=== PATIENT | male | born 1955 | race Caucasian/White ===

== ENCOUNTER 2019-12-25 13:59 | Outpatient (REF) | payer OTHER, SELFPAY | END 2019-12-25 14:00 | disposition home or self-care (01) | LOC: HO.LAB 13:59 | PROVIDERS: Visit Provider Internal Medicine | DX: Z20.828 Contact with and (suspected) exposure to other viral communicable diseases (principal) | CPT/HCPCS: U0003 ==

== ENCOUNTER → 2020-02-01 08:14 | Outpatient (BNVA) | payer OTHER, SELFPAY | PROVIDERS: Visit Provider Nurse Practitioner Gerontology | DX: E11.65 Type 2 diabetes mellitus with hyperglycemia (principal); E11.22 Type 2 diabetes mellitus with diabetic chronic kidney disease; E11.319 Type 2 diabetes mellitus with unspecified diabetic retinopathy without macular edema; E78.5 Hyperlipidemia, unspecified; I12.9 Hypertensive chronic kidney disease with stage 1 through stage 4 chronic kidney disease, or unspecified chronic kidney disease; N18.9 Chronic kidney disease, unspecified; Z71.89 Other specified counseling; Z79.899 Other long term (current) drug therapy; Z79.4 Long term (current) use of insulin; Z79.82 Long term (current) use of aspirin | CPT/HCPCS: Q3014 ==

== ENCOUNTER → 2020-04-26 09:35 | Outpatient (BNVA) | payer OTHER, SELFPAY | PROVIDERS: PCP Nurse Practitioner Family; Visit Provider Internal Medicine | DX: E11.22 Type 2 diabetes mellitus with diabetic chronic kidney disease (principal); I12.9 Hypertensive chronic kidney disease with stage 1 through stage 4 chronic kidney disease, or unspecified chronic kidney disease; N18.31 Chronic kidney disease, stage 3a; Z79.4 Long term (current) use of insulin; E78.5 Hyperlipidemia, unspecified; G47.33 Obstructive sleep apnea (adult) (pediatric); E66.9 Obesity, unspecified | CPT/HCPCS: 93005; 99202 ==

== ENCOUNTER → 2020-05-09 07:50 | Outpatient (BNVA) | payer OTHER, SELFPAY | PROVIDERS: PCP Nurse Practitioner Family; Visit Provider Nurse Practitioner Gerontology | CPT/HCPCS: 99212 ==

== ENCOUNTER → 2020-05-16 08:23 | Outpatient (BNVA) | payer OTHER, SELFPAY | PROVIDERS: PCP General Practice; Visit Provider Nurse Practitioner Gerontology | DX: E11.65 Type 2 diabetes mellitus with hyperglycemia (principal); E11.22 Type 2 diabetes mellitus with diabetic chronic kidney disease; I12.9 Hypertensive chronic kidney disease with stage 1 through stage 4 chronic kidney disease, or unspecified chronic kidney disease; N18.9 Chronic kidney disease, unspecified; Z79.4 Long term (current) use of insulin; E78.5 Hyperlipidemia, unspecified; I10 Essential (primary) hypertension | CPT/HCPCS: 82947; 99212 ==

== ENCOUNTER → 2020-05-30 08:55 | Outpatient (BNVA) | payer OTHER, SELFPAY | PROVIDERS: PCP Nurse Practitioner Family; Visit Provider Nurse Practitioner Gerontology | DX: E11.65 Type 2 diabetes mellitus with hyperglycemia (principal); E11.22 Type 2 diabetes mellitus with diabetic chronic kidney disease; N18.9 Chronic kidney disease, unspecified; E78.5 Hyperlipidemia, unspecified; I10 Essential (primary) hypertension; Z79.4 Long term (current) use of insulin | CPT/HCPCS: 82947; 99212 ==

== ENCOUNTER → 2020-06-06 07:57 | Outpatient (REF) | payer OTHER, SELFPAY ==
--- NOTE | ~2020-06-06 | NM_ITS ---
Lexiscan Myocardial perfusion study Indication: Diabetes, hypertension, hyperlipidemia, chronic kidney disease, obesity, assess for coronary disease and ischemia Technique: The patient was brought in for a Lexiscan perfusion study on 06/06/2020 and was injected 0.4 mg of Lexiscan intravenously. Within a minute of this injection 30 mCi of sestamibi was given intravenously. Images were obtained using the SPECT gamma camera interlaced with the gating device. Images were obtained in supine position. Resting perfusion study was performed on 06/11/2020. Patient was administered 30 mCi of sestamibi intravenously at rest. Images were then obtained in supine position. Total DLP 79mGy-cm. Images were processed with the software and compared side to side in short axis, horizontal long axis and vertical long axis views. Findings: Raw acquisition was reviewed. The stress perfusion study showed mildly diminished tracer uptake in the mid anterior wall. With CT attenuation correction there is improvement suggesting soft tissue attenuation artifact. The gated study shows normal LV systolic function with calculated LVEF of 65%. LV cavity is normal in size. The gated study shows normal wall thickening and contraction of segments. Resting study shows diminished tracer uptake along the mid anterior wall that is seen in both uncorrected as well as attenuation corrected images. Gating at rest reveals normal wall motion with ejection fraction at 49%-visually appears higher. The findings are consistent with no definitive reversible defects. Fixed mid anterior defect likely from soft tissue attenuation. NM/NM cardiolite stress test Impression: 1. Myocardial perfusion imaging study shows no definitive evidence of any ischemia or infarction. Likely normal myocardial perfusion. 2. Gated LVEF is 65% during stress. 3. Transient ischemic dilatation not present. EKG component of the test reported separately.
--- NOTE | 2020-06-06 08:06 | CA_ITS ---
Transthoracic Echocardiogram Patient (Last, First, Middle): Levi Del Toro M Gender: Male Date of : 1955 Age: 65 Procedure Date: 06/06/2020 Procedure Type: Transthoracic Echocardiogram Location: OP Height: 172.72 cm Weight: 89.81 kg BSA: 2.04 m2 Heart Rate: bpm BP: 118 / 52 mmHg Donor Processor: CHARLES Referring MD: Demetrius Mcclure MD Symptoms: I25.10 - Atherosclerotic heart disease of [place] coronary artery without angina pectoris Study Quality: Fair ECG Rhythm: Sinus Conclusions: - The left ventricular systolic function is normal. The visually estimated ejection fraction is between 55-60%. - There is mild calcification of the aortic valve. - No obvious valvular pathology seen on this study. Findings Procedure Information Contrast agent, definity, is being given per protocol without apparent complications. Left Ventricle Normal left ventricular cavity size. There is normal left ventricular wall thickness. The left ventricular systolic function is normal. The visually estimated ejection fraction is between 55-60%. There is no evidence of regional wall motion abnormalities. Diastolic function is normal for age. Right Ventricle The right ventricle was not well visualized. There is normal right ventricular systolic function. Atria The left atrium is normal in size. The right atrium is normal in size. Aortic Valve There is a normal trileaflet aortic valve. There is mild calcification of the aortic valve. There is no aortic valve stenosis. There is no aortic valve regurgitation. Mitral Valve The mitral valve appears normal. There is no mitral valve regurgitation. There is no mitral valve stenosis. Pulmonic Valve The pulmonic valve was not well visualized. Tricuspid Valve Normal tricuspid valve structure. There is no tricuspid valve regurgitation. The pulmonary artery systolic pressure is normal. Great Vessels The aortic annulus, sinuses of valsalva, and asc aorta are normal in size. Venous The inferior vena cava was not well visualized. Pericardium/Pleural There is no evidence of pericardial effusion. Prior Study Comparison No prior study available for comparison. Recommendations, Care & Conclusions No obvious valvular pathology seen on this study. Measurements 2D Linear Measurements IVSd: 0.91 0.6-0.9/0.6-1.0 cm LVIDd: 4.21 3.9-5.3/4.2-5.9 cm LVIDd Index: 2.06 2.4-3.2/2.2-3.1 cm/m2 LVIDs: 2.98 2.0-3.6 cm LVPWd: 1.00 0.7-1.1 cm Ao Root: 2.90 2.1-3.5 cm LA Diam: 3.80 2.7-3.8/3.0-4.0 cm LAIDs Index: 1.86 1.5-2.3 cm/m2 LV Mass: 160.90 67-162/88-224 g LV Mass Index: 78.87 43-95/49-115 g/m2 LVOT Diam: 2.00 3.0+(-)1.3 cm 2D Systolic Function EF 4C: 63.40 >55% EF 2C: 47.30 >55% EF BiP: 56.80 >55% Mitral Valve MV Pk E: 0.95 MV PK A: 0.66 MV Decel Time: 151.00 E/A: 1.40 E'Lateral: 12.50 E'Medial: 6.74 E/E' Med: 14.10 E/E' Lat: 7.60 PHT: 44.00 MVA PHT: 5.00 Decel Jerauld: 6.27 Aortic Valve AoV Pk Jarret: 1.22 AoV Pk Grad: 6.00 LVOT LVOT Pk Jarret: 1.13 LVOT Mn Jarret: 0.70 LVOT VTI: 0.27 LVOT Pk Grad: 5.00 LVOT Mn Grad: 2.00 LVOT Diam: 2.00 LVOT Area: 3.14 Diastolic Function MV Pk E: 0.95 MV Pk A: 0.66 E/A: 1.40 E'Medial: 6.74 E/E' Med: 14.10 E' Laterial: 12.50 E/E' Lat: 7.60 Tricuspid Valve TR Pk Jarret: 2.26 TR Pk Grad: 20.00 Great Vessels Aorta Ao Root-2D: 2.90 2.0-3.7 cm Ao Asc: 3.00 2.1-3.4 cm Updated in Other Vendor System with Status of Final Demetrius Mcclure MD electronically signed on 06/06/2020 6:35:54 PM with status of Final
--- NOTE | 2020-06-06 08:07 | CA_ITS ---
Acquisition Time: 2020-06-06 09:41:05 Total Exercise Time: 00:03:14 Test Indications: HTN, DM Medications: SEE CHART Protocol: SEAN Max HR: 112 BPM 73% of Pred: 153 BPM Max BP: 126/052 mmHG Max Work Load: 4.8 METS Tried exercise however pt became very tired, c/o SOB, request to stop the treaadmill. Test changed to pharmacological. No anginal sx. EKG with no arrhythmia, non-diagnostic for ischemia. Nuclear images to follow. Normotensive response to test. Test reviewed with Dr. Mcclure. Referred By: Demetrius Mcclure Overread By: Francia Chin NP
== END ==
LOC: HO.CARD 07:57
PROVIDERS: Visit Provider Internal Medicine
DX: I25.10 Atherosclerotic heart disease of native coronary artery without angina pectoris (principal); I11.0 Hypertensive heart disease with heart failure; N18.30 Chronic kidney disease, stage 3 unspecified; E11.65 Type 2 diabetes mellitus with hyperglycemia; E78.5 Hyperlipidemia, unspecified; Z79.4 Long term (current) use of insulin
CPT/HCPCS: 78452; 93016; 93017; 93018; 93306; A9500; J0280; J2785; Q9957

== ENCOUNTER → 2020-06-20 09:56 | Outpatient (BNVA) | payer OTHER, SELFPAY | PROVIDERS: PCP General Practice; Visit Provider Nurse Practitioner Family | DX: E11.22 Type 2 diabetes mellitus with diabetic chronic kidney disease (principal); I12.9 Hypertensive chronic kidney disease with stage 1 through stage 4 chronic kidney disease, or unspecified chronic kidney disease; N18.31 Chronic kidney disease, stage 3a; E78.5 Hyperlipidemia, unspecified; E66.9 Obesity, unspecified | CPT/HCPCS: 99212 ==

== ENCOUNTER 2020-07-01 11:39 | Outpatient (REF) | payer OTHER, SELFPAY ==
[2020-07-01 11:48] VITALS: BMI 30.4
[2020-07-01 11:49] VITALS: BP 140/63; PULSE 75; RESP 16; TEMP 36.4; O2SAT 97
== END 2020-07-01 11:40 | disposition home or self-care (01) ==
LOC: HO.MS 11:39
PROVIDERS: PCP General Practice; Visit Provider Ophthalmology
PROC: (CPT 66821; principal; 2020-07-01 13:40)
DX: H26.492 Other secondary cataract, left eye (principal); Z96.1 Presence of intraocular lens; E11.3593 Type 2 diabetes mellitus with proliferative diabetic retinopathy without macular edema, bilateral; E11.22 Type 2 diabetes mellitus with diabetic chronic kidney disease; I12.9 Hypertensive chronic kidney disease with stage 1 through stage 4 chronic kidney disease, or unspecified chronic kidney disease; N18.30 Chronic kidney disease, stage 3 unspecified; Z79.4 Long term (current) use of insulin; Z79.899 Other long term (current) drug therapy
CPT/HCPCS: 66821

== ENCOUNTER → 2020-08-14 08:10 | Outpatient (BNVA) | payer OTHER, SELFPAY | PROVIDERS: PCP General Practice; Visit Provider Nurse Practitioner Gerontology | DX: E11.65 Type 2 diabetes mellitus with hyperglycemia (principal); E11.22 Type 2 diabetes mellitus with diabetic chronic kidney disease; I12.9 Hypertensive chronic kidney disease with stage 1 through stage 4 chronic kidney disease, or unspecified chronic kidney disease; N18.30 Chronic kidney disease, stage 3 unspecified; E78.5 Hyperlipidemia, unspecified; Z79.4 Long term (current) use of insulin | CPT/HCPCS: 82947; Q3014 ==

== ENCOUNTER 2020-11-04 10:44 | Outpatient (REF) | payer MEDICARE, SELFPAY ==
--- NOTE | ~2020-11-04 | US_ITS ---
EXAMINATION: US VENOUS ULTRASOUND WITH DOPPLER LOWER EXTREMITY, LEFT CLINICAL INFORMATION: Left lower extremity pain and swelling. Assess for occult DVT. COMPARISON: None TECHNIQUE: Ultrasound of the deep veins is performed from the hip to the calf with compression sonography and color and pulse Doppler assessment. Spectral analysis with color-flow imaging is performed. FINDINGS: There is normal venous compression and respiratory variation and augmented flow. The visualized common femoral vein, superficial femoral vein, profunda femoral vein, popliteal vein, and the trifurcation region shows no evidence of deep venous thrombosis. No popliteal fossa cyst. There is some mild subcutaneous edema in the region of the calf consistent with the clinical history. No focal loculated fluid collection. US/US venous duplex LE LT IMPRESSION: No DVT demonstrated in the left lower extremity.
== END 2020-11-04 10:45 | disposition home or self-care (01) ==
LOC: HO.US 10:44
PROVIDERS: PCP General Practice; Visit Provider Family Medicine
DX: M79.89 Other specified soft tissue disorders (principal)
CPT/HCPCS: 93971

== ENCOUNTER 2020-11-05 07:52 | Emergency (ER) | payer MEDICARE, SELFPAY ==
--- NOTE | ~2020-11-05 | XR_ITS ---
EXAMINATION: LEFT FOOT AND ANKLE X-RAY CLINICAL INFORMATION: Atraumatic left foot and ankle swelling COMPARISON: None TECHNIQUE: 3 views of the left foot and 3 views of the left ankle FINDINGS: Left foot: There are Lisfranc fracture dislocations of the second through fifth metatarsal tarsal joints. There is lateral and probably dorsal displacement of the metatarsal bones with respect to the tarsal bones. There is a small erosion of the proximal phalanx of the great toe at the IP joint. There is soft tissue swelling over the midfoot. There is soft tissue arterial calcification. Left ankle: Bone alignment is normal. No fracture or dislocation is seen. The ankle mortise is normal. Soft tissues are normal. XR/XR ankle LT min 3V IMPRESSION: Left foot: Lisfranc fracture dislocations of the second through fifth metatarsal tarsal joints. Left ankle: Unremarkable exam.
--- NOTE | ~2020-11-05 | XR_ITS ---
EXAMINATION: LEFT FOOT AND ANKLE X-RAY CLINICAL INFORMATION: Atraumatic left foot and ankle swelling COMPARISON: None TECHNIQUE: 3 views of the left foot and 3 views of the left ankle FINDINGS: Left foot: There are Lisfranc fracture dislocations of the second through fifth metatarsal tarsal joints. There is lateral and probably dorsal displacement of the metatarsal bones with respect to the tarsal bones. There is a small erosion of the proximal phalanx of the great toe at the IP joint. There is soft tissue swelling over the midfoot. There is soft tissue arterial calcification. Left ankle: Bone alignment is normal. No fracture or dislocation is seen. The ankle mortise is normal. Soft tissues are normal. XR/XR foot LT min 3V IMPRESSION: Left foot: Lisfranc fracture dislocations of the second through fifth metatarsal tarsal joints. Left ankle: Unremarkable exam.
[2020-11-05 09:08] VITALS: BP 142/57; PULSE 79; RESP 18; TEMP 36.3; O2SAT 97; BMI 30.4
--- NOTE | 2020-11-05 10:07 | ED_ITS ---
HPI - Extremity Problem General Chief complaint: Extremity Injury, Lower Stated complaint: lt leg swollen & red Time Seen by Provider: 11/05/20 09:19 Source: patient and family Mode of arrival: ambulatory Limitations: language barrier ([place]raltarian-speaking) History of Present Illness HPI Narrative: 65-year-old male with a past medical history of diabetes, CKD, hypertension, hyperlipidemia and obesity presenting to the ED with complaints of atraumatic left lower leg/ankle/foot pain/swelling with redness for the past few days worse today. At [facility] yesterday and had an ultrasound of his left lower extremity although he is presenting here for further evaluation treatment because he has not heard about any of the results and continues to have pain and is concerned for possible ?cellulitis?. He denies any fevers, chills, dizziness, headaches, chest pain, paresthesias, shortness of breath, dyspnea on exertion, orthopnea, cough, abdominal pain, back pain, nausea/vomiting/diarrhea, black or bloody stools, weakness, recent travel or sick contacts, recent insect bites or any other symptoms complaints or concerns at this time. I reviewed the patient's ultrasound that was done as an outpatient yesterday and was negative for any DVTs or any other acute processes. MD Complaint: extremity pain and extremity swelling Onset (ago): day(s) (For the past few days worse today) Pain Consistency: constant Location: left and lower extremity (Lower leg/ankle/foot joint) Quality: aching Radiation: none Relieving factors: nothing Exacerbating factors: weight bearing, walking and palpation Associated symptoms: denies other symptoms Related Data Home Medications Medication Instructions Recorded Confirmed amlodipine 5 mg tablet 5 mg PO DAILY 02/01/20 08/14/20 aspirin 81 mg tablet,delayed 81 mg PO BEDTIME 02/01/20 08/14/20 release atorvastatin 40 mg tablet 40 mg PO DAILY 02/01/20 08/14/20 blood sugar diagnostic #10 ea 02/01/20 08/14/20 furosemide 20 mg tablet 20 mg PO DAILY 02/01/20 08/14/20 hydrochlorothiazide 25 mg tablet 25 mg PO DAILY 02/01/20 08/14/20 lancets 33 gauge #100 ea 02/01/20 08/14/20 losartan 100 mg tablet 100 mg PO QAM 02/01/20 08/14/20 metoprolol succinate 200 mg 200 mg PO DAILY 02/01/20 08/14/20 tablet,extended release 24 hr omega-3 fatty acids-fish oil 340 0 cap PO 02/01/20 08/14/20 mg-1,000 mg capsule omeprazole 20 mg capsule,delayed 20 mg PO QAM 02/01/20 08/14/20 release spironolactone 25 mg tablet 25 mg PO DAILY 04/26/20 08/14/20 sildenafil 100 mg tablet 100 mg PO DAILY PRN 05/16/20 08/14/20 Previous Rx's Medication Instructions Recorded metformin 500 mg tablet,extended 1,000 mg PO BID #120 tab 01/30/20 release 24 hr pen needle, diabetic 32 gauge x 1 ea SUBCUT QID 30 Days #100 ea 03/07/20 (BD Ultra-Fine Kyra Pen Needle) insulin aspart U-100 100 unit/mL See Rx Instructions SUBCUT QID 30 05/30/20 (3 mL) subcutaneous pen (Novo Days #60 ml Flexpen U-100 Insulin aspart) insulin glargine U-300 conc 300 125 unit SUBCUT DAILY #18 ml 09/22/20 unit/mL (3 mL) subcutaneous pen (Toujeo Max U-300 SoloStar) acetaminophen 500 mg tablet 1,000 mg PO QID PRN #14 tab 11/05/20 (Tylenol Extra Strength) cephalexin 500 mg capsule 500 mg PO Q6H 10 Days #40 cap 11/05/20 doxycycline monohydrate 100 mg 100 mg PO BID 10 Days #20 cap 11/05/20 capsule tramadol 50 mg tablet 50 mg PO BID PRN #14 tab 11/05/20 Allergies Allergy/AdvReac Type Severity Reaction Status Date / Time FRESH FRUIT Allergy Unknown ITCHY EARS Uncoded 08/14/20 08:42 THROAT Sesonal allergies Allergy Unknown itchiness Uncoded 08/14/20 08:42 some fresh fruit Allergy Unknown itchiness Uncoded 08/14/20 08:42 Review of Systems Review of Systems: Constitutional : No Weight loss, No Fever, No Chills, No Night Sweats, No Fatigue, No Malaise ENT/Mouth : No Hearing loss, No Ear Pain, No Nasal Congestion, No Sinus Pain, No Hoarseness, No sore throat, No Rhinorrhea, No Swallowing Difficulty Eyes: No Eye Pain, No Swelling, No Redness, No Foreign Body, No Discharge, No Vision Changes Cardiovascular : No Chest Pain, No SOB, No Dyspnea on Exertion, No Orthopnea, No Edema, No Palpitations Respiratory : No Cough, No Sputum, No Wheezing, No Smoke Exposure, No Dyspnea Gastrointestinal : No Nausea, No Vomiting, No Diarrhea, No Constipation, No abdominal Pain, No Hematochezia, No Melena Genitourinary : no irregular bleeding, No Dysuria, No Urinary Frequency, No Hematuria, No Urinary Incontinence, No Urgency, No Flank Pain, No Urinary Flow Changes, No Hesitancy Musculoskeletal : Positive left leg pain/swelling/surrounding erythema, No Myalgias Skin : No Skin Lesions, No rash Neuro : No Weakness, No Numbness, No Paresthesias, No Loss of Consciousness, No Dizziness, No Headache Psych : No Anxiety/Panic, No Depression, No SI/HI/AH/VH, No Social Issues, Heme/Lymph: No Bruising, No Bleeding,No Lymphadenopathy Endocrine : No Polyuria, No Polydipsia, No Temperature Intolerance Yes all other systems are reviewed and are negative [facility] Past Medical History Attestation statement: The following information was validated with the patient. Medical History Allergic rhinitis CKD (chronic kidney disease) stage 3, GFR 30-59 ml/min Erectile dysfunction Essential hypertension Hyperlipidemia LDL goal <70 Obesity (BMI 30-39.9) Obstructive sleep apnea Other and unspecified hyperlipidemia Retinopathy Tubular adenoma Type 2 diabetes mellitus with chronic kidney disease Type 2 diabetes mellitus with hyperglycemia, with long-term current use of insulin Vitamin D deficiency Surgical History History of surgical procedure on eye proper using laser Hx of cataract surgery Hx of cholecystectomy Hx of colonoscopy with polypectomy Family History Family History Father Myocardial infarction CVD (cardiovascular disease) Mother Diabetes Social History Social History Household Members: Significant Other Patient Tobacco Use Status: Former Tobacco user Advance Directives: Yes Advance Directives Information Provided: Yes Advance Directives on File: No Physical Exam Vital Signs: Vital Signs: Last Vital Signs Temp 97.3 F 11/05/20 09:08 Pulse 79 11/05/20 09:08 Resp 18 11/05/20 09:08 BP 142/57 H 11/05/20 09:08 Pulse Ox 97 11/05/20 09:08 Body Mass Index 30.4 vital signs have been reviewed as normal and appeared to be correct. Blood pressure hypertensive 142/57. Heart rate normal. Respiration rate normal. Temperature normal. Oxygen saturation normal. Appearance: Alert. Oriented X3. No acute distress. Head: Normal external exam. Normocephalic. Atraumatic. Eyes: PERRLA. EOMI. Conjunctiva and sclera normal. Eyelids normal. ENT: Pharynx normal. Uvula midline. Moist mucous membranes. Neck: Normal inspection. Neck supple. FROM. No adenopathy. No meningeal signs. CVS: Normal heart rate and rhythm. Heart sound normal. Pulses normal throughout. No murmurs/rales/gallops. Respiratory: No respiratory distress. Painless inspiration. Breath sounds normal. No wheezes/rales/rhonchi noted. Chest nontender. No accessory muscle usage noted or decreased air movement noted. Abdomen: Soft and nontender. Bowel sounds normal in all 4 quadrants. No distention noted. No organomegaly noted. No visible injury noted. Back: Full range of motion noted. No rashes/lesion/induration/fluctuance or signs of infection noted. Skin: Skin warm and dry. Normal skin color. Normal skin turgor. No rashes/lesions/lacerations noted. Extremities: Patient noted to have +1 pitting edema to the left lower peterson/ankle/foot area. Although he is noted to have pulses. No edema to right l ower extremity. Patient has mild erythema to the left lateral foot/ankle/left lower extremity joints. No streaking/induration/foreign bodies. Patient has full range of motion of all toe/foot/ankle joint. No ligamentous laxity noted. Otherwise all other extremities exhibit normal range of motion and nontender. Neuro: Oriented X 3. No motor deficit. No sensory deficit. Reflexes normal. Normal steady gait. No focal neuro deficits noted. Vascular: + radial pulses/+ 2 distal pedal pulses/+2 dorsalis pedis b/l. Normal cap refill. No cyanosis noted to upper extremity nails and lower extremity toes nails. Course Course Course Narrative: 10:45 - 65-year-old male presenting to the ED with complaints of atraumatic left lower extremity pain/swelling/erythema for the past few days worse today. Had an outpatient ultrasound done yesterday which was negative for DVT. On exam patient is noted to have mild soft tissue swelling and erythema consistent with cellulitis. No streaking/induration/fluctuance. X-ray obtained and revealed Lisfranc fracture dislocations of the second through fifth metatarsal tarsal joints. Therefore consulted with Orthopedics and they recommended a short posterior splint and crutches. Will DC home with symptomatic treatment referral to follow up with Orthopedics along with antibiotics for cellulitis infection and to return if any new or worsening symptoms follow-up with primary care provider. Patient and at bedside understands agrees this plan. MDM - Extremity (Nontraumatic) Medical Records Attestation: I reviewed the patient's medical records. Imaging Data Venous duplex ultrasound of left lower extremity: Attestation: I personally reviewed and interpreted this imaging study as follows: Radiologist's impression: FINDINGS: There is normal venous compression and respiratory variation and augmented flow. The visualized common femoral vein, superficial femoral vein, profunda femoral vein, popliteal vein, and the trifurcation region shows no evidence of deep venous thrombosis. ? No popliteal fossa cyst. There is some mild subcutaneous edema in the region of the calf consistent with the clinical history. No focal loculated fluid collection. US/US venous duplex LE LT IMPRESSION: No DVT demonstrated in the left lower extremity. Left ankle/foot x-ray: Attestation: I personally reviewed and interpreted this imaging study as follows: Radiologist's impression: FINDINGS: Left foot: There are Lisfranc fracture dislocations of the second through fifth metatarsal tarsal joints. There is lateral and probably dorsal displacement of the metatarsal bones with respect to the tarsal bones. There is a small erosion of the proximal phalanx of the great toe at the IP joint. There is soft tissue swelling over the midfoot. There is soft tissue arterial calcification. Left ankle: Bone alignment is normal. No fracture or dislocation is seen. The ankle mortise is normal. Soft tissues are normal. XR/XR foot LT min 3V IMPRESSION: Left foot: Lisfranc fracture dislocations of the second through fifth metatarsal tarsal joints. ? Left ankle: Unremarkable exam. Procedures Orthopedic Splinting/Casting Injury #1: Side: left Lower Extremity Injury Location: ankle, foot and toe Lower Extremity Immobilizer: posterior splint Other Orthopedic Equipment: crutches Discharge Plan Discharge Clinical Impression: Cellulitis, Lisfranc fracture Patient Disposition: Home, Self-Care Instructions: Cellulitis (ED), Foot Fracture in Adults (ED) Prescriptions: New doxycycline monohydrate 100 mg capsule 100 mg PO BID 10 Days Qty: 20 RF: 0 cephalexin 500 mg capsule 500 mg PO Q6H 10 Days Qty: 40 RF: 0 tramadol 50 mg tablet 50 mg PO BID PRN (Reason: pain) Qty: 14 RF: 0 acetaminophen [Tylenol Extra Strength] 500 mg tablet 1,000 mg PO QID PRN (Reason: fever or pain) Qty: 14 RF: 0 No Action metformin 500 mg tablet extended release 24 hr 1,000 mg PO BID Qty: 120 RF: 2 pen needle, diabetic [BD Ultra-Fine Kyra Pen Needle] 32 gauge x 5/32 needle 1 ea subcut QID 30 Days Qty: 100 RF: 11 Toujeo Max U-300 SoloStar 300 unit/mL (3 mL) insulin pen 125 unit subcut DAILY Qty: 18 RF: 1 spironolactone 25 mg tablet 25 mg PO DAILY RF: 0 insulin aspart U-100 [Novolog Flexpen U-100 Insulin] 100 unit/mL (3 mL) ins ulin pen See Rx Instructions subcut QID 30 Days Qty: 60 RF: 3 (DME) lancets 33 gauge misc See Rx Instructions ea .ROUTE .MEDSUPPLY Qty: 100 RF: 0 (DME) FreeStyle Lite Strips Strip See Rx Instructions ea Not Applicable .MEDSUPPLY Qty: 10 RF: 0 aspirin 81 mg tablet,delayed release (DR/EC) 81 mg PO BEDTIME RF: 0 atorvastatin 40 mg tablet 40 mg PO DAILY RF: 0 hydrochlorothiazide 25 mg tablet 25 mg PO DAILY RF: 0 Fish Oil 340-1,000 mg capsule 0 cap PO RF: 0 losartan 100 mg tablet 100 mg PO QAM RF: 0 furosemide 20 mg tablet 20 mg PO DAILY RF: 0 omeprazole 20 mg capsule,delayed release(DR/EC) 20 mg PO QAM RF: 0 amlodipine 5 mg tablet 5 mg PO DAILY RF: 0 metoprolol succinate 200 mg tablet extended release 24 hr 200 mg PO DAILY RF: 0 sildenafil 100 mg tablet 100 mg PO DAILY PRNRF: 0 Referrals: Serena Montilla MD [Primary Care Provider] - 2 days Remington Lebron MD [Physician] - 2 days Print Language: Gibraltarian
== END 2020-11-05 12:19 | disposition home or self-care (01) ==
PROVIDERS: Emergency Provider Internal Medicine; PCP General Practice
DX: S82.892A Other fracture of left lower leg, initial encounter for closed fracture (principal); M25.572 Pain in left ankle and joints of left foot; L03.116 Cellulitis of left lower limb; X58.XXXA Exposure to other specified factors, initial encounter; Y93.9 Activity, unspecified; Y92.9 Unspecified place or not applicable; Y99.9 Unspecified external cause status; Z79.899 Other long term (current) drug therapy; Z87.891 Personal history of nicotine dependence
CPT/HCPCS: 29515; 73610; 73630; 99283; 99284

== ENCOUNTER → 2020-11-07 10:56 | Outpatient (BNVA) | payer MEDICARE, SELFPAY | PROVIDERS: Visit Provider Physician Assistant | DX: E11.610 Type 2 diabetes mellitus with diabetic neuropathic arthropathy (principal) | CPT/HCPCS: 99202 ==

== ENCOUNTER → 2020-11-18 14:26 | Outpatient (BNVA) | payer MEDICARE, SELFPAY | PROVIDERS: PCP General Practice; Visit Provider Physician Assistant | DX: E11.610 Type 2 diabetes mellitus with diabetic neuropathic arthropathy (principal) | CPT/HCPCS: 99212 ==

== ENCOUNTER 2021-01-23 09:28 | Outpatient (REF) | payer MEDICARE, SELFPAY ==
--- NOTE | ~2021-01-23 | MM_ITS ---
EXAMINATION: BONE DENSITOMETRY CLINICAL INDICATION: Dislocation of the tarsometatarsal joint of the left foot. COMPARISON: This is the patient's baseline examination. TECHNIQUE: Using a [employer] DXA System (software version: 13.1) manufactured by [employer], dual-energy x-ray absorptiometry was performed of the lumbar spine and left hip. The images are of good technical quality. Summary results are attached. FINDINGS: AP SPINE L1-L2 (excluding L3 and L4): The data of L1-L4 has been changed to exclude the L3 and L4 vertebral bodies, because degenerative changes at these levels may cause overestimation of lumbar spine density. BMD 1.331 g/cm2, Z-score 1.2, T-score 1.1, normal. LEFT FEMUR, NECK: BMD 0.999 g/cm2, Z-score 0.3, T-score -0.5, normal. LEFT FEMUR, TOTAL: BMD 1.086 g/cm2, Z-score 0.3, T-score -0.1, normal. IDENTIFIED RISK FACTORS: Hypogonadism, renal, secondary osteoporosis. HISTORY OF FRACTURE: None listed. MEDICATIONS: Calcium, vitamin D. MM/XR DEXA axial skeleton IMPRESSION: 1. DIAGNOSIS: Normal bone density based on the lowest T-score value of -0.5 in the femoral neck applying World Health Organization criteria. 2. 10-YEAR FRACTURE RISK PREDICTION, FRAX: Major osteoporotic fracture (clinical spine, forearm, hip or shoulder) 2.7%. Hip fracture 0.3%. 3. Treatment Recommendations: NOF guidelines recommend consideration for treatment in postmenopausal women and men age 50 and older presenting with the following: -A hip or vertebral (clinical or morphometric) fracture. -T-score less than or equal to -2.5 at the femoral neck or spine after appropriate evaluation to exclude secondary causes. -Low bone mass at the hip or spine and a 10-year fracture probability by FRAX of greater than or equal to 3% for hip fracture or greater than or equal to 20% for major osteoporotic fracture based on the [place] adapted WHO algorithm. 4. Other Recommendations: All treatment decisions require clinical judgment and consideration of individual patient factors, including patient preferences, comorbidities, previous drug use, risk factors not captured in the FRAX model (e.g. frailty, falls, vitamin D deficiency, increased bone turnover, interval significant decline in bone density) and possible under or overestimation of fracture risk by FRAX. FUTURE SCAN RECOMMENDATION: People with diagnosed cases of osteoporosis or at high risk for fracture should have regular bone mineral density tests. For patients eligible for Medicare, routine testing is allowed once every 2 years. The testing frequency can be increased to one year for patients who have rapidly progressing disease, those who are receiving or discontinuing medical therapy to restore bone mass, or have additional risk factors.
== END 2021-01-23 09:29 | disposition home or self-care (01) ==
LOC: HO.MAMMO 09:28
PROVIDERS: Visit Provider General Practice
DX: Z13.820 Encounter for screening for osteoporosis (principal); S93.325D Dislocation of tarsometatarsal joint of left foot, subsequent encounter; E29.1 Testicular hypofunction; Z79.899 Other long term (current) drug therapy
CPT/HCPCS: 77080

== ENCOUNTER → 2021-03-21 09:59 | Outpatient (BNVA) | payer MEDICARE, SELFPAY | PROVIDERS: PCP General Practice; Visit Provider Nurse Practitioner Gerontology | DX: E11.65 Type 2 diabetes mellitus with hyperglycemia (principal); I12.9 Hypertensive chronic kidney disease with stage 1 through stage 4 chronic kidney disease, or unspecified chronic kidney disease; E11.22 Type 2 diabetes mellitus with diabetic chronic kidney disease; N18.30 Chronic kidney disease, stage 3 unspecified; E78.5 Hyperlipidemia, unspecified; Z79.4 Long term (current) use of insulin | CPT/HCPCS: 82947; 83036; 99212 ==

== ENCOUNTER → 2021-06-03 10:35 | Outpatient (BNVA) | payer OTHER, SELFPAY | PROVIDERS: PCP General Practice; Referring Provider General Practice; Visit Provider Internal Medicine | DX: I12.9 Hypertensive chronic kidney disease with stage 1 through stage 4 chronic kidney disease, or unspecified chronic kidney disease (principal); E11.22 Type 2 diabetes mellitus with diabetic chronic kidney disease; N18.31 Chronic kidney disease, stage 3a; E11.65 Type 2 diabetes mellitus with hyperglycemia; E78.5 Hyperlipidemia, unspecified; G47.33 Obstructive sleep apnea (adult) (pediatric); E66.9 Obesity, unspecified; Z68.30 Body mass index [BMI] 30.0-30.9, adult; Z79.4 Long term (current) use of insulin | CPT/HCPCS: 93005; 99212 ==

== ENCOUNTER → 2021-06-20 08:47 | Outpatient (BNVA) | payer OTHER, SELFPAY | PROVIDERS: PCP General Practice; Visit Provider Nurse Practitioner Gerontology | DX: E11.65 Type 2 diabetes mellitus with hyperglycemia (principal); E11.22 Type 2 diabetes mellitus with diabetic chronic kidney disease; I12.9 Hypertensive chronic kidney disease with stage 1 through stage 4 chronic kidney disease, or unspecified chronic kidney disease; N18.30 Chronic kidney disease, stage 3 unspecified; Z79.4 Long term (current) use of insulin | CPT/HCPCS: 82947; 83036; 99212 ==

== ENCOUNTER 2021-08-09 03:14 | Inpatient (IN) | payer OTHER, SELFPAY ==
--- NOTE | ~2021-08-09 | CT_ITS ---
EXAMINATION: CT HEAD WITHOUT CONTRAST CT CERVICAL SPINE WITHOUT CONTRAST CLINICAL INFORMATION: Fall. On blood thinners. COMPARISON: None. TECHNIQUE: Multidetector CT imaging of the head and cervical spine was performed without the use of intravenous contrast. Multiplanar reformats are reviewed. This CT examination was performed using dose optimization techniques as appropriate, variously including the following: *Automated exposure control *Adjustment of mA and/or kV according to patient size (this includes techniques or standardized protocols for targeted exams where dose is matched to indication/reason for exam; i.e. extremities or head) *Use of iterative reconstruction technique DLP: 1442 mGy-cm. FINDINGS: There is no evidence of acute intracranial hemorrhage or territorial infarction. No abnormal mass effect or midline shift is seen. Sears to white matter differentiation is well preserved. No extra-axial fluid collections are identified. The ventricles are normal in size. There is no abnormal attenuation within the brain parenchyma. Cavernous carotid calcifications. The osseous structures and soft tissues are normal. The mastoid air cells and visualized portions of the paranasal sinuses are well-aerated. Atlantooccipital alignment is maintained. The vertebral bodies and posterior elements align normally. No acute fracture or subluxation. Vertebral body heights are maintained. Endplate osteophytes and loss of disc space height present from C4 through T1, with uncovertebral arthrosis. Venetie bilateral carotid bulb calcifications. The imaged lung apices are clear CT/CT cervical spine wo con IMPRESSION: No acute intracranial pathology. No cervical spine fracture or malalignment.
--- NOTE | ~2021-08-09 | XR_ITS ---
EXAMINATION: XR CHEST CLINICAL INFORMATION: Confirm endotracheal tube placement. COMPARISON: Chest radiograph 08/14/2021. TECHNIQUE: Frontal view of the chest was obtained. FINDINGS: An endotracheal tube terminates 1 cm superior to the prince. Enteric tube terminates in the region of the gastric antrum. Right upper quadrant surgical clips are noted. Multifocal airspace type opacities are present in the lung with findings most pronounced in the right upper lung zone. No effusions or pneumothoraces noted. Mild left base airspace opacity is noted with obscuration of the left hemidiaphragmatic margin. A left subclavian catheter terminates in projection with the right atrium. XR/XR chest 1V IMPRESSION: *Endotracheal tube terminating 1 cm superior to the prince. *Enteric tube terminating in the region of the gastric antrum. *Left subclavian catheter terminating projection with the right atrium. *Multifocal airspace disease with findings most pronounced the right upper lung zone slightly increased in prominence compared with 08/14/2021 findings may represent infection. *Newly identified left base airspace opacity compared with 08/14/2021 which may present atelectasis and/or consolidation. This critical result regarding endotracheal tube placement was discussed with NARA Jason by telephone at 08/14/2021 11:11 PM and it was ascertained that the content and urgency of the report was understood at the time of direct communication.
--- NOTE | ~2021-08-09 | XR_ITS ---
EXAMINATION: XR CHEST CLINICAL INFORMATION: OG tube placement COMPARISON: 08/18/2021 TECHNIQUE: Frontal view of the chest was obtained. FINDINGS: Endotracheal tube terminates 4.5 cm above the prince. Dobbhoff tube extends into the small bowel. There is no separate enteric tube identified. Left subclavian central venous catheter terminates over the right atrium. Cardiac leads overlie the chest. The lungs are well expanded. Diffuse patchy bilateral airspace opacities. This is similar to prior. No pneumothorax. No effusion. The cardiomediastinal silhouette is unchanged. XR/XR chest 1V IMPRESSION: Endotracheal tube terminates 4.5 cm above the prince. Dobbhoff tube terminates in the small bowel. Similar appearance of diffuse bilateral airspace opacities.
--- NOTE | ~2021-08-09 | CT_ITS ---
EXAMINATION: CT ABDOMEN AND PELVIS WITHOUT CONTRAST CLINICAL INFORMATION: Sepsis. Elevated liver function tests. COMPARISON: Previous abdominal ultrasound and CT from 2006 TECHNIQUE: Multidetector volumetric imaging was performed from the superior aspect of the liver through the pubic symphysis. Sagittal and coronal reformatted images were obtained on the technologist's workstation. This CT examination was performed using dose optimization techniques as appropriate, variously including the following: *Automated exposure control *Adjustment of mA and/or kV according to patient size (this includes techniques or standardized protocols for targeted exams where dose is matched to indication/reason for exam; i.e. extremities or head) *Use of iterative reconstruction technique DLP: 925 mGy-cm FINDINGS: Consolidation suggestive of pneumonia, right greater than left. There are tiny bilateral pleural effusions. LUNG BASES: There is bilateral lower lobe LIVER, GALLBLADDER, AND BILIARY TREE: The liver is cirrhotic. No focal liver lesion. No biliary duct dilatation. The gallbladder has been removed. PANCREAS: Unremarkable. SPLEEN: Unremarkable. ADRENAL GLANDS: Unremarkable. KIDNEYS AND URETERS: The kidneys are normal in size, shape, and attenuation. No hydronephrosis, hydroureter, or calculi seen. No perinephric stranding. BLADDER: Unremarkable. GASTROINTESTINAL TRACT: There is mild wall thickening of the colon questionable for colitis versus changes related to liver disease. There is a small duodenal diverticulum adjacent to the head of the pancreas. The small bowel is otherwise normal. The appendix is normal. The stomach is normal. There is a small amount of ascites. ABDOMINAL WALL: No significant hernia is appreciated. LYMPH NODES: Normal. VASCULAR: There are upper abdominal varices. PELVIC VISCERA: Prostate gland is slightly enlarged measuring 3 4 x 4.4 cm in AP and transverse dimension. OSSEOUS STRUCTURES: There are generative changes of the spine. CT/CT abdomen pelvis wo con IMPRESSION: Cirrhotic-appearing liver. Small amount of ascites. Wall thickening of the colon question representing colitis versus changes related to liver disease. Bilateral lower lobe infiltrates, right greater than left and tiny bilateral pleural effusions. Fleischner guidelines were followed.
--- NOTE | ~2021-08-09 | XR_ITS ---
EXAMINATION: XR CHEST CLINICAL INFORMATION: NG tube placement COMPARISON: CT scan performed at 8:09 AM, one hour ago TECHNIQUE: Frontal view of the chest was obtained. XR/XR chest 1V FINDINGS/IMPRESSION: Since the CT scan, a feeding tube has been removed which had its tip postpyloric in position. An NG tube is in place with the tip at the GE junction and the side port in the esophagus. This should be advanced. An esophageal temperature probe is present with its tip about 10 cm above the GE junction. An ET tube about 5 cm above the prince. Persistent airspace opacities.
--- NOTE | ~2021-08-09 | US_ITS ---
EXAMINATION: US VENOUS ULTRASOUND WITH DOPPLER LOWER EXTREMITY, BILATERAL CLINICAL INFORMATION: Edema and swelling. COMPARISON: None TECHNIQUE: Ultrasound of the deep veins is performed from the hip to the calf with compression sonography and color and pulse Doppler assessment. Spectral analysis with color-flow imaging is performed. FINDINGS: RIGHT: There is normal venous compression and respiratory variation and augmented flow. The visualized common femoral vein, superficial femoral vein, profunda femoral vein, popliteal vein, and the trifurcation region shows no evidence of deep venous thrombosis. There is no significant popliteal fossa cyst. LEFT: There is normal venous compression and respiratory variation and augmented flow. The visualized common femoral vein, superficial femoral vein, profunda femoral vein, popliteal vein, and the trifurcation region shows no evidence of deep venous thrombosis. There is no significant popliteal fossa cyst. There is a fluid collection along the medial lower extremity, which appears to extend through the subcutaneous fat. If the patient's symptoms persist, followup ultrasound in 5 days 7 days might be of value to exclude proximal propagation from a non-visualized calf vein. US/US venous duplex LE IMPRESSION: * No DVT demonstrated in the bilateral lower extremities. * There is a fluid collection along the medial LEFT lower extremity which is nonspecific. The collection appears to extend through the subcutaneous fat may represent a ruptured Slater's cyst.
--- NOTE | ~2021-08-09 | XR_ITS ---
EXAMINATION: XR CHEST CLINICAL INFORMATION: Nasogastric tube placement. COMPARISON: 08/14/2021 chest radiograph. TECHNIQUE: Frontal view of the chest was obtained. XR/XR chest 1V FINDINGS/IMPRESSION: Final images shows an enteric tube with tip terminating over the distal gastric lumen. Nonobstructive bowel gas pattern. Pulmonary findings without significant change.
--- NOTE | ~2021-08-09 | XR_ITS ---
EXAMINATION: XR CHEST CLINICAL INFORMATION: Hypoxia COMPARISON: 08/15/2021 TECHNIQUE: Frontal view of the chest was obtained. FINDINGS: Endotracheal tube remains in place with tip approximately 6 cm above the prince. Diffuse bilateral airspace opacities again are noted. These appear somewhat less confluent in the right upper lobe but appear worsened elsewhere. Previously seen left lower lobe consolidation has improved. No definite pleural effusion or pneumothorax. Cardiomediastinal silhouette unchanged. Enteric tube descends the esophagus into the stomach with the tip not seen off the inferior margin of the film. XR/XR chest 1V IMPRESSION: Persistent diffuse bilateral airspace opacities. Improved and less confluent in the right upper lobe but worsened elsewhere.
--- NOTE | ~2021-08-09 | CT_ITS ---
EXAMINATION: CT CHEST WITHOUT CONTRAST CLINICAL INFORMATION: Hypoxia. Question alveolar hemorrhage pneumonia. COMPARISON: Chest 08/14/2021. TECHNIQUE: Multidetector volumetric CT imaging of the chest was done. Axial MIP volume rendering provided. Sagittal and coronal reformatted images were obtained. This CT examination was performed using dose optimization techniques as appropriate, variously including the following: *Automated exposure control *Adjustment of mA and/or kV according to patient size (this includes techniques or standardized protocols for targeted exams where dose is matched to indication/reason for exam; i.e. extremities or head) *Use of iterative reconstruction technique DLP: 331 mGy-cm FINDINGS: Lungs and pleura *Marked right upper lobe multifocal airspace disease. *Mild scattered superior segment right upper pulmonary lobe airspace opacities. *Small dependent layering bilateral pleural effusions and moderate bibasilar compressive atelectasis of the lungs. *No pneumothoraces. *Mild left upper lobe airspace opacities. Mild right middle lobe airspace opacities. Mediastinum: Left subclavian catheter terminating in the region of the cavoatrial junction. Normal heart size. Diffuse coronary artery calcific atherosclerosis. No mediastinal lymphadenopathy. Endotracheal tube terminating 2.5 cm superior to the prince. CHEST WALL: No axillary lymphadenopathy. Internally visualized abdominal structures: Cholecystectomy clips noted. Enteric tube terminating in the region of the gastric antrum. The adrenal glands are not fully included in the image [id number]. Osseous structures: Multilevel endplate osteophytosis of the thoracic spine which is mild. CT/CT chest wo con IMPRESSION: *Dense multifocal right upper lobe consolidation and mild multifocal right middle and left upper lobe consolidation. Findings are suspicious for infection. *Small bilateral pleural effusions and bibasilar dependent compressive atelectasis of the lungs. *Endotracheal tube terminating 2.5 cm superior to the prince. *Left subclavian catheter terminating at the cavoatrial junction. *Enteric tube terminating with in the gastric antrum. This result including findings regarding endotracheal tube positioning was discussed with NARA Jason MD by telephone at 08/15/2021 2:16 AM and it was ascertained that the content and urgency of the report was understood at the time of direct communication.
--- NOTE | ~2021-08-09 | XR_ITS ---
EXAMINATION: XR CHEST CLINICAL INFORMATION: Line placement COMPARISON: Previous chest x-rays most recent from yesterday TECHNIQUE: Frontal view of the chest was obtained. FINDINGS: There is an endotracheal tube with tip 4 cm above the prince. There is a nasogastric tube with tip projecting over the distal stomach. There is a left subclavian line with tip projecting over the cavoatrial junction. There is a new right jugular line with tip projecting over the SVC. The cardiac and mediastinal contours are stable. There is bilateral multilobar airspace disease. This is not appear appreciably changed from yesterday's exam. There may be volume loss to the left hemithorax. There is no significant pleural effusion. There is no pneumothorax. Bony structures are unremarkable. XR/XR chest 1V IMPRESSION: Right jugular line projects over SVC. Satisfactory position of support line and tubes. I lateral multilobar airspace disease probably representing pneumonia not appreciably changed.
--- NOTE | ~2021-08-09 | CT_ITS ---
EXAMINATION: CT CHEST WITHOUT CONTRAST CLINICAL INFORMATION: ARDS. COMPARISON: Chest radiograph yesterday and CT chest 08/15/2021. TECHNIQUE: Multidetector volumetric CT imaging of the chest was done. Axial MIP volume rendering provided. Sagittal and coronal reformatted images were obtained. This CT examination was performed using dose optimization techniques as appropriate, variously including the following: *Automated exposure control *Adjustment of mA and/or kV according to patient size (this includes techniques or standardized protocols for targeted exams where dose is matched to indication/reason for exam; i.e. extremities or head) *Use of iterative reconstruction technique DLP: 346 mGy-cm FINDINGS: LUNGS AND PLEURA: Again seen are diffuse lung space opacities. There is some improvement in consolidation in the right upper lobe but persistent abnormality is present. There is an improvement in bilateral pleural effusions with only trace remaining. Bibasilar atelectasis remains. There is a mild increase in peripheral patchy densities seen in the left upper lobe (5:176). MEDIASTINUM: ET tube is about 4.5 cm above the prince. A left subclavian central line has its tip in the right atrium. A feeding tube is present with its tip postpyloric in position. There is mild cardiac enlargement. No pericardial effusion. AXILLA: No lymphadenopathy. UPPER ABDOMEN: Status post cholecystectomy. OSSEOUS STRUCTURES: Degenerative changes again noted in the spine. CT/CT chest wo con IMPRESSION: Considerable airspace opacity remains throughout the lungs. Some improvement in consolidation in the right upper lobe with some mild increase in opacities in the left upper lobe. Small pleural effusions have improved with trace fluid remaining. Fleischner guidelines were followed.
--- NOTE | ~2021-08-09 | XR_ITS ---
EXAMINATION: XR CHEST CLINICAL INFORMATION: Feeding tube check COMPARISON: Chest x-ray 08/14/2021 TECHNIQUE: Frontal view of the chest was obtained. FINDINGS: There is a feeding tube with tip projecting over the small bowel probably in the proximal jejunum. This has advanced into the small bowel compared to August 14 chest x-ray. There is a paucity of bowel gas seen in the abdomen and pelvis. No free air is seen. There is airspace disease at the lung bases. XR/XR chest 1V IMPRESSION: Feeding tube tip projects over the small bowel probably in the proximal jejunum.
--- NOTE | ~2021-08-09 | XR_ITS ---
EXAMINATION: XR CHEST CLINICAL INFORMATION: Wheezing. Concern for fluid. COMPARISON: Chest x-ray 08/11/2021 TECHNIQUE: Frontal portable view of the chest was obtained. 1711 hours FINDINGS: Low lung volume causing prominence of the pulmonary vasculature. No dense consolidation. No large pleural effusion or pneumothorax. Cardiac mediastinal contours are unchanged. Multilevel degenerative spondylosis spine. XR/XR chest 1V IMPRESSION: Low lung volume. No acute abnormality of chest.
--- NOTE | ~2021-08-09 | XR_ITS ---
EXAMINATION: XR CHEST CLINICAL INFORMATION: Evaluate for infection COMPARISON: 08.09.2021 TECHNIQUE: Frontal view of the chest was obtained. FINDINGS: No significant abnormality is noted involving the heart, lungs, mediastinum, bony thorax or soft tissues. XR/XR chest 1V IMPRESSION: Unremarkable examination.
--- NOTE | ~2021-08-09 | US_ITS ---
EXAMINATION: US VENOUS ULTRASOUND WITH DOPPLER LOWER EXTREMITY, LEFT CLINICAL INFORMATION: Left lower extremity swelling COMPARISON: Left lower extremity DVT study 11/04/2020 TECHNIQUE: Ultrasound of the deep veins is performed from the hip to the calf with compression sonography and color and pulse Doppler assessment. Spectral analysis with color-flow imaging is performed. FINDINGS: There is normal venous compression and respiratory variation and augmented flow. The visualized common femoral vein, superficial femoral vein, profunda femoral vein, popliteal vein, and the trifurcation region shows no evidence of deep venous thrombosis. There is no significant popliteal fossa cyst. If the patient's symptoms persist, followup ultrasound in 5 days 7 days might be of value to exclude proximal propagation from a non-visualized calf vein. US/US venous duplex LE IMPRESSION: No DVT demonstrated in the left lower extremity.
--- NOTE | ~2021-08-09 | MR_ITS ---
EXAMINATION: MR CERVICAL SPINE WITHOUT AND WITH CONTRAST CLINICAL INFORMATION: MSSA bacteremia. Neck pain. COMPARISON: Cervical spine CT 08/09/2021. TECHNIQUE: MRI of the cervical spine was performed with routine sequences without and with intravenous contrast. A total of 10 ml of Gadavist was intravenously administered. FINDINGS: The vertebral alignment appears normal There is disc height loss at C4-C5, C5-C6, C6-C7, and C7-T1. Mild endplate edema seen at C6-C7 and C7-T1. Chronic degenerative endplate changes are noted with subchondral cystic change and Schmorl's node, better defined on the recent cervical spine CT from 08/09/2021. There is no evidence of subchondral collapse. No cervical cord signal abnormality is seen. No abnormal enhancement is seen within the spinal canal. The imaged portions of the intracranial contents appear normal. There are small amount of retropharyngeal fluid. There is fluid within the pharynx. Ill-defined soft tissue edema is seen within the posterior paraspinal soft tissues from C5 to T2. No defined collection is seen within this region. SPINAL LEVELS: C2-C3: No posterior disc abnormality. No spinal canal or neural foraminal stenosis. C3-C4: Mild disc bulging. No spinal canal or neural foraminal stenosis. C4-C5: Disc osteophyte complex with left uncovertebral hypertrophy and ligamentum flavum infolding resulting in severe spinal canal stenosis. Severe left and moderate right neural foraminal stenosis. C5-C6: Disc osteophyte complex with uncovertebral hypertrophy resulting in moderate spinal canal stenosis and severe bilateral neural foraminal stenosis. C6-C7: Osteophyte complex with left more than right uncovertebral hypertrophy resulting in severe left and moderate right neural foraminal stenosis. C7-T1: Disc osteophyte complex with uncovertebral hypertrophy resulting in mild to moderate spinal canal stenosis with severe bilateral neural foraminal stenosis. MR/MR cervical spine wo/w con IMPRESSION: No definite destructive change identified. No definite discitis osteomyelitis is seen at this time. Nonspecific edema seen at the endplates of C6-C7 and C7-T1, presumably degenerative. If there is high concern for discitis osteomyelitis, consider repeat examination at a later date. At C4-C5 there is severe spinal canal stenosis with cord deformity and severe left and moderate right neural foraminal stenosis. Consider neurosurgical evaluation. Additional multilevel high-grade neural foraminal stenosis is demonstrated and detailed above. Small amount of retropharyngeal fluid.
--- NOTE | ~2021-08-09 | CT_ITS ---
EXAMINATION: CT foot RT wo con, CT foot LT wo con CLINICAL INFORMATION: Reason for Exam EDEMA COMPARISON: None. TECHNIQUE: Unenhanced CT of the left and right feet with multiple coronal and sagittal reformatted images. This CT examination was performed using dose optimization techniques as appropriate, variously including the following: *Automated exposure control *Adjustment of mA and/or kV according to patient size (this includes techniques or standardized protocols for targeted exams where dose is matched to indication/reason for exam; i.e. extremities or head) *Use of iterative reconstruction technique DLP: 283 mGy-cm FINDINGS: Left foot: Extensive mid foot erosions, osseous fragments and subluxations are present. No definitive acute appearing fractures visualized. Diffuse subcutaneous reticulation and soft tissue inflammatory changes are noted with findings most pronounced along the dorsum of the midfoot. No soft tissue emphysematous changes. Extensive vascular calcifications. No widening of the Lisfranc ligament space. Fragmentation is most pronounced in the lateral cuneiform and intermediate cuneiform. Right foot: Marked midfoot fragmentation and cortical irregularity is present. Extensive subcutaneous reticulation is noted. Subcutaneous reticulation and thickening is most prominent along the dorsum of the midfoot. No soft tissue emphysematous changes are identified. Diffuse vascular calcifications are present. No widening of the Lisfranc ligamentous space identified. Marked joint space narrowing and osteophytosis is present at the midfoot metatarsal articulations. No acute appearing fractures identified. CT/CT foot LT wo con IMPRESSION: Unenhanced CT of the left and right feet. *Diffuse extensive subcutaneous edema and possible inflammatory changes. Findings are most pronounced along the dorsum of the left and right midfoot regions. Findings may represent a combination of edema and/or cellulitis. No soft tissue emphysema. *Marked left mid foot chronic degenerative changes and multifocal midfoot osseous fragments. Findings may represent a combination of neuropathic arthropathy and advanced osteoarthritis (Charcot foot). *Marked right mid foot chronic degenerative changes. *Diffuse vascular calcifications.
--- NOTE | ~2021-08-09 | US_ITS ---
EXAMINATION: US VENOUS WITH DOPPLER UPPER EXTREMITY, BILATERAL CLINICAL INFORMATION: Edema and swelling COMPARISON: None TECHNIQUE: Ultrasound of the upper extremity is performed using compression sonography and color and pulse Doppler flow with assessment of augmentation of flow. There is also imaging and Doppler assessment of the jugular and subclavian veins. Spectral analysis with color-flow imaging is performed. FINDINGS: Respiratory variation, normal compression, and augmented flow are noted throughout the upper extremity including the axillary, brachial, cubital, and radial and ulnar veins. There is normal flow in the internal jugular and subclavian veins. There is no visible deep or superficial thrombophlebitis. If the patient's symptoms progress, a followup ultrasound in 5 -7 days might be of value to exclude proximal propagation from a nonvisualized distal arm vein. US/US venous duplex UE BI IMPRESSION: No DVT demonstrated in the bilateral upper extremities
--- NOTE | ~2021-08-09 | CT_ITS ---
EXAMINATION: CT LOWER EXTREMITY NON JOINT WITHOUT CONTRAST, LEFT CLINICAL INFORMATION: Possible fasciitis extending from foot COMPARISON: CT foot 08/15/2021 TECHNIQUE: A noncontrast CT of the left lower leg is performed with sagittal and coronal reformats. This CT examination was performed using dose optimization techniques as appropriate, variously including the following: *Automated exposure control *Adjustment of mA and/or kV according to patient size (this includes techniques or standardized protocols for targeted exams where dose is matched to indication/reason for exam; i.e. extremities or head) *Use of iterative reconstruction technique DLP: 376 FINDINGS: There is diffuse subcutaneous edema throughout the lower leg which is nonspecific. No subcutaneous emphysema. There is a longitudinal fluid collection extending proximally along the tibialis posterior muscle approximately 15-20 cm. There is no thickened peripheral rim or significant complexity to suggest that this collection is infected, as opposed to the subcutaneous collection of the plantar foot where there is an adjacent skin defect. However, as these fluid collections may be contiguous via the flexor tendon sheaths, the possibility of infection cannot be excluded. Redemonstration of the neuropathic fracture subluxations of the midfoot. CT/CT lower leg LT wo con IMPRESSION: Diffuse subcutaneous edema and elongated fluid collection extending along the tibialis posterior muscle which may be contiguous with the flexor tendon sheaths and a subcutaneous collection of the plantar foot. Therefore, the possibility of infection extending into the calf cannot be excluded. No soft tissue gas.
--- NOTE | ~2021-08-09 | US_ITS ---
EXAMINATION: US ABDOMEN COMPLETE CLINICAL INFORMATION: New onset cirrhosis. COMPARISON: Previous CT of the abdomen and pelvis 08/11/2021 and abdominal ultrasound October 2006 TECHNIQUE: Real-time imaging of the abdominal viscera. Exam is significantly limited due to bowel gas. FINDINGS: PANCREAS: Not visualized ABDOMINAL AORTA: Not visualized INFERIOR VENA CAVA: Not visualized LIVER: Liver echotexture is increased and heterogeneous suggestive of hepatocellular disease. The contour of the liver appears irregular suggestive of cirrhosis. No focal liver lesion is seen. GALLBLADDER: Surgically removed. COMMON BILE DUCT: Normal in caliber measuring 0.4 cm in diameter. RIGHT KIDNEY: Normal. No hydronephrosis. No renal calculi or focal parenchymal lesions. The kidney measures 10.2 cm in maximum dimension. LEFT KIDNEY: Normal. No hydronephrosis. No renal calculi or focal parenchymal lesions. The kidney measures 12.3 cm in maximum dimension. SPLEEN: Normal. The spleen measures 12.2 cm in maximum dimension. FREE FLUID: There is a small amount of ascites. US/US abdomen complete IMPRESSION: Very limited exam. Cirrhotic-appearing liver and small amount of ascites.
--- NOTE | ~2021-08-09 | US_ITS ---
EXAMINATION: US VENOUS WITH DOPPLER UPPER EXTREMITY, BILATERAL CLINICAL INFORMATION: Swelling. COMPARISON: None TECHNIQUE: Ultrasound of the upper extremity is performed using compression sonography and color and pulse Doppler flow with assessment of augmentation of flow. There is also imaging and Doppler assessment of the jugular and subclavian veins. Spectral analysis with color-flow imaging is performed. FINDINGS: Respiratory variation, normal compression, and augmented flow are noted throughout the upper extremity including the axillary, brachial, cubital, and radial and ulnar veins. There is normal flow in the internal jugular and subclavian veins. There is no visible deep or superficial thrombophlebitis. If the patient's symptoms progress, a followup ultrasound in 5 -7 days might be of value to exclude proximal propagation from a nonvisualized distal arm vein. US/US venous duplex UE BI IMPRESSION: No DVT demonstrated in the bilateral upper extremities
--- NOTE | ~2021-08-09 | XR_ITS ---
EXAMINATION: XR CHEST CLINICAL INFORMATION: Respiratory distress. COMPARISON: 08/12/2021 TECHNIQUE: Frontal view of the chest was obtained. FINDINGS: Support devices: Left central venous catheter with tip terminating at the cavoatrial junction. Increased opacification is seen in the right upper lobe laterally. There is mild elevation of the right hemidiaphragm. The left lung is clear. The heart and mediastinal structures are unremarkable. XR/XR chest 1V IMPRESSION: Right upper lobe infiltrate represents interval worsening from the previous study.
--- NOTE | ~2021-08-09 | CT_ITS ---
EXAMINATION: CT HEAD WITHOUT CONTRAST CT CERVICAL SPINE WITHOUT CONTRAST CLINICAL INFORMATION: Fall. On blood thinners. COMPARISON: None. TECHNIQUE: Multidetector CT imaging of the head and cervical spine was performed without the use of intravenous contrast. Multiplanar reformats are reviewed. This CT examination was performed using dose optimization techniques as appropriate, variously including the following: *Automated exposure control *Adjustment of mA and/or kV according to patient size (this includes techniques or standardized protocols for targeted exams where dose is matched to indication/reason for exam; i.e. extremities or head) *Use of iterative reconstruction technique DLP: 1442 mGy-cm. FINDINGS: There is no evidence of acute intracranial hemorrhage or territorial infarction. No abnormal mass effect or midline shift is seen. Sears to white matter differentiation is well preserved. No extra-axial fluid collections are identified. The ventricles are normal in size. There is no abnormal attenuation within the brain parenchyma. Cavernous carotid calcifications. The osseous structures and soft tissues are normal. The mastoid air cells and visualized portions of the paranasal sinuses are well-aerated. Atlantooccipital alignment is maintained. The vertebral bodies and posterior elements align normally. No acute fracture or subluxation. Vertebral body heights are maintained. Endplate osteophytes and loss of disc space height present from C4 through T1, with uncovertebral arthrosis. [place] bilateral carotid bulb calcifications. The imaged lung apices are clear CT/CT head/brain wo con IMPRESSION: No acute intracranial pathology. No cervical spine fracture or malalignment.
--- NOTE | ~2021-08-09 | XR_ITS ---
EXAMINATION: XR CHEST CLINICAL INFORMATION: Chest pain and shortness of breath COMPARISON: 02/04/2016 TECHNIQUE: Frontal view of the chest was obtained. FINDINGS: No significant abnormality is noted involving the heart, lungs, mediastinum, bony thorax or soft tissues. XR/XR chest 1V IMPRESSION: Unremarkable examination.
[2021-08-09 03:29] VITALS: BP 113/47; BP 136/70; PULSE 76; PULSE 78; RESP 31; TEMP 36.7; O2SAT 97; O2SAT 98; BMI 29.7
--- NOTE | 2021-08-09 04:34 | ECG_ITS ---
Test Reason : FALL Blood Pressure : / mmHG Vent. Rate : 142 BPM Atrial Rate : 000 BPM P-R Int : 000 ms QRS Dur : 064 ms QT Int : 248 ms P-R-T Axes : 000 004 097 degrees QTc Int : 381 ms Atrial fibrillation with rapid ventricular response with premature ventricular or aberrantly conducted complexes Abnormal QRS-T angle, consider primary T wave abnormality Abnormal ECG When compared with ECG of 29-JUL-2012 13:24, Atrial fibrillation has replaced Sinus rhythm Vent. rate has increased BY [address] no longer elevated in Lateral leads Referred By: Jim Blake Electronically Signed By:Solomon Ferrer
--- NOTE | 2021-08-09 04:34 | ED_ITS ---
HPI - Fall General Chief Complaint: Fall Stated Complaint: FALL Time Seen by Provider: 08/09/21 04:23 Source: patient Mode of arrival: EMS Limitations: no limitations History of Present Illness HPI Narrative: 66-year-old male who presents emergency department for evaluation of a fall with head injury. The patient states that over the past week he has been experiencing pain in his upper back and shoulders. States this pain came on gradually has gotten progressively worse. He describes as a constant, aching pa in which is moderate in intensity, the pain is worse with movement of his head, neck and arms. He did not take any medications for the pain. He states he does take 1 aspirin daily. The patient states that he got up this morning to go to the bathroom and he slipped and fell. He did hit his head but denied any loss of consciousness. He states that he has been having headache for the past week and he also had a fall 1 week prior but did not hit his head and did not pass out. He states that he has been experiencing chills over the past week. He has had an occasional sore throat and cough. He has had occasional shortness of breath and dyspnea on exertion. He denied abdominal pain, frequency, urgency, dysuria or changes bowel movements. MD complaint: fall Onset (ago): hour(s) (1) Fall from: standing Fall witnessed: no Place fall occurred: home Loss of consciousness: none Symptoms prior to fall: chest pain Context: tripped/slipped Location of injury: head Location of injury - extremities: right: shoulder Severity: mild Severity scale (1-10): 3 Quality: dull Associated symptoms (after fall): headache, neck pain, chest pain, shortness of breath and other (Upper back pain) Related Data Home Medications Medication Instructions Recorded Confirmed amlodipine 5 mg tablet 5 mg PO DAILY 02/01/20 06/20/21 aspirin 81 mg tablet,delayed 81 mg PO BEDTIME 02/01/20 06/20/21 release atorvastatin 40 mg tablet 40 mg PO DAILY 02/01/20 06/20/21 blood sugar diagnostic #10 ea 02/01/20 06/03/21 furosemide 20 mg tablet 20 mg PO DAILY 02/01/20 06/20/21 hydrochlorothiazide 25 mg tablet 25 mg PO DAILY 02/01/20 06/20/21 lancets 33 gauge #100 ea 02/01/20 06/20/21 losartan 100 mg tablet 100 mg PO QAM 02/01/20 06/20/21 metoprolol succinate 200 mg 200 mg PO DAILY 02/01/20 06/20/21 tablet,extended release 24 hr omeprazole 20 mg capsule,delayed 20 mg PO QAM 02/01/20 06/20/21 release spironolactone 25 mg tablet 25 mg PO DAILY 04/26/20 06/20/21 sildenafil 100 mg tablet 100 mg PO DAILY PRN 05/16/20 06/03/21 calcium carbonate 600 mg-vitamin 0 tab PO DAILY PRN 06/20/21 06/20/21 D3 10 mcg (400 unit) tablet Previous Rx's Medication Instructions Recorded metformin 500 mg tablet,extended 1,000 mg PO BID #120 tabs 01/30/20 release 24 hr pen needle, diabetic 32 gauge x 1 ea subcut QID 30 days #100 ea 03/05/21 (BD Ultra-Fine Kyra Pen Needle) dulaglutide 0.75 mg/0.5 mL 0.75 mg (0.5 mL) subcut QWEEK #6 mL 06/20/21 subcutaneous pen injector (Trulicity) glucagon 3 mg/actuation nasal 3 mg intranasal ONCE unresponsive 06/20/21 spray (Baqsimi) hypoglycemia 30 days #2 ea glucose 4 gram chewable tablet 12 g PO Q15M PRN hypoglycemia #60 06/20/21 (Dex4 Glucose) tabs insulin aspart U-100 100 unit/mL See Rx Instructions subcut QID 30 06/20/21 (3 mL) subcutaneous pen (Novolog days #60 mL Flexpen U-100 Insulin aspart) insulin glargine U-300 conc 300 90 unit (0.3 mL) subcut DAILY 30 06/20/21 unit/mL (3 mL) subcutaneous pen days #9 mL (Toujeo Max U-300 SoloStar) Allergies Allergy/AdvReac Type Severity Reaction Status Date / Time FRESH FRUIT Allergy Unknown ITCHY EARS Uncoded 06/03/21 10:48 THROAT Sesonal allergies Allergy Unknown itchiness Uncoded 06/03/21 10:48 some fresh fruit Allergy Unknown itchiness Uncoded 06/03/21 10:48 Review of Systems Review of Systems: Yes all other systems are reviewed and are negative [facility] Past Medical History PMFSH Narrative: Past medical history: Reviewed below, patient also states that he has a history of diabetes, hypertension hyperlipidemia. Chart also states that he has chronic kidney disease stage 3 with GFR between 30 and 59. Past surgical history: None. Social history: He denies tobacco, alcohol and drug use. 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 Head: Yes normal to inspection and Yes normocephalic Ears: external ears normal General nose exam: Normal external nose present Face and sinus: Yes normal facial exam Mouth: Normal oral and palatal mucosa present Throat: Yes posterior oropharynx normal Eyes: General: appearance normal, both eyes and all related structures Pupils: Equal, round and reactive pupils present Neck: Other: C-spine tenderness Neck: Yes normal visual inspection, Yes no lymphadenopathy, Yes trachea midline and Yes supple Chest: Chest palpation & inspection: normal inspection of the chest and normal palpation of entire chest wall Resp: Effort & Inspection: normal respiratory effort and able to speak in com plete sentences Auscultation: clear to auscultation bilaterally Cardio: Rate: tachycardic Rhythm: abnormal rhythm irregularly irregular Heart sounds: S1 normal heart sound present, S2 normal heart sound present and no murmurs GI: Inspection: Yes normal to inspection Palpation (GI): Soft to palpation, nontender and no guarding Auscultation: normal bowel sounds Back/Spine/Pelvis: Other: Patient has tenderness palpation his upper back and shoulders bilaterally Skin: General skin exam: no rashes or lesions noted Neuro: General: oriented to person and oriented to place Cranial nerves: Yes CN's II-XII intact bilaterally and Yes Equal, round and reactive pupils present Cognition (Neuro): normal cognition Motor exam (neuro): 5/5 motor strength present throughout Extrem: General: Yes normal to inspection Psych: Appearance: grossly normal Speech and movement: Normal speech and movement present Affect: normal affect Attitude: cooperative Thought process: Normal thought process present Thought content: Normal thought content present Course Course Course Narrative: 66-year-old man who presents emergency department for evaluation of 1 week bilateral shoulder and upper back pain with associated chills, sore throat, headaches, cough, shortness of breath dyspnea on exertion. Prior to coming to emergency department patient got up to go to the bathroom, tripped and fell and struck his head. He had no loss of consciousness. Patient presented to emerg ency department by ambulance. Vital signs revealed an elevated respiratory rate of 31 otherwise was unremarkable . Physical examination did reveal tenderness with palpation of his occiputal scalp with no hematoma. He also had C-spine tenderness and tenderness palpation of his upper back and shoulders bilaterally. His heart exam did reveal rapid irregular heart rate. I ordered a laboratory evaluation to include CBC, CMP, PT/INR, PTT, troponin, lipase, EKG, chest x-ray one view. 0430: Patient's EKG is consistent atrial fibrillation with rapid ventricular response. The patient states he sees a mobile designer but does not know if he has atrial fibrillation. Cardiology note from 06/03/2021 does not mention atrial fibrillation. The patient was given diltiazem 10 mg IV. 0650: Laboratory evaluation: WBC elevated 15,000. Anemia with an H&H of 17 and 37. Thrombocytopenia platelet count [id number]. Sodium low 127. Chloride and CO2 low 94 and 17. BUN and creatinine elevated 64 and 2.35. Glucose elevated 177. AST, ALT, bilirubin elevated 88, 55 and 2.0. High sensitivity troponin I detectable but not elevated at 18.1. Lipase elevated 169. COVID-19 negative. Radiology evaluation: Chest x-ray, CT scan of the head and cervical spine were all negative. Given his electrolyte abnormalities and his abnormal BUN and creatinine, I believe the patient will look need to be admitted for further evaluation. Patient also has new onset atrial fibrillation with rapid RVR which did respond to 1 dose of IV diltiazem. I will repeat his BMP and troponin. We will obtain a urinalysis, urine sodium, urine osmolality, serum osmolality. I will discuss admission with the covering hospitalist 0729: I did discuss the patient's presentation with the covering hospitalist Dr. Morgan and the patient will be admitted for further treatment. - Fall Lab Data Result diagrams: 08/09/21 04:31 08/09/21 05:02 Labs: Lab Results 08/09/21 08/09/21 08/09/21 Range/Units 04:31 04:31 04:31 WBC 15.0 H (4.8-10.8) X10*3/uL RBC 4.22 L (4.60-5.80) X10*6/uL Hgb 12.7 L (14.0-18.0) g/dl Hct 37.6 L (42.0-52.0) % MCV 89.1 (80.0-98.0) fL MCH 30.1 (27.0-33.0) pg MCHC 33.8 (31.0-36.0) g/dl RDW 13.4 (11.0-16.0) % Plt Count 63 L (160-400) X10*3/uL MPV 13.4 H (9.4-12.4) fL Immature Gran % (Auto) Cancelled Neut % (Auto) Cancelled Lymph % (Auto) Cancelled [place] % (Auto) Cancelled Eos % (Auto) Cancelled Baso % (Auto) Cancelled Lymph # (Auto) Cancelled [place] # (Auto) Cancelled Eos # (Auto) Cancelled Baso # (Auto) Cancelled Abs Immat Gran (auto) Cancelled Absolute Neuts (auto) Cancelled Absolute Nucleated RBC 0.000 (0.0-0.012) X10*3/uL Nucleated RBC % (auto) 0.0 (0.0-0.2) /100WBC Neutrophils % (Manual) 64 (45-73) % Band Neutrophils % 4 (3-5) % Lymphocytes % (Manual) 9 L (20-40) % Monocytes % (Manual) 23 H (2-11) % Abs Neuts (Manual) 10.2 H (2.0-8.3) X10*3/uL Lymphocytes # (Manual) 1.4 (1.2-4.9) X10*3/uL Monocytes # (Manual) 3.5 H (0.1-1.2) X10*3/uL [place] Cells PRESENT Toxic Vacuolation PRESENT Platelet Estimate DECREASED (NORMAL) Large Platelets PRESENT Plt Morphology Comment NORMAL RBC Morphology NOTED Polychromasia 1+ (0-2) /OIF Microcytosis 1+ (5-14) /OIF Macrocytosis 1+ (5-14) /OIF [place] Cells 1+ (0-2) /OIF PT 14.5 H (9.9-13.0) SEC INR 1.3 H (0.9-1.1) APTT 28.8 (24.1-38.0) SEC Sodium (135-145) mmol/L Potassium (3.3-5.1) mmol/L Chloride (96-108) mmol/L Carbon Dioxide (22-29) mmol/L Anion Gap (12-20) BUN (9-16) mg/dL Creatinine (0.5-1.4) mg/dL Estim Creat Clear Calc Estimated GFR Random Glucose (60-115) mg/dL Calcium (8.4-10.2) mg/dL Total Bilirubin (0.0-1.0) mg/dL AST (5-37) U/L ALT (0-40) U/L Alkaline Phosphatase (39-117) U/L Troponin I High Sens (<3.5-35.0) ng/L Total Protein (6.5-8.0) g/dL Albumin (3.5-5.0) g/dL Lipase (8-78) U/L Ethyl Alcohol mg/dL COVID-19 (LINDA) Negative (Negative) COVID-19 Clin Com See Note [id number] 08/09/21 Range/Units 04:31 04:37 05:02 WBC (4.8-10.8) X10*3/uL RBC (4.60-5.80) X10*6/uL Hgb (14.0-18.0) g/dl Hct (42.0-52.0) % MCV (80.0-98.0) fL MCH (27.0-33.0) pg MCHC (31.0-36.0) g/dl RDW (11.0-16.0) % Plt Count (160-400) X10*3/uL MPV (9.4-12.4) fL Immature Gran % (Auto) Neut % (Auto) Lymph % (Auto) [place] % (Auto) Eos % (Auto) Baso % (Auto) Lymph # (Auto) [place] # (Auto) Eos # (Auto) Baso # (Auto) Abs Immat Gran (auto) Absolute Neuts (auto) Absolute Nucleated RBC (0.0-0.012) X10*3/uL Nucleated RBC % (auto) (0.0-0.2) /100WBC Neutrophils % (Manual) (45-73) % Band Neutrophils % (3-5) % Lymphocytes % (Manual) (20-40) % Monocytes % (Manual) (2-11) % Abs Neuts (Manual) (2.0-8.3) X10*3/uL Lymphocytes # (Manual) (1.2-4.9) X10*3/uL Monocytes # (Manual) (0.1-1.2) X10*3/uL [place] Cells Toxic Vacuolation Platelet Estimate (NORMAL) Large Platelets Plt Morphology Comment RBC Morphology Polychromasia /OIF Microcytosis /OIF Macrocytosis /OIF [place] Cells /OIF PT (9.9-13.0) SEC INR (0.9-1.1) APTT (24.1-38.0) SEC Sodium 127 L (135-145) mmol/L Potassium 5.1 (3.3-5.1) mmol/L Chloride 94 L (96-108) mmol/L Carbon Dioxide 17 L (22-29) mmol/L Anion Gap 21 H (12-20) BUN 64 H (9-16) mg/dL Creatinine 2.35 H (0.5-1.4) mg/dL Estim Creat Clear Calc 32.5 Estimated GFR 28 Random Glucose 177 H (60-115) mg/dL Calcium 9.0 (8.4-10.2) mg/dL Total Bilirubin 2.0 H (0.0-1.0) mg/dL AST 88 H (5-37) U/L ALT 55 H (0-40) U/L Alkaline Phosphatase 46 (39-117) U/L Troponin I High Sens 18.1 (<3.5-35.0) ng/L Total Protein 7.2 (6.5-8.0) g/dL Albumin 3.0 L (3.5-5.0) g/dL Lipase 169 H (8-78) U/L Ethyl Alcohol < 10 mg/dL COVID-19 (LINDA) (Negative) COVID-19 Clin Com Discharge Plan Discharge Patient Disposition: Admitted As Inpatient Prescriptions: No Action metformin 500 mg tablet extended release 24 hr 1,000 mg PO BID Qty: 120 2RF pen needle, diabetic [BD Ultra-Fine Kyra Pen Needle] 32 gauge x 5/32 needle 1 ea subcut QID 30 Days Qty: 100 11RF spironolactone 25 mg tablet 25 mg PO DAILY (DME) lancets 33 gauge misc See Rx Instructions .ROUTE .MEDSUPPLY Qty: 100 Rx Instructions: As directed (DME) FreeStyle Lite Strips Strip See Rx Instructions Not Applicable .MEDSUPPLY Qty: 10 Rx Instructions: As directed aspirin 81 mg tablet,delayed release (DR/EC) 81 mg PO BEDTIME atorvastatin 40 mg tablet 40 mg PO DAILY hydrochlorothiazide 25 mg tablet 25 mg PO DAILY losartan 100 mg tablet 100 mg PO QAM furosemide 20 mg tablet 20 mg PO DAILY omeprazole 20 mg capsule,delayed release(DR/EC) 20 mg PO QAM amlodipine 5 mg tablet 5 mg PO DAILY metoprolol succinate 200 mg tablet extended release 24 hr 200 mg PO DAILY sildenafil 100 mg tablet 100 mg PO DAILY PRN calcium carbonate-vitamin D3 600 mg-10 mcg (400 unit) tablet 0 tab PO DAILY PRN Baqsimi 3 mg/actuation spray,non-aerosol 3 mg intranasal ONCE 30 Days Qty: 2 6RF Rx Instructions: [place] once for severe hypoglycemia when patient cannot self-treat with glucose. Afterwards turn on side. May repeat after 15 minutes if patient does not respond. glucose [Dex4 Glucose] 4 gram tablet,chewable 12 g PO Q15M PRN (Reason: hypoglycemia) Qty: 60 2RF Rx Instructions: until symptoms of low blood sugar are controlled insulin aspart U-100 [Novolog Flexpen U-100 Insulin] 100 unit/mL (3 mL) insulin pen See Rx Instructions subcut QID 30 Days Qty: 60 3RF Rx Instructions: 20 u small meal, 25 u large meal 5 u snack, + 2 units for bg >200 subcut 4 times a day; Toujeo Max U-300 SoloStar 300 unit/mL (3 mL) insulin pen 90 unit subcut DAILY 30 Days Qty: 9 6RF Trulicity 0.75 mg/0.5 mL pen injector 0.75 mg subcut QWEEK Qty: 6 1RF
[2021-08-09 04:49] LABS: Hematocrit 37.6 % (42.0-52.0); Hemoglobin 12.7 g/dl (14.0-18.0); Mean Corpuscular HGB Conc 33.8 g/dl (31.0-36.0); Mean Corpuscular Hemoglobin 30.1 pg (27.0-33.0); Mean Corpuscular Volume 89.1 fL (80.0-98.0); Mean Platelet Volume 13.4 fL (9.4-12.4); PLT CLUMP 1; Red Blood Count 4.22 X10*6/uL (4.60-5.80); Red Cell Distribution Width 13.4 % (11.0-16.0)
[2021-08-09 04:51] LABS: INTERNATIONAL NORM RATIO 1.3 (0.9-1.1); Prothrombin Time 14.5 SEC (9.9-13.0)
[2021-08-09 04:54] LABS: Partial Thromboplastin Time 28.8 SEC (24.1-38.0)
[2021-08-09 04:59] LABS: COVID-19 Test Negative (Negative)
[2021-08-09] MEDS: dilTIAZem HCL 50 MG/10 ML VIAL 10 MG IVPUSH (05:01)
[2021-08-09] MEDS: 0.9 % Sodium Chloride 1,000 ML 999 ML IV (05:03)
[2021-08-09 05:04] LABS: Troponin-I High Sensitivity 18.1 ng/L (<3.5-35.0)
[2021-08-09 05:09] LABS: Band Neutrophils Percent 4 % (3-5); Burr Cells 1+ (0-2) /OIF; Large Platelet PRESENT; Lymphocytes Percent Manual 9 % (20-40); Macrocytosis 1+ (5-14) /OIF; Microcytosis 1+ (5-14) /OIF; Monocytes Percent Manual 23 % (2-11); Neutrophils Percent Manual 64 % (45-73); Platelet Estimate DECREASED (NORMAL); Platelet Morphology Comment NORMAL; Polychromasia 1+ (0-2) /OIF; RBC Morphology NOTED; Smudge Cells PRESENT; Toxic Vacuolation PRESENT
[2021-08-09 05:10] LABS: Lymphocytes Absolute Manual 1.4 X10*3/uL (1.2-4.9); Monocytes Absolute Manual 3.5 X10*3/uL (0.1-1.2); Neutrophils Absolute Manual 10.2 X10*3/uL (2.0-8.3); Platelet Count 63 X10*3/uL (160-400)
[2021-08-09 05:16] LABS: Ethanol < 10 mg/dL
[2021-08-09 05:25] LABS: Alanine Aminotransferase 55 U/L (0-40); Alkaline Phosphatase 46 U/L (39-117); Anion Gap 21 (12-20); Aspartate Amino Transferase 88 U/L (5-37); Blood Urea Nitrogen 64 mg/dL (9-16); Carbon Dioxide 17 mmol/L (22-29); Chloride 94 mmol/L (96-108); Creatinine Clr Calc Pharmacy 32.5; Estimated Glomerular Filt Rate 28; Glucose Random 177 mg/dL (60-115); Lipase 169 U/L (8-78); Potassium 5.1 mmol/L (3.3-5.1); Sodium 127 mmol/L (135-145); Total Protein 7.2 g/dL (6.5-8.0)
[2021-08-09 05:28] VITALS: BP 105/47; PULSE 80; RESP 28; O2SAT 94
[2021-08-09 05:56] VITALS: BP 105/47; PULSE 81; RESP 26; O2SAT 94
[2021-08-09 08:30] LABS: Appearance Urine CLEAR; Color Urine YELLOW; Glucose Urine UA NEG (NEG); Leukocyte Esterase Urine NEG (NEG); Nitrite Urine NEG (NEG); PH 5.5 (5.0-8.0); Specific Gravity - Urine 1.025 (1.005-1.025); Urine Blood NEG (NEG); Urine Ketones NEG (NEG); Urine Protein TRACE MG/DL (NEG-TRACE)
[2021-08-09 08:34] LABS: Osmolality Urine 422 mosm/kg (373-1093); Sodium Urine Random < 20.0 mmol/L
--- NOTE | 2021-08-09 08:44 | PHA.MEDREC ---
Pharmacy Consult ? Medication Reconciliation Pharmacy has completed the medication reconciliation. Pt states that toujeo increased to 135 units, and novolog is 35 units tidwm
--- NOTE | 2021-08-09 09:59 | PC.NURSE ---
Pt incontinent of stool. incontinence care performed with ax2.
--- NOTE | 2021-08-09 10:20 | PM.IMHP ---
History of Present Illness Date of Service: 08/09/21 Attending physician on admission: Ambrocio Morgan Chief Complaint: upper back and shoulder pain 66-year-old gentleman with past medical history of diabetes mellitus on insulin, hypertension, hyperlipidemia, chronic kidney disease stage 3, echocardiogram June 12 showed EF 55-60% no valvular pathology and normal diastolic dysfunction, patient refuse to repeat history since he feels he provided all information to the ER physician, as per Dr. Crabtree from ER patient came to emergency room due to upper back and shoulder pain of 1 week duration as per patient he fell down 1 week ago with no head injury or loss of consciousness and since then he has been having constant achy pain worse with movement of his head neck in arms he did not take any analgesics SF took 1 aspirin, this morning patient was going to the bathroom and he slipped and fell down hit his head but denied loss of consciousness he also complains of headache of 1 week duration, he denies any chest pain, no palpitation he has occasional shortness of breath on exertion he also complains of on and off shakiness he denies abdominal pain no nausea no vomiting no urinary frequency urgency or dysuria, in the emergency room patient noted to be in atrial fibrillation with rapid ventricular response patient treated with 1 dose of diltiazem 10 mg IV ventricular rate improved, chest x-ray CT head and cervical spine showed no acute abnormality troponin is mildly elevated at 18.1, BUN 64 creatinine 2.35 ,with no recent renal function, blood sugars 177,AST, ALT, bilirubin elevated 88, 55 and 2.0., COVID-19 [place], [place] [id number] that is chronic, low sodium of 127, patient is being admitted to hospital with a diagnosis of new onset atrial fibrillation with RVR acute on chronic kidney disease, mild hyponatremia. Review of Systems Review of Systems: General no fever ,+ chills. CVS no chest pain, no palpitation. Respiratory no cough, shortness of breath with exertion Gastrointestinal no nausea no vomiting, no abdominal pain skin no rash no urgency, no frequency Yes all other systems are reviewed and are negative [facility] Medical History Allergic rhinitis Erectile dysfunction Obstructive sleep apnea Retinopathy Tubular adenoma Vitamin D deficiency Family History Father Myocardial infarction CVD (cardiovascular disease) Mother Diabetes Surgical History History of surgical procedure on eye proper using laser Hx of cataract surgery Hx of cholecystectomy Hx of colonoscopy with polypectomy Social History Household Members: Significant Other Patient Tobacco Use Status: Never used Tobacco Advance Directives: No service: No Current occupational status: retired and disabled 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 Meds Allergies Allergy/AdvReac Type Severity Reaction Status Date / Time FRESH FRUIT Allergy Unknown ITCHY EARS Uncoded 06/03/21 10:48 THROAT Sesonal allergies Allergy Unknown itchiness Uncoded 06/03/21 10:48 some fresh fruit Allergy Unknown itchiness Uncoded 06/03/21 10:48 Active Medications: Current Medications Acetaminophen (Acetaminophen 325 Mg Tablet) 650 mg PO Q6H PRN PRN Reason: Pain, Mild (Pain Scale 1-3) Ondansetron HCl (Ondansetron Hcl 4 Mg/2 Ml Vial) 4 mg IVPUSH Q8H PRN PRN Reason: Nausea and Vomiting Sodium Chloride (0.9 % Sodium Chloride Flush 3 Ml Syringe) 3 ml IVFLUSH [facility] Home Medications Medication Instructions Recorded Confirmed Last Taken Type amlodipine 5 mg tablet 5 mg PO DAILY 02/01/20 08/09/21 08/08/21 History aspirin 81 mg tablet,delayed 81 mg PO BEDTIME 02/01/20 08/09/21 08/08/21 History release atorvastatin 40 mg tablet 40 mg PO DAILY 02/01/20 08/09/21 08/08/21 History blood sugar diagnostic #10 ea 02/01/20 06/03/21 Unknown History furosemide 20 mg tablet 20 mg PO DAILY 02/01/20 08/09/21 08/08/21 History hydrochlorothiazide 25 mg tablet 25 mg PO DAILY 02/01/20 08/09/21 08/08/21 History lancets 33 gauge #100 ea 02/01/20 06/20/21 Unknown History losartan 100 mg tablet 100 mg PO QAM 02/01/20 08/09/21 08/08/21 History metoprolol succinate 200 mg 200 mg PO BEDTIME 02/01/20 08/09/21 08/08/21 History tablet,extended release 24 hr omeprazole 20 mg capsule,delayed 20 mg PO QAM 02/01/20 08/09/21 Unknown History release spironolactone 25 mg tablet 25 mg PO DAILY 04/26/20 08/09/21 08/08/21 History sildenafil 100 mg tablet 100 mg PO DAILY PRN Sexual Activity 05/16/20 08/09/21 Unknown History calcium carbonate 600 mg-vitamin 1 tab PO DAILY 06/20/21 08/09/21 08/08/21 History D3 10 mcg (400 unit) tablet atorvastatin 40 mg tablet 1 tab PO BEDTIME 08/09/21 08/09/21 08/08/21 History dulaglutide 0.75 mg/0.5 mL 0.75 mg subcut WE 08/09/21 08/09/21 08/06/21 History subcutaneous pen injector (Trulicity) insulin aspart U-100 100 unit/mL 35 unit subcut TIDAC 08/09/21 08/09/21 08/08/21 History (3 mL) subcutaneous pen (Novolog Flexpen U-100 Insulin aspart) insulin glargine U-300 conc 300 135 unit subcut DAILY 08/09/21 08/09/21 08/08/21 History unit/mL (3 mL) subcutaneous pen (Toujeo Max U-300 SoloStar) Physical Exam Vital Signs and Narrative: Vital Signs: Last Vital Signs Temp 98.0 F 08/09/21 03:29 Pulse 81 08/09/21 05:56 Resp 26 H 08/09/21 05:56 BP 105/47 L 08/09/21 05:56 Pulse Ox 94 08/09/21 05:56 O2 Del Method 08/09/21 05:56 BMI result Body Mass Index 29.7 Const: Other: General awake alert x3, no acute distress. HEENT PERRLA , anicteric sclera Neck supple no JVD. CVS irregular rate rhythm, Respiratory lungs clear to auscultation, no respiratory distress, no wheeze, no rhonchi. Gastrointestinal abdomen soft, nontender, bowel sounds audible,. Extremities no edema. Neuro nonfocal , no tremor Skin no rash psych appropriate affect Results Labs CBC and Chem 7: 08/09/21 04:31 08/09/21 10:52 Labs: Laboratory Results - last 24 hr 08/09/21 08/09/2122 04:31 04:31 04:31 MCV 89.1 MCH 30.1 MCHC 33.8 RDW 13.4 Plt Count 63 L MPV 13.4 H Immature Gran % (Auto) Cancelled Neut % (Auto) Cancelled Lymph % (Auto) Cancelled Cedar % (Auto) Cancelled Eos % (Auto) Cancelled Baso % (Auto) Cancelled Lymph # (Auto) Cancelled Cedar # (Auto) Cancelled Eos # (Auto) Cancelled Baso # (Auto) Cancelled Abs Immat Gran (auto) Cancelled Absolute Neuts (auto) Cancelled Absolute Nucleated RBC 0.000 Nucleated RBC % (auto) 0.0 Neutrophils % (Manual) 64 Band Neutrophils % 4 Lymphocytes % (Manual) 9 L Monocytes % (Manual) 23 H Abs Neuts (Manual) 10.2 H Lymphocytes # (Manual) 1.4 Monocytes # (Manual) 3.5 H Smudge Cells PRESENT Toxic Vacuolation PRESENT Platelet Estimate DECREASED Large Platelets PRESENT Plt Morphology Comment NORMAL RBC Morphology NOTED Polychromasia 1+ (0-2) Microcytosis 1+ (5-14) Macrocytosis 1+ (5-14) Kylee Cells 1+ (0-2) PT 14.5 H INR 1.3 H APTT 28.8 Anion Gap Estim Creat Clear Calc Estimated GFR Random Glucose Calcium Total Bilirubin AST ALT Alkaline Phosphatase Troponin I High Sens Total Protein Albumin Lipase Urine Color Urine Appearance Urine pH Ur Specific [place] Urine Protein Urine Glucose (UA) Urine Ketones Urine Blood Urine Nitrite Ur Leukocyte Esterase Urine Osmolality Ur Random Sodium Ethyl Alcohol COVID-19 (LINDA) Negative COVID-19 Clin Com See Note 08/09/21 08/09/21 08/09/21 04:31 04:37 05:02 MCV MCH MCHC RDW Plt Count MPV Immature Gran % (Auto) Neut % (Auto) Lymph % (Auto) Cedar % (Auto) Eos % (Auto) Baso % (Auto) Lymph # (Auto) Cedar # (Auto) Eos # (Auto) Baso # (Auto) Abs Immat Gran (auto) Absolute Neuts (auto) Absolute Nucleated RBC Nucleated RBC % (auto) Neutrophils % (Manual) Band Neutrophils % Lymphocytes % (Manual) Monocytes % (Manual) Abs Neuts (Manual) Lymphocytes # (Manual) Monocytes # (Manual) Smudge Cells Toxic Vacuolation Platelet Estimate Large Platelets Plt Morphology Comment RBC Morphology Polychromasia Microcytosis Macrocytosis Kylee Cells PT INR APTT Anion Gap 21 H Estim Creat Clear Calc 32.5 Estimated GFR 28 Random Glucose 177 H Calcium 9.0 Total Bilirubin 2.0 H AST 88 H ALT 55 H Alkaline Phosphatase 46 Troponin I High Sens 18.1 Total Protein 7.2 Albumin 3.0 L Lipase 169 H Urine Color Urine Appearance Urine pH Ur Specific [place] Urine Protein Urine Glucose (UA) Urine Ketones Urine Blood Urine Nitrite Ur Leukocyte Esterase Urine Osmolality Ur Random Sodium Ethyl Alcohol < 10 COVID-19 (LINDA) COVID-19 Jumptap 08/09/21 08/09/21 08/09/21 08:22 08:22 08:22 MCV MCH MCHC RDW Plt Count MPV Immature Gran % (Auto) Neut % (Auto) Lymph % (Auto) Cedar % (Auto) Eos % (Auto) Baso % (Auto) Lymph # (Auto) Cedar # (Auto) Eos # (Auto) Baso # (Auto) Abs Immat Gran (auto) Absolute Neuts (auto) Absolute Nucleated RBC Nucleated RBC % (auto) Neutrophils % (Manual) Band Neutrophils % Lymphocytes % (Manual) Monocytes % (Manual) Abs Neuts (Manual) Lymphocytes # (Manual) Monocytes # (Manual) Smudge Cells Toxic Vacuolation Platelet Estimate Large Platelets Plt Morphology Comment RBC Morphology Polychromasia Microcytosis Macrocytosis Kylee Cells PT INR APTT Anion Gap Estim Creat Clear Calc Estimated GFR Random Glucose Calcium Total Bilirubin AST ALT Alkaline Phosphatase Troponin I High Sens Total Protein Albumin Lipase Urine Color YELLOW Urine Appearance CLEAR Urine pH 5.5 Ur Specific [place] 1.025 Urine Protein TRACE Urine Glucose (UA) NEG Urine Ketones NEG Urine Blood NEG Urine Nitrite NEG Ur Leukocyte Esterase NEG Urine Osmolality 422 Ur Random Sodium < 20.0 Ethyl Alcohol COVID-19 (LINDA) COVID-19 [facility] Com Imaging Radiologist's Impressions: Impressions Cervical Spine CT 08/09/21 04:36 IMPRESSION: No acute intracranial pathology. No cervical spine fracture or malalignment. Head CT 08/09/21 04:36 IMPRESSION: No acute intracranial pathology. No cervical spine fracture or malalignment. Chest X-Ray 08/09/21 04:48 IMPRESSION: Unremarkable examination. Assessment and Plan (1) Acute hyponatremia: Status: Acute (2) Acute kidney injury: Status: Acute (3) Chronic kidney disease: Qualifiers: Chronic kidney disease stage: stage 3 (moderate) Status: Acute (4) Atrial fibrillation, new onset: Status: Acute (5) Essential hypertension: Status: Acute Plan 66-year-old gentleman with past medical history of diabetes mellitus on insulin, hypertension, dyslipidemia, obstructive sleep apnea not on CPAP, with no prior history of coronary artery disease or arrhythmia presented to [facility] due to bilateral shoulder and upper back pain of 1 week duration, patient had a fall 1 week ago and again this morning he has slipped and fell down without loss of consciousness, in the ER patient noted to be in atrial fibrillation with RVR are, laboratory data showed hyponatremia acute on chronic kidney disease and mildly elevated troponin levels. New onset atrial fibrillation patient had a recent visit to cardiology is on May 2021 when noted to be in normal sinus rhythm, had prior stress testing which was unremarkable, echo from June 12 showed normal EF and no wall motion abnormality patient treated with 1 dose of IV Cardizem 10 mg ventricular rate improved, patient remains in AFib with heart rate in 80s question related to alcohol abuse, TSH 0.62 chads vasc score 3 , hold anticoagulation due to recurrent fall obtain PT eval cardiology consult acute on chronic kidney disease stage 3 with history of significant proteinurea creatinine 2.35, last creatinine from July 2018 was 1.27 likely pre renal on 3 anti diuretics including Lasix, Aldactone and hydrochlorothiazide will hold all diuretics , hold losartan IV fluids follow renal function, avoid nephrotoxins and obtain nephro consultation metabolic acidosis with anion gap likely due to renal disease treat with IV fluids/ add soda bicarb/ hold diuretics/ follow labs hyponatremia likely hypovolemic hyponatremia will give sodium chloride and repeat labs, check serum osmolality hypertension soft blood pressure on multiple antihypertensive including Lasix Aldactone hydrochlorothiazide losartan and metoprolol 200mg at bedtime will hold all antihypertensive resume metoprolol low dose recurrent fall likely due to unsteady gait, drinks 8 beer over the weekend obtain PT eval diabetes mellitus hold metformin resume insulin takes Toujeo 135 units daily, place on diabetic diet and insulin sliding scale elevated LFTs / lipase likely due to alcohol use patient currently has no abdominal pain, no nausea, vomiting, strongly recommend to abstain from alcohol, repeat labs, care team eval chronic thrombocytopenia likely due to alcohol use follow cbc DVT prophylaxis compression boots due to low platelet and anemia follow CBC if platelet remains stable will consider anticoagulation code status full code patient needs 2 night inpatient stay due to new onset atrial fibrillation with RVR acute on chronic kidney disease with metabolic acidosis will require further cardiac and renal intervention and treatment. Quality Stroke Does the patient have a stroke diagnosis?: No VTE Prior VTE?: No VTE Risk Level:: Medical - moderate - high VTE Device Contraindication: Treatment Not Indicated VTE Drug Contraindication: N/A - Med Ordered
[2021-08-09] MEDS: 0.9 % Sodium Chloride 1,000 ML 100 ML IVCONT ×2 (11:09→18:09)
--- NOTE | 2021-08-09 11:24 | MHC.CM.PN ---
Met with pt to discuss d/c planning needs: Pt resides with significant other and is independent with care needs. He does not have services or use equipment and states he has transportation and no barriers to care. His PCP is Dr. Caballero (?) from [facility]. He has been COVID vaxed x 2 - unknown brand: HCP offered but declined. IMM in chart. Pt has working cell at bedside and states he will call family for transportation home. CM to follow for changes in D/C plan.
[2021-08-09 11:27] LABS: Troponin-I High Sensitivity 17.9 ng/L (<3.5-35.0)
[2021-08-09 11:31] LABS: Anion Gap 21 (12-20); Blood Urea Nitrogen 72 mg/dL (9-16); Calcium 8.6 mg/dL (8.4-10.2); Carbon Dioxide 18 mmol/L (22-29); Chloride 95 mmol/L (96-108); Creatinine Clr Calc Pharmacy 30.6; Estimated Glomerular Filt Rate 26; Glucose Random 149 mg/dL (60-115); Potassium 4.9 mmol/L (3.3-5.1); Sodium 129 mmol/L (135-145)
[2021-08-09 11:33] LABS: Osmolality, Serum 303 mosm/kg (281-305)
[2021-08-09 11:49] LABS: TSH reflex Free T4 0.62 uIU/mL (0.32-4.0)
[2021-08-09 14:06] VITALS: BP 104/55; PULSE 75; RESP 20; TEMP 36.8; O2SAT 91
[2021-08-09 14:13] LABS: Glucose, Whole Blood 141 mg/dL (60-115)
--- NOTE | 2021-08-09 15:16 | CONS_ITS ---
DATE OF SERVICE: REASON FOR CONSULTATION: I was called to see this patient to assist in management of acute kidney injury and electrolyte imbalance. HISTORY OF PRESENT ILLNESS: To summarize, Levi is a 66-year-old man with history of diabetes mellitus, hypertension, hyperlipidemia, chronic kidney disease stage 3. Baseline creatinine is around less than 2 mg/dL. He comes in because of upper back pain, shoulder pain, and on admission was found to have hyponatremia with mild hyperkalemia along with acute kidney injury, creatinine of 2.3 and hence this consultation. At the time of admission, he was being treated with multiple medications including hydrochlorothiazide, losartan, furosemide, spironolactone amongst other things. At the time of admission, he was hypotensive. This medication has been placed on hold. ONGOING MEDICAL PROBLEMS: Include history of stage 3 chronic kidney disease, obesity, obstructive sleep apnea, tubular adenoma, vitamin D deficiency, atrial dysfunction, history of diabetes mellitus, hypertension, hyperlipidemia. PAST SURGICAL HISTORY: Include cataract surgery, cholecystectomy, history of colonoscopy with polypectomy. FAMILY HISTORY: Noncontributory to this admission. SOCIAL HISTORY: Lives with significant other. No history of smoking or alcohol abuse. ALLERGIES: HE IS ALLERGIC TO SOME FOODS, BUT NO DRUG ALLERGIES NOTED. MEDICATIONS: All the home medications were reviewed. REVIEW OF SYSTEMS: Positive for back pain and generalized body pain. No fever. No shortness of breath. No abdominal pain, diarrhea, constipation. No polyuria, polydipsia. No fever. No weight loss. PHYSICAL EXAMINATION: GENERAL: Levi is a middle-aged man, obese, comfortable, lying flat in bed, not in distress. NECK: Supple. No JVD. Mucosa is dry. LUNGS: Air entry equal. No rales. HEART: S1, S2 heard. No gallop. No rub. ABDOMEN: Obese, soft, nontender. EXTREMITIES: No edema. No rash. No clubbing. VITAL SIGNS: Blood pressure 105/57, pulse 81, temperature was normal. LABORATORY DATA: Sodium 129, CO2 of 18, BUN 17, creatinine 2.5. AST, ALT marginally elevated. Urine sodium less than 20. Urine osmolality 422. Hemoglobin 12.7, platelets 63,000. PROBLEMS: 1. Acute kidney injury superimposed on chronic kidney disease. 2. Hyponatremia. 3. Hyperkalemia. 4. Mild anemia with thrombocytopenia. 5. Low total CO2. Metabolic acidosis versus respiratory alkalosis. Elevated LFTs. 6. Hyponatremia is most likely due to hypovolemia and continued use of hydrochlorothiazide which can decrease free water clearance. He does have hyperkalemia, which could be due to the combination of acute kidney injury and the continued use of spironolactone. The acute kidney injury is mostly due to hypoperfusion; however, with thrombocytopenia, he needs further workup. RECOMMENDATION: Obtain a spot urine for protein creatinine ratio. Hold spironolactone, Lasix, and hydrochlorothiazide. IV hydration with normal saline at 75 cc/hour, Lokelma 10 g p.o. x1 dose. Hold antihypertensive medications. Avoid hypotension. Continue to avoid nephrotoxic agents. Watch intake and output. Further workup will be based on the outcome of the baseline investigations. We will follow him along with the team. Augustus Medina MD BPA/MODL / [id number]
[2021-08-09 16:00] VITALS: BP 82/55; PULSE 69; RESP 19; TEMP 37.1; O2SAT 98
[2021-08-09 16:05] LABS: Glucose, Whole Blood 145 mg/dL (60-115)
[2021-08-09] MEDS: Acetaminophen 325 MG TABLET 650 MG PO (16:26)
[2021-08-09] MEDS: 0.9 % Sodium Chloride Flush 3 ML SYRINGE IVFLUSH ×2 (16:34→20:55)
--- NOTE | 2021-08-09 17:59 | PC.NURSE ---
Transferred from ED to C. Patient resting in room. Family and patient oriented to room and surrounding. Bed in low position, call mtz within reach.
[2021-08-09 20:50] LABS: Glucose, Whole Blood 179 mg/dL (60-115)
[2021-08-09] MEDS: Aspirin Enteric Coated 81 MG TABLET.DR PO (20:54)
[2021-08-09] MEDS: Insulin Lispro 100 UNIT/ML 3 ML VIAL SUBCUT (20:54)
[2021-08-09] MEDS: Atorvastatin Calcium 40 MG TABLET PO (20:54)
[2021-08-09] MEDS: diphenhydrAMINE HCL 50 MG/ML VIAL 25 MG IVPUSH (23:35)
[2021-08-10] VITALS (9 sets, daily range): BP systolic 70–135; BP diastolic 40–62; PULSE 57–140; RESP 16–22; TEMP 36.6–37.2; O2SAT 89–95
[2021-08-10] MEDS: Omeprazole 20 MG CAPSULE.DR PO (05:41)
[2021-08-10] MEDS: 0.9 % Sodium Chloride 1,000 ML 100 ML IVCONT ×2 (05:43→14:12)
[2021-08-10 07:02] LABS: Glucose, Whole Blood 173 mg/dL (60-115)
[2021-08-10 07:31] LABS: Alanine Aminotransferase 60 U/L (0-40); Albumin Level 2.7 g/dL (3.5-5.0); Alkaline Phosphatase 62 U/L (39-117); Anion Gap 19 (12-20); Aspartate Amino Transferase 107 U/L (5-37); Bilirubin Direct 1.2 mg/dL (0.0-0.5); Bilirubin Total 1.9 mg/dL (0.0-1.0); Blood Urea Nitrogen 86 mg/dL (9-16); Calcium 8.3 mg/dL (8.4-10.2); Carbon Dioxide 19 mmol/L (22-29); Chloride 96 mmol/L (96-108); Creatinine Clr Calc Pharmacy 37.9; Estimated Glomerular Filt Rate 33; Glucose Random 168 mg/dL (60-115); Lipase 79 U/L (8-78); Potassium 4.3 mmol/L (3.3-5.1); Sodium 130 mmol/L (135-145); Total Protein 6.6 g/dL (6.5-8.0)
[2021-08-10] MEDS: Insulin Glargine,Hum.rec.anlog 100 UNIT/ML 10 ML VIAL 108 UNIT SUBCUT (08:24)
[2021-08-10] MEDS: Acetaminophen 325 MG TABLET 650 MG PO ×2 (08:25→19:46)
[2021-08-10] MEDS: Metoprolol Succinate ER 100 MG TAB.ER.24H PO (08:26)
[2021-08-10] MEDS: 0.9 % Sodium Chloride Flush 3 ML SYRINGE IVFLUSH ×3 (08:30→19:48)
[2021-08-10 08:48] LABS: Magnesium 1.8 mg/dL (1.6-2.6)
[2021-08-10] MEDS: Loperamide HCl 2 MG CAPSULE PO ×2 (11:14→19:47)
[2021-08-10 11:24] LABS: Glucose, Whole Blood 189 mg/dL (60-115)
[2021-08-10] MEDS: Insulin Lispro 100 UNIT/ML 3 ML VIAL SUBCUT ×2 (11:26→21:23)
--- NOTE | 2021-08-10 11:36 | P.PNIM_ITS ---
Subjective Subjective Date of Service: 08/10/21 Interval History: watery brown stool, no recent AB X denies palpitations or chest pain drinks up to 5 beers/d but only on weekends, denies daily use still in AF 80s->130s lost IV access Physical Exam Vital Signs: Vital Signs: Last Vital Signs Temp 98.1 F 08/10/21 08:00 Pulse 140 H 08/10/21 08:00 Resp 22 H 08/10/21 08:00 BP 135/59 L 08/10/21 08:00 Pulse Ox 95 08/10/21 08:00 O2 Del Method 08/10/21 08:00 BMI result Body Mass Index 29.7 Gen: in no acute distress HEENT: sclera anicteric, moist mucus membranes Neck: supple Lungs: clear to auscultation bilaterally Heart: rapid, irregularly irregular,, no murmurs Abd: soft, non-tender, non-distended Ext: no edema Skin: warm/well-perfused Neuro: alert and oriented x3, no focal findings Psych: appropriate affect Objective Data Active Medications Acetaminophen (Acetaminophen 325 Mg Tablet) 650 mg PO Q6H PRN PRN Reason: Pain, Mild (Pain Scale 1-3) Last Admin: 08/10/21 08:25 Dose: 650 mg Documented By: BILLIE Aspirin (Aspirin Enteric Coated 81 Mg Tablet.) 81 mg PO BEDTIME [facility] Last Admin: 08/09/21 20:54 Dose: 81 mg Documented By: MARLENE Atorvastatin Calcium (Atorvastatin Calcium 40 Mg Tablet) 40 mg PO BEDTIME [facility] Last Admin: 08/09/21 20:54 Dose: 40 mg Documented By: MARLENE Dextrose (Dextrose 50 % 25 Gm/50 Ml Syringe) 25 gm IVPUSH Q15M PRN; Protocol PRN Reason: per Hypoglycemia Standing Ord. Glucose (Glucose Gel 15 Gm Gel..Gram.) 15 gm PO Q15M PRN; Protocol PRN Reason: per Hypoglycemia Standing Ord. Sodium Chloride (Ns) 1,000 mls @ 75 mls/hr IVCONT .[id number] [facility] Last Admin: 08/10/21 05:43 Dose: 100 mls/hr Documented By: MARLENE Insulin Glargine (Insulin Glargine,Hum.Rec.Anlog 100 Unit/Ml 10 Ml Vial) 108 unit SUBCUT DAILY [facility] Last Admin: 08/10/21 08:24 Dose: 108 unit Documented By: BILLIE Comments: left upper arm Insulin Human Lispro (Insulin Lispro 100 Unit/Ml 3 Ml Vial) 0 unit SUBCUT QIDAC HS [facility]; Protocol Last Admin: 08/10/21 11:26 Dose: 2 unit Documented By: BILLIE Loperamide HCl (Loperamide Hcl 2 Mg Capsule) 2 mg PO Q4H PRN PRN Reason: Diarrhea Last Admin: 08/10/21 11:14 Dose: 2 mg Documented By: BILLIE Metoprolol Succinate (Metoprolol Succinate Er 100 Mg Tab.Er.24h) 100 mg PO DAILY [facility]; Protocol Last Admin: 08/10/21 08:26 Dose: 100 mg Documented By: BILLIE Metoprolol Succinate (Metoprolol Succinate Er 50 Mg Tab.Er.24h) 50 mg PO DAILY [facility]; Protocol Omeprazole (Omeprazole 20 Mg Capsule.Dr) 20 mg PO DAILY@0630 [facility] Last Admin: 08/10/21 05:41 Dose: 20 mg Documented By: MARLENE Ondansetron HCl (Ondansetron Hcl 4 Mg/2 Ml Vial) 4 mg IVPUSH Q8H PRN PRN Reason: Nausea and Vomiting Sodium Chloride (0.9 % Sodium Chloride Flush 3 Ml Syringe) 3 ml IVFLUSH QSHIFT [facility] Last Admin: 08/10/21 08:30 Dose: 3 ml Documented By: BILLIE Labs CBC & Chem 7: 08/09/21 04:31 08/10/21 05:48 Labs: Laboratory Results - last 24 hr 08/09/21 08/09/21 08/09/21 10:52 14:09 16:00 Anion Gap Estim Creat Clear Calc Estimated GFR POC Glucose 141 H 145 H Random Glucose Calcium Magnesium Total Bilirubin Direct Bilirubin AST ALT Alkaline Phosphatase Total Protein Albumin Lipase TSH 0.62 08/09/21 08/10/21 08/10/21 20:47 05:48 06:51 Anion Gap 19 Estim Creat Clear Calc 37.9 Estimated GFR 33 POC Glucose 179 H 173 H Random Glucose 168 H Calcium 8.3 L Magnesium 1.8 Total Bilirubin 1.9 H Direct Bilirubin 1.2 H AST 107 H ALT 60 H Alkaline Phosphatase 62 D Total Protein 6.6 Albumin 2.7 L Lipase 79 H TSH 08/10/21 11:04 Anion Gap Estim Creat Clear Calc Estimated GFR POC Glucose 189 H Random Glucose Calcium Magnesium Total Bilirubin Direct Bilirubin AST ALT Alkaline Phosphatase Total Protein Albumin Lipase TSH Assessment and Plan (1) Atrial fibrillation, new onset: Status: Acute Plan hospital d#2 66yo M with insulin-dep DM2, HTN, HLD, ASHLY not on CPAP presented to ED with back pain after falling 1 wk ago without LOC admitted for new-onset AF/RVR, hypoNa, EMIGDIO/CKD3 # new-onset AF/RVR - treated with 1 dose of diltiazem IV- start gtt once has IV - [id number] 3, needs AC but poor candidate given recurrent falls; PT eval pending - Cardiology consult pending - update TTE, last in May 2020 showed normal LVEF # EMIGDIO/CKD3 with hx of proteinuria - SCr improving. continue to hold furosemide, spironolactone + HCTZ. continue to hold losartan. continue IV fluids. Nephrology following # anion gap metabolic acidosis - due to renal insufficiency; improving with renal function # hypoNa - Na improving with IV fluids # EtOH hepatitis - mild, no steroids/pentoxyfilline indicated; monitor LFTs # thrombocytopenia - likely due to EtOH; monitor CBC # diarrhea - check Cdiff PCR; if negative, give loperamide # HLD - statin # HTN - hold all antihypertensives except for metoprolol succinate # DM2 - hold MTF, give basal/bolus insulin [on Toujeo 135 units daily at home] # excess EtOH intake - CARE Team + Addiction Med consults, monitor for withdrawal # recurrent falls/unsteady gait - PT consult # VTE ppx: SCDs, no heparin due to thrombocytopenia In my clinical judgment, the patient requires continued hospitalization for the following reasons: IV rate control, IV fluids Quality Stroke Does the patient have a stroke diagnosis?: No VTE Prior VTE?: No VTE Risk Level:: Medical - moderate - high VTE Device Contraindication: Treatment Not Indicated VTE Drug Contraindication: N/A - Med Ordered
--- NOTE | 2021-08-10 11:50 | P.CONCA_ITS ---
History of Present Illness History of Present Illness Date of Service: 08/10/21 Requesting physician: Lon Watkins Chief complaint: new onset atrial fibrillation moni Narrative: 66-year-old gentleman with background history of diabetes, chronic kidney disease and hypertension was presenting for acute kidney injury and new onset atrial fibrillation. He was seen in the ER for upper back and shoulder pain. He also slipped and fell and hit his head without any significant injury. He came to the emergency department and was noted to have acute renal failure and hyponatremia. He has seen Nephrology and has been started on IV hydration. He was also noted to have AFib. He denies any palpitations. He is denying any chest discomfort shortness of breath. He drinks 6 beers on weekend but is not a daily drinker. He is on metoprolol 100 mg and 50 mg. He also is on Cardizem drip currently. He is lying flat in bed and is denying any symptoms currently. Is not getting IV fluids because of no IV access. [facility] Past Medical History Medical History Allergic rhinitis Erectile dysfunction Obstructive sleep apnea Retinopathy Tubular adenoma Vitamin D deficiency Family History Family History Father Myocardial infarction CVD (cardiovascular disease) Mother Diabetes Surgical History Surgical History History of surgical procedure on eye proper using laser Hx of cataract surgery Hx of cholecystectomy Hx of colonoscopy with polypectomy Social History Social History Household Members: Children Housing: Apartment Patient Tobacco Use Status: Never used Tobacco Use of substances other than those prescribed or required for medical reasons: No Currently Displaying Signs/Symptoms of Drug Intoxication Withdrawal: No Have you been hit, kicked, punched, or otherwise hurt by someone within the past year? 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 Meds Allergies Allergy/AdvReac Type Severity Reaction Status Date / Time FRESH FRUIT Allergy Unknown ITCHY EARS Uncoded 06/03/21 10:48 THROAT Sesonal allergies Allergy Unknown itchiness Uncoded 06/03/21 10:48 some fresh fruit Allergy Unknown itchiness Uncoded 06/03/21 10:48 Active Medications: Current Medications Acetaminophen (Acetaminophen 325 Mg Tablet) 650 mg PO Q6H PRN PRN Reason: Pain, Mild (Pain Scale 1-3) Last Admin: 08/10/21 08:25 Dose: 650 mg Aspirin (Aspirin Enteric Coated 81 Mg Tablet.Dr) 81 mg PO BEDTIME [facility] Last Admin: 08/09/21 20:54 Dose: 81 mg Atorvastatin Calcium (Atorvastatin Calcium 40 Mg Tablet) 40 mg PO BEDTIME [facility] Last Admin: 08/09/21 20:54 Dose: 40 mg Dextrose (Dextrose 50 % 25 Gm/50 Ml Syringe) 25 gm IVPUSH Q15M PRN; Protocol PRN Reason: per Hypoglycemia Standing Ord. Glucose (Glucose Gel 15 Gm Gel..Gram.) 15 gm PO Q15M PRN; Protocol PRN Reason: per Hypoglycemia Standing Ord. Sodium Chloride (Ns) 1,000 mls @ 75 mls/hr IVCONT .[id number] [facility] Last Admin: 08/10/21 05:43 Dose: 100 mls/hr Diltiazem HCl 125 mg/ Sodium (Chloride) 125 mls @ 0 mls/hr IVCONT .Q0M [facility]; Protocol Insulin Glargine (Insulin Glargine,Hum.Rec.Anlog 100 Unit/Ml 10 Ml Vial) 108 unit SUBCUT DAILY [facility] Last Admin: 08/10/21 08:24 Dose: 108 unit Insulin Human Lispro (Insulin Lispro 100 Unit/Ml 3 Ml Vial) 0 unit SUBCUT QIDACHS [facility]; Protocol Last Admin: 08/10/21 11:26 Dose: 2 unit Lidocaine (Lidocaine 4 % Patch Adh..Patch) 1 patch TRANSDERMA DAILY [facility]; Protocol Loperamide HCl (Loperamide Hcl 2 Mg Capsule) 2 mg PO Q4H PRN PRN Reason: Diarrhea Last Admin: 08/10/21 11:14 Dose: 2 mg Metoprolol Succinate (Metoprolol Succinate Er 100 Mg Tab.Er.24h) 100 mg PO DAILY [facility]; Protocol Last Admin: 08/10/21 08:26 Dose: 100 mg Metoprolol Succinate (Metoprolol Succinate Er 50 Mg Tab.Er.24h) 50 mg PO DAILY [facility]; Protocol Omeprazole (Omeprazole 20 Mg Capsule.Dr) 20 mg PO DAILY@0630 [facility] Last Admin: 08/10/21 05:41 Dose: 20 mg Ondansetron HCl (Ondansetron Hcl 4 Mg/2 Ml Vial) 4 mg IVPUSH Q8H PRN PRN Reason: Nausea and Vomiting Sodium Chloride (0.9 % Sodium Chloride Flush 3 Ml Syringe) 3 ml IVFLUSH QSHIFT [facility] Last Admin: 08/10/21 08:30 Dose: 3 ml Home Medications Medication Instructions Recorded Confirmed Last Taken Type amlodipine 5 mg tablet 5 mg PO DAILY 02/01/20 08/09/21 08/08/21 History aspirin 81 mg tablet,delayed 81 mg PO BEDTIME 02/01/20 08/09/21 08/08/21 History release atorvastatin 40 mg tablet 40 mg PO DAILY 02/01/20 08/09/21 08/08/21 History blood sugar diagnostic #10 ea 02/01/20 06/03/21 Unknown History furosemide 20 mg tablet 20 mg PO DAILY 02/01/20 08/09/21 08/08/21 History hydrochlorothiazide 25 mg tablet 25 mg PO DAILY 02/01/20 08/09/21 08/08/21 His tory lancets 33 gauge #100 ea 02/01/20 06/20/21 Unknown History losartan 100 mg tablet 100 mg PO QAM 02/01/20 08/09/21 08/08/21 History metoprolol succinate 200 mg 200 mg PO BEDTIME 02/01/20 08/09/21 08/08/21 History tablet,extended release 24 hr omeprazole 20 mg capsule,delayed 20 mg PO QAM 02/01/20 08/09/21 Unknown History release spironolactone 25 mg tablet 25 mg PO DAILY 04/26/20 08/09/21 08/08/21 History sildenafil 100 mg tablet 100 mg PO DAILY PRN Sexual Activity 05/16/20 08/09/21 Unknown History calcium carbonate 600 mg-vitamin 1 tab PO DAILY 06/20/21 08/09/21 08/08/21 History D3 10 mcg (400 unit) tablet atorvastatin 40 mg tablet 1 tab PO BEDTIME 08/09/21 08/09/21 08/08/21 History dulaglutide 0.75 mg/0.5 mL 0.75 mg subcut WE 08/09/21 08/09/21 08/06/21 History subcutaneous pen injector (Trulicity) insulin aspart U-100 100 unit/mL 35 unit subcut TIDAC 08/09/21 08/09/21 08/08/21 History (3 mL) subcutaneous pen (Novolog Flexpen U-100 Insulin aspart) insulin glargine U-300 conc 300 135 unit subcut DAILY 08/09/21 08/09/21 08/08/21 History unit/mL (3 mL) subcutaneous pen (Toujeo Max U-300 SoloStar) Physical Exam Vital Signs: Vital Signs: Last Vital Signs Temp 98.1 F 08/10/21 08:00 Pulse 140 H 08/10/21 08:00 Resp 22 H 08/10/21 08:00 BP 135/59 L 08/10/21 08:00 Pulse Ox 95 08/10/21 08:00 O2 Del Method 08/10/21 08:00 BMI result Body Mass Index 29.7 GENERAL APPEARANCE: in no acute distress, pleasant. NECK: no carotid bruit, no jugular venous distention. SKIN: no suspicious lesions, warm and dry. HEART: no murmurs, irregularly irregular rhythm. Tachycardic. LUNGS: clear to auscultation bilaterally. ABDOMEN: soft, nontender. EXTREMITIES: no edema. PERIPHERAL PULSES: equal. NEUROLOGIC: No gross deficits, AAO X 3 Objective Labs and Meds Result diagrams: 08/09/21 04:31 08/10/21 05:48 Lab results: Laboratory Results - last 24 hr 08/09/21 08/09/21 08/09/21 14:09 16:00 20:47 Sodium Potassium Chloride Carbon Dioxide Anion Gap BUN Creatinine Estim Creat Clear Calc Estimated GFR POC Glucose 141 H 145 H 179 H Random Glucose Calcium Magnesium Total Bilirubin Direct Bilirubin AST ALT Alkaline Phosphatase Total Protein Albumin Lipase 08/10/21 08/10/21 08/10/21 05:48 06:51 11:04 Sodium 130 L Potassium 4.3 Chloride 96 Carbon Dioxide 19 L Anion Gap 19 BUN 86 H Creatinine 2.02 H Estim Creat Clear Calc 37.9 Estimated GFR 33 POC Glucose 173 H 189 H Random Glucose 168 H Calcium 8.3 L Magnesium 1.8 Total Bilirubin 1.9 H Direct Bilirubin 1.2 H AST 107 H ALT 60 H Alkaline Phosphatase 62 D Total Protein 6.6 Albumin 2.7 L Lipase 79 H Assessment and Plan (1) Acute hyponatremia: Status: Acute (2) Acute kidney injury: Status: Acute (3) Atrial fibrillation, new onset: Status: Acute Plan 66-year-old gentleman with CKD, hypertension, diabetes and hypertension was presenting for kidney injury and new onset atrial fibrillation. Hypernatremia and acute kidney injury are due to medications. He will be getting IV fluids to improve that. From AFib point of view he is difficult to control currently. There is sub question about alcohol use and how much he drinks. In any case he is on beta rayna and Cardizem currently. If diltiazem is maxed out then I would add digoxin 250 mcg IV x1 to see if that helps his rate control. I think he needs fluids to help control his heart rate also in addition to improve his kidney function. Agree with checking echocardiogram tomorrow. He has high risk for stroke given multiple risk factors. I think he should be a nticoagulated. For now he can stay on Lovenox but as his creatinine improves or plateaus then we can start him on Eliquis or Xarelto. Thank you for allowing me to participate in the care of your patient. Please feel free to contact me if you have any questions. Procedures Date of Service Date of Service: 08/10/21
--- NOTE | 2021-08-10 12:22 | P.PNNP_ITS ---
Subjective Subjective Date of Service: 08/10/21 Interval history: Events noted Physical Exam Vital Signs: Vital Signs: Last Vital Signs Temp 98.1 F 08/10/21 08:00 Pulse 140 H 08/10/21 08:00 Resp 22 H 08/10/21 08:00 BP 135/59 L 08/10/21 08:00 Pulse Ox 95 08/10/21 08:00 O2 Del Method 08/10/21 08:00 BMI result Body Mass Index 29.7 Const: General: cooperative Neck: Neck: Yes supple Resp: Effort & Inspection: normal respiratory effort Auscultation: clear to auscultation bilaterally Cardio: Rate: regular rate and tachycardic Heart sounds: no murmurs GI: Palpation (GI): Soft to palpation and nontender Skin: General skin exam: no rashes or lesions noted Neuro: Cognition (Neuro): normal cognition Motor exam (neuro): 5/[address] rength present throughout Objective Data Labs CBC & Chem 7: 08/09/21 04:31 08/10/21 05:48 Labs: Laboratory Results - last 24 hr 08/09/21 08/09/21 08/09/21 14:09 16:00 20:47 Sodium Potassium Chloride Carbon Dioxide Anion Gap BUN Creatinine Estim Creat Clear Calc Estimated GFR POC Glucose 141 H 145 H 179 H Random Glucose Calcium Magnesium Total Bilirubin Direct Bilirubin AST ALT Alkaline Phosphatase Total Protein Albumin Lipase 08/10/21 08/10/21 08/10/21 05:48 06:51 11:04 Sodium 130 L Potassium 4.3 Chloride 96 Carbon Dioxide 19 L Anion Gap 19 BUN 86 H Creatinine 2.02 H Estim Creat Clear Calc 37.9 Estimated GFR 33 POC Glucose 173 H 189 H Random Glucose 168 H Calcium 8.3 L Magnesium 1.8 Total Bilirubin 1.9 H Direct Bilirubin 1.2 H AST 107 H ALT 60 H Alkaline Phosphatase 62 D Total Protein 6.6 Albumin 2.7 L Lipase 79 H Procedures Date of Service Date of Service: 08/10/21 Assessment & Plan Assessment and plan (1) Acute hyponatremia: Status: Acute (2) Acute kidney injury: Status: Acute Plan 1. Acute kidney injury superimposed on chronic kidney disease. 2. Hyponatremia. 3. Hyperkalemia. 4. Mild anemia with thrombocytopenia. 5. Low total CO2.? Metabolic acidosis versus respiratory alkalosis.? Elevated LFTs. 6. Hyponatremia is most likely due to hypovolemia and continued use of hydrochlorothiazide which can decrease free water clearance.? He does have hyperkalemia, which could be due to the combination of acute kidney injury and the continued use of spironolactone.? The acute kidney injury is mostly due to hypoperfusion; Low urine sodium supports this. thrombocytopenia, - No evidence of GN ? ? Hold spironolactone, Lasix, and hydrochlorothiazide.? IV hydration with normal saline at 75 cc/hour, Hold antihypertensive medications.? Avoid hypotension.? Continue to avoid nephrotoxic agents.? Watch intake and output. Restrict PO water intake and watch Na Time Spent With Patient Time: Total time spent is greater than 50% in coordination of care (as documented) at patient's floor/unit and/or counseling patient: Progress Note: Quality Stroke Does the patient have a stroke diagnosis?: No
--- NOTE | 2021-08-10 13:43 | MHC.RECOVSUP ---
Recovery Support note: Patient is a 66 year old Indonesian speaking male who presented to [facility] [place] ED due to a fall at home and chronic pain. Patient reported drinking up to 5 beers a day to hospitalist. This automatic typewriter inspector met with patient to discuss his alcohol use and recovery supports. Patient reports he is a social drinker and state he only drinks on weekends with friends. Discussed with patient that the negative impact alcohol has on health can worsen as someone ages and that his alcohol use may be contributing to his medical problems. Patient acknowledged. Patient reports he is not addicted and that he will stop drinking. Patient does not anticipate any issues with maintaining sobriety. Discussed recovery supports including meetings, therapy and medications and patient declines resources, stating he can manage on his own. Discussed relapse prevention and being around others while they are drinking. Patient continues to report he will not have any issues abstaining from alcohol. Discussed recovery coaching with patient. Patient is agreeable to meeting with a organ recovery coordinator while in the hospital to discuss recovery resources further. This automatic typewriter inspector will facilitate referral to organ recovery coordinator. Discussed case with Heather Bess NP.
[2021-08-10] MEDS: dilTIAZem HCL 125 MG in 0.9 % Sodium Chloride 100 ML 10 MG IVCONT (14:18)
[2021-08-10] MEDS: Lidocaine 4 % Patch ADH..PATCH 1 PATCH TRANSDERMA (14:33)
[2021-08-10] MEDS: Metoprolol Succinate ER 50 MG TAB.ER.24H PO (14:36)
[2021-08-10 15:50] LABS: Glucose, Whole Blood 172 mg/dL (60-115)
[2021-08-10 16:47] LABS: CDiff Gene PCR NEGATIVE (Negative)
[2021-08-10] MEDS: Atorvastatin Calcium 40 MG TABLET PO (19:47)
[2021-08-10] MEDS: Aspirin Enteric Coated 81 MG TABLET.DR PO (19:53)
[2021-08-10] MEDS: Apixaban 5 MG TABLET PO (19:53)
[2021-08-10 20:27] LABS: Glucose, Whole Blood 167 mg/dL (60-115)
[2021-08-10] MEDS: 0.9 % Sodium Chloride 1,000 ML 999 ML IV (23:33)
[2021-08-10] MEDS: 0.9 % Sodium Chloride 1,000 ML 75 ML IVCONT (23:37)
[2021-08-11] VITALS (8 sets, daily range): BP systolic 94–146; BP diastolic 50–67; PULSE 68–83; RESP 18–23; TEMP 36.3–37; O2SAT 90–92
--- NOTE | 2021-08-11 | ECG_ITS ---
Test Reason : cp Blood Pressure : / mmHG Vent. Rate : 069 BPM Atrial Rate : 000 BPM P-R Int : 000 ms QRS Dur : 084 ms QT Int : 410 ms P-R-T Axes : 000 041 058 degrees QTc Int : 439 ms Atrial fibrillation Abnormal ECG No previous ECGs available Referred By: Lon Watkins Electronically Signed By:MALCOM ESQUIVEL MD
--- NOTE | 2021-08-11 00:01 | PM.EVENT ---
Event Note Date of Service: 08/11/21 Event Note: pt noted by nurse at bedside , to have difficulty swallowing and possibly choking on drinking. will consult speech
[2021-08-11] MEDS: Loperamide HCl 2 MG CAPSULE PO ×2 (00:03→09:21)
[2021-08-11 00:12] LABS: Hematocrit 35.4 % (42.0-52.0); Hemoglobin 12.1 g/dl (14.0-18.0); Mean Corpuscular HGB Conc 34.2 g/dl (31.0-36.0); Mean Corpuscular Volume 87.6 fL (80.0-98.0); Mean Platelet Volume 13.2 fL (9.4-12.4); NRBC Pct Auto 0.6 /100WBC (0.0-0.2); Red Blood Count 4.04 X10*6/uL (4.60-5.80); Red Cell Distribution Width 13.6 % (11.0-16.0)
[2021-08-11 00:20] LABS: PLT ABN DIST 1; Platelet Count 82 X10*3/uL (160-400); WBC ABN SCTR FOR CBC 1
[2021-08-11 00:21] LABS: White Blood Count 19.3 X10*3/uL (4.8-10.8)
[2021-08-11 00:36] LABS: Band Neutrophils Percent 9 % (3-5); Lymphocytes Absolute Manual 1.7 X10*3/uL (1.2-4.9); Lymphocytes Percent Manual 9 % (20-40); Monocytes Absolute Manual 2.3 X10*3/uL (0.1-1.2); Monocytes Percent Manual 12 % (2-11); Neutrophils Absolute Manual 15.2 X10*3/uL (2.0-8.3); Neutrophils Percent Manual 70 % (45-73); RBC Morphology NOTED
[2021-08-11 00:37] LABS: Toxic Granulation PRESENT; Toxic Vacuolation PRESENT
[2021-08-11 00:38] LABS: Burr Cells 1+ (0-2) /OIF; Polychromasia 1+ (0-2) /OIF
[2021-08-11 00:39] LABS: Macrocytosis 1+ (5-14) /OIF
[2021-08-11 00:40] LABS: Large Platelet PRESENT; Platelet Estimate DECREASED (NORMAL); Platelet Morphology Comment NOTED
[2021-08-11 01:12] LABS: Lactic Acid 5.4 mmol/L (0.5-2.0)
--- NOTE | 2021-08-11 01:19 | PM.EVENT ---
Event Note Date of Service: 08/11/21 Event Note: pt noted to be hypotensive, He is afebrile, no tachycardia or tachypnia. Labs obtained showed Lactic acid of 5.4 as well as an elevated WBC. Given hypotension and leukocytosis will treat for sepsis although source unknown. will obtain CXR, UA, blood cultures. will give sepsis fluid
[2021-08-11] MEDS: Morphine Sulfate 2 MG/ML CARTRIDGE IVPUSH (01:44)
[2021-08-11] MEDS: vancomycin HCL 1,250 MG in 0.9 % Sodium Chloride 250 ML 166.67 MG IV (02:14)
[2021-08-11 02:39] LABS: Troponin-I High Sensitivity 60.5 ng/L (<3.5-35.0)
[2021-08-11 03:02] LABS: Reflex Lactate? Lactic Acid Added
[2021-08-11] MEDS: cefEPime HCl 2 GM in 0.9 % Sodium Chloride 50 ML IV (03:43)
[2021-08-11 04:35] LABS: NRBC Pct Auto 0.5 /100WBC (0.0-0.2)
[2021-08-11 04:37] LABS: Hematocrit 32.8 % (42.0-52.0); Mean Corpuscular HGB Conc 33.5 g/dl (31.0-36.0); Mean Corpuscular Hemoglobin 29.8 pg (27.0-33.0); Mean Corpuscular Volume 88.9 fL (80.0-98.0); Mean Platelet Volume 13.5 fL (9.4-12.4); Red Blood Count 3.69 X10*6/uL (4.60-5.80); Red Cell Distribution Width 13.9 % (11.0-16.0); White Blood Count 16.8 X10*3/uL (4.8-10.8)
[2021-08-11 04:38] LABS: PLT ABN DIST 1; Platelet Count 82 X10*3/uL (160-400)
[2021-08-11 04:50] LABS: Lactic Acid 2.9 mmol/L (0.5-2.0)
[2021-08-11 05:04] LABS: Alanine Aminotransferase 59 U/L (0-40); Albumin Level 2.3 g/dL (3.5-5.0); Alkaline Phosphatase 77 U/L (39-117); Anion Gap 16 (12-20); Aspartate Amino Transferase 134 U/L (5-37); Bilirubin Direct 1.2 mg/dL (0.0-0.5); Bilirubin Total 1.9 mg/dL (0.0-1.0); Blood Urea Nitrogen 98 mg/dL (9-16); Calcium 7.5 mg/dL (8.4-10.2); Carbon Dioxide 16 mmol/L (22-29); Chloride 103 mmol/L (96-108); Estimated Glomerular Filt Rate 27; Glucose Random 102 mg/dL (60-115); Magnesium 1.8 mg/dL (1.6-2.6); Potassium 3.9 mmol/L (3.3-5.1); Sodium 131 mmol/L (135-145)
[2021-08-11 06:33] LABS: Reflex Lactate? Lactic Acid Added
--- NOTE | 2021-08-11 07:00 | CA_ITS ---
Transthoracic Echocardiogram Patient (Last, First, Middle): Levi Del Toro M Gender: Male Date of : 1955 Age: 66 Procedure Date: 08/11/2021 Procedure Type: Transthoracic Echocardiogram Location: [facility] [place] Height: 172.72 cm Weight: 88.45 kg BSA: 2.02 m2 Heart Rate: 95 bpm BP: 100 / 54 mmHg Supervisor Electric: SB Referring MD: Lon Watkins MD Principal Secretary: Mikey Aquino MD Symptoms: AF Study Quality: Fair Apical window/contrast ECG Rhythm: Atrial Fibrillation Conclusions: - 1. Normal LV systolic function 2. Mildly dilated left atrium 3. Normal cardiac valvular Dopplers 4. Trivial pericardial effusion more prominent near the left ventricle Findings Procedure Information Contrast agent, definity, is being given per protocol without apparent complications. Left Ventricle Normal left ventricular size, thickness, and systolic function. The visually estimated ejection fraction is between 55-60%. Diastolic function is indeterminate on the basis of available data. Right Ventricle Normal right ventricular cavity size and systolic function. Atria The left atrium is mildly dilated. Interatrial shunt cannot be excluded. The right atrium is normal in size. Aortic Valve There is mild thickening of the aortic valve. There is no aortic valve stenosis. There is no aortic valve regurgitation. Mitral Valve There is mild anterior and posterior mitral leaflet thickening. There is trace mitral valve regurgitation. There is no mitral valve stenosis. Pulmonic Valve The pulmonic valve was not well visualized. Tricuspid Valve The tricuspid valve was not well visualized. Tricuspid regurgitation envelope is inadequate for calculation of right ventricular systolic pressure. Great Vessels All visible segments of the aorta are normal in size. The pulmonary artery was not well visualized. Venous The inferior vena cava is normal in size and collapses greater than 50% with inspiration. Pericardium/Pleural There is a trivial loculated pericardial effusion overlying the left ventricle. Measurements 2D Linear Measurements IVSd: 1.00 0.6-0.9/0.6-1.0 cm LVIDd: 4.51 3.9-5.3/4.2-5.9 cm LVIDd Index: 2.23 2.4-3.2/2.2-3.1 cm/m2 LVIDs: 3.33 2.0-3.6 cm LVPWd: 0.98 0.7-1.1 cm Ao Root: 3.00 2.1-3.5 cm LA Diam: 4.00 2.7-3.8/3.0-4.0 cm LAIDs Index: 1.98 1.5-2.3 cm/m2 LV Mass: 189.02 67-162/88-224 g LV Mass Index: 93.58 43-95/49-115 g/m2 LVOT Diam: 2.00 3.0+(-)1.3 cm 2D Systolic Function EF 4C: 55.80 >55% EF 2C: 49.70 >55% Mitral Valve MV Pk E: 1.10 E'Lateral: 8.73 E'Medial: 7.02 E/E' Med: 15.70 E/E' Lat: 12.60 Aortic Valve AoV Pk Jarret: 1.02 AoV Mn Jarret: 0.76 AoV VTI: 0.20 AoV Pk Grad: 4.00 Aov Mn Grad: 2.00 HILARY Cont.VTI: 2.83 LVOT LVOT Pk Jarret: 0.82 LVOT Mn Jarret: 0.67 LVOT VTI: 0.18 LVOT Pk Grad: 3.00 LVOT Mn Grad: 2.00 LVOT Diam: 2.00 LVOT Area: 3.14 Diastolic Function MV Pk E: 1.10 E'Medial: 7.02 E/E' Med: 15.70 E' Laterial: 8.73 E/E' Lat: 12.60 Right Ventricle TAPSE (mm): 12.40 TVS' Jarret: 9.80 Tricuspid Valve RA Press: 3.00 Great Vessels Aorta Ao Root-2D: 3.00 2.0-3.7 cm Sinus of Valsalva: 3.00 2.0-3.5 cm Ao Asc: 2.60 2.1-3.4 cm Ao Arch: 2.20 Ao Desc: 1.60 Pulmonary Valve PV Pk Jarret: 0.85 Peak PV Grad: 3.00 Updated in Other Vendor System with Status of Final Mikey Aquino MD electronically signed on 08/11/2021 11:11:10 AM with status of Final
[2021-08-11 07:47] LABS: Appearance Urine CLEAR; Color Urine YELLOW; Glucose Urine UA NEG (NEG); Leukocyte Esterase Urine NEG (NEG); Nitrite Urine NEG (NEG); Specific Gravity - Urine >= 1.030 (1.005-1.025); Urine Blood NEG (NEG); Urine Ketones NEG (NEG); Urine Protein TRACE MG/DL (NEG-TRACE)
[2021-08-11 07:54] LABS: Glucose, Whole Blood 93 mg/dL (60-115)
[2021-08-11 08:15] LABS: ~Lactic Acid-LAB USE ONLY 2.7 mmol/L (0.5-2.0)
[2021-08-11 08:22] LABS: Troponin-I High Sensitivity 52.7 ng/L (<3.5-35.0)
--- NOTE | 2021-08-11 08:42 | PHA.PROG ---
Admission Date/Time: August 09, 2021 10:13 Indication: SEPSIS Weight in k.859 kg Adjusted body weight in K.6 [place] body weight in Kg: Obesity Dosing Indication % IBW: Serum Creatinine - Last 168 Hours 08/09/21 08/09/21 08/10/21 05:02 10:52 05:48 Creatinine 2.35 H 2.50 H 2.02 H 08/11/21 04:25 Creatinine 2.39 H Estimated CrCl and GFR - Last 168 Hours 08/09/21 08/09/21 08/10/21 05:02 10:52 05:48 Estim Creat Clear Calc 32.5 30.6 37.9 Estimated GFR 28 26 33 08/11/21 04:25 Estim Creat Clear Calc 32.0 Estimated GFR 27 Vancomycin Loading Dose: 1250MG+500 MG Current Vancomycin Dosing Regimen: 750 MG Q24 Vancomycin Monitoring using AUC goal of 400 - 600 range with trough as surrogate marker:~440 Date and Time for next Vancomycin Level to be drawn:08/12 @0600 Pharmacist Comments on Vancomycin Plan: Added 500 mg to initial 1250 mg load, cautious dosing since patient has EMIGDIO on CKD (due to hypoperfusion). Next level is 08/12 0600 Vancomycin dosing will take advantage of [employer] as a clinical decision support tool that uses Bayesian modeling to calculate individual patient's pharmacokinetic parameters and forecast the patient's drug concentration time course with the target goal AUC 24 range of 400 - 600 mg/L/hr.
[2021-08-11 08:57] LABS: Procalcitonin 7.68 ng/mL
[2021-08-11 09:01] LABS: C Reactive Protein 32.45 mg/dL (< or = 0.50)
[2021-08-11] MEDS: Apixaban 5 MG TABLET PO ×2 (09:21→20:18)
[2021-08-11] MEDS: Metoprolol Succinate ER 50 MG TAB.ER.24H PO (09:22)
[2021-08-11] MEDS: Metoprolol Succinate ER 100 MG TAB.ER.24H PO (09:22)
[2021-08-11] MEDS: Lidocaine 4 % Patch ADH..PATCH 1 PATCH TRANSDERMA (09:26)
--- NOTE | 2021-08-11 09:46 | PM.PNNEP ---
Subjective Subjective Date of Service: 08/11/21 Interval history: Events noted Had diarrhea and hypotension Cr bumped up Physical Exam Vital Signs: Vital Signs: Last Vital Signs Temp 97.4 F 08/11/21 08:00 Pulse 83 08/11/21 08:00 Resp 20 08/11/21 08:00 BP 105/58 L 08/11/21 08:00 Pulse Ox 90 L 08/11/21 08:00 O2 Del Method 08/11/21 08:00 O2 Flow Rate 3 08/11/21 08:00 BMI result Body Mass Index 29.7 Const: General: cooperative Neck: Neck: Yes supple Resp: Effort & Inspection: normal respiratory effort Auscultation: clear to auscultation bilaterally Cardio: Rate: regular rate and tachycardic Heart sounds: no murmurs GI: Palpation (GI): Soft to palpation and nontender Skin: General skin exam: no rashes or lesions noted Neuro: Cognition (Neuro): normal cognition Motor exam (neuro): 5/5 motor strength present throughout Objective Data Labs CBC & Chem 7: 08/11/21 04:25 08/11/21 04:25 Labs: Laboratory Results - last 24 hr 08/10/21 08/10/21 08/10/21 11:04 15:00 15:43 WBC RBC Hgb Hct MCV MCH MCHC RDW Plt Count MPV Immature Gran % (Auto) Neut % (Auto) Lymph % (Auto) [place] % (Auto) Eos % (Auto) Baso % (Auto) Lymph # (Auto) [place] # (Auto) Eos # (Auto) Baso # (Auto) Abs Immat Gran (auto) Absolute Neuts (auto) Absolute Nucleated RBC Nucleated RBC % (auto) Neutrophils % (Manual) Band Neutrophils % Lymphocytes % (Manual) Monocytes % (Manual) Abs Neuts (Manual) Lymphocytes # (Manual) Monocytes # (Manual) Toxic Granulation Toxic Vacuolation Platelet Estimate Large Platelets Plt Morphology Comment RBC Morphology Polychromasia Macrocytosis [place] Cells Sodium Potassium Chloride Carbon Dioxide Anion Gap BUN Creatinine Estim Creat Clear Calc Estimated GFR POC Glucose 189 H 172 H Random Glucose Lactic Acid Lactic Acid F/U @ 2Hr Calcium Magnesium Total Bilirubin Direct Bilirubin AST ALT Alkaline Phosphatase Troponin I High Sens C-Reactive Protein Total Protein Albumin Procalcitonin Urine Color Urine Appearance Urine pH Ur Specific [place] Urine Protein Urine Glucose (UA) Urine Ketones Urine Blood Urine Nitrite Ur Leukocyte Esterase C. difficile Tox B Gene NEGATIVE 08/10/21 08/11/21 08/11/21 20:22 00:00 00:00 WBC 19.3 H RBC 4.04 L Hgb 12.1 L Hct 35.4 L MCV 87.6 MCH 30.0 MCHC 34.2 RDW 13.6 Plt Count 82 L D MPV 13.2 H Immature Gran % (Auto) Cancelled Neut % (Auto) Cancelled Lymph % (Auto) Cancelled [place] % (Auto) Cancelled Eos % (Auto) Cancelled Baso % (Auto) Cancelled Lymph # (Auto) Cancelled [place] # (Auto) Cancelled Eos # (Auto) Cancelled Baso # (Auto) Cancelled Abs Immat Gran (auto) Cancelled Absolute Neuts (auto) Cancelled Absolute Nucleated RBC 0.120 H Nucleated RBC % (auto) 0.6 H Neutrophils % (Manual) 70 Band Neutrophils % 9 H Lymphocytes % (Manual) 9 L Monocytes % (Manual) 12 H Abs Neuts (Manual) 15.2 H Lymphocytes # (Manual) 1.7 Monocytes # (Manual) 2.3 H Toxic Granulation PRESENT Toxic Vacuolation PRESENT Platelet Estimate DECREASED Large Platelets PRESENT Plt Morphology Comment NOTED RBC Morphology NOTED Polychromasia 1+ (0-2) Macrocytosis 1+ (5-14) [place] Cells 1+ (0-2) Sodium Potassium Chloride Carbon Dioxide Anion Gap BUN Creatinine Estim Creat Clear Calc Estimated GFR POC Glucose 167 H Random Glucose Lactic Acid 5.4 H* Lactic Acid F/U @ 2Hr Calcium Magnesium Total Bilirubin Direct Bilirubin AST ALT Alkaline Phosphatase Troponin I High Sens C-Reactive Protein Total Protein Albumin Procalcitonin Urine Color Urine Appearance Urine pH Ur Specific [place] Urine Protein Urine Glucose (UA) Urine Ketones Urine Blood Urine Nitrite Ur Leukocyte Esterase C. difficile Tox B Gene 08/11/21 08/11/21 08/11/21 01:50 03:36 04:25 WBC RBC Hgb Hct MCV MCH MCHC RDW Plt Count MPV Immature Gran % (Auto) Neut % (Auto) Lymph % (Auto) [place] % (Auto) Eos % (Auto) Baso % (Auto) Lymph # (Auto) [place] # (Auto) Eos # (Auto) Baso # (Auto) Abs Immat Gran (auto) Absolute Neuts (auto) Absolute Nucleated RBC Nucleated RBC % (auto) Neutrophils % (Manual) Band Neutrophils % Lymphocytes % (Manual) Monocytes % (Manual) Abs Neuts (Manual) Lymphocytes # (Manual) Monocytes # (Manual) Toxic Granulation Toxic Vacuolation Platelet Estimate Large Platelets Plt Morphology Comment RBC Morphology Polychromasia Macrocytosis [place] Cells Sodium 131 L Potassium 3.9 Chloride 103 Carbon Dioxide 16 L Anion Gap 16 BUN 98 H Creatinine 2.39 H Estim Creat Clear Calc 32.0 Estimated GFR 27 POC Glucose Random Glucose 102 D Lactic Acid Lactic Acid F/U @ 2Hr TNP Calcium 7.5 L D Magnesium 1.8 Total Bilirubin 1.9 H Direct Bilirubin 1.2 H AST 134 H ALT 59 H Alkaline Phosphatase 77 D Troponin I High Sens 60.5 H D C-Reactive Protein 32.45 H Total Protein 6.0 L Albumin 2.3 L Procalcitonin Urine Color Urine Appearance Urine pH Ur Specific [place] Urine Protein Urine Glucose (UA) Urine Ketones Urine Blood Urine Nitrite Ur Leukocyte Esterase C. difficile Tox B Gene 08/11/21 08/11/21 08/11/21 04:25 04:25 04:25 WBC 16.8 H RBC 3.69 L Hgb 11.0 L Hct 32.8 L MCV 88.9 MCH 29.8 MCHC 33.5 RDW 13.9 Plt Count 82 L MPV 13.5 H Immature Gran % (Auto) Neut % (Auto) Lymph % (Auto) [place] % (Auto) Eos % (Auto) Baso % (Auto) Lymph # (Auto) [place] # (Auto) Eos # (Auto) Baso # (Auto) Abs Immat Gran (auto) Absolute Neuts (auto) Absolute Nucleated RBC 0.080 H Nucleated RBC % (auto) 0.5 H Neutrophils % (Manual) Band Neutrophils % Lymphocytes % (Manual) Monocytes % (Manual) Abs Neuts (Manual) Lymphocytes # (Manual) Monocytes # (Manual) Toxic Granulation Toxic Vacuolation Platelet Estimate Large Platelets Plt Morphology Comment RBC Morphology Polychromasia Macrocytosis [place] Cells Sodium Potassium Chloride Carbon Dioxide Anion Gap BUN Creatinine Estim Creat Clear Calc Estimated GFR POC Glucose Random Glucose Lactic Acid 2.9 H* Lactic Acid F/U @ 2Hr Calcium Magnesium Total Bilirubin Direct Bilirubin AST ALT Alkaline Phosphatase Troponin I High Sens C-Reactive Protein Total Protein Albumin Procalcitonin 7.68 Urine Color Urine Appearance Urine pH Ur Specific [place] Urine Protein Urine Glucose (UA) Urine Ketones Urine Blood Urine Nitrite Ur Leukocyte Esterase C. difficile Tox B Gene 08/11/21 08/11/21 08/11/21 06:32 07:30 07:30 WBC RBC Hgb Hct MCV MCH MCHC RDW Plt Count MPV Immature Gran % (Auto) Neut % (Auto) Lymph % (Auto) [place] % (Auto) Eos % (Auto) Baso % (Auto) Lymph # (Auto) [place] # (Auto) Eos # (Auto) Baso # (Auto) Abs Immat Gran (auto) Absolute Neuts (auto) Absolute Nucleated RBC Nucleated RBC % (auto) Neutrophils % (Manual) Band Neutrophils % Lymphocytes % (Manual) Monocytes % (Manual) Abs Neuts (Manual) Lymphocytes # (Manual) Monocytes # (Manual) Toxic Granulation Toxic Vacuolation Platelet Estimate Large Platelets Plt Morphology Comment RBC Morphology Polychromasia Macrocytosis [place] Cells Sodium Potassium Chloride Carbon Dioxide Anion Gap BUN Creatinine Estim Creat Clear Calc Estimated GFR POC Glucose Random Glucose Lactic Acid Lactic Acid F/U @ 2Hr 2.7 H* Calcium Magnesium Total Bilirubin Direct Bilirubin AST ALT Alkaline Phosphatase Troponin I High Sens 52.7 H C-Reactive Protein Total Protein Albumin Procalcitonin Urine Color YELLOW Urine Appearance CLEAR Urine pH 5.0 Ur Specific [place] >= 1.030 H Urine Protein TRACE Urine Glucose (UA) NEG Urine Ketones NEG Urine Blood NEG Urine Nitrite NEG Ur Leukocyte Esterase NEG C. difficile Tox B Gene 08/11/21 07:51 WBC RBC Hgb Hct MCV MCH MCHC RDW Plt Count MPV Immature Gran % (Auto) Neut % (Auto) Lymph % (Auto) [place] % (Auto) Eos % (Auto) Baso % (Auto) Lymph # (Auto) [place] # (Auto) Eos # (Auto) Baso # (Auto) Abs Immat Gran (auto) Absolute Neuts (auto) Absolute Nucleated RBC Nucleated RBC % (auto) Neutrophils % (Manual) Band Neutrophils % Lymphocytes % (Manual) Monocytes % (Manual) Abs Neuts (Manual) Lymphocytes # (Manual) Monocytes # (Manual) Toxic Granulation Toxic Vacuolation Platelet Estimate Large Platelets Plt Morphology Comment RBC Morphology Polychromasia Macrocytosis [place] Cells Sodium Potassium Chloride Carbon Dioxide Anion Gap BUN Creatinine Estim Creat Clear Calc Estimated GFR POC Glucose 93 Random Glucose Lactic Acid Lactic Acid F/U @ 2Hr Calcium Magnesium Total Bilirubin Direct Bilirubin AST ALT Alkaline Phosphatase Troponin I High Sens C-Reactive Protein Total Protein Albumin Procalcitonin Urine Color Urine Appearance Urine pH Ur Specific [place] Urine Protein Urine Glucose (UA) Urine Ketones Urine Blood Urine Nitrite Ur Leukocyte Esterase C. difficile Tox B Gene Procedures Date of Service Date of Service: 08/11/21 Assessment & Plan Assessment and plan (1) Acute hyponatremia: Status: Acute (2) Acute kidney injury: Status: Acute Plan 1. Acute kidney injury superimposed on chronic kidney disease. 2. Hyponatremia. 3. Hyperkalemia. 4. Mild anemia with thrombocytopenia. 5. Low total CO2.? Metabolic acidosis versus respiratory alkalosis.? Elevated LFTs. 6. Hyponatremia is most likely due to hypovolemia and continued use of hydrochlorothiazide which can decrease free water clearance.? He does have hyperkalemia, which could be due to the combination of acute kidney injury and the continued use of spironolactone.? The acute kidney injury is mostly due to hypoperfusion; Low urine sodium supports this. thrombocytopenia, - No evidence of GN ? ? Hold spironolactone, Lasix, and hydrochlorothiazide.? IV hydration - CHANGE to LR at 100 cc/hr Hold antihypertensive medications.? Avoid hypotension.? IftCO2 drops below 16, ADD NaHCO3 Continue to avoid nephrotoxic agents.? Watch intake and output. Restrict PO water intake and watch Na Time Spent With Patient Time: Total time spent is greater than 50% in coordination of care (as documented) at patient's floor/unit and/or counseling patient: Progress Note: Quality Stroke Does the patient have a stroke diagnosis?: No
[2021-08-11 09:54] LABS: Reflex Lactate? 2 Y
[2021-08-11 10:37] LABS: ~Lactic Acid-LAB USE ONLY 2.5 mmol/L (0.5-2.0)
[2021-08-11] MEDS: vancomycin HCL 500 MG in 0.9 % Sodium Chloride 100 ML 110 MG IV (10:41)
[2021-08-11] MEDS: Acetaminophen 325 MG TABLET 650 MG PO (10:48)
[2021-08-11 10:59] LABS: Glucose, Whole Blood 86 mg/dL (60-115)
[2021-08-11] MEDS: Thiamine HCL 500 MG in 0.9 % Sodium Chloride 100 ML 210 MG IV ×3 (11:22→20:22)
--- NOTE | 2021-08-11 11:23 | P.PNCA_ITS ---
Subjective Subjective Date of Service: 08/11/21 Principal diagnosis: AF Interval history: Patient with atrial fibrillation rate control. However overall does not look well. Complains of significant back pain. Appears toxic. Sepsis protocol has been initiated because of low blood pressure, high WBC count as well as elevated lactic acid. Review of Systems Constitutional: Reports body ache(s) and Reports malaise Cardiovascular: Reports no additional cardiovascular complaints Respiratory: Reports no additional respiratory complaints Musculoskeletal: Reports back pain Reports system reviewed and no additional complaints, except as documented Endocrine: Reports no additional endocrine complaints Physical Exam Vital Signs: Last Vital Signs Temp 97.4 F 08/11/21 08:00 Pulse 83 08/11/21 10:40 Resp 20 08/11/21 08:00 BP 105/58 L 08/11/21 10:40 Pulse Ox 90 L 08/11/21 10:40 O2 Del Method 08/11/21 08:00 O2 Flow Rate 3 08/11/21 08:00 BMI result Body Mass Index 29.7 Const General: cooperative and ill appearing Nutritional Appearance: overweight Orientation/consciousness: patient oriented x3 Neck Neck: Yes trachea midline, Yes supple and Yes no JVD Resp Effort & Inspection: decreased respiratory effort Auscultation: clear to auscultation bilaterally Cardio Jugular venous distension: no JVD Rate: regular rate Rhythm: abnormal rhythm irregularly irregular Heart sounds: S1 normal heart sound present and S2 normal heart sound present GI Palpation (GI): Soft to palpation Auscultation: normal bowel sounds Skin General skin exam: no rashes or lesions noted Neuro General: patient oriented x3 and no focal motor deficits Extrem General: Yes no clubbing, cyanosis or edema Objective Labs and Meds Result diagrams: 08/11/21 04:25 08/11/21 04:25 Lab results: Laboratory Results - last 24 hr 08/10/21 08/10/21 08/10/21 11:04 15:00 15:43 WBC RBC Hgb Hct MCV MCH MCHC RDW Plt Count MPV Immature Gran % (Auto) Neut % (Auto) Lymph % (Auto) [place] % (Auto) Eos % (Auto) Baso % (Auto) Lymph # (Auto) [place] # (Auto) Eos # (Auto) Baso # (Auto) Abs Immat Gran (auto) Absolute Neuts (auto) Absolute Nucleated RBC Nucleated RBC % (auto) Neutrophils % (Manual) Band Neutrophils % Lymphocytes % (Manual) Monocytes % (Manual) Abs Neuts (Manual) Lymphocytes # (Manual) Monocytes # (Manual) Toxic Granulation Toxic Vacuolation Platelet Estimate Large Platelets Plt Morphology Comment RBC Morphology Polychromasia Macrocytosis [place] Cells Sodium Potassium Chloride Carbon Dioxide Anion Gap BUN Creatinine Estim Creat Clear Calc Estimated GFR POC Glucose 189 H 172 H Random Glucose Lactic Acid Lactic Acid F/U @ 2Hr Lactic Acid F/U @ 4Hr Calcium Magnesium Total Bilirubin Direct Bilirubin AST ALT Alkaline Phosphatase Troponin I High Sens C-Reactive Protein Total Protein Albumin Procalcitonin Urine Color Urine Appearance Urine pH Ur Specific [place] Urine Protein Urine Glucose (UA) Urine Ketones Urine Blood Urine Nitrite Ur Leukocyte Esterase C. difficile Tox B Gene NEGATIVE 08/10/21 08/11/21 08/11/21: 00:00 00:00 WBC 19.3 H RBC 4.04 L Hgb 12.1 L Hct 35.4 L MCV 87.6 MCH 30.0 MCHC 34.2 RDW 13.6 Plt Count 82 L D MPV 13.2 H Immature Gran % (Auto) Cancelled Neut % (Auto) Cancelled Lymph % (Auto) Cancelled [place] % (Auto) Cancelled Eos % (Auto) Cancelled Baso % (Auto) Cancelled Lymph # (Auto) Cancelled [place] # (Auto) Cancelled Eos # (Auto) Cancelled Baso # (Auto) Cancelled Abs Immat Gran (auto) Cancelled Absolute Neuts (auto) Cancelled Absolute Nucleated RBC 0.120 H Nucleated RBC % (auto) 0.6 H Neutrophils % (Manual) 70 Band Neutrophils % 9 H Lymphocytes % (Manual) 9 L Monocytes % (Manual) 12 H Abs Neuts (Manual) 15.2 H Lymphocytes # (Manual) 1.7 Monocytes # (Manual) 2.3 H Toxic Granulation PRESENT Toxic Vacuolation PRESENT Platelet Estimate DECREASED Large Platelets PRESENT Plt Morphology Comment NOTED RBC Morphology NOTED Polychromasia 1+ (0-2) Macrocytosis 1+ (5-14) [place] Cells 1+ (0-2) Sodium Potassium Chloride Carbon Dioxide Anion Gap BUN Creatinine Estim Creat Clear Calc Estimated GFR POC Glucose 167 H Random Glucose Lactic Acid 5.4 H* Lactic Acid F/U @ 2Hr Lactic Acid F/U @ 4Hr Calcium Magnesium Total Bilirubin Direct Bilirubin AST ALT Alkaline Phosphatase Troponin I High Sens C-Reactive Protein Total Protein Albumin Procalcitonin Urine Color Urine Appearance Urine pH Ur Specific [place] Urine Protein Urine Glucose (UA) Urine Ketones Urine Blood Urine Nitrite Ur Leukocyte Esterase C. difficile Tox B Gene 08/11/21 08/11/21 08/11/21 01:50 03:36 04:25 WBC RBC Hgb Hct MCV MCH MCHC RDW Plt Count MPV Immature Gran % (Auto) Neut % (Auto) Lymph % (Auto) [place] % (Auto) Eos % (Auto) Baso % (Auto) Lymph # (Auto) [place] # (Auto) Eos # (Auto) Baso # (Auto) Abs Immat Gran (auto) Absolute Neuts (auto) Absolute Nucleated RBC Nucleated RBC % (auto) Neutrophils % (Manual) Band Neutrophils % Lymphocytes % (Manual) Monocytes % (Manual) Abs Neuts (Manual) Lymphocytes # (Manual) Monocytes # (Manual) Toxic Granulation Toxic Vacuolation Platelet Estimate Large Platelets Plt Morphology Comment RBC Morphology Polychromasia Macrocytosis [place] Cells Sodium 131 L Potassium 3.9 Chloride 103 Carbon Dioxide 16 L Anion Gap 16 BUN 98 H Creatinine 2.39 H Estim Creat Clear Calc 32.0 Estimated GFR 27 POC Glucose Random Glucose 102 D Lactic Acid Lactic Acid F/U @ 2Hr TNP Lactic Acid F/U @ 4Hr Calcium 7.5 L D Magnesium 1.8 Total Bilirubin 1.9 H Direct Bilirubin 1.2 H AST 134 H ALT 59 H Alkaline Phosphatase 77 D Troponin I High Sens 60.5 H D C-Reactive Protein 32.45 H Total Protein 6.0 L Albumin 2.3 L Procalcitonin Urine Color Urine Appearance Urine pH Ur Specific [place] Urine Protein Urine Glucose (UA) Urine Ketones Urine Blood Urine Nitrite Ur Leukocyte Esterase C. difficile Tox B Gene 08/11/21 08/11/21 08/11/21 04:25 04:25 04:25 WBC 16.8 H RBC 3.69 L Hgb 11.0 L Hct 32.8 L MCV 88.9 MCH 29.8 MCHC 33.5 RDW 13.9 Plt Count 82 L MPV 13.5 H Immature Gran % (Auto) Neut % (Auto) Lymph % (Auto) [place] % (Auto) Eos % (Auto) Baso % (Auto) Lymph # (Auto) [place] # (Auto) Eos # (Auto) Baso # (Auto) Abs Immat Gran (auto) Absolute Neuts (auto) Absolute Nucleated RBC 0.080 H Nucleated RBC % (auto) 0.5 H Neutrophils % (Manual) Band Neutrophils % Lymphocytes % (Manual) Monocytes % (Manual) Abs Neuts (Manual) Lymphocytes # (Manual) Monocytes # (Manual) Toxic Granulation Toxic Vacuolation Platelet Estimate Large Platelets Plt Morphology Comment RBC Morphology Polychromasia Macrocytosis [place] Cells Sodium Potassium Chloride Carbon Dioxide Anion Gap BUN Creatinine Estim Creat Clear Calc Estimated GFR POC Glucose Random Glucose Lactic Acid 2.9 H* Lactic Acid F/U @ 2Hr Lactic Acid F/U @ 4Hr Calcium Magnesium Total Bilirubin Direct Bilirubin AST ALT Alkaline Phosphatase Troponin I High Sens C-Reactive Protein Total Protein Albumin Procalcitonin 7.68 Urine Color Urine Appearance Urine pH Ur Specific [place] Urine Protein Urine Glucose (UA) Urine Ketones Urine Blood Urine Nitrite Ur Leukocyte Esterase C. difficile Tox B Gene 08/11/21 08/11/21 08/11/21 06:32 07:30 07:30 WBC RBC Hgb Hct MCV MCH MCHC RDW Plt Count MPV Immature Gran % (Auto) Neut % (Auto) Lymph % (Auto) [place] % (Auto) Eos % (Auto) Baso % (Auto) Lymph # (Auto) [place] # (Auto) Eos # (Auto) Baso # (Auto) Abs Immat Gran (auto) Absolute Neuts (auto) Absolute Nucleated RBC Nucleated RBC % (auto) Neutrophils % (Manual) Band Neutrophils % Lymphocytes % (Manual) Monocytes % (Manual) Abs Neuts (Manual) Lymphocytes # (Manual) Monocytes # (Manual) Toxic Granulation Toxic Vacuolation Platelet Estimate Large Platelets Plt Morphology Comment RBC Morphology Polychromasia Macrocytosis [place] Cells Sodium Potassium Chloride Carbon Dioxide Anion Gap BUN Creatinine Estim Creat Clear Calc Estimated GFR POC Glucose Random Glucose Lactic Acid Lactic Acid F/U @ 2Hr 2.7 H* Lactic Acid F/U @ 4Hr Calcium Magnesium Total Bilirubin Direct Bilirubin AST ALT Alkaline Phosphatase Troponin I High Sens 52.7 H C-Reactive Protein Total Protein Albumin Procalcitonin Urine Color YELLOW Urine Appearance CLEAR Urine pH 5.0 Ur Specific [place] >= 1.030 H Urine Protein TRACE Urine Glucose (UA) NEG Urine Ketones NEG Urine Blood NEG Urine Nitrite NEG Ur Leukocyte Esterase NEG C. difficile Tox B Gene 08/11/21 08/11/21 08/11/21 07:51 09:59 10:55 WBC RBC Hgb Hct MCV MCH MCHC RDW Plt Count MPV Immature Gran % (Auto) Neut % (Auto) Lymph % (Auto) [place] % (Auto) Eos % (Auto) Baso % (Auto) Lymph # (Auto) [place] # (Auto) Eos # (Auto) Baso # (Auto) Abs Immat Gran (auto) Absolute Neuts (auto) Absolute Nucleated RBC Nucleated RBC % (auto) Neutrophils % (Manual) Band Neutrophils % Lymphocytes % (Manual) Monocytes % (Manual) Abs Neuts (Manual) Lymphocytes # (Manual) Monocytes # (Manual) Toxic Granulation Toxic Vacuolation Platelet Estimate Large Platelets Plt Morphology Comment RBC Morphology Polychromasia Macrocytosis [place] Cells Sodium Potassium Chloride Carbon Dioxide Anion Gap BUN Creatinine Estim Creat Clear Calc Estimated GFR POC Glucose 93 86 Random Glucose Lactic Acid Lactic Acid F/U @ 2Hr Lactic Acid F/U @ 4Hr 2.5 H* Calcium Magnesium Total Bilirubin Direct Bilirubin AST ALT Alkaline Phosphatase Troponin I High Sens C-Reactive Protein Total Protein Albumin Procalcitonin Urine Color Urine Appearance Urine pH Ur Specific [place] Urine Protein Urine Glucose (UA) Urine Ketones Urine Blood Urine Nitrite Ur Leukocyte Esterase C. difficile Tox B Gene Imaging Radiologist's impression: Impressions Chest X-Ray 08/11/21 01:30 IMPRESSION: Unremarkable examination. Progress Note: A&P Assessment and plan (1) Atrial fibrillation, new onset: Status: Acute Assessment and Plan: New onset atrial fibrillation with controlled ventricular rate with no overt signs of congestive heart failure at this point time. Echocardiogram shows normal LV systolic function with mild left atrial enlargement. Rate is adequately controlled. Continue rate control approach. His creatinine remains elevated and needs to be followed. At this point time given his age and body weight, adequate dose of Eliquis. However if his renal function worsens may need to reconsider oral anticoagulant therapy. There is no need for additional aspirin therapy at this point time to reduce bleeding risk. Overall patient however medically appears to be not doing well. Being followed closely by hospitalist team. There were no significant cardiac issues at this point time. Will sign of the case. Thank you for allowing me to partake in his care Time Spent With Patient Time: Total time spent is greater than 50% in coordination of care (as documented) at patient's floor/unit and/or counseling patient: Progress Note: Quality Stroke Does the patient have a stroke diagnosis?: No Procedures Date of Service Date of Service: 08/11/21
--- NOTE | 2021-08-11 11:56 | MHC.SL.SWA ---
Speech Pathologist Impression: Oropharyngeal dysphagia, pharyngoesophageal dysphagia Dysphasia Diet Status: Upgrade Liquid Consistency and Strategies for Safe Swallow: Liquid Intake Recommendation: Thin Liquid Intake Strategies: Small Sips No Straws Solid Food Consistency: Dietary Recommendations: Regular Additional Modifications to Solid Foods: Patient seen for bedside dysphagia evaluation this morning. [facility]. Mildly prolonged oral preparatory phase, but with complete oral clearance. Noted incomplete laryngeal elevation, mildly delayed swallow. Noted burping when drinking thin liquid and nectar thick liquid. ? if burping indicates possible G.I. concern. No coughing. Voice was clear after PO trials. Educated patient and patient's partner on s/s of aspiration, recommended aspiration precautions. Recommend upgrade patient from NPO to REGULAR solids with THIN liquids (NO STRAWS), pills WHOLE in PUREE w/ supervision and aspiration precautions. Recommend patient to be seated upright 90 degree position during PO intake and for at least 30 minutes afterwards. Updated MD, RN, RD of recommendation via [place] Message. DEHYDROGENATION CONVERTER HELPER will continue to follow. Oral Medication Intake: Whole with Puree Please contact the pharmacy regarding appropriate crushable or liquid drug formulations that are available whenever modified delivery is recommended. Compensatory Strategies and Precautions to be Taken for Safe Swallow: Sitting Upright (90 deg) No Straw Small Bites and Sips Alternate Liquids/Solids Rate of Ingestion Change Avoid Specific Foods Supervision While Eating and Drinking for Safe Swallow: Total Supervision (1:1) Foods to Avoid: Tough, difficult to chew solids Swallowing Recommended Treatments: Compens. Strategy Educat. Recommendation for Speech: Inpatient Speech Therapy Comment: DEHYDROGENATION CONVERTER HELPER to f/u Frequency/Duration: Date Range for Service Req: Timeline to reassess: Automation Controls Specialist Clinican/Clinical Fellow: No Supervisory Statement: I have reviewed and agree with the student/clinical fellow's documentation: N/A Speech Language Pathologist: Rochelle Davis M.A., CCC-DEHYDROGENATION CONVERTER HELPER
--- NOTE | 2021-08-11 12:00 | MHC.CM.PN ---
PER MD ROUNDS, PT NOT YET MEDICALLY CLEARED FOR DISCHARGE DC PLAN REMAINS HOME WITH NO SERVICES VIA SELF-ARRANGED TRANSPORT
--- NOTE | 2021-08-11 13:44 | P.PNIM_ITS ---
Subjective Subjective Date of Service: 08/11/21 Interval History: Overnight became hypotensive. Noted to have leukocytosis + lactic acidosis Given 30 cc/kg IV fluid bolus and BP improved. Started vanco + cefepime [I changed to ceftriaxone] empirically for sepsis, unclear source. UA without evidence of infection, CXR clear. Pt had some chest pressure that has resolved Not tremulous. Still having diarrhea + vague abd discomfort. BCx x2 just turned positive for GPCs in clusters. Review of Systems Review of Systems: Yes all other systems are reviewed and are negative Physical Exam Vital Signs: Vital Signs: Last Vital Signs Temp 97.4 F 08/11/21 11:30 Pulse 70 08/11/21 11:30 Resp 23 H 08/11/21 11:30 BP 103/56 L 08/11/21 11:30 Pulse Ox 90 L 08/11/21 11:30 O2 Del Method 08/11/21 11:30 O2 Flow Rate 3 08/11/21 11:30 BMI result Body Mass Index 29.7 Gen: ill appearing HEENT: sclera anicteric, moist mucus membranes Neck: supple Lungs: clear to auscultation bilaterally Heart: irregularly irregular,, no murmurs Abd: soft, non-tender, non-distended Ext: no edema Skin: warm/well-perfused Neuro: alert and oriented x3, no focal findings Psych: appropriate affect Objective Data Active Medications Acetaminophen (Acetaminophen 325 Mg Tablet) 650 mg PO Q6H PRN PRN Reason: Pain, Mild (Pain Scale 1-3) Last Admin: 08/11/21 10:48 Dose: 650 mg Documented By: VALENCIA Apixaban (Apixaban 5 Mg Tablet) 5 mg PO BID [facility] Last Admin: 08/11/21 09:21 Dose: 5 mg Documented By: VALENCIA Aspirin (Aspirin Enteric Coated 81 Mg Tablet.) 81 mg PO BEDTIME [facility] Last Admin: 08/10/21 19:53 Dose: 81 mg Documented By: RAMON Atorvastatin Calcium (Atorvastatin Calcium 40 Mg Tablet) 40 mg PO BEDTIME [facility] Last Admin: 08/10/21 19:47 Dose: 40 mg Documented By: RAMON Dextrose (Dextrose 50 % 25 Gm/50 Ml Syringe) 25 gm IVPUSH Q15M PRN; Protocol PRN Reason: per Hypoglycemia Standing Ord. Glucose (Glucose Gel 15 Gm Gel..Gram.) 15 gm PO Q15M PRN; Protocol PRN Reason: per Hypoglycemia Standing Ord. Sodium Chloride (Ns) 1,000 mls @ 75 mls/hr IVCONT .[id number] [facility] Last Infusion: 08/11/21 02:31 Dose: 0 mls/hr Documented By: RAMON Diltiazem HCl 125 mg/ Sodium (Chloride) 125 mls @ 0 mls/hr IVCONT .Q0M [facility]; Protocol Last Titration: 08/10/21 20:18 Dose: 0 mg/hr, 0 mls/hr Documented By: RAMON Ceftriaxone Sodium 1 gm/ (Sodium Chloride) 50 mls @ 100 mls/hr IV Q24H MENG Vancomycin HCl 750 mg/ Sodium (Chloride) 265 mls @ 265 mls/hr IV Q24H MENG Thiamine HCl 500 mg/ Sodium (Chloride) 105 mls @ 210 mls/hr IV TID [facility] Stop: 08/12/21 21:29 Last Infusion: 08/11/21 12:17 Dose: 210 mls/hr Documented By: VALENCIA Thiamine HCl 100 mg/ Sodium (Chloride) 101 mls @ 202 mls/hr IV DAILY [facility] Insulin Human Lispro (Insulin Lispro 100 Unit/Ml 3 Ml Vial) 0 unit SUBCUT QIDACHS [facility]; Protocol Last Admin: 08/11/21 11:28 Dose: Not Given Documented By: VALENCIA Non-Admin Reason: No Insulin Coverage Lidocaine (Lidocaine 4 % Patch Adh..Patch) 1 patch TRANSDERMA DAILY [facility]; Protocol Last Admin: 08/11/21 09:26 Dose: 1 patch Documented By: VALENCIA Loperamide HCl (Loperamide Hcl 2 Mg Capsule) 2 mg PO Q4H PRN PRN Reason: Diarrhea Last Admin: 08/11/21 09:21 Dose: 2 mg Documented By: VALENCIA Metoprolol Succinate (Metoprolol Succinate Er 100 Mg Tab.Er.24h) 100 mg PO DAILY [facility]; Protocol Last Admin: 08/11/21 09:22 Dose: 100 mg Documented By: VALENCIA Metoprolol Succinate (Metoprolol Succinate Er 50 Mg Tab.Er.24h) 50 mg PO DAILY [facility]; Protocol Last Admin: 08/11/21 09:22 Dose: 50 mg Documented By: VALENCIA Omeprazole (Omeprazole 20 Mg Capsule.Dr) 20 mg PO DAILY@0630 [facility] Last Admin: 08/11/21 06:35 Dose: Not Given Documented By: RAMON Non-Admin Reason: needs swallow eval Ondansetron HCl (Ondansetron Hcl 4 Mg/2 Ml Vial) 4 mg IVPUSH Q8H PRN PRN Reason: Nausea and Vomiting Pharmacy Consult (Consult Rx Vancomycin Dosing) 1 each MISCELLANE DAILY PRN PRN Reason: Consult order Pharmacy Consult (Consult Rx Vancomycin Dosing) 1 each MISCELLANE DAILY MNEG Sodium Chloride (0.9 % Sodium Chloride Flush 3 Ml Syringe) 3 ml IVFLUSH QSHIFT [facility] Last Admin: 08/11/21 09:22 Dose: Not Given Documented By: VALENCIA Non-Admin Reason: IV Running Labs CBC & Chem 7: 08/11/21 04:25 08/11/21 04:25 Labs: Laboratory Results - last 24 hr 08/10/21 08/10/21 08/10/21 15:00 15:43 20:22 MCV MCH MCHC RDW Plt Count MPV Immature Gran % (Auto) Neut % (Auto) Lymph % (Auto) [place] % (Auto) Eos % (Auto) Baso % (Auto) Lymph # (Auto) [place] # (Auto) Eos # (Auto) Baso # (Auto) Abs Immat Gran (auto) Absolute Neuts (auto) Absolute Nucleated RBC Nucleated RBC % (auto) Neutrophils % (Manual) Band Neutrophils % Lymphocytes % (Manual) Monocytes % (Manual) Abs Neuts (Manual) Lymphocytes # (Manual) Monocytes # (Manual) Toxic Granulation Toxic Vacuolation Platelet Estimate Large Platelets Plt Morphology Comment RBC Morphology Polychromasia Macrocytosis [place] Cells Anion Gap Estim Creat Clear Calc Estimated GFR POC Glucose 172 H 167 H Random Glucose Lactic Acid Lactic Acid F/U @ 2Hr Lactic Acid F/U @ 4Hr Calcium Magnesium Total Bilirubin Direct Bilirubin AST ALT Alkaline Phosphatase Troponin I High Sens C-Reactive Protein Total Protein Albumin Procalcitonin Urine Color Urine Appearance Urine pH Ur Specific [place] Urine Protein Urine Glucose (UA) Urine Ketones Urine Blood Urine Nitrite Ur Leukocyte Esterase C. difficile Tox B Gene NEGATIVE 08/11/21 08/11/21 08/11/21 00:00 00:00 01:50 MCV 87.6 MCH 30.0 MCHC 34.2 RDW 13.6 Plt Count 82 L D MPV 13.2 H Immature Gran % (Auto) Cancelled Neut % (Auto) Cancelled Lymph % (Auto) Cancelled [place] % (Auto) Cancelled Eos % (Auto) Cancelled Baso % (Auto) Cancelled Lymph # (Auto) Cancelled [place] # (Auto) Cancelled Eos # (Auto) Cancelled Baso # (Auto) Cancelled Abs Immat Gran (auto) Cancelled Absolute Neuts (auto) Cancelled Absolute Nucleated RBC 0.120 H Nucleated RBC % (auto) 0.6 H Neutrophils % (Manual) 70 Band Neutrophils % 9 H Lymphocytes % (Manual) 9 L Monocytes % (Manual) 12 H Abs Neuts (Manual) 15.2 H Lymphocytes # (Manual) 1.7 Monocytes # (Manual) 2.3 H Toxic Granulation PRESENT Toxic Vacuolation PRESENT Platelet Estimate DECREASED Large Platelets PRESENT Plt Morphology Comment NOTED RBC Morphology NOTED Polychromasia 1+ (0-2) Macrocytosis 1+ (5-14) [place] Cells 1+ (0-2) Anion Gap Estim Creat Clear Calc Estimated GFR POC Glucose Random Glucose Lactic Acid 5.4 H* Lactic Acid F/U @ 2Hr Lactic Acid F/U @ 4Hr Calcium Magnesium Total Bilirubin Direct Bilirubin AST ALT Alkaline Phosphatase Troponin I High Sens 60.5 H D C-Reactive Protein Total Protein Albumin Procalcitonin Urine Color Urine Appearance Urine pH Ur Specific [place] Urine Protein Urine Glucose (UA) Urine Ketones Urine Blood Urine Nitrite Ur Leukocyte Esterase C. difficile Tox B Gene 08/11/21 08/11/21 08/11/21 03:36 04:25 04:25 MCV 88.9 MCH 29.8 MCHC 33.5 RDW 13.9 Plt Count 82 L MPV 13.5 H Immature Gran % (Auto) Neut % (Auto) Lymph % (Auto) [place] % (Auto) Eos % (Auto) Baso % (Auto) Lymph # (Auto) [place] # (Auto) Eos # (Auto) Baso # (Auto) Abs Immat Gran (auto) Absolute Neuts (auto) Absolute Nucleated RBC 0.080 H Nucleated RBC % (auto) 0.5 H Neutrophils % (Manual) Band Neutrophils % Lymphocytes % (Manual) Monocytes % (Manual) Abs Neuts (Manual) Lymphocytes # (Manual) Monocytes # (Manual) Toxic Granulation Toxic Vacuolation Platelet Estimate Large Platelets Plt Morphology Comment RBC Morphology Polychromasia Macrocytosis [place] Cells Anion Gap 16 Estim Creat Clear Calc 32.0 Estimated GFR 27 POC Glucose Random Glucose 102 D Lactic Acid Lactic Acid F/U @ 2Hr TNP Lactic Acid F/U @ 4Hr Calcium 7.5 L D Magnesium 1.8 Total Bilirubin 1.9 H Direct Bilirubin 1.2 H AST 134 H ALT 59 H Alkaline Phosphatase 77 D Troponin I High Sens C-Reactive Protein 32.45 H Total Protein 6.0 L Albumin 2.3 L Procalcitonin Urine Color Urine Appearance Urine pH Ur Specific [place] Urine Protein Urine Glucose (UA) Urine Ketones Urine Blood Urine Nitrite Ur Leukocyte Esterase C. difficile Tox B Gene 08/11/21 08/11/21 08/11/21 04:25 04:25 06:32 MCV MCH MCHC RDW Plt Count MPV Immature Gran % (Auto) Neut % (Auto) Lymph % (Auto) [place] % (Auto) Eos % (Auto) Baso % (Auto) Lymph # (Auto) [place] # (Auto) Eos # (Auto) Baso # (Auto) Abs Immat Gran (auto) Absolute Neuts (auto) Absolute Nucleated RBC Nucleated RBC % (auto) Neutrophils % (Manual) Band Neutrophils % Lymphocytes % (Manual) Monocytes % (Manual) Abs Neuts (Manual) Lymphocytes # (Manual) Monocytes # (Manual) Toxic Granulation Toxic Vacuolation Platelet Estimate Large Platelets Plt Morphology Comment RBC Morphology Polychromasia Macrocytosis [place] Cells Anion Gap Estim Creat Clear Calc Estimated GFR POC Glucose Random Glucose Lactic Acid 2.9 H* Lactic Acid F/U @ 2Hr Lactic Acid F/U @ 4Hr Calcium Magnesium Total Bilirubin Direct Bilirubin AST ALT Alkaline Phosphatase Troponin I High Sens C-Reactive Protein Total Protein Albumin Procalcitonin 7.68 Urine Color YELLOW Urine Appearance CLEAR Urine pH 5.0 Ur Specific [place] >= 1.030 H Urine Protein TRACE Urine Glucose (UA) NEG Urine Ketones NEG Urine Blood NEG Urine Nitrite NEG Ur Leukocyte Esterase NEG C. difficile Tox B Gene 08/11/21 08/11/21 08/11/21 07:30 07:30 07:51 MCV MCH MCHC RDW Plt Count MPV Immature Gran % (Auto) Neut % (Auto) Lymph % (Auto) [place] % (Auto) Eos % (Auto) Baso % (Auto) Lymph # (Auto) [place] # (Auto) Eos # (Auto) Baso # (Auto) Abs Immat Gran (auto) Absolute Neuts (auto) Absolute Nucleated RBC Nucleated RBC % (auto) Neutrophils % (Manual) Band Neutrophils % Lymphocytes % (Manual) Monocytes % (Manual) Abs Neuts (Manual) Lymphocytes # (Manual) Monocytes # (Manual) Toxic Granulation Toxic Vacuolation Platelet Estimate Large Platelets Plt Morphology Comment RBC Morphology Polychromasia Macrocytosis [place] Cells Anion Gap Estim Creat Clear Calc Estimated GFR POC Glucose 93 Random Glucose Lactic Acid Lactic Acid F/U @ 2Hr 2.7 H* Lactic Acid F/U @ 4Hr Calcium Magnesium Total Bilirubin Direct Bilirubin AST ALT Alkaline Phosphatase Troponin I High Sens 52.7 H C-Reactive Protein Total Protein Albumin Procalcitonin Urine Color Urine Appearance Urine pH Ur Specific [place] Urine Protein Urine Glucose (UA) Urine Ketones Urine Blood Urine Nitrite Ur Leukocyte Esterase C. difficile Tox B Gene 08/11/21 08/11/21 09:59 10:55 MCV MCH MCHC RDW Plt Count MPV Immature Gran % (Auto) Neut % (Auto) Lymph % (Auto) [place] % (Auto) Eos % (Auto) Baso % (Auto) Lymph # (Auto) [place] # (Auto) Eos # (Auto) Baso # (Auto) Abs Immat Gran (auto) Absolute Neuts (auto) Absolute Nucleated RBC Nucleated RBC % (auto) Neutrophils % (Manual) Band Neutrophils % Lymphocytes % (Manual) Monocytes % (Manual) Abs Neuts (Manual) Lymphocytes # (Manual) Monocytes # (Manual) Toxic Granulation Toxic Vacuolation Platelet Estimate Large Platelets Plt Morphology Comment RBC Morphology Polychromasia Macrocytosis [place] Cells Anion Gap Estim Creat Clear Calc Estimated GFR POC Glucose 86 Random Glucose Lactic Acid Lactic Acid F/U @ 2Hr Lactic Acid F/U @ 4Hr 2.5 H* Calcium Magnesium Total Bilirubin Direct Bilirubin AST ALT Alkaline Phosphatase Troponin I High Sens C-Reactive Protein Total Protein Albumin Procalcitonin Urine Color Urine Appearance Urine pH Ur Specific [place] Urine Protein Urine Glucose (UA) Urine Ketones Urine Blood Urine Nitrite Ur Leukocyte Esterase C. difficile Tox B Gene TTE (08/11/21) 1. Normal LV systolic function ? 2. Mildly dilated left atrium? 3. Normal cardiac valvular Dopplers? 4. Trivial pericardial effusion more prominent near the left ? ? ventricle? Microbiology Microbiology Results: Microbiology 08/11/21 01:50 Blood Culture - Preliminary Blood - Venous Prelim: GPC Gram Stain only 08/11/21 01:50 Blood Culture - Preliminary Blood - Venous Prelim: GPC Gram Stain only Assessment and Plan (1) Atrial fibrillation, new onset: Status: Acute Plan hospital d#3 66yo M with insulin-dep DM2, HTN, HLD, ASHLY not on CPAP presented to ED with back pain after falling 1 wk ago without LOC admitted for new-onset AF/RVR, hypoNa, EMIGDIO/CKD3 developed severe sepsis # severe sepsis # GPC bacteremia - d#1 vanco + ceftriaxone, follow speciation/susceptibilities, ID consult, surveillance BCx 08/13, CT A/P to eval for abd source # new-onset AF/RVR - off diltiazem drip and HR now 70s-80s; monitor for now - [id number] 3, started on apixaban - TTE with normal LVEF # EMIGDIO/CKD3 with hx of proteinuria - SCr stable. continue to hold furosemide, spironolactone + HCTZ. continue to hold losartan. continue IV fluids. Nephrology following # hypoNa - Na improving with IV fluids # troponin elevation - indeterminate/flat, likely due to sepsis # transaminasemia - alcoholic vs. septic hepatitis; monitor LFTs # thrombocytopenia - likely due to EtOH; monitor CBC # diarrhea - check Cdiff PCR; if negative, give loperamide # HLD - statin # HTN - hypotensive overnight due to sepsis. hold all antihypertensives (furosemide, spironolactone, HCTZ, losartan, metoprolol) # DM2 - hold MTF + basal insulin, give correction-dose lispro # excess EtOH intake - CARE Team + Addiction Med consults, monitor for withdrawal - will give IV thiamine and check B1 levels # recurrent falls/unsteady gait - PT consult # VTE ppx: apixaban In my clinical judgment, the patient requires continued hospitalization for the following reasons: IV ABX for bacteremia Quality Stroke Does the patient have a stroke diagnosis?: No VTE Prior VTE?: No VTE Risk Level:: Medical - moderate - high VTE Device Contraindication: Treatment Not Indicated VTE Drug Contraindication: N/A - Med Ordered
--- NOTE | 2021-08-11 15:37 | PC.NURSE ---
ALL LABS HAVE BEEN REPORT TO DR LOCK. L ACID 2.7 AND 2.5 ALSO +blood cultures. o2 sat has been 90% 3l. swallow eval done. bed mobility very poor. max assist of 2 oob to commode with difficultly required use of boaz steady. at 1545 bp of 94/53 reported to md. per family pt reported seeing things upside down
[2021-08-11 16:22] LABS: Glucose, Whole Blood 144 mg/dL (60-115)
[2021-08-11 16:23] LABS: Venous Blood Gas Refer to POC result
[2021-08-11 16:24] LABS: VBG Base Excess -8.9 mmol/L; VBG HCO3 15 mmol/L (22-26); VBG pCO2 29 mmHg; VBG pH 7.33 (7.32-7.43); VBG pO2 51 mmHg
[2021-08-11 16:27] LABS: Hemoglobin 11.4 g/dl (14.0-18.0); NRBC Pct Auto 0.8 /100WBC (0.0-0.2)
[2021-08-11 16:28] LABS: Ammonia 52 umol/L (13-55)
[2021-08-11 16:29] LABS: Hematocrit 33.4 % (42.0-52.0); Mean Corpuscular HGB Conc 34.1 g/dl (31.0-36.0); Mean Corpuscular Hemoglobin 29.9 pg (27.0-33.0); Mean Corpuscular Volume 87.7 fL (80.0-98.0); Mean Platelet Volume 14.2 fL (9.4-12.4); PLT CLUMP 1; Red Blood Count 3.81 X10*6/uL (4.60-5.80); Red Cell Distribution Width 14.2 % (11.0-16.0)
[2021-08-11] MEDS: cefTRIAXone sodium 1 GM in 0.9 % Sodium Chloride 50 ML IV (16:31)
[2021-08-11 16:32] LABS: PLT ABN DIST 1; Platelet Count 77 X10*3/uL (160-400)
[2021-08-11] MEDS: 0.9 % Sodium Chloride Flush 3 ML SYRINGE IVFLUSH (16:32)
[2021-08-11] MEDS: 0.9 % Sodium Chloride 1,000 ML 75 ML IVCONT (16:34)
[2021-08-11 16:53] LABS: Anion Gap 14 (12-20); Blood Urea Nitrogen 74 mg/dL (9-16); Calcium 7.6 mg/dL (8.4-10.2); Carbon Dioxide 16 mmol/L (22-29); Chloride 104 mmol/L (96-108); Creatinine Clr Calc Pharmacy 34.4; Estimated Glomerular Filt Rate 30; Glucose Random 139 mg/dL (60-115); Potassium 3.9 mmol/L (3.3-5.1); Sodium 130 mmol/L (135-145)
[2021-08-11 19:50] LABS: Glucose, Whole Blood 140 mg/dL (60-115)
[2021-08-11] MEDS: Atorvastatin Calcium 40 MG TABLET PO (20:18)
[2021-08-11] MEDS: Aspirin Enteric Coated 81 MG TABLET.DR PO (20:18)
[2021-08-12] VITALS (7 sets, daily range): BP systolic 100–143; BP diastolic 50–64; PULSE 62–79; RESP 19–30; TEMP 34.6–37.2; O2SAT 91–97
[2021-08-12] MEDS: 0.9 % Sodium Chloride Flush 3 ML SYRINGE IVFLUSH ×4 (01:35→23:41)
--- NOTE | 2021-08-12 03:18 | PC.NURSE ---
Pt very confused and disoriented. Pt asked for a shower, this RN explained that we are in the hospital and he is too weak to stand grinder the shower at this time. Pt responded with can I kill you? This RN responded with why would you say this or feel this way? and he said cause I want to. Dr. Woodward notified.
--- NOTE | 2021-08-12 03:38 | PM.EVENT ---
Event Note Date of Service: 08/12/21 Event Note: Homisidal ideation: Patient expressed homicidal ideation to the RN He mentioned to RN: said ?can I kill you? I said what did you say? He said ?kill you? I said why would you say that? And he goes ?cause I want to? Psych consult
[2021-08-12] MEDS: 0.9 % Sodium Chloride 1,000 ML 75 ML IVCONT (04:25)
[2021-08-12] MEDS: Acetaminophen 325 MG TABLET 650 MG PO (05:00)
[2021-08-12] MEDS: Omeprazole 20 MG CAPSULE.DR PO (05:10)
[2021-08-12 06:49] LABS: Hematocrit 34.1 % (42.0-52.0); Hemoglobin 11.6 g/dl (14.0-18.0); Mean Corpuscular Hemoglobin 29.9 pg (27.0-33.0); Mean Corpuscular Volume 87.9 fL (80.0-98.0); NRBC Pct Auto 1.1 /100WBC (0.0-0.2); Platelet Count 87 X10*3/uL (160-400); Red Blood Count 3.88 X10*6/uL (4.60-5.80); Red Cell Distribution Width 14.4 % (11.0-16.0); White Blood Count 18.5 X10*3/uL (4.8-10.8)
[2021-08-12 06:55] LABS: INTERNATIONAL NORM RATIO 2.4 (0.9-1.1); Prothrombin Time 27.7 SEC (9.9-13.0)
[2021-08-12 07:16] LABS: Vancomycin Random 14.3 mcg/mL (15-20)
[2021-08-12 07:23] LABS: Alanine Aminotransferase 66 U/L (0-40); Albumin Level 2.3 g/dL (3.5-5.0); Alkaline Phosphatase 123 U/L (39-117); Anion Gap 17 (12-20); Aspartate Amino Transferase 150 U/L (5-37); Blood Urea Nitrogen 113 mg/dL (9-16); Calcium 7.1 mg/dL (8.4-10.2); Carbon Dioxide 16 mmol/L (22-29); Chloride 102 mmol/L (96-108); Creatinine Clr Calc Pharmacy 33.5; Estimated Glomerular Filt Rate 29; Glucose Random 104 mg/dL (60-115); Potassium 3.9 mmol/L (3.3-5.1); Sodium 131 mmol/L (135-145); Total Protein 6.3 g/dL (6.5-8.0)
[2021-08-12 07:23] LABS: Glucose, Whole Blood 102 mg/dL (60-115)
[2021-08-12 07:28] LABS: HBS Num1 160.28 mIU/mL (0-7.99); HBc Num1 0.28 S/CO (0.00-0.79); HBsAGNum1 0.28 S/CO (0.00-0.99); HIV AB/AG Nonreactive (Nonreactive); Hepatitis B Core Antibody Nonreactive (Nonreactive); Hepatitis B Surface Antigen Negative (Negative); ~HepC Num1 0.16 S/CO (0.00-0.79); ~Hepatitis B Surface Antibody REACTIVE (Nonreactive); ~Hepatitis C Antibody Nonreactive (Nonreactive)
--- NOTE | 2021-08-12 07:38 | HE.PHANOTE ---
Patients level came back at 14.3, level was ~ 19.5 hrs post second part of loading dose. Adjusted time for vanco to be given to 1000, keeping 750 mg q24 h, predicted auc is 450, trough 14.6. next level is 08/13 @0800.
[2021-08-12] MEDS: Metoprolol Succinate ER 100 MG TAB.ER.24H PO (08:36)
[2021-08-12] MEDS: Thiamine HCL 500 MG in 0.9 % Sodium Chloride 100 ML 210 MG IV ×3 (08:36→21:17)
[2021-08-12] MEDS: Metoprolol Succinate ER 50 MG TAB.ER.24H PO (08:36)
[2021-08-12] MEDS: Apixaban 5 MG TABLET PO (08:36)
[2021-08-12] MEDS: Lidocaine 4 % Patch ADH..PATCH 1 PATCH TRANSDERMA (08:37)
--- NOTE | 2021-08-12 09:39 | PM.PNNEP ---
Subjective Subjective Date of Service: 08/12/21 Principal diagnosis: AF Interval history: Events noted Ill appearing Physical Exam Vital Signs: Vital Signs: Last Vital Signs Temp 98.2 F 08/12/21 04:00 Pulse 79 08/12/21 08:00 Resp 21 H 08/12/21 08:00 BP 100/50 L 08/12/21 08:00 Pulse Ox 93 08/12/21 08:00 O2 Del Method 08/12/21 08:00 O2 Flow Rate 5 08/12/21 08:00 BMI result Body Mass Index 29.7 Const: General: cooperative Neck: Neck: Yes supple Resp: Effort & Inspection: normal respiratory effort Auscultation: clear to auscultation bilaterally Cardio: Rate: regular rate and tachycardic Heart sounds: no murmurs GI: Palpation (GI): Soft to palpation and nontender Skin: General skin exam: no rashes or lesions noted Neuro: Cognition (Neuro): normal cognition Motor exam (neuro): 5/5 motor strength present throughout Objective Data Labs CBC & Chem 7: 08/12/21 06:07 08/12/21 06:07 Labs: Laboratory Results - last 24 hr 08/11/21 08/11/21 08/11/21 09:59 10:55 16:13 WBC 17.0 H RBC 3.81 L Hgb 11.4 L Hct 33.4 L MCV 87.7 MCH 29.9 MCHC 34.1 RDW 14.2 Plt Count 77 L MPV 14.2 H Absolute Nucleated RBC 0.130 H Nucleated RBC % (auto) 0.8 H PT INR VBG pH VBG pCO2 VBG pO2 VBG HCO3 VBG O2 Saturation VBG Base Excess Sodium Potassium Chloride Carbon Dioxide Anion Gap BUN Creatinine Estim Creat Clear Calc Estimated GFR POC Glucose 86 Random Glucose Lactic Acid F/U @ 4Hr 2.5 H* Calcium Total Bilirubin AST ALT Alkaline Phosphatase Ammonia Total Protein Albumin Random Vancomycin Hep Bs Antigen Hep Bs Antibody Hep B Core Total Ab Hepatitis C Ab (EIA) HIV 1&2 Ab/P24 Ag 4thGn 08/11/21 08/11/21 08/11/21 16:13 16:13 16:16 WBC RBC Hgb Hct MCV MCH MCHC RDW Plt Count MPV Absolute Nucleated RBC Nucleated RBC % (auto) PT INR VBG pH VBG pCO2 VBG pO2 VBG HCO3 VBG O2 Saturation VBG Base Excess Sodium 130 L Potassium 3.9 Chloride 104 Carbon Dioxide 16 L Anion Gap 14 BUN 74 H Creatinine 2.22 H Estim Creat Clear Calc 34.4 Estimated GFR 30 POC Glucose 144 H Random Glucose 139 H D Lactic Acid F/U @ 4Hr Calcium 7.6 L Total Bilirubin AST ALT Alkaline Phosphatase Ammonia 52 Total Protein Albumin Random Vancomycin Hep Bs Antigen Hep Bs Antibody Hep B Core Total Ab Hepatitis C Ab (EIA) HIV 1&2 Ab/P24 Ag 4thGn 08/11/21 08/11/21 08/12/21 16:19 19:47 06:07 WBC RBC Hgb Hct MCV MCH MCHC RDW Plt Count MPV Absolute Nucleated RBC Nucleated RBC % (auto) PT INR VBG pH 7.33 VBG pCO2 29 VBG pO2 51 VBG HCO3 15 L VBG O2 Saturation 73.0 VBG Base Excess -8.9 Sodium Potassium Chloride Carbon Dioxide Anion Gap BUN Creatinine Estim Creat Clear Calc Estimated GFR POC Glucose 140 H Random Glucose Lactic Acid F/U @ 4Hr Calcium Total Bilirubin AST ALT Alkaline Phosphatase Ammonia Total Protein Albumin Random Vancomycin 14.3 L Hep Bs Antigen Hep Bs Antibody Hep B Core Total Ab Hepatitis C Ab (EIA) HIV 1&2 Ab/P24 Ag 4thGn 08/12/21 08/12/21 08/12/21 06:07 06:07 06:07 WBC 18.5 H RBC 3.88 L Hgb 11.6 L Hct 34.1 L MCV 87.9 MCH 29.9 MCHC 34.0 RDW 14.4 Plt Count 87 L MPV Not Reportable Absolute Nucleated RBC 0.200 H Nucleated RBC % (auto) 1.1 H PT INR VBG pH VBG pCO2 VBG pO2 VBG HCO3 VBG O2 Saturation VBG Base Excess Sodium 131 L Potassium 3.9 Chloride 102 Carbon Dioxide 16 L Anion Gap 17 BUN 113 H D Creatinine 2.28 H Estim Creat Clear Calc 33.5 Estimated GFR 29 POC Glucose Random Glucose 104 Lactic Acid F/U @ 4Hr Calcium 7.1 L D Total Bilirubin 2.0 H AST 150 H ALT 66 H Alkaline Phosphatase 123 H D Ammonia Total Protein 6.3 L Albumin 2.3 L Random Vancomycin Hep Bs Antigen Negative Hep Bs Antibody REACTIVE Hep B Core Total Ab Nonreactive Hepatitis C Ab (EIA) Nonreactive HIV 1&2 Ab/P24 Ag 4thGn Nonreactive 08/12/21 08/12/21 06:07 07:08 WBC RBC Hgb Hct MCV MCH MCHC RDW Plt Count MPV Absolute Nucleated RBC Nucleated RBC % (auto) PT 27.7 H INR 2.4 H VBG pH VBG pCO2 VBG pO2 VBG HCO3 VBG O2 Saturation VBG Base Excess Sodium Potassium Chloride Carbon Dioxide Anion Gap BUN Creatinine Estim Creat Clear Calc Estimated GFR POC Glucose 102 Random Glucose Lactic Acid F/U @ 4Hr Calcium Total Bilirubin AST ALT Alkaline Phosphatase Ammonia Total Protein Albumin Random Vancomycin Hep Bs Antigen Hep Bs Antibody Hep B Core Total Ab Hepatitis C Ab (EIA) HIV 1&2 Ab/P24 Ag 4thGn Microbiology Microbiology Results: Microbiology 08/11/21 01:50 Blood - Venous Blood Culture - Preliminary Prelim: GPC Gram Stain only 08/11/21 01:50 Blood - Venous Blood Culture - Preliminary Prelim: GPC Gram Stain only Procedures Date of Service Date of Service: 08/12/21 Assessment & Plan Assessment and plan (1) Acute hyponatremia: Status: Acute (2) Acute kidney injury: Status: Acute Plan 1. Acute kidney injury superimposed on chronic kidney disease. 2. Hyponatremia. 3. Hyperkalemia. 4. Mild anemia with thrombocytopenia. 5. Low total CO2.? Metabolic acidosis versus respiratory alkalosis.? Elevated LFTs. 6. Hyponatremia is most likely due to hypovolemia and continued use of hydrochlorothiazide which can decrease free water clearance.? He does have hyperkalemia, which could be due to the combination of acute kidney injury and the continued use of spironolactone.? The acute kidney injury is mostly due to hypoperfusion; Low urine sodium supports this. thrombocytopenia, - No evidence of GN Probably progressed to Ischemic ATN from low BP ? ? Hold spironolactone, Lasix, and hydrochlorothiazide.? IV hydration - CHANGE to LR at 100 cc/hr due to acidosis Hold antihypertensive medications.? Avoid hypotension.? IftCO2 drops below 16, ADD NaHCO3 Continue to avoid nephrotoxic agents.? Watch Vanco levels Watch intake and output. Restrict PO water intake and watch Na Time Spent With Patient Time: Total time spent is greater than 50% in coordination of care (as documented) at patient's floor/unit and/or counseling patient: Progress Note: Quality Stroke Does the patient have a stroke diagnosis?: No
[2021-08-12] MEDS: vancomycin HCL 750 MG in 0.9 % Sodium Chloride 250 ML 265 MG IV (09:57)
[2021-08-12 10:21] LABS: OBS Int Ctl Valid YES; OBS1 POSITIVE (NEGATIVE)
[2021-08-12 11:09] LABS: Glucose, Whole Blood 87 mg/dL (60-115)
--- NOTE | 2021-08-12 11:49 | P.PNIM_ITS ---
Subjective Subjective Date of Service: 08/12/21 Interval History: confused at times, last night seemed to use homicidal language though currently denies no fever BCx growing Staph aureus BP + HR improved ongoing diarrhea Review of Systems Review of Systems: Yes all other systems are reviewed and are negative Physical Exam Vital Signs: Vital Signs: Last Vital Signs Temp 98.2 F 08/12/21 04:00 Pulse 79 08/12/21 08:00 Resp 21 H 08/12/21 08:00 BP 100/50 L 08/12/21 08:00 Pulse Ox 93 08/12/21 08:00 O2 Del Method 08/12/21 08:00 O2 Flow Rate 5 08/12/21 08:00 BMI result Body Mass Index 29.7 Gen: ill appearing HEENT: sclera anicteric, moist mucus membranes Neck: supple Lungs: clear to auscultation bilaterally Heart: irregularly irregular,, no murmurs Abd: soft, non-tender, non-distended Ext: no edema Skin: warm/well-perfused Neuro: alert and oriented x3, no focal findings, no asterixis Psych: appropriate affect Objective Data Active Medications Acetaminophen (Acetaminophen 325 Mg Tablet) 650 mg PO Q6H PRN PRN Reason: Pain, Mild (Pain Scale 1-3) Last Admin: 08/12/21 05:00 Dose: 650 mg Documented By: RAMON Aspirin (Aspirin Enteric Coated 81 Mg Tablet.Dr) 81 mg PO BEDTIME [facility] Last Admin: 08/11/21 20:18 Dose: 81 mg Documented By: MARIA ESTHER Atorvastatin Calcium (Atorvastatin Calcium 40 Mg Tablet) 40 mg PO BEDTIME [facility] Last Admin: 08/11/21 20:18 Dose: 40 mg Documented By: MARIA ESTHER Dextrose (Dextrose 50 % 25 Gm/50 Ml Syringe) 25 gm IVPUSH Q15M PRN; Protocol PRN Reason: per Hypoglycemia Standing Ord. Glucose (Glucose Gel 15 Gm Gel..Gram.) 15 gm PO Q15M PRN; Protocol PRN Reason: per Hypoglycemia Standing Ord. Sodium Chloride (Ns) 1,000 mls @ 100 mls/hr IVCONT .Q10H [facility] Last Admin: 08/12/21 04:25 Dose: 75 mls/hr Documented By: RAMON Diltiazem HCl 125 mg/ Sodium (Chloride) 125 mls @ 0 mls/hr IVCONT .Q0M [facility]; Protocol Last Titration: 08/10/21 20:18 Dose: 0 mg/hr, 0 mls/hr Documented By: RAMON Ceftriaxone Sodium 1 gm/ (Sodium Chloride) 50 mls @ 100 mls/hr IV Q24H [facility] Last Infusion: 08/11/21 17:24 Dose: 0 mls/hr Documented By: MARIA ESTHER Thiamine HCl 500 mg/ Sodium (Chloride) 105 mls @ 210 mls/hr IV TID [facility] Stop: 08/12/21 21:29 Last Infusion: 08/12/21 10:34 Dose: 0 mls/hr Documented By: ADY Thiamine HCl 100 mg/ Sodium (Chloride) 101 mls @ 202 mls/hr IV DAILY [facility] Vancomycin HCl 750 mg/ Sodium (Chloride) 265 mls @ 265 mls/hr IV Q24H [facility] Last Infusion: 08/12/21 11:33 Dose: 265 mls/hr Documented By: ADY Insulin Human Lispro (Insulin Lispro 100 Unit/Ml 3 Ml Vial) 0 unit SUBCUT QIDACHS [facility]; Protocol Last Admin: 08/12/21 11:32 Dose: Not Given Documented By: ADY Non-Admin Reason: No Insulin Coverage Lidocaine (Lidocaine 4 % Patch Adh..Patch) 1 patch TRANSDERMA DAILY [facility]; Protocol Last Admin: 08/12/21 08:37 Dose: 1 patch Documented By: ADY Loperamide HCl (Loperamide Hcl 2 Mg Capsule) 2 mg PO Q4H PRN PRN Reason: Diarrhea Last Admin: 08/11/21 09:21 Dose: 2 mg Documented By: VALENCIA Metoprolol Succinate (Metoprolol Succinate Er 100 Mg Tab.Er.24h) 100 mg PO DAILY [facility]; Protocol Last Admin: 08/12/21 08:36 Dose: 100 mg Documented By: ADY Metoprolol Succinate (Metoprolol Succinate Er 50 Mg Tab.Er.24h) 50 mg PO DAILY [facility]; Protocol Last Admin: 08/12/21 08:36 Dose: 50 mg Documented By: ADY Omeprazole (Omeprazole 20 Mg Capsule.Dr) 20 mg PO DAILY@0630 [facility] Last Admin: 08/12/21 05:10 Dose: 20 mg Documented By: RAMON Ondansetron HCl (Ondansetron Hcl 4 Mg/2 Ml Vial) 4 mg IVPUSH Q8H PRN PRN Reason: Nausea and Vomiting Pharmacy Consult (Consult Rx Vancomycin Dosing) 1 each MISCELLANE DAILY PRN PRN Reason: Consult order Pharmacy Consult (Consult Rx Vancomycin Dosing) 1 each MISCELLANE DAILY [facility] Sodium Chloride (0.9 % Sodium Chloride Flush 3 Ml Syringe) 3 ml IVFLUSH QSHIFT [facility] Last Admin: 08/12/21 08:37 Dose: 3 ml Documented By: ADY Labs CBC & Chem 7: 08/12/21 06:07 08/12/21 06:07 Labs: Laboratory Results - last 24 hr 08/11/21 08/11/21 08/11/21 16:13 16:13 16:13 MCV 87.7 MCH 29.9 MCHC 34.1 RDW 14.2 Plt Count 77 L MPV 14.2 H Absolute Nucleated RBC 0.130 H Nucleated RBC % (auto) 0.8 H PT INR VBG pH VBG pCO2 VBG pO2 VBG HCO3 VBG O2 Saturation VBG Base Excess Anion Gap 14 Estim Creat Clear Calc 34.4 Estimated GFR 30 POC Glucose Random Glucose 139 H D Calcium 7.6 L Total Bilirubin AST ALT Alkaline Phosphatase Ammonia 52 Total Protein Albumin Stool Occult Blood Random Vancomycin Hep Bs Antigen Hep Bs Antibody Hep B Core Total Ab Hepatitis C Ab (EIA) HIV 1&2 Ab/P24 Ag 4thGn 08/11/21 08/11/21 08/11/21 16:16 16:19 19:47 MCV MCH MCHC RDW Plt Count MPV Absolute Nucleated RBC Nucleated RBC % (auto) PT INR VBG pH 7.33 VBG pCO2 29 VBG pO2 51 VBG HCO3 15 L VBG O2 Saturation 73.0 VBG Base Excess -8.9 Anion Gap Estim Creat Clear Calc Estimated GFR POC Glucose 144 H 140 H Random Glucose Calcium Total Bilirubin AST ALT Alkaline Phosphatase Ammonia Total Protein Albumin Stool Occult Blood Random Vancomycin Hep Bs Antigen Hep Bs Antibody Hep B Core Total Ab Hepatitis C Ab (EIA) HIV 1&2 Ab/P24 Ag 4thGn 08/12/21 08/12/21 08/12/21 06:07 06:07 06:07 MCV 87.9 MCH 29.9 MCHC 34.0 RDW 14.4 Plt Count 87 L MPV Not Reportable Absolute Nucleated RBC 0.200 H Nucleated RBC % (auto) 1.1 H PT INR VBG pH VBG pCO2 VBG pO2 VBG HCO3 VBG O2 Saturation VBG Base Excess Anion Gap Estim Creat Clear Calc Estimated GFR POC Glucose Random Glucose Calcium Total Bilirubin AST ALT Alkaline Phosphatase Ammonia Total Protein Albumin Stool Occult Blood Random Vancomycin 14.3 L Hep Bs Antigen Negative Hep Bs Antibody REACTIVE Hep B Core Total Ab Nonreactive Hepatitis C Ab (EIA) Nonreactive HIV 1&2 Ab/P24 Ag 4thGn Nonreactive 08/12/21 08/12/21 08/12/21 06:07 06:07 07:08 MCV MCH MCHC RDW Plt Count MPV Absolute Nucleated RBC Nucleated RBC % (auto) PT 27.7 H INR 2.4 H VBG pH VBG pCO2 VBG pO2 VBG HCO3 VBG O2 Saturation VBG Base Excess Anion Gap 17 Estim Creat Clear Calc 33.5 Estimated GFR 29 POC Glucose 102 Random Glucose 104 Calcium 7.1 L D Total Bilirubin 2.0 H AST 150 H ALT 66 H Alkaline Phosphatase 123 H D Ammonia Total Protein 6.3 L Albumin 2.3 L Stool Occult Blood Random Vancomycin Hep Bs Antigen Hep Bs Antibody Hep B Core Total Ab Hepatitis C Ab (EIA) HIV 1&2 Ab/P24 Ag 4thGn 08/12/21 08/12/21 10:00 11:06 MCV MCH MCHC RDW Plt Count MPV Absolute Nucleated RBC Nucleated RBC % (auto) PT INR VBG pH VBG pCO2 VBG pO2 VBG HCO3 VBG O2 Saturation VBG Base Excess Anion Gap Estim Creat Clear Calc Estimated GFR POC Glucose 87 Random Glucose Calcium Total Bilirubin AST ALT Alkaline Phosphatase Ammonia Total Protein Albumin Stool Occult Blood POSITIVE Random Vancomycin Hep Bs Antigen Hep Bs Antibody Hep B Core Total Ab Hepatitis C Ab (EIA) HIV 1&2 Ab/P24 Ag 4thGn Impressions Abdomen/Pelvis CT 08/11/21 10:41 IMPRESSION: Cirrhotic-appearing liver. Small amount of ascites. Wall thickening of the colon question representing colitis versus changes related to liver disease. Bilateral lower lobe infiltrates, right greater than left and tiny bilateral pleural effusions. Fleischner guidelines were followed. Microbiology Microbiology Results: Microbiology 08/11/21 01:50 Blood Culture - Preliminary Blood - Venous Staphylococcus aureus 08/11/21 01:50 Blood Culture - Preliminary Blood - Venous Staphylococcus aureus Assessment and Plan (1) Atrial fibrillation, new onset: Status: Acute Plan hospital d#4 66yo M with insulin-dep DM2, HTN, HLD, ASHLY not on CPAP presented to ED with back pain after falling 1 wk ago without LOC admitted for new-onset AF/RVR, hypoNa, EMIGDIO/CKD3 developed severe sepsis found to have Staph aureus bacteremia new dx cirrhosis # severe sepsis # Staph aureus bacteremia - d#2 vanco + ceftriaxone, follow speciation/susceptibilities, ID consult pending, surveillance BCx tomorrow - no vegetation on TTE but consider GIL if BCx fails to clear # new-onset AF/RVR - off diltiazem drip and HR now 70s-80s on metoprolol succinate - [id number] 3, hold apixaban for now given concern for GIB - TTE with normal LVEF # septic encephalopathy - treat infection as above # EMIGDIO/CKD3 with hx of proteinuria - SCr stable. continue to hold furosemide, spironolactone + HCTZ. continue to hold losartan. continue IV fluids- changed to LR given acidosis. Nephrology following. add NaHCO3 if HCO3 drops below 16 # hypoNa - hypovolemic; improving # troponin elevation - indeterminate/flat, likely due to sepsis # new dx cirrhosis - likely EtOH. HBV immune, HCV negative. consult GI nadja with FOBT+ though HB stable # transaminasemia - alcoholic vs. septic hepatitis; monitor LFTs # thrombocytopenia - likely due to EtOH + cirrhosis; monitor CBC # diarrhea - prn loperamide # HLD - statin # HTN - hypotensive 2 nights ago due to sepsis. hold all antihypertensives (furosemide, spironolactone, HCTZ, losartan) except metoprolol for rate control # DM2 - hold MTF + basal insulin, give correction-dose lispro # excess EtOH intake - CARE Team + Addiction Med consults, monitor for withdrawal - will give IV thiamine and check B1 levels # recurrent falls/unsteady gait - PT consult: will need STR # VTE ppx: apixaban In my clinical judgment, the patient requires continued hospitalization for the following reasons: IV ABX for bacteremia Quality Stroke Does the patient have a stroke diagnosis?: No VTE Prior VTE?: No VTE Risk Level:: Medical - moderate - high VTE Device Contraindication: Treatment Not Indicated VTE Drug Contraindication: N/A - Med Ordered
[2021-08-12] MEDS: Lactated Ringers 1,000 ML 100 ML IVCONT (12:18)
--- NOTE | 2021-08-12 12:31 | MHC.SLORD ---
Speech Language Pathology Order Status: Attempted to see Pt over lunch, brought food tray in for Patient and sent it up. Patient presented as markedly confused and mildly agitated: believed his mother was in hospital and he needed to leave to see her, thought he was at an appointment, presented as annoyed he couldn't leave. Pt offered lunch, with tray set up for him, but he refused, appeared to fall asleep. Will continue to follow for toleration of diet.
--- NOTE | 2021-08-12 15:33 | PM.EVENT ---
Event Note Date of Service: 08/12/21 Event Note: GI Consult dictated elevated lfts with ct findings of cirrhosis. h/o alcohol use in past, lft elevation pattern is c/w this also. ultrasound and further metabolic/autoimmune markers ordered.
[2021-08-12 15:54] LABS: Glucose, Whole Blood 84 mg/dL (60-115)
--- NOTE | 2021-08-12 16:34 | P.CNPS_ITS ---
History of Present Illness Date of Service: 08/11/21 Chief Complaint: new onset atrial fibrillation moni Reason for Consult: HI statements Requesting physician: Venita Giang Sources of Information: patient interviewed, chart reviewed and crisis/core team assessment reviewed HPI Narrative: Levi is a 66 y.o. Male who has a past medical history of insulin dependent diabetes, hypertension, hyperlipidemia, chronic kidney disease stage 3, echocardiogram June 12 showed EF 55-60%. He came to ER on 08/09/2021 due to upper back and shoulder pain x1 week, has had multiple falls without head in jury, complaining of constant pain and headache. In the ED, pt found to have atrial fibrillation with rapid ventricular response, given IV diltiazem. Pt was admitted to [facility] for further workup of atrial fibrillation with RVR acute on chronic kidney disease, mild hyponatremia. Pr has been a chronic alcohol abuser, he drank 8 beers over the weekend. Over the course of hospitalization, pt was found to have elevated LFTs / lipase and CT showed findings of cirrhosis. Psych consult requested by overnight hospitalist, as pt reportedly made homicidal statements to his RN. Per note, pt said ?can I kill you? and when asked what he said, he repeated ?kill you? and when asked what prompted him to say this, pt replied ?cause I want to.? I evaluated the pt today, however pt is not oriented, he appears delirious, confused. The patient's family was in the room and they denied patient ever expressing homicidal statements before. They deny patient has a past like yatrik history. no history of assaultive behaviors. the family have no imminent safety concerns. Her patients RN he was pretty Lucid when she came on shift this morning however now he appears delirious. per patient family has never been in the hospital before and his agitation may be due to the constraints of being a patient in the hospital.? Past Psychiatric History: Denies Medical Evaluation Reviewed: Yes [facility] Medical History Allergic rhinitis Erectile dysfunction Obstructive sleep apnea Retinopathy Tubular adenoma Vitamin D deficiency Surgical History History of surgical procedure on eye proper using laser Hx of cataract surgery Hx of cholecystectomy Hx of colonoscopy with polypectomy Diagnostics Vital Signs (24Hr): Vital Signs - 24 hr 08/11/21 19:12 08/11/21 23:20 08/12/21 04:00 Temperature 98.6 F 98.2 F Pulse Rate 76 83 69 Respiratory Rate 18 20 20 Blood Pressure 119/56 L 146/67 H 113/64 Pulse Oximetry 91 L 92 93 Oxygen Delivery Method Nasal Cannula Nasal Cannula Nasal Cannula Oxygen Flow Rate 5 5 5 08/12/21 08:00 08/12/21 12:00 08/12/21 15:43 Temperature 94.3 F L 98.9 F Pulse Rate 79 62 67 Respiratory Rate 21 H 30 H 19 Blood Pressure 100/50 L 125/59 L 143/62 H Pulse Oximetry 93 91 L 97 Oxygen Delivery Method Nasal Cannula Nasal Cannula Nasal Cannula Oxygen Flow Rate 5 5 5 BMI result Body Mass Index 29.7 Labs Results: 08/13/21 08:09 08/13/21 08:09 Labs: Laboratory Results - last 48 hr 08/10/21 08/10/21 08/11/21 15:00 20:22 00:00 WBC 19.3 H RBC 4.04 L Hgb 12.1 L Hct 35.4 L MCV 87.6 MCH 30.0 MCHC 34.2 RDW 13.6 Plt Count 82 L D MPV 13.2 H Immature Gran % (Auto) Cancelled Neut % (Auto) Cancelled Lymph % (Auto) Cancelled [place] % (Auto) Cancelled Eos % (Auto) Cancelled Baso % (Auto) Cancelled Lymph # (Auto) Cancelled [place] # (Auto) Cancelled Eos # (Auto) Cancelled Baso # (Auto) Cancelled Abs Immat Gran (auto) Cancelled Absolute Neuts (auto) Cancelled Absolute Nucleated RBC 0.120 H Nucleated RBC % (auto) 0.6 H Neutrophils % (Manual) 70 Band Neutrophils % 9 H Lymphocytes % (Manual) 9 L Monocytes % (Manual) 12 H Abs Neuts (Manual) 15.2 H Lymphocytes # (Manual) 1.7 Monocytes # (Manual) 2.3 H Toxic Granulation PRESENT Toxic Vacuolation PRESENT Platelet Estimate DECREASED Large Platelets PRESENT Plt Morphology Comment NOTED RBC Morphology NOTED Polychromasia 1+ (0-2) Macrocytosis 1+ (5-14) [place] Cells 1+ (0-2) PT INR VBG pH VBG pCO2 VBG pO2 VBG HCO3 VBG O2 Saturation VBG Base Excess Sodium Potassium Chloride Carbon Dioxide Anion Gap BUN Creatinine Estim Creat Clear Calc Estimated GFR POC Glucose 167 H Random Glucose Lactic Acid Lactic Acid F/U @ 2Hr Lactic Acid F/U @ 4Hr Calcium Magnesium Total Bilirubin Direct Bilirubin AST ALT Alkaline Phosphatase Ammonia Troponin I High Sens C-Reactive Protein Total Protein Albumin Procalcitonin Urine Color Urine Appearance Urine pH Ur Specific [place] Urine Protein Urine Glucose (UA) Urine Ketones Urine Blood Urine Nitrite Ur Leukocyte Esterase Stool Occult Blood Random Vancomycin C. difficile Tox B Gene NEGATIVE Hep Bs Antigen Hep Bs Antibody Hep B Core Total Ab Hepatitis C Ab (EIA) HIV 1&2 Ab/P24 Ag 4thGn 08/11/21 08/11/21 08/11/21 00:00 01:50 03:36 WBC RBC Hgb Hct MCV MCH MCHC RDW Plt Count MPV Immature Gran % (Auto) Neut % (Auto) Lymph % (Auto) [place] % (Auto) Eos % (Auto) Baso % (Auto) Lymph # (Auto) [place] # (Auto) Eos # (Auto) Baso # (Auto) Abs Immat Gran (auto) Absolute Neuts (auto) Absolute Nucleated RBC Nucleated RBC % (auto) Neutrophils % (Manual) Band Neutrophils % Lymphocytes % (Manual) Monocytes % (Manual) Abs Neuts (Manual) Lymphocytes # (Manual) Monocytes # (Manual) Toxic Granulation Toxic Vacuolation Platelet Estimate Large Platelets Plt Morphology Comment RBC Morphology Polychromasia Macrocytosis [place] Cells PT INR VBG pH VBG pCO2 VBG pO2 VBG HCO3 VBG O2 Saturation VBG Base Excess Sodium Potassium Chloride Carbon Dioxide Anion Gap BUN Creatinine Estim Creat Clear Calc Estimated GFR POC Glucose Random Glucose Lactic Acid 5.4 H* Lactic Acid F/U @ 2Hr TNP Lactic Acid F/U @ 4Hr Calcium Magnesium Total Bilirubin Direct Bilirubin AST ALT Alkaline Phosphatase Ammonia Troponin I High Sens 60.5 H D C-Reactive Protein Total Protein Albumin Procalcitonin Urine Color Urine Appearance Urine pH Ur Specific [place] Urine Protein Urine Glucose (UA) Urine Ketones Urine Blood Urine Nitrite Ur Leukocyte Esterase Stool Occult Blood Random Vancomycin C. difficile Tox B Gene Hep Bs Antigen Hep Bs Antibody Hep B Core Total Ab Hepatitis C Ab (EIA) HIV 1&2 Ab/P24 Ag 4thGn 08/11/21 08/11/21 08/11/21 04:25 04:25 04:25 WBC 16.8 H RBC 3.69 L Hgb 11.0 L Hct 32.8 L MCV 88.9 MCH 29.8 MCHC 33.5 RDW 13.9 Plt Count 82 L MPV 13.5 H Immature Gran % (Auto) Neut % (Auto) Lymph % (Auto) [place] % (Auto) Eos % (Auto) Baso % (Auto) Lymph # (Auto) [place] # (Auto) Eos # (Auto) Baso # (Auto) Abs Immat Gran (auto) Absolute Neuts (auto) Absolute Nucleated RBC 0.080 H Nucleated RBC % (auto) 0.5 H Neutrophils % (Manual) Band Neutrophils % Lymphocytes % (Manual) Monocytes % (Manual) Abs Neuts (Manual) Lymphocytes # (Manual) Monocytes # (Manual) Toxic Granulation Toxic Vacuolation Platelet Estimate Large Platelets Plt Morphology Comment RBC Morphology Polychromasia Macrocytosis [place] Cells PT INR VBG pH VBG pCO2 VBG pO2 VBG HCO3 VBG O2 Saturation VBG Base Excess Sodium 131 L Potassium 3.9 Chloride 103 Carbon Dioxide 16 L Anion Gap 16 BUN 98 H Creatinine 2.39 H Estim Creat Clear Calc 32.0 Estimated GFR 27 POC Glucose Random Glucose 102 D Lactic Acid 2.9 H* Lactic Acid F/U @ 2Hr Lactic Acid F/U @ 4Hr Calcium 7.5 L D Magnesium 1.8 Total Bilirubin 1.9 H Direct Bilirubin 1.2 H AST 134 H ALT 59 H Alkaline Phosphatase 77 D Ammonia Troponin I High Sens C-Reactive Protein 32.45 H Total Protein 6.0 L Albumin 2.3 L Procalcitonin Urine Color Urine Appearance Urine pH Ur Specific [place] Urine Protein Urine Glucose (UA) Urine Ketones Urine Blood Urine Nitrite Ur Leukocyte Esterase Stool Occult Blood Random Vancomycin C. difficile Tox B Gene Hep Bs Antigen Hep Bs Antibody Hep B Core Total Ab Hepatitis C Ab (EIA) HIV 1&2 Ab/P24 Ag 4thGn 08/11/21 08/11/21 08/11/21 04:25 06:32 07:30 WBC RBC Hgb Hct MCV MCH MCHC RDW Plt Count MPV Immature Gran % (Auto) Neut % (Auto) Lymph % (Auto) [place] % (Auto) Eos % (Auto) Baso % (Auto) Lymph # (Auto) [place] # (Auto) Eos # (Auto) Baso # (Auto) Abs Immat Gran (auto) Absolute Neuts (auto) Absolute Nucleated RBC Nucleated RBC % (auto) Neutrophils % (Manual) Band Neutrophils % Lymphocytes % (Manual) Monocytes % (Manual) Abs Neuts (Manual) Lymphocytes # (Manual) Monocytes # (Manual) Toxic Granulation Toxic Vacuolation Platelet Estimate Large Platelets Plt Morphology Comment RBC Morphology Polychromasia Macrocytosis [place] Cells PT INR VBG pH VBG pCO2 VBG pO2 VBG HCO3 VBG O2 Saturation VBG Base Excess Sodium Potassium Chloride Carbon Dioxide Anion Gap BUN Creatinine Estim Creat Clear Calc Estimated GFR POC Glucose Random Glucose Lactic Acid Lactic Acid F/U @ 2Hr Lactic Acid F/U @ 4Hr Calcium Magnesium Total Bilirubin Direct Bilirubin AST ALT Alkaline Phosphatase Ammonia Troponin I High Sens 52.7 H C-Reactive Protein Total Protein Albumin Procalcitonin 7.68 Urine Color YELLOW Urine Appearance CLEAR Urine pH 5.0 Ur Specific [place] >= 1.030 H Urine Protein TRACE Urine Glucose (UA) NEG Urine Ketones NEG Urine Blood NEG Urine Nitrite NEG Ur Leukocyte Esterase NEG Stool Occult Blood Random Vancomycin C. difficile Tox B Gene Hep Bs Antigen Hep Bs Antibody Hep B Core Total Ab Hepatitis C Ab (EIA) HIV 1&2 Ab/P24 Ag 4thGn 08/11/21 08/11/21 08/11/21 07:30 07:51 09:59 WBC RBC Hgb Hct MCV MCH MCHC RDW Plt Count MPV Immature Gran % (Auto) Neut % (Auto) Lymph % (Auto) [place] % (Auto) Eos % (Auto) Baso % (Auto) Lymph # (Auto) [place] # (Auto) Eos # (Auto) Baso # (Auto) Abs Immat Gran (auto) Absolute Neuts (auto) Absolute Nucleated RBC Nucleated RBC % (auto) Neutrophils % (Manual) Band Neutrophils % Lymphocytes % (Manual) Monocytes % (Manual) Abs Neuts (Manual) Lymphocytes # (Manual) Monocytes # (Manual) Toxic Granulation Toxic Vacuolation Platelet Estimate Large Platelets Plt Morphology Comment RBC Morphology Polychromasia Macrocytosis [place] Cells PT INR VBG pH VBG pCO2 VBG pO2 VBG HCO3 VBG O2 Saturation VBG Base Excess Sodium Potassium Chloride Carbon Dioxide Anion Gap BUN Creatinine Estim Creat Clear Calc Estimated GFR POC Glucose 93 Random Glucose Lactic Acid Lactic Acid F/U @ 2Hr 2.7 H* Lactic Acid F/U @ 4Hr 2.5 H* Calcium Magnesium Total Bilirubin Direct Bilirubin AST ALT Alkaline Phosphatase Ammonia Troponin I High Sens C-Reactive Protein Total Protein Albumin Procalcitonin Urine Color Urine Appearance Urine pH Ur Specific [place] Urine Protein Urine Glucose (UA) Urine Ketones Urine Blood Urine Nitrite Ur Leukocyte Esterase Stool Occult Blood Random Vancomycin C. difficile Tox B Gene Hep Bs Antigen Hep Bs Antibody Hep B Core Total Ab Hepatitis C Ab (EIA) HIV 1&2 Ab/P24 Ag 4thGn 08/11/21 08/11/21 08/11/21 10:55 16:13 16:13 WBC 17.0 H RBC 3.81 L Hgb 11.4 L Hct 33.4 L MCV 87.7 MCH 29.9 MCHC 34.1 RDW 14.2 Plt Count 77 L MPV 14.2 H Immature Gran % (Auto) Neut % (Auto) Lymph % (Auto) [place] % (Auto) Eos % (Auto) Baso % (Auto) Lymph # (Auto) [place] # (Auto) Eos # (Auto) Baso # (Auto) Abs Immat Gran (auto) Absolute Neuts (auto) Absolute Nucleated RBC 0.130 H Nucleated RBC % (auto) 0.8 H Neutrophils % (Manual) Band Neutrophils % Lymphocytes % (Manual) Monocytes % (Manual) Abs Neuts (Manual) Lymphocytes # (Manual) Monocytes # (Manual) Toxic Granulation Toxic Vacuolation Platelet Estimate Large Platelets Plt Morphology Comment RBC Morphology Polychromasia Macrocytosis [place] Cells PT INR VBG pH VBG pCO2 VBG pO2 VBG HCO3 VBG O2 Saturation VBG Base Excess Sodium Potassium Chloride Carbon Dioxide Anion Gap BUN Creatinine Estim Creat Clear Calc Estimated GFR POC Glucose 86 Random Glucose Lactic Acid Lactic Acid F/U @ 2Hr Lactic Acid F/U @ 4Hr Calcium Magnesium Total Bilirubin Direct Bilirubin AST ALT Alkaline Phosphatase Ammonia 52 Troponin I High Sens C-Reactive Protein Total Protein Albumin Procalcitonin Urine Color Urine Appearance Urine pH Ur Specific [place] Urine Protein Urine Glucose (UA) Urine Ketones Urine Blood Urine Nitrite Ur Leukocyte Esterase Stool Occult Blood Random Vancomycin C. difficile Tox B Gene Hep Bs Antigen Hep Bs Antibody Hep B Core Total Ab Hepatitis C Ab (EIA) HIV 1&2 Ab/P24 Ag 4thGn 08/11/21 08/11/21 08/11/21 16:13 16:16 16:19 WBC RBC Hgb Hct MCV MCH MCHC RDW Plt Count MPV Immature Gran % (Auto) Neut % (Auto) Lymph % (Auto) [place] % (Auto) Eos % (Auto) Baso % (Auto) Lymph # (Auto) [place] # (Auto) Eos # (Auto) Baso # (Auto) Abs Immat Gran (auto) Absolute Neuts (auto) Absolute Nucleated RBC Nucleated RBC % (auto) Neutrophils % (Manual) Band Neutrophils % Lymphocytes % (Manual) Monocytes % (Manual) Abs Neuts (Manual) Lymphocytes # (Manual) Monocytes # (Manual) Toxic Granulation Toxic Vacuolation Platelet Estimate Large Platelets Plt Morphology Comment RBC Morphology Polychromasia Macrocytosis [place] Cells PT INR VBG pH 7.33 VBG pCO2 29 VBG pO2 51 VBG HCO3 15 L VBG O2 Saturation 73.0 VBG Base Excess -8.9 Sodium 130 L Potassium 3.9 Chloride 104 Carbon Dioxide 16 L Anion Gap 14 BUN 74 H Creatinine 2.22 H Estim Creat Clear Calc 34.4 Estimated GFR 30 POC Glucose 144 H Random Glucose 139 H D Lactic Acid Lactic Acid F/U @ 2Hr Lactic Acid F/U @ 4Hr Calcium 7.6 L Magnesium Total Bilirubin Direct Bilirubin AST ALT Alkaline Phosphatase Ammonia Troponin I High Sens C-Reactive Protein Total Protein Albumin Procalcitonin Urine Color Urine Appearance Urine pH Ur Specific [place] Urine Protein Urine Glucose (UA) Urine Ketones Urine Blood Urine Nitrite Ur Leukocyte Esterase Stool Occult Blood Random Vancomycin C. difficile Tox B Gene Hep Bs Antigen Hep Bs Antibody Hep B Core Total Ab Hepatitis C Ab (EIA) HIV 1&2 Ab/P24 Ag 4thGn 08/11/21 08/12/21 08/12/21 19:47 06:07 06:07 WBC RBC Hgb Hct MCV MCH MCHC RDW Plt Count MPV Immature Gran % (Auto) Neut % (Auto) Lymph % (Auto) [place] % (Auto) Eos % (Auto) Baso % (Auto) Lymph # (Auto) [place] # (Auto) Eos # (Auto) Baso # (Auto) Abs Immat Gran (auto) Absolute Neuts (auto) Absolute Nucleated RBC Nucleated RBC % (auto) Neutrophils % (Manual) Band Neutrophils % Lymphocytes % (Manual) Monocytes % (Manual) Abs Neuts (Manual) Lymphocytes # (Manual) Monocytes # (Manual) Toxic Granulation Toxic Vacuolation Platelet Estimate Large Platelets Plt Morphology Comment RBC Morphology Polychromasia Macrocytosis [place] Cells PT INR VBG pH VBG pCO2 VBG pO2 VBG HCO3 VBG O2 Saturation VBG Base Excess Sodium Potassium Chloride Carbon Dioxide Anion Gap BUN Creatinine Estim Creat Clear Calc Estimated GFR POC Glucose 140 H Random Glucose Lactic Acid Lactic Acid F/U @ 2Hr Lactic Acid F/U @ 4Hr Calcium Magnesium Total Bilirubin Direct Bilirubin AST ALT Alkaline Phosphatase Ammonia Troponin I High Sens C-Reactive Protein Total Protein Albumin Procalcitonin Urine Color Urine Appearance Urine pH Ur Specific [place] Urine Protein Urine Glucose (UA) Urine Ketones Urine Blood Urine Nitrite Ur Leukocyte Esterase Stool Occult Blood Random Vancomycin 14.3 L C. difficile Tox B Gene Hep Bs Antigen Negative Hep Bs Antibody REACTIVE Hep B Core Total Ab Nonreactive Hepatitis C Ab (EIA) Nonreactive HIV 1&2 Ab/P24 Ag 4thGn Nonreactive 08/12/21 08/12/21 08/12/21 06:07 06:07 06:07 WBC 18.5 H RBC 3.88 L Hgb 11.6 L Hct 34.1 L MCV 87.9 MCH 29.9 MCHC 34.0 RDW 14.4 Plt Count 87 L MPV Not Reportable Immature Gran % (Auto) Neut % (Auto) Lymph % (Auto) [place] % (Auto) Eos % (Auto) Baso % (Auto) Lymph # (Auto) [place] # (Auto) Eos # (Auto) Baso # (Auto) Abs Immat Gran (auto) Absolute Neuts (auto) Absolute Nucleated RBC 0.200 H Nucleated RBC % (auto) 1.1 H Neutrophils % (Manual) Band Neutrophils % Lymphocytes % (Manual) Monocytes % (Manual) Abs Neuts (Manual) Lymphocytes # (Manual) Monocytes # (Manual) Toxic Granulation Toxic Vacuolation Platelet Estimate Large Platelets Plt Morphology Comment RBC Morphology Polychromasia Macrocytosis [place] Cells PT 27.7 H INR 2.4 H VBG pH VBG pCO2 VBG pO2 VBG HCO3 VBG O2 Saturation VBG Base Excess Sodium 131 L Potassium 3.9 Chloride 102 Carbon Dioxide 16 L Anion Gap 17 BUN 113 H D Creatinine 2.28 H Estim Creat Clear Calc 33.5 Estimated GFR 29 POC Glucose Random Glucose 104 Lactic Acid Lactic Acid F/U @ 2Hr Lactic Acid F/U @ 4Hr Calcium 7.1 L D Magnesium Total Bilirubin 2.0 H Direct Bilirubin AST 150 H ALT 66 H Alkaline Phosphatase 123 H D Ammonia Troponin I High Sens C-Reactive Protein Total Protein 6.3 L Albumin 2.3 L Procalcitonin Urine Color Urine Appearance Urine pH Ur Specific [place] Urine Protein Urine Glucose (UA) Urine Ketones Urine Blood Urine Nitrite Ur Leukocyte Esterase Stool Occult Blood Random Vancomycin C. difficile Tox B Gene Hep Bs Antigen Hep Bs Antibody Hep B Core Total Ab Hepatitis C Ab (EIA) HIV 1&2 Ab/P24 Ag 4thGn 08/12/21 08/12/21 08/12/21 07:08 10:00 11:06 WBC RBC Hgb Hct MCV MCH MCHC RDW Plt Count MPV Immature Gran % (Auto) Neut % (Auto) Lymph % (Auto) [place] % (Auto) Eos % (Auto) Baso % (Auto) Lymph # (Auto) [place] # (Auto) Eos # (Auto) Baso # (Auto) Abs Immat Gran (auto) Absolute Neuts (auto) Absolute Nucleated RBC Nucleated RBC % (auto) Neutrophils % (Manual) Band Neutrophils % Lymphocytes % (Manual) Monocytes % (Manual) Abs Neuts (Manual) Lymphocytes # (Manual) Monocytes # (Manual) Toxic Granulation Toxic Vacuolation Platelet Estimate Large Platelets Plt Morphology Comment RBC Morphology Polychromasia Macrocytosis [place] Cells PT INR VBG pH VBG pCO2 VBG pO2 VBG HCO3 VBG O2 Saturation VBG Base Excess Sodium Potassium Chloride Carbon Dioxide Anion Gap BUN Creatinine Estim Creat Clear Calc Estimated GFR POC Glucose 102 87 Random Glucose Lactic Acid Lactic Acid F/U @ 2Hr Lactic Acid F/U @ 4Hr Calcium Magnesium Total Bilirubin Direct Bilirubin AST ALT Alkaline Phosphatase Ammonia Troponin I High Sens C-Reactive Protein Total Protein Albumin Procalcitonin Urine Color Urine Appearance Urine pH Ur Specific [place] Urine Protein Urine Glucose (UA) Urine Ketones Urine Blood Urine Nitrite Ur Leukocyte Esterase Stool Occult Blood POSITIVE Random Vancomycin C. difficile Tox B Gene Hep Bs Antigen Hep Bs Antibody Hep B Core Total Ab Hepatitis C Ab (EIA) HIV 1&2 Ab/P24 Ag 4thGn 08/12/21 15:37 WBC RBC Hgb Hct MCV MCH MCHC RDW Plt Count MPV Immature Gran % (Auto) Neut % (Auto) Lymph % (Auto) [place] % (Auto) Eos % (Auto) Baso % (Auto) Lymph # (Auto) [place] # (Auto) Eos # (Auto) Baso # (Auto) Abs Immat Gran (auto) Absolute Neuts (auto) Absolute Nucleated RBC Nucleated RBC % (auto) Neutrophils % (Manual) Band Neutrophils % Lymphocytes % (Manual) Monocytes % (Manual) Abs Neuts (Manual) Lymphocytes # (Manual) Monocytes # (Manual) Toxic Granulation Toxic Vacuolation Platelet Estimate Large Platelets Plt Morphology Comment RBC Morphology Polychromasia Macrocytosis [place] Cells PT INR VBG pH VBG pCO2 VBG pO2 VBG HCO3 VBG O2 Saturation VBG Base Excess Sodium Potassium Chloride Carbon Dioxide Anion Gap BUN Creatinine Estim Creat Clear Calc Estimated GFR POC Glucose 84 Random Glucose Lactic Acid Lactic Acid F/U @ 2Hr Lactic Acid F/U @ 4Hr Calcium Magnesium Total Bilirubin Direct Bilirubin AST ALT Alkaline Phosphatase Ammonia Troponin I High Sens C-Reactive Protein Total Protein Albumin Procalcitonin Urine Color Urine Appearance Urine pH Ur Specific [place] Urine Protein Urine Glucose (UA) Urine Ketones Urine Blood Urine Nitrite Ur Leukocyte Esterase Stool Occult Blood Random Vancomycin C. difficile Tox B Gene Hep Bs Antigen Hep Bs Antibody Hep B Core Total Ab Hepatitis C Ab (EIA) HIV 1&2 Ab/P24 Ag 4thGn Imaging Radiology Impressions: ITS Impressions Cervical Spine CT 08/09/21 04:36 IMPRESSION: No acute intracranial pathology. No cervical spine fracture or malalignment. Head CT 08/09/21 04:36 IMPRESSION: No acute intracranial pathology. No cervical spine fracture or malalignment. Chest X-Ray 08/09/21 04:48 IMPRESSION: Unremarkable examination. Chest X-Ray 08/11/21 01:30 IMPRESSION: Unremarkable examination. Abdomen/Pelvis CT 08/11/21 10:41 IMPRESSION: Cirrhotic-appearing liver. Small amount of ascites. Wall thickening of the colon question representing colitis versus changes related to liver disease. Bilateral lower lobe infiltrates, right greater than left and tiny bilateral pleural effusions. Fleischner guidelines were followed. Mental Status Exam Mental Status Exam Narrative: A but not oriented x 3. He is in hospital attire, okay grooming. Poor eye contact, inattentive. Difficult to engage but calm. Denies SI/SIB/HI upon inquiry. Denies A/VH or delusional thought content. Insight/ Judgment is poor. Medications Medications Current Medications Acetaminophen (Acetaminophen 325 Mg Tablet) 650 mg PO Q6H PRN PRN Reason: Pain, Mild (Pain Scale 1-3) Last Admin: 08/12/21 05:00 Dose: 650 mg Aspirin (Aspirin Enteric Coated 81 Mg Tablet.) 81 mg PO BEDTIME [facility] Last Admin: 08/11/21 20:18 Dose: 81 mg Atorvastatin Calcium (Atorvastatin Calcium 40 Mg Tablet) 40 mg PO BEDTIME [facility] Last Admin: 08/11/21 20:18 Dose: 40 mg Dextrose (Dextrose 50 % 25 Gm/50 Ml Syringe) 25 gm IVPUSH Q15M PRN; Protocol PRN Reason: per Hypoglycemia Standing Ord. Glucose (Glucose Gel 15 Gm Gel..Gram.) 15 gm PO Q15M PRN; Protocol PRN Reason: per Hypoglycemia Standing Ord. Diltiazem HCl 125 mg/ Sodium (Chloride) 125 mls @ 0 mls/hr IVCONT .Q0M [facility]ENG; Protocol Last Titration: 08/10/21 20:18 Dose: 0 mg/hr, 0 mls/hr Ceftriaxone Sodium 1 gm/ (Sodium Chloride) 50 mls @ 100 mls/hr IV Q24H [facility]ENG Last Infusion: 08/11/21 17:24 Dose: Infused Thiamine HCl 500 mg/ Sodium (Chloride) 105 mls @ 210 mls/hr IV TID MENG Stop: 08/12/21 21:29 Last Admin: 08/12/21 14:32 Dose: 210 mls/hr Thiamine HCl 100 mg/ Sodium (Chloride) 101 mls @ 202 mls/hr IV DAILY [facility]ENG Vancomycin HCl 750 mg/ Sodium (Chloride) 265 mls @ 265 mls/hr IV Q24H [facility] Last Infusion: 08/12/21 11:33 Dose: Infused Lactated Ringer's (Lr) 1,000 mls @ 100 mls/hr IVCONT .Q10H [facility] Last Admin: 08/12/21 12:18 Dose: 100 mls/hr Insulin Human Lispro (Insulin Lispro 100 Unit/Ml 3 Ml Vial) 0 unit SUBCUT QIDACHS [facility]; Protocol Last Admin: 08/12/21 11:32 Dose: Not Given Lidocaine (Lidocaine 4 % Patch Adh..Patch) 1 patch TRANSDERMA DAILY [facility]; Protocol Last Admin: 08/12/21 08:37 Dose: 1 patch Loperamide HCl (Loperamide Hcl 2 Mg Capsule) 2 mg PO Q4H PRN PRN Reason: Diarrhea Last Admin: 08/11/21 09:21 Dose: 2 mg Metoprolol Succinate (Metoprolol Succinate Er 100 Mg Tab.Er.24h) 100 mg PO DAILY [facility]; Protocol Last Admin: 08/12/21 08:36 Dose: 100 mg Metoprolol Succinate (Metoprolol Succinate Er 50 Mg Tab.Er.24h) 50 mg PO DAILY [facility]; Protocol Last Admin: 08/12/21 08:36 Dose: 50 mg Omeprazole (Omeprazole 20 Mg Capsule.Dr) 20 mg PO DAILY@0630 [facility] Last Admin: 08/12/21 05:10 Dose: 20 mg Ondansetron HCl (Ondansetron Hcl 4 Mg/2 Ml Vial) 4 mg IVPUSH Q8H PRN PRN Reason: Nausea and Vomiting Pharmacy Consult (Consult Rx Vancomycin Dosing) 1 each MISCELLANE DAILY PRN PRN Reason: Consult order Pharmacy Consult (Consult Rx Vancomycin Dosing) 1 each MISCELLANE DAILY [facility] Sodium Chloride (0.9 % Sodium Chloride Flush 3 Ml Syringe) 3 ml IVFLUSH QSHIFT [facility] Last Admin: 08/12/21 08:37 Dose: 3 ml Allergies Allergies Allergy/AdvReac Type Severity Reaction Status Date / Time FRESH FRUIT Allergy Unknown ITCHY EARS Uncoded 06/03/21 10:48 THROAT Sesonal allergies Allergy Unknown itchiness Uncoded 06/03/21 10:48 some fresh fruit Allergy Unknown itchiness Uncoded 06/03/21 10:48 Assessment & Plan Assessment & Plan (1) Acute kidney injury: Status: Acute Code(s): N17.9 - Acute kidney failure, unspecified (2) Atrial fibrillation, new onset: Status: Acute Code(s): I48.91 - Unspecified atrial fibrillation (3) CKD (chronic kidney disease) stage 3, GFR 30-59 ml/min: Qualifiers: Chronic kidney disease stage 3 subtype: stage 3a (GFR 45-59) Qualified Code(s): N18.31 - Chronic kidney disease, stage 3a Status: Acute Code(s): N18.30 - Chronic kidney disease, stage 3 unspecified (4) Type 2 diabetes mellitus with hyperglycemia, with long-term current use of insulin: Status: Acute Code(s): E11.65 - Type 2 diabetes mellitus with hyperglycemia; 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 Male who has a past medical history of insulin dependent diabetes, hypertension, hyperlipidemia, chronic kidney disease stage 3, echocardiogram June 12 showed EF 55-60%. He came to ER on 08/09/2021 due to upper back and shoulder pain x1 week, has had multiple falls without head in jury, complaining of constant pain and headache. In the ED, pt found to have atrial fibrillation with rapid ventricular response, given IV diltiazem. Pt was admitted to [facility] for further workup of atrial fibrillation with RVR acute on chronic kidney disease, mild hyponatremia. Pr has been a chronic alcohol abuser, he drank 8 beers over the weekend. Over the course of hospitalization, pt was found to have elevated LFTs / lipase and CT showed findings of cirrhosis. Plan: Patient is no longer making homicidal statements and denies homicidal ideation he is not presenting? with any safety concerns. patient does not have a psychiatric history. per our end there are no? mood or behavioral concerns. at this time no psychiatric interventions are indicated. However, if this changes please consult with Psychiatry again.? I spent minutes with the patient and/or on the patient floor today, greater than?50% of which was spent counseling/coordinating care. Patient educated on: other
[2021-08-12] MEDS: Albuterol/Iprat 2.5/0.5MG 3 ML AMPUL.NEB INHALE (16:52)
[2021-08-12] MEDS: cefTRIAXone sodium 1 GM in 0.9 % Sodium Chloride 50 ML IV (17:44)
--- NOTE | 2021-08-12 18:46 | PM.EVENT ---
Event Note Date of Service: 08/12/21 Event Note: The patient was noted to be hypoxic with possible aspiration. CXR did not show any acute findings at the bone but his oxygen requirement increased and he was noticed to have mild respiratory distress. On exam he has very mild basal crackles and lower extremities edema. These findings could be from CHF or aspiration pneumonitis Start IV Lasix 1 dose for now Discontinue IV fluid to give steroids for possible pneumonitis He was also noted to have a bloody bowel motion which could be secondary to hemorrhoid bleed given his elevated INR. He is supposed to receive vitamin K supplement. Hold aspirin GI to evaluate the patient in the morning Start PPI IV To be discussed with the night physician to follow-up on CBC.
[2021-08-12] MEDS: Phytonadione (Vit K1) 10 MG in 0.9 % Sodium Chloride 50 ML 51 MG IV (18:52)
[2021-08-12 19:10] LABS: Hematocrit 33.6 % (42.0-52.0); Hemoglobin 11.3 g/dl (14.0-18.0); Mean Corpuscular HGB Conc 33.6 g/dl (31.0-36.0)
[2021-08-12 19:12] LABS: Mean Corpuscular Hemoglobin 29.5 pg (27.0-33.0); Mean Corpuscular Volume 87.7 fL (80.0-98.0); Red Blood Count 3.83 X10*6/uL (4.60-5.80); Red Cell Distribution Width 14.3 % (11.0-16.0); White Blood Count 25.1 X10*3/uL (4.8-10.8)
[2021-08-12 19:17] LABS: NRBC Pct Auto 1.4 /100WBC (0.0-0.2); PLT ABN DIST 1; Platelet Count 73 X10*3/uL (160-400)
[2021-08-12] MEDS: Furosemide 40 MG/4 ML VIAL IVPUSH (19:31)
[2021-08-12] MEDS: Pantoprazole Sodium 40 MG/10 ML VIAL IVPUSH (19:32)
[2021-08-12] MEDS: methylPREDNISolone Sod Succ 40 MG/ML VIAL IVPUSH (19:32)
[2021-08-12 21:37] LABS: Glucose, Whole Blood 99 mg/dL (60-115)
[2021-08-13] VITALS (7 sets, daily range): BP systolic 102–149; BP diastolic 51–83; PULSE 77–102; RESP 18–24; TEMP 36.4–37.2; O2SAT 94–97; BMI 31.2
--- NOTE | 2021-08-13 00:30 | MHC.PIE ---
P.3.4 SECOND PAUSE I.PT HAD 3.4 SECOND PAUSE ON TELE.REMAINS AFIB,HR 80-90,BP 116/61.PT ASLEEP.AWAKENED.DENIES SYMPTOMS.REPORTED TO . STATES FOLLOW UP WITH CARDIO IN AM. E.CONT TO MONITOR
--- NOTE | 2021-08-13 01:49 | PM.EVENT ---
Event Note Date of Service: 08/13/21 Event Note: Sinus Pause: noted 3.4 sec pause; pt asymptomatic; pt was sleeping; Cardiology follow up in AM.
[2021-08-13 02:28] LABS: Glucose, Whole Blood 102 mg/dL (60-115)
--- NOTE | 2021-08-13 02:32 | CONS_ITS ---
DATE OF SERVICE: 08/12/2021 REFERRING PHYSICIAN: Lon Watkins MD REASON FOR CONSULTATION: Cirrhosis. HISTORY OF PRESENT ILLNESS: The patient is a 66-year-old man who was admitted to the hospital on August 09 with pain in the shoulders, back and a fall at home. He also was noted to have atrial fibrillation with rapid ventricular response, hyponatremia, acute kidney injury and sepsis with Staph aureus bacteremia. As part of his evaluation, he underwent CT scanning on August 11, which is a limited study and was done without oral or IV contrast. He was not reported to have a cirrhotic appearing liver with a small amount of ascites. Currently, the patient is confused and denies alcohol use, but has reportedly told others that he drinks upwards of 5 drinks on weekend days. He underwent evaluation with laboratory studies, which also showed elevation of his liver function tests and a pattern consistent with alcohol. Hepatitis testing has been negative. PAST MEDICAL HISTORY: 1. Diabetes. 2. Hypertension. 3. Hyperlipidemia. 4. Chronic kidney disease. 5. Recent fall. 6. Atrial fibrillation as above. 7. Colon polyps. 8. Sleep apnea. 9. Allergic rhinitis. 10. Vitamin D deficiency. CURRENT MEDICATIONS: Current medication list is reviewed in the chart. ALLERGIES: THERE ARE NO REPORTED DRUG ALLERGIES. FAMILY HISTORY: This is reviewed in the electronic medical record. SOCIAL HISTORY: There is no current substance abuse reported. REVIEW OF SYSTEMS: This is not obtainable due to the patient's confusion. PHYSICAL EXAMINATION: GENERAL: A male who is sitting comfortably in bed. VITAL SIGNS: Reviewed in electronic medical record and are stable. SKIN: Anicteric. HEENT: No scleral icterus. NECK: Without lymphadenopathy or thyromegaly. LUNGS: Clear. HEART: Regular rate and rhythm. S1, S2. No murmur. ABDOMEN: Soft without focal masses. Bowel sounds are present. There is no tenderness, guarding, or rebound. EXTREMITIES: Edema. LABORATORY DATA: Including liver function tests are reviewed as is his CT scan. IMPRESSION: Liver cirrhosis. The pattern of his liver function test elevations consistent with alcohol and he may have underlying alcoholic liver disease that has progressed to cirrhosis. Previous imaging studies have not documented liver abnormalities including ultrasound in the past. I would recommend obtaining ultrasound as a CT with somewhat of a limited study due to a lack of contrast in the patient's arm position. Further evaluation with autoimmune metabolic markers is ordered. Thanks for asking me to see him. I will follow him in the hospital with you. MD RADHA Pak/SAEED / [id number]
[2021-08-13] MEDS: Pantoprazole Sodium 40 MG/10 ML VIAL IVPUSH ×2 (06:37→16:53)
[2021-08-13 07:50] LABS: Glucose, Whole Blood 112 mg/dL (60-115)
[2021-08-13 08:42] LABS: Hematocrit 33.4 % (42.0-52.0); Hemoglobin 11.4 g/dl (14.0-18.0); Mean Corpuscular HGB Conc 34.1 g/dl (31.0-36.0); Mean Corpuscular Hemoglobin 29.7 pg (27.0-33.0); Mean Platelet Volume 13.8 fL (9.4-12.4); NRBC Pct Auto 0.8 /100WBC (0.0-0.2); Red Blood Count 3.84 X10*6/uL (4.60-5.80); Red Cell Distribution Width 14.4 % (11.0-16.0); White Blood Count 25.9 X10*3/uL (4.8-10.8)
[2021-08-13 08:43] LABS: Platelet Count 72 X10*3/uL (160-400)
[2021-08-13 09:06] LABS: Anion Gap 17 (12-20); Calcium 7.1 mg/dL (8.4-10.2); Carbon Dioxide 13 mmol/L (22-29); Chloride 107 mmol/L (96-108); Creatinine Clr Calc Pharmacy 32.3; Estimated Glomerular Filt Rate 27; Glucose Random 104 mg/dL (60-115); Potassium 4.3 mmol/L (3.3-5.1); Sodium 133 mmol/L (135-145)
[2021-08-13 09:07] LABS: Vancomycin Trough 17.3 mcg/mL (10.0-20.0)
[2021-08-13 09:11] LABS: Alanine Aminotransferase 64 U/L (0-40); Albumin Level 2.2 g/dL (3.5-5.0); Anion Gap 18 (12-20); Aspartate Amino Transferase 139 U/L (5-37); Bilirubin Total 1.9 mg/dL (0.0-1.0); Calcium 7.1 mg/dL (8.4-10.2); Carbon Dioxide 13 mmol/L (22-29); Chloride 106 mmol/L (96-108); Creatinine Clr Calc Pharmacy 31.3; Estimated Glomerular Filt Rate 26; Glucose Random 105 mg/dL (60-115); Iron 61 mcg/dL (45-160); Percent Iron Saturation 37 % (15-50); Potassium 4.3 mmol/L (3.3-5.1); Sodium 133 mmol/L (135-145); Total Iron Binding Capacity 163 mcg/dL (228-428); Total Protein 6.5 g/dL (6.5-8.0); Unsaturated Iron Binding 102 ug/dL
--- NOTE | 2021-08-13 09:18 | HE.PHANOTE ---
RE Sami, Trough was 17.3 today. Decreased dose to 500mg q24h in setting of increased scr. Random for tomorrow 08/13 @0800
[2021-08-13 09:26] LABS: Ferritin 1412 ng/mL (20-250)
[2021-08-13 09:27] LABS: Procalcitonin 5.67 ng/mL
[2021-08-13 09:28] LABS: Blood Urea Nitrogen 121 mg/dL (9-16)
[2021-08-13 09:39] LABS: INTERNATIONAL NORM RATIO 2.2 (0.9-1.1); Prothrombin Time 25.4 SEC (9.9-13.0)
[2021-08-13] MEDS: Lidocaine 4 % Patch ADH..PATCH 1 PATCH TRANSDERMA (09:42)
[2021-08-13] MEDS: Metoprolol Succinate ER 100 MG TAB.ER.24H PO (09:42)
[2021-08-13] MEDS: Thiamine HCL 100 MG in 0.9 % Sodium Chloride 100 ML 202 MG IV (09:42)
[2021-08-13] MEDS: Metoprolol Succinate ER 50 MG TAB.ER.24H PO (09:42)
[2021-08-13] MEDS: 0.9 % Sodium Chloride Flush 3 ML SYRINGE IVFLUSH ×3 (09:42→22:24)
[2021-08-13] MEDS: vancomycin HCL 500 MG in 0.9 % Sodium Chloride 100 ML 110 MG IV (09:43)
--- NOTE | 2021-08-13 10:03 | HO.PM.IMPN ---
Subjective Subjective Date of Service: 08/13/21 Interval History: hypoxic, possible aspiration overnight given 1 dose furosemide also had 1 bloody BM dyspnea improved, still coughing no fever Review of Systems Review of Systems: Yes all other systems are reviewed and are negative Physical Exam Vital Signs: Vital Signs: Last Vital Signs Temp 97.5 F 08/13/21 08:00 Pulse 98 08/13/21 08:00 Resp 20 08/13/21 08:00 BP 102/58 L 08/13/21 08:00 Pulse Ox 95 08/13/21 08:00 O2 Del Method 08/13/21 08:00 O2 Flow Rate 5 08/13/21 08:00 BMI result Body Mass Index 31.2 Gen: ill appearing HEENT: sclera anicteric, moist mucus membranes Neck: supple Lungs: clear to auscultation bilaterally Heart: irregularly irregular,, no murmurs Abd: soft, non-tender, non-distended Ext: no edema Skin: warm/well-perfused Neuro: alert and oriented x3, no focal findings, no asterixis Psych: appropriate affect Objective Data Active Medications Acetaminophen (Acetaminophen 325 Mg Tablet) 650 mg PO Q6H PRN PRN Reason: Pain, Mild (Pain Scale 1-3) Last Admin: 08/12/21 05:00 Dose: 650 mg Documented By: RAMON Albuterol/Ipratropium (Albuterol/Iprat 2.5/0.5mg 3 Ml Ampul.Neb) 3 ml INHALE RQ4H PRN PRN Reason: wheezing/shortness of breath Last Admin: 08/12/21 16:52 Dose: 3 ml Documented By: REBECA Aspirin (Aspirin Enteric Coated 81 Mg Tablet.) 81 mg PO BEDTIME [facility] Last Admin: 08/11/21 20:18 Dose: 81 mg Documented By: MARIA ESTHER Atorvastatin Calcium (Atorvastatin Calcium 40 Mg Tablet) 40 mg PO BEDTIME [facility] Last Admin: 08/12/21 21:19 Dose: Not Given Documented By: MARIA ESTHER Non-Admin Reason: Patient Refused Dextrose (Dextrose 50 % 25 Gm/50 Ml Syringe) 25 gm IVPUSH Q15M PRN; Protocol PRN Reason: per Hypoglycemia Standing Ord. Glucose (Glucose Gel 15 Gm Gel..Gram.) 15 gm PO Q15M PRN; Protocol PRN Reason: per Hypoglycemia Standing Ord. Diltiazem HCl 125 mg/ Sodium (Chloride) 125 mls @ 0 mls/hr IVCONT .Q0M [facility]; Protocol Last Titration: 08/10/21 20:18 Dose: 0 mg/hr, 0 mls/hr Documented By: RAMON Ceftriaxone Sodium 1 gm/ (Sodium Chloride) 50 mls @ 100 mls/hr IV Q24H [facility] Last Infusion: 08/12/21 18:45 Dose: 0 mls/hr Documented By: MARIA ESTHER Thiamine HCl 100 mg/ Sodium (Chloride) 101 mls @ 202 mls/hr IV DAILY [facility] Last Admin: 08/13/21 09:42 Dose: 202 mls/hr Documented By: LC Vancomycin HCl 500 mg/ Sodium (Chloride) 110 mls @ 110 mls/hr IV Q24H [facility] Last Admin: 08/13/21 09:43 Dose: 110 mls/hr Documented By: LC Insulin Human Lispro (Insulin Lispro 100 Unit/Ml 3 Ml Vial) 0 unit SUBCUT QIDACHS [facility]; Protocol Last Admin: 08/13/21 07:52 Dose: Not Given Documented By: LC Non-Admin Reason: No Insulin Coverage Lidocaine (Lidocaine 4 % Patch Adh..Patch) 1 patch TRANSDERMA DAILY [facility]; Protocol Last Admin: 08/13/21 09:42 Dose: 1 patch Documented By: LC Loperamide HCl (Loperamide Hcl 2 Mg Capsule) 2 mg PO Q4H PRN PRN Reason: Diarrhea Last Admin: 08/11/21 09:21 Dose: 2 mg Documented By: VALENCIA Metoprolol Succinate (Metoprolol Succinate Er 100 Mg Tab.Er.24h) 100 mg PO DAILY [facility]; Protocol Last Admin: 08/13/21 09:42 Dose: 100 mg Documented By: LC Metoprolol Succinate (Metoprolol Succinate Er 50 Mg Tab.Er.24h) 50 mg PO DAILY [facility]; Protocol Last Admin: 08/13/21 09:42 Dose: 50 mg Documented By: LC Ondansetron HCl (Ondansetron Hcl 4 Mg/2 Ml Vial) 4 mg IVPUSH Q8H PRN PRN Reason: Nausea and Vomiting Pantoprazole Sodium (Pantoprazole Sodium 40 Mg/10 Ml Vial) 40 mg IVPUSH BID@0630,8700 [facility] Last Admin: 08/13/21 06:37 Dose: 40 mg Documented By: ARNOL Pharmacy Consult (Consult Rx Vancomycin Dosing) 1 each MISCELLANE DAILY PRN PRN Reason: Consult order Pharmacy Consult (Consult Rx Vancomycin Dosing) 1 each MISCELLANE DAILY [facility] Sodium Chloride (0.9 % Sodium Chloride Flush 3 Ml Syringe) 3 ml IVFLUSH QSHIFT [facility] Last Admin: 08/13/21 09:42 Dose: 3 ml Documented By: LC Labs CBC & Chem 7: 08/13/21 08:09 08/13/21 08:09 Labs: Laboratory Results - last 24 hr 08/12/21 08/12/21 08/12/21 10:00 11:06 15:37 MCV MCH MCHC RDW Plt Count MPV Absolute Nucleated RBC Nucleated RBC % (auto) PT INR Anion Gap Estim Creat Clear Calc Estimated GFR POC Glucose 87 84 Random Glucose Calcium Iron TIBC % Saturation Unsat Iron Binding Ferritin Total Bilirubin AST ALT Total Protein Albumin Procalcitonin Stool Occult Blood POSITIVE Vancomycin Trough 08/12/21 08/12/21 08/13/21 18:59 21:34 02:24 MCV 87.7 MCH 29.5 MCHC 33.6 RDW 14.3 Plt Count 73 L MPV Not Reportable Absolute Nucleated RBC 0.350 H Nucleated RBC % (auto) 1.4 H PT INR Anion Gap Estim Creat Clear Calc Estimated GFR POC Glucose 99 102 Random Glucose Calcium Iron TIBC % Saturation Unsat Iron Binding Ferritin Total Bilirubin AST ALT Total Protein Albumin Procalcitonin Stool Occult Blood Vancomycin Trough 08/13/21 08/13/21 08/13/21 07:10 08:09 08:09 MCV MCH MCHC RDW Plt Count MPV Absolute Nucleated RBC Nucleated RBC % (auto) PT INR Anion Gap 18 Estim Creat Clear Calc 31.3 Estimated GFR 26 POC Glucose 112 Random Glucose 105 Calcium 7.1 L Iron 61 TIBC 163 L % Saturation 37 Unsat Iron Binding 102 Ferritin 1412 H Total Bilirubin 1.9 H AST 139 H ALT 64 H Total Protein 6.5 Albumin 2.2 L Procalcitonin Stool Occult Blood Vancomycin Trough 17.3 08/13/21 08/13/21 08/13/21 08:09 08:09 08:09 MCV 87.0 MCH 29.7 MCHC 34.1 RDW 14.4 Plt Count 72 L MPV 13.8 H Absolute Nucleated RBC 0.220 H Nucleated RBC % (auto) 0.8 H PT 25.4 H INR 2.2 H Anion Gap 17 Estim Creat Clear Calc 32.3 Estimated GFR 27 POC Glucose Random Glucose 104 Calcium 7.1 L Iron TIBC % Saturation Unsat Iron Binding Ferritin Total Bilirubin AST ALT Total Protein Albumin Procalcitonin Stool Occult Blood Vancomycin Trough 08/13/21 08:09 MCV MCH MCHC RDW Plt Count MPV Absolute Nucleated RBC Nucleated RBC % (auto) PT INR Anion Gap Estim Creat Clear Calc Estimated GFR POC Glucose Random Glucose Calcium Iron TIBC % Saturation Unsat Iron Binding Ferritin Total Bilirubin AST ALT Total Protein Albumin Procalcitonin 5.67 Stool Occult Blood Vancomycin Trough Microbiology Microbiology Results: Microbiology 08/11/21 01:50 Blood Culture - Final Blood - Venous Staphylococcus aureus 08/11/21 01:50 Blood Culture - Final Blood - Venous Staphylococcus aureus Assessment and Plan (1) Atrial fibrillation, new onset: Status: [facility] hospital d#5 66yo M with insulin-dep DM2, HTN, HLD, ASHLY not on CPAP presented to ED with back pain after falling 1 wk ago without LOC admitted for new-onset AF/RVR, hypoNa, EMIGDIO/CKD3 developed severe sepsis found to have Staph aureus bacteremia new dx cirrhosis # severe sepsis # MSSA bacteremia/pneumonia - change vanco + ceftriaxone to cefazolin. ID consult pending, surveillance BCx drawn today - no vegetation on TTE but consider GIL if BCx fails to clear - trend PCT # acute hypoxic resp failure - wean O2 as tolerated # new-onset AF/RVR - off diltiazem drip and HR now 70s-80s on metoprolol succinate - [id number] 3, hold apixaban for now given GIB - TTE with normal LVEF # GI bleed - PPI, hold apixaban + ASA; Hb stable; given vitamin K for cirrhosis-related coagulopathy # septic encephalopathy - treat infection as above # EMIGDIO/CKD3 with hx of proteinuria - SCr stable. continue to hold furosemide, spironolactone + HCTZ. continue to hold losartan. start oral bicarbonate supplementation. Nephrology following. if needs further volume consider albumin # hypoNa - hypovolemic; improving # troponin elevation - indeterminate/flat, likely due to sepsis # new dx cirrhosis - likely EtOH. HBV immune, HCV negative. GI consulted, abd US and serologic workup pending # transaminasemia - alcoholic vs. septic hepatitis; monitor LFTs which have peaked # thrombocytopenia - likely due to EtOH + cirrhosis; monitor CBC # diarrhea - prn loperamide # HLD - statin # HTN - hypotensive 2 nights ago due to sepsis. hold all antihypertensives (furosemide, spironolactone, HCTZ, losartan) except metoprolol for rate control # DM2 - hold MTF + basal insulin, give correction-dose lispro # excess EtOH intake - CARE Team + Addiction Med consults, monitor for withdrawal - giving IV thiamine and checking B1 levels # recurrent falls/unsteady gait - PT consult: will need STR # VTE ppx: SCDs In my clinical judgment, the patient requires continued hospitalization for the following reasons: IV ABX for bacteremia Quality Stroke Does the patient have a stroke diagnosis?: No VTE Prior VTE?: No VTE Risk Level:: Medical - moderate - high VTE Device Contraindication: Treatment Not Indicated VTE Drug Contraindication: N/A - Med Ordered
--- NOTE | 2021-08-13 10:41 | MHC.CDI.CONC ---
CDI Concurrent Query Documentation Clarification: PHYSICIAN'S DOCUMENTATION REQUEST Date of Query: 08/13/21 1041 Patient Name: Levi Del Toro Admit Date: 08/09/21 Dear Doctor, A review of the medical record indicates additional documentation may be needed. Please review below and update the documentation accordingly. Clinical Indicators: Is there a diagnosis that correlates with these lab findings: Risk Factors/Clinical Indicators/Treatments Lab findings: Albumin 2.3 L ETOH abuse monitor for withdrawal Based on the above, could you clarify in the Progress Notes the appropriate diagnosis, if significant, that supports the above abnormalities and additional evaluation, monitoring, and/or treatment rendered: Hypoalbuminemia or other etiology of lab findings Labs indicate a diagnosis of (please specify) Other (please specify) Unable to determine Use of terms such as suspected, likely, concern for, or probable (associated with a specific diagnosis that is being evaluated, monitored, or treated as if it exists) are acceptable and can be coded in the inpatient setting, when documented at the time of discharge. Thank you, Sparkle Lockwood [facility], CDIS Extension: [phone] Please use your independent medical judgment in providing your response. THIS QUERY IS PART OF THE PERMANENT MEDICAL RECORD Provider Response: Other Other Diagnosis: due to cirhosis
[2021-08-13 10:59] LABS: Alkaline Phosphatase 179 U/L (39-117)
--- NOTE | 2021-08-13 11:33 | PM.PNNEP ---
Subjective Subjective Date of Service: 08/14/21 Principal diagnosis: AF Interval history: possible aspiration overnight Had 1 dose furosemide/ Off IVF also had 1 bloody BM dyspnea improved, still coughing no fever Physical Exam Vital Signs: Vital Signs: Last Vital Signs Temp 97.9 F 08/13/21 11:14 Pulse 83 08/13/21 11:14 Resp 18 08/13/21 11:14 BP 109/59 L 08/13/21 11:14 Pulse Ox 95 08/13/21 11:14 O2 Del Method 08/13/21 11:14 O2 Flow Rate 5 08/13/21 11:14 BMI result Body Mass Index 31.2 Const: General: cooperative Neck: Neck: Yes supple Resp: Effort & Inspection: normal respiratory effort Auscultation: clear to auscultation bilaterally Cardio: Rate: regular rate and tachycardic Heart sounds: no murmurs GI: Palpation (GI): Soft to palpation and nontender Skin: General skin exam: no rashes or lesions noted Neuro: Cognition (Neuro): normal cognition Motor exam (neuro): 5/5 motor strength present throughout Objective Data Labs CBC & Chem 7: 08/14/21 07:16 08/14/21 07:16 Labs: Laboratory Results - last 24 hr 08/12/21 08/12/21 08/12/21 15:37 18:59 21:34 WBC 25.1 H RBC 3.83 L Hgb 11.3 L Hct 33.6 L MCV 87.7 MCH 29.5 MCHC 33.6 RDW 14.3 Plt Count 73 L MPV Not Reportable Absolute Nucleated RBC 0.350 H Nucleated RBC % (auto) 1.4 H PT INR Sodium Potassium Chloride Carbon Dioxide Anion Gap BUN Creatinine Estim Creat Clear Calc Estimated GFR POC Glucose 84 99 Random Glucose Calcium Iron TIBC % Saturation Unsat Iron Binding Ferritin Total Bilirubin AST ALT Alkaline Phosphatase Total Protein Albumin Procalcitonin Vancomycin Trough 08/13/21 08/13/21 08/13/21 02:24 07:10 08:09 WBC RBC Hgb Hct MCV MCH MCHC RDW Plt Count MPV Absolute Nucleated RBC Nucleated RBC % (auto) PT INR Sodium Potassium Chloride Carbon Dioxide Anion Gap BUN Creatinine Estim Creat Clear Calc Estimated GFR POC Glucose 102 112 Random Glucose Calcium Iron TIBC % Saturation Unsat Iron Binding Ferritin Total Bilirubin AST ALT Alkaline Phosphatase Total Protein Albumin Procalcitonin Vancomycin Trough 17.3 08/13/21 08/13/21 08/13/21 08:09 08:09 08:09 WBC 25.9 H RBC 3.84 L Hgb 11.4 L Hct 33.4 L MCV 87.0 MCH 29.7 MCHC 34.1 RDW 14.4 Plt Count 72 L MPV 13.8 H Absolute Nucleated RBC 0.220 H Nucleated RBC % (auto) 0.8 H PT 25.4 H INR 2.2 H Sodium 133 L Potassium 4.3 Chloride 106 Carbon Dioxide 13 L Anion Gap 18 BUN Creatinine 2.50 H Estim Creat Clear Calc 31.3 Estimated GFR 26 POC Glucose Random Glucose 105 Calcium 7.1 L Iron 61 TIBC 163 L % Saturation 37 Unsat Iron Binding 102 Ferritin 1412 H Total Bilirubin 1.9 H AST 139 H ALT 64 H Alkaline Phosphatase 179 H D Total Protein 6.5 Albumin 2.2 L Procalcitonin Vancomycin Trough 08/13/21 08/13/21 08:09 08:09 WBC RBC Hgb Hct MCV MCH MCHC RDW Plt Count MPV Absolute Nucleated RBC Nucleated RBC % (auto) PT INR Sodium 133 L Potassium 4.3 Chloride 107 Carbon Dioxide 13 L Anion Gap 17 BUN 121 H Creatinine 2.42 H Estim Creat Clear Calc 32.3 Estimated GFR 27 POC Glucose Random Glucose 104 Calcium 7.1 L Iron TIBC % Saturation Unsat Iron Binding Ferritin Total Bilirubin AST ALT Alkaline Phosphatase Total Protein Albumin Procalcitonin 5.67 Vancomycin Trough Microbiology Microbiology Results: Microbiology 08/11/21 01:50 Blood - Venous Blood Culture - Final Staphylococcus aureus 08/11/21 01:50 Blood - Venous Blood Culture - Final Staphylococcus aureus Procedures Date of Service Date of Service: 08/14/21 Assessment & Plan Assessment and plan (1) Acute hyponatremia: Status: Acute (2) Acute kidney injury: Status: Acute Plan 1. Acute kidney injury superimposed on chronic kidney disease. 2. Hyponatremia. 3. Hyperkalemia. 4. Mild anemia with thrombocytopenia. 5. Low total CO2.? Metabolic acidosis versus respiratory alkalosis.? Elevated LFTs. Hyponatremia is most likely due to hypovolemia and continued use of hydrochlorothiazide which can decrease free water clearance.? He does have hyperkalemia, which could be due to the combination of acute kidney injury and the continued use of spironolactone.? The acute kidney injury is mostly due to hypoperfusion; Low urine sodium supports this. thrombocytopenia, - No evidence of GN Probably progressed to Ischemic ATN from low BP/ Hypoalbiminemia ? ?Continue to hold spironolactone/ Lasix, Avoid hydrochlorothiazide.? No Need for IVF PO Sodium bicarb Avoid hypotension.? Continue to avoid nephrotoxic agents.? Watch Vanco levels Watch intake and output. Restrict PO water intake and watch Na IV Albumin x 3 doses Time Spent With Patient Time: Total time spent is greater than 50% in coordination of care (as documented) at patient's floor/unit and/or counseling patient: Progress Note: Quality Stroke Does the patient have a stroke diagnosis?: No
[2021-08-13 11:37] LABS: Blood Urea Nitrogen 121 mg/dL (9-16)
--- NOTE | 2021-08-13 11:42 | MHC.SL.SWA ---
Speech Pathologist Impression: Risk of Aspiration Due to: Dysphasia Diet Status: Recommend DOWNGRADE to Chopped/Advanced (NDD3), continue with THIN liquids, Pills in PUREE. Liquid Consistency and Strategies for Safe Swallow: Liquid Intake Recommendation: Thin Liquid Intake Strategies: Small Sips Solid Food Consistency: Dietary Recommendations: Chopped/Advanced (NDD3) Additional Modifications to Solid Foods: Additional Sauces/Gravies. Pt needs supervision at all meals, assistance orienting to tray, utensils, initial preparation of food so that it is in bite sized pieces and Pt can access with cutlery. Aspiration precautions, with monitoring that patient does not overstuff mouth, or take liquid while masticating a solid texture (liquid sip AFTER solid is cleared). Oral Medication Intake: Whole with Puree Please contact the pharmacy regarding appropriate crushable or liquid drug formulations that are available whenever modified delivery is recommended. Compensatory Strategies and Precautions to be Taken for Safe Swallow: Sitting Upright (90 deg) Liquids from Cup Small Bites and Sips Alternate Liquids/Solids Rate of Ingestion Change Oral Check Avoid Specific Foods Supervision While Eating and Drinking for Safe Swallow: Total Supervision (1:1) Foods to Avoid: Tough, difficult to chew solids Swallowing Recommended Treatments: Compens. Strategy Educat. Recommendation for Speech: Inpatient Speech Therapy Comment: Pt seen this a.m. for follow up/assessment of toleration of diet. Chart indicates possible aspiration event last night. Pt is currently on regular diet with thin liquids, previous evaluation indicated oral motor WFL, mild delay when masticating solids, mild delay initiating swallow, but no clinical signs of aspiration on foods, liquids presented on assessment. Pt presented today as mildly agitated and confused. Pt had breakfast tray in front of him, said that he had been eating, but plate appeared full and mostly untouched. Pt asked me to leave, said he didn't want to be observed, at one point asked if I was the police. Pt had coffee with straw, observed patient taking sips of coffee with straw, noted that he had some difficulty navigating straw to mouth, but then took several sips, contained bolus before swallow, evidenced swallow trigger, no clinical s/s aspiration. Could not palpate swallow as patient very anxious and agitated. Pt continued to ask me to leave, offered to leave if I could observe Pt taking a bite of solid food. Pt then took large bite from piece of toast on tray, began to chew, with prolonged period of mastication. Pt removed a portion of the toast from mouth, continued to chew, then took sip of coffee with food bolus still in mouth. Pt then coughed repeatedly w/ change of face color, still with bolus of food in mouth. Pt then continued to masticate, appeared to swallow a portion of the bolus, took another sip of liquid with food bolus still present, and again coughed on the liquid. Pt continue to masticate initial food bolus, eventually swallowing the remainder of the bolus. Pt then asked me to get rid of the tray of food and leave only the water. Checked O2 sats which were in 95% range (Pt has nasal cannula). Pt presents with aspiration risk due to difficulty managing food textures at current level of diet, presented with maladaptive behaviors that increased risk of aspiration (e.g. drinking liquid with large amount of food in mouth). Pt also markedly confused/agitated, taking limited po. Recommend DOWNGRADE diet to Chopped/Advanced consistency to improve ease of mastication. Pt needs supervision during all meals, encouragement and occasional assistance with food items/utensils due to level of confusion/agitation. Diet change recommendation communicated to MD via secure text, FINANCIAL REPORTING SPECIALIST made change in diet orders. Frequency/Duration: Date Range for Service Req: Timeline to reassess: Pastrycook'S Assistant Clinican/Clinical Fellow: No Supervisory Statement: I have reviewed and agree with the student/clinical fellow's documentation: N/A Speech Language Pathologist: Divina Moore M.A., [facility]-FINANCIAL REPORTING SPECIALIST
[2021-08-13 11:57] LABS: Glucose, Whole Blood 115 mg/dL (60-115)
[2021-08-13] MEDS: Sodium Bicarbonate 650 MG TABLET PO ×2 (12:52→22:22)
[2021-08-13] MEDS: ceFAZolin Sodium/Dextrose,Iso 2 GM/50 ML PIGGYBACK IV ×2 (12:52→22:22)
--- NOTE | 2021-08-13 15:12 | MHC.CM.PN ---
Male 66 DX New onset AFIB EMIGDIO Per MD rounds the patient will need a PICC line inserted. Per PT Patient qualifies for STR. [facility] contracted facilities have been sent referrals. Patient will transport via BLS.
[2021-08-13 15:54] LABS: Glucose, Whole Blood 149 mg/dL (60-115)
[2021-08-13] MEDS: Albumin Human 25 % 100 ML IV ×2 (16:54→22:22)
[2021-08-13 20:03] LABS: Glucose, Whole Blood 214 mg/dL (60-115)
[2021-08-13 21:18] LABS: OBS Int Ctl Valid YES; OBS1 POSITIVE (NEGATIVE)
[2021-08-13] MEDS: Atorvastatin Calcium 40 MG TABLET PO (22:22)
[2021-08-13] MEDS: Insulin Lispro 100 UNIT/ML 3 ML VIAL SUBCUT (22:24)
[2021-08-14] VITALS (27 sets, daily range): BP systolic 74–138; BP diastolic 41–71; PULSE 57–129; RESP 12–38; TEMP 34.5–37; O2SAT 84–111; BMI 31.4
[2021-08-14] MEDS: Pantoprazole Sodium 40 MG/10 ML VIAL IVPUSH ×2 (06:28→15:24)
[2021-08-14 07:43] LABS: Hematocrit 30.3 % (42.0-52.0); Hemoglobin 10.3 g/dl (14.0-18.0); Mean Corpuscular Hemoglobin 29.3 pg (27.0-33.0); Mean Corpuscular Volume 86.3 fL (80.0-98.0); Mean Platelet Volume 13.7 fL (9.4-12.4); NRBC Pct Auto 0.4 /100WBC (0.0-0.2); Platelet Count 53 X10*3/uL (160-400); Red Blood Count 3.51 X10*6/uL (4.60-5.80); Red Cell Distribution Width 14.1 % (11.0-16.0); White Blood Count 27.4 X10*3/uL (4.8-10.8)
[2021-08-14 07:59] LABS: Glucose, Whole Blood 293 mg/dL (60-115)
[2021-08-14 08:00] LABS: Alanine Aminotransferase 49 U/L (0-40); Albumin Level 2.8 g/dL (3.5-5.0); Alkaline Phosphatase 165 U/L (39-117); Anion Gap 18 (12-20); Aspartate Amino Transferase 91 U/L (5-37); Bilirubin Total 2.1 mg/dL (0.0-1.0); Calcium 7.3 mg/dL (8.4-10.2); Carbon Dioxide 14 mmol/L (22-29); Chloride 106 mmol/L (96-108); Creatinine Clr Calc Pharmacy 32.1; Estimated Glomerular Filt Rate 27; Glucose Random 303 mg/dL (60-115); Potassium 4.1 mmol/L (3.3-5.1); Sodium 134 mmol/L (135-145); Total Protein 7.1 g/dL (6.5-8.0)
[2021-08-14 08:02] LABS: INTERNATIONAL NORM RATIO 2.2 (0.9-1.1); Prothrombin Time 25.8 SEC (9.9-13.0)
[2021-08-14 08:15] LABS: Blood Urea Nitrogen 131 mg/dL (9-16)
[2021-08-14] MEDS: Insulin Lispro 100 UNIT/ML 3 ML VIAL SUBCUT (08:39)
[2021-08-14] MEDS: Metoprolol Succinate ER 100 MG TAB.ER.24H PO (08:39)
[2021-08-14] MEDS: Metoprolol Succinate ER 50 MG TAB.ER.24H PO (08:40)
[2021-08-14] MEDS: Lidocaine 4 % Patch ADH..PATCH 1 PATCH TRANSDERMA (08:40)
[2021-08-14] MEDS: Sodium Bicarbonate 650 MG TABLET PO (08:40)
[2021-08-14] MEDS: Thiamine HCL 100 MG in 0.9 % Sodium Chloride 100 ML 202 MG IV (08:40)
[2021-08-14] MEDS: 0.9 % Sodium Chloride Flush 3 ML SYRINGE IVFLUSH ×2 (08:41→14:56)
[2021-08-14] MEDS: Nafcillin Sodium 2 GM in 0.9 % Sodium Chloride 100 ML IV ×4 (10:13→22:56)
--- NOTE | 2021-08-14 11:01 | PM.PNCARD ---
Subjective Subjective Date of Service: 08/14/21 Principal diagnosis: AF Interval history: We were asked to see Levi again for consideration for GIL. He has been having persistent bacteremia with MSSA. S question for endocarditis. He continues to have spine symptoms but he says his pain is a lot better. However he appears clinically very short of breath. Unclear reason. He was diuresed. Also there is question of bilateral pneumonia/atelectasis. He is not complaining of shortness of breath. He is noted to be tachycardic. Review of Systems Constitutional: Reports weakness Eyes: Reports no additional eye complaints Cardiovascular: Denies chest pain, Denies rapid heart rate, Denies leg edema, Denies lightheadedness, Denies Loss of Consciousness and Reports dyspnea Respiratory: Denies cough, Reports dyspnea and Denies wheezing Gastrointestinal: Reports no additional gastrointestinal complaints Musculoskeletal: Reports back pain Skin/Breast: Reports system reviewed and no additional complaints, except as docu Reports system reviewed and no additional complaints, except as documented and Reports weakness Allergic/Immunologic: Denies wheezing Physical Exam Vital Signs: Last Vital Signs Temp 97.1 F 08/14/21 07:47 Pulse 129 H 08/14/21 07:47 Resp 18 08/14/21 07:47 BP 134/69 08/14/21 07:47 Pulse Ox 97 08/14/21 07:47 O2 Del Method 08/14/21 07:47 O2 Flow Rate 4 08/14/21 07:47 BMI result Body Mass Index 31.4 Const General: cooperative and in distress moderate and respiratory Nutritional Appearance: overweight Orientation/consciousness: patient oriented x3 Neck Neck: Yes trachea midline, Yes supple and Yes no JVD Cardio Rate: tachycardic Rhythm: abnormal rhythm irregularly irregular Heart sounds: S1 normal heart sound present and S2 normal heart sound present GI Inspection: Yes distended Auscultation: normal bowel sounds Skin General skin exam: ecchymosis Neuro General: patient oriented x3 and no focal motor deficits Extrem General: No clubbing, No cyanosis and Yes edema Objective Labs and Meds Result diagrams: 08/14/21 07:16 08/14/21 07:16 Lab results: Laboratory Results - last 24 hr 08/12/21 08/13/21 08/13/21 06:07 08:09 08:09 WBC RBC Hgb Hct MCV MCH MCHC RDW Plt Count MPV Absolute Nucleated RBC Nucleated RBC % (auto) Smear Path Review SEE NOTE PT INR Sodium Potassium Chloride Carbon Dioxide Anion Gap BUN 121 H 121 H Creatinine Estim Creat Clear Calc Estimated GFR POC Glucose Random Glucose Calcium Total Bilirubin AST ALT Alkaline Phosphatase Total Protein Albumin Stool Occult Blood 08/13/21 08/13/21 08/13/21 11:13 15:25 19:33 WBC RBC Hgb Hct MCV MCH MCHC RDW Plt Count MPV Absolute Nucleated RBC Nucleated RBC % (auto) Smear Path Review PT INR Sodium Potassium Chloride Carbon Dioxide Anion Gap BUN Creatinine Estim Creat Clear Calc Estimated GFR POC Glucose 115 149 H 214 H Random Glucose Calcium Total Bilirubin AST ALT Alkaline Phosphatase Total Protein Albumin Stool Occult Blood 08/13/21 08/14/21 08/14/21 21:06 07:16 07:16 WBC 27.4 H RBC 3.51 L Hgb 10.3 L Hct 30.3 L MCV 86.3 MCH 29.3 MCHC 34.0 RDW 14.1 Plt Count 53 L D MPV 13.7 H Absolute Nucleated RBC 0.110 H Nucleated RBC % (auto) 0.4 H Smear Path Review PT INR Sodium 134 L Potassium 4.1 Chloride 106 Carbon Dioxide 14 L Anion Gap 18 BUN 131 H Creatinine 2.44 H Estim Creat Clear Calc 32.1 Estimated GFR 27 POC Glucose Random Glucose 303 H D Calcium 7.3 L Total Bilirubin 2.1 H AST 91 H ALT 49 H Alkaline Phosphatase 165 H Total Protein 7.1 Albumin 2.8 L D Stool Occult Blood POSITIVE 08/14/21 08/14/21 07:16 07:46 WBC RBC Hgb Hct MCV MCH MCHC RDW Plt Count MPV Absolute Nucleated RBC Nucleated RBC % (auto) Smear Path Review PT 25.8 H INR 2.2 H Sodium Potassium Chloride Carbon Dioxide Anion Gap BUN Creatinine Estim Creat Clear Calc Estimated GFR POC Glucose 293 H Random Glucose Calcium Total Bilirubin AST ALT Alkaline Phosphatase Total Protein Albumin Stool Occult Blood Imaging Radiologist's impression: Impressions Abdomen Ultrasound 08/13/21 15:30 IMPRESSION: Very limited exam. Cirrhotic-appearing liver and small amount of ascites. Progress Note: A&P Assessment and plan (1) MSSA bacteremia: Status: Acute Assessment and Plan: Recurrent MSSA bacteremia of unclear source. He presented with back pain and question there is diskitis/epidural abscess. Usually also related to him at to [place] breath. However being considered for MRI. If no other source is identified I think GIL is appropriate to evaluate for endocarditis. However currently respiratory status is tenuous and this needs to be worked up and treated. (2) Atrial fibrillation, new onset: Status: Acute Assessment and Plan: Atrial fibrillation with slightly rapid ventricular response. This appears to be secondary to his current respiratory distress. Treat his underlying respiratory distress. Treat his underlying infection. Continue metoprolol therapy and can maximize to 100 mg b.i.d.. If rate remains difficult to control can add digoxin if need be. Currently not on any anticoagulation. (3) SOB (shortness of breath): Status: Acute Assessment and Plan: Shortness of breath of unclear etiology and could be multifactorial. Could be related to fluid overload and heart failure. Also could be related to atelectasis due to poor respiratory effort and being bed bound. Workup for the same. Also possibility of PE should be considered. Workup from this perspective prior to performing any procedures requiring anesthesia. Being worked up by hospitalist team. Continue supportive care oxygen supplementation. Overall prognosis is guarded. Will sign of the case and if patient persistent remains bacteremic and/or develops any other cardiac issues feel free to contact us. Time Spent With Patient Time: Total time spent is greater than 50% in coordination of care (as documented) at patient's floor/unit and/or counseling patient: Progress Note: Quality Stroke Does the patient have a stroke diagnosis?: No Procedures Date of Service Date of Service: 08/14/21
--- NOTE | 2021-08-14 11:22 | PM.PNNEP ---
Subjective Subjective Date of Service: 08/14/21 Principal diagnosis: AF Interval history: Pt with a [place] cath - Passing good amount of urine dyspnea + Physical Exam Vital Signs: Vital Signs: Last Vital Signs Temp 97.1 F 08/14/21 07:47 Pulse 129 H 08/14/21 07:47 Resp 18 08/14/21 07:47 BP 134/69 08/14/21 07:47 Pulse Ox 97 08/14/21 07:47 O2 Del Method 08/14/21 07:47 O2 Flow Rate 4 08/14/21 07:47 BMI result Body Mass Index 31.4 Const: General: cooperative and in distress moderate and respiratory Nutritional Appearance: overweight Orientation/consciousness: patient oriented x3 Neck: Neck: Yes trachea midline, Yes supple and Yes no JVD Cardio: Rate: tachycardic Rhythm: abnormal rhythm irregularly irregular Heart sounds: S1 normal heart sound present and S2 normal heart sound present GI: Inspection: Yes distended Auscultation: normal bowel sounds Skin: General skin exam: ecchymosis Neuro: General: patient oriented x3 and no focal motor deficits Extrem: General: No clubbing, No cyanosis and Yes edema Objective Data Labs CBC & Chem 7: 08/14/21 07:16 08/14/21 07:16 Labs: Laboratory Results - last 24 hr 08/12/21 08/13/21 08/13/21 06:07 08:09 08:09 WBC RBC Hgb Hct MCV MCH MCHC RDW Plt Count MPV Absolute Nucleated RBC Nucleated RBC % (auto) Smear Path Review SEE NOTE PT INR Sodium Potassium Chloride Carbon Dioxide Anion Gap BUN 121 H 121 H Creatinine Estim Creat Clear Calc Estimated GFR POC Glucose Random Glucose Calcium Total Bilirubin AST ALT Alkaline Phosphatase Total Protein Albumin Stool Occult Blood 08/13/21 08/13/21 08/13/21 11:13 15:25 19:33 WBC RBC Hgb Hct MCV MCH MCHC RDW Plt Count MPV Absolute Nucleated RBC Nucleated RBC % (auto) Smear Path Review PT INR Sodium Potassium Chloride Carbon Dioxide Anion Gap BUN Creatinine Estim Creat Clear Calc Estimated GFR POC Glucose 115 149 H 214 H Random Glucose Calcium Total Bilirubin AST ALT Alkaline Phosphatase Total Protein Albumin Stool Occult Blood 08/13/21 08/14/21 08/14/21 21:06 07:16 07:16 WBC 27.4 H RBC 3.51 L Hgb 10.3 L Hct 30.3 L MCV 86.3 MCH 29.3 MCHC 34.0 RDW 14.1 Plt Count 53 L D MPV 13.7 H Absolute Nucleated RBC 0.110 H Nucleated RBC % (auto) 0.4 H Smear Path Review PT INR Sodium 134 L Potassium 4.1 Chloride 106 Carbon Dioxide 14 L Anion Gap 18 BUN 131 H Creatinine 2.44 H Estim Creat Clear Calc 32.1 Estimated GFR 27 POC Glucose Random Glucose 303 H D Calcium 7.3 L Total Bilirubin 2.1 H AST 91 H ALT 49 H Alkaline Phosphatase 165 H Total Protein 7.1 Albumin 2.8 L D Stool Occult Blood POSITIVE 08/14/21 08/14/21 07:16 07:46 WBC RBC Hgb Hct MCV MCH MCHC RDW Plt Count MPV Absolute Nucleated RBC Nucleated RBC % (auto) Smear Path Review PT 25.8 H INR 2.2 H Sodium Potassium Chloride Carbon Dioxide Anion Gap BUN Creatinine Estim Creat Clear Calc Estimated GFR POC Glucose 293 H Random Glucose Calcium Total Bilirubin AST ALT Alkaline Phosphatase Total Protein Albumin Stool Occult Blood Microbiology Microbiology Results: Microbiology 08/13/21 08:09 Blood - Venous Blood Culture - Preliminary Prelim: GPC Gram Stain only 08/13/21 08:09 Blood - Venous Blood Culture - Preliminary Prelim: GPC Gram Stain only 08/11/21 01:50 Blood - Venous Blood Culture - Final Staphylococcus aureus 08/11/21 01:50 Blood - Venous Blood Culture - Final Staphylococcus aureus Procedures Date of Service Date of Service: 08/14/21 Assessment & Plan Assessment and plan (1) Acute hyponatremia: Status: Acute (2) Acute kidney injury: Status: Acute Plan 1. Acute kidney injury superimposed on chronic kidney disease. Cr is stable 2. Hyponatremia.Resolved 3. Hyperkalemia. Resolved 4. Mild anemia with thrombocytopenia. 5. Metabolic acidosis Hyponatremia is most likely due to hypovolemia and continued use of hydrochlorothiazide The acute kidney injury is mostly due to hypoperfusion; Low urine sodium supports this. thrombocytopenia, - No evidence of GN Probably progressed to Ischemic ATN from low BP/ Hypoalbiminemia Increase BUN>>> Cr - ? GI loss of blood. ? Continue to hold spironolactone/ Lasix, Avoid hydrochlorothiazide.? No Need for IVF PO Sodium bicarb - Increased to TID -SOB can be a compensatory response Avoid hypotension.? Continue to avoid nephrotoxic agents.? Off Vancop on Nafcillin Watch intake and output. Thx Dr East Time Spent With Patient Time: Total time spent is greater than 50% in coordination of care (as documented) at patient's floor/unit and/or counseling patient: Progress Note: Quality Stroke Does the patient have a stroke diagnosis?: No
[2021-08-14 11:40] LABS: Glucose, Whole Blood 247 mg/dL (60-115)
[2021-08-14] MEDS: Furosemide 40 MG/4 ML VIAL IVPUSH (12:28)
--- NOTE | 2021-08-14 12:42 | W.PM.CCCN ---
History of Present Illness Data of Consult Service Date: 08/14/21 Requesting physician: Lon Watkins Primary Care Provider: Ada Urias NP HPI Reason for consult: Respiratory distress and severe delirium Mr. Del Toro was transferred to the ICU this afternoon bec of respiratory distress and severe acute delirium. The patient is a 66 yo male with PMHx of obesity, DM on insulin, HTN, HLD, CKD 3, ASHLY.? The patient lives with a personnel consultant of 17 years (not ; the patient?s sister is his HCP).? The patient does drink alcohol, 8 beers/weekend. Echocardiogram June 12 showed EF 55-60%; RV poorly visualized, normal fxn; normal atria; no valvular pathology; normal diastolic dysfunction; IVC not visualized; normal RVSP. The patient was BIBA on August 09 for evaluation of a fall with head injury.? The patient stated that over the prior week he had been experiencing progressively worse pain in his upper back and shoulders.? The morning of admission, he got up to go to the bathroom and he slipped and fell.? He hit his head but denied LOC.? He has also fallen one week prior but did not hit his head, no LOC.? Also had been having chills. In the ED, the patient was noted to be in atrial fibrillation with RVR; had been SR this past May during a cardiology outpatient visit (to address cardiovascular risk factors).? He was treated with 10 mg IV diltiazem with improvement.? BP was soft 105/47, BUN/creatinine 64-2.3 (was 1.2 in July,), bicarb 17, potassium 5.1.? Sodium was 127. ?Bilirubin 2.0.? Platelet count 34863 (chronic).? Chest x-ray and head and cervical spine CT were unrevealing. The patient was admitted to the hospital with primary dx of new onset atrial fibrillation with RVR, and mild hyponatremia.? Was started on aspirin and Eliquis. The morning of August 11, the patient was noted to be hypotensive and afebrile, but had an elevated WBC, and lactic acid of 5.4.? Cultures were drawn and the patient was given a fluid bolus and put on vanco and ceftriaxone for empiric sepsis.? An ECHOCARDIOGRAM done later that morning for evaluation of the new atrial fibrillation showed normal LV systolic function, normal RV, left atrium mildly dilated, valvular Dopplers unremarkable, IVC normal in size with greater than 50% inspiratory collapse, there was a trivial loculated pericardial effusion overlying left ventricle.? No vegetation was seen. CT abdomen on 08/11 notable for cirrhotic-appearing liver. Small amount of ascites. Wall thickening of the colon question representing colitis versus changes related to liver disease. Bilateral lower lobe infiltrates, right greater than left and tiny bilateral pleural effusions. BCs came back positive for GPC.? The patient?s HR came down on metoprolol, and diltiazem was d/c?d.? Stool was positive for occult blood; Eliquis and ASA were d/c?d on 08/12 bec of concern for poss GI bleed, altho Hb was stable.? On 08/12, he became hypoxemic with increased oxygen requirement.? Thought possible aspiration.? Also had a bloody bowel movement, thought possibly secondary to hemorrhoidal bleed, given his elevated INR.? He was given vitamin K for cirrhosis-related coagulopathy. ?The blood cultures came back as MSSA and he was changed to nafcillin.? Altered mental status and homicidal threats were thought secondary to septic encephalopathy.? Seen by psychiatry and they agreed. On 08/13, f/u blood cultures were done, which came back both sets still positive.? Throughout the hospitalization, the patient's creatinine has been fairly steady in the range of about 2.2-2.5, but his BUN has been rising steadily up to 131.? Renal has been following.? In their opinion, the patient this has been secondary to hypoperfusion, and has now possibly progressed to ischemic ATN. This morning the patient became extremely agitated and delirious with much worsening oxygen requirement.? A non-rebreather face mask was placed.? He seemed to be complaining of new onset chest pain and worsening upper back pain.? I saw the patient up on [facility] with Dr. Watkins.? The patient was struggling to breathe on the NRBFM, and was severely delirious.? We immediately arranged for transfer to the ICU. On arrival to the ICU the patient was immed started on Precedex, which calmed him down markedly.? With the addition of low dose propfol, we were able to place a central line (separate procedure).? Estimated CVP from the CVL placement was 13cm water (10 mm Hg).? On NRBFM 15L the Sat was 95%, with RR mid 20s, with much improved resp pattern.? HR 80?s Afib, BP 127/66.? Last temp 96.9.? There was no JVD.? Chest probably clear on inspiration (underneath his upper airway rhonchi), but rhochorous on exhalation.? Normal exp phase.? Soft heart tones.? Murmur or gallop appreciated.? His abdomen is very rotund and firm.? On inspiration, I think I was able to feel a 3 FB liver.? Abdomen other wound otherwise benign.? No peripheral edema, but he has a swollen left foot. LABORATORY DATA after arrival to the ICU:? Lactic acid was 1.9.? Ammonia level was 109.? Central venous blood gas showed 7.23/37/-10. CXR showed low lung volumes with possible mild interstitial edema.? No significant change from the previous film of August 12. My bedside ECHOCARDIOGRAM for hemod monitoring:? Normal LV size and wall thickness.? Normal contractility, EF approximately 60%.? RV size difficult to estimate, looks top-normal to me.? Normal valvular dopplers.? No significant TR or tricuspid CW Doppler envelope. IVC 1.4 cm with minimal insp collapse. IMPRESSION: 66yo M with obesity, insulin-dep DM2, HTN, HLD, ASHLY, ETOH use. Presented to ED with back pain after falling 1 wk ago without any LOC Admitted for new-onset AF/RVR, hypoNa, EMIGIDO/CKD3 Developed severe sepsis and found to have MSSA bacteremia and cirrhosis [likely EtOH] Now with hypoxic respiratory failure and acute encephalopathy 1. Acute hypoxic respiratory failure.? Suspect mainly fluid overload, complicated by severe encephalopathy.? Breathing is much better on Precedex.? Doubt he has pneumonia.? Rx HFNC, fentanyl & Precedex for WOB, diuresis.? D/w Dr. East at length. 2. Metabolic encephalopathy.? 2? sepsis, uremia, hepatic enceph.? I put a Kaofeed tube down, started lactulose.? If BUN is worse tomorrow, will prob need dialysis. 3. Severe sepsis w MSSA bacteremia.? Now on nafcillin 2g q4h.? BCx still positive, altho PCT is down.? Unclear source.? DDx includes endocarditis, C-spine, right foot.? We?ll try to get him to CT of foot tonight. ?? MRI of C-spine tomorrow.? Not a candidate for GIL yet.? Trend PCT (unclear how helpful, given ARF). 4. New-onset AF/RVR.? Off diltiazem drip, HR controlled on po metoprolol.? Hold Eliquis for now given ? GIB. 5. GIB.? On PPI. ?Got 10mg Vit K, with no effect on PT/INR.? Hb stable. ?Holding Eliquis + ASA.? Will give another 40mg vitamin K for cirrhosis-related coagulopathy. 6. EMIGDIO/CKD3.? SCr stable, but BUN rising dramatically to the point that uremia may be the impetus for dialysis.? Given his resp status, we?re forced to try to diuresis.? Started on high dose Lasix drip, plus bicarb drip. Reeval in AM.? Nephrology following. 7. HypoNa.? Improving.? We?ll see what happens with vigorous diuresis. 8. New dx cirrhosis.? Likely EtOH.? GI consulted, serologic workup pending. 9. Transaminitis.? Alcoholic vs. septic hepatitis.? Follow. 10. Thrombocytopenia.? Likely 2? alcoholic cirrhosis. 11. Hypotensive today.? Clearly 2? Precedex.? Commonly lasts for hours after Precedex is turned off, and requires tx w Levophed.? Holding metoprolol.? Certainly not grossly septic. 12. DM2.? He?s critically ill, not clear where he?s going.? Started him on an insulin drip for optimal control. 13. VTE prophylaxis:? SCDs Critical care time (including full chart rev and hospital course summary; excluding procedures):? 2+ hrs PMFSH Past Medical History Medical History Allergic rhinitis Erectile dysfunction Obstructive sleep apnea Retinopathy Tubular adenoma Vitamin D deficiency Family History Family History Father Myocardial infarction CVD (cardiovascular disease) Mother Diabetes Surgical History Surgical History History of surgical procedure on eye proper using laser Hx of cataract surgery Hx of cholecystectomy Hx of colonoscopy with polypectomy Social History Social History Household Members: Children Housing: Apartment Patient Tobacco Use Status: Never used Tobacco service: No Current occupational status: retired and disabled 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 Meds Allergies Allergy/AdvReac Type Severity Reaction Status Date / Time FRESH FRUIT Allergy Unknown ITCHY EARS Uncoded 06/03/21 10:48 THROAT Sesonal allergies Allergy Unknown itchiness Uncoded 06/03/21 10:48 some fresh fruit Allergy Unknown itchiness Uncoded 06/03/21 10:48 Active Medications: Current Medications Acetaminophen (Acetaminophen 325 Mg Tablet) 650 mg PO Q6H PRN PRN Reason: Pain, Mild (Pain Scale 1-3) Last Admin: 08/12/21 05:00 Dose: 650 mg Albuterol/Ipratropium (Albuterol/Iprat 2.5/0.5mg 3 Ml Ampul.Neb) 3 ml INHALE RQ4H PRN PRN Reason: wheezing/shortness of breath Last Admin: 08/12/21 16:52 Dose: 3 ml Aspirin (Aspirin Enteric Coated 81 Mg Tablet.Dr) 81 mg PO BEDTIME MENG Last Admin: 08/11/21 20:18 Dose: 81 mg Atorvastatin Calcium (Atorvastatin Calcium 40 Mg Tablet) 40 mg PO BEDTIME MENG Last Admin: 08/13/21 22:22 Dose: 40 mg Dextrose (Dextrose 50 % 25 Gm/50 Ml Syringe) 25 gm IVPUSH Q15M PRN; Protocol PRN Reason: per Hypoglycemia Standing Ord. Glucose (Glucose Gel 15 Gm Gel..Gram.) 15 gm PO Q15M PRN; Protocol PRN Reason: per Hypoglycemia Standing Ord. Diltiazem HCl 125 mg/ Sodium (Chloride) 125 mls @ 0 mls/hr IVCONT .Q0M MENG; Protocol Last Titration: 08/10/21 20:18 Dose: 0 mg/hr, 0 mls/hr Thiamine HCl 100 mg/ Sodium (Chloride) 101 mls @ 202 mls/hr IV DAILY [facility] Last Infusion: 08/14/21 10:22 Dose: Infused Nafcillin Sodium 2 gm/ Sodium (Chloride) 100 mls @ 200 mls/hr IV Q4H MENG Last Infusion: 08/14/21 12:29 Dose: Infused Insulin Human Lispro (Insulin Lispro 100 Unit/Ml 3 Ml Vial) 0 unit SUBCUT QIDACHS [facility]; Protocol Last Admin: 08/14/21 08:39 Dose: 6 unit Lidocaine (Lidocaine 4 % Patch Adh..Patch) 1 patch TRANSDERMA DAILY [facility]; Protocol Last Admin: 08/14/21 08:40 Dose: 1 patch Loperamide HCl (Loperamide Hcl 2 Mg Capsule) 2 mg PO Q4H PRN PRN Reason: Diarrhea Last Admin: 08/11/21 09:21 Dose: 2 mg Metoprolol Succinate (Metoprolol Succinate Er 100 Mg Tab.Er.24h) 100 mg PO DAILY [facility]; Protocol Last Admin: 08/14/21 08:39 Dose: 100 mg Metoprolol Succinate (Metoprolol Succinate Er 50 Mg Tab.Er.24h) 50 mg PO DAILY [facility]; Protocol Last Admin: 08/14/21 08:40 Dose: 50 mg Ondansetron HCl (Ondansetron Hcl 4 Mg/2 Ml Vial) 4 mg IVPUSH Q8H PRN PRN Reason: Nausea and Vomiting Pantoprazole Sodium (Pantoprazole Sodium 40 Mg/10 Ml Vial) 40 mg IVPUSH BID@0630,1630 [facility] Last Admin: 08/14/21 06:28 Dose: 40 mg Pharmacy Consult (Consult Rx Vancomycin Dosing) 1 each MISCELLANE DAILY PRN PRN Reason: Consult order Pharmacy Consult (Consult Rx Vancomycin Dosing) 1 each MISCELLANE DAILY [facility] Sodium Bicarbonate (Sodium Bicarbonate 650 Mg Tablet) 650 mg PO BID [facility] Last Admin: 08/14/21 08:40 Dose: 650 mg Sodium Chloride (0.9 % Sodium Chloride Flush 3 Ml Syringe) 3 ml IVFLUSH QSHIFT [facility] Last Admin: 08/14/21 08:41 Dose: 3 ml Thiamine HCl (Thiamine Hcl 100 Mg Tablet) 100 mg PO DAILY [facility] Home Medications Medication Instructions Recorded Confirmed Last Taken Type amlodipine 5 mg tablet 5 mg PO DAILY 02/01/20 08/09/21 08/08/21 History aspirin 81 mg tablet,delayed 81 mg PO BEDTIME 02/01/20 08/09/21 08/08/21 History release atorvastatin 40 mg tablet 40 mg PO DAILY 02/01/20 08/09/21 08/08/21 History blood sugar diagnostic #10 ea 02/01/20 06/03/21 Unknown History furosemide 20 mg tablet 20 mg PO DAILY 02/01/20 08/09/21 08/08/21 History hydrochlorothiazide 25 mg tablet 25 mg PO DAILY 02/01/20 08/09/21 08/08/21 History lancets 33 gauge #100 ea 02/01/20 06/20/21 Unknown History losartan 100 mg tablet 100 mg PO QAM 02/01/20 08/09/21 08/08/21 History metoprolol succinate 200 mg 200 mg PO BEDTIME 02/01/20 08/09/21 08/08/21 History tablet,extended release 24 hr omeprazole 20 mg capsule,delayed 20 mg PO QAM 02/01/20 08/09/21 Unknown History release spironolactone 25 mg tablet 25 mg PO DAILY 04/26/20 08/09/21 08/08/21 History sildenafil 100 mg tablet 100 mg PO DAILY PRN Sexual Activity 05/16/20 08/09/21 Unknown History calcium carbonate 600 mg-vitamin 1 tab PO DAILY 06/20/21 08/09/21 08/08/21 History D3 10 mcg (400 unit) tablet atorvastatin 40 mg tablet 1 tab PO BEDTIME 08/09/21 08/09/21 08/08/21 History dulaglutide 0.75 mg/0.5 mL 0.75 mg subcut WE 08/09/21 08/09/21 08/06/21 History subcutaneous pen injector (Trulicity) insulin aspart U-100 100 unit/mL 35 unit subcut TIDAC 08/09/21 08/09/21 08/08/21 History (3 mL) subcutaneous pen (Novolog Flexpen U-100 Insulin aspart) insulin glargine U-300 conc 300 135 unit subcut DAILY 08/09/21 08/09/21 08/08/21 History unit/mL (3 mL) subcutaneous pen (Toujeo Max U-300 SoloStar) Physical Exam Vital Signs: Vital Signs: Last Vital Signs Temp 96.9 F 08/14/21 11:21 Pulse 87 08/14/21 11:21 Resp 16 08/14/21 11:21 BP 126/61 08/14/21 11:21 Pulse Ox 92 08/14/21 11:21 O2 Del Method 08/14/21 11:21 O2 Flow Rate 4 08/14/21 11:21 BMI result Body Mass Index 31.4 Results Labs CBC & Chem 7: 08/14/21 07:16 08/14/21 07:16 Labs: Short CBC 08/14/21 Range/Units 07:16 WBC 27.4 H (4.8-10.8) X10*3/uL Hgb 10.3 L (14.0-18.0) g/dl Hct 30.3 L (42.0-52.0) % Plt Count 53 L D (160-400) X10*3/uL BMP 08/14/21 07:16 Sodium 134 L Potassium 4.1 Chloride 106 Carbon Dioxide 14 L BUN 131 H Creatinine 2.44 H Calcium 7.3 L Liver Function 08/14/21 Range/Units 07:16 Total Bilirubin 2.1 H (0.0-1.0) mg/dL AST 91 H (5-37) U/L ALT 49 H (0-40) U/L Alkaline Phosphatase 165 H (39-117) U/L Albumin 2.8 L D (3.5-5.0) g/dL Microbiology Microbiology Results: Microbiology 08/13/21 08:09 Blood - Venous Blood Culture - Preliminary Prelim: GPC Gram Stain only 08/13/21 08:09 Blood - Venous Blood Culture - Preliminary Prelim: GPC Gram Stain only 08/11/21 01:50 Blood - Venous Blood Culture - Final Staphylococcus aureus 08/11/21 01:50 Blood - Venous Blood Culture - Final Staphylococcus aureus Critical Care Time Critical Care Time (minutes): 120
[2021-08-14] MEDS: dexmedeTOMIDidine HCL/NS 400 MCG/100 ML INFUS..BTL 9.37 MCG IVCONT (12:47)
--- NOTE | 2021-08-14 12:54 | MHC.SL.SWA ---
Speech Pathologist Impression: Risk of Aspiration Due to: Dysphasia Diet Status: Recommend DOWNGRADE to NECTAR THICK liquids, continue Chopped/Advanced (NDD3), recommend pills CRUSHED IN PUREE Liquid Consistency and Strategies for Safe Swallow: Liquid Intake Recommendation: [place] Thick Liquid Intake Strategies: Small Sips No Straws Solid Food Consistency: Dietary Recommendations: Chopped/Advanced (NDD3) Additional Modifications to Solid Foods: Additional Sauces/Gravies. Pt needs supervision at all meals, assistance orienting to tray, utensils, initial preparation of food so that it is in bite sized pieces and Pt can access with cutlery. Aspiration precautions, with monitoring that patient does not overstuff mouth, or take liquid while masticating a solid texture (liquid sip AFTER solid is cleared). Oral Medication Intake: Whole with Puree Please contact the pharmacy regarding appropriate crushable or liquid drug formulations that are available whenever modified delivery is recommended. Compensatory Strategies and Precautions to be Taken for Safe Swallow: Sitting Upright (90 deg) Liquids from Cup Small Bites and Sips Alternate Liquids/Solids Rate of Ingestion Change Oral Check Avoid Specific Foods Supervision While Eating and Drinking for Safe Swallow: Total Supervision (1:1) Foods to Avoid: Tough, difficult to chew solids Swallowing Recommended Treatments: Compens. Strategy Educat. Recommendation for Speech: Inpatient Speech Therapy Comment: Pt seen this a.m. for follow up/assessment of toleration of diet. Nursing reported that Pt had aspiration event last night when taking pills, coughing repeatedly on thin liquids. Nurse had thickened liquids, administered pills crushed in puree, which Patient tolerated well. Pt was seated in bed this morning, frequently coughing, had water jug tipped to attempt to drink from it when I entered, appeared to have spilled water on Bernard, and was asking for a cup. Presented Patient with nectar thick apple juice, Pt took sips from cup, although at times held cup to mouth and slowly accumulated liquid in mouth. Pt tolerated palpation of swallow today, swallow was timely w/laryngeal elevation mildly decreased. Pt noted to frequently burp after drinking, and continued to periodically cough although it did not appear to be related to swallow. Pt had breakfast tray present, but said he wasn't hungry when offered food. Pt then said he wanted to sleep and asked for a sleeping pill. Nursing advised. Recommend DOWNGRADE diet to NECTAR THICK LIQUIDS, continue with CHOPPED ADVANCED (NDD3) solids, PILLS CRUSHED in PUREE. Discussed change with nursing in person, , Outpatient Physical Therapist Assistant advised via secure text, DOORSHAKER changed liquid consistency in diet orders. Frequency/Duration: Date Range for Service Req: Timeline to reassess: [place] Expert Clinican/Clinical Fellow: No Supervisory Statement: I have reviewed and agree with the student/clinical fellow's documentation: N/A Speech Language Pathologist: Divina Moore M.A., CCC-DOORSHAKER
[2021-08-14] MEDS: HYDROmorphone HCl 0.5 MG/0.5 ML SYRINGE IVPUSH ×2 (13:03→13:30)
--- NOTE | 2021-08-14 13:03 | P.PNIM_ITS ---
Subjective Subjective Date of Service: 08/14/21 Interval History: Persistent MSSA bacteremia Extremely agitated with worsening oxygen requirement, 89% on 8L, currently 98% on NRB 15L C/o new onset chest pain and worsening upper back pain; EKG atrial fibrillation without ischemic changes Stated he was going to strangle himself with oxygen tubing and refused CXR I consulted candle pourer Dr Lopez and pt will be transfererd to ICU Review of Systems Review of Systems: Yes all other systems are reviewed and are negative Physical Exam Vital Signs: Vital Signs: Last Vital Signs Temp 96.9 F 08/14/21 11:21 Pulse 87 08/14/21 11:21 Resp 16 08/14/21 11:21 BP 126/61 08/14/21 11:21 Pulse Ox 92 08/14/21 11:21 O2 Del Method 08/14/21 11:21 O2 Flow Rate 4 08/14/21 11:21 BMI result Body Mass Index 31.4 Gen: severe respiratory distress, agitated HEENT: sclera anicteric, moist mucus membranes Neck: supple Lungs: coarse wet inspiratory crackles throughout Heart: irregular, no murmurs Abd: soft, non-tender, somewhat distended Ext: diffuse anasarca Skin: warm/well-perfused Neuro: alert, delirious Psych: agitated Objective Data Active Medications Acetaminophen (Acetaminophen 325 Mg Tablet) 650 mg PO Q6H PRN PRN Reason: Pain, Mild (Pain Scale 1-3) Last Admin: 08/12/21 05:00 Dose: 650 mg Documented By: RAMON Albuterol/Ipratropium (Albuterol/Iprat 2.5/0.5mg 3 Ml Ampul.Neb) 3 ml INHALE RQ4H PRN PRN Reason: wheezing/shortness of breath Last Admin: 08/12/21 16:52 Dose: 3 ml Documented By: REBECA Atorvastatin Calcium (Atorvastatin Calcium 40 Mg Tablet) 40 mg PO BEDTIME MENG Last Admin: 08/13/21 22:22 Dose: 40 mg Documented By: KING Dextrose (Dextrose 50 % 25 Gm/50 Ml Syringe) 25 gm IVPUSH Q15M PRN; Protocol PRN Reason: per Hypoglycemia Standing Ord. Glucose (Glucose Gel 15 Gm Gel..Gram.) 15 gm PO Q15M PRN; Protocol PRN Reason: per Hypoglycemia Standing Ord. Diltiazem HCl 125 mg/ Sodium (Chloride) 125 mls @ 0 mls/hr IVCONT .Q0M [facility]; Protocol Last Titration: 08/10/21 20:18 Dose: 0 mg/hr, 0 mls/hr Documented By: RAMON Thiamine HCl 100 mg/ Sodium (Chloride) 101 mls @ 202 mls/hr IV DAILY [facility] Last Infusion: 08/14/21 10:22 Dose: 0 mls/hr Documented By: JEEVAN Nafcillin Sodium 2 gm/ Sodium (Chloride) 100 mls @ 200 mls/hr IV Q4H [facility] Last Infusion: 08/14/21 12:29 Dose: 0 mls/hr Documented By: DEYSI Insulin Human Lispro (Insulin Lispro 100 Unit/Ml 3 Ml Vial) 0 unit SUBCUT QIDACHS [facility]; Protocol Last Admin: 08/14/21 08:39 Dose: 6 unit Documented By: DEYSI Lidocaine (Lidocaine 4 % Patch Adh..Patch) 1 patch TRANSDERMA DAILY [facility]; Protocol Last Admin: 08/14/21 08:40 Dose: 1 patch Documented By: DEYSI Loperamide HCl (Loperamide Hcl 2 Mg Capsule) 2 mg PO Q4H PRN PRN Reason: Diarrhea Last Admin: 08/11/21 09:21 Dose: 2 mg Documented By: VALENCIA Metoprolol Succinate (Metoprolol Succinate Er 100 Mg Tab.Er.24h) 100 mg PO DAILY [facility]; Protocol Last Admin: 08/14/21 08:39 Dose: 100 mg Documented By: DEYSI Metoprolol Succinate (Metoprolol Succinate Er 50 Mg Tab.Er.24h) 50 mg PO DAILY [facility]; Protocol Last Admin: 08/14/21 08:40 Dose: 50 mg Documented By: DEYSI Ondansetron HCl (Ondansetron Hcl 4 Mg/2 Ml Vial) 4 mg IVPUSH Q8H PRN PRN Reason: Nausea and Vomiting Pantoprazole Sodium (Pantoprazole Sodium 40 Mg/10 Ml Vial) 40 mg IVPUSH BID@0630,1630 [facility] Last Admin: 08/14/21 06:28 Dose: 40 mg Documented By: KING Pharmacy Consult (Consult Rx Vancomycin Dosing) 1 each MISCELLANE DAILY PRN PRN Reason: Consult order Pharmacy Consult (Consult Rx Vancomycin Dosing) 1 each MISCELLANE DAILY [facility] Sodium Bicarbonate (Sodium Bicarbonate 650 Mg Tablet) 650 mg PO BID [facility] Last Admin: 08/14/21 08:40 Dose: 650 mg Documented By: DEYSI Sodium Chloride (0.9 % Sodium Chloride Flush 3 Ml Syringe) 3 ml IVFLUSH QSHIFT [facility] Last Admin: 08/14/21 08:41 Dose: 3 ml Documented By: DEYSI Thiamine HCl (Thiamine Hcl 100 Mg Tablet) 100 mg PO DAILY [facility] Labs CBC & Chem 7: 08/14/21 07:16 08/14/21 07:16 Labs: Laboratory Results - last 24 hr 08/12/21 08/13/21 08/13/21 06:07 15:25 19:33 MCV MCH MCHC RDW Plt Count MPV Absolute Nucleated RBC Nucleated RBC % (auto) Smear Path Review SEE NOTE PT INR Anion Gap Estim Creat Clear Calc Estimated GFR POC Glucose 149 H 214 H Random Glucose Calcium Total Bilirubin AST ALT Alkaline Phosphatase Total Protein Albumin Stool Occult Blood 08/13/21 08/14/21 08/14/21 21:06 07:16 07:16 MCV 86.3 MCH 29.3 MCHC 34.0 RDW 14.1 Plt Count 53 L D MPV 13.7 H Absolute Nucleated RBC 0.110 H Nucleated RBC % (auto) 0.4 H Smear Path Review PT INR Anion Gap 18 Estim Creat Clear Calc 32.1 Estimated GFR 27 POC Glucose Random Glucose 303 H D Calcium 7.3 L Total Bilirubin 2.1 H AST 91 H ALT 49 H Alkaline Phosphatase 165 H Total Protein 7.1 Albumin 2.8 L D Stool Occult Blood POSITIVE 08/14/21 08/14/21 08/14/21 07:16 07:46 11:23 MCV MCH MCHC RDW Plt Count MPV Absolute Nucleated RBC Nucleated RBC % (auto) Smear Path Review PT 25.8 H INR 2.2 H Anion Gap Estim Creat Clear Calc Estimated GFR POC Glucose 293 H 247 H Random Glucose Calcium Total Bilirubin AST ALT Alkaline Phosphatase Total Protein Albumin Stool Occult Blood Microbiology Microbiology Results: Microbiology 08/13/21 08:09 Blood Culture - Preliminary Blood - Venous Prelim: GPC Gram Stain only 08/13/21 08:09 Blood Culture - Preliminary Blood - Venous Prelim: GPC Gram Stain only Assessment and Plan (1) Atrial fibrillation, new onset: Status: Acute Plan hospital d#6 66yo M with insulin-dep DM2, HTN, HLD, ASHLY not on CPAP presented to ED with back pain after falling 1 wk ago without any LOC admitted for new-onset AF/RVR, hypoNa, EMIGDIO/CKD3 developed severe sepsis and found to have Staph aureus bacteremia and cirrhosis [likely EtOH] now with hypoxic respiratory failure and acute encephalopathy # acute hypoxic respiratory failure - multifactorial: pneumonia, fluid overload - will diurese with IV furosemide. O2 via NRB, wean as tolerated # acute encephalopathy - also multifactorial: sepsis, hypoxia, uremia. on thiamine for prevention of Wernicke's. # severe sepsis # MSSA bacteremia/pneumonia - per ID change to nafcillin 2g IV q4h. BCx still positive; awaiting BCx clearance before PICC line is placed. unclear source, will need MRI C-spine to r/o SEA but will need sedation given agitation. also will need GIL but not until respiratory status improves. trend PCT # new-onset AF/RVR - off diltiazem drip and HR controlled on PO metoprolol succinate - [id number] 3, but hold apixaban for now given GIB - TTE with normal LVEF # FOBT positive - PPI, hold apixaban + ASA; Hb stable; given vitamin K for cirrhosis-related coagulopathy # EMIGDIO/CKD3 with hx of proteinuria - SCr stable. continue to hold furosemide, spironolactone + HCTZ. continue to hold losartan. continue bicarbonate supplementation. Nephrology following. if needs further volume consider albumin # hypoNa - hypovolemic; improving # troponin elevation - indeterminate/flat, likely due to sepsis # new dx cirrhosis - likely EtOH. HBV immune, HCV negative. GI consulted, serologic workup pending # transaminasemia - alcoholic vs. septic hepatitis; monitor LFTs which have peaked and are improving # thrombocytopenia - likely due to EtOH + cirrhosis; monitor CBC # diarrhea - C diff negative; prn loperamide # HLD - statin # HTN - hypotensive 2 nights ago due to sepsis. hold all antihypertensives (furosemide, spironolactone, HCTZ, losartan) except metoprolol for rate control; BP now normal # DM2 - hold MTF + basal insulin, give correction-dose lispro # excess EtOH intake - CARE Team + Addiction Med consults, monitor for withdrawal - giving IV thiamine and checking B1 levels # recurrent falls/unsteady gait - PT consult: will need STR when acute medical issues have resolved # VTE ppx: SCDs In my clinical judgment, the patient requires continued hospitalization for the following reasons: ICU level of care for encephalopathy/hypoxia, IV ABX for bacteremia I updated the pt's [place] by telephone of the impending ICU transfer Quality Stroke Does the patient have a stroke diagnosis?: No VTE Prior VTE?: No VTE Risk Level:: Medical - moderate - high VTE Device Contraindication: Treatment Not Indicated VTE Drug Contraindication: N/A - Med Ordered
[2021-08-14 13:16] LABS: Glucose, Whole Blood 262 mg/dL (60-115)
--- NOTE | 2021-08-14 13:22 | PC.NURSE ---
Pt alert and oriented to person, place and time this morning. Patient cooperative. On 5L NC. Lungs sounds dim with expiratory wheezing. Pt had +2 pitting edema bilat LE. At 1140 pt removed oxygen and stated he was going to strangle himself with it and he no longer wanted to live like this . Pt also began desating to 84. Pt lung sounds also sounded increasingly wet. Attempted to replace NC however pt was not cooperative. Dr Watkins made aware. Bedside sitter in place. Stat CXR ordered however pt refused at the time. Pt also increasingly combative with staff and screaming obscenities at staff and sitter. Pt oxygen up to 86 on 8L via [place]. Per Dr. Watkins telephone order, NRB placed on patient. Dr. Watkins at bedside to evaluate patient. Stat Lasix ordered. Pt then began complaining of severe chest pain. No radiation to left shoulder/jaw. Dr. Watkins and Dr. Lopez at bedside. 12 lead EKG performed. IVP Lasix 40mg given at 1228. Pt transferred to ICU with respiratory, nursing supervisor research shop, this RN and RN orientee. Bedside report given to Shruthi, [employer] MAINTENANCE SUPERVISOR.
[2021-08-14] MEDS: propofoL 200 MG/20 ML VIAL 50 MG IVPUSH (13:50)
[2021-08-14] MEDS: Furosemide 500 MG in Container,Empty 0 ML IVCONT (14:46)
[2021-08-14 15:03] LABS: VBG Base Excess -10.8 mmol/L; VBG HCO3 15 mmol/L (22-26); VBG pCO2 37 mmHg; VBG pH 7.23 (7.32-7.43); VBG pO2 50 mmHg
[2021-08-14 15:11] LABS: Ammonia 109 umol/L (13-55)
[2021-08-14 15:15] LABS: Lactic Acid 1.9 mmol/L (0.5-2.0)
[2021-08-14] MEDS: Sodium Bicarbonate 8.4% 50 MEQ/50 ML SYRINGE IVPUSH (15:26)
[2021-08-14] MEDS: Bumetanide 1 MG/4 ML VIAL 2 MG IVPUSH (15:27)
[2021-08-14] MEDS: Insulin Regular/NS 100 UNIT/100 ML PLAST..BAG IVCONT (15:49)
[2021-08-14 15:51] LABS: Glucose, Whole Blood 193 mg/dL (60-115)
[2021-08-14 16:06] LABS: Venous Blood Gas Refer to POC result
[2021-08-14 17:08] LABS: Glucose, Whole Blood 161 mg/dL (60-115)
[2021-08-14] MEDS: Lactulose 20 GM/30 ML SOLUTION 40 GM G-TUBE ×2 (17:32→22:55)
--- NOTE | 2021-08-14 18:01 | P.CNPS_ITS ---
History of Present Illness Date of Service: 08/14/2021 Chief Complaint: new onset atrial fibrillation moni HPI Narrative: Levi is a 66 y.o. Male who has a past medical history of insulin dependent diabetes, hypertension, hyperlipidemia, chronic kidney disease stage 3, echocardiogram June 12 showed EF 55-60%. He came to ER on 08/09/2021 due to upper back and shoulder pain x1 week, has had multiple falls without head injury, complaining of constant pain and headache. In the ED, pt found to have atrial fibrillation with rapid ventricular response, given IV diltiazem. Pt was admitted to [facility] for further workup of atrial fibrillation with RVR acute on chronic kidney disease, mild hyponatremia. Pr has been a chronic alcohol abuser, he drank 8 beers over the weekend. Over the course of hospitalization, pt was found to have elevated LFTs / lipase and CT showed findings of cirrhosis. Pb negrete this afternoon pt was transferred to ICU due to respiratory distress, severe acute delirium, acute encephalopathy.? Psych consult requested by hospitalist, as pt was extremely agitated, stated he was going to strangle himself with oxygen tubing and refused CXR. Pt?s family denies that he has a past psychiatric hx.? Past Psychiatric History: Denies [facility] Medical History Allergic rhinitis Erectile dysfunction Obstructive sleep apnea Retinopathy Tubular adenoma Vitamin D deficiency Surgical History History of surgical procedure on eye proper using laser Hx of cataract surgery Hx of cholecystectomy Hx of colonoscopy with polypectomy Diagnostics Vital Signs (24Hr): Vital Signs - 24 hr 08/13/21 19:36 08/13/21 23:41 08/14/21 03:34 Temperature 98.9 F 98.6 F 98.6 F Pulse Rate 101 H 102 H 68 Respiratory Rate 19 20 20 Blood Pressure 112/62 149/83 H 121/56 L Pulse Oximetry 96 96 93 Oxygen Delivery Method Nasal Cannula Nasal Cannula Nasal Cannula Oxygen Flow Rate 4 5 2 Fraction of Inspired Oxygen 08/14/21 07:47 08/14/21 11:21 08/14/21 11:40 Temperature 97.1 F 96.9 F Pulse Rate 129 H 87 Respiratory Rate 18 16 Blood Pressure 134/69 126/61 Pulse Oximetry 97 92 84 L Oxygen Delivery Method Nasal Cannula Nasal Cannula Room Air Oxygen Flow Rate 4 4 Fraction of Inspired Oxygen 08/14/21 11:50 08/14/21 11:55 08/14/21 12:30 Temperature Pulse Rate 90 Respiratory Rate 26 H Blood Pressure 138/71 Pulse Oximetry 86 L 97 100 Oxygen Delivery Method Nasal Cannula Non-Rebreather Mask Non-Rebreather Mask Oxygen Flow Rate 8 15 15 Fraction of Inspired Oxygen 08/14/21 15:06 08/14/21 16:00 08/14/21 15:00 Temperature 96.2 F L Pulse Rate 64 66 Respiratory Rate 14 13 12 Blood Pressure 74/42 L 92/47 L Pulse Oximetry 91 L 88 L Oxygen Delivery Method High Flow Nasal Cannula High Flow Nasal Cannula Oxygen Flow Rate 55 55 Fraction of Inspired Oxygen 80 80 08/14/21 14:11 08/14/21 16:29 08/14/21 12:51 Temperature Pulse Rate 63 76 85 Respiratory Rate 12 38 H Blood Pressure 90/42 L 96/58 L 127/66 Pulse Oximetry 86 L 96 Oxygen Delivery Method High Flow Nasal Cannula Oxygen Flow Rate Fraction of Inspired Oxygen BMI result Body Mass Index 31.4 Labs Results: 08/14/21 07:16 08/14/21 07:16 Labs: Laboratory Results - last 48 hr 08/12/21 08/12/21 08/12/21 06:07 18:59 21:34 WBC 25.1 H RBC 3.83 L Hgb 11.3 L Hct 33.6 L MCV 87.7 MCH 29.5 MCHC 33.6 RDW 14.3 Plt Count 73 L MPV Not Reportable Absolute Nucleated RBC 0.350 H Nucleated RBC % (auto) 1.4 H Smear Path Review SEE NOTE PT INR VBG pH VBG pCO2 VBG pO2 VBG HCO3 VBG O2 Saturation VBG Base Excess Sodium Potassium Chloride Carbon Dioxide Anion Gap BUN Creatinine Estim Creat Clear Calc Estimated GFR POC Glucose 99 Random Glucose Lactic Acid Calcium Iron TIBC % Saturation Unsat Iron Binding Ferritin Total Bilirubin AST ALT Alkaline Phosphatase Ammonia Total Protein Albumin Procalcitonin Stool Occult Blood Vancomycin Trough 08/13/21 08/13/21 08/13/21 02:24 07:10 08:09 WBC RBC Hgb Hct MCV MCH MCHC RDW Plt Count MPV Absolute Nucleated RBC Nucleated RBC % (auto) Smear Path Review PT INR VBG pH VBG pCO2 VBG pO2 VBG HCO3 VBG O2 Saturation VBG Base Excess Sodium Potassium Chloride Carbon Dioxide Anion Gap BUN Creatinine Estim Creat Clear Calc Estimated GFR POC Glucose 102 112 Random Glucose Lactic Acid Calcium Iron TIBC % Saturation Unsat Iron Binding Ferritin Total Bilirubin AST ALT Alkaline Phosphatase Ammonia Total Protein Albumin Procalcitonin Stool Occult Blood Vancomycin Trough 17.3 08/13/21 08/13/21 08/13/21 08:09 08:09 08:09 WBC 25.9 H RBC 3.84 L Hgb 11.4 L Hct 33.4 L MCV 87.0 MCH 29.7 MCHC 34.1 RDW 14.4 Plt Count 72 L MPV 13.8 H Absolute Nucleated RBC 0.220 H Nucleated RBC % (auto) 0.8 H Smear Path Review PT 25.4 H INR 2.2 H VBG pH VBG pCO2 VBG pO2 VBG HCO3 VBG O2 Saturation VBG Base Excess Sodium 133 L Potassium 4.3 Chloride 106 Carbon Dioxide 13 L Anion Gap 18 BUN 121 H Creatinine 2.50 H Estim Creat Clear Calc 31.3 Estimated GFR 26 POC Glucose Random Glucose 105 Lactic Acid Calcium 7.1 L Iron 61 TIBC 163 L % Saturation 37 Unsat Iron Binding 102 Ferritin 1412 H Total Bilirubin 1.9 H AST 139 H ALT 64 H Alkaline Phosphatase 179 H D Ammonia Total Protein 6.5 Albumin 2.2 L Procalcitonin Stool Occult Blood Vancomycin Trough 08/13/21 08/13/21 08/13/21 08:09 08:09 11:13 WBC RBC Hgb Hct MCV MCH MCHC RDW Plt Count MPV Absolute Nucleated RBC Nucleated RBC % (auto) Smear Path Review PT INR VBG pH VBG pCO2 VBG pO2 VBG HCO3 VBG O2 Saturation VBG Base Excess Sodium 133 L Potassium 4.3 Chloride 107 Carbon Dioxide 13 L Anion Gap 17 BUN 121 H Creatinine 2.42 H Estim Creat Clear Calc 32.3 Estimated GFR 27 POC Glucose 115 Random Glucose 104 Lactic Acid Calcium 7.1 L Iron TIBC % Saturation Unsat Iron Binding Ferritin Total Bilirubin AST ALT Alkaline Phosphatase Ammonia Total Protein Albumin Procalcitonin 5.67 Stool Occult Blood Vancomycin Trough 08/13/21 08/13/21 08/13/21 15:25 19:33 21:06 WBC RBC Hgb Hct MCV MCH MCHC RDW Plt Count MPV Absolute Nucleated RBC Nucleated RBC % (auto) Smear Path Review PT INR VBG pH VBG pCO2 VBG pO2 VBG HCO3 VBG O2 Saturation VBG Base Excess Sodium Potassium Chloride Carbon Dioxide Anion Gap BUN Creatinine Estim Creat Clear Calc Estimated GFR POC Glucose 149 H 214 H Random Glucose Lactic Acid Calcium Iron TIBC % Saturation Unsat Iron Binding Ferritin Total Bilirubin AST ALT Alkaline Phosphatase Ammonia Total Protein Albumin Procalcitonin Stool Occult Blood POSITIVE Vancomycin Trough 08/14/21 08/14/21 08/14/21 07:16 07:16 07:16 WBC 27.4 H RBC 3.51 L Hgb 10.3 L Hct 30.3 L MCV 86.3 MCH 29.3 MCHC 34.0 RDW 14.1 Plt Count 53 L D MPV 13.7 H Absolute Nucleated RBC 0.110 H Nucleated RBC % (auto) 0.4 H Smear Path Review PT 25.8 H INR 2.2 H VBG pH VBG pCO2 VBG pO2 VBG HCO3 VBG O2 Saturation VBG Base Excess Sodium 134 L Potassium 4.1 Chloride 106 Carbon Dioxide 14 L Anion Gap 18 BUN 131 H Creatinine 2.44 H Estim Creat Clear Calc 32.1 Estimated GFR 27 POC Glucose Random Glucose 303 H D Lactic Acid Calcium 7.3 L Iron TIBC % Saturation Unsat Iron Binding Ferritin Total Bilirubin 2.1 H AST 91 H ALT 49 H Alkaline Phosphatase 165 H Ammonia Total Protein 7.1 Albumin 2.8 L D Procalcitonin Stool Occult Blood Vancomycin Trough 08/14/21 08/14/21 08/14/21 07:46 11:23 13:10 WBC RBC Hgb Hct MCV MCH MCHC RDW Plt Count MPV Absolute Nucleated RBC Nucleated RBC % (auto) Smear Path Review PT INR VBG pH VBG pCO2 VBG pO2 VBG HCO3 VBG O2 Saturation VBG Base Excess Sodium Potassium Chloride Carbon Dioxide Anion Gap BUN Creatinine Estim Creat Clear Calc Estimated GFR POC Glucose 293 H 247 H 262 H Random Glucose Lactic Acid Calcium Iron TIBC % Saturation Unsat Iron Binding Ferritin Total Bilirubin AST ALT Alkaline Phosphatase Ammonia Total Protein Albumin Procalcitonin Stool Occult Blood Vancomycin Trough 08/14/21 08/14/21 08/14/21 14:52 14:53 14:59 WBC RBC Hgb Hct MCV MCH MCHC RDW Plt Count MPV Absolute Nucleated RBC Nucleated RBC % (auto) Smear Path Review PT INR VBG pH 7.23 L VBG pCO2 37 VBG pO2 50 VBG HCO3 15 L VBG O2 Saturation 63.0 VBG Base Excess -10.8 Sodium Potassium Chloride Carbon Dioxide Anion Gap BUN Creatinine Estim Creat Clear Calc Estimated GFR POC Glucose Random Glucose Lactic Acid 1.9 Calcium Iron TIBC % Saturation Unsat Iron Binding Ferritin Total Bilirubin AST ALT Alkaline Phosphatase Ammonia 109 H Total Protein Albumin Procalcitonin Stool Occult Blood Vancomycin Trough 08/14/21 08/14/21 15:46 17:04 WBC RBC Hgb Hct MCV MCH MCHC RDW Plt Count MPV Absolute Nucleated RBC Nucleated RBC % (auto) Smear Path Review PT INR VBG pH VBG pCO2 VBG pO2 VBG HCO3 VBG O2 Saturation VBG Base Excess Sodium Potassium Chloride Carbon Dioxide Anion Gap BUN Creatinine Estim Creat Clear Calc Estimated GFR POC Glucose 193 H 161 H Random Glucose Lactic Acid Calcium Iron TIBC % Saturation Unsat Iron Binding Ferritin Total Bilirubin AST ALT Alkaline Phosphatase Ammonia Total Protein Albumin Procalcitonin Stool Occult Blood Vancomycin Trough Imaging Radiology Impressions: ITS Impressions Cervical Spine CT 08/09/21 04:36 IMPRESSION: No acute intracranial pathology. No cervical spine fracture or malalignment. Head CT 08/09/21 04:36 IMPRESSION: No acute intracranial pathology. No cervical spine fracture or malalignment. Chest X-Ray 08/09/21 04:48 IMPRESSION: Unremarkable examination. Chest X-Ray 08/11/21 01:30 IMPRESSION: Unremarkable examination. Abdomen/Pelvis CT 08/11/21 10:41 IMPRESSION: Cirrhotic-appearing liver. Small amount of ascites. Wall thickening of the colon question representing colitis versus changes related to liver disease. Bilateral lower lobe infiltrates, right greater than left and tiny bilateral pleural effusions. Fleischner guidelines were followed. Chest X-Ray 08/12/21 17:11 IMPRESSION: Low lung volume. No acute abnormality of chest. Venous Duplex 08/12/21 17:28 IMPRESSION: No DVT demonstrated in the left lower extremity. Abdomen Ultrasound 08/13/21 15:30 IMPRESSION: Very limited exam. Cirrhotic-appearing liver and small amount of ascites. Chest X-Ray 08/14/21 14:26 IMPRESSION: Right upper lobe infiltrate represents interval worsening from the previous study. Venous Duplex 08/14/21 15:26 IMPRESSION: No DVT demonstrated in the bilateral upper extremities Chest X-Ray 08/14/21 16:55 FINDINGS/IMPRESSION: Final images shows an enteric tube with tip terminating over the distal gastric lumen. Nonobstructive bowel gas pattern. Pulmonary findings without significant change. Mental Status Exam Mental Status Exam Narrative: Alert but not oriented x 3. He is in hospital attire, okay grooming. Poor eye contact, inattentive. Difficult to engage but calm. Denies SI/SIB/HI upon inquiry. Denies A/VH or delusional thought content. Insight/ Judgment is poor. Medications Medications Current Medications Acetaminophen (Acetaminophen 325 Mg Tablet) 650 mg PO Q6H PRN PRN Reason: Pain, Mild (Pain Scale 1-3) Last Admin: 08/12/21 05:00 Dose: 650 mg Albuterol/Ipratropium (Albuterol/Iprat 2.5/0.5mg 3 Ml Ampul.Neb) 3 ml INHALE RQ4H PRN PRN Reason: wheezing/shortness of breath Last Admin: 08/12/21 16:52 Dose: 3 ml Atorvastatin Calcium (Atorvastatin Calcium 40 Mg Tablet) 40 mg PO BEDTIME MENG Last Admin: 08/13/21 22:22 Dose: 40 mg Dextrose (Dextrose 50 % 25 Gm/50 Ml Syringe) 25 gm IVPUSH Q15M PRN; Protocol PRN Reason: per Hypoglycemia Standing Ord. Glucose (Glucose Gel 15 Gm Gel..Gram.) 15 gm PO Q15M PRN; Protocol PRN Reason: per Hypoglycemia Standing Ord. Diltiazem HCl 125 mg/ Sodium (Chloride) 125 mls @ 0 mls/hr IVCONT .Q0M MENG; Protocol Last Titration: 08/10/21 20:18 Dose: 0 mg/hr, 0 mls/hr Thiamine HCl 100 mg/ Sodium (Chloride) 101 mls @ 202 mls/hr IV DAILY [facility] Last Infusion: 08/14/21 10:22 Dose: Infused Nafcillin Sodium 2 gm/ Sodium (Chloride) 100 mls @ 200 mls/hr IV Q4H MENG Last Admin: 08/14/21 17:33 Dose: 200 mls/hr Sodium Bicarbonate 150 meq/ (Sterile Water) 1,000 mls @ 60 mls/hr IV .[id number] [facility] Last Admin: 08/14/21 14:49 Dose: 60 mls/hr Insulin Human Regular (Myxredlin) 100 unit in 100 mls @ 2 mls/hr IVCONT .Q24H [facility] Last Admin: 08/14/21 15:49 Dose: 2 mls/hr Furosemide 500 mg/ IV (Miscellaneous Supplies) 50 mls @ 1 mls/hr IVCONT .Q24H MENG Last Admin: 08/14/21 14:46 Dose: 10 mg/hr, 1 mls/hr Dexmedetomidine HCl (Precedex) 400 mcg in 100 mls @ 0 mls/hr IVCONT .Q0M MENG; Protocol Last Titration: 08/14/21 14:26 Dose: 0.2 mcg/kg/hr, 4.69 mls/hr Norepinephrine Bitartrate (Levophed) 8 mg in 250 mls @ 0 mls/hr IVCONT .Q0M MENG; Protocol Last Admin: 08/14/21 16:29 Dose: 0.05 mcg/kg/min, 8.78 mls/hr Insulin Human Lispro (Insulin Lispro 100 Unit/Ml 3 Ml Vial) 0 unit SUBCUT QIDACHS MENG; Protocol Last Admin: 08/14/21 17:26 Dose: Not Given Lactulose (Lactulose 20 Gm/30 Ml Solution) 40 gm G-TUBE Q6H MENG Last Admin: 08/14/21 17:32 Dose: 40 gm Lidocaine (Lidocaine 4 % Patch Adh..Patch) 1 patch TRANSDERMA DAILY [facility]; Protocol Last Admin: 08/14/21 08:40 Dose: 1 patch Loperamide HCl (Loperamide Hcl 2 Mg Capsule) 2 mg PO Q4H PRN PRN Reason: Diarrhea Last Admin: 08/11/21 09:21 Dose: 2 mg Metoprolol Succinate (Metoprolol Succinate Er 100 Mg Tab.Er.24h) 100 mg PO DAILY [facility]; Protocol Last Admin: 08/14/21 08:39 Dose: 100 mg Metoprolol Succinate (Metoprolol Succinate Er 50 Mg Tab.Er.24h) 50 mg PO DAILY [facility]; Protocol Last Admin: 08/14/21 08:40 Dose: 50 mg Ondansetron HCl (Ondansetron Hcl 4 Mg/2 Ml Vial) 4 mg IVPUSH Q8H PRN PRN Reason: Nausea and Vomiting Pantoprazole Sodium (Pantoprazole Sodium 40 Mg/10 Ml Vial) 40 mg IVPUSH BID@0630,1630 [facility] Last Admin: 08/14/21 15:24 Dose: 40 mg Pharmacy Consult (Consult Rx Vancomycin Dosing) 1 each MISCELLANE DAILY PRN PRN Reason: Consult order Pharmacy Consult (Consult Rx Vancomycin Dosing) 1 each MISCELLANE DAILY [facility] Sodium Bicarbonate (Sodium Bicarbonate 650 Mg Tablet) 650 mg PO BID [facility]ENG Last Admin: 08/14/21 08:40 Dose: 650 mg Sodium Chloride (0.9 % Sodium Chloride Flush 3 Ml Syringe) 3 ml IVFLUSH QSHIFT MENG Last Admin: 08/14/21 14:56 Dose: 3 ml Thiamine HCl (Thiamine Hcl 100 Mg Tablet) 100 mg PO DAILY [facility] Allergies Allergies Allergy/AdvReac Type Severity Reaction Status Date / Time FRESH FRUIT Allergy Unknown ITCHY EARS Uncoded 06/03/21 10:48 THROAT Sesonal allergies Allergy Unknown itchiness Uncoded 06/03/21 10:48 some fresh fruit Allergy Unknown itchiness Uncoded 06/03/21 10:48 Assessment & Plan Assessment & Plan (1) Acute kidney injury: Status: Acute Code(s): N17.9 - Acute kidney failure, unspecified (2) Atrial fibrillation, new onset: Status: Acute Code(s): I48.91 - Unspecified atrial fibrillation (3) CKD (chronic kidney disease) stage 3, GFR 30-59 ml/min: Qualifiers: Chronic kidney disease stage 3 subtype: stage 3a (GFR 45-59) Qualified Code(s): N18.31 - Chronic kidney disease, stage 3a Status: Acute Code(s): N18.30 - Chronic kidney disease, stage 3 unspecified (4) Type 2 diabetes mellitus with hyperglycemia, with long-term current use of insulin: Status: Acute Code(s): E11.65 - Type 2 diabetes mellitus with hyperglycemia; Z79.4 - shelter (current) use of insulin (5) Type 2 diabetes mellitus with chronic kidney disease: Qualifiers: Diabetes mellitus usp insulin use: with 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 Male who has a past medical history of insulin dependent diabetes, hypertension, hyperlipidemia, chronic kidney disease stage 3, echocardiogram June 12 showed EF 55-60%. He came to ER on 08/09/2021 due to upper back and shoulder pain x1 week, has had multiple falls without head injury, complaining of constant pain and headache. In the ED, pt found to have atrial fibrillation with rapid ventricular response, given IV diltiazem. Pt was admitted to [facility] for further workup of atrial fibrillation with RVR acute on chronic kidney disease, mild hyponatremia. Pr has been a chronic alcohol abuser, he drank 8 beers over the weekend. Over the course of hospitalization, pt was found to have elevated LFTs / lipase and CT showed findings of cirrhosis. Pt is now in ICU for respiratory distress, delirium. Plan: -Consult with CARE Team and recovery team prior to discharge for OP alcohol abuse services -Pt does not require a 1:1 safety check, as he is sleeping soundly, SI statements made in context of acute delirium and pt is not oriented or a reliable historian. No imminent safety concerns.? -Patient is not presenting?with any safety concerns. Patient does not have a psychiatric history. There are no mood or behavioral concerns. At this time no psychiatric interventions are indicated. However, if this changes please consult with Psychiatry again.? I spent minutes with the patient and/or on the patient floor today, greater than?50% of which was spent counseling/coordinating care. Patient educated on: other
--- NOTE | 2021-08-14 19:31 | P.PCNCC_ITS ---
Procedures Date of Service Date of Service: 08/14/21 Central Line Placement Left SC: Central Line Comments: PROCEDURE:? Insertion left subclavian central venous line. INDICATION:? Acute respiratory failure, acute renal failure, metabolic encephalopathy.? For IV access; blood draws, respiratory monitoring. ANESTHESIA:? Local plus Precedex and propofol infusions. PROCEDURE:? Vascular ultrasound was used to examine the left side.? A medium sized compressible infraclavic SCL vein was identified and confirmed by color johana Doppler. The supraclavic SCL vein was less well seen. The left subclavian areas was widely prepped and draped in full sterile fashion.? Local anesthesia was applied to the subclavian area.? Cannulation of the subclavian vein laterally under US guidance was attempted but failed (I think bec of resp variation). The SCL vein was therefore approached medially without US guidance and was cannulated on the 1st pass of the 18 gauge thin wall.? The wire was threaded without incident.? A 7 Mongolian by 20 cm triple-lumen catheter was advanced into the vein up to the hub via the Seldinger technique without incident.? There was good blood return x3.? The catheter was sutured x3 and a Biopatch and dry sterile dressing were applied. Postop chest x-ray showed the line in good position with no pneumothorax.? The patient tolerated the procedure well w no complications. Consent for Procedure: Emergent-no informed consent obtained
[2021-08-14 20:06] LABS: Glucose, Whole Blood 118 mg/dL (60-115)
[2021-08-14] MEDS: Albuterol/Iprat 2.5/0.5MG 3 ML AMPUL.NEB INHALE (22:00)
[2021-08-14 22:27] LABS: Hematocrit 30.9 % (42.0-52.0); Hemoglobin 10.6 g/dl (14.0-18.0); Mean Corpuscular HGB Conc 34.3 g/dl (31.0-36.0); Mean Corpuscular Volume 87.5 fL (80.0-98.0); Mean Platelet Volume 12.5 fL (9.4-12.4); NRBC Pct Auto 0.8 /100WBC (0.0-0.2); Red Blood Count 3.53 X10*6/uL (4.60-5.80); Red Cell Distribution Width 14.7 % (11.0-16.0)
[2021-08-14 22:28] LABS: Venous Blood Gas Refer to POC result
[2021-08-14 22:29] LABS: VBG Base Excess -8.1 mmol/L; VBG HCO3 18 mmol/L (22-26); VBG pCO2 39 mmHg; VBG pH 7.26 (7.32-7.43); VBG pO2 63 mmHg
[2021-08-14 22:34] LABS: Platelet Count 45 X10*3/uL (160-400)
--- NOTE | 2021-08-14 22:40 | W.PM.CCHP ---
Procedures Date of Service Date of Service: 08/14/21 Intubation Consent for Procedure: Emergent-no informed consent obtained Time out performed: Yes Sedative: etomidate Mg given: 30 Paralytic: rocuronium Mg given: 50 Laryngoscope: fiber optic video scope ET tube size: 7.5 ET tube uncuffed: Yes Tube secured depth (cm): 25 Tube secured location: lips Tube placement confirmation: visualized tube passing through cords, equal breath sounds bilaterally, no breath sounds over epigastrium and confirmation by capnometry Patient tolerated procedure: well Intubation complications: none and other (On CXR the end of the ET tube seems very close to the prince will pull the tube and settle it at 23 at the lip )
[2021-08-14 22:47] LABS: Alanine Aminotransferase 37 U/L (0-40); Albumin Level 2.7 g/dL (3.5-5.0); Alkaline Phosphatase 169 U/L (39-117); Anion Gap 15 (12-20); Aspartate Amino Transferase 84 U/L (5-37); B Type Natriuretic Peptide 809 pg/mL (<100); Bilirubin Total 2.9 mg/dL (0.0-1.0); Calcium 7.2 mg/dL (8.4-10.2); Carbon Dioxide 19 mmol/L (22-29); Chloride 107 mmol/L (96-108); Creatinine Clr Calc Pharmacy 30.3; Estimated Glomerular Filt Rate 25; Glucose Random 98 mg/dL (60-115); Potassium 4.3 mmol/L (3.3-5.1); Sodium 137 mmol/L (135-145); Total Protein 7.3 g/dL (6.5-8.0)
[2021-08-14 22:54] LABS: Band Neutrophils Percent 3 % (3-5); Lymphocytes Absolute Manual 0.3 X10*3/uL (1.2-4.9); Lymphocytes Percent Manual 1 % (20-40); Monocytes Absolute Manual 1.1 X10*3/uL (0.1-1.2); Monocytes Percent Manual 4 % (2-11); Neutrophils Absolute Manual 26.3 X10*3/uL (2.0-8.3); Neutrophils Percent Manual 91 % (45-73); Promyelocytes Absolute 0.3 X10*3/uL; Promyelocytes Percent 1 %
[2021-08-14 22:55] LABS: Acanthocytes 1+ (0-2) /OIF; Burr Cells 2+ (3-5) /OIF; Giant Platelet PRESENT; Large Platelet PRESENT; Microcytosis 1+ (5-14) /OIF; Platelet Estimate DECREASED (NORMAL); Platelet Morphology Comment AGRANULAR; RBC Morphology NOTED
[2021-08-14 22:56] LABS: Dohle Bodies PRESENT; Polychromasia 1+ (0-2) /OIF; Toxic Granulation PRESENT; Toxic Vacuolation PRESENT
[2021-08-14 22:57] LABS: Blood Urea Nitrogen 142 mg/dL (9-16)
[2021-08-14] MEDS: Atorvastatin Calcium 40 MG TABLET PO (22:57)
[2021-08-14] MEDS: Sodium Bicarbonate 650 MG TABLET G-TUBE (22:57)
--- NOTE | 2021-08-14 23:00 | P.EN_ITS ---
Documented by User: NARA Jason 08/15/21 19:25 Event Note Date of Service: 08/15/21 Event Note: Approximately 22:15pm, while I was walking by the room; I noticed the patient had respiratory distress despite of being on high-flow O2, patient was breathing heavily and rapidly, the patient has had some bleeding in his mouth but there is also the concern that these was coming from the lungs as the patient coughs an bloody sputum is being suction by the respiratory therapist, the patient is clearly using accessory muscles, he had audible wheezing and right upper lung more than left crackling and rhonchi, respiratory rate is 32 and his O2 sat is 88%; on 60 L with 100% FiO2.? A breathing treatment was given but it did not make any difference. Full set of laboratories were ordered.? CBC, Chem 7, BNP and a venous blood gas. At this point, I was concerned that the patient was going to become a crash airway therefore the decision to intubate was made before the patient fully fatigues and develops respiratory arrest.? This clearly represented a life- threatening situation and the patient has to be done emergently. The above was discussed in detail with Dr. Lopez who agrees. Assessment: Worsened hypoxic respiratory failure r/o Pulm Edema, PNA, ARDS Oral and suspected alveolar hemorrhage Worsening thrombocytopenia Coagulopathy due to liver disease Metabolic acidosis Ongoing bacteremia Plan As above mentioned, rapid sequence intubation was quickly planned, after taking a time-out and preparing medications, patient was preoxygenated, etomidate and rocuronium were given and the patient was successfully intubated.? Please see separate note for details. Current vent settings AC 14, VT 400, FiO2 90%; peep 8 Post intubation chest x-ray IMPRESSION: *Endotracheal tube terminating 1 cm superior to the prince. *Enteric tube terminating in the region of the gastric antrum. *Left subclavian catheter terminating projection with the right atrium. *Multifocal airspace disease with findings most pronounced the right upper lung zone slightly increased in prominence compared with 08/14/2021 findings may represent infection. *Newly identified left base airspace opacity compared with 08/14/2021 which may present atelectasis and/or consolidation. Bloody sputum contents were obtained and sent for culture Gram stain. A CT of the chest will be done to further define the suspicion for pneumonia, this was discussed in detail with Dr. Gutierres who had reviewed previous x-rays and thus far does not believe that there is infiltrates however it is possible the patient might have aspirated as the last couple hours. Given the ongoing decrease of his platelet count and new bleed I will transfuse him 1 pack of platelets. Laboratories were obtained and reviewed, there is a ongoing leukocytosis with left shift and toxic granulocytes present.? His renal function is slightly worsened, however he will likely need further diuresis. I did speak to the patient is Teto Carrizales (they live together x 17 years) who is aware of all the above and agrees to palettes transfusion, consent signed, pt's RN Phyllis aware and spoke to her as well. CHEST CT NO CONTRASTIMPRESSION: *Dense multifocal right upper lobe consolidation and mild multifocal right middle and left upper lobe consolidation. Findings are suspicious for infection. *Small bilateral pleural effusions and bibasilar dependent compressive atelectasis of the lungs. *Endotracheal tube terminating 2.5 cm superior to the prince. *Left subclavian catheter terminating at the cavoatrial junction. *Enteric tube terminating with in the gastric antrum. FEET CT IMPRESSION Unenhanced CT of the left and right feet. *Diffuse extensive subcutaneous edema and possible inflammatory changes. Findings are most pronounced along the dorsum of the left and right midfoot regions. Findings may represent a combination of edema and/or cellulitis. No soft tissue emphysema. *Marked left mid foot chronic degenerative changes and multifocal midfoot osseous fragments. Findings may represent a combination of neuropathic arthropathy and advanced osteoarthritis (Charcot foot). *Marked right mid foot chronic degenerative changes. *Diffuse vascular calcifications. Vancomycin and Zosyn x 1 dose each given although the pt already on Nafcillin, but to cover MRSA and G(-) organisms ; will disccuss with Dr Lopez in am so ABX can be adjusted to renal function by pharmacy. Total critical time spent with this patient due to the above-mentioned life- threatening situation was 90 minutes separate from any procedures listed. ? Documented by User: Diego Lopez MD 09/22/21 14:20 Event Note Date of Service: 09/22/21
[2021-08-14 23:02] LABS: Procalcitonin 2.72 ng/mL
[2021-08-14] MEDS: Phytonadione (Vit K1) 10 MG in 0.9 % Sodium Chloride 50 ML 51 MG IV (23:09)
[2021-08-14 23:17] LABS: Glucose, Whole Blood 99 mg/dL (60-115)
[2021-08-15] VITALS (45 sets, daily range): BP systolic 91–150; BP diastolic 39–64; PULSE 65–152; RESP 11–25; TEMP 34.6–36.4; O2SAT 92–100; BMI 31.4
[2021-08-15 00:19] LABS: Glucose, Whole Blood 112 mg/dL (60-115)
[2021-08-15] MEDS: 0.9 % Sodium Chloride Flush 3 ML SYRINGE IVFLUSH ×4 (02:31→23:55)
[2021-08-15] MEDS: vancomycin HCL 500 MG in 0.9 % Sodium Chloride 100 ML 110 MG IV (02:51)
[2021-08-15] MEDS: propofoL 1,000 MG/100 ML VIAL 11.24 MG IVCONT (03:02)
[2021-08-15] MEDS: Piperacillin Sodium/Tazobactam 3.375 GM in 0.9 % Sodium Chloride 50 ML IV ×4 (03:55→23:49)
[2021-08-15 05:33] LABS: VBG Base Excess -6.5 mmol/L; VBG HCO3 18 mmol/L (22-26); VBG pCO2 35 mmHg; VBG pH 7.32 (7.32-7.43); VBG pO2 53 mmHg
[2021-08-15 05:56] LABS: Ammonia 123 umol/L (13-55)
[2021-08-15 05:57] LABS: OBS Int Ctl Valid YES; OBS1 POSITIVE (NEGATIVE)
[2021-08-15 06:00] LABS: Hematocrit 27.8 % (42.0-52.0); Hemoglobin 9.4 g/dl (14.0-18.0); Lactic Acid 1.5 mmol/L (0.5-2.0); Mean Corpuscular HGB Conc 33.8 g/dl (31.0-36.0); Mean Corpuscular Hemoglobin 29.7 pg (27.0-33.0); Mean Corpuscular Volume 87.7 fL (80.0-98.0); Mean Platelet Volume 11.8 fL (9.4-12.4); NRBC Pct Auto 0.8 /100WBC (0.0-0.2); Red Blood Count 3.17 X10*6/uL (4.60-5.80); Red Cell Distribution Width 14.6 % (11.0-16.0); White Blood Count 24.3 X10*3/uL (4.8-10.8)
[2021-08-15 06:01] LABS: Platelet Count 74 X10*3/uL (160-400)
[2021-08-15 06:03] LABS: INTERNATIONAL NORM RATIO 1.9 (0.9-1.1); Prothrombin Time 21.4 SEC (9.9-13.0)
[2021-08-15 06:12] LABS: Alanine Aminotransferase 30 U/L (0-40); Albumin Level 2.3 g/dL (3.5-5.0); Alkaline Phosphatase 148 U/L (39-117); Anion Gap 17 (12-20); Aspartate Amino Transferase 73 U/L (5-37); Bilirubin Total 3.4 mg/dL (0.0-1.0); Calcium 7.1 mg/dL (8.4-10.2); Carbon Dioxide 20 mmol/L (22-29); Chloride 106 mmol/L (96-108); Creatinine Clr Calc Pharmacy 29.9; Estimated Glomerular Filt Rate 24; Glucose Random 162 mg/dL (60-115); Magnesium 2.8 mg/dL (1.6-2.6); Potassium 4.3 mmol/L (3.3-5.1); Sodium 139 mmol/L (135-145); Total Protein 6.5 g/dL (6.5-8.0)
[2021-08-15] MEDS: Pantoprazole Sodium 40 MG/10 ML VIAL IVPUSH ×2 (06:15→15:41)
[2021-08-15] MEDS: Sodium Bicarbonate 650 MG TABLET G-TUBE ×4 (06:15→20:34)
[2021-08-15 06:16] LABS: B Type Natriuretic Peptide 675 pg/mL (<100)
[2021-08-15] MEDS: Phytonadione (Vit K1) 10 MG in 0.9 % Sodium Chloride 50 ML 51 MG IV ×4 (06:16→20:25)
[2021-08-15 06:17] LABS: Glucose, Whole Blood 144 mg/dL (60-115)
[2021-08-15] MEDS: Lactulose 20 GM/30 ML SOLUTION 40 GM G-TUBE ×4 (06:18→23:49)
[2021-08-15 06:23] LABS: Blood Urea Nitrogen 143 mg/dL (9-16)
[2021-08-15 06:30] LABS: Procalcitonin 2.96 ng/mL
[2021-08-15 06:47] LABS: Venous Blood Gas Refer to POC result
[2021-08-15] MEDS: Nafcillin Sodium 2 GM in 0.9 % Sodium Chloride 100 ML IV (08:06)
[2021-08-15] MEDS: Lidocaine 4 % Patch ADH..PATCH 1 PATCH TRANSDERMA (08:25)
--- NOTE | 2021-08-15 08:35 | PC.NURSE ---
Patient noted to have increase work of breathing. PA and respiratory in patients room with this RN . LS coarse/ rhonchorous, sounding wet with bloody secretions being suctioned from airway. . Decision was made to intubate patient . Intubation occurred at approx. 2230. Patient tolerated well. VSS, Propofol started for sedation. Will continue to monitor and report any changes in condition.
--- NOTE | 2021-08-15 08:57 | P.PNCC_ITS ---
Subjective Subjective Date of Service: 08/15/21 Interval History: Mr. Del Toro was transferred to the ICU yesterday afternoon bec of respiratory distress and severe acute delirium. The patient is a 66 yo male with PMHx of obesity, DM on insulin, HTN, HLD, CKD 3, ASHLY.? The patient lives with a brand director of 17 years (not ; the patient?s sister is his HCP).? The patient does drink alcohol, 8 beers/weekend. Echocardiogram June 12 showed EF 55-60%; RV poorly visualized, normal fxn; normal atria; no valvular pathology; normal diastolic dysfunction; IVC not visualized; normal RVSP. The patient was BIBA on August 09 for evaluation of a fall with head injury.? The patient stated that over the prior week he had been experiencing progressively worse pain in his upper back and shoulders.? The morning of admission, he got up to go to the bathroom and he slipped and fell.? He hit his head but denied LOC.? He had also fallen one week prior but did not hit his head, no LOC.? Also had been having chills. In the ED, the patient was noted to be in atrial fibrillation with RVR; had been SR this past May during a cardiology outpatient visit (to address cardiovascular risk factors).? In the ED, he was treated with IV diltiazem with improvement.? BP was soft 105/47, BUN/creatinine 64/2.3 (creat was 1.2 in July,), bicarb 17, potassium 5.1.? Sodium was 127.? Bilirubin 2.0.? Platelet count 77840 (chronic).? Chest x-ray and head and cervical spine CT were unrevealing. The patient was admitted to the hospital with primary dx of new onset atrial fibrillation with RVR, and mild hyponatremia.? Was started on aspirin and Eliquis. The morning of August 11, the patient was noted to be hypotensive.? He was afebrile, but had an elevated WBC, and lactic acid of 5.4.? Cultures were drawn and the patient was given a fluid bolus and put on vanco and ceftriaxone for empiric sepsis.? An ECHOCARDIOGRAM done later that morning for evaluation of the new atrial fibrillation showed normal LV systolic function, normal RV, left at rium mildly dilated, valvular Dopplers unremarkable, IVC normal in size with greater than 50% inspiratory collapse, there was a trivial loculated pericardial effusion overlying left ventricle.? No vegetation was seen. CT abdomen later that day was notable for cirrhotic-appearing liver. Small amount of ascites. Wall thickening of the colon question representing colitis versus changes related to liver disease. Bilateral lower lobe infiltrates, right greater than left and tiny bilateral pleural effusions. BCs came back positive for GPC.? The patient?s HR came down on metoprolol, and diltiazem was d/c?d.? Stool was positive for occult blood, so Eliquis and ASA were d/c?d on 08/12 bec of concern for poss GI bleed, altho Hb was stable.? On 08/12, he became hypoxemic with increased oxygen requirement.? Thought possible aspiration.? Also had a bloody bowel movement, thought possibly secondary to hemorrhoidal bleed, given his elevated INR.? He was given vitamin K for cirrhosis-related coagulopathy.? The blood cultures came back as MSSA and he was changed to nafcillin.? Altered mental status and homicidal threats were thought secondary to septic encephalopathy.? Seen by psychiatry and they agreed. On 08/13, f/u blood cultures were done, which came back both sets still positive.? Throughout the hospitalization, the patient's BUN has been rising steadily, up to 131 today, altho creatinine has been fairly steady in the range of about 2.2-2.5.? Renal has been following.? In their opinion, that has been secondary to hypoperfusion, and has now possibly progressed to ischemic ATN. Yesterday morning the patient became extremely agitated and delirious with much worsening oxygen requirement.? A non-rebreather face mask was placed.? He seemed to be complaining of new onset chest pain and worsening upper back pain.? The patient was struggling to breathe on the NRBFM, and was severely delirious.? He was transferred to the ICU. On arrival to the ICU the patient was started on Precedex, which calmed him down markedly.? A CVL was placed.? CVP was about 10 mm.? On NRBFM 15L the Sat was 95%, with RR mid 20s, with much improved resp pattern.? HR 80?s Afib, BP 127/66.? Both feet were swollen, left >> right. Lactic acid was 1.9.? Ammonia level was 109.? Central venous blood gas showed 7.23/37/-10.? CXR showed low lung volumes with possible mild interstitial edema.? My bedside ECHOCARDIOGRAM for hemod monitoring:? Normal LV size and wall thickness.? Normal contractility, EF approximately 60%.? RV size probably top- normal.? Normal valvular dopplers.? No significant TR. IVC 1.4 cm with minimal insp collapse. We started him on a Lasix drip.? We put a Kaofeed tube down to give him lactulose.? He was having a lot of bleeding from his mouth, possibly bit his tongue.? Ultimately, his respiratory status and his oxygenation deteriorated and he had to be intubated.? Following that, he went for a CT of his chest and both feet.? Chest CT showed multifocal pneumonia in both lungs.? CT of both feet was consistent with Charcot foot. ?Zosyn was added to his nafcillin.? He required 12 cm of PEEP to significantly improve his oxygenation.? His platelet count had dropped to 45,000, he was bleeding from the mouth, and his INR was still elevated. ?He was therefore transfused 1 unit of platelets. This morning, he?s sedated on propofol 25ug.? Also on Levophed 0.15ug and bicarb drips.? HR 90-140, Afib.? BP 127/55.? On AC 12/400/40%/+12, RR is 20, Ve 8.2L, PIP 23, ETCO2 30, Sat 98%.? CVBG this morning shows 7.32/35/-6. ?He remains afebrile.? No jugular venous distention with the head of the bed at 30 degrees.? Chest is clear to auscultation bilaterally, with normal expiratory phase heart rate and rhythm are irregular with normal-sounding S1 and S2, with no murmur or gallops.? Abdomen is rotund and firm, but otherwise benign.? Has 1+ central edema.? Bilat Charcot foot, left worse than right. When I showed his feet to his , she told me that he had problems with his feet for a year.? Initialy had Xrays which were normal, but eventually this past October, xrays showed that all the bones in his left foot were broken -- sounds like a textbook case of Charcot foot. LABORATORY DATA:? As below.? Notably,? WBC this morning down to 24.? Platelet count is up to 74,000. INR after another 20 mg of vitamin K (30 mg total) is down to 1.9.? BUN/creatinine up to 143/2.6, bicarb up to 20 on the bicarbonate drip, potassium 4.3, phosphorus 8.0.? NH3 up to 123 this morning.? Tbili up to 3.4.? Lactic acid 1.5.? POC 140-170. TRANSESOPHAGEAL ECHOCARDIOGRAM done by Dr. Aquino.? I watched the entire procedure.? The echo was essentially normal, both right and left sides.? Trace MR, no TR.? No vegetations. IMPRESSION: 66yo M with obesity, insulin-dep DM2, HTN, HLD, ASHLY, ETOH use.? Presented to ED with neck and back pain after falling 1 wk prior, without any LOC. Admitted for new-onset AF/RVR, hypoNa, EMIGDIO/CKD3. In hospital developed severe sepsis and found to have MSSA bacteremia and cirrhosis [likely EtOH].? Now with hypoxemic respiratory failure and acute encephalopathy 1. Acute hypoxemic respiratory failure.? Suspect mainly fluid overload, complicated by severe encephalopathy.? And CT show multifocal pneumonia, almost certainly 2? aspiration. ?All this was complicated by rotund, large firm abdomen that compromised his resp excursion.? Ultimately required intubation and high PEEP to imrove his oxygenation. 2. ID: Severe sepsis w MSSA bacteremia, and multifocal pneumonia.? ?Sputum GS is not that impressive, but shows GNRs.? Treating his pneumonia with Zosyn, which will also treat his MSSA bacteremia.? No source yet found for the latter.? GIL was negative.? Going for MRI of his spine later today.? Repeat BCs drawn this morning. 3. Metabolic encephalopathy.? 2? sepsis, uremia, hepatic encephalopathy.? On lactulose.? Likely we?ll dialyze him Wed or Wednesday. 4. New-onset AF/RVR.? Started him on esmolol.? HR now down below 90.? Hold Eliquis for now given bleeding. 5. GIB.? On PPI and Vit K.? Hb down 1 gram over last 24 hrs.? Holding Eliquis + ASA. 6. Coagulopathy and thrombocytopenia.? Giving more vitamin K for cirrhosis- related coagulopathy.? He?ll have a total 50 mg. 7. EMIGDIO/CKD3.? Making about 2L urine per day on the Lasix drip.? Still has 1+ edema.? D/W Dr. Juarez.? Will likely dialyze him tomorrow or Wednesday. 8. HypoNa.? Resolved. 9. New dx cirrhosis.? Likely EtOH.? GI consulted, immunologic workup pending. 10. Transaminitis.? Alcoholic vs. septic hepatitis.? Improving. 11. Thrombocytopenia.? Likely 2? alcoholic cirrhosis. 12. Hypotensive.? Yesterday clearly 2? Precedex.? Today likely 2? sedation.? Lactic acid normal.? Certainly not grossly septic. 13. DM2.? Changed from insulin drip to SSI.? POCs in a good range. 14. Charcot foot.? Bilateral. 15. VTE prophylaxis:? SCDs Spoke again with family in conference.? Discussed his condition and tx plan.? Got his HCP straightened out. Critical care time:? 100+ min Critical Care Time (minutes): 100 Physical Exam Vital Signs: Vital Signs: Last Vital Signs Temp 96.6 F L 08/15/21 08:00 Pulse 86 08/15/21 08:25 Resp 14 08/15/21 08:00 BP 92/47 L 08/15/21 08:25 Pulse Ox 99 08/15/21 08:00 O2 Del Method 08/15/21 08:00 O2 Flow Rate 55 08/14/21 22:00 FiO2 70 08/15/21 08:00 BMI result Body Mass Index 31.4 Objective Data Labs CBC & Chem 7: 08/15/21 05:25 08/15/21 05:25 Labs: Laboratory Results - last 24 hr 08/14/21 08/14/21 08/14/21 11:23 13:10 14:52 WBC RBC Hgb Hct MCV MCH MCHC RDW Plt Count MPV Immature Gran % (Auto) Neut % (Auto) Lymph % (Auto) [place] % (Auto) Eos % (Auto) Baso % (Auto) Lymph # (Auto) [place] # (Auto) Eos # (Auto) Baso # (Auto) Abs Immat Gran (auto) Absolute Neuts (auto) Absolute Nucleated RBC Nucleated RBC % (auto) Neutrophils % (Manual) Band Neutrophils % Lymphocytes % (Manual) Monocytes % (Manual) Promyelocytes % Abs Neuts (Manual) Lymphocytes # (Manual) Monocytes # (Manual) Promyelocytes # Toxic Granulation Toxic Vacuolation Dohle Bodies Platelet Estimate Large Platelets Giant Platelets Plt Morphology Comment RBC Morphology Polychromasia Microcytosis [place] Cells Acanthocytes (Spur) PT INR VBG pH VBG pCO2 VBG pO2 VBG HCO3 VBG O2 Saturation VBG Base Excess Sodium Potassium Chloride Carbon Dioxide Anion Gap BUN Creatinine Estim Creat Clear Calc Estimated GFR POC Glucose 247 H 262 H Random Glucose Lactic Acid Calcium Phosphorus Magnesium Total Bilirubin AST ALT Alkaline Phosphatase Ammonia 109 H B-Natriuretic Peptide Total Protein Albumin Procalcitonin Stool Occult Blood Blood Type Antibody Screen 08/14/21 08/14/21 08/14/21 14:53 14:59 15:46 WBC RBC Hgb Hct MCV MCH MCHC RDW Plt Count MPV Immature Gran % (Auto) Neut % (Auto) Lymph % (Auto) [place] % (Auto) Eos % (Auto) Baso % (Auto) Lymph # (Auto) [place] # (Auto) Eos # (Auto) Baso # (Auto) Abs Immat Gran (auto) Absolute Neuts (auto) Absolute Nucleated RBC Nucleated RBC % (auto) Neutrophils % (Manual) Band Neutrophils % Lymphocytes % (Manual) Monocytes % (Manual) Promyelocytes % Abs Neuts (Manual) Lymphocytes # (Manual) Monocytes # (Manual) Promyelocytes # Toxic Granulation Toxic Vacuolation Dohle Bodies Platelet Estimate Large Platelets Giant Platelets Plt Morphology Comment RBC Morphology Polychromasia Microcytosis [place] Cells Acanthocytes (Spur) PT INR VBG pH 7.23 L VBG pCO2 37 VBG pO2 50 VBG HCO3 15 L VBG O2 Saturation 63.0 VBG Base Excess -10.8 Sodium Potassium Chloride Carbon Dioxide Anion Gap BUN Creatinine Estim Creat Clear Calc Estimated GFR POC Glucose 193 H Random Glucose Lactic Acid 1.9 Calcium Phosphorus Magnesium Total Bilirubin AST ALT Alkaline Phosphatase Ammonia B-Natriuretic Peptide Total Protein Albumin Procalcitonin Stool Occult Blood Blood Type Antibody Screen 08/14/21 08/14/21 08/14/21 17:04 20:02 22:16 WBC 28.0 H RBC 3.53 L Hgb 10.6 L Hct 30.9 L MCV 87.5 MCH 30.0 MCHC 34.3 RDW 14.7 Plt Count 45 L MPV 12.5 H Immature Gran % (Auto) Cancelled Neut % (Auto) Cancelled Lymph % (Auto) Cancelled [place] % (Auto) Cancelled Eos % (Auto) Cancelled Baso % (Auto) Cancelled Lymph # (Auto) Cancelled [place] # (Auto) Cancelled Eos # (Auto) Cancelled Baso # (Auto) Cancelled Abs Immat Gran (auto) Cancelled Absolute Neuts (auto) Cancelled Absolute Nucleated RBC 0.220 H Nucleated RBC % (auto) 0.8 H Neutrophils % (Manual) 91 H Band Neutrophils % 3 Lymphocytes % (Manual) 1 L Monocytes % (Manual) 4 Promyelocytes % 1 Abs Neuts (Manual) 26.3 H Lymphocytes # (Manual) 0.3 L Monocytes # (Manual) 1.1 Promyelocytes # 0.3 Toxic Granulation PRESENT Toxic Vacuolation PRESENT Dohle Bodies PRESENT Platelet Estimate DECREASED Large Platelets PRESENT Giant Platelets PRESENT Plt Morphology Comment AGRANULAR RBC Morphology NOTED Polychromasia 1+ (0-2) Microcytosis 1+ (5-14) [place] Cells 2+ (3-5) Acanthocytes (Spur) 1+ (0-2) PT INR VBG pH VBG pCO2 VBG pO2 VBG HCO3 VBG O2 Saturation VBG Base Excess Sodium Potassium Chloride Carbon Dioxide Anion Gap BUN Creatinine Estim Creat Clear Calc Estimated GFR POC Glucose 161 H 118 H Random Glucose Lactic Acid Calcium Phosphorus Magnesium Total Bilirubin AST ALT Alkaline Phosphatase Ammonia B-Natriuretic Peptide Total Protein Albumin Procalcitonin Stool Occult Blood Blood Type Antibody Screen 08/14/21 08/14/21 08/14/21 22:16 22:16 22:16 WBC RBC Hgb Hct MCV MCH MCHC RDW Plt Count MPV Immature Gran % (Auto) Neut % (Auto) Lymph % (Auto) [place] % (Auto) Eos % (Auto) Baso % (Auto) Lymph # (Auto) [place] # (Auto) Eos # (Auto) Baso # (Auto) Abs Immat Gran (auto) Absolute Neuts (auto) Absolute Nucleated RBC Nucleated RBC % (auto) Neutrophils % (Manual) Band Neutrophils % Lymphocytes % (Manual) Monocytes % (Manual) Promyelocytes % Abs Neuts (Manual) Lymphocytes # (Manual) Monocytes # (Manual) Promyelocytes # Toxic Granulation Toxic Vacuolation Dohle Bodies Platelet Estimate Large Platelets Giant Platelets Plt Morphology Comment RBC Morphology Polychromasia Microcytosis [place] Cells Acanthocytes (Spur) PT INR VBG pH VBG pCO2 VBG pO2 VBG HCO3 VBG O2 Saturation VBG Base Excess Sodium 137 Potassium 4.3 Chloride 107 Carbon Dioxide 19 L Anion Gap 15 BUN 142 H Creatinine 2.59 H Estim Creat Clear Calc 30.3 Estimated GFR 25 POC Glucose Random Glucose 98 D Lactic Acid Calcium 7.2 L Phosphorus Magnesium Total Bilirubin 2.9 H AST 84 H ALT 37 Alkaline Phosphatase 169 H Ammonia B-Natriuretic Peptide 809 H Total Protein 7.3 Albumin 2.7 L Procalcitonin 2.72 Stool Occult Blood Blood Type Antibody Screen 08/14/21 08/14/21 08/14/21 22:24 23:12 23:33 WBC RBC Hgb Hct MCV MCH MCHC RDW Plt Count MPV Immature Gran % (Auto) Neut % (Auto) Lymph % (Auto) [place] % (Auto) Eos % (Auto) Baso % (Auto) Lymph # (Auto) [place] # (Auto) Eos # (Auto) Baso # (Auto) Abs Immat Gran (auto) Absolute Neuts (auto) Absolute Nucleated RBC Nucleated RBC % (auto) Neutrophils % (Manual) Band Neutrophils % Lymphocytes % (Manual) Monocytes % (Manual) Promyelocytes % Abs Neuts (Manual) Lymphocytes # (Manual) Monocytes # (Manual) Promyelocytes # Toxic Granulation Toxic Vacuolation Dohle Bodies Platelet Estimate Large Platelets Giant Platelets Plt Morphology Comment RBC Morphology Polychromasia Microcytosis [place] Cells Acanthocytes (Spur) PT INR VBG pH 7.26 L VBG pCO2 39 VBG pO2 63 VBG HCO3 18 L VBG O2 Saturation 82.0 VBG Base Excess -8.1 Sodium Potassium Chloride Carbon Dioxide Anion Gap BUN Creatinine Estim Creat Clear Calc Estimated GFR POC Glucose 99 Random Glucose Lactic Acid Calcium Phosphorus Magnesium Total Bilirubin AST ALT Alkaline Phosphatase Ammonia B-Natriuretic Peptide Total Protein Albumin Procalcitonin Stool Occult Blood Blood Type A Positive Antibody Screen NEGATIVE 08/15/21 08/15/21 08/15/21 00:14 05:25 05:25 WBC 24.3 H RBC 3.17 L Hgb 9.4 L Hct 27.8 L MCV 87.7 MCH 29.7 MCHC 33.8 RDW 14.6 Plt Count 74 L D MPV 11.8 Immature Gran % (Auto) Neut % (Auto) Lymph % (Auto) [place] % (Auto) Eos % (Auto) Baso % (Auto) Lymph # (Auto) [place] # (Auto) Eos # (Auto) Baso # (Auto) Abs Immat Gran (auto) Absolute Neuts (auto) Absolute Nucleated RBC 0.190 H Nucleated RBC % (auto) 0.8 H Neutrophils % (Manual) Band Neutrophils % Lymphocytes % (Manual) Monocytes % (Manual) Promyelocytes % Abs Neuts (Manual) Lymphocytes # (Manual) Monocytes # (Manual) Promyelocytes # Toxic Granulation Toxic Vacuolation Dohle Bodies Platelet Estimate Large Platelets Giant Platelets Plt Morphology Comment RBC Morphology Polychromasia Microcytosis [place] Cells Acanthocytes (Spur) PT INR VBG pH VBG pCO2 VBG pO2 VBG HCO3 VBG O2 Saturation VBG Base Excess Sodium 139 Potassium 4.3 Chloride 106 Carbon Dioxide 20 L Anion Gap 17 BUN 143 H Creatinine 2.62 H Estim Creat Clear Calc 29.9 Estimated GFR 24 POC Glucose 112 Random Glucose 162 H D Lactic Acid Calcium 7.1 L Phosphorus 8.0 H Magnesium 2.8 H Total Bilirubin 3.4 H AST 73 H ALT 30 Alkaline Phosphatase 148 H Ammonia B-Natriuretic Peptide Total Protein 6.5 Albumin 2.3 L Procalcitonin Stool Occult Blood Blood Type Antibody Screen 08/15/21 08/15/21 08/15/21 05:25 05:25 05:25 WBC RBC Hgb Hct MCV MCH MCHC RDW Plt Count MPV Immature Gran % (Auto) Neut % (Auto) Lymph % (Auto) [place] % (Auto) Eos % (Auto) Baso % (Auto) Lymph # (Auto) [place] # (Auto) Eos # (Auto) Baso # (Auto) Abs Immat Gran (auto) Absolute Neuts (auto) Absolute Nucleated RBC Nucleated RBC % (auto) Neutrophils % (Manual) Band Neutrophils % Lymphocytes % (Manual) Monocytes % (Manual) Promyelocytes % Abs Neuts (Manual) Lymphocytes # (Manual) Monocytes # (Manual) Promyelocytes # Toxic Granulation Toxic Vacuolation Dohle Bodies Platelet Estimate Large Platelets Giant Platelets Plt Morphology Comment RBC Morphology Polychromasia Microcytosis [place] Cells Acanthocytes (Spur) PT INR VBG pH VBG pCO2 VBG pO2 VBG HCO3 VBG O2 Saturation VBG Base Excess Sodium Potassium Chloride Carbon Dioxide Anion Gap BUN Creatinine Estim Creat Clear Calc Estimated GFR POC Glucose Random Glucose Lactic Acid 1.5 Calcium Phosphorus Magnesium Total Bilirubin AST ALT Alkaline Phosphatase Ammonia 123 H B-Natriuretic Peptide 675 H Total Protein Albumin Procalcitonin Stool Occult Blood Blood Type Antibody Screen 08/15/21 08/15/21 08/15/21 05:25 05:25 05:28 WBC RBC Hgb Hct MCV MCH MCHC RDW Plt Count MPV Immature Gran % (Auto) Neut % (Auto) Lymph % (Auto) [place] % (Auto) Eos % (Auto) Baso % (Auto) Lymph # (Auto) [place] # (Auto) Eos # (Auto) Baso # (Auto) Abs Immat Gran (auto) Absolute Neuts (auto) Absolute Nucleated RBC Nucleated RBC % (auto) Neutrophils % (Manual) Band Neutrophils % Lymphocytes % (Manual) Monocytes % (Manual) Promyelocytes % Abs Neuts (Manual) Lymphocytes # (Manual) Monocytes # (Manual) Promyelocytes # Toxic Granulation Toxic Vacuolation Dohle Bodies Platelet Estimate Large Platelets Giant Platelets Plt Morphology Comment RBC Morphology Polychromasia Microcytosis [place] Cells Acanthocytes (Spur) PT 21.4 H INR 1.9 H VBG pH 7.32 VBG pCO2 35 VBG pO2 53 VBG HCO3 18 L VBG O2 Saturation 76.0 VBG Base Excess -6.5 Sodium Potassium Chloride Carbon Dioxide Anion Gap BUN Creatinine Estim Creat Clear Calc Estimated GFR POC Glucose Random Glucose Lactic Acid Calcium Phosphorus Magnesium Total Bilirubin AST ALT Alkaline Phosphatase Ammonia B-Natriuretic Peptide Total Protein Albumin Procalcitonin 2.96 Stool Occult Blood Blood Type Antibody Screen 08/15/21 08/15/21 05:40 06:14 WBC RBC Hgb Hct MCV MCH MCHC RDW Plt Count MPV Immature Gran % (Auto) Neut % (Auto) Lymph % (Auto) [place] % (Auto) Eos % (Auto) Baso % (Auto) Lymph # (Auto) [place] # (Auto) Eos # (Auto) Baso # (Auto) Abs Immat Gran (auto) Absolute Neuts (auto) Absolute Nucleated RBC Nucleated RBC % (auto) Neutrophils % (Manual) Band Neutrophils % Lymphocytes % (Manual) Monocytes % (Manual) Promyelocytes % Abs Neuts (Manual) Lymphocytes # (Manual) Monocytes # (Manual) Promyelocytes # Toxic Granulation Toxic Vacuolation Dohle Bodies Platelet Estimate Large Platelets Giant Platelets Plt Morphology Comment RBC Morphology Polychromasia Microcytosis [place] Cells Acanthocytes (Spur) PT INR VBG pH VBG pCO2 VBG pO2 VBG HCO3 VBG O2 Saturation VBG Base Excess Sodium Potassium Chloride Carbon Dioxide Anion Gap BUN Creatinine Estim Creat Clear Calc Estimated GFR POC Glucose 144 H Random Glucose Lactic Acid Calcium Phosphorus Magnesium Total Bilirubin AST ALT Alkaline Phosphatase Ammonia B-Natriuretic Peptide Total Protein Albumin Procalcitonin Stool Occult Blood POSITIVE Blood Type Antibody Screen Microbiology Microbiology Results: Microbiology 08/13/21 08:09 Blood - Venous Blood Culture - Final Staphylococcus aureus 08/13/21 08:09 Blood - Venous Blood Culture - Final Staphylococcus aureus 08/11/21 01:50 Blood - Venous Blood Culture - Final Staphylococcus aureus 08/11/21 01:50 Blood - Venous Blood Culture - Final Staphylococcus aureus Quality Stroke Does the patient have a stroke diagnosis?: No VTE Prior VTE?: No VTE Risk Level:: Medical - moderate - high VTE Device Contraindication: Treatment Not Indicated VTE Drug Contraindication: N/A - Med Ordered Critical Care Time Critical Care Time (minutes): 90
--- NOTE | 2021-08-15 11:03 | MHC.CLN ---
PT IS INTUBATED AND SEDATED RECOMMEND JEVITY 1.0 AT MAX GOAL RATE 60ML/HR WITH 240ML FREE WATER FLUSHES Q 8 HRS TO PROVIDE 1526KCALS (1897KCALS WITH SEDATION; 24KCALS/KG), 63.7G PROTEIN (.8G/KG), 1922ML TOTAL WATER FROM FORMULA AND FLUSHES (24ML/KG) MONITOR TOLERANCE, RESIDUALS AND LYTES SEE ALSO FULL CLINICLA NUTRITION ASSESSMENT
[2021-08-15] MEDS: propofoL 1,000 MG/100 ML VIAL 14.06 MG IVCONT ×3 (11:27→21:45)
[2021-08-15] MEDS: Thiamine HCL 100 MG TABLET PO (12:09)
[2021-08-15] MEDS: Furosemide 500 MG in Container,Empty 0 ML IVCONT (12:17)
[2021-08-15 12:45] LABS: Glucose, Whole Blood 171 mg/dL (60-115)
[2021-08-15 13:06] LABS: Vitamin B1 <6 nmol/L (8-30)
[2021-08-15] MEDS: Insulin Lispro 100 UNIT/ML 3 ML VIAL SUBCUT (13:29)
--- NOTE | 2021-08-15 13:37 | MHC.SLORD ---
Speech Language Pathology Order Status: Patient currently intubated. Not appropriate for PO trials at this time.
[2021-08-15 13:47] LABS: Anti Nuclear Antibody Screen NEGATIVE (NEGATIVE)
--- NOTE | 2021-08-15 13:48 | PM.PNNEP ---
Subjective Subjective Date of Service: 08/15/21 Principal diagnosis: AF Interval history: Events noted. All recent data reviewed. D/W Dr Lopez Physical Exam Vital Signs: Vital Signs: Last Vital Signs Temp 96.6 F L 08/15/21 12:00 Pulse 93 08/15/21 13:00 Resp 12 08/15/21 13:00 BP 128/49 L 08/15/21 13:00 Pulse Ox 99 08/15/21 13:00 O2 Del Method 08/15/21 13:00 O2 Flow Rate 55 08/14/21 22:00 FiO2 40 08/15/21 13:00 BMI result Body Mass Index 31.4 Const: General: no acute distress Neck: Neck: Yes supple Resp: Auscultation: diminished lung sounds Cardio: Rate: regular rate GI: Palpation (GI): Soft to palpation Skin: General skin exam: no rashes or lesions noted Objective Data Labs CBC & Chem 7: 08/15/21 05:25 08/15/21 05:25 Labs: Laboratory Results - last 24 hr 08/11/21 08/13/21 08/14/21 09:59 08:09 14:52 WBC RBC Hgb Hct MCV MCH MCHC RDW Plt Count MPV Immature Gran % (Auto) Neut % (Auto) Lymph % (Auto) [place] % (Auto) Eos % (Auto) Baso % (Auto) Lymph # (Auto) [place] # (Auto) Eos # (Auto) Baso # (Auto) Abs Immat Gran (auto) Absolute Neuts (auto) Absolute Nucleated RBC Nucleated RBC % (auto) Neutrophils % (Manual) Band Neutrophils % Lymphocytes % (Manual) Monocytes % (Manual) Promyelocytes % Abs Neuts (Manual) Lymphocytes # (Manual) Monocytes # (Manual) Promyelocytes # Toxic Granulation Toxic Vacuolation Dohle Bodies Platelet Estimate Large Platelets Giant Platelets Plt Morphology Comment RBC Morphology Polychromasia Microcytosis [place] Cells Acanthocytes (Spur) PT INR VBG pH VBG pCO2 VBG pO2 VBG HCO3 VBG O2 Saturation VBG Base Excess Sodium Potassium Chloride Carbon Dioxide Anion Gap BUN Creatinine Estim Creat Clear Calc Estimated GFR POC Glucose Random Glucose Lactic Acid Calcium Phosphorus Magnesium Total Bilirubin AST ALT Alkaline Phosphatase Ammonia 109 H B-Natriuretic Peptide Total Protein Albumin Vitamin B1 <6 L Procalcitonin Stool Occult Blood ZAYDA Screen NEGATIVE Blood Type Antibody Screen 06/08/14/21 08/14/21 14:53 14:59 15:46 WBC RBC Hgb Hct MCV MCH MCHC RDW Plt Count MPV Immature Gran % (Auto) Neut % (Auto) Lymph % (Auto) [place] % (Auto) Eos % (Auto) Baso % (Auto) Lymph # (Auto) [place] # (Auto) Eos # (Auto) Baso # (Auto) Abs Immat Gran (auto) Absolute Neuts (auto) Absolute Nucleated RBC Nucleated RBC % (auto) Neutrophils % (Manual) Band Neutrophils % Lymphocytes % (Manual) Monocytes % (Manual) Promyelocytes % Abs Neuts (Manual) Lymphocytes # (Manual) Monocytes # (Manual) Promyelocytes # Toxic Granulation Toxic Vacuolation Dohle Bodies Platelet Estimate Large Platelets Giant Platelets Plt Morphology Comment RBC Morphology Polychromasia Microcytosis [place] Cells Acanthocytes (Spur) PT INR VBG pH 7.23 L VBG pCO2 37 VBG pO2 50 VBG HCO3 15 L VBG O2 Saturation 63.0 VBG Base Excess -10.8 Sodium Potassium Chloride Carbon Dioxide Anion Gap BUN Creatinine Estim Creat Clear Calc Estimated GFR POC Glucose 193 H Random Glucose Lactic Acid 1.9 Calcium Phosphorus Magnesium Total Bilirubin AST ALT Alkaline Phosphatase Ammonia B-Natriuretic Peptide Total Protein Albumin Vitamin B1 Procalcitonin Stool Occult Blood ZAYDA Screen Blood Type Antibody Screen 08/14/21 08/14/21 08/14/21 17:04 20:02 22:16 WBC 28.0 H RBC 3.53 L Hgb 10.6 L Hct 30.9 L MCV 87.5 MCH 30.0 MCHC 34.3 RDW 14.7 Plt Count 45 L MPV 12.5 H Immature Gran % (Auto) Cancelled Neut % (Auto) Cancelled Lymph % (Auto) Cancelled [place] % (Auto) Cancelled Eos % (Auto) Cancelled Baso % (Auto) Cancelled Lymph # (Auto) Cancelled [place] # (Auto) Cancelled Eos # (Auto) Cancelled Baso # (Auto) Cancelled Abs Immat Gran (auto) Cancelled Absolute Neuts (auto) Cancelled Absolute Nucleated RBC 0.220 H Nucleated RBC % (auto) 0.8 H Neutrophils % (Manual) 91 H Band Neutrophils % 3 Lymphocytes % (Manual) 1 L Monocytes % (Manual) 4 Promyelocytes % 1 Abs Neuts (Manual) 26.3 H Lymphocytes # (Manual) 0.3 L Monocytes # (Manual) 1.1 Promyelocytes # 0.3 Toxic Granulation PRESENT Toxic Vacuolation PRESENT Dohle Bodies PRESENT Platelet Estimate DECREASED Large Platelets PRESENT Giant Platelets PRESENT Plt Morphology Comment AGRANULAR RBC Morphology NOTED Polychromasia 1+ (0-2) Microcytosis 1+ (5-14) [place] Cells 2+ (3-5) Acanthocytes (Spur) 1+ (0-2) PT INR VBG pH VBG pCO2 VBG pO2 VBG HCO3 VBG O2 Saturation VBG Base Excess Sodium Potassium Chloride Carbon Dioxide Anion Gap BUN Creatinine Estim Creat Clear Calc Estimated GFR POC Glucose 161 H 118 H Random Glucose Lactic Acid Calcium Phosphorus Magnesium Total Bilirubin AST ALT Alkaline Phosphatase Ammonia B-Natriuretic Peptide Total Protein Albumin Vitamin B1 Procalcitonin Stool Occult Blood ZAYDA Screen Blood Type Antibody Screen 08/14/21 08/14/21 08/14/21 22:16 22:16 22:16 WBC RBC Hgb Hct MCV MCH MCHC RDW Plt Count MPV Immature Gran % (Auto) Neut % (Auto) Lymph % (Auto) [place] % (Auto) Eos % (Auto) Baso % (Auto) Lymph # (Auto) [place] # (Auto) Eos # (Auto) Baso # (Auto) Abs Immat Gran (auto) Absolute Neuts (auto) Absolute Nucleated RBC Nucleated RBC % (auto) Neutrophils % (Manual) Band Neutrophils % Lymphocytes % (Manual) Monocytes % (Manual) Promyelocytes % Abs Neuts (Manual) Lymphocytes # (Manual) Monocytes # (Manual) Promyelocytes # Toxic Granulation Toxic Vacuolation Dohle Bodies Platelet Estimate Large Platelets Giant Platelets Plt Morphology Comment RBC Morphology Polychromasia Microcytosis [place] Cells Acanthocytes (Spur) PT INR VBG pH VBG pCO2 VBG pO2 VBG HCO3 VBG O2 Saturation VBG Base Excess Sodium 137 Potassium 4.3 Chloride 107 Carbon Dioxide 19 L Anion Gap 15 BUN 142 H Creatinine 2.59 H Estim Creat Clear Calc 30.3 Estimated GFR 25 POC Glucose Random Glucose 98 D Lactic Acid Calcium 7.2 L Phosphorus Magnesium Total Bilirubin 2.9 H AST 84 H ALT 37 Alkaline Phosphatase 169 H Ammonia B-Natriuretic Peptide 809 H Total Protein 7.3 Albumin 2.7 L Vitamin B1 Procalcitonin 2.72 Stool Occult Blood ZAYDA Screen Blood Type Antibody Screen 08/14/21 08/14/21 08/14/21 22:24 23:12 23:33 WBC RBC Hgb Hct MCV MCH MCHC RDW Plt Count MPV Immature Gran % (Auto) Neut % (Auto) Lymph % (Auto) [place] % (Auto) Eos % (Auto) Baso % (Auto) Lymph # (Auto) [place] # (Auto) Eos # (Auto) Baso # (Auto) Abs Immat Gran (auto) Absolute Neuts (auto) Absolute Nucleated RBC Nucleated RBC % (auto) Neutrophils % (Manual) Band Neutrophils % Lymphocytes % (Manual) Monocytes % (Manual) Promyelocytes % Abs Neuts (Manual) Lymphocytes # (Manual) Monocytes # (Manual) Promyelocytes # Toxic Granulation Toxic Vacuolation Dohle Bodies Platelet Estimate Large Platelets Giant Platelets Plt Morphology Comment RBC Morphology Polychromasia Microcytosis [place] Cells Acanthocytes (Spur) PT INR VBG pH 7.26 L VBG pCO2 39 VBG pO2 63 VBG HCO3 18 L VBG O2 Saturation 82.0 VBG Base Excess -8.1 Sodium Potassium Chloride Carbon Dioxide Anion Gap BUN Creatinine Estim Creat Clear Calc Estimated GFR POC Glucose 99 Random Glucose Lactic Acid Calcium Phosphorus Magnesium Total Bilirubin AST ALT Alkaline Phosphatase Ammonia B-Natriuretic Peptide Total Protein Albumin Vitamin B1 Procalcitonin Stool Occult Blood ZAYDA Screen Blood Type A Positive Antibody Screen NEGATIVE 08/15/21 08/15/21 08/15/21 00:14 05:25 05:25 WBC 24.3 H RBC 3.17 L Hgb 9.4 L Hct 27.8 L MCV 87.7 MCH 29.7 MCHC 33.8 RDW 14.6 Plt Count 74 L D MPV 11.8 Immature Gran % (Auto) Neut % (Auto) Lymph % (Auto) [place] % (Auto) Eos % (Auto) Baso % (Auto) Lymph # (Auto) [place] # (Auto) Eos # (Auto) Baso # (Auto) Abs Immat Gran (auto) Absolute Neuts (auto) Absolute Nucleated RBC 0.190 H Nucleated RBC % (auto) 0.8 H Neutrophils % (Manual) Band Neutrophils % Lymphocytes % (Manual) Monocytes % (Manual) Promyelocytes % Abs Neuts (Manual) Lymphocytes # (Manual) Monocytes # (Manual) Promyelocytes # Toxic Granulation Toxic Vacuolation Dohle Bodies Platelet Estimate Large Platelets Giant Platelets Plt Morphology Comment RBC Morphology Polychromasia Microcytosis [place] Cells Acanthocytes (Spur) PT INR VBG pH VBG pCO2 VBG pO2 VBG HCO3 VBG O2 Saturation VBG Base Excess Sodium 139 Potassium 4.3 Chloride 106 Carbon Dioxide 20 L Anion Gap 17 BUN 143 H Creatinine 2.62 H Estim Creat Clear Calc 29.9 Estimated GFR 24 POC Glucose 112 Random Glucose 162 H D Lactic Acid Calcium 7.1 L Phosphorus 8.0 H Magnesium 2.8 H Total Bilirubin 3.4 H AST 73 H ALT 30 Alkaline Phosphatase 148 H Ammonia B-Natriuretic Peptide Total Protein 6.5 Albumin 2.3 L Vitamin B1 Procalcitonin Stool Occult Blood ZAYDA Screen Blood Type Antibody Screen 08/15/21 08/15/21 08/15/21 05:25 05:25 05:25 WBC RBC Hgb Hct MCV MCH MCHC RDW Plt Count MPV Immature Gran % (Auto) Neut % (Auto) Lymph % (Auto) [place] % (Auto) Eos % (Auto) Baso % (Auto) Lymph # (Auto) [place] # (Auto) Eos # (Auto) Baso # (Auto) Abs Immat Gran (auto) Absolute Neuts (auto) Absolute Nucleated RBC Nucleated RBC % (auto) Neutrophils % (Manual) Band Neutrophils % Lymphocytes % (Manual) Monocytes % (Manual) Promyelocytes % Abs Neuts (Manual) Lymphocytes # (Manual) Monocytes # (Manual) Promyelocytes # Toxic Granulation Toxic Vacuolation Dohle Bodies Platelet Estimate Large Platelets Giant Platelets Plt Morphology Comment RBC Morphology Polychromasia Microcytosis [place] Cells Acanthocytes (Spur) PT INR VBG pH VBG pCO2 VBG pO2 VBG HCO3 VBG O2 Saturation VBG Base Excess Sodium Potassium Chloride Carbon Dioxide Anion Gap BUN Creatinine Estim Creat Clear Calc Estimated GFR POC Glucose Random Glucose Lactic Acid 1.5 Calcium Phosphorus Magnesium Total Bilirubin AST ALT Alkaline Phosphatase Ammonia 123 H B-Natriuretic Peptide 675 H Total Protein Albumin Vitamin B1 Procalcitonin Stool Occult Blood ZAYDA Screen Blood Type Antibody Screen 08/15/21 08/15/21 08/15/21 05:25 05:25 05:28 WBC RBC Hgb Hct MCV MCH MCHC RDW Plt Count MPV Immature Gran % (Auto) Neut % (Auto) Lymph % (Auto) [place] % (Auto) Eos % (Auto) Baso % (Auto) Lymph # (Auto) [place] # (Auto) Eos # (Auto) Baso # (Auto) Abs Immat Gran (auto) Absolute Neuts (auto) Absolute Nucleated RBC Nucleated RBC % (auto) Neutrophils % (Manual) Band Neutrophils % Lymphocytes % (Manual) Monocytes % (Manual) Promyelocytes % Abs Neuts (Manual) Lymphocytes # (Manual) Monocytes # (Manual) Promyelocytes # Toxic Granulation Toxic Vacuolation Dohle Bodies Platelet Estimate Large Platelets Giant Platelets Plt Morphology Comment RBC Morphology Polychromasia Microcytosis [place] Cells Acanthocytes (Spur) PT 21.4 H INR 1.9 H VBG pH 7.32 VBG pCO2 35 VBG pO2 53 VBG HCO3 18 L VBG O2 Saturation 76.0 VBG Base Excess -6.5 Sodium Potassium Chloride Carbon Dioxide Anion Gap BUN Creatinine Estim Creat Clear Calc Estimated GFR POC Glucose Random Glucose Lactic Acid Calcium Phosphorus Magnesium Total Bilirubin AST ALT Alkaline Phosphatase Ammonia B-Natriuretic Peptide Total Protein Albumin Vitamin B1 Procalcitonin 2.96 Stool Occult Blood ZAYDA Screen Blood Type Antibody Screen 08/15/21 08/15/21 08/15/21 05:40 06:14 12:42 WBC RBC Hgb Hct MCV MCH MCHC RDW Plt Count MPV Immature Gran % (Auto) Neut % (Auto) Lymph % (Auto) [place] % (Auto) Eos % (Auto) Baso % (Auto) Lymph # (Auto) [place] # (Auto) Eos # (Auto) Baso # (Auto) Abs Immat Gran (auto) Absolute Neuts (auto) Absolute Nucleated RBC Nucleated RBC % (auto) Neutrophils % (Manual) Band Neutrophils % Lymphocytes % (Manual) Monocytes % (Manual) Promyelocytes % Abs Neuts (Manual) Lymphocytes # (Manual) Monocytes # (Manual) Promyelocytes # Toxic Granulation Toxic Vacuolation Dohle Bodies Platelet Estimate Large Platelets Giant Platelets Plt Morphology Comment RBC Morphology Polychromasia Microcytosis [place] Cells Acanthocytes (Spur) PT INR VBG pH VBG pCO2 VBG pO2 VBG HCO3 VBG O2 Saturation VBG Base Excess Sodium Potassium Chloride Carbon Dioxide Anion Gap BUN Creatinine Estim Creat Clear Calc Estimated GFR POC Glucose 144 H 171 H Random Glucose Lactic Acid Calcium Phosphorus Magnesium Total Bilirubin AST ALT Alkaline Phosphatase Ammonia B-Natriuretic Peptide Total Protein Albumin Vitamin B1 Procalcitonin Stool Occult Blood POSITIVE ZAYDA Screen Blood Type Antibody Screen Microbiology Microbiology Results: Microbiology 08/14/21 23:17 Sputum - Induced Gram Stain - Final 08/13/21 08:09 Blood - Venous Blood Culture - Final Staphylococcus aureus 08/13/21 08:09 Blood - Venous Blood Culture - Final Staphylococcus aureus 08/11/21 01:50 Blood - Venous Blood Culture - Final Staphylococcus aureus 08/11/21 01:50 Blood - Venous Blood Culture - Final Staphylococcus aureus Procedures Date of Service Date of Service: 08/15/21 Assessment & Plan Assessment and plan (1) Acute kidney injury: Status: Acute Assessment and Plan: Acute kidney injury due to tubular injury superimposed on chronic kidney disease Had adequate diuresis with supportive care. No indication for renal replacement today Shall re evaluate again tomorrow AM to decide whether he needs HD; Shall F/U closely. Time Spent With Patient Time: Total time spent is greater than 50% in coordination of care (as documented) at patient's floor/unit and/or counseling patient: Progress Note: Quality Stroke Does the patient have a stroke diagnosis?: No
--- NOTE | 2021-08-15 14:00 | CA_ITS ---
Transesophageal Echocardiogram Patient (Last, First, Middle): Levi Del Toro M Gender: Male Date of : 1955 Age: 66 Procedure Date: 08/15/2021 Procedure Type: Transesophageal Echocardiogram Location: ICU Height: 172.72 cm Weight: 206. 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 Conclusion: ??? 1. No intracardiac thrombi, masses or vegetations 2. Normal LV systolic function 3. Mildly dilated left atrium with smoke formation without any clots 4. No intracardiac shunting 5. Normal pericardium Findings Procedure Information Consent was obtained prior to the procedure. Pre GIL oral cavity was checked and revealed mild overcrowding. The adult 3D probe was passed with no difficulty. Left Ventricle Normal left ventricular size, thickness, and systolic function. The visually estimated ejection fraction is between 60-65%. Diastolic function is indeterminate on the basis of available data. Right Ventricle Normal right ventricular cavity size. There is normal right ventricular systolic function. Atria The left atrium is mildly dilated. There is no evidence of interatrial shunt. Left atrium was identified in multiple views. There are no clots, masses and left atrium. The smoke formation seen within left atrium. The left atrial appendage was also identified in multiple view with then smoke formation seen. There were no clots seen within the left atrial appendage. The left upper, right upper and right lower pulmonary vein drain normally into the left atrium. The right atrium is normal in size. The right atrium is free of any masses or thrombi. The IVC and SVC drain normally into the right atrium. Central venous catheter is seen at the junction of the SVC and right atrium, slightly protruding into the right atrium. The right atrial appendage is identified without any significant smoke formation. Aortic Valve Normal aortic valve structure and function. There is no aortic valve stenosis. There is no evidence of a mass on the aortic valve. There is no aortic valve regurgitation. 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 the inter valvular the fibrosa Selvin and without any evidence of radiolucency suggestive of abscess. Mitral Valve Normal mitral valve structure and function. There is trace mitral valve regurgitation. There is no mitral valve stenosis. There is no mass noted on the mitral valve. Pulmonic Valve The pulmonic valve is normal. There is no mass noted on the pulmonic valve. Tricuspid Valve Normal tricuspid valve structure. There is trace tricuspid valve regurgitation. There is no evidence of a mass on the tricuspid valve. Great Vessels All visible segments of the aorta are normal in size. The visualized portions of the pulmonary artery and branches are normal. Venous The inferior vena cava is normal in size and collapses greater than 50% with inspiration. Pericardium/Pleural There is no evidence of pericardial effusion. Prior Study Comparison No prior study available for comparison. Updated by Mikey Aquino on 03:55 PM with Status of Final Mikey Aquino MD electronically signed on 08/15/2021 3:55:48 PM with status of Final
[2021-08-15] MEDS: Cisatracurium Besylate 20 MG/10 ML VIAL 12 MG IVPUSH (14:12)
--- NOTE | 2021-08-15 14:27 | MHC.CM.PN ---
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 Addendum entered by Ashley Briceño 08/15/21 14:40: Received fax from [facility]: not the correct pt's HCP. Will call and clarify Original Note: Pt transferred to ICU with respiratory distress and subsequent intubation. No HCP on file: call placed to [facility] provider office where a HCP was located and is being faxed to [facility]. Prior to admission, pt resided with significant other and was independent with all care needs. Pt is now requiring hemodialysis - duration undetermined. It is likely that pt will require STR following his [facility] stay and broad referrals have been made. CM to follow for finalization of d/c plans.
[2021-08-15] MEDS: fentaNYL citrate/PF 100 MCG/2 ML VIAL IVPUSH (14:30)
[2021-08-15] MEDS: Esmolol HCl/NaCl Iso 2,500 MG/250 ML IV.SOLN 28.11 MG IVCONT (14:47)
[2021-08-15 16:42] LABS: Glucose, Whole Blood 151 mg/dL (60-115)
[2021-08-15 19:00] LABS: Glucose, Whole Blood 153 mg/dL (60-115)
[2021-08-15 23:41] LABS: Glucose, Whole Blood 117 mg/dL (60-115)
[2021-08-15] MEDS: Atorvastatin Calcium 40 MG TABLET PO (23:48)
[2021-08-16] VITALS (32 sets, daily range): BP systolic 103–150; BP diastolic 45–65; PULSE 78–195; RESP 14–25; TEMP 35.1–36.8; O2SAT 91–100; BMI 32.1
[2021-08-16] MEDS: propofoL 1,000 MG/100 ML VIAL 14.06 MG IVCONT ×2 (02:19→22:49)
[2021-08-16] MEDS: Esmolol HCl/NaCl Iso 2,500 MG/250 ML IV.SOLN 16.87 MG IVCONT (02:21)
[2021-08-16] MEDS: Sodium Bicarbonate 650 MG TABLET G-TUBE ×4 (02:29→22:10)
[2021-08-16] MEDS: Lactulose 20 GM/30 ML SOLUTION 40 GM G-TUBE ×3 (04:56→17:00)
[2021-08-16] MEDS: Piperacillin Sodium/Tazobactam 3.375 GM in 0.9 % Sodium Chloride 50 ML IV ×4 (04:56→22:25)
[2021-08-16] MEDS: Pantoprazole Sodium 40 MG/10 ML VIAL IVPUSH ×2 (05:32→16:59)
[2021-08-16 05:34] LABS: VBG HCO3 21 mmol/L (22-26); VBG pCO2 33 mmHg; VBG pH 7.41 (7.32-7.43); VBG pO2 45 mmHg
[2021-08-16 05:36] LABS: Venous Blood Gas Refer to POC result
[2021-08-16 05:48] LABS: Hematocrit 29.3 % (42.0-52.0); Hemoglobin 10.2 g/dl (14.0-18.0); Mean Corpuscular HGB Conc 34.8 g/dl (31.0-36.0); Mean Corpuscular Hemoglobin 30.1 pg (27.0-33.0); Mean Corpuscular Volume 86.4 fL (80.0-98.0); NRBC Pct Auto 0.8 /100WBC (0.0-0.2); Red Blood Count 3.39 X10*6/uL (4.60-5.80); Red Cell Distribution Width 14.7 % (11.0-16.0); White Blood Count 17.8 X10*3/uL (4.8-10.8)
[2021-08-16 05:53] LABS: Lactic Acid 1.8 mmol/L (0.5-2.0)
[2021-08-16 06:01] LABS: PLT ABN DIST 1
[2021-08-16 06:05] LABS: Glucose, Whole Blood 111 mg/dL (60-115)
[2021-08-16 06:07] LABS: INTERNATIONAL NORM RATIO 1.7 (0.9-1.1); Prothrombin Time 19.6 SEC (9.9-13.0)
[2021-08-16 06:10] LABS: Platelet Count 34 X10*3/uL (160-400)
[2021-08-16 06:12] LABS: Alanine Aminotransferase 26 U/L (0-40); Albumin Level 2.2 g/dL (3.5-5.0); Alkaline Phosphatase 144 U/L (39-117); Anion Gap 16 (12-20); Aspartate Amino Transferase 78 U/L (5-37); Bilirubin Total 3.1 mg/dL (0.0-1.0); Calcium 7.1 mg/dL (8.4-10.2); Carbon Dioxide 22 mmol/L (22-29); Chloride 109 mmol/L (96-108); Creatinine Clr Calc Pharmacy 31.5; Estimated Glomerular Filt Rate 26; Glucose Random 141 mg/dL (60-115); Phosphorus 6.6 mg/dL (2.7-4.5); Potassium 3.7 mmol/L (3.3-5.1); Sodium 143 mmol/L (135-145); Total Protein 7.1 g/dL (6.5-8.0)
[2021-08-16 06:23] LABS: Blood Urea Nitrogen 140 mg/dL (9-16)
[2021-08-16] MEDS: Thiamine HCL 100 MG TABLET PO (08:03)
[2021-08-16] MEDS: 0.9 % Sodium Chloride Flush 3 ML SYRINGE IVFLUSH ×3 (08:04→22:10)
[2021-08-16] MEDS: Lidocaine 4 % Patch ADH..PATCH 1 PATCH TRANSDERMA (08:04)
[2021-08-16] MEDS: Chlorhexidine Gluc Oral Rinse 15 ML MOUTHWASH BUCCAL ×3 (08:04→22:10)
[2021-08-16] MEDS: Albumin Human 25 % 100 ML 50 ML IV ×3 (08:29→17:59)
[2021-08-16 08:33] LABS: Ammonia 60 umol/L (13-55)
[2021-08-16] MEDS: propofoL 1,000 MG/100 ML VIAL 11.24 MG IVCONT ×2 (08:47→14:30)
[2021-08-16 11:31] LABS: Glucose, Whole Blood 112 mg/dL (60-115)
[2021-08-16] MEDS: Esmolol HCl/NaCl Iso 2,500 MG/250 ML IV.SOLN 28.11 MG IVCONT (12:51)
[2021-08-16] MEDS: Insulin Lispro 100 UNIT/ML 3 ML VIAL SUBCUT (13:45)
--- NOTE | 2021-08-16 13:48 | PM.PNNEP ---
Subjective Subjective Date of Service: 08/16/21 Principal diagnosis: AF Interval history: Events noted. All recent data reviewed Physical Exam Vital Signs: Vital Signs: Last Vital Signs Temp 98.3 F 08/16/21 12:00 Pulse 82 08/16/21 13:00 Resp 23 H 08/16/21 13:00 BP 141/60 H 08/16/21 13:00 Pulse Ox 93 08/16/21 13:00 O2 Del Method 08/16/21 13:00 O2 Flow Rate 55 08/14/21 22:00 FiO2 40 08/16/21 13:00 BMI result Body Mass Index 32.1 Const: General: no acute distress Resp: Auscultation: diminished lung sounds Cardio: Rate: regular rate GI: Palpation (GI): Soft to palpation Skin: General skin exam: no rashes or lesions noted Objective Data Labs CBC & Chem 7: 08/16/21 05:25 08/16/21 05:25 Labs: Laboratory Results - last 24 hr 08/15/21 08/15/21 08/15/21 16:38 18:57 23:37 WBC RBC Hgb Hct MCV MCH MCHC RDW Plt Count MPV Absolute Nucleated RBC Nucleated RBC % (auto) PT INR VBG pH VBG pCO2 VBG pO2 VBG HCO3 VBG O2 Saturation VBG Base Excess Sodium Potassium Chloride Carbon Dioxide Anion Gap BUN Creatinine Estim Creat Clear Calc Estimated GFR POC Glucose 151 H 153 H 117 H Random Glucose Lactic Acid Calcium Phosphorus Total Bilirubin AST ALT Alkaline Phosphatase Ammonia Total Protein Albumin 08/16/21 08/16/21 08/16/21 05:25 05:25 05:25 WBC 17.8 H RBC 3.39 L Hgb 10.2 L Hct 29.3 L MCV 86.4 MCH 30.1 MCHC 34.8 RDW 14.7 Plt Count 34 L D MPV Not Reportable Absolute Nucleated RBC 0.150 H Nucleated RBC % (auto) 0.8 H PT INR VBG pH VBG pCO2 VBG pO2 VBG HCO3 VBG O2 Saturation VBG Base Excess Sodium 143 Potassium 3.7 Chloride 109 H Carbon Dioxide 22 Anion Gap 16 BUN 140 H Creatinine 2.52 H Estim Creat Clear Calc 31.5 Estimated GFR 26 POC Glucose Random Glucose 141 H Lactic Acid 1.8 Calcium 7.1 L Phosphorus 6.6 H Total Bilirubin 3.1 H AST 78 H ALT 26 Alkaline Phosphatase 144 H Ammonia Total Protein 7.1 Albumin 2.2 L 08/16/21 08/16/21 08/16/21 05:25 05:30 05:59 WBC RBC Hgb Hct MCV MCH MCHC RDW Plt Count MPV Absolute Nucleated RBC Nucleated RBC % (auto) PT 19.6 H INR 1.7 H VBG pH 7.41 VBG pCO2 33 VBG pO2 45 VBG HCO3 21 L VBG O2 Saturation 64.0 VBG Base Excess -2.0 Sodium Potassium Chloride Carbon Dioxide Anion Gap BUN Creatinine Estim Creat Clear Calc Estimated GFR POC Glucose 111 Random Glucose Lactic Acid Calcium Phosphorus Total Bilirubin AST ALT Alkaline Phosphatase Ammonia Total Protein Albumin 08/16/21 08/16/21 07:59 11:27 WBC RBC Hgb Hct MCV MCH MCHC RDW Plt Count MPV Absolute Nucleated RBC Nucleated RBC % (auto) PT INR VBG pH VBG pCO2 VBG pO2 VBG HCO3 VBG O2 Saturation VBG Base Excess Sodium Potassium Chloride Carbon Dioxide Anion Gap BUN Creatinine Estim Creat Clear Calc Estimated GFR POC Glucose 112 Random Glucose Lactic Acid Calcium Phosphorus Total Bilirubin AST ALT Alkaline Phosphatase Ammonia 60 H Total Protein Albumin Microbiology Microbiology Results: Microbiology 08/14/21 23:17 Sputum - Induced Gram Stain - Final 08/14/21 23:17 Sputum - Induced Sputum Culture - Preliminary Culture in progress. 08/15/21 05:22 Blood - Venous Blood Culture - Preliminary Prelim: GPC Gram Stain only 08/15/21 05:22 Blood - Venous Blood Culture - Preliminary Prelim: GPC Gram Stain only 08/13/21 08:09 Blood - Venous Blood Culture - Final Staphylococcus aureus 08/13/21 08:09 Blood - Venous Blood Culture - Final Staphylococcus aureus 08/11/21 01:50 Blood - Venous Blood Culture - Final Staphylococcus aureus 08/11/21 01:50 Blood - Venous Blood Culture - Final Staphylococcus aureus Procedures Date of Service Date of Service: 08/16/21 Assessment & Plan Assessment and plan (1) Acute kidney injury: Status: Acute Assessment and Plan: Acute kidney injury due to tubular injury superimposed on chronic kidney disease Had adequate diuresis with supportive care. No indication for renal replacement today Shall re evaluate again tomorrow . Shall F/U closely. Time Spent With Patient Time: Total time spent is greater than 50% in coordination of care (as documented) at patient's floor/unit and/or counseling patient: Progress Note: Quality Stroke Does the patient have a stroke diagnosis?: No
--- NOTE | 2021-08-16 16:27 | P.PNCC_ITS ---
Subjective Subjective Date of Service: 08/16/21 Interval History: Mr. Del Toro was transferred to the ICU August 14 of respiratory distress and severe acute delirium. The patient is a 66 yo male with PMHx of obesity, DM on insulin, HTN, HLD, CKD 3, ASHLY.? The patient lives with a lead sharepoint developer of 17 years (not ; the patient?s sister is his HCP).? The patient does drink alcohol, 8 beers/weekend. Echocardiogram June 12 showed EF 55-60%; RV poorly visualized, normal fxn; normal atria; no valvular pathology; normal diastolic dysfunction; IVC not visualized; normal RVSP. The patient was BIBA on August 09 for evaluation of a fall with head injury.? The patient stated that over the prior week he had been experiencing progressively worse pain in his upper back and shoulders.? The morning of admission, he got up to go to the bathroom and he slipped and fell.? He hit his head but denied LOC.? He had also fallen one week prior but did not hit his head, no LOC.? Also had been having chills. In the ED, the patient was noted to be in atrial fibrillation with RVR; had been SR this past May during a cardiology outpatient visit (to address cardiovascular risk factors).? In the ED, he was treated with IV diltiazem with improvement.? BP was soft 105/47, BUN/creatinine 64/2.3 (creat was 1.2 in July,), bicarb 17, potassium 5.1.? Sodium was 127.? Bilirubin 2.0.? Platelet count 86027 (chronic).? Chest x-ray and head and cervical spine CT were unrevealing. The patient was admitted to the hospital with primary dx of new onset atrial fibrillation with RVR, and mild hyponatremia.? Was started on aspirin and Eliquis. The morning of August 11, the patient was noted to be hypotensive.? He was afebrile, but had an elevated WBC, and lactic acid of 5.4.? Cultures were drawn and the patient was given a fluid bolus and put on vanco and ceftriaxone for empiric sepsis.? An ECHOCARDIOGRAM done later that morning for evaluation of the new atrial fibrillation showed normal LV systolic function, normal RV, left atrium mildly dilated, valvular Dopplers unremarkable, IVC normal in size with greater than 50% inspiratory collapse, there was a trivial loculated pericardial effusion overlying left ventricle.? No vegetation was seen. CT abdomen later that day was notable for cirrhotic-appearing liver. Small amount of ascites. Wall thickening of the colon question representing colitis versus changes related to liver disease. Bilateral lower lobe infiltrates, right greater than left and tiny bilateral pleural effusions. BCs came back positive for GPC.? The patient?s HR came down on metoprolol, and diltiazem was d/c?d.? Stool was positive for occult blood, so Eliquis and ASA were d/c?d on 08/12 bec of concern for poss GI bleed, altho Hb was stable.? On 08/12, he became hypoxemic with increased oxygen requirement. ?Thought possible aspiration.? Also had a bloody bowel movement, thought possibly secondary to hemorrhoidal bleed, given his elevated INR.? He was given vitamin K for cirrhosis-related coagulopathy.? The blood cultures came back as MSSA and he was changed to nafcillin.? Altered mental status and homicidal threats were thought secondary to septic encephalopathy.? Seen by psychiatry and they agreed. On 08/13, f/u blood cultures were done, which came back both sets still positive.? Throughout the hospitalization, the patient's BUN has been rising steadily, up to 131 today, altho creatinine has been fairly steady in the range of about 2.2-2.5.? Renal has been following.? In their opinion, that has been secondary to hypoperfusion, and has now possibly progressed to ischemic ATN. On 08/14 the patient became extremely agitated and delirious (?sepsis/uremia/hepatic encephalopathy) with much worsening oxygen requirement.? He was transferred to the ICU.? Precedex calmed him down markedly.? A CVL was placed.? CVP was about 10 mm.? Lactic acid was 1.9.? Ammonia level was 109.? Central venous blood gas showed 7.23/37/-10.? CXR showed low lung volumes with possible mild interstitial edema.? My bedside ECHOCARDIOGRAM for hemod monitoring:? Normal LV size and wall thickness.? Normal contractility, EF approximately 60%.? RV size probably top-normal.? Normal valvular dopplers.? No significant TR. IVC 1.4 cm with minimal insp collapse. We started him on a Lasix drip.? We put a Kaofeed tube down to give him lactulose.? He was having a lot of bleeding from his mouth, possibly bit his to ngue.? Ultimately, his respiratory status and his oxygenation deteriorated and he had to be intubated.? Following that, he went for a CT of his chest and both feet (the latter bec of marked edema, L>R.? Chest CT showed multifocal pneumonia in both lungs, probably aspiration.? CT of both feet was consistent with Charcot foot.? His abx were changed to Zosyn for added GNR pulmonary coverage.? He requ ired 12 cm of PEEP to significantly improve his oxygenation.? His platelet count had dropped to 45,000, he was bleeding from the mouth, and his INR was still elevated.? He was therefore transfused 1 unit of platelets. This morning, he?s sedated on propofol 20ug.? Moves around a little.? Also on Levophed 0.16ug, esmolol 60ug, and Lasix 10mg/hr.? HR 84, converted spont to SR at about noon today.? BP 138/55.? On AC 12/400/40%/+7, RR is 23, Ve 8.5L, PIP 23, ETCO2 27, Sat 94%.? CVBG this morning shows 7.41/33/-2.? He remains afebrile.? No jugular venous distention with the head of the bed at 30 degrees.? Chest is clear to auscultation bilaterally, with normal expiratory phase.? Heart rate and rhythm are regular with normal-sounding S1 and S2, with no murmur or gallops.? Abdomen is rotund and firm, but otherwise benign. ?Has 1+ central edema.? Bilat Charcot foot, left worse than right. (When I showed his feet to his yesterday, she told me that he had problems with his feet for a year.? Initially had Xrays which were normal, but eventually this past October, xrays showed that all the bones in his left foot were broken -- sounds like a textbook case of Charcot foot.) LABORATORY DATA:? As below.? Notably, WBC this morning down to 17.? Platelet count down to 34,000, but no evidence of bleeding anywhere. INR after a total of 50 mg vitamin K is down to 1.7.? BUN/creatinine down to 140/2.5, bicarb up to 22 on the bicarbonate tabs, potassium 3.7, phosphorus down to 6.6.? NH3 down to 60.? Tbili down to 3.1.? Lactic acid 1.8.? POCs 110-140. MICROBIOLOGY:? Blood cultures drawn 08/15 positive for Gram-positive cocci.? This is the third day (08/11, 08/13, and 08/15). TRANSESOPHAGEAL ECHOCARDIOGRAM yesterday done by Dr. Aquino.? I watched the entire procedure.? The echo was essentially normal, both right and left sides.? Trace MR, no TR.? No vegetations. Cervical spine MR 08/15:? No definite destructive changes or discitis or osteomyelitis is seen at this time. ?At C4-C5 there is severe spinal canal stenosis with cord deformity and severe left and moderate right neural foraminal stenosis. Consider neurosurgical evaluation.? Moderate C5-6 spinal canal stenosis and severe bilateral neural foraminal stenosis; severe C6-7 left and moderate right neural foraminal stenosis; severe C7-T1 bilateral neural foraminal stenosis.? There was no epidural abscess. IMPRESSION: 66yo M with obesity, insulin-dep DM2, HTN, HLD, ASHLY, ETOH use.? Presented to ED August 09 with neck and back pain after falling 1 wk prior, without any LOC.? Admitted to Medicine bec of new-onset AF/RVR, hypoNa, EMIGDIO/CKD3. In hospital developed severe sepsis and found to have MSSA bacteremia and cirrhosis [likely EtOH].? Now with hypoxemic respiratory failure and acute encephalopathy 1. Acute hypoxemic respiratory failure.? Suspect mainly fluid overload, complicated by severe encephalopathy and restrictive lung disease, the latter because of his body habitus with a large firm rotund abdomen.? CXR showed small lung holm, CT showed multifocal pneumonia, almost certainly 2? aspiration.? Ultimately required intubation and high PEEP to improve his oxygenation.? Much better today. 2. ID: Severe sepsis w MSSA bacteremia, and multifocal pneumonia.?? Sputum GS is not that impressive, but shows GNRs.? Treating his pneumonia with Zosyn, which also treats his MSSA bacteremia.? No source yet found for the latter.? GIL and MRI unrevealing.? Repeat BCs again tomorrow.? Consulted Dr. Dickens. 3. Metabolic encephalopathy.? 2? sepsis, uremia, hepatic encephalopathy.? NH3 much improved today on lactulose.? We were thinking we?d dialyze him today or tomorrow for uremia, but it looks like that may not be necessary. 4. New-onset AF/RVR.? Started him on esmolol yesterday, converted spont to SR today.? Holding Eliquis for now given bleeding and low plat count. 5. GIB.? On PPI and Vit K.? Hb steady.? Holding Eliquis + ASA. 6. Coagulopathy and thrombocytopenia.? INR improving after full replacement dose vitamin K for cirrhosis-related coagulopathy. 7. EMIGDIO/CKD3.? U/o now picked up to 200cc/hr on Lasix 10mg/hr, and renal indices now sl. improved from yesterday.? Still has 1+ edema.? Hold on dialysis. 8. HypoNa.? Resolved.? In fact, Na is rising with dialysis, will prob need to start water flushes +/- D5W. 9. New dx cirrhosis.? Likely EtOH.? GI consulted, immunologic workup pending. 10. Transaminitis.? Alcoholic vs. septic hepatitis. 11. Thrombocytopenia.? Likely 2? alcoholic cirrhosis exacc by sepsis and critical illness. 12. Hypotensive.? Not grossly septic.? Low BP exacc by diuresis and low albumin.? Cut the Lasix dose to 7mg/hr, will give albumin. 13. DM2.? Changed from insulin drip to SSI.? POCs in a good range. 14. Difficult spine with severe degenerative changes.? As described in MRI report.? Discussed with Dr. Martinez.? At this point, not a surgical candidate, the only thing to do is put a soft collar on.? After he is better, he can be seen by neurosurgery. 15. Charcot foot.? Bilateral. 16. VTE prophylaxis:? SCDs 17. Nutrition.? Started Nepro at 20cc/hr. Critical Care Time (minutes): 60 Physical Exam Vital Signs: Vital Signs: Last Vital Signs Temp 98.3 F 08/16/21 12:00 Pulse 82 08/16/21 16:00 Resp 22 H 08/16/21 16:00 BP 138/55 L 08/16/21 16:00 Pulse Ox 93 08/16/21 16:00 O2 Del Method 08/16/21 16:00 O2 Flow Rate 55 08/14/21 22:00 FiO2 40 08/16/21 16:00 BMI result Body Mass Index 32.1 Objective Data Labs CBC & Chem 7: 08/16/21 05:25 08/16/21 05:25 Labs: Laboratory Results - last 24 hr 08/15/21 08/15/21 08/15/21 16:38 18:57 23:37 WBC RBC Hgb Hct MCV MCH MCHC RDW Plt Count MPV Absolute Nucleated RBC Nucleated RBC % (auto) PT INR VBG pH VBG pCO2 VBG pO2 VBG HCO3 VBG O2 Saturation VBG Base Excess Sodium Potassium Chloride Carbon Dioxide Anion Gap BUN Creatinine Estim Creat Clear Calc Estimated GFR POC Glucose 151 H 153 H 117 H Random Glucose Lactic Acid Calcium Phosphorus Total Bilirubin AST ALT Alkaline Phosphatase Ammonia Total Protein Albumin 08/16/21 08/16/21 08/16/21 05:25 05:25 05:25 WBC 17.8 H RBC 3.39 L Hgb 10.2 L Hct 29.3 L MCV 86.4 MCH 30.1 MCHC 34.8 RDW 14.7 Plt Count 34 L D MPV Not Reportable Absolute Nucleated RBC 0.150 H Nucleated RBC % (auto) 0.8 H PT INR VBG pH VBG pCO2 VBG pO2 VBG HCO3 VBG O2 Saturation VBG Base Excess Sodium 143 Potassium 3.7 Chloride 109 H Carbon Dioxide 22 Anion Gap 16 BUN 140 H Creatinine 2.52 H Estim Creat Clear Calc 31.5 Estimated GFR 26 POC Glucose Random Glucose 141 H Lactic Acid 1.8 Calcium 7.1 L Phosphorus 6.6 H Total Bilirubin 3.1 H AST 78 H ALT 26 Alkaline Phosphatase 144 H Ammonia Total Protein 7.1 Albumin 2.2 L 08/16/21 08/16/21 08/16/21 05:25 05:30 05:59 WBC RBC Hgb Hct MCV MCH MCHC RDW Plt Count MPV Absolute Nucleated RBC Nucleated RBC % (auto) PT 19.6 H INR 1.7 H VBG pH 7.41 VBG pCO2 33 VBG pO2 45 VBG HCO3 21 L VBG O2 Saturation 64.0 VBG Base Excess -2.0 Sodium Potassium Chloride Carbon Dioxide Anion Gap BUN Creatinine Estim Creat Clear Calc Estimated GFR POC Glucose 111 Random Glucose Lactic Acid Calcium Phosphorus Total Bilirubin AST ALT Alkaline Phosphatase Ammonia Total Protein Albumin 08/16/21 08/16/21 07:59 11:27 WBC RBC Hgb Hct MCV MCH MCHC RDW Plt Count MPV Absolute Nucleated RBC Nucleated RBC % (auto) PT INR VBG pH VBG pCO2 VBG pO2 VBG HCO3 VBG O2 Saturation VBG Base Excess Sodium Potassium Chloride Carbon Dioxide Anion Gap BUN Creatinine Estim Creat Clear Calc Estimated GFR POC Glucose 112 Random Glucose Lactic Acid Calcium Phosphorus Total Bilirubin AST ALT Alkaline Phosphatase Ammonia 60 H Total Protein Albumin Microbiology Microbiology Results: Microbiology 08/14/21 23:17 Sputum - Induced Gram Stain - Final 08/14/21 23:17 Sputum - Induced Sputum Culture - Preliminary Culture in progress. 08/15/21 05:22 Blood - Venous Blood Culture - Preliminary Prelim: GPC Gram Stain only 08/15/21 05:22 Blood - Venous Blood Culture - Preliminary Prelim: GPC Gram Stain only 08/13/21 08:09 Blood - Venous Blood Culture - Final Staphylococcus aureus 08/13/21 08:09 Blood - Venous Blood Culture - Final Staphylococcus aureus 08/11/21 01:50 Blood - Venous Blood Culture - Final Staphylococcus aureus 08/11/21 01:50 Blood - Venous Blood Culture - Final Staphylococcus aureus Quality Stroke Does the patient have a stroke diagnosis?: No VTE Prior VTE?: No VTE Risk Level:: Medical - moderate - high VTE Device Contraindication: Treatment Not Indicated VTE Drug Contraindication: N/A - Med Ordered Critical Care Time Critical Care Time (minutes): 60
[2021-08-16 18:09] LABS: Glucose, Whole Blood 105 mg/dL (60-115)
--- NOTE | 2021-08-16 19:25 | PC.NURSE ---
Assumed care at 07:00. Patient continues on Propofol gtt which was titrated from 25 to 15 with good effect, patient able to move all extremities, but does not follow commands, positive cough and gag, PERRL. Patient with generalized swelling, was on Lasix 10 and was lowered to 7 today per MD as patient was 2300 ccs fluid negative for 12 hours as of 17:00. Patient had 1750 ccs of liquid stool via rectal tube and also ammonia was lowered on recheck to 60. Patient with esmolol gtt raised to 60 and heart rhythm did improve from afib rate of 110-130; converted to sinus rhythm. BP tolerated the down-titration of levophed from 0.22 to 0.16. Patient afebrile, Blood cultures continue to show GPCs. Skin with various bruises and discoloration to buttocks, left elbow, right foot.
[2021-08-16] MEDS: Esmolol HCl/NaCl Iso 2,500 MG/250 ML IV.SOLN 33.73 MG IVCONT (20:03)
[2021-08-16] MEDS: Atorvastatin Calcium 40 MG TABLET PO (22:10)
[2021-08-17] VITALS (40 sets, daily range): BP systolic 110–146; BP diastolic 40–73; PULSE 76–105; RESP 12–27; TEMP 34.7–36.9; O2SAT 90–100; BMI 34.9
[2021-08-17] MEDS: ceFAZolin Sodium/Dextrose,Iso 2 GM/50 ML PIGGYBACK IV (00:43)
[2021-08-17] MEDS: Albumin Human 25 % 100 ML 50 ML IV (00:44)
[2021-08-17 01:00] LABS: Glucose, Whole Blood 154 mg/dL (60-115)
[2021-08-17] MEDS: Insulin Lispro 100 UNIT/ML 3 ML VIAL SUBCUT ×4 (01:31→18:51)
[2021-08-17] MEDS: propofoL 1,000 MG/100 ML VIAL 14.06 MG IVCONT (03:36)
[2021-08-17] MEDS: Esmolol HCl/NaCl Iso 2,500 MG/250 ML IV.SOLN 11.24 MG IVCONT (03:38)
[2021-08-17] MEDS: Sodium Bicarbonate 650 MG TABLET G-TUBE ×4 (03:41→22:23)
[2021-08-17] MEDS: Lactulose 20 GM/30 ML SOLUTION 40 GM G-TUBE ×2 (05:22→16:55)
[2021-08-17] MEDS: Pantoprazole Sodium 40 MG/10 ML VIAL IVPUSH ×2 (05:30→16:55)
[2021-08-17 05:44] LABS: VBG Base Excess -2.9 mmol/L; VBG HCO3 20 mmol/L (22-26); VBG pCO2 32 mmHg; VBG pH 7.41 (7.32-7.43); VBG pO2 49 mmHg
[2021-08-17 05:49] LABS: Glucose, Whole Blood 193 mg/dL (60-115)
[2021-08-17 05:58] LABS: Hemoglobin 7.7 g/dl (14.0-18.0); PLT ABN DIST 1; Red Cell Distribution Width 15.3 % (11.0-16.0)
[2021-08-17 06:00] LABS: Hematocrit 22.9 % (42.0-52.0); Mean Corpuscular HGB Conc 33.6 g/dl (31.0-36.0); Mean Corpuscular Hemoglobin 29.8 pg (27.0-33.0); Mean Corpuscular Volume 88.8 fL (80.0-98.0); NRBC Pct Auto 0.4 /100WBC (0.0-0.2); Red Blood Count 2.58 X10*6/uL (4.60-5.80); White Blood Count 16.6 X10*3/uL (4.8-10.8)
[2021-08-17 06:06] LABS: INTERNATIONAL NORM RATIO 1.8 (0.9-1.1); Prothrombin Time 21.2 SEC (9.9-13.0)
[2021-08-17 06:07] LABS: Platelet Count 20 X10*3/uL (160-400)
--- NOTE | 2021-08-17 06:07 | PC.NURSE ---
SHIFT EVAL: ASSUMED CARE OF PT AT 1900. PT MAINTAINED ON AC VENT SETTINGS OVERNIGHT. ETT SUCTIONED FOR MOD AMT OF BLOOD STREAKED THICK SPUTUM. FIO2 HAD TO BE INCREASED TO 60% TO MAINTAIN O2 SAT >90%. GEOVANI OLGUIN NOTIFIED OF INCREASED O2 REQUIREMENTS AND PEEP INCREASED TO 8 PER HIS ORDER. MONITOR SHOWED ST, RATE 70'S-80'S, OCC PVC NOTED. SHORT RUN OF AFIB 110'S NOT FOR ONLY A FEW SECONDS. ESMOLOL GTT AT 30 MCG/KG/MIN. BP STABLE ON LEVOPHED WHICH WAS WE DECREASED TO .1 MCG/KG/MIN. LASIX GTT CONTINUES AT 7 MG/HR. U/O IS 30-100 ML/HR. LABS DRAWN THIS MORNING SHOW A HGB/HCT OF 7.7/22.9 AND PLT OF 20. THIS WAS REPORTED TO GEOVANI OLGUIN AND PLAN TO ADMINISTER 2 UNITS OF PLATELETS AND VIT K.
[2021-08-17 06:09] LABS: Lactic Acid 1.8 mmol/L (0.5-2.0)
[2021-08-17 06:17] LABS: Alanine Aminotransferase 16 U/L (0-40); Albumin Level 3.2 g/dL (3.5-5.0); Alkaline Phosphatase 102 U/L (39-117); Anion Gap 20 (12-20); Aspartate Amino Transferase 57 U/L (5-37); Calcium 7.7 mg/dL (8.4-10.2); Carbon Dioxide 20 mmol/L (22-29); Chloride 112 mmol/L (96-108); Creatinine Clr Calc Pharmacy 30.1; Estimated Glomerular Filt Rate 23; Glucose Random 227 mg/dL (60-115); Magnesium 2.5 mg/dL (1.6-2.6); Sodium 148 mmol/L (135-145); Total Protein 7.2 g/dL (6.5-8.0)
[2021-08-17 06:30] LABS: Blood Urea Nitrogen 132 mg/dL (9-16)
[2021-08-17 06:41] LABS: Ammonia 43 umol/L (13-55)
[2021-08-17 06:51] LABS: Venous Blood Gas Refer to POC result
[2021-08-17] MEDS: Chlorhexidine Gluc Oral Rinse 15 ML MOUTHWASH BUCCAL ×3 (07:47→22:23)
[2021-08-17] MEDS: Lidocaine 4 % Patch ADH..PATCH 1 PATCH TRANSDERMA (07:47)
[2021-08-17] MEDS: Thiamine HCL 100 MG TABLET PO (07:47)
[2021-08-17] MEDS: 0.9 % Sodium Chloride Flush 3 ML SYRINGE IVFLUSH ×2 (07:48→16:55)
[2021-08-17] MEDS: Furosemide 500 MG in Container,Empty 0 ML IVCONT (07:53)
[2021-08-17] MEDS: propofoL 1,000 MG/100 ML VIAL 11.24 MG IVCONT (11:07)
[2021-08-17 13:00] LABS: Glucose, Whole Blood 236 mg/dL (60-115)
--- NOTE | 2021-08-17 14:14 | PM.PNNEP ---
Subjective Subjective Date of Service: 08/17/21 Principal diagnosis: AF Interval history: Events noted. All recent data reviewed Physical Exam Vital Signs: Vital Signs: Last Vital Signs Temp 97.6 F 08/17/21 08:39 Pulse 84 08/17/21 13:00 Resp 26 H 08/17/21 13:00 BP 127/54 L 08/17/21 13:00 Pulse Ox 91 L 08/17/21 13:00 O2 Del Method 08/17/21 13:00 O2 Flow Rate 55 08/14/21 22:00 FiO2 50 08/17/21 13:00 BMI result Body Mass Index 34.9 Const: General: no acute distress Neck: Neck: Yes supple Resp: Auscultation: diminished lung sounds Cardio: Rate: regular rate GI: Palpation (GI): Soft to palpation Skin: General skin exam: no rashes or lesions noted Objective Data Labs CBC & Chem 7: 08/17/21 05:40 08/17/21 05:40 Labs: Laboratory Results - last 24 hr 08/14/21 08/16/21 08/17/21 23:33 18:04 00:56 WBC RBC Hgb Hct MCV MCH MCHC RDW Plt Count MPV Absolute Nucleated RBC Nucleated RBC % (auto) PT INR VBG pH VBG pCO2 VBG pO2 VBG HCO3 VBG O2 Saturation VBG Base Excess Sodium Potassium Chloride Carbon Dioxide Anion Gap BUN Creatinine Estim Creat Clear Calc Estimated GFR POC Glucose 105 154 H Random Glucose Lactic Acid Calcium Phosphorus Magnesium Total Bilirubin AST ALT Alkaline Phosphatase Ammonia Total Protein Albumin Blood Type A Positive Antibody Screen NEGATIVE 08/17/21 08/17/21 08/17/21 05:40 05:40 05:40 WBC 16.6 H RBC 2.58 L D Hgb 7.7 L D Hct 22.9 L D MCV 88.8 MCH 29.8 MCHC 33.6 RDW 15.3 Plt Count 20 L* MPV Not Reportable Absolute Nucleated RBC 0.070 H Nucleated RBC % (auto) 0.4 H PT 21.2 H INR 1.8 H VBG pH VBG pCO2 VBG pO2 VBG HCO3 VBG O2 Saturation VBG Base Excess Sodium 148 H Potassium 4.0 Chloride 112 H Carbon Dioxide 20 L Anion Gap 20 BUN 132 H Creatinine 2.75 H Estim Creat Clear Calc 30.1 Estimated GFR 23 POC Glucose Random Glucose 227 H D Lactic Acid Calcium 7.7 L D Phosphorus 7.0 H Magnesium 2.5 Total Bilirubin 4.0 H AST 57 H ALT 16 Alkaline Phosphatase 102 D Ammonia Total Protein 7.2 Albumin 3.2 L D Blood Type Antibody Screen 08/17/21 08/17/21 08/17/21 05:40 05:40 05:40 WBC RBC Hgb Hct MCV MCH MCHC RDW Plt Count MPV Absolute Nucleated RBC Nucleated RBC % (auto) PT INR VBG pH 7.41 VBG pCO2 32 VBG pO2 49 VBG HCO3 20 L VBG O2 Saturation 71.0 VBG Base Excess -2.9 Sodium Potassium Chloride Carbon Dioxide Anion Gap BUN Creatinine Estim Creat Clear Calc Estimated GFR POC Glucose Random Glucose Lactic Acid 1.8 Calcium Phosphorus Magnesium Total Bilirubin AST ALT Alkaline Phosphatase Ammonia 43 Total Protein Albumin Blood Type Antibody Screen 08/17/21 08/17/21 05:45 12:57 WBC RBC Hgb Hct MCV MCH MCHC RDW Plt Count MPV Absolute Nucleated RBC Nucleated RBC % (auto) PT INR VBG pH VBG pCO2 VBG pO2 VBG HCO3 VBG O2 Saturation VBG Base Excess Sodium Potassium Chloride Carbon Dioxide Anion Gap BUN Creatinine Estim Creat Clear Calc Estimated GFR POC Glucose 193 H 236 H Random Glucose Lactic Acid Calcium Phosphorus Magnesium Total Bilirubin AST ALT Alkaline Phosphatase Ammonia Total Protein Albumin Blood Type Antibody Screen Microbiology Microbiology Results: Microbiology 08/14/21 23:17 Sputum - Induced Gram Stain - Final 08/14/21 23:17 Sputum - Induced Sputum Culture - Final 08/15/21 05:22 Blood - Venous Blood Culture - Preliminary Staphylococcus aureus 08/15/21 05:22 Blood - Venous Blood Culture - Preliminary Staphylococcus aureus 08/13/21 08:09 Blood - Venous Blood Culture - Final Staphylococcus aureus 08/13/21 08:09 Blood - Venous Blood Culture - Final Staphylococcus aureus 08/11/21 01:50 Blood - Venous Blood Culture - Final Staphylococcus aureus 08/11/21 01:50 Blood - Venous Blood Culture - Final Staphylococcus aureus Procedures Date of Service Date of Service: 08/17/21 Assessment & Plan Assessment and plan (1) Acute kidney injury: Status: Acute Assessment and Plan: Acute kidney injury due to tubular injury superimposed on chronic kidney disease Had adequate diuresis with supportive care. No indication for renal replacement today Hold diuretics for a diuretic holiday. Shall re evaluate again tomorrow . Shall F/U closely. Time Spent With Patient Time: Total time spent is greater than 50% in coordination of care (as documented) at patient's floor/unit and/or counseling patient: Progress Note: Quality Stroke Does the patient have a stroke diagnosis?: No
[2021-08-17 15:37] LABS: Mitochondrial Antibodies NEGATIVE (NEGATIVE)
[2021-08-17] MEDS: propofoL 1,000 MG/100 ML VIAL 8.43 MG IVCONT (16:55)
--- NOTE | 2021-08-17 17:45 | PM.CCPN ---
Subjective Subjective Date of Service: 08/17/21 Interval History: Mr. Del Toro was transferred to the ICU August 14 of respiratory distress and severe acute delirium. The patient is a 66 yo male with PMHx of obesity, DM on insulin, HTN, HLD, CKD 3, ASHLY.? The patient lives with a questioned documents examiner of 17 years (not ; the patient?s sister is his HCP).? The patient does drink alcohol, 8 beers/weekend. Echocardiogram June 12 showed EF 55-60%; RV poorly visualized, normal fxn; normal atria; no valvular pathology; normal diastolic dysfunction; IVC not visualized; normal RVSP. The patient was BIBA on August 09 for evaluation of a fall with head injury.? The patient stated that over the prior week he had been experiencing progressively worse pain in his upper back and shoulders.? The morning of admission, he got up to go to the bathroom and he slipped and fell.? He hit his head but denied LOC.? He had also fallen one week prior but did not hit his head, no LOC.? Also had been having chills. In the ED, the patient was noted to be in atrial fibrillation with RVR; had been SR this past May during a cardiology outpatient visit (to address cardiovascular risk factors).? In the ED, he was treated with IV diltiazem with improvement.? BP was soft 105/47, BUN/creatinine 64/2.3 (creat was 1.2 in July,), bicarb 17, potassium 5.1.? Sodium was 127.? Bilirubin 2.0.? Platelet count 62054 (chronic).? Chest x-ray and head and cervical spine CT were unrevealing. The patient was admitted to the hospital with primary dx of new onset atrial fibrillation with RVR, and mild hyponatremia.? Was started on aspirin and Eliquis. The morning of August 11, the patient was noted to be hypotensive.? He was afebrile, but had an elevated WBC, and lactic acid of 5.4.? Cultures were drawn and the patient was given a fluid bolus and put on vanco and ceftriaxone for empiric sepsis.? An ECHOCARDIOGRAM done later that morning for evaluation of the new atrial fibrillation showed normal LV systolic function, normal RV, left atrium mildly dilated, valvular Dopplers unremarkable, IVC normal in size with greater than 50% inspiratory collapse, there was a trivial loculated pericardial effusion overlying left ventricle.? No vegetation was seen. CT abdomen later that day was notable for cirrhotic-appearing liver. Small amount of ascites. Wall thickening of the colon question representing colitis versus changes related to liver disease. Bilateral lower lobe infiltrates, right greater than left and tiny bilateral pleural effusions. BCs came back positive for GPC.? The patient?s HR came down on metoprolol, and diltiazem was d/c?d.? Stool was positive for occult blood, so Eliquis and ASA were d/c?d on 08/12 bec of concern for poss GI bleed, altho Hb was stable.? On 08/12, he became hypoxemic with increased oxygen requirement.? Thought possible aspiration.? Also had a bloody bowel movement, thought possibly secondary to hemorrhoidal bleed, given his elevated INR.? He was given vitamin K for cirrhosis-related coagulopathy.? The blood cultures came back as MSSA and he was changed to nafcillin.? Altered mental status and homicidal threats were thought secondary to septic encephalopathy.? Seen by psychiatry and they agreed. On 08/13, f/u blood cultures were done, which came back both sets still positive.? Throughout the hospitalization, the patient's BUN has been rising steadily, up to 131 today, altho creatinine has been fairly steady in the range of about 2.2-2.5.? Renal has been following.? In their opinion, that has been secondary to hypoperfusion, and has now possibly progressed to ischemic ATN. On 08/14 the patient became extremely agitated and delirious (?sepsis/uremia/hepatic encephalopathy) with much worsening oxygen requirement.? He was transferred to the ICU.? Precedex calmed him down markedly.? A CVL was placed.? Lactic acid was 1.9.? Ammonia level was 109.? Central venous blood gas showed 7.23/37/-10.? CXR showed low lung volumes with possible mild interstitial edema.? My bedside ECHOCARDIOGRAM for hemod monitoring showed: Normal LV size and wall thickness; normal contractility, EF approximately 60%; RV size probably top-normal; normal valvular dopplers; no significant TR; IVC 1.4 cm with minimal insp collapse. We started him on a Lasix drip.? We put a Kaofeed tube down to give him lactulose.? He was having a lot of bleeding from his mouth, possibly bit his tongue.? Ultimately, his respiratory status and his oxygenation deteriorated, prob 2? aspiration, compounded by his abdominal habitus, and he had to be intubated.? Following that, he went for a CT of his chest and both feet (the latter bec of marked edema, L>R).? Chest CT showed multifocal pneumonia in both lungs, probably aspiration.? CT of both feet was consistent with Charcot foot.? His abx were changed to Zosyn for added GNR pulmonary coverage.? He required 12 cm of PEEP to significantly improve his oxygenation.? His platelet count had dropped to 45,000, he was bleeding from the mouth, and his INR was still elevated.? He was transfused 1 unit of platelets. His renal indices were slightly improved yesterday and he made 5L of urine on the Lasix drip at 10mg/hr.? We cut the drip down to 7mg/hr.? He was bleeding from his mouth and had bloody tracheal secretions, w plat count down to 20K this morning.? He was given another 1 bag of platelets. Today, he?s sedated on propofol 20ug.? Moves all 4 spontanously.? Also on Levophed 0.02ug, esmolol 10ug.? HR 89, converted spont to SR yesterday.? BP 119/39.? On AC 12/400/50%/+8, RR is 26, Ve 10L, PIP 28, Sat 96%.? CVBG this morning shows 7.41/32/-2.? He remains afebrile.? No jugular venous distention with the head of the bed at 30 degrees.? Chest is clear to auscultation bilaterally, with normal expiratory phase.? Tracheal secretions are moderately bloody. ?Heart rate and rhythm are regular with normal-sounding S1 and S2, with no murmur or gallops.? Abdomen is rotund and firm, but otherwise benign.? Has 1-2+ central edema.? Bilat Charcot foot, left worse than right. (When I showed his feet to his , she told me that he?d had problems with his feet for a year.? Initially had Xrays which were normal, but eventually this past October, xrays showed that all the bones in his left foot were broken -- a textbook case of Charcot foot.) LABORATORY DATA:? As below.? Notably, WBC this morning down slightly to 16.? Platelet count down to 20,000K. INR after a total of 50 mg vitamin K got down only as low as 1.7.? BUN down to 132, creatinine up to 2.75, bicarb down to 20 on the bicarbonate tabs, potassium 4.0, phosphorus up to 7.0.? Bili up to 4.0, NH3 down to 43.? Lactic acid stable at 1.8.? POCs 190-220.? Albumin up to 3.2. MICROBIOLOGY:? Blood cultures drawn 08/11, 08/13, and 08/15 positive for MSSA.? Repeat cx?s drawn this morning. TRANSESOPHAGEAL ECHOCARDIOGRAM yesterday done by Dr. Aquino.? I watched the entire procedure.? The echo was essentially normal, both right and left sides.? Trace MR, no TR.? No vegetations. Cervical spine MR 08/15:? No definite destructive changes or discitis or osteomyelitis is seen at this time. ?At C4-C5 there is severe spinal canal stenosis with cord deformity and severe left and moderate right neural foraminal stenosis. Consider neurosurgical evaluation.? Moderate C5-6 spinal canal stenosis and severe bilateral neural foraminal stenosis; severe C6-7 left and moderate right neural foraminal stenosis; severe C7-T1 bilateral neural foraminal stenosis.? There was no epidural abscess. IMPRESSION: 66yo M with obesity, insulin-dep DM2, HTN, HLD, ASHLY, ETOH use.? Presented to ED August 09 with neck and back pain after falling 1 wk prior, without any LOC.? Admitted to [facility] of new-onset AF/RVR, hypoNa, EMIGDIO/CKD3. In hospital developed severe sepsis and found to have MSSA bacteremia and cirrhosis [likely EtOH].? Now with hypoxemic respiratory failure and acute encephalopathy 1. Acute hypoxemic respiratory failure.? Suspect mainly fluid overload, complicated by severe encephalopathy and restrictive lung disease, the latter because of his body habitus with a large firm rotund abdomen.? CXR showed small lung holm, CT showed multifocal pneumonia, almost certainly 2? aspiration. ?Ultimately required intubation and high PEEP to improve his oxygenation.? Altho FiO2 is down to 40%, I would be cautious about considering extubation until his BUN comes down further. 2. ID: Severe sepsis w MSSA bacteremia, and multifocal pneumonia. ?Sputum GS is not that impressive, showed GNRs, but grew mixed dg.? MSSA bacteremia.? No source yet found for the latter.? GIL and MRI unrevealing.? Repeat BCs from today pending.? Consulted Dr. Dickens yesterday, she changed his Abx to cefazolin. 3. Metabolic encephalopathy.? 2? sepsis, uremia, hepatic encephalopathy.? NH3 improved today on lactulose, I?ll drop the dose down to once daily.? We were thinking we?d dialyze him for uremia, but with his BUN dropping the last two days, that may not be necessary. 4. New-onset AF/RVR.? Started him on esmolol on 08/15, and he converted spont to SR yesterday.? Holding Eliquis for now given bleeding and low plat count. 5. GIB, mouth bleeding, tracheal bleeding.? Stool is brown, hemoccult positive.? On PPI, and has had full 50 mg replacement dose of Vit K.? Hb dropped 2.5g over last day.? Holding Eliquis + ASA.? Follow.? Recheck H&H and plat count this evening. 6. Cirrhosis-related coagulopathy and thrombocytopenia.? PT is uncorrectable.? Will transfuse another unit platelets now, and then recheck Hb and plat count. 7. EMIGDIO/CKD3.? Still has 1+ edema.? Stop the Lasix now, recheck renal indices in the morning.? Still holding on dialysis. 8. Hypernatremia.? Na elizabteh with diuresis.? He?s getting free water flushes.? Stopped the Lasix today.? Recheck tomorrow, may need D5W infusion. 9. New dx cirrhosis.? Likely 2? EtOH.? GI consulted, immunologic workup pending. 10. Transaminitis.? Alcoholic vs. septic hepatitis. 11. Thrombocytopenia.? Likely 2? alcoholic cirrhosis exacc by critical illness. 12. Hypotensive.? Not grossly septic.? Low BP exacc by diuresis and low albumin.? Stopped the Lasix and gave him albumin.? BP is better. 13. DM2.? Changed from insulin drip to SSI.? POCs in a good range. 14. Difficult spine with severe degenerative changes.? As described in MRI report.? Discussed with Dr. Martinez.? At this point, not a surgical candidate, the only thing to do is put a soft collar on.? After he is better, he can be seen by neurosurgery. 15. Charcot foot.? Bilateral. 16. VTE prophylaxis:? SCDs 17. Nutrition.? Started Nepro at 20cc/hr. Critical Care Time (minutes): 60 Physical Exam Vital Signs: Vital Signs: Last Vital Signs Temp 98.2 F 08/17/21 16:00 Pulse 83 08/17/21 17:00 Resp 22 H 08/17/21 17:00 BP 129/48 L 08/17/21 17:00 Pulse Ox 95 08/17/21 17:00 O2 Del Method 08/17/21 17:00 O2 Flow Rate 55 08/14/21 22:00 FiO2 50 08/17/21 17:00 BMI result Body Mass Index 34.9 Objective Data Labs CBC & Chem 7: 08/17/21 05:40 08/17/21 05:40 Labs: Laboratory Results - last 24 hr 08/13/21 08/13/21 08/14/21 08:09 08:09 23:33 WBC RBC Hgb Hct MCV MCH MCHC RDW Plt Count MPV Absolute Nucleated RBC Nucleated RBC % (auto) PT INR VBG pH VBG pCO2 VBG pO2 VBG HCO3 VBG O2 Saturation VBG Base Excess Sodium Potassium Chloride Carbon Dioxide Anion Gap BUN Creatinine Estim Creat Clear Calc Estimated GFR POC Glucose Random Glucose Lactic Acid Calcium Phosphorus Magnesium Total Bilirubin AST ALT Alkaline Phosphatase Ammonia Total Protein Albumin ZAYDA Titer TNP ZAYDA Titer 2 TNP ZAYDA Titer 3 TNP ZAYDA Pattern TNP ZAYDA Pattern 2 TNP ZAYDA Pattern 3 TNP Anti-Mitochondrial Ab NEGATIVE Blood Type A Positive Antibody Screen NEGATIVE 08/16/21 08/17/21 08/17/21 18:04 00:56 05:40 WBC RBC Hgb Hct MCV MCH MCHC RDW Plt Count MPV Absolute Nucleated RBC Nucleated RBC % (auto) PT 21.2 H INR 1.8 H VBG pH VBG pCO2 VBG pO2 VBG HCO3 VBG O2 Saturation VBG Base Excess Sodium Potassium Chloride Carbon Dioxide Anion Gap BUN Creatinine Estim Creat Clear Calc Estimated GFR POC Glucose 105 154 H Random Glucose Lactic Acid Calcium Phosphorus Magnesium Total Bilirubin AST ALT Alkaline Phosphatase Ammonia Total Protein Albumin ZAYDA Titer ZAYDA Titer 2 ZAYDA Titer 3 ZAYDA Pattern ZAYDA Pattern 2 ZAYDA Pattern 3 Anti-Mitochondrial Ab Blood Type Antibody Screen 08/17/21 08/17/21 08/17/21 05:40 05:40 05:40 WBC 16.6 H RBC 2.58 L D Hgb 7.7 L D Hct 22.9 L D MCV 88.8 MCH 29.8 MCHC 33.6 RDW 15.3 Plt Count 20 L* MPV Not Reportable Absolute Nucleated RBC 0.070 H Nucleated RBC % (auto) 0.4 H PT INR VBG pH VBG pCO2 VBG pO2 VBG HCO3 VBG O2 Saturation VBG Base Excess Sodium 148 H Potassium 4.0 Chloride 112 H Carbon Dioxide 20 L Anion Gap 20 BUN 132 H Creatinine 2.75 H Estim Creat Clear Calc 30.1 Estimated GFR 23 POC Glucose Random Glucose 227 H D Lactic Acid Calcium 7.7 L D Phosphorus 7.0 H Magnesium 2.5 Total Bilirubin 4.0 H AST 57 H ALT 16 Alkaline Phosphatase 102 D Ammonia 43 Total Protein 7.2 Albumin 3.2 L D ZAYDA Titer ZAYDA Titer 2 ZAYDA Titer 3 ZAYDA Pattern ZAYDA Pattern 2 ZAYDA Pattern 3 Anti-Mitochondrial Ab Blood Type Antibody Screen 08/17/21 08/17/21 08/17/21 05:40 05:40 05:45 WBC RBC Hgb Hct MCV MCH MCHC RDW Plt Count MPV Absolute Nucleated RBC Nucleated RBC % (auto) PT INR VBG pH 7.41 VBG pCO2 32 VBG pO2 49 VBG HCO3 20 L VBG O2 Saturation 71.0 VBG Base Excess -2.9 Sodium Potassium Chloride Carbon Dioxide Anion Gap BUN Creatinine Estim Creat Clear Calc Estimated GFR POC Glucose 193 H Random Glucose Lactic Acid 1.8 Calcium Phosphorus Magnesium Total Bilirubin AST ALT Alkaline Phosphatase Ammonia Total Protein Albumin ZAYDA Titer ZAYDA Titer 2 ZAYDA Titer 3 ZAYDA Pattern ZAYDA Pattern 2 ZAYDA Pattern 3 Anti-Mitochondrial Ab Blood Type Antibody Screen 08/17/21 12:57 WBC RBC Hgb Hct MCV MCH MCHC RDW Plt Count MPV Absolute Nucleated RBC Nucleated RBC % (auto) PT INR VBG pH VBG pCO2 VBG pO2 VBG HCO3 VBG O2 Saturation VBG Base Excess Sodium Potassium Chloride Carbon Dioxide Anion Gap BUN Creatinine Estim Creat Clear Calc Estimated GFR POC Glucose 236 H Random Glucose Lactic Acid Calcium Phosphorus Magnesium Total Bilirubin AST ALT Alkaline Phosphatase Ammonia Total Protein Albumin ZAYDA Titer ZAYDA Titer 2 ZAYDA Titer 3 ZAYDA Pattern ZAYDA Pattern 2 ZAYDA Pattern 3 Anti-Mitochondrial Ab Blood Type Antibody Screen Microbiology Microbiology Results: Microbiology 08/14/21 23:17 Sputum - Induced Gram Stain - Final 08/14/21 23:17 Sputum - Induced Sputum Culture - Final 08/15/21 05:22 Blood - Venous Blood Culture - Preliminary Staphylococcus aureus 08/15/21 05:22 Blood - Venous Blood Culture - Preliminary Staphylococcus aureus 08/13/21 08:09 Blood - Venous Blood Culture - Final Staphylococcus aureus 08/13/21 08:09 Blood - Venous Blood Culture - Final Staphylococcus aureus 08/11/21 01:50 Blood - Venous Blood Culture - Final Staphylococcus aureus 08/11/21 01:50 Blood - Venous Blood Culture - Final Staphylococcus aureus Quality Stroke Does the patient have a stroke diagnosis?: No VTE Prior VTE?: No VTE Risk Level:: Medical - moderate - high VTE Device Contraindication: Treatment Not Indicated VTE Drug Contraindication: N/A - Med Ordered Critical Care Time Critical Care Time (minutes): 60
[2021-08-17 18:10] LABS: Glucose, Whole Blood 262 mg/dL (60-115)
[2021-08-17 19:46] LABS: Hematocrit 22.8 % (42.0-52.0); Hemoglobin 7.6 g/dl (14.0-18.0); Mean Corpuscular HGB Conc 33.3 g/dl (31.0-36.0); Mean Corpuscular Hemoglobin 29.7 pg (27.0-33.0); Mean Corpuscular Volume 89.1 fL (80.0-98.0); Mean Platelet Volume 11.5 fL (9.4-12.4); NRBC Pct Auto 0.2 /100WBC (0.0-0.2); Red Blood Count 2.56 X10*6/uL (4.60-5.80); Red Cell Distribution Width 15.6 % (11.0-16.0); White Blood Count 16.4 X10*3/uL (4.8-10.8)
[2021-08-17 19:48] LABS: Platelet Count 50 X10*3/uL (160-400)
[2021-08-17] MEDS: Atorvastatin Calcium 40 MG TABLET PO (22:23)
[2021-08-17] MEDS: Esmolol HCl/NaCl Iso 2,500 MG/250 ML IV.SOLN 33.73 MG IVCONT (22:26)
[2021-08-18] VITALS (34 sets, daily range): BP systolic 94–143; BP diastolic 40–65; PULSE 67–133; RESP 11–23; TEMP 34–36.8; O2SAT 90–99; BMI 34.4
[2021-08-18] MEDS: 0.9 % Sodium Chloride Flush 3 ML SYRINGE IVFLUSH ×3 (00:19→18:53)
[2021-08-18 00:20] LABS: Glucose, Whole Blood 266 mg/dL (60-115)
[2021-08-18] MEDS: Insulin Lispro 100 UNIT/ML 3 ML VIAL SUBCUT ×4 (00:23→18:57)
[2021-08-18] MEDS: ceFAZolin Sodium/Dextrose,Iso 2 GM/50 ML PIGGYBACK IV ×2 (00:27→23:52)
--- NOTE | 2021-08-18 00:32 | PC.NURSE ---
Assumed care at 07:00. Patient continues on Propofol gtt which was titrated from 25 to 20 with good effect, patient able to move all extremities, discussed with MD in the evening and authorized spontaneous awakening trial at 17:50 with good effect, patient consistently followed commands, tracked, positive cough and gag, PERRL. After a few hours, Patient started becoming dysynchronous with ventilator and had to restart sedation, unfortunately as high as 30 mcg/kg/min. Patient was also in sinus rhythm 80's-90's all day, but now has gone back into a-fib after spontaneous awakening trial with rates varying 100's-140, esmolol gtt had been titrated from 20 to 10 and now was uptitrated to 75 and then 100 per PA. Levophed was weaned all the way off after discussion with MD, and unfortunately patient's MAP dropped to 52 after turning off levophed; was kept most of the day at 0.04-0.02, but now after returning to a-fib is at 0.1. Patient with generalized swelling, was on Lasix 7 today, which was discontined in early afternoon by MD. and was lowered to 7 today per MD as patient was 2300 ccs fluid negative for 12 hours as of 17:00. He is approximately 800 ccs fluid positive over 12 hours. He also has pitting edema in an anasarca pattern with left foot more swollen than right, but right arm more swollen than left. Patient had 1000 ccs of dark brown with slight greenish hue liquid stool via rectal tube. Patient afebrile. Skin with various bruises and discoloration to buttocks, left elbow, right foot; noticed a petichiae character to rash on buttocks as well as presence of same rash in bilateral groin, MD aware and in to see rash.
[2021-08-18] MEDS: propofoL 1,000 MG/100 ML VIAL 16.87 MG IVCONT ×2 (00:46→20:29)
[2021-08-18] MEDS: Esmolol HCl/NaCl Iso 2,500 MG/250 ML IV.SOLN 84.33 MG IVCONT (02:07)
[2021-08-18] MEDS: Sodium Bicarbonate 650 MG TABLET G-TUBE ×4 (03:20→20:29)
[2021-08-18 05:16] LABS: VBG Base Excess -1.6 mmol/L; VBG HCO3 23 mmol/L (22-26); VBG pCO2 38 mmHg; VBG pH 7.38 (7.32-7.43); VBG pO2 52 mmHg
[2021-08-18] MEDS: Esmolol HCl/NaCl Iso 2,500 MG/250 ML IV.SOLN 56.22 MG IVCONT (05:21)
[2021-08-18] MEDS: propofoL 1,000 MG/100 ML VIAL 14.06 MG IVCONT (05:22)
[2021-08-18 05:23] LABS: Venous Blood Gas Refer to POC result
[2021-08-18 05:24] LABS: Basophils Percent Auto 0.1 % (0-2); Eosinophils Percent Auto 0.2 % (0-4); Hemoglobin 7.5 g/dl (14.0-18.0); Imm Gran Abs Auto 0.21 X10*3/uL (0.00-0.03); Imm Gran Pct Auto 1.2 % (0.0-0.4); Lymphocytes Absolute Auto 0.9 X10*3/uL (1.2-4.9); Lymphocytes Percent Auto 5.3 % (20-40); MANUAL DIFF FLAG SCAN; Mean Corpuscular HGB Conc 32.6 g/dl (31.0-36.0); Mean Corpuscular Hemoglobin 29.4 pg (27.0-33.0); Mean Corpuscular Volume 90.2 fL (80.0-98.0); Mean Platelet Volume 12.3 fL (9.4-12.4); Monocytes Absolute Auto 0.5 X10*3/uL (0.1-1.2); Monocytes Percent Auto 2.7 % (2-11); NRBC Pct Auto 0.3 /100WBC (0.0-0.2); Neutrophils Absolute Auto 15.6 x10*3/uL (2.0-8.3); Neutrophils Percent Auto 90.5 % (45-73); Red Blood Count 2.55 X10*6/uL (4.60-5.80); Red Cell Distribution Width 15.9 % (11.0-16.0); SCAN SMEAR FLAG 1; White Blood Count 17.2 X10*3/uL (4.8-10.8)
[2021-08-18 05:26] LABS: Platelet Count 46 X10*3/uL (160-400)
[2021-08-18 05:42] LABS: SLIDE REVIEW VERIFIED
[2021-08-18 05:50] LABS: Alanine Aminotransferase 10 U/L (0-40); Albumin Level 2.7 g/dL (3.5-5.0); Alkaline Phosphatase 88 U/L (39-117); Anion Gap 19 (12-20); Aspartate Amino Transferase 48 U/L (5-37); Bilirubin Total 2.5 mg/dL (0.0-1.0); Blood Urea Nitrogen 124 mg/dL (9-16); Calcium 7.8 mg/dL (8.4-10.2); Carbon Dioxide 21 mmol/L (22-29); Chloride 114 mmol/L (96-108); Creatinine Clr Calc Pharmacy 52.2; Estimated Glomerular Filt Rate 44; Glucose Random 328 mg/dL (60-115); Phosphorus 7.4 mg/dL (2.7-4.5); Potassium 3.9 mmol/L (3.3-5.1); Sodium 150 mmol/L (135-145); Total Protein 7.6 g/dL (6.5-8.0)
[2021-08-18 06:26] LABS: Ammonia 49 umol/L (13-55)
[2021-08-18] MEDS: Chlorhexidine Gluc Oral Rinse 15 ML MOUTHWASH BUCCAL ×3 (08:06→20:29)
[2021-08-18] MEDS: Thiamine HCL 100 MG TABLET PO (08:06)
[2021-08-18] MEDS: Lidocaine 4 % Patch ADH..PATCH 1 PATCH TRANSDERMA (08:07)
--- NOTE | 2021-08-18 09:01 | MHC.CLN ---
F/U PT REMAINS INTUBATED AND SEDATED PT WITH NEPRO AT 20ML/HR CURRENTLY RECOMMEND NEPRO AT MAX GOAL RATE 35ML/HR WITH 240ML FREE WATER FLUSHES Q 4 HRS TO PROVIDE 1512KCALS (1809KCALS WITH SEDATION; 23KCALS/KG), 68G PROTEIN (.8G/KG), 2050ML TOTAL WATER FROM FORMULA AND FLUSHES (25.9ML/KG) MONITOR TOLERANCE, RESIDUALS AND LYTES
--- NOTE | 2021-08-18 09:17 | P.CNHO_ITS ---
Subjective - Subjective Chief complaint: Consult for: 1. Leukocytosis. 2. Anemia. 3. Thrombocytopenia. Patient: new to practice Consult date: 08/18/21 Requesting Physician: maryann Primary Care Provider: Ada Urisa NP Medical Summary: DIAGNOSIS: 1. LEUKOCYTOSIS. 2. ANEMIA. 3. THROMBOCYTOPENIA. HPI - Consult Narrative Reason for consult: Consult for: 1. Anemia. 2. Leukocytosis. 3. Thrombocytopenia. Narrative: Levi Del Toro is a pleasant 66 year old gentleman initially admitted on 08/09: He was BIBA on August 09 for evaluation of a fall with head injury.?He stated that over the prior week he had been experiencing progressively worse pain in his upper back and shoulders.? The morning of admission, he got up to go to the bathroom and he slipped and fell.? He hit his head but denied LOC.? He has also fallen one week prior but did not hit his head, no LOC.? Also had been having chills. In the ED, the patient was noted to be in atrial fibrillation with RVR; had been SR this past May during a cardiology outpatient visit (to address cardiovascular risk factors).? He was treated with 10 mg IV diltiazem with improvement.? BP was soft 105/47, BUN/creatinine 64-2.3 (was 1.2 in July,), bicarb 17, potassium 5.1.? Sodium was 127. ?Bilirubin 2.0.? Platelet count 27804 (chronic).? Chest x-ray and head and cervical spine CT were unrevealing. He was admitted with the primary dx of new onset atrial fibrillation with RVR, and mild hyponatremia.? Was started on aspirin and Eliquis. The morning of August 11, the patient was noted to be hypotensive and afebrile, but had an elevated WBC, and lactic acid of 5.4.? Cultures were drawn and the patient was given a fluid bolus and put on vanco and ceftriaxone for empiric sepsis.? An ECHOCARDIOGRAM done later that morning for evaluation of the new atrial fibrillation showed normal LV systolic function, normal RV, left atrium mildly dilated, valvular Dopplers unremarkable, IVC normal in size with greater than 50% inspiratory collapse, there was a trivial loculated pericardial effus ion overlying left ventricle.? No vegetation was seen. CT abdomen on 08/11 notable for cirrhotic-appearing liver. Small amount of ascites. Wall thickening of the colon question representing colitis versus changes related to liver disease. Bilateral lower lobe infiltrates, right greater than left and tiny bilateral pleural effusions. BCs came back positive for GPC.? The patient?s HR came down on metoprolol, and diltiazem was d/c?d.? Stool was positive for occult blood; Eliquis and ASA were d/c?d on 08/12 bec of concern for poss GI bleed, altho Hb was stable.? On 08/12, he became hypoxemic with increased oxygen requirement.? Thought possible aspiration.? Also had a bloody bowel movement, thought possibly secondary to hemorrhoidal bleed, given his elevated INR.? He was given vitamin K for cirrhosis-related coagulopathy. ?The blood cultures came back as MSSA and he was changed to nafcillin.? Altered mental status and homicidal threats were thought secondary to septic encephalopathy.? Seen by psychiatry and they agreed. On 08/13, f/u blood cultures were done, which came back both sets still positive.? Throughout the hospitalization, the patient's creatinine has been fairly steady in the range of about 2.2-2.5, but his BUN has been rising steadily up to 131.? Renal has been following.? In their opinion, the patient this has been secondary to hypoperfusion, and has now possibly progressed to ischemic ATN. He was transferred to ICU on 08/14 due to respiratory distress and severe acute delirium. In the morning the patient became extremely agitated and delirious with much worsening oxygen requirement.? A non-rebreather face mask was placed.? He seemed to be complaining of new onset chest pain and worsening upper back pain.? The patient was struggling to breathe on the NRBFM, and was severely delirious.? In the ICU the patient was immed started on Precedex, which calmed him down markedly.? With the addition of low dose propfol, a central line was placed.? Estimated CVP from the CVL placement was 13cm water (10 mm Hg).? On NRBFM 15L the Sat was 95%, with RR mid 20s, with much improved resp pattern.? HR 80?s Afib, BP 127/66.? Last temp 96.9.? There was no JVD.? Chest probably clear on inspiration (underneath his upper airway rhonchi), but rhochorous on exhalation.? Normal exp phase.? Soft heart tones.? Murmur or gallop appreciated.? His abdomen was very rotund and firm.? Liver was 3 FB.? Abdomen other wound otherwise benign.? No peripheral edema, but he had a swollen left foot. LABORATORY DATA after arrival to the ICU:? Lactic acid was 1.9.? Ammonia level was 109.? Central venous blood gas showed 7.23/37/-10. CXR showed low lung volumes with possible mild interstitial edema.? No significant change from the previous film of August 12. He was evaluated by GI on 08/09. Dr. Medina's note: IMPRESSION: Liver cirrhosis. The pattern of his liver function test elevations consistent with alcohol and he may have underlying alcoholic liver disease that has progressed to cirrhosis. Previous imaging studies have not documented liver abnormalities including ultrasound in the past. I would recommend obtaining ultrasound as a CT with somewhat of a limited study due to a lack of contrast in the patient's arm position. Further evaluation with autoimmune metabolic markers is ordered. PMHx: Obesity, DM on insulin, HTN, HLD, CKD 3, ASHLY.? Echocardiogram June 12 showed EF 55-60%; RV poorly visualized, normal fxn; normal atria; no valvular pathology; normal diastolic dysfunction; IVC not visualized; normal RVSP. SOCIAL HISTORY: The patient lives with a cook helper dessert of 17 years (not ; the patient?s sister is his HCP).? The patient does drink alcohol, 8 beers/weekend. Review of Systems - Constitutional Reports system reviewed and no additional complaints, except as documented - Eyes Reports system reviewed and no additional complaints, except as documented - ENT Reports system reviewed and no additional complaints, except as documented - Cardiovascular Reports system reviewed and no additional complaints, except as documented - Respiratory Reports no additional respiratory complaints - Gastrointestinal Reports system reviewed and no additional complaints, except as documented - Genitourinary Genitourinary: Reports no additional male genitourinary complaints - Musculoskeletal Reports system reviewed and no additional complaints, except as documented - Integumentary/Breasts Skin/Breast: Reports no additional skin complaints - Neurologic Reports system reviewed and no additional complaints, except as documented, Reports weakness - Psychiatric Reports system reviewed and no additional complaints, except as documented - Endocrine Reports no additional endocrine complaints - Hematologic/Lymphatic Reports system reviewed and no additional complaints, except as documented - Allergic/Immunologic Reports system reviewed and no additional complaints, except as documented Oncology Screenings - ECOG Performance Status ECOG Performance Status: 2 [facility] Medical History: Medical History (Last Updated 08/20/21 @ 19:33 by Sanchez Wills MD) Allergic rhinitis CKD (chronic kidney disease) stage 3, GFR 30-59 ml/min Diffuse pulmonary alveolar hemorrhage Erectile dysfunction Essential hypertension Hyperlipidemia LDL goal <70 Obesity (BMI 30-39.9) Obstructive sleep apnea Other and unspecified hyperlipidemia Retinopathy Tubular adenoma Type 2 diabetes mellitus with chronic kidney disease Type 2 diabetes mellitus with hyperglycemia, with long-term current use of insulin Vitamin D deficiency Functional capacity: bed bound Patient : No Family History: Family History (Last Reviewed 08/09/21 @ 10:34 by Ambrocio Morgan MD) Father Myocardial infarction CVD (cardiovascular disease) Mother Diabetes Surgical History: Surgical History (Last Reviewed 08/09/21 @ 10:34 by Ambrocio Morgan MD) History of surgical procedure on eye proper using laser Hx of cataract surgery Hx of cholecystectomy Hx of colonoscopy with polypectomy Social History: Social History (Last Reviewed 08/09/21 @ 10:34 by Ambrocio Morgan MD) Living Situation History: Household Members: Children Housing: Apartment Tobacco History: Patient Tobacco Use Status: Never used Tobacco Occupation Assessmet: service: No Current occupational status: retired Current occupational status: disabled 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 Home Medications and Allergies Current Medications: Current Medications Albuterol/Ipratropium (Albuterol/Iprat 2.5/0.5mg 3 Ml Ampul.Neb) 3 ml INHALE RQ4H PRN PRN Reason: wheezing/shortness of breath Last Admin: 08/14/21 22:00 Dose: 3 ml Atorvastatin Calcium (Atorvastatin Calcium 40 Mg Tablet) 40 mg PO BEDTIME MENG Last Admin: 08/17/21 22:23 Dose: 40 mg Chlorhexidine Gluconate (Chlorhexidine Gluc Oral Rinse 15 Ml Mouthwash) 15 ml BUCCAL TID MENG Last Admin: 08/18/21 08:06 Dose: 15 ml Norepinephrine Bitartrate (Levophed) 8 mg in 250 mls @ 0 mls/hr IVCONT .Q0M MENG; Protocol Last Titration: 08/18/21 08:27 Dose: 0.09 mcg/kg/min, 15.81 mls/hr Propofol (Diprivan) 1,000 mg in 100 mls @ 0 mls/hr IVCONT .Q0M MENG; Protocol Last Titration: 08/18/21 07:17 Dose: 20 mcg/kg/min, 11.24 mls/hr Esmolol HCl (Brevibloc/Nacl) 2,500 mg in 250 mls @ 0 mls/hr IVCONT .Q0M MENG; Protocol Last Titration: 08/18/21 07:16 Dose: 50 mcg/kg/min, 28.11 mls/hr Cefazolin Sodium/Dextrose (Ancef) 2 gm in 50 mls @ 100 mls/hr IV Q24H MENG Last Infusion: 08/18/21 01:11 Dose: Infused Insulin Human Lispro (Insulin Lispro 100 Unit/Ml 3 Ml Vial) 0 unit SUBCUT Q6H MENG; Protocol Last Admin: 08/18/21 05:29 Dose: 6 unit Lactulose (Lactulose 20 Gm/30 Ml Solution) 40 gm G-TUBE Q24H MENG Last Admin: 08/17/21 19:40 Dose: Not Given Lidocaine (Lidocaine 4 % Patch Adh..Patch) 1 patch TRANSDERMA DAILY [facility]; Protocol Last Admin: 08/18/21 08:07 Dose: 1 patch Sodium Bicarbonate (Sodium Bicarbonate 650 Mg Tablet) 650 mg G-TUBE Q6H MENG Last Admin: 08/18/21 08:06 Dose: 650 mg Sodium Chloride (0.9 % Sodium Chloride Flush 3 Ml Syringe) 3 ml IVFLUSH QSHIFT [facility] Last Admin: 08/18/21 07:45 Dose: 3 ml Thiamine HCl (Thiamine Hcl 100 Mg Tablet) 100 mg PO DAILY MENG Last Admin: 08/18/21 08:06 Dose: 100 mg Home Medications Medication Instructions Recorded Confirmed Type amlodipine 5 mg tablet 5 mg PO DAILY 02/01/20 08/09/21 History aspirin 81 mg tablet,delayed 81 mg PO BEDTIME 02/01/20 08/09/21 History release atorvastatin 40 mg tablet 40 mg PO DAILY 02/01/20 08/09/21 History blood sugar diagnostic #10 ea 02/01/20 06/03/21 History furosemide 20 mg tablet 20 mg PO DAILY 02/01/20 08/09/21 History hydrochlorothiazide 25 mg tablet 25 mg PO DAILY 02/01/20 08/09/21 History lancets 33 gauge #100 ea 02/01/20 06/20/21 History losartan 100 mg tablet 100 mg PO QAM 02/01/20 08/09/21 History metoprolol succinate 200 mg 200 mg PO BEDTIME 02/01/20 08/09/21 History tablet,extended release 24 hr omeprazole 20 mg capsule,delayed 20 mg PO QAM 02/01/20 08/09/21 History release spironolactone 25 mg tablet 25 mg PO DAILY 04/26/20 08/09/21 History sildenafil 100 mg tablet 100 mg PO DAILY PRN Sexual Activity 05/16/20 08/09/21 History calcium carbonate 600 mg-vitamin 1 tab PO DAILY 06/20/21 08/09/21 History D3 10 mcg (400 unit) tablet atorvastatin 40 mg tablet 1 tab PO BEDTIME 08/09/21 08/09/21 History Allergies Allergy/AdvReac Type Severity Reaction Status Date / Time FRESH FRUIT Allergy Unknown ITCHY EARS Uncoded 06/03/21 10:48 THROAT Sesonal allergies Allergy Unknown itchiness Uncoded 06/03/21 10:48 some fresh fruit Allergy Unknown itchiness Uncoded 06/03/21 10:48 Physical Exam Vital signs: Vital Signs Temp 97.6 F 08/18/21 08:00 Pulse 75 08/18/21 09:00 Resp 17 08/18/21 09:00 BP 122/53 L 08/18/21 09:00 Pulse Ox 90 L 08/18/21 09:00 O2 Del Method 08/18/21 09:00 O2 Flow Rate 55 08/14/21 22:00 FiO2 45 08/18/21 09:00 Intake & Output 08/17/21 08/18/21 08/18/21 18:59 06:59 18:59 Intake Total 1491.871 / 2993.013 1481.142 / 2993.013 352.846 / 352.846 Output Total 2170 / 3275 805 / 3275 395 / 395 Balance -678.129 / -281.987 676.142 / -281.987 -42.154 / -42.154 Urine Output (Average ml/kg/hr) 0.93 0.65 0.20 Intake: Intake, Tube Feeding Amount 240 / 500 240 / 500 60 / 60 Intake, Tube Irrigant Amount 285 / 765 480 / 765 90 / 90 Intake (Blood Product) Amount 518 / 518 Aph Plts Pas Lvds (Ea137) Unit 253 / 253 [id number] Aph Plts Pas Lvds (Ea138) Unit 265 / 265 [id number] Intake, IV Amount 448.871 / 1210.013 761.142 / 1210.013 202.846 / 202.846 ceFAZolin Sodium/Dextrose,Iso 2 50 / 50 gm In 50 ml @ 100 mls/hr IV Q24H MENG Rx#:[id number] Esmolol HCl/NaCl Iso 2,500 mg 153.988 / 625.285 471.297 / 625.285 107.755 / 107.755 In 250 ml @ Per Protocol IVCONT .Q0M MENG Rx#:[id number] Furosemide 500 mg In Container, 14.175 / 14.175 Empty 0 ml @ 7 MG/HR 0.7 mls/hr IVCONT .Q24H MENG Rx#: [id number] Norepinephrine Bitartrate/NS 8 123.570 / 297.522 173.952 / 297.522 68.143 / 68.143 mg In 250 ml @ Per Protocol IVCONT .Q0M MENG Rx#:[id number] propofoL 1,000 mg In 100 ml @ 157.138 / 223.031 65.893 / 223.031 26.948 / 26.948 Per Protocol IVCONT .Q0M MENG Rx #:[id number] Output: Output, Stool Amount 1000 / 1000 Output, Tube Amount 150 / 150 A 150 / 150 Output, Urine Amount (Catheter) 1170 / 2125 805 / 2125 245 / 245 Condom Catheter 270 / 420 150 / 420 95 / 95 Coude 900 / 1705 655 / 1705 150 / 150 Other: Urine Color Phyllis Last Bowel Movement 08/17/21 08/18/21 Stool Rectal tube Stool Amount Copious Stool Color Dark Brown Stool Consistency Liquid Weight 102.6 kg [place] Weight in Grams 005396 Weight 102.6 kg - Constitutional Present: mild distress Hem/Onc Consult Result - Labs CBC & Chem 7: 08/22/21 05:15 08/22/21 14:17 Labs: Short CBC 08/17/21 08/18/21 Range/Units 19:30 05:08 WBC 16.4 H 17.2 H (4.8-10.8) X10*3/uL Hgb 7.6 L 7.5 L (14.0-18.0) g/dl Hct 22.8 L 23.0 L (42.0-52.0) % Plt Count 50 L D 46 L (160-400) X10*3/uL BMP 08/18/21 05:08 Sodium 150 H Potassium 3.9 Chloride 114 H Carbon Dioxide 21 L BUN 124 H Creatinine 1.57 H Calcium 7.8 L Liver Function 08/18/21 Range/Units 05:08 Total Bilirubin 2.5 H (0.0-1.0) mg/dL AST 48 H (5-37) U/L ALT 10 (0-40) U/L Alkaline Phosphatase 88 (39-117) U/L Albumin 2.7 L (3.5-5.0) g/dL Assessment and Plan Patient Active problem list reviewed?: Yes (1) Thrombocytopenia Status: Acute Assessment and plan: 66 year old gentleman, with obesity, insulin-dep DM2, HTN, HLD, ASHLY, ETOH use.? He had presented on August 09 with neck and back pain after falling 1 wk prior, without any LOC.? Admitted due to new-onset AF/RVR, hyponatremia and, EMIGDIO/CKD3. Noted to have developed severe sepsis and found to have MSSA bacteremia. Now with hypoxemic respiratory failure and acute encephalopathy. He is vented. Noted to have anemia and thrombocytopenia in conjunction with leukocytosis. Peripheral smear: Normocytic and normochromic mild anemia with occasional nucleated RBCs consistent with anemia of chronic disease. Thrombocytopenia consider reactive process. Leukocytosis reactive. Ultrasound of the abdomen from 08/13: Very limited exam. Cirrhotic-appearing liver and small amount of ascites. DIFFERENTIAL DIAGNOSIS: 1. ALCOHOL-RELATED CIRRHOSIS AND HYPERSPLENISM; this is most likely. 2. RELATED TO BACTEREMIA: Is likely coexisting. 3: MEDICATION RELATED: Antibiotics can lower platelet count. 4. ITP: Is in the differential. 5. UNDERLYING MYELO INFILTRATIVE DISORDER: Less likely. 6. DIC: Is a possibility however not likely, his fibrinogen was elevated. PT PTT elevated due to the coagulopathy from liver disease. 7. TTP/HUS. In the differential however: he smear reveals no fragments. Looking back his platelets have been on the lower side since 02/09: 106. It is went down to 63 on 08/09 on admission. PLAN: He will continue to be treated with antibiotics for his bacteremia. Will continue to monitor. He has been receiving platelets as needed. If the platelet count drops to 15 or below, will consider,a bone marrow exam. Thank you, Patient was discharged on 08/22. Discharge summary: 66-year-old type 2 diabetic with chronic stage III diabetic nephropathy has bilateral Charcot feet and had been falling lately so he presented to the emergency room and it was noted that he had a left foot abscess positive for methicillin sensitive Staph aureus as well as MSSA Staph bacteremia on all cultures spanning 5 days between the and the of of this month despite being on nafcillin and then the latest cultures from the were finally negative remaining on nafcillin at this point He developed an agitated delirium and hypoxic respiratory failure presenting with a multi lobar picture 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 diffuse alveolar hemorrhage along with progressive and now hemodialysis Dre requiring renal failure with significant azotemia but not frankly uremic but marked fluid overload with considerably elevated central venous pressure which went up to about 15 at clearly with increased chest infiltration probably consistent with pulmonary edema superimposed on the hemorrhagic picture He also developed a diffuse picture of palpable purpura and 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 He required multiple units of platelet transfusion and several units of red cell transfusion but the last 24 hours both his hemoglobin stabilizing at 8.6 and his platelet stabilizing at 47,000 for the 1st time. Today because of fluid overload I placed a dialysis catheter he had 3 hours of dialysis and they removed 2500 cc of fluid CVP came down to 8 respiratory status looks comfortable In addition he has paroxysmal atrial fibrillation that response to Cardizem currently in normal sinus rhythm Time spent discussing smoking cessation with patient: more than 10 minutes. - Time Spent With Patient Time Spent with Patient (in minutes): 30
[2021-08-18 09:18] LABS: Rheumatoid Factor < 15.0 IU/mL (<15.0)
[2021-08-18 09:39] LABS: Fibrinogen 336 MG/DL (259-690); INTERNATIONAL NORM RATIO 1.6 (0.9-1.1); Prothrombin Time 18.6 SEC (9.9-13.0)
[2021-08-18 09:41] LABS: Partial Thromboplastin Time 40.7 SEC (24.1-38.0)
[2021-08-18 10:12] LABS: Erythrocyte Sedimentation Rate 109 MM/HR (0-15)
[2021-08-18] MEDS: Esmolol HCl/NaCl Iso 2,500 MG/250 ML IV.SOLN 28.11 MG IVCONT (11:51)
[2021-08-18 11:55] LABS: Glucose, Whole Blood 268 mg/dL (60-115)
[2021-08-18 12:00] LABS: Glucose, Whole Blood 262 mg/dL (60-115)
--- NOTE | 2021-08-18 13:01 | MHC.CM.PN ---
Case Management continues to follow for discharge planning needs when appropriate.
[2021-08-18] MEDS: propofoL 1,000 MG/100 ML VIAL 11.24 MG IVCONT (13:14)
--- NOTE | 2021-08-18 13:25 | PM.CNPUL ---
History of Present Illness History of Present Illness Consult date: 08/18/21 Chief complaint: new onset atrial fibrillation moni Narrative: This is an inpatient pulmonary consultation. The patient is a 66-year-old gentleman with past medical history of diabetes mellitus on insulin, hypertension, hyperlipidemia, chronic kidney disease stage 3, echocardiogram June 12 showed EF 55-60% no valvular pathology and normal diastolic dysfunction,? patient refuse to repeat history since he feels he provided all information to the ER physician, as per Dr. Crabtree from ER patient came to emergency room due to upper back and shoulder pain of 1 week duration as per patient he fell down 1 week ago with no head injury or loss of consciousness and since then he has been having constant achy pain worse with movement of his head neck in arms he did not take any analgesics SF took 1 aspirin, this morning patient was going to the bathroom and he slipped and fell down hit his head but denied loss of consciousness he also complains of headache of 1 week duration, he denies any chest pain, no palpitation he has occasional shortness of breath on exertion he? also complains of on and off shakiness he denies abdominal pain no nausea no vomiting no urinary frequency urgency or dysuria, in the emergency room patient noted to be in atrial fibrillation with rapid ventricular response patient treated with 1 dose of diltiazem 10 mg IV ventricular rate improved, chest x-ray CT head and cervical spine showed no acute abnormality troponin is mildly elevated at 18.1, BUN 64 creatinine 2.35 ,with no recent renal function, blood sugars 177,AST, ALT, bilirubin elevated 88, 55 and 2.0., COVID-19 negative[place] [id number] that is chronic, low sodium of 127, patient is being admitted to hospital with a diagnosis of new onset atrial fibrillation with RVR acute on chronic kidney disease, mild hyponatremia. During the hospital course the patient developed altered mental status. He also was noted to have positive bacteremia. He was admitted to the ICU where he needed to be intubated for respiratory failure. He had been treated for Staph aureus infection. He has had a CT scan demonstrating multiple areas of airspace disease. His oxygen requirements have been increasing. His repeat chest x-ray demonstrated fluffy ill-defined opacities bilaterally. He also had significant amount of blood that there were suctioning via ETT. The question of vasculitis chemo. The patient developed a rash with evidence of ecchymosis throughout his body concerns for palpable purpura. Surgery is planning to do a biopsy of this CT findings. Infectious Disease also is concerned that the areas of ecchymosis could be related to the staph infection his blood. I did evaluate the patient. No evidence of any active blood that is being suction to the D2. However, because of the findings in the concern will plan for bronchoscopy to rule out diffuse alveolar hemorrhage. Also to assess the area of bleeding in the 1st place. The patient also has some kidney insufficiency. Therefore pulmonary renal syndromes are in the differential the ankle test and other connective tissue disease workup still pending. This will take some time. Review of Systems Review of Systems: Yes unobtainable due to endotracheal tube and Unobtainable due to mental condition PMFSH Past Medical History Medical History Allergic rhinitis Erectile dysfunction Obstructive sleep apnea Retinopathy Tubular adenoma Vitamin D deficiency Functional capacity: bed bound Family History Family History Father Myocardial infarction CVD (cardiovascular disease) Mother Diabetes Surgical History Surgical History History of surgical procedure on eye proper using laser Hx of cataract surgery Hx of cholecystectomy Hx of colonoscopy with polypectomy Social History Social History Household Members: Children Housing: Apartment Patient Tobacco Use Status: Never used Tobacco service: No Current occupational status: retired and disabled 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 Meds Allergies Allergy/AdvReac Type Severity Reaction Status Date / Time FRESH FRUIT Allergy Unknown ITCHY EARS Uncoded 06/03/21 10:48 THROAT Sesonal allergies Allergy Unknown itchiness Uncoded 06/03/21 10:48 some fresh fruit Allergy Unknown itchiness Uncoded 06/03/21 10:48 Active Medications: Current Medications Albuterol/Ipratropium (Albuterol/Iprat 2.5/0.5mg 3 Ml Ampul.Neb) 3 ml INHALE RQ4H PRN PRN Reason: wheezing/shortness of breath Last Admin: 08/14/21 22:00 Dose: 3 ml Atorvastatin Calcium (Atorvastatin Calcium 40 Mg Tablet) 40 mg PO BEDTIME MENG Last Admin: 08/17/21 22:23 Dose: 40 mg Chlorhexidine Gluconate (Chlorhexidine Gluc Oral Rinse 15 Ml Mouthwash) 15 ml BUCCAL TID [facility] Last Admin: 08/18/21 08:06 Dose: 15 ml Norepinephrine Bitartrate (Levophed) 8 mg in 250 mls @ 0 mls/hr IVCONT .Q0M [facility]; Protocol Last Titration: 08/18/21 08:27 Dose: 0.09 mcg/kg/min, 15.81 mls/hr Propofol (Diprivan) 1,000 mg in 100 mls @ 0 mls/hr IVCONT .Q0M [facility]; Protocol Last Admin: 08/18/21 13:14 Dose: 20 mcg/kg/min, 11.24 mls/hr Esmolol HCl (Brevibloc/Nacl) 2,500 mg in 250 mls @ 0 mls/hr IVCONT .Q0M [facility]; Protocol Last Admin: 08/18/21 11:51 Dose: 50 mcg/kg/min, 28.11 mls/hr Cefazolin Sodium/Dextrose (Ancef) 2 gm in 50 mls @ 100 mls/hr IV Q24H [facility] Last Infusion: 08/18/21 01:11 Dose: Infused Insulin Human Lispro (Insulin Lispro 100 Unit/Ml 3 Ml Vial) 0 unit SUBCUT Q6H [facility]; Protocol Last Admin: 08/18/21 12:01 Dose: 6 unit Lactulose (Lactulose 20 Gm/30 Ml Solution) 40 gm G-TUBE Q24H [facility] Last Admin: 08/17/21 19:40 Dose: Not Given Lidocaine (Lidocaine 4 % Patch Adh..Patch) 1 patch TRANSDERMA DAILY [facility]; Protocol Last Admin: 08/18/21 08:07 Dose: 1 patch Sodium Bicarbonate (Sodium Bicarbonate 650 Mg Tablet) 650 mg G-TUBE Q6H [facility] Last Admin: 08/18/21 08:06 Dose: 650 mg Sodium Chloride (0.9 % Sodium Chloride Flush 3 Ml Syringe) 3 ml IVFLUSH QSHIFT [facility] Last Admin: 08/18/21 07:45 Dose: 3 ml Thiamine HCl (Thiamine Hcl 100 Mg Tablet) 100 mg PO DAILY [facility] Last Admin: 08/18/21 08:06 Dose: 100 mg Home Medications Medication Instructions Recorded Confirmed Last Taken Type amlodipine 5 mg tablet 5 mg PO DAILY 02/01/20 08/09/21 08/08/21 History aspirin 81 mg tablet,delayed 81 mg PO BEDTIME 02/01/20 08/09/21 08/08/21 History release atorvastatin 40 mg tablet 40 mg PO DAILY 02/01/20 08/09/21 08/08/21 History blood sugar diagnostic #10 ea 02/01/20 06/03/21 Unknown History furosemide 20 mg tablet 20 mg PO DAILY 02/01/20 08/09/21 08/08/21 History hydrochlorothiazide 25 mg tablet 25 mg PO DAILY 02/01/20 08/09/21 08/08/21 History lancets 33 gauge #100 ea 02/01/20 06/20/21 Unknown History losartan 100 mg tablet 100 mg PO QAM 02/01/20 08/09/21 08/08/21 History metoprolol succinate 200 mg 200 mg PO BEDTIME 02/01/20 08/09/21 08/08/21 History tablet,extended release 24 hr omeprazole 20 mg capsule,delayed 20 mg PO QAM 02/01/20 08/09/21 Unknown History release spironolactone 25 mg tablet 25 mg PO DAILY 04/26/20 08/09/21 08/08/21 History sildenafil 100 mg tablet 100 mg PO DAILY PRN Sexual Activity 05/16/20 08/09/21 Unknown History calcium carbonate 600 mg-vitamin 1 tab PO DAILY 06/20/21 08/09/21 08/08/21 History D3 10 mcg (400 unit) tablet atorvastatin 40 mg tablet 1 tab PO BEDTIME 08/09/21 08/09/21 08/08/21 History dulaglutide 0.75 mg/0.5 mL 0.75 mg subcut WE 08/09/21 08/09/21 08/06/21 History subcutaneous pen injector (Trulicity) insulin aspart U-100 100 unit/mL 35 unit subcut TIDAC 08/09/21 08/09/21 08/08/21 History (3 mL) subcutaneous pen (Novolog Flexpen U-100 Insulin aspart) insulin glargine U-300 conc 300 135 unit subcut DAILY 08/09/21 08/09/21 08/08/21 History unit/mL (3 mL) subcutaneous pen (Toujeo Max U-300 SoloStar) Physical Exam Vital Signs: Vital Signs: Last Vital Signs Temp 97.7 F 08/18/21 12:00 Pulse 114 H 08/18/21 13:00 Resp 13 08/18/21 13:00 BP 120/55 L 08/18/21 13:00 Pulse Ox 91 L 08/18/21 13:00 O2 Del Method 08/18/21 13:00 O2 Flow Rate 55 08/14/21 22:00 FiO2 45 08/18/21 13:00 BMI result Body Mass Index 34.4 Const: General: ill appearing Neck: Neck: Yes supple Chest: Chest palpation & inspection: normal inspection of the chest Resp: Auscultation: diminished lung sounds Cardio: Rate: regular rate GI: Palpation (GI): Soft to palpation Skin: General skin exam: petechiae and purpura Results Laboratory Findings CBC and BMP: 08/18/21 05:08 08/18/21 05:08 ABG, PT/INR, D-dimer: PT/INR, D-dimer PT 18.6 SEC (9.9-13.0) H 08/18/21 09:05 INR 1.6 (0.9-1.1) H 08/18/21 09:05 Abnormal lab findings: Abnormal Labs 08/09/21 08/09/21 08/09/21 04:31 04:31 05:02 WBC 15.0 H RBC 4.22 L Hgb 12.7 L Hct 37.6 L Plt Count 63 L MPV 13.4 H Immature Gran % (Auto) Neut % (Auto) Lymph % (Auto) Lymph # (Auto) Abs Immat Gran (auto) Absolute Neuts (auto) Absolute Nucleated RBC Nucleated RBC % (auto) Neutrophils % (Manual) Band Neutrophils % Lymphocytes % (Manual) 9 L Monocytes % (Manual) 23 H Abs Neuts (Manual) 10.2 H Lymphocytes # (Manual) Monocytes # (Manual) 3.5 H ESR PT 14.5 H INR 1.3 H APTT VBG pH VBG HCO3 Sodium 127 L Chloride 94 L Carbon Dioxide 17 L Anion Gap 21 H BUN 64 H Creatinine 2.35 H POC Glucose Random Glucose 177 H Lactic Acid Lactic Acid F/U @ 2Hr Lactic Acid F/U @ 4Hr Calcium Phosphorus Magnesium TIBC Ferritin Total Bilirubin 2.0 H Direct Bilirubin AST 88 H ALT 55 H Alkaline Phosphatase Ammonia Troponin I High Sens C-Reactive Protein B-Natriuretic Peptide Total Protein Albumin 3.0 L Lipase 169 H Vitamin B1 Ur Specific [place] Random Vancomycin 08/09/21 08/09/21 08/09/21 10:52 14:09 16:00 WBC RBC Hgb Hct Plt Count MPV Immature Gran % (Auto) Neut % (Auto) Lymph % (Auto) Lymph # (Auto) Abs Immat Gran (auto) Absolute Neuts (auto) Absolute Nucleated RBC Nucleated RBC % (auto) Neutrophils % (Manual) Band Neutrophils % Lymphocytes % (Manual) Monocytes % (Manual) Abs Neuts (Manual) Lymphocytes # (Manual) Monocytes # (Manual) ESR PT INR APTT VBG pH VBG HCO3 Sodium 129 L Chloride 95 L Carbon Dioxide 18 L Anion Gap 21 H BUN 72 H Creatinine 2.50 H POC Glucose 141 H 145 H Random Glucose 149 H Lactic Acid Lactic Acid F/U @ 2Hr Lactic Acid F/U @ 4Hr Calcium Phosphorus Magnesium TIBC Ferritin Total Bilirubin Direct Bilirubin AST ALT Alkaline Phosphatase Ammonia Troponin I High Sens C-Reactive Protein B-Natriuretic Peptide Total Protein Albumin Lipase Vitamin B1 Ur Specific [place] Random Vancomycin 08/09/21 08/10/21 08/10/21 20:47 05:48 06:51 WBC RBC Hgb Hct Plt Count MPV Immature Gran % (Auto) Neut % (Auto) Lymph % (Auto) Lymph # (Auto) Abs Immat Gran (auto) Absolute Neuts (auto) Absolute Nucleated RBC Nucleated RBC % (auto) Neutrophils % (Manual) Band Neutrophils % Lymphocytes % (Manual) Monocytes % (Manual) Abs Neuts (Manual) Lymphocytes # (Manual) Monocytes # (Manual) ESR PT INR APTT VBG pH VBG HCO3 Sodium 130 L Chloride Carbon Dioxide 19 L Anion Gap BUN 86 H Creatinine 2.02 H POC Glucose 179 H 173 H Random Glucose 168 H Lactic Acid Lactic Acid F/U @ 2Hr Lactic Acid F/U @ 4Hr Calcium 8.3 L Phosphorus Magnesium TIBC Ferritin Total Bilirubin 1.9 H Direct Bilirubin 1.2 H AST 107 H ALT 60 H Alkaline Phosphatase Ammonia Troponin I High Sens C-Reactive Protein B-Natriuretic Peptide Total Protein Albumin 2.7 L Lipase 79 H Vitamin B1 Ur Specific [place] Random Vancomycin 08/10/21 08/10/21 08/10/21 11:04 15:43 20:22 WBC RBC Hgb Hct Plt Count MPV Immature Gran % (Auto) Neut % (Auto) Lymph % (Auto) Lymph # (Auto) Abs Immat Gran (auto) Absolute Neuts (auto) Absolute Nucleated RBC Nucleated RBC % (auto) Neutrophils % (Manual) Band Neutrophils % Lymphocytes % (Manual) Monocytes % (Manual) Abs Neuts (Manual) Lymphocytes # (Manual) Monocytes # (Manual) ESR PT INR APTT VBG pH VBG HCO3 Sodium Chloride Carbon Dioxide Anion Gap BUN Creatinine POC Glucose 189 H 172 H 167 H Random Glucose Lactic Acid Lactic Acid F/U @ 2Hr Lactic Acid F/U @ 4Hr Calcium Phosphorus Magnesium TIBC Ferritin Total Bilirubin Direct Bilirubin AST ALT Alkaline Phosphatase Ammonia Troponin I High Sens C-Reactive Protein B-Natriuretic Peptide Total Protein Albumin Lipase Vitamin B1 Ur Specific [place] Random Vancomycin 08/11/21 08/11/21 08/11/21 00:00 00:00 01:50 WBC 19.3 H RBC 4.04 L Hgb 12.1 L Hct 35.4 L Plt Count 82 L D MPV 13.2 H Immature Gran % (Auto) Neut % (Auto) Lymph % (Auto) Lymph # (Auto) Abs Immat Gran (auto) Absolute Neuts (auto) Absolute Nucleated RBC 0.120 H Nucleated RBC % (auto) 0.6 H Neutrophils % (Manual) Band Neutrophils % 9 H Lymphocytes % (Manual) 9 L Monocytes % (Manual) 12 H Abs Neuts (Manual) 15.2 H Lymphocytes # (Manual) Monocytes # (Manual) 2.3 H ESR PT INR APTT VBG pH VBG HCO3 Sodium Chloride Carbon Dioxide Anion Gap BUN Creatinine POC Glucose Random Glucose Lactic Acid 5.4 H* Lactic Acid F/U @ 2Hr Lactic Acid F/U @ 4Hr Calcium Phosphorus Magnesium TIBC Ferritin Total Bilirubin Direct Bilirubin AST ALT Alkaline Phosphatase Ammonia Troponin I High Sens 60.5 H D C-Reactive Protein B-Natriuretic Peptide Total Protein Albumin Lipase Vitamin B1 Ur Specific [place] Random Vancomycin 08/11/21 08/11/21 08/11/21 04:25 04:25 04:25 WBC 16.8 H RBC 3.69 L Hgb 11.0 L Hct 32.8 L Plt Count 82 L MPV 13.5 H Immature Gran % (Auto) Neut % (Auto) Lymph % (Auto) Lymph # (Auto) Abs Immat Gran (auto) Absolute Neuts (auto) Absolute Nucleated RBC 0.080 H Nucleated RBC % (auto) 0.5 H Neutrophils % (Manual) Band Neutrophils % Lymphocytes % (Manual) Monocytes % (Manual) Abs Neuts (Manual) Lymphocytes # (Manual) Monocytes # (Manual) ESR PT INR APTT VBG pH VBG HCO3 Sodium 131 L Chloride Carbon Dioxide 16 L Anion Gap BUN 98 H Creatinine 2.39 H POC Glucose Random Glucose Lactic Acid 2.9 H* Lactic Acid F/U @ 2Hr Lactic Acid F/U @ 4Hr Calcium 7.5 L D Phosphorus Magnesium TIBC Ferritin Total Bilirubin 1.9 H Direct Bilirubin 1.2 H AST 134 H ALT 59 H Alkaline Phosphatase Ammonia Troponin I High Sens C-Reactive Protein 32.45 H B-Natriuretic Peptide Total Protein 6.0 L Albumin 2.3 L Lipase Vitamin B1 Ur Specific [place] Random Vancomycin 08/11/21 08/11/21 08/11/21 06:32 07:30 07:30 WBC RBC Hgb Hct Plt Count MPV Immature Gran % (Auto) Neut % (Auto) Lymph % (Auto) Lymph # (Auto) Abs Immat Gran (auto) Absolute Neuts (auto) Absolute Nucleated RBC Nucleated RBC % (auto) Neutrophils % (Manual) Band Neutrophils % Lymphocytes % (Manual) Monocytes % (Manual) Abs Neuts (Manual) Lymphocytes # (Manual) Monocytes # (Manual) ESR PT INR APTT VBG pH VBG HCO3 Sodium Chloride Carbon Dioxide Anion Gap BUN Creatinine POC Glucose Random Glucose Lactic Acid Lactic Acid F/U @ 2Hr 2.7 H* Lactic Acid F/U @ 4Hr Calcium Phosphorus Magnesium TIBC Ferritin Total Bilirubin Direct Bilirubin AST ALT Alkaline Phosphatase Ammonia Troponin I High Sens 52.7 H C-Reactive Protein B-Natriuretic Peptide Total Protein Albumin Lipase Vitamin B1 Ur Specific [place] >= 1.030 H Random Vancomycin 08/11/21 08/11/21 08/11/21 09:59 09:59 16:13 WBC 17.0 H RBC 3.81 L Hgb 11.4 L Hct 33.4 L Plt Count 77 L MPV 14.2 H Immature Gran % (Auto) Neut % (Auto) Lymph % (Auto) Lymph # (Auto) Abs Immat Gran (auto) Absolute Neuts (auto) Absolute Nucleated RBC 0.130 H Nucleated RBC % (auto) 0.8 H Neutrophils % (Manual) Band Neutrophils % Lymphocytes % (Manual) Monocytes % (Manual) Abs Neuts (Manual) Lymphocytes # (Manual) Monocytes # (Manual) ESR PT INR APTT VBG pH VBG HCO3 Sodium Chloride Carbon Dioxide Anion Gap BUN Creatinine POC Glucose Random Glucose Lactic Acid Lactic Acid F/U @ 2Hr Lactic Acid F/U @ 4Hr 2.5 H* Calcium Phosphorus Magnesium TIBC Ferritin Total Bilirubin Direct Bilirubin AST ALT Alkaline Phosphatase Ammonia Troponin I High Sens C-Reactive Protein B-Natriuretic Peptide Total Protein Albumin Lipase Vitamin B1 <6 L Ur Specific [place] Random Vancomycin 08/11/21 08/11/21 08/11/21 16:13 16:16 16:19 WBC RBC Hgb Hct Plt Count MPV Immature Gran % (Auto) Neut % (Auto) Lymph % (Auto) Lymph # (Auto) Abs Immat Gran (auto) Absolute Neuts (auto) Absolute Nucleated RBC Nucleated RBC % (auto) Neutrophils % (Manual) Band Neutrophils % Lymphocytes % (Manual) Monocytes % (Manual) Abs Neuts (Manual) Lymphocytes # (Manual) Monocytes # (Manual) ESR PT INR APTT VBG pH VBG HCO3 15 L Sodium 130 L Chloride Carbon Dioxide 16 L Anion Gap BUN 74 H Creatinine 2.22 H POC Glucose 144 H Random Glucose 139 H D Lactic Acid Lactic Acid F/U @ 2Hr Lactic Acid F/U @ 4Hr Calcium 7.6 L Phosphorus Magnesium TIBC Ferritin Total Bilirubin Direct Bilirubin AST ALT Alkaline Phosphatase Ammonia Troponin I High Sens C-Reactive Protein B-Natriuretic Peptide Total Protein Albumin Lipase Vitamin B1 Ur Specific [place] Random Vancomycin 08/11/21 08/12/21 08/12/21 19:47 06:07 06:07 WBC 18.5 H RBC 3.88 L Hgb 11.6 L Hct 34.1 L Plt Count 87 L MPV Immature Gran % (Auto) Neut % (Auto) Lymph % (Auto) Lymph # (Auto) Abs Immat Gran (auto) Absolute Neuts (auto) Absolute Nucleated RBC 0.200 H Nucleated RBC % (auto) 1.1 H Neutrophils % (Manual) Band Neutrophils % Lymphocytes % (Manual) Monocytes % (Manual) Abs Neuts (Manual) Lymphocytes # (Manual) Monocytes # (Manual) ESR PT INR APTT VBG pH VBG HCO3 Sodium Chloride Carbon Dioxide Anion Gap BUN Creatinine POC Glucose 140 H Random Glucose Lactic Acid Lactic Acid F/U @ 2Hr Lactic Acid F/U @ 4Hr Calcium Phosphorus Magnesium TIBC Ferritin Total Bilirubin Direct Bilirubin AST ALT Alkaline Phosphatase Ammonia Troponin I High Sens C-Reactive Protein B-Natriuretic Peptide Total Protein Albumin Lipase Vitamin B1 Ur Specific [place] Random Vancomycin 14.3 L 08/12/21 08/12/21 08/12/21 06:07 06:07 18:59 WBC 25.1 H RBC 3.83 L Hgb 11.3 L Hct 33.6 L Plt Count 73 L MPV Immature Gran % (Auto) Neut % (Auto) Lymph % (Auto) Lymph # (Auto) Abs Immat Gran (auto) Absolute Neuts (auto) Absolute Nucleated RBC 0.350 H Nucleated RBC % (auto) 1.4 H Neutrophils % (Manual) Band Neutrophils % Lymphocytes % (Manual) Monocytes % (Manual) Abs Neuts (Manual) Lymphocytes # (Manual) Monocytes # (Manual) ESR PT 27.7 H INR 2.4 H APTT VBG pH VBG HCO3 Sodium 131 L Chloride Carbon Dioxide 16 L Anion Gap BUN 113 H D Creatinine 2.28 H POC Glucose Random Glucose Lactic Acid Lactic Acid F/U @ 2Hr Lactic Acid F/U @ 4Hr Calcium 7.1 L D Phosphorus Magnesium TIBC Ferritin Total Bilirubin 2.0 H Direct Bilirubin AST 150 H ALT 66 H Alkaline Phosphatase 123 H D Ammonia Troponin I High Sens C-Reactive Protein B-Natriuretic Peptide Total Protein 6.3 L Albumin 2.3 L Lipase Vitamin B1 Ur Specific [place] Random Vancomycin 08/13/21 08/13/21 08/13/21 08:09 08:09 08:09 WBC 25.9 H RBC 3.84 L Hgb 11.4 L Hct 33.4 L Plt Count 72 L MPV 13.8 H Immature Gran % (Auto) Neut % (Auto) Lymph % (Auto) Lymph # (Auto) Abs Immat Gran (auto) Absolute Neuts (auto) Absolute Nucleated RBC 0.220 H Nucleated RBC % (auto) 0.8 H Neutrophils % (Manual) Band Neutrophils % Lymphocytes % (Manual) Monocytes % (Manual) Abs Neuts (Manual) Lymphocytes # (Manual) Monocytes # (Manual) ESR PT 25.4 H INR 2.2 H APTT VBG pH VBG HCO3 Sodium 133 L Chloride Carbon Dioxide 13 L Anion Gap BUN 121 H Creatinine 2.50 H POC Glucose Random Glucose Lactic Acid Lactic Acid F/U @ 2Hr Lactic Acid F/U @ 4Hr Calcium 7.1 L Phosphorus Magnesium TIBC 163 L Ferritin 1412 H Total Bilirubin 1.9 H Direct Bilirubin AST 139 H ALT 64 H Alkaline Phosphatase 179 H D Ammonia Troponin I High Sens C-Reactive Protein B-Natriuretic Peptide Total Protein Albumin 2.2 L Lipase Vitamin B1 Ur Specific [place] Random Vancomycin 08/13/21 08/13/21 08/13/21 08:09 15:25 19:33 WBC RBC Hgb Hct Plt Count MPV Immature Gran % (Auto) Neut % (Auto) Lymph % (Auto) Lymph # (Auto) Abs Immat Gran (auto) Absolute Neuts (auto) Absolute Nucleated RBC Nucleated RBC % (auto) Neutrophils % (Manual) Band Neutrophils % Lymphocytes % (Manual) Monocytes % (Manual) Abs Neuts (Manual) Lymphocytes # (Manual) Monocytes # (Manual) ESR PT INR APTT VBG pH VBG HCO3 Sodium 133 L Chloride Carbon Dioxide 13 L Anion Gap BUN 121 H Creatinine 2.42 H POC Glucose 149 H 214 H Random Glucose Lactic Acid Lactic Acid F/U @ 2Hr Lactic Acid F/U @ 4Hr Calcium 7.1 L Phosphorus Magnesium TIBC Ferritin Total Bilirubin Direct Bilirubin AST ALT Alkaline Phosphatase Ammonia Troponin I High Sens C-Reactive Protein B-Natriuretic Peptide Total Protein Albumin Lipase Vitamin B1 Ur Specific [place] Random Vancomycin 08/14/21 08/14/21 08/14/21 07:16 07:16 07:16 WBC 27.4 H RBC 3.51 L Hgb 10.3 L Hct 30.3 L Plt Count 53 L D MPV 13.7 H Immature Gran % (Auto) Neut % (Auto) Lymph % (Auto) Lymph # (Auto) Abs Immat Gran (auto) Absolute Neuts (auto) Absolute Nucleated RBC 0.110 H Nucleated RBC % (auto) 0.4 H Neutrophils % (Manual) Band Neutrophils % Lymphocytes % (Manual) Monocytes % (Manual) Abs Neuts (Manual) Lymphocytes # (Manual) Monocytes # (Manual) ESR PT 25.8 H INR 2.2 H APTT VBG pH VBG HCO3 Sodium 134 L Chloride Carbon Dioxide 14 L Anion Gap BUN 131 H Creatinine 2.44 H POC Glucose Random Glucose 303 H D Lactic Acid Lactic Acid F/U @ 2Hr Lactic Acid F/U @ 4Hr Calcium 7.3 L Phosphorus Magnesium TIBC Ferritin Total Bilirubin 2.1 H Direct Bilirubin AST 91 H ALT 49 H Alkaline Phosphatase 165 H Ammonia Troponin I High Sens C-Reactive Protein B-Natriuretic Peptide Total Protein Albumin 2.8 L D Lipase Vitamin B1 Ur Specific [place] Random Vancomycin 08/14/21 08/14/21 08/14/21 07:46 11:23 13:10 WBC RBC Hgb Hct Plt Count MPV Immature Gran % (Auto) Neut % (Auto) Lymph % (Auto) Lymph # (Auto) Abs Immat Gran (auto) Absolute Neuts (auto) Absolute Nucleated RBC Nucleated RBC % (auto) Neutrophils % (Manual) Band Neutrophils % Lymphocytes % (Manual) Monocytes % (Manual) Abs Neuts (Manual) Lymphocytes # (Manual) Monocytes # (Manual) ESR PT INR APTT VBG pH VBG HCO3 Sodium Chloride Carbon Dioxide Anion Gap BUN Creatinine POC Glucose 293 H 247 H 262 H Random Glucose Lactic Acid Lactic Acid F/U @ 2Hr Lactic Acid F/U @ 4Hr Calcium Phosphorus Magnesium TIBC Ferritin Total Bilirubin Direct Bilirubin AST ALT Alkaline Phosphatase Ammonia Troponin I High Sens C-Reactive Protein B-Natriuretic Peptide Total Protein Albumin Lipase Vitamin B1 Ur Specific [place] Random Vancomycin 08/14/21 08/14/21 08/14/21 14:52 14:59 15:46 WBC RBC Hgb Hct Plt Count MPV Immature Gran % (Auto) Neut % (Auto) Lymph % (Auto) Lymph # (Auto) Abs Immat Gran (auto) Absolute Neuts (auto) Absolute Nucleated RBC Nucleated RBC % (auto) Neutrophils % (Manual) Band Neutrophils % Lymphocytes % (Manual) Monocytes % (Manual) Abs Neuts (Manual) Lymphocytes # (Manual) Monocytes # (Manual) ESR PT INR APTT VBG pH 7.23 L VBG HCO3 15 L Sodium Chloride Carbon Dioxide Anion Gap BUN Creatinine POC Glucose 193 H Random Glucose Lactic Acid Lactic Acid F/U @ 2Hr Lactic Acid F/U @ 4Hr Calcium Phosphorus Magnesium TIBC Ferritin Total Bilirubin Direct Bilirubin AST ALT Alkaline Phosphatase Ammonia 109 H Troponin I High Sens C-Reactive Protein B-Natriuretic Peptide Total Protein Albumin Lipase Vitamin B1 Ur Specific [place] Random Vancomycin 08/14/21 08/14/21 08/14/21 17:04 20:02 22:16 WBC 28.0 H RBC 3.53 L Hgb 10.6 L Hct 30.9 L Plt Count 45 L MPV 12.5 H Immature Gran % (Auto) Neut % (Auto) Lymph % (Auto) Lymph # (Auto) Abs Immat Gran (auto) Absolute Neuts (auto) Absolute Nucleated RBC 0.220 H Nucleated RBC % (auto) 0.8 H Neutrophils % (Manual) 91 H Band Neutrophils % Lymphocytes % (Manual) 1 L Monocytes % (Manual) Abs Neuts (Manual) 26.3 H Lymphocytes # (Manual) 0.3 L Monocytes # (Manual) ESR PT INR APTT VBG pH VBG HCO3 Sodium Chloride Carbon Dioxide Anion Gap BUN Creatinine POC Glucose 161 H 118 H Random Glucose Lactic Acid Lactic Acid F/U @ 2Hr Lactic Acid F/U @ 4Hr Calcium Phosphorus Magnesium TIBC Ferritin Total Bilirubin Direct Bilirubin AST ALT Alkaline Phosphatase Ammonia Troponin I High Sens C-Reactive Protein B-Natriuretic Peptide Total Protein Albumin Lipase Vitamin B1 Ur Specific [place] Random Vancomycin 08/14/21 08/14/21 08/14/21 22:16 22:16 22:24 WBC RBC Hgb Hct Plt Count MPV Immature Gran % (Auto) Neut % (Auto) Lymph % (Auto) Lymph # (Auto) Abs Immat Gran (auto) Absolute Neuts (auto) Absolute Nucleated RBC Nucleated RBC % (auto) Neutrophils % (Manual) Band Neutrophils % Lymphocytes % (Manual) Monocytes % (Manual) Abs Neuts (Manual) Lymphocytes # (Manual) Monocytes # (Manual) ESR PT INR APTT VBG pH 7.26 L VBG HCO3 18 L Sodium Chloride Carbon Dioxide 19 L Anion Gap BUN 142 H Creatinine 2.59 H POC Glucose Random Glucose Lactic Acid Lactic Acid F/U @ 2Hr Lactic Acid F/U @ 4Hr Calcium 7.2 L Phosphorus Magnesium TIBC Ferritin Total Bilirubin 2.9 H Direct Bilirubin AST 84 H ALT Alkaline Phosphatase 169 H Ammonia Troponin I High Sens C-Reactive Protein B-Natriuretic Peptide 809 H Total Protein Albumin 2.7 L Lipase Vitamin B1 Ur Specific [place] Random Vancomycin 08/15/21 08/15/21 08/15/21 05:25 05:25 05:25 WBC 24.3 H RBC 3.17 L Hgb 9.4 L Hct 27.8 L Plt Count 74 L D MPV Immature Gran % (Auto) Neut % (Auto) Lymph % (Auto) Lymph # (Auto) Abs Immat Gran (auto) Absolute Neuts (auto) Absolute Nucleated RBC 0.190 H Nucleated RBC % (auto) 0.8 H Neutrophils % (Manual) Band Neutrophils % Lymphocytes % (Manual) Monocytes % (Manual) Abs Neuts (Manual) Lymphocytes # (Manual) Monocytes # (Manual) ESR PT INR APTT VBG pH VBG HCO3 Sodium Chloride Carbon Dioxide 20 L Anion Gap BUN 143 H Creatinine 2.62 H POC Glucose Random Glucose 162 H D Lactic Acid Lactic Acid F/U @ 2Hr Lactic Acid F/U @ 4Hr Calcium 7.1 L Phosphorus 8.0 H Magnesium 2.8 H TIBC Ferritin Total Bilirubin 3.4 H Direct Bilirubin AST 73 H ALT Alkaline Phosphatase 148 H Ammonia 123 H Troponin I High Sens C-Reactive Protein B-Natriuretic Peptide Total Protein Albumin 2.3 L Lipase Vitamin B1 Ur Specific [place] Random Vancomycin 08/15/21 08/15/21 08/15/21 05:25 05:25 05:28 WBC RBC Hgb Hct Plt Count MPV Immature Gran % (Auto) Neut % (Auto) Lymph % (Auto) Lymph # (Auto) Abs Immat Gran (auto) Absolute Neuts (auto) Absolute Nucleated RBC Nucleated RBC % (auto) Neutrophils % (Manual) Band Neutrophils % Lymphocytes % (Manual) Monocytes % (Manual) Abs Neuts (Manual) Lymphocytes # (Manual) Monocytes # (Manual) ESR PT 21.4 H INR 1.9 H APTT VBG pH VBG HCO3 18 L Sodium Chloride Carbon Dioxide Anion Gap BUN Creatinine POC Glucose Random Glucose Lactic Acid Lactic Acid F/U @ 2Hr Lactic Acid F/U @ 4Hr Calcium Phosphorus Magnesium TIBC Ferritin Total Bilirubin Direct Bilirubin AST ALT Alkaline Phosphatase Ammonia Troponin I High Sens C-Reactive Protein B-Natriuretic Peptide 675 H Total Protein Albumin Lipase Vitamin B1 Ur Specific [place] Random Vancomycin 08/15/21 08/15/21 08/15/21 06:14 12:42 16:38 WBC RBC Hgb Hct Plt Count MPV Immature Gran % (Auto) Neut % (Auto) Lymph % (Auto) Lymph # (Auto) Abs Immat Gran (auto) Absolute Neuts (auto) Absolute Nucleated RBC Nucleated RBC % (auto) Neutrophils % (Manual) Band Neutrophils % Lymphocytes % (Manual) Monocytes % (Manual) Abs Neuts (Manual) Lymphocytes # (Manual) Monocytes # (Manual) ESR PT INR APTT VBG pH VBG HCO3 Sodium Chloride Carbon Dioxide Anion Gap BUN Creatinine POC Glucose 144 H 171 H 151 H Random Glucose Lactic Acid Lactic Acid F/U @ 2Hr Lactic Acid F/U @ 4Hr Calcium Phosphorus Magnesium TIBC Ferritin Total Bilirubin Direct Bilirubin AST ALT Alkaline Phosphatase Ammonia Troponin I High Sens C-Reactive Protein B-Natriuretic Peptide Total Protein Albumin Lipase Vitamin B1 Ur Specific [place] Random Vancomycin 08/15/21 08/15/21 08/16/21 18:57 23:37 05:25 WBC 17.8 H RBC 3.39 L Hgb 10.2 L Hct 29.3 L Plt Count 34 L D MPV Immature Gran % (Auto) Neut % (Auto) Lymph % (Auto) Lymph # (Auto) Abs Immat Gran (auto) Absolute Neuts (auto) Absolute Nucleated RBC 0.150 H Nucleated RBC % (auto) 0.8 H Neutrophils % (Manual) Band Neutrophils % Lymphocytes % (Manual) Monocytes % (Manual) Abs Neuts (Manual) Lymphocytes # (Manual) Monocytes # (Manual) ESR PT INR APTT VBG pH VBG HCO3 Sodium Chloride Carbon Dioxide Anion Gap BUN Creatinine POC Glucose 153 H 117 H Random Glucose Lactic Acid Lactic Acid F/U @ 2Hr Lactic Acid F/U @ 4Hr Calcium Phosphorus Magnesium TIBC Ferritin Total Bilirubin Direct Bilirubin AST ALT Alkaline Phosphatase Ammonia Troponin I High Sens C-Reactive Protein B-Natriuretic Peptide Total Protein Albumin Lipase Vitamin B1 Ur Specific [place] Random Vancomycin 08/16/21 08/16/21 08/16/21 05:25 05:25 05:30 WBC RBC Hgb Hct Plt Count MPV Immature Gran % (Auto) Neut % (Auto) Lymph % (Auto) Lymph # (Auto) Abs Immat Gran (auto) Absolute Neuts (auto) Absolute Nucleated RBC Nucleated RBC % (auto) Neutrophils % (Manual) Band Neutrophils % Lymphocytes % (Manual) Monocytes % (Manual) Abs Neuts (Manual) Lymphocytes # (Manual) Monocytes # (Manual) ESR PT 19.6 H INR 1.7 H APTT VBG pH VBG HCO3 21 L Sodium Chloride 109 H Carbon Dioxide Anion Gap BUN 140 H Creatinine 2.52 H POC Glucose Random Glucose 141 H Lactic Acid Lactic Acid F/U @ 2Hr Lactic Acid F/U @ 4Hr Calcium 7.1 L Phosphorus 6.6 H Magnesium TIBC Ferritin Total Bilirubin 3.1 H Direct Bilirubin AST 78 H ALT Alkaline Phosphatase 144 H Ammonia Troponin I High Sens C-Reactive Protein B-Natriuretic Peptide Total Protein Albumin 2.2 L Lipase Vitamin B1 Ur Specific [place] Random Vancomycin 08/16/21 08/17/21 08/17/21 07:59 00:56 05:40 WBC RBC Hgb Hct Plt Count MPV Immature Gran % (Auto) Neut % (Auto) Lymph % (Auto) Lymph # (Auto) Abs Immat Gran (auto) Absolute Neuts (auto) Absolute Nucleated RBC Nucleated RBC % (auto) Neutrophils % (Manual) Band Neutrophils % Lymphocytes % (Manual) Monocytes % (Manual) Abs Neuts (Manual) Lymphocytes # (Manual) Monocytes # (Manual) ESR PT 21.2 H INR 1.8 H APTT VBG pH VBG HCO3 Sodium Chloride Carbon Dioxide Anion Gap BUN Creatinine POC Glucose 154 H Random Glucose Lactic Acid Lactic Acid F/U @ 2Hr Lactic Acid F/U @ 4Hr Calcium Phosphorus Magnesium TIBC Ferritin Total Bilirubin Direct Bilirubin AST ALT Alkaline Phosphatase Ammonia 60 H Troponin I High Sens C-Reactive Protein B-Natriuretic Peptide Total Protein Albumin Lipase Vitamin B1 Ur Specific [place] Random Vancomycin 08/17/21 08/17/21 08/17/21 05:40 05:40 05:40 WBC 16.6 H RBC 2.58 L D Hgb 7.7 L D Hct 22.9 L D Plt Count 20 L* MPV Immature Gran % (Auto) Neut % (Auto) Lymph % (Auto) Lymph # (Auto) Abs Immat Gran (auto) Absolute Neuts (auto) Absolute Nucleated RBC 0.070 H Nucleated RBC % (auto) 0.4 H Neutrophils % (Manual) Band Neutrophils % Lymphocytes % (Manual) Monocytes % (Manual) Abs Neuts (Manual) Lymphocytes # (Manual) Monocytes # (Manual) ESR PT INR APTT VBG pH VBG HCO3 20 L Sodium 148 H Chloride 112 H Carbon Dioxide 20 L Anion Gap BUN 132 H Creatinine 2.75 H POC Glucose Random Glucose 227 H D Lactic Acid Lactic Acid F/U @ 2Hr Lactic Acid F/U @ 4Hr Calcium 7.7 L D Phosphorus 7.0 H Magnesium TIBC Ferritin Total Bilirubin 4.0 H Direct Bilirubin AST 57 H ALT Alkaline Phosphatase Ammonia Troponin I High Sens C-Reactive Protein B-Natriuretic Peptide Total Protein Albumin 3.2 L D Lipase Vitamin B1 Ur Specific [place] Random Vancomycin 08/17/21 08/17/21 08/17/21 05:45 12:57 17:50 WBC RBC Hgb Hct Plt Count MPV Immature Gran % (Auto) Neut % (Auto) Lymph % (Auto) Lymph # (Auto) Abs Immat Gran (auto) Absolute Neuts (auto) Absolute Nucleated RBC Nucleated RBC % (auto) Neutrophils % (Manual) Band Neutrophils % Lymphocytes % (Manual) Monocytes % (Manual) Abs Neuts (Manual) Lymphocytes # (Manual) Monocytes # (Manual) ESR PT INR APTT VBG pH VBG HCO3 Sodium Chloride Carbon Dioxide Anion Gap BUN Creatinine POC Glucose 193 H 236 H 262 H Random Glucose Lactic Acid Lactic Acid F/U @ 2Hr Lactic Acid F/U @ 4Hr Calcium Phosphorus Magnesium TIBC Ferritin Total Bilirubin Direct Bilirubin AST ALT Alkaline Phosphatase Ammonia Troponin I High Sens C-Reactive Protein B-Natriuretic Peptide Total Protein Albumin Lipase Vitamin B1 Ur Specific [place] Random Vancomycin 08/17/21 08/18/21 08/18/21 19:30 00:13 05:08 WBC 16.4 H 17.2 H RBC 2.56 L 2.55 L Hgb 7.6 L 7.5 L Hct 22.8 L 23.0 L Plt Count 50 L D 46 L MPV Immature Gran % (Auto) 1.2 H Neut % (Auto) 90.5 H Lymph % (Auto) 5.3 L Lymph # (Auto) 0.9 L Abs Immat Gran (auto) 0.21 H Absolute Neuts (auto) 15.6 H Absolute Nucleated RBC 0.030 H 0.050 H Nucleated RBC % (auto) 0.3 H Neutrophils % (Manual) Band Neutrophils % Lymphocytes % (Manual) Monocytes % (Manual) Abs Neuts (Manual) Lymphocytes # (Manual) Monocytes # (Manual) ESR PT INR APTT VBG pH VBG HCO3 Sodium Chloride Carbon Dioxide Anion Gap BUN Creatinine POC Glucose 266 H Random Glucose Lactic Acid Lactic Acid F/U @ 2Hr Lactic Acid F/U @ 4Hr Calcium Phosphorus Magnesium TIBC Ferritin Total Bilirubin Direct Bilirubin AST ALT Alkaline Phosphatase Ammonia Troponin I High Sens C-Reactive Protein B-Natriuretic Peptide Total Protein Albumin Lipase Vitamin B1 Ur Specific [place] Random Vancomycin 08/18/21 08/18/21 08/18/21 05:08 05:27 08:48 WBC RBC Hgb Hct Plt Count MPV Immature Gran % (Auto) Neut % (Auto) Lymph % (Auto) Lymph # (Auto) Abs Immat Gran (auto) Absolute Neuts (auto) Absolute Nucleated RBC Nucleated RBC % (auto) Neutrophils % (Manual) Band Neutrophils % Lymphocytes % (Manual) Monocytes % (Manual) Abs Neuts (Manual) Lymphocytes # (Manual) Monocytes # (Manual) ESR 109 H PT INR APTT VBG pH VBG HCO3 Sodium 150 H Chloride 114 H Carbon Dioxide 21 L Anion Gap BUN 124 H Creatinine 1.57 H POC Glucose 268 H Random Glucose 328 H D Lactic Acid Lactic Acid F/U @ 2Hr Lactic Acid F/U @ 4Hr Calcium 7.8 L Phosphorus 7.4 H Magnesium TIBC Ferritin Total Bilirubin 2.5 H Direct Bilirubin AST 48 H ALT Alkaline Phosphatase Ammonia Troponin I High Sens C-Reactive Protein B-Natriuretic Peptide Total Protein Albumin 2.7 L Lipase Vitamin B1 Ur Specific [place] Random Vancomycin 08/18/21 08/18/21 09:05 11:53 WBC RBC Hgb Hct Plt Count MPV Immature Gran % (Auto) Neut % (Auto) Lymph % (Auto) Lymph # (Auto) Abs Immat Gran (auto) Absolute Neuts (auto) Absolute Nucleated RBC Nucleated RBC % (auto) Neutrophils % (Manual) Band Neutrophils % Lymphocytes % (Manual) Monocytes % (Manual) Abs Neuts (Manual) Lymphocytes # (Manual) Monocytes # (Manual) ESR PT 18.6 H INR 1.6 H APTT 40.7 H D VBG pH VBG HCO3 Sodium Chloride Carbon Dioxide Anion Gap BUN Creatinine POC Glucose 262 H Random Glucose Lactic Acid Lactic Acid F/U @ 2Hr Lactic Acid F/U @ 4Hr Calcium Phosphorus Magnesium TIBC Ferritin Total Bilirubin Direct Bilirubin AST ALT Alkaline Phosphatase Ammonia Troponin I High Sens C-Reactive Protein B-Natriuretic Peptide Total Protein Albumin Lipase Vitamin B1 Ur Specific [place] Random Vancomycin Microbiology: Microbiology 08/15/21 05:22 Blood - Venous Blood Culture - Final Staphylococcus aureus 08/15/21 05:22 Blood - Venous Blood Culture - Final Staphylococcus aureus 08/17/21 05:48 Blood - Venous Blood Culture - Preliminary No growth after 24 hours. 08/17/21 05:48 Blood - Venous Blood Culture - Preliminary No growth after 24 hours. 08/14/21 23:17 Sputum - Induced Gram Stain - Final 08/14/21 23:17 Sputum - Induced Sputum Culture - Final 08/13/21 08:09 Blood - Venous Blood Culture - Final Staphylococcus aureus 08/13/21 08:09 Blood - Venous Blood Culture - Final Staphylococcus aureus 08/11/21 01:50 Blood - Venous Blood Culture - Final Staphylococcus aureus 08/11/21 01:50 Blood - Venous Blood Culture - Final Staphylococcus aureus Assessment and Plan (1) Hemoptysis: Status: Acute (2) Pneumonia: Status: Acute (3) Thrombocytopenia: Status: Acute (4) MSSA bacteremia: Status: Acute Plan Plan for bronchoscopy with bronchoalveolar lavage to rule out diffuse alveolar hemorrhage. Also will obtain deep cultures to further address the airspace disease. th. Currently scheduled for 08:00 o'clock in the morning on August 19. Please get the patient's TF off from midnight. Awaiting blood work that was already stab list Antibiotics as per Infectious Disease Procedures Date of Service Date of Service: 08/18/21
--- NOTE | 2021-08-18 13:34 | P.PNCC_ITS ---
Subjective Subjective Date of Service: 08/18/21 Interval History: 66-year-old man presented with several falls and pain across the back of his shoulders and he is known to be an alcoholic but without a withdrawal history and developed altered mental status with agitation blood testing showed on repeated blood cultures x5 methicillin sensitive Staph aureus bacteremia and then increasing shortness of breath CT scan showing extensive bilateral multilobar infiltrates along with anemia thrombocytopenia and then on might examination today he has a diffuse palpable purpura including the soles of his feet and on endotracheal suctioning he has in a clear-cut hemorrhagic secretions boot with a negative urinalysis so I do not think that there is a combined respiratory and renal issue but nonetheless a vasculitic process must be considered and in the meanwhile I was concerned because he initially received nafcillin and now cefazolin and I was worried that this could 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 so I Genaro heard yet from Infectious Disease about changing his drug while we wait but on getting full-thickness skin biopsy and I am also getting a bronchoscopy with BAL Stable FiO2 at 45% with oxygen saturations of 93% no significant respiratory effort well sedated and on minimal pressor support Critical Care Time (minutes): 60 Physical Exam Vital Signs: Vital Signs: Last Vital Signs Temp 97.7 F 08/18/21 12:00 Pulse 114 H 08/18/21 13:00 Resp 13 08/18/21 13:00 BP 120/55 L 08/18/21 13:27 Pulse Ox 91 L 08/18/21 13:00 O2 Del Method 08/18/21 13:00 O2 Flow Rate 55 08/14/21 22:00 FiO2 45 08/18/21 13:00 BMI result Body Mass Index 34.4 Will sedated apparently with significant calm and no dyssynchrony with the ventilator but he does sensed the presence in the room Cardiovascular by bedside echo consistent with class 1 LV function and GIL was negative for endocarditis Lungs without adventitious sounds Abdomen is benign doing well with feedings good bowel sounds no organomegaly Skin with the diffuse purpuric lesions as mentioned Objective Data Labs CBC & Chem 7: 08/18/21 05:08 08/18/21 05:08 Labs: Laboratory Results - last 24 hr 08/13/21 08/13/21 08/14/21 08:09 08:09 23:33 WBC RBC Hgb Hct MCV MCH MCHC RDW Plt Count MPV Immature Gran % (Auto) Neut % (Auto) Lymph % (Auto) [place] % (Auto) Eos % (Auto) Baso % (Auto) Lymph # (Auto) [place] # (Auto) Eos # (Auto) Baso # (Auto) Abs Immat Gran (auto) Absolute Neuts (auto) Absolute Nucleated RBC Nucleated RBC % (auto) Smear Tech's Comments ESR PT INR APTT Fibrinogen VBG pH VBG pCO2 VBG pO2 VBG HCO3 VBG O2 Saturation VBG Base Excess Sodium Potassium Chloride Carbon Dioxide Anion Gap BUN Creatinine Estim Creat Clear Calc Estimated GFR POC Glucose Random Glucose Calcium Phosphorus Total Bilirubin AST ALT Alkaline Phosphatase Ammonia Total Protein Albumin Rheumatoid Factor ZAYDA Titer TNP ZAYDA Titer 2 TNP ZAYDA Titer 3 TNP ZAYDA Pattern TNP ZAYDA Pattern 2 TNP ZAYDA Pattern 3 TNP Anti-Mitochondrial Ab NEGATIVE Blood Type A Positive Antibody Screen NEGATIVE 08/17/21 08/17/21 08/18/21 17:50 19:30 00:13 WBC 16.4 H RBC 2.56 L Hgb 7.6 L Hct 22.8 L MCV 89.1 MCH 29.7 MCHC 33.3 RDW 15.6 Plt Count 50 L D MPV 11.5 Immature Gran % (Auto) Neut % (Auto) Lymph % (Auto) [place] % (Auto) Eos % (Auto) Baso % (Auto) Lymph # (Auto) [place] # (Auto) Eos # (Auto) Baso # (Auto) Abs Immat Gran (auto) Absolute Neuts (auto) Absolute Nucleated RBC 0.030 H Nucleated RBC % (auto) 0.2 Smear Tech's Comments ESR PT INR APTT Fibrinogen VBG pH VBG pCO2 VBG pO2 VBG HCO3 VBG O2 Saturation VBG Base Excess Sodium Potassium Chloride Carbon Dioxide Anion Gap BUN Creatinine Estim Creat Clear Calc Estimated GFR POC Glucose 262 H 266 H Random Glucose Calcium Phosphorus Total Bilirubin AST ALT Alkaline Phosphatase Ammonia Total Protein Albumin Rheumatoid Factor ZAYDA Titer ZAYDA Titer 2 ZAYDA Titer 3 ZAYDA Pattern ZAYDA Pattern 2 ZAYDA Pattern 3 Anti-Mitochondrial Ab Blood Type Antibody Screen 08/18/21 08/18/21 08/18/21 05:08 05:08 05:08 WBC 17.2 H RBC 2.55 L Hgb 7.5 L Hct 23.0 L MCV 90.2 MCH 29.4 MCHC 32.6 RDW 15.9 Plt Count 46 L MPV 12.3 Immature Gran % (Auto) 1.2 H Neut % (Auto) 90.5 H Lymph % (Auto) 5.3 L [place] % (Auto) 2.7 Eos % (Auto) 0.2 Baso % (Auto) 0.1 Lymph # (Auto) 0.9 L [place] # (Auto) 0.5 Eos # (Auto) 0.0 Baso # (Auto) 0.0 Abs Immat Gran (auto) 0.21 H Absolute Neuts (auto) 15.6 H Absolute Nucleated RBC 0.050 H Nucleated RBC % (auto) 0.3 H Smear Tech's Comments VERIFIED ESR PT INR APTT Fibrinogen VBG pH VBG pCO2 VBG pO2 VBG HCO3 VBG O2 Saturation VBG Base Excess Sodium 150 H Potassium 3.9 Chloride 114 H Carbon Dioxide 21 L Anion Gap 19 BUN 124 H Creatinine 1.57 H Estim Creat Clear Calc 52.2 Estimated GFR 44 POC Glucose Random Glucose 328 H D Calcium 7.8 L Phosphorus 7.4 H Total Bilirubin 2.5 H AST 48 H ALT 10 Alkaline Phosphatase 88 Ammonia 49 Total Protein 7.6 Albumin 2.7 L Rheumatoid Factor ZAYDA Titer ZAYDA Titer 2 ZAYDA Titer 3 ZAYDA Pattern ZAYDA Pattern 2 ZAYDA Pattern 3 Anti-Mitochondrial Ab Blood Type Antibody Screen 08/18/21 08/18/21 08/18/21 05:11 05:27 08:48 WBC RBC Hgb Hct MCV MCH MCHC RDW Plt Count MPV Immature Gran % (Auto) Neut % (Auto) Lymph % (Auto) [place] % (Auto) Eos % (Auto) Baso % (Auto) Lymph # (Auto) [place] # (Auto) Eos # (Auto) Baso # (Auto) Abs Immat Gran (auto) Absolute Neuts (auto) Absolute Nucleated RBC Nucleated RBC % (auto) Smear Tech's Comments ESR 109 H PT INR APTT Fibrinogen VBG pH 7.38 VBG pCO2 38 VBG pO2 52 VBG HCO3 23 VBG O2 Saturation 76.0 VBG Base Excess -1.6 Sodium Potassium Chloride Carbon Dioxide Anion Gap BUN Creatinine Estim Creat Clear Calc Estimated GFR POC Glucose 268 H Random Glucose Calcium Phosphorus Total Bilirubin AST ALT Alkaline Phosphatase Ammonia Total Protein Albumin Rheumatoid Factor ZAYDA Titer ZAYDA Titer 2 ZAYDA Titer 3 ZAYDA Pattern ZAYDA Pattern 2 ZAYDA Pattern 3 Anti-Mitochondrial Ab Blood Type Antibody Screen 08/18/21 08/18/21 08/18/21 08:48 09:05 11:53 WBC RBC Hgb Hct MCV MCH MCHC RDW Plt Count MPV Immature Gran % (Auto) Neut % (Auto) Lymph % (Auto) [place] % (Auto) Eos % (Auto) Baso % (Auto) Lymph # (Auto) [place] # (Auto) Eos # (Auto) Baso # (Auto) Abs Immat Gran (auto) Absolute Neuts (auto) Absolute Nucleated RBC Nucleated RBC % (auto) Smear Tech's Comments ESR PT 18.6 H INR 1.6 H APTT 40.7 H D Fibrinogen 336 VBG pH VBG pCO2 VBG pO2 VBG HCO3 VBG O2 Saturation VBG Base Excess Sodium Potassium Chloride Carbon Dioxide Anion Gap BUN Creatinine Estim Creat Clear Calc Estimated GFR POC Glucose 262 H Random Glucose Calcium Phosphorus Total Bilirubin AST ALT Alkaline Phosphatase Ammonia Total Protein Albumin Rheumatoid Factor < 15.0 ZAYDA Titer ZAYDA Titer 2 ZAYDA Titer 3 ZAYDA Pattern ZAYDA Pattern 2 ZAYDA Pattern 3 Anti-Mitochondrial Ab Blood Type Antibody Screen Microbiology Microbiology Results: Microbiology 08/15/21 05:22 Blood - Venous Blood Culture - Final Staphylococcus aureus 08/15/21 05:22 Blood - Venous Blood Culture - Final Staphylococcus aureus 08/17/21 05:48 Blood - Venous Blood Culture - Preliminary No growth after 24 hours. 08/17/21 05:48 Blood - Venous Blood Culture - Preliminary No growth after 24 hours. 08/14/21 23:17 Sputum - Induced Gram Stain - Final 08/14/21 23:17 Sputum - Induced Sputum Culture - Final 08/13/21 08:09 Blood - Venous Blood Culture - Final Staphylococcus aureus 08/13/21 08:09 Blood - Venous Blood Culture - Final Staphylococcus aureus 08/11/21 01:50 Blood - Venous Blood Culture - Final Staphylococcus aureus 08/11/21 01:50 Blood - Venous Blood Culture - Final Staphylococcus aureus Progress Note: A&P Assessment and plan (1) Pneumonia: Status: Acute (2) Hemoptysis: Status: Acute (3) Thrombocytopenia: Status: Acute (4) SOB (shortness of breath): Status: Acute (5) MSSA bacteremia: Status: Acute (6) Fall: Status: Acute (7) Hypernatremia: Status: Acute (8) 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: Status: Acute (9) Hyperlipidemia LDL goal <70: Status: Acute (10) Atrial fibrillation, new onset: Status: Acute (11) Acute kidney injury: Status: Acute (12) Acute hyponatremia: Status: Acute (13) Obesity (BMI 30-39.9): Status: Acute (14) CKD (chronic kidney disease) stage 3, GFR 30-59 ml/min: Status: Acute (15) Type 2 diabetes mellitus with hyperglycemia, with long-term current use of insulin: Status: Acute (16) Essential hypertension: Status: Acute (17) Palpable purpura: Status: Acute Plan Bronchoscopy with BAL and full-thickness skin biopsy Quality Stroke Does the patient have a stroke diagnosis?: No VTE Prior VTE?: No VTE Risk Level:: Medical - moderate - high VTE Device Contraindication: Treatment Not Indicated VTE Drug Contraindication: N/A - Med Ordered
[2021-08-18 14:16] LABS: Smooth Muscle Antibody <20 U (<20)
[2021-08-18] MEDS: dilTIAZem HCL 125 MG in 0.9 % Sodium Chloride 100 ML IVCONT (15:15)
[2021-08-18] MEDS: dilTIAZem HCL 50 MG/10 ML VIAL 25 MG IVPUSH (15:33)
--- NOTE | 2021-08-18 15:41 | P.CNID_ITS ---
History of Present Illness Data of Consult Service Date: 08/18/21 Requesting physician: Diego Lopez Primary Care Provider: Ada Urias NP HPI Reason for consult: bacteremia,rash He presents with one week shoulder and upper back pain ,8/10. He has no fever or chills. He develops encephalopathy and goes to ICU. He has MSSA bacteremia and unremarkable GIL. He has rash today with palpable purpura. Biopsy is planned. Review of Systems Review of Systems: Yes all other systems are reviewed and are negative PMFSH Past Medical History Medical History Allergic rhinitis Erectile dysfunction Obstructive sleep apnea Retinopathy Tubular adenoma Vitamin D deficiency Functional capacity: bed bound Family History Family History Father Myocardial infarction CVD (cardiovascular disease) Mother Diabetes Surgical History Surgical History History of surgical procedure on eye proper using laser Hx of cataract surgery Hx of cholecystectomy Hx of colonoscopy with polypectomy Social History Social History Household Members: Children Housing: Apartment Patient Tobacco Use Status: Never used Tobacco service: No Current occupational status: retired and disabled 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 Meds Allergies Allergy/AdvReac Type Severity Reaction Status Date / Time FRESH FRUIT Allergy Unknown ITCHY EARS Uncoded 06/03/21 10:48 THROAT Sesonal allergies Allergy Unknown itchiness Uncoded 06/03/21 10:48 some fresh fruit Allergy Unknown itchiness Uncoded 06/03/21 10:48 Active Medications: Current Medications Albuterol/Ipratropium (Albuterol/Iprat 2.5/0.5mg 3 Ml Ampul.Neb) 3 ml INHALE RQ4H PRN PRN Reason: wheezing/shortness of breath Last Admin: 08/14/21 22:00 Dose: 3 ml Atorvastatin Calcium (Atorvastatin Calcium 40 Mg Tablet) 40 mg PO BEDTIME [facility] Last Admin: 08/17/21 22:23 Dose: 40 mg Chlorhexidine Gluconate (Chlorhexidine Gluc Oral Rinse 15 Ml Mouthwash) 15 ml BUCCAL TID [facility] Last Admin: 08/18/21 15:14 Dose: 15 ml Norepinephrine Bitartrate (Levophed) 8 mg in 250 mls @ 0 mls/hr IVCONT .Q0M [facility]ENG; Protocol Last Titration: 08/18/21 13:27 Dose: 0.07 mcg/kg/min, 12.3 mls/hr Propofol (Diprivan) 1,000 mg in 100 mls @ 0 mls/hr IVCONT .Q0M MENG; Protocol Last Admin: 08/18/21 13:14 Dose: 20 mcg/kg/min, 11.24 mls/hr Cefazolin Sodium/Dextrose (Ancef) 2 gm in 50 mls @ 100 mls/hr IV Q24H MENG Last Infusion: 08/18/21 01:11 Dose: Infused Diltiazem HCl 125 mg/ Sodium (Chloride) 125 mls @ 0 mls/hr IVCONT .Q0M MENG; Protocol Last Admin: 08/18/21 15:15 Dose: 5 mg/hr, 5 mls/hr Insulin Human Lispro (Insulin Lispro 100 Unit/Ml 3 Ml Vial) 0 unit SUBCUT Q6H MENG; Protocol Last Admin: 08/18/21 12:01 Dose: 6 unit Lactulose (Lactulose 20 Gm/30 Ml Solution) 40 gm G-TUBE Q24H MENG Last Admin: 08/17/21 19:40 Dose: Not Given Lidocaine (Lidocaine 4 % Patch Adh..Patch) 1 patch TRANSDERMA DAILY [facility]; Protocol Last Admin: 08/18/21 08:07 Dose: 1 patch Sodium Bicarbonate (Sodium Bicarbonate 650 Mg Tablet) 650 mg G-TUBE Q6H MENG Last Admin: 08/18/21 15:14 Dose: 650 mg Sodium Chloride (0.9 % Sodium Chloride Flush 3 Ml Syringe) 3 ml IVFLUSH QSHIFT [facility] Last Admin: 08/18/21 07:45 Dose: 3 ml Thiamine HCl (Thiamine Hcl 100 Mg Tablet) 100 mg PO DAILY [facility] Last Admin: 08/18/21 08:06 Dose: 100 mg Home Medications Medication Instructions Recorded Confirmed Last Taken Type amlodipine 5 mg tablet 5 mg PO DAILY 02/01/20 08/09/21 08/08/21 History aspirin 81 mg tablet,delayed 81 mg PO BEDTIME 02/01/20 08/09/21 08/08/21 History release atorvastatin 40 mg tablet 40 mg PO DAILY 02/01/20 08/09/21 08/08/21 History blood sugar diagnostic #10 ea 02/01/20 06/03/21 Unknown History furosemide 20 mg tablet 20 mg PO DAILY 02/01/20 08/09/21 08/08/21 History hydrochlorothiazide 25 mg tablet 25 mg PO DAILY 02/01/20 08/09/21 08/08/21 History lancets 33 gauge #100 ea 02/01/20 06/20/21 Unknown History losartan 100 mg tablet 100 mg PO QAM 02/01/20 08/09/21 08/08/21 History metoprolol succinate 200 mg 200 mg PO BEDTIME 02/01/20 08/09/21 08/08/21 History tablet,extended release 24 hr omeprazole 20 mg capsule,delayed 20 mg PO QAM 02/01/20 08/09/21 Unknown History release spironolactone 25 mg tablet 25 mg PO DAILY 04/26/20 08/09/21 08/08/21 History sildenafil 100 mg tablet 100 mg PO DAILY PRN Sexual Activity 05/16/20 08/09/21 Unknown History calcium carbonate 600 mg-vitamin 1 tab PO DAILY 06/20/21 08/09/21 08/08/21 History D3 10 mcg (400 unit) tablet atorvastatin 40 mg tablet 1 tab PO BEDTIME 08/09/21 08/09/21 08/08/21 History dulaglutide 0.75 mg/0.5 mL 0.75 mg subcut WE 08/09/21 08/09/21 08/06/21 History subcutaneous pen injector (Trulicity) insulin aspart U-100 100 unit/mL 35 unit subcut TIDAC 08/09/21 08/09/21 08/08/21 History (3 mL) subcutaneous pen (Novolog Flexpen U-100 Insulin aspart) insulin glargine U-300 conc 300 135 unit subcut DAILY 08/09/21 08/09/21 08/08/21 History unit/mL (3 mL) subcutaneous pen (Toujeo Max U-300 SoloStar) Physical Exam Vital Signs: Vital Signs: Last Vital Signs Temp 97.7 F 08/18/21 12:00 Pulse 133 H 08/18/21 15:00 Resp 18 08/18/21 15:00 BP 143/63 H 08/18/21 15:00 Pulse Ox 93 08/18/21 15:00 O2 Del Method 08/18/21 15:00 O2 Flow Rate 55 08/14/21 22:00 FiO2 45 08/18/21 15:00 BMI result Body Mass Index 34.4 Const: General: cooperative Eyes: General: appearance normal, both eyes and all related structures Pupils: Equal, round and reactive pupils present Resp: Effort & Inspection: normal respiratory effort Cardio: Rate: regular rate Rhythm: regular rhythm GI: Palpation (GI): Soft to palpation and nontender Skin: Other: purpuric areas right hand and on scrotal area and arms Neuro: Cranial nerves: Yes Equal, round and reactive pupils present Results Labs CBC & Chem 7: 08/18/21 05:08 08/18/21 05:08 Labs: Short CBC 08/17/21 08/18/21 Range/Units 19:30 05:08 WBC 16.4 H 17.2 H (4.8-10.8) X10*3/uL Hgb 7.6 L 7.5 L (14.0-18.0) g/dl Hct 22.8 L 23.0 L (42.0-52.0) % Plt Count 50 L D 46 L (160-400) X10*3/uL BMP 08/18/21 05:08 Sodium 150 H Potassium 3.9 Chloride 114 H Carbon Dioxide 21 L BUN 124 H Creatinine 1.57 H Calcium 7.8 L Liver Function 08/18/21 Range/Units 05:08 Total Bilirubin 2.5 H (0.0-1.0) mg/dL AST 48 H (5-37) U/L ALT 10 (0-40) U/L Alkaline Phosphatase 88 (39-117) U/L Albumin 2.7 L (3.5-5.0) g/dL Microbiology Microbiology Results: Microbiology 08/15/21 05:22 Blood - Venous Blood Culture - Final Staphylococcus aureus 08/15/21 05:22 Blood - Venous Blood Culture - Final Staphylococcus aureus 08/17/21 05:48 Blood - Venous Blood Culture - Preliminary No growth after 24 hours. 08/17/21 05:48 Blood - Venous Blood Culture - Preliminary No growth after 24 hours. 08/14/21 23:17 Sputum - Induced Gram Stain - Final 08/14/21 23:17 Sputum - Induced Sputum Culture - Final 08/13/21 08:09 Blood - Venous Blood Culture - Final Staphylococcus aureus 08/13/21 08:09 Blood - Venous Blood Culture - Final Staphylococcus aureus 08/11/21 01:50 Blood - Venous Blood Culture - Final Staphylococcus aureus 08/11/21 01:50 Blood - Venous Blood Culture - Final Staphylococcus aureus Assessment and Plan (1) Palpable purpura: Status: Acute This is most consistent with a vasculitis,sequelae of thrombocytopenia or septic emboli although GIL was negative for endocarditis. CT abdomen showed cirrhotic liver with some ascites so possibly SBP could be instigator. (2) Thrombocytopenia: Status: Acute (3) MSSA bacteremia: Status: Acute (4) Fall: Qualifiers: Encounter type: initial encounter Qualified Code(s): W19.XXXA - Unspec ified fall, initial encounter Status: Acute Plan Kefzol for six weeks apparently since slow to clear and possible septic emboli although GIL was negative.
--- NOTE | 2021-08-18 16:43 | PC.NURSE ---
1639-Dr. Jackson at bedside to perform skin biopsy.
[2021-08-18] MEDS: Lidocaine HCl 2% PF/Epi 1:200 20 ML VIAL SUBCUT (16:47)
[2021-08-18 17:55] LABS: Glucose, Whole Blood 302 mg/dL (60-115)
--- NOTE | 2021-08-18 18:04 | PM.CNGS ---
History of Present Illness Consult details Consult date: 08/18/21 Requesting physician: Sadia Cano Narrative: 66-year-old male patient with a previous alcohol history noted to have thrombocytopenia now with a palpable purpura involving the extremities and trunk. Concern was raise as to the etiology of the purpura possibly due to vasculitis. Surgical consultation was requested for skin biopsy of 1 of lesions. The patient is currently intubated and sedated in the ICU. Patient's family is available for discussion regarding procedure. Review of Systems Review of Systems: Yes Unobtainable due to mental status PMFSH Past Medical History Medical History Allergic rhinitis Erectile dysfunction Obstructive sleep apnea Retinopathy Tubular adenoma Vitamin D deficiency Functional capacity: bed bound Family History Family History Father Myocardial infarction CVD (cardiovascular disease) Mother Diabetes Surgical History Surgical History History of surgical procedure on eye proper using laser Hx of cataract surgery Hx of cholecystectomy Hx of colonoscopy with polypectomy Social History Social History Household Members: Children Housing: Apartment Patient Tobacco Use Status: Never used Tobacco service: No Current occupational status: retired and disabled 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 Meds Allergies Allergy/AdvReac Type Severity Reaction Status Date / Time FRESH FRUIT Allergy Unknown ITCHY EARS Uncoded 06/03/21 10:48 THROAT Sesonal allergies Allergy Unknown itchiness Uncoded 06/03/21 10:48 some fresh fruit Allergy Unknown itchiness Uncoded 06/03/21 10:48 Active Medications: Current Medications Albuterol/Ipratropium (Albuterol/Iprat 2.5/0.5mg 3 Ml Ampul.Neb) 3 ml INHALE RQ4H PRN PRN Reason: wheezing/shortness of breath Last Admin: 08/14/21 22:00 Dose: 3 ml Atorvastatin Calcium (Atorvastatin Calcium 40 Mg Tablet) 40 mg PO BEDTIME [facility] Last Admin: 08/17/21 22:23 Dose: 40 mg Chlorhexidine Gluconate (Chlorhexidine Gluc Oral Rinse 15 Ml Mouthwash) 15 ml BUCCAL TID [facility] Last Admin: 08/18/21 15:14 Dose: 15 ml Norepinephrine Bitartrate (Levophed) 8 mg in 250 mls @ 0 mls/hr IVCONT .Q0M MENG; Protocol Last Titration: 08/18/21 17:16 Dose: 0.03 mcg/kg/min, 5.27 mls/hr Propofol (Diprivan) 1,000 mg in 100 mls @ 0 mls/hr IVCONT .Q0M [facility]ENG; Protocol Last Admin: 08/18/21 13:14 Dose: 20 mcg/kg/min, 11.24 mls/hr Cefazolin Sodium/Dextrose (Ancef) 2 gm in 50 mls @ 100 mls/hr IV Q24H MENG Last Infusion: 08/18/21 01:11 Dose: Infused Diltiazem HCl 125 mg/ Sodium (Chloride) 125 mls @ 0 mls/hr IVCONT .Q0M [facility]ENG; Protocol Last Titration: 08/18/21 18:03 Dose: 15 mg/hr, 15 mls/hr Dextrose (D5w) 1,000 mls @ 125 mls/hr IVCONT .Q8H MENG Insulin Human Lispro (Insulin Lispro 100 Unit/Ml 3 Ml Vial) 0 unit SUBCUT Q6H [facility]ENG; Protocol Last Admin: 08/18/21 12:01 Dose: 6 unit Lactulose (Lactulose 20 Gm/30 Ml Solution) 40 gm G-TUBE Q24H [facility]ENG Last Admin: 08/17/21 19:40 Dose: Not Given Lidocaine (Lidocaine 4 % Patch Adh..Patch) 1 patch TRANSDERMA DAILY [facility]; Protocol Last Admin: 08/18/21 08:07 Dose: 1 patch Sodium Bicarbonate (Sodium Bicarbonate 650 Mg Tablet) 650 mg G-TUBE Q6H MENG Last Admin: 08/18/21 15:14 Dose: 650 mg Sodium Chloride (0.9 % Sodium Chloride Flush 3 Ml Syringe) 3 ml IVFLUSH QSHIFT [facility] Last Admin: 08/18/21 07:45 Dose: 3 ml Thiamine HCl (Thiamine Hcl 100 Mg Tablet) 100 mg PO DAILY [facility] Last Admin: 08/18/21 08:06 Dose: 100 mg Home Medications Medication Instructions Recorded Confirmed Last Taken Type amlodipine 5 mg tablet 5 mg PO DAILY 02/01/20 08/09/21 08/08/21 History aspirin 81 mg tablet,delayed 81 mg PO BEDTIME 02/01/20 08/09/21 08/08/21 History release atorvastatin 40 mg tablet 40 mg PO DAILY 02/01/20 08/09/21 08/08/21 History blood sugar diagnostic #10 ea 02/01/20 06/03/21 Unknown History furosemide 20 mg tablet 20 mg PO DAILY 02/01/20 08/09/21 08/08/21 History hydrochlorothiazide 25 mg tablet 25 mg PO DAILY 02/01/20 08/09/21 08/08/21 History lancets 33 gauge #100 ea 02/01/20 06/20/21 Unknown History losartan 100 mg tablet 100 mg PO QAM 02/01/20 08/09/21 08/08/21 History metoprolol succinate 200 mg 200 mg PO BEDTIME 02/01/20 08/09/21 08/08/21 History tablet,extended release 24 hr omeprazole 20 mg capsule,delayed 20 mg PO QAM 02/01/20 08/09/21 Unknown History release spironolactone 25 mg tablet 25 mg PO DAILY 04/26/20 08/09/21 08/08/21 History sildenafil 100 mg tablet 100 mg PO DAILY PRN Sexual Activity 05/16/20 08/09/21 Unknown History calcium carbonate 600 mg-vitamin 1 tab PO DAILY 06/20/21 08/09/21 08/08/21 History D3 10 mcg (400 unit) tablet atorvastatin 40 mg tablet 1 tab PO BEDTIME 08/09/21 08/09/21 08/08/21 History dulaglutide 0.75 mg/0.5 mL 0.75 mg subcut WE 08/09/21 08/09/21 08/06/21 History subcutaneous pen injector (Trulicity) insulin aspart U-100 100 unit/mL 35 unit subcut TIDAC 08/09/21 08/09/21 08/08/21 History (3 mL) subcutaneous pen (Novolog Flexpen U-100 Insulin aspart) insulin glargine U-300 conc 300 135 unit subcut DAILY 08/09/21 08/09/21 08/08/21 History unit/mL (3 mL) subcutaneous pen (Toujeo Max U-300 SoloStar) Physical Exam Vital Signs: Vital Signs: Last Vital Signs Temp 97.7 F 08/18/21 12:00 Pulse 111 H 08/18/21 17:00 Resp 17 08/18/21 17:00 BP 132/60 08/18/21 17:00 Pulse Ox 93 08/18/21 17:00 O2 Del Method 08/18/21 17:00 O2 Flow Rate 55 08/14/21 22:00 FiO2 45 08/18/21 17:00 BMI result Body Mass Index 34.4 Const: Other: Resting comfortably on the vent, sedated, no response to verbal stimuli Resp: Other: breathing comfortably on the vent Cardio: Other: mild tachycardia, irregular rate and rhythm GI: Other: soft and nondistended. Rash located in the lower abdomen especially On the left side Skin: Other: multiple areas of purpura including the lower extremities in bilateral feet Extrem: Other: per per as noted above, edema especially in the ankles and feet Results Labs Result diagrams: 08/18/21 05:08 08/18/21 05:08 Labs: Abnormal lab results 08/17/21 08/17/21 08/18/21 Range/Units 17:50 19:30 00:13 WBC 16.4 H (4.8-10.8) X10*3/uL RBC 2.56 L (4.60-5.80) X10*6/uL Hgb 7.6 L (14.0-18.0) g/dl Hct 22.8 L (42.0-52.0) % Plt Count 50 L D (160-400) X10*3/uL Immature Gran % (Auto) (0.0-0.4) % Neut % (Auto) (45-73) % Lymph % (Auto) (20-40) % Lymph # (Auto) (1.2-4.9) X10*3/uL Abs Immat Gran (auto) (0.00-0.03) X10*3/uL Absolute Neuts (auto) (2.0-8.3) x10*3/uL Absolute Nucleated RBC 0.030 H (0.0-0.012) X10*3/uL Nucleated RBC % (auto) (0.0-0.2) /100WBC ESR (0-15) MM/HR PT (9.9-13.0) SEC INR (0.9-1.1) APTT (24.1-38.0) SEC Sodium (135-145) mmol/L Chloride (96-108) mmol/L Carbon Dioxide (22-29) mmol/L BUN (9-16) mg/dL Creatinine (0.5-1.4) mg/dL POC Glucose 262 H 266 H (60-115) mg/dL Random Glucose (60-115) mg/dL Calcium (8.4-10.2) mg/dL Phosphorus (2.7-4.5) mg/dL Total Bilirubin (0.0-1.0) mg/dL AST (5-37) U/L Albumin (3.5-5.0) g/dL 08/18/21 08/18/21 08/18/21 Range/Units 05:08 05:08 05:27 WBC 17.2 H (4.8-10.8) X10*3/uL RBC 2.55 L (4.60-5.80) X10*6/uL Hgb 7.5 L (14.0-18.0) g/dl Hct 23.0 L (42.0-52.0) % Plt Count 46 L (160-400) X10*3/uL Immature Gran % (Auto) 1.2 H (0.0-0.4) % Neut % (Auto) 90.5 H (45-73) % Lymph % (Auto) 5.3 L (20-40) % Lymph # (Auto) 0.9 L (1.2-4.9) X10*3/uL Abs Immat Gran (auto) 0.21 H (0.00-0.03) X10*3/uL Absolute Neuts (auto) 15.6 H (2.0-8.3) x10*3/uL Absolute Nucleated RBC 0.050 H (0.0-0.012) X10*3/uL Nucleated RBC % (auto) 0.3 H (0.0-0.2) /100WBC ESR (0-15) MM/HR PT (9.9-13.0) SEC INR (0.9-1.1) APTT (24.1-38.0) SEC Sodium 150 H (135-145) mmol/L Chloride 114 H (96-108) mmol/L Carbon Dioxide 21 L (22-29) mmol/L BUN 124 H (9-16) mg/dL Creatinine 1.57 H (0.5-1.4) mg/dL POC Glucose 268 H (60-115) mg/dL Random Glucose 328 H D (60-115) mg/dL Calcium 7.8 L (8.4-10.2) mg/dL Phosphorus 7.4 H (2.7-4.5) mg/dL Total Bilirubin 2.5 H (0.0-1.0) mg/dL AST 48 H (5-37) U/L Albumin 2.7 L (3.5-5.0) g/dL 08/18/21 08/18/21 08/18/21 Range/Units 08:48 09:05 11:53 WBC (4.8-10.8) X10*3/uL RBC (4.60-5.80) X10*6/uL Hgb (14.0-18.0) g/dl Hct (42.0-52.0) % Plt Count (160-400) X10*3/uL Immature Gran % (Auto) (0.0-0.4) % Neut % (Auto) (45-73) % Lymph % (Auto) (20-40) % Lymph # (Auto) (1.2-4.9) X10*3/uL Abs Immat Gran (auto) (0.00-0.03) X10*3/uL Absolute Neuts (auto) (2.0-8.3) x10*3/uL Absolute Nucleated RBC (0.0-0.012) X10*3/uL Nucleated RBC % (auto) (0.0-0.2) /100WBC ESR 109 H (0-15) MM/HR PT 18.6 H (9.9-13.0) SEC INR 1.6 H (0.9-1.1) APTT 40.7 H D (24.1-38.0) SEC Sodium (135-145) mmol/L Chloride (96-108) mmol/L Carbon Dioxide (22-29) mmol/L BUN (9-16) mg/dL Creatinine (0.5-1.4) mg/dL POC Glucose 262 H (60-115) mg/dL Random Glucose (60-115) mg/dL Calcium (8.4-10.2) mg/dL Phosphorus (2.7-4.5) mg/dL Total Bilirubin (0.0-1.0) mg/dL AST (5-37) U/L Albumin (3.5-5.0) g/dL 08/18/21 Range/Units 17:51 WBC (4.8-10.8) X10*3/uL RBC (4.60-5.80) X10*6/uL Hgb (14.0-18.0) g/dl Hct (42.0-52.0) % Plt Count (160-400) X10*3/uL Immature Gran % (Auto) (0.0-0.4) % Neut % (Auto) (45-73) % Lymph % (Auto) (20-40) % Lymph # (Auto) (1.2-4.9) X10*3/uL Abs Immat Gran (auto) (0.00-0.03) X10*3/uL Absolute Neuts (auto) (2.0-8.3) x10*3/uL Absolute Nucleated RBC (0.0-0.012) X10*3/uL Nucleated RBC % (auto) (0.0-0.2) /100WBC ESR (0-15) MM/HR PT (9.9-13.0) SEC INR (0.9-1.1) APTT (24.1-38.0) SEC Sodium (135-145) mmol/L Chloride (96-108) mmol/L Carbon Dioxide (22-29) mmol/L BUN (9-16) mg/dL Creatinine (0.5-1.4) mg/dL POC Glucose 302 H (60-115) mg/dL Random Glucose (60-115) mg/dL Calcium (8.4-10.2) mg/dL Phosphorus (2.7-4.5) mg/dL Total Bilirubin (0.0-1.0) mg/dL AST (5-37) U/L Albumin (3.5-5.0) g/dL Short CBC 08/17/21 08/18/21 Range/Units 19:30 05:08 WBC 16.4 H 17.2 H (4.8-10.8) X10*3/uL Hgb 7.6 L 7.5 L (14.0-18.0) g/dl Hct 22.8 L 23.0 L (42.0-52.0) % Plt Count 50 L D 46 L (160-400) X10*3/uL BMP 08/18/21 05:08 Sodium 150 H Potassium 3.9 Chloride 114 H Carbon Dioxide 21 L BUN 124 H Creatinine 1.57 H Calcium 7.8 L Liver Function 08/18/21 Range/Units 05:08 Total Bilirubin 2.5 H (0.0-1.0) mg/dL AST 48 H (5-37) U/L ALT 10 (0-40) U/L Alkaline Phosphatase 88 (39-117) U/L Albumin 2.7 L (3.5-5.0) g/dL Urine 08/09/21 08/11/21 Range/Units 08:22 06:32 Urine Color YELLOW YELLOW Urine Appearance CLEAR CLEAR Urine pH 5.5 5.0 (5.0-8.0) Ur Specific [place] 1.025 >= 1.030 H (1.005-1.025) Urine Protein TRACE TRACE (NEG-TRACE) MG/DL Urine Glucose (UA) NEG NEG (NEG) MG/DL All other labs normal. Assessment and Plan (1) Palpable purpura: Status: Acute Plan 66-year-old male patient presenting with a palpable purpura over multiple areas of the body, concerning for vasculitis. Findings were discussed with the patient's family and consent obtained for a small punch biopsy be performed at the bedside. After discussion of the procedure, risks, and alternatives, the family provides consent for procedure. This was discussed with Dr. Hu, and a biopsy of the right foot lesion recommended. Procedure was performed at the bedside the patient tolerated this well. Specimen was sent to pathology further examination. Procedures Date of Service Date of Service: 08/18/21 Procedure Note Procedure Note: Preoperative diagnosis: Palpable purpura Postoperative diagnosis: same Procedure: punch biopsy skin right foot Surgeon: Macario Jackson MD Maintenance Shop Manager: Marisol Black PA-C Anesthesia: local lidocaine 2% with epi Indications for procedure: new onset palpable purpura lesions noted diffusely. Operative findings: 4 mm punch biopsy performed Specimen: punch biopsy right foot skin lesion Estimated blood loss: less than 1 mL Complications: none Procedure details: procedure was performed at the bedside. The site of surgery was confirmed and a time-out performed. Informed consent was assured this family. Skin was then prepped Betadine . Local was infiltrated below the lesion. A 4 mm punch biopsy was then performed to include the entire lesion and a rim of normal tissue. Lesion was full-thickness. Lesion was sent to pathology for further examination. Pressure was held to maintain hemostasis followed by a pressure dressing and 4 in [place]. The patient tolerated the procedure well No immediate complications.
[2021-08-18] MEDS: Dextrose 5 % 1,000 ML 125 ML IVCONT (18:47)
--- NOTE | 2021-08-18 19:22 | P.PNNP_ITS ---
Subjective Subjective Date of Service: 08/18/21 Principal diagnosis: AF Interval history: Chart Reviewed. Events noted. Physical Exam Vital Signs: Vital Signs: Last Vital Signs Temp 97.7 F 08/18/21 12:00 Pulse 113 H 08/18/21 19:00 Resp 20 08/18/21 19:00 BP 124/52 L 08/18/21 19:00 Pulse Ox 93 08/18/21 19:00 O2 Del Method 08/18/21 19:00 O2 Flow Rate 55 08/14/21 22:00 FiO2 45 08/18/21 19:00 BMI result Body Mass Index 34.4 Const: General: no acute distress HEENT: Head: Yes normocephalic and Yes atraumatic Neck: Neck: Yes no JVD Resp: Auscultation: clear to auscultation bilaterally Cardio: Jugular venous distension: no JVD Rate: tachycardic GI: Auscultation: normal bowel sounds Neuro: Other: sedated Extrem: General: Yes edema Objective Data Labs CBC & Chem 7: 08/18/21 05:08 08/18/21 05:08 Labs: Laboratory Results - last 24 hr 08/13/21 08/17/21 08/18/21 08:09 19:30 00:13 WBC 16.4 H RBC 2.56 L Hgb 7.6 L Hct 22.8 L MCV 89.1 MCH 29.7 MCHC 33.3 RDW 15.6 Plt Count 50 L D MPV 11.5 Immature Gran % (Auto) Neut % (Auto) Lymph % (Auto) [place] % (Auto) Eos % (Auto) Baso % (Auto) Lymph # (Auto) [place] # (Auto) Eos # (Auto) Baso # (Auto) Abs Immat Gran (auto) Absolute Neuts (auto) Absolute Nucleated RBC 0.030 H Nucleated RBC % (auto) 0.2 Smear Tech's Comments ESR PT INR APTT Fibrinogen VBG pH VBG pCO2 VBG pO2 VBG HCO3 VBG O2 Saturation VBG Base Excess Sodium Potassium Chloride Carbon Dioxide Anion Gap BUN Creatinine Estim Creat Clear Calc Estimated GFR POC Glucose 266 H Random Glucose Calcium Phosphorus Total Bilirubin AST ALT Alkaline Phosphatase Ammonia Total Protein Albumin Rheumatoid Factor Anti-Smooth Muscle Ab <20 08/18/21 08/18/21 08/18/21 05:08 05:08 05:08 WBC 17.2 H RBC 2.55 L Hgb 7.5 L Hct 23.0 L MCV 90.2 MCH 29.4 MCHC 32.6 RDW 15.9 Plt Count 46 L MPV 12.3 Immature Gran % (Auto) 1.2 H Neut % (Auto) 90.5 H Lymph % (Auto) 5.3 L [place] % (Auto) 2.7 Eos % (Auto) 0.2 Baso % (Auto) 0.1 Lymph # (Auto) 0.9 L [place] # (Auto) 0.5 Eos # (Auto) 0.0 Baso # (Auto) 0.0 Abs Immat Gran (auto) 0.21 H Absolute Neuts (auto) 15.6 H Absolute Nucleated RBC 0.050 H Nucleated RBC % (auto) 0.3 H Smear Tech's Comments VERIFIED ESR PT INR APTT Fibrinogen VBG pH VBG pCO2 VBG pO2 VBG HCO3 VBG O2 Saturation VBG Base Excess Sodium 150 H Potassium 3.9 Chloride 114 H Carbon Dioxide 21 L Anion Gap 19 BUN 124 H Creatinine 1.57 H Estim Creat Clear Calc 52.2 Estimated GFR 44 POC Glucose Random Glucose 328 H D Calcium 7.8 L Phosphorus 7.4 H Total Bilirubin 2.5 H AST 48 H ALT 10 Alkaline Phosphatase 88 Ammonia 49 Total Protein 7.6 Albumin 2.7 L Rheumatoid Factor Anti-Smooth Muscle Ab 08/18/21 08/18/21 08/18/21 05:11 05:27 08:48 WBC RBC Hgb Hct MCV MCH MCHC RDW Plt Count MPV Immature Gran % (Auto) Neut % (Auto) Lymph % (Auto) [place] % (Auto) Eos % (Auto) Baso % (Auto) Lymph # (Auto) [place] # (Auto) Eos # (Auto) Baso # (Auto) Abs Immat Gran (auto) Absolute Neuts (auto) Absolute Nucleated RBC Nucleated RBC % (auto) Smear Tech's Comments ESR 109 H PT INR APTT Fibrinogen VBG pH 7.38 VBG pCO2 38 VBG pO2 52 VBG HCO3 23 VBG O2 Saturation 76.0 VBG Base Excess -1.6 Sodium Potassium Chloride Carbon Dioxide Anion Gap BUN Creatinine Estim Creat Clear Calc Estimated GFR POC Glucose 268 H Random Glucose Calcium Phosphorus Total Bilirubin AST ALT Alkaline Phosphatase Ammonia Total Protein Albumin Rheumatoid Factor Anti-Smooth Muscle Ab 08/18/21 08/18/21 08/18/21 08:48 09:05 11:53 WBC RBC Hgb Hct MCV MCH MCHC RDW Plt Count MPV Immature Gran % (Auto) Neut % (Auto) Lymph % (Auto) [place] % (Auto) Eos % (Auto) Baso % (Auto) Lymph # (Auto) [place] # (Auto) Eos # (Auto) Baso # (Auto) Abs Immat Gran (auto) Absolute Neuts (auto) Absolute Nucleated RBC Nucleated RBC % (auto) Smear Tech's Comments ESR PT 18.6 H INR 1.6 H APTT 40.7 H D Fibrinogen 336 VBG pH VBG pCO2 VBG pO2 VBG HCO3 VBG O2 Saturation VBG Base Excess Sodium Potassium Chloride Carbon Dioxide Anion Gap BUN Creatinine Estim Creat Clear Calc Estimated GFR POC Glucose 262 H Random Glucose Calcium Phosphorus Total Bilirubin AST ALT Alkaline Phosphatase Ammonia Total Protein Albumin Rheumatoid Factor < 15.0 Anti-Smooth Muscle Ab 08/18/21 17:51 WBC RBC Hgb Hct MCV MCH MCHC RDW Plt Count MPV Immature Gran % (Auto) Neut % (Auto) Lymph % (Auto) [place] % (Auto) Eos % (Auto) Baso % (Auto) Lymph # (Auto) [place] # (Auto) Eos # (Auto) Baso # (Auto) Abs Immat Gran (auto) Absolute Neuts (auto) Absolute Nucleated RBC Nucleated RBC % (auto) Smear Tech's Comments ESR PT INR APTT Fibrinogen VBG pH VBG pCO2 VBG pO2 VBG HCO3 VBG O2 Saturation VBG Base Excess Sodium Potassium Chloride Carbon Dioxide Anion Gap BUN Creatinine Estim Creat Clear Calc Estimated GFR POC Glucose 302 H Random Glucose Calcium Phosphorus Total Bilirubin AST ALT Alkaline Phosphatase Ammonia Total Protein Albumin Rheumatoid Factor Anti-Smooth Muscle Ab Microbiology Microbiology Results: Microbiology 08/15/21 05:22 Blood - Venous Blood Culture - Final Staphylococcus aureus 08/15/21 05:22 Blood - Venous Blood Culture - Final Staphylococcus aureus 08/17/21 05:48 Blood - Venous Blood Culture - Preliminary No growth after 24 hours. 08/17/21 05:48 Blood - Venous Blood Culture - Preliminary No growth after 24 hours. 08/14/21 23:17 Sputum - Induced Gram Stain - Final 08/14/21 23:17 Sputum - Induced Sputum Culture - Final 08/13/21 08:09 Blood - Venous Blood Culture - Final Staphylococcus aureus 08/13/21 08:09 Blood - Venous Blood Culture - Final Staphylococcus aureus 08/11/21 01:50 Blood - Venous Blood Culture - Final Staphylococcus aureus 08/11/21 01:50 Blood - Venous Blood Culture - Final Staphylococcus aureus Procedures Date of Service Date of Service: 08/18/21 Assessment & Plan Assessment and plan (1) Hypernatremia: Status: Acute Assessment and Plan: #) Acute kidney injury due to tubular injury superimposed on chronic kidney disease Had adequate diuresis with supportive care. No indication for renal replacement today Hold diuretics today. Provide FW replacement with D5W ~ 3L deficit. Re-evaluate diuretics in am in order to maintain I=O. Hyperphosphatemia. Binder/powder added. (2) CKD (chronic kidney disease) stage 3, GFR 30-59 ml/min: Status: Acute (3) Acute kidney injury: Status: Acute Time Spent With Patient Time: Total time spent is greater than 50% in coordination of care (as documented) at patient's floor/unit and/or counseling patient: Progress Note: Quality Stroke Does the patient have a stroke diagnosis?: No
[2021-08-18] MEDS: Lactulose 20 GM/30 ML SOLUTION 40 GM G-TUBE (20:29)
[2021-08-18] MEDS: Atorvastatin Calcium 40 MG TABLET PO (20:29)
[2021-08-18] MEDS: Albumin Human 25 % 100 ML IV ×2 (21:05→21:59)
[2021-08-18 23:44] LABS: Glucose, Whole Blood 410 mg/dL (60-115)
[2021-08-19] VITALS (36 sets, daily range): BP systolic 100–149; BP diastolic 42–70; PULSE 58–73; RESP 11–20; TEMP 34.6–36.1; O2SAT 89–97; BMI 35.5
[2021-08-19] MEDS: Insulin Lispro 100 UNIT/ML 3 ML VIAL 15 UNIT SUBCUT (00:02)
[2021-08-19] MEDS: propofoL 1,000 MG/100 ML VIAL 16.87 MG IVCONT ×5 (01:16→20:13)
[2021-08-19 02:51] LABS: Glucose, Whole Blood 468 mg/dL (60-115)
[2021-08-19] MEDS: Dextrose 5 % 1,000 ML 50 ML IVCONT (02:52)
[2021-08-19] MEDS: Insulin Lispro 100 UNIT/ML 3 ML VIAL 10 UNIT SUBCUT (03:05)
[2021-08-19] MEDS: Insulin Regular, Human 100 UNIT/ML 3 ML VIAL IVPUSH (03:05)
[2021-08-19 05:29] LABS: VBG Base Excess -2.7 mmol/L; VBG HCO3 22 mmol/L (22-26); VBG pCO2 37 mmHg; VBG pH 7.37 (7.32-7.43); VBG pO2 57 mmHg
[2021-08-19 05:35] LABS: Venous Blood Gas Refer to POC result
[2021-08-19 05:39] LABS: Basophils Percent Auto 0.1 % (0-2); Eosinophils Percent Auto 0.2 % (0-4); Imm Gran Pct Auto 0.8 % (0.0-0.4); Lymphocytes Absolute Auto 0.8 X10*3/uL (1.2-4.9); Lymphocytes Percent Auto 6.5 % (20-40); MANUAL DIFF FLAG SCAN; Mean Corpuscular HGB Conc 32.5 g/dl (31.0-36.0); Mean Corpuscular Volume 92.1 fL (80.0-98.0); Monocytes Absolute Auto 0.3 X10*3/uL (0.1-1.2); Monocytes Percent Auto 2.2 % (2-11); Neutrophils Absolute Auto 11.3 x10*3/uL (2.0-8.3); Neutrophils Percent Auto 90.2 % (45-73); Red Blood Count 2.27 X10*6/uL (4.60-5.80); Red Cell Distribution Width 16.9 % (11.0-16.0); SCAN SMEAR FLAG 1; White Blood Count 12.6 X10*3/uL (4.8-10.8)
[2021-08-19 05:40] LABS: Glucose, Whole Blood 411 mg/dL (60-115)
[2021-08-19 05:40] LABS: Platelet Count 23 X10*3/uL (160-400)
[2021-08-19 05:42] LABS: Hematocrit 20.9 % (42.0-52.0); Hemoglobin 6.8 g/dl (14.0-18.0)
[2021-08-19] MEDS: Insulin Regular, Human 100 UNIT/ML 3 ML VIAL 10 UNIT IVPUSH (05:47)
[2021-08-19 05:50] LABS: INTERNATIONAL NORM RATIO 1.6 (0.9-1.1)
[2021-08-19 05:52] LABS: Partial Thromboplastin Time 41.3 SEC (24.1-38.0)
[2021-08-19 05:59] LABS: SLIDE REVIEW VERIFIED
[2021-08-19 06:04] LABS: Alanine Aminotransferase 8 U/L (0-40); Alkaline Phosphatase 90 U/L (39-117); Anion Gap 18 (12-20); Aspartate Amino Transferase 42 U/L (5-37); Bilirubin Direct 1.9 mg/dL (0.0-0.5); Bilirubin Total 2.8 mg/dL (0.0-1.0); Calcium 7.6 mg/dL (8.4-10.2); Carbon Dioxide 21 mmol/L (22-29); Chloride 112 mmol/L (96-108); Creatinine Clr Calc Pharmacy 34.2; Estimated Glomerular Filt Rate 27; Glucose Random 543 mg/dL (60-115); Magnesium 2.5 mg/dL (1.6-2.6); Phosphorus 6.2 mg/dL (2.7-4.5); Potassium 3.6 mmol/L (3.3-5.1); Sodium 147 mmol/L (135-145); Total Protein 7.6 g/dL (6.5-8.0)
[2021-08-19 07:02] LABS: Fibrinogen 264 MG/DL (259-690)
[2021-08-19 07:07] LABS: Blood Urea Nitrogen 131 mg/dL (9-16); Lactate Dehydrogenase 345 U/L (118-273)
--- NOTE | 2021-08-19 09:24 | MHC.SHP ---
Pre-Procedural Eval Section A Date of Service: 08/19/21 The patient is an INPATIENT: Yes Section B Chief Complaint: new onset atrial fibrillation moni Allergies: Allergies Allergy/AdvReac Type Severity Reaction Status Date / Time FRESH FRUIT Allergy Unknown ITCHY EARS Uncoded 06/03/21 10:48 THROAT Sesonal allergies Allergy Unknown itchiness Uncoded 06/03/21 10:48 some fresh fruit Allergy Unknown itchiness Uncoded 06/03/21 10:48 Plan I have reviewed the history and physical and performed a pertinent physical examination on my patient. No changes have occurred unless specified.
--- NOTE | 2021-08-19 09:24 | PM.OP ---
Brief Operative Note Date of Service: 08/19/21 Pre-op diagnosis: DAH Post-op diagnosis: same Procedure: bronchoscopy with BAL, washings, endobronchial biopsy Surgeon: Sanchez Wills MD Anesthesia: GETA Was an Geospatial Program Management Officer used for this Procedure?: No Estimated blood loss (mL): 10 Pathology: other (RLL biopsies) Condition: critical Disposition: ICU
[2021-08-19] MEDS: Chlorhexidine Gluc Oral Rinse 15 ML MOUTHWASH BUCCAL ×3 (10:26→20:13)
[2021-08-19] MEDS: methylPREDNISolone Sod Succ 1,000 MG in 0.9 % Sodium Chloride 50 ML 66 MG IV (10:27)
[2021-08-19] MEDS: Lidocaine 4 % Patch ADH..PATCH 1 PATCH TRANSDERMA (10:27)
[2021-08-19] MEDS: Sodium Bicarbonate 650 MG TABLET G-TUBE ×3 (10:28→20:13)
[2021-08-19] MEDS: Thiamine HCL 100 MG TABLET PO (10:28)
[2021-08-19 12:16] LABS: Glucose, Whole Blood 377 mg/dL (60-115)
[2021-08-19] MEDS: Sevelamer Carbonate Powder 800 MG POWD.PACK PO ×2 (12:18→16:54)
[2021-08-19] MEDS: Insulin Lispro 100 UNIT/ML 3 ML VIAL SUBCUT ×2 (12:18→18:19)
--- NOTE | 2021-08-19 12:43 | P.PNCC_ITS ---
Subjective Subjective Date of Service: 08/19/21 Interval History: 66-year-old male presents with some mechanical falls noted to be rapid atrial fibrillation acute on chronic renal insufficiency underlying type 2 diabetes with bilateral Charcot joint changes of his feet and developed a progressive agitation some degree of altered mental status and acute hypoxic respiratory failure ventrally requiring sedation and intubation currently displays features of diffuse alveolar hemorrhage noted also on CT scan and status post bronchoscopy today developed a a.m. a per per a like rash which was biopsied and also pending sed rate is greater than 100 he also has 5/5 blood cultures positive for methicillin sensitive Staph aureus and he has been on treatment for that and the question is whether not this is a truly vasculitic process including the combined renal and respiratory failure and also is significantly anemic and thrombocytopenic and worsening requiring transfusion of both red pro ls and platelets today but we have yet to see our hematology consult that we had requested and following the the bronchoscopy a got his 1st dose of high-dose steroid today as we await the pathology and I if arrange now for renal to proceed with a renal biopsy Critical Care Time (minutes): 45 Physical Exam Vital Signs: Vital Signs: Last Vital Signs Temp 96.4 F L 08/19/21 12:33 Pulse 68 08/19/21 12:33 Resp 11 L 08/19/21 12:33 BP 144/69 H 08/19/21 12:33 Pulse Ox 93 08/19/21 12:00 O2 Del Method 08/19/21 12:00 O2 Flow Rate 55 08/14/21 22:00 FiO2 60 08/19/21 12:10 BMI result Body Mass Index 35.5 Unchanged status since yesterday sedated intubated but does give you the sense that he hears and understands voices in the room Bedside echo with preserved LV function Abdomen soft with no organomegaly tolerating feedings Chest without accessory muscle use or diaphragmatic effort Skin with diffuse purpura including the dorsum and the sole of his right foot trunk and lower extremities Objective Data Labs CBC & Chem 7: 08/19/21 05:15 08/19/21 05:15 Labs: Laboratory Results - last 24 hr 08/13/21 08/18/21 08/18/21 08:09 17:51 23:41 WBC RBC Hgb Hct MCV MCH MCHC RDW Plt Count MPV Immature Gran % (Auto) Neut % (Auto) Lymph % (Auto) [place] % (Auto) Eos % (Auto) Baso % (Auto) Lymph # (Auto) [place] # (Auto) Eos # (Auto) Baso # (Auto) Abs Immat Gran (auto) Absolute Neuts (auto) Absolute Nucleated RBC Nucleated RBC % (auto) Smear Tech's Comments Smear Path Review PT INR APTT Fibrinogen VBG pH VBG pCO2 VBG pO2 VBG HCO3 VBG O2 Saturation VBG Base Excess Sodium Potassium Chloride Carbon Dioxide Anion Gap BUN Creatinine Estim Creat Clear Calc Estimated GFR POC Glucose 302 H 410 H* Random Glucose Calcium Phosphorus Magnesium Total Bilirubin Direct Bilirubin AST ALT Alkaline Phosphatase Lactate Dehydrogenase Total Protein Albumin Anti-Smooth Muscle Ab <20 Blood Type Antibody Screen JEFF, Polyspecific Positive JEFF Work-up Crossmatch 08/19/21 08/19/21 08/19/21 02:46 05:15 05:15 WBC 12.6 H RBC 2.27 L Hgb 6.8 L* Hct 20.9 L* MCV 92.1 MCH 30.0 MCHC 32.5 RDW 16.9 H Plt Count 23 L D MPV 12.0 Immature Gran % (Auto) 0.8 H Neut % (Auto) 90.2 H Lymph % (Auto) 6.5 L [place] % (Auto) 2.2 Eos % (Auto) 0.2 Baso % (Auto) 0.1 Lymph # (Auto) 0.8 L [place] # (Auto) 0.3 Eos # (Auto) 0.0 Baso # (Auto) 0.0 Abs Immat Gran (auto) 0.10 H Absolute Neuts (auto) 11.3 H Absolute Nucleated RBC 0.000 Nucleated RBC % (auto) 0.0 Smear Tech's Comments VERIFIED Smear Path Review SEE NOTE PT 18.0 H INR 1.6 H APTT 41.3 H Fibrinogen 264 VBG pH VBG pCO2 VBG pO2 VBG HCO3 VBG O2 Saturation VBG Base Excess Sodium Potassium Chloride Carbon Dioxide Anion Gap BUN Creatinine Estim Creat Clear Calc Estimated GFR POC Glucose 468 H* Random Glucose Calcium Phosphorus Magnesium Total Bilirubin Direct Bilirubin AST ALT Alkaline Phosphatase Lactate Dehydrogenase Total Protein Albumin Anti-Smooth Muscle Ab Blood Type Antibody Screen JEFF, Polyspecific Positive JEFF Work-up Crossmatch 08/19/21 08/19/21 08/19/21 05:15 05:24 05:37 WBC RBC Hgb Hct MCV MCH MCHC RDW Plt Count MPV Immature Gran % (Auto) Neut % (Auto) Lymph % (Auto) [place] % (Auto) Eos % (Auto) Baso % (Auto) Lymph # (Auto) [place] # (Auto) Eos # (Auto) Baso # (Auto) Abs Immat Gran (auto) Absolute Neuts (auto) Absolute Nucleated RBC Nucleated RBC % (auto) Smear Tech's Comments Smear Path Review PT INR APTT Fibrinogen VBG pH 7.37 VBG pCO2 37 VBG pO2 57 VBG HCO3 22 VBG O2 Saturation 81.0 VBG Base Excess -2.7 Sodium 147 H Potassium 3.6 Chloride 112 H Carbon Dioxide 21 L Anion Gap 18 BUN 131 H Creatinine 2.40 H Estim Creat Clear Calc 34.2 Estimated GFR 27 POC Glucose 411 H* Random Glucose 543 H* Calcium 7.6 L Phosphorus 6.2 H Magnesium 2.5 Total Bilirubin 2.8 H Direct Bilirubin 1.9 H AST 42 H ALT 8 Alkaline Phosphatase 90 Lactate Dehydrogenase 345 H Total Protein 7.6 Albumin 3.0 L Anti-Smooth Muscle Ab Blood Type Antibody Screen JEFF, Polyspecific Positive JEFF Work-up Crossmatch 08/19/21 08/19/21 06:12 12:10 WBC RBC Hgb Hct MCV MCH MCHC RDW Plt Count MPV Immature Gran % (Auto) Neut % (Auto) Lymph % (Auto) [place] % (Auto) Eos % (Auto) Baso % (Auto) Lymph # (Auto) [place] # (Auto) Eos # (Auto) Baso # (Auto) Abs Immat Gran (auto) Absolute Neuts (auto) Absolute Nucleated RBC Nucleated RBC % (auto) Smear Tech's Comments Smear Path Review PT INR APTT Fibrinogen VBG pH VBG pCO2 VBG pO2 VBG HCO3 VBG O2 Saturation VBG Base Excess Sodium Potassium Chloride Carbon Dioxide Anion Gap BUN Creatinine Estim Creat Clear Calc Estimated GFR POC Glucose 377 H* Random Glucose Calcium Phosphorus Magnesium Total Bilirubin Direct Bilirubin AST ALT Alkaline Phosphatase Lactate Dehydrogenase Total Protein Albumin Anti-Smooth Muscle Ab Blood Type A Positive Antibody Screen NEGATIVE JEFF, Polyspecific NEGATIVE Positive JEFF Work-up TNP Crossmatch See Detail Microbiology Microbiology Results: Microbiology 08/19/21 08:37 Washing - Bronchial Gram Stain - Final 08/18/21 23:22 Foot Left Gram Stain - Final 08/17/21 05:48 Blood - Venous Blood Culture - Preliminary No growth after 48 hours. 08/17/21 05:48 Blood - Venous Blood Culture - Preliminary No growth after 48 hours. 08/15/21 05:22 Blood - Venous Blood Culture - Final Staphylococcus aureus 08/15/21 05:22 Blood - Venous Blood Culture - Final Staphylococcus aureus 08/14/21 23:17 Sputum - Induced Gram Stain - Final 08/14/21 23:17 Sputum - Induced Sputum Culture - Final 08/13/21 08:09 Blood - Venous Blood Culture - Final Staphylococcus aureus 08/13/21 08:09 Blood - Venous Blood Culture - Final Staphylococcus aureus 08/11/21 01:50 Blood - Venous Blood Culture - Final Staphylococcus aureus 08/11/21 01:50 Blood - Venous Blood Culture - Final Staphylococcus aureus Progress Note: A&P Assessment and plan (1) Palpable purpura: Status: Acute (2) Hypernatremia: Status: Acute (3) Pneumonia: Status: Acute (4) Hemoptysis: Status: Acute (5) Thrombocytopenia: Status: Acute (6) SOB (shortness of breath): Status: Acute (7) MSSA bacteremia: Status: Acute (8) Fall: Status: Acute (9) Acute hyponatremia: Status: Acute (10) Acute kidney injury: Status: Acute (11) Chronic kidney disease: Status: Acute (12) Atrial fibrillation, new onset: Status: Acute (13) 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: Status: Acute (14) Hyperlipidemia LDL goal <70: Status: Acute (15) Obesity (BMI 30-39.9): Status: Acute (16) CKD (chronic kidney disease) stage 3, GFR 30-59 ml/min: Status: Acute (17) Other and unspecified hyperlipidemia: Status: Acute (18) Type 2 diabetes mellitus with hyperglycemia, with long-term current use of insulin: Status: Acute (19) Type 2 diabetes mellitus with chronic kidney disease: Status: Acute (20) Essential hypertension: Status: Acute Plan Plan is to go ahead with renal biopsy as we await the other tissue continue with high-dose steroids until then and continue of course the 1st treatment for the Staph bacteremia Quality Stroke Does the patient have a stroke diagnosis?: No VTE Prior VTE?: No VTE Risk Level:: Medical - moderate - high VTE Device Contraindication: Treatment Not Indicated VTE Drug Contraindication: N/A - Med Ordered
[2021-08-19 13:57] LABS: Complement C3 30 mg/dL (82-185)
[2021-08-19 14:58] LABS: Eosinophils Percent Auto 0.1 % (0-4); Imm Gran Abs Auto 0.13 X10*3/uL (0.00-0.03); Imm Gran Pct Auto 0.9 % (0.0-0.4); Lymphocytes Absolute Auto 0.6 X10*3/uL (1.2-4.9); Lymphocytes Percent Auto 4.1 % (20-40); MANUAL DIFF FLAG SCAN; Mean Corpuscular HGB Conc 32.7 g/dl (31.0-36.0); Mean Corpuscular Hemoglobin 30.2 pg (27.0-33.0); Mean Corpuscular Volume 92.5 fL (80.0-98.0); Mean Platelet Volume 12.4 fL (9.4-12.4); Monocytes Absolute Auto 0.2 X10*3/uL (0.1-1.2); Monocytes Percent Auto 1.5 % (2-11); NRBC Pct Auto 0.3 /100WBC (0.0-0.2); Neutrophils Absolute Auto 13.8 x10*3/uL (2.0-8.3); Neutrophils Percent Auto 93.4 % (45-73); Red Blood Count 2.81 X10*6/uL (4.60-5.80); Red Cell Distribution Width 16.6 % (11.0-16.0); SCAN SMEAR FLAG 1; White Blood Count 14.8 X10*3/uL (4.8-10.8)
[2021-08-19 15:01] LABS: Platelet Count 45 X10*3/uL (160-400)
[2021-08-19 15:02] LABS: Hemoglobin 8.5 g/dl (14.0-18.0)
[2021-08-19 15:21] LABS: SLIDE REVIEW VERIFIED
[2021-08-19] MEDS: 0.9 % Sodium Chloride Flush 3 ML SYRINGE IVFLUSH ×2 (16:54→23:41)
[2021-08-19] MEDS: Lactulose 20 GM/30 ML SOLUTION 40 GM G-TUBE (17:07)
--- NOTE | 2021-08-19 17:39 | PM.PNNEP ---
Subjective Subjective Date of Service: 08/19/21 Principal diagnosis: AF Interval history: CHart Reviewed. Events noted. Physical Exam Vital Signs: Vital Signs: Last Vital Signs Temp 97 F 08/19/21 16:00 Pulse 71 08/19/21 17:00 Resp 14 08/19/21 17:00 BP 141/60 H 08/19/21 17:00 Pulse Ox 97 08/19/21 17:00 O2 Del Method 08/19/21 17:00 O2 Flow Rate 55 08/14/21 22:00 FiO2 60 08/19/21 17:00 BMI result Body Mass Index 35.5 Const: General: no acute distress HEENT: Head: Yes normocephalic and Yes atraumatic Neck: Neck: Yes no JVD Resp: Auscultation: crackles Cardio: Jugular venous distension: no JVD Rate: regular rate Rhythm: regular rhythm Heart sounds: S1 normal heart sound present and S2 normal heart sound present GI: Auscultation: normal bowel sounds Skin: General skin exam: petechiae and purpura Neuro: Other: sedated Extrem: General: Yes edema Right upper extremity: edema Left upper extremity: edema Objective Data Labs CBC & Chem 7: 08/19/21 14:47 08/19/21 05:15 Labs: Laboratory Results - last 24 hr 08/18/21 08/18/21 08/18/21 08:48 17:51 23:41 WBC RBC Hgb Hct MCV MCH MCHC RDW Plt Count MPV Immature Gran % (Auto) Neut % (Auto) Lymph % (Auto) [place] % (Auto) Eos % (Auto) Baso % (Auto) Lymph # (Auto) [place] # (Auto) Eos # (Auto) Baso # (Auto) Abs Immat Gran (auto) Absolute Neuts (auto) Absolute Nucleated RBC Nucleated RBC % (auto) Smear Tech's Comments Smear Path Review PT INR APTT Fibrinogen VBG pH VBG pCO2 VBG pO2 VBG HCO3 VBG O2 Saturation VBG Base Excess Sodium Potassium Chloride Carbon Dioxide Anion Gap BUN Creatinine Estim Creat Clear Calc Estimated GFR POC Glucose 302 H 410 H* Random Glucose Calcium Phosphorus Magnesium Total Bilirubin Direct Bilirubin AST ALT Alkaline Phosphatase Lactate Dehydrogenase Total Protein Albumin Complement C3 30 L Complement C4 10 L Blood Type Antibody Screen JEFF, Polyspecific Positive JEFF Work-up Crossmatch 08/19/21 08/19/21 08/19/21 02:46 05:15 05:15 WBC 12.6 H RBC 2.27 L Hgb 6.8 L* Hct 20.9 L* MCV 92.1 MCH 30.0 MCHC 32.5 RDW 16.9 H Plt Count 23 L D MPV 12.0 Immature Gran % (Auto) 0.8 H Neut % (Auto) 90.2 H Lymph % (Auto) 6.5 L [place] % (Auto) 2.2 Eos % (Auto) 0.2 Baso % (Auto) 0.1 Lymph # (Auto) 0.8 L [place] # (Auto) 0.3 Eos # (Auto) 0.0 Baso # (Auto) 0.0 Abs Immat Gran (auto) 0.10 H Absolute Neuts (auto) 11.3 H Absolute Nucleated RBC 0.000 Nucleated RBC % (auto) 0.0 Smear Tech's Comments VERIFIED Smear Path Review SEE NOTE PT 18.0 H INR 1.6 H APTT 41.3 H Fibrinogen 264 VBG pH VBG pCO2 VBG pO2 VBG HCO3 VBG O2 Saturation VBG Base Excess Sodium Potassium Chloride Carbon Dioxide Anion Gap BUN Creatinine Estim Creat Clear Calc Estimated GFR POC Glucose 468 H* Random Glucose Calcium Phosphorus Magnesium Total Bilirubin Direct Bilirubin AST ALT Alkaline Phosphatase Lactate Dehydrogenase Total Protein Albumin Complement C3 Complement C4 Blood Type Antibody Screen JEFF, Polyspecific Positive JEFF Work-up Crossmatch 08/19/21 08/19/21 08/19/21 05:15 05:24 05:37 WBC RBC Hgb Hct MCV MCH MCHC RDW Plt Count MPV Immature Gran % (Auto) Neut % (Auto) Lymph % (Auto) [place] % (Auto) Eos % (Auto) Baso % (Auto) Lymph # (Auto) [place] # (Auto) Eos # (Auto) Baso # (Auto) Abs Immat Gran (auto) Absolute Neuts (auto) Absolute Nucleated RBC Nucleated RBC % (auto) Smear Tech's Comments Smear Path Review PT INR APTT Fibrinogen VBG pH 7.37 VBG pCO2 37 VBG pO2 57 VBG HCO3 22 VBG O2 Saturation 81.0 VBG Base Excess -2.7 Sodium 147 H Potassium 3.6 Chloride 112 H Carbon Dioxide 21 L Anion Gap 18 BUN 131 H Creatinine 2.40 H Estim Creat Clear Calc 34.2 Estimated GFR 27 POC Glucose 411 H* Random Glucose 543 H* Calcium 7.6 L Phosphorus 6.2 H Magnesium 2.5 Total Bilirubin 2.8 H Direct Bilirubin 1.9 H AST 42 H ALT 8 Alkaline Phosphatase 90 Lactate Dehydrogenase 345 H Total Protein 7.6 Albumin 3.0 L Complement C3 Complement C4 Blood Type Antibody Screen JEFF, Polyspecific Positive JEFF Work-up Crossmatch 08/19/21 08/19/21 08/19/21 06:12 12:10 14:47 WBC 14.8 H RBC 2.81 L D Hgb 8.5 L D Hct 26.0 L D MCV 92.5 MCH 30.2 MCHC 32.7 RDW 16.6 H Plt Count 45 L D MPV 12.4 Immature Gran % (Auto) 0.9 H Neut % (Auto) 93.4 H Lymph % (Auto) 4.1 L [place] % (Auto) 1.5 L Eos % (Auto) 0.1 Baso % (Auto) 0.0 Lymph # (Auto) 0.6 L [place] # (Auto) 0.2 Eos # (Auto) 0.0 Baso # (Auto) 0.0 Abs Immat Gran (auto) 0.13 H Absolute Neuts (auto) 13.8 H Absolute Nucleated RBC 0.040 H Nucleated RBC % (auto) 0.3 H Smear Tech's Comments VERIFIED Smear Path Review PT INR APTT Fibrinogen VBG pH VBG pCO2 VBG pO2 VBG HCO3 VBG O2 Saturation VBG Base Excess Sodium Potassium Chloride Carbon Dioxide Anion Gap BUN Creatinine Estim Creat Clear Calc Estimated GFR POC Glucose 377 H* Random Glucose Calcium Phosphorus Magnesium Total Bilirubin Direct Bilirubin AST ALT Alkaline Phosphatase Lactate Dehydrogenase Total Protein Albumin Complement C3 Complement C4 Blood Type A Positive Antibody Screen NEGATIVE JEFF, Polyspecific NEGATIVE Positive JEFF Work-up TNP Crossmatch See Detail Microbiology Microbiology Results: Microbiology 08/19/21 08:37 Washing - Bronchial Gram Stain - Final 08/18/21 23:22 Foot Left Gram Stain - Final 08/17/21 05:48 Blood - Venous Blood Culture - Preliminary No growth after 48 hours. 08/17/21 05:48 Blood - Venous Blood Culture - Preliminary No growth after 48 hours. 08/15/21 05:22 Blood - Venous Blood Culture - Final Staphylococcus aureus 08/15/21 05:22 Blood - Venous Blood Culture - Final Staphylococcus aureus 08/14/21 23:17 Sputum - Induced Gram Stain - Final 08/14/21 23:17 Sputum - Induced Sputum Culture - Final 08/13/21 08:09 Blood - Venous Blood Culture - Final Staphylococcus aureus 08/13/21 08:09 Blood - Venous Blood Culture - Final Staphylococcus aureus 08/11/21 01:50 Blood - Venous Blood Culture - Final Staphylococcus aureus 08/11/21 01:50 Blood - Venous Blood Culture - Final Staphylococcus aureus Procedures Date of Service Date of Service: 08/19/21 Assessment & Plan Assessment and plan (1) Palpable purpura: Status: Acute (2) Acute kidney injury: Status: Acute Assessment and Plan: #) Acute kidney injury due to tubular injury superimposed on chronic kidney disease Had adequate diuresis with supportive care. No indication for renal replacement today Provide FW replacement with D5W ~ 3L deficit. Prn loop diuretics ok to maintain I=O. Hyperphosphatemia. Binder/powder added. Noted moni, anemia, c3/c4 low complements, purpura noted on skin exam. Discussed renal biopsy with icu attending and will plan for tomorrow. US guided renal biopsy ordered. Time Spent With Patient Time: Total time spent is greater than 50% in coordination of care (as documented) at patient's floor/unit and/or counseling patient: Progress Note: Quality Stroke Does the patient have a stroke diagnosis?: No
[2021-08-19 17:51] LABS: Glucose, Whole Blood 411 mg/dL (60-115)
[2021-08-19 18:52] LABS: Total Protein Urine Random 64 mg/dL (<12)
[2021-08-19] MEDS: Atorvastatin Calcium 40 MG TABLET PO (20:13)
[2021-08-19 23:38] LABS: Glucose, Whole Blood 483 mg/dL (60-115)
[2021-08-19] MEDS: ceFAZolin Sodium/Dextrose,Iso 2 GM/50 ML PIGGYBACK IV (23:46)
[2021-08-19] MEDS: Insulin Regular, Human 100 UNIT/ML 3 ML VIAL 20 UNIT IVPUSH (23:53)
[2021-08-20] VITALS (36 sets, daily range): BP systolic 109–155; BP diastolic 41–75; PULSE 55–84; RESP 10–22; TEMP 34.3–36.2; O2SAT 62–99; BMI 35.4
[2021-08-20] MEDS: propofoL 1,000 MG/100 ML VIAL 16.87 MG IVCONT ×3 (00:06→20:05)
[2021-08-20 00:43] LABS: Glucose, Whole Blood 430 mg/dL (60-115)
[2021-08-20] MEDS: Insulin Lispro 100 UNIT/ML 3 ML VIAL SUBCUT (00:45)
[2021-08-20] MEDS: Sodium Bicarbonate 650 MG TABLET G-TUBE ×2 (01:01→15:37)
[2021-08-20] MEDS: Insulin Regular/NS 100 UNIT/100 ML PLAST..BAG 10 UNIT IVCONT (03:40)
[2021-08-20 04:23] LABS: Glucose, Whole Blood 447 mg/dL (60-115)
[2021-08-20 04:23] LABS: VBG Base Excess -2.8 mmol/L; VBG HCO3 22 mmol/L (22-26); VBG pCO2 39 mmHg; VBG pH 7.35 (7.32-7.43); VBG pO2 65 mmHg
[2021-08-20 04:23] LABS: Glucose, Whole Blood 473 mg/dL (60-115)
[2021-08-20 04:23] LABS: Glucose, Whole Blood 505 mg/dL (60-115)
[2021-08-20 04:26] LABS: Venous Blood Gas Refer to POC result
[2021-08-20 04:38] LABS: Basophils Percent Auto 0.1 % (0-2); Hematocrit 25.9 % (42.0-52.0); Hemoglobin 8.5 g/dl (14.0-18.0); Imm Gran Abs Auto 0.07 X10*3/uL (0.00-0.03); Imm Gran Pct Auto 0.7 % (0.0-0.4); Lymphocytes Absolute Auto 0.5 X10*3/uL (1.2-4.9); Lymphocytes Percent Auto 4.3 % (20-40); MANUAL DIFF FLAG SCAN; Mean Corpuscular HGB Conc 32.8 g/dl (31.0-36.0); Mean Corpuscular Hemoglobin 30.5 pg (27.0-33.0); Mean Corpuscular Volume 92.8 fL (80.0-98.0); Mean Platelet Volume 13.9 fL (9.4-12.4); Monocytes Absolute Auto 0.1 X10*3/uL (0.1-1.2); NRBC Pct Auto 0.2 /100WBC (0.0-0.2); Neutrophils Absolute Auto 9.8 x10*3/uL (2.0-8.3); Neutrophils Percent Auto 93.9 % (45-73); Red Blood Count 2.79 X10*6/uL (4.60-5.80); Red Cell Distribution Width 16.8 % (11.0-16.0); SCAN SMEAR FLAG 1; White Blood Count 10.5 X10*3/uL (4.8-10.8)
[2021-08-20 04:39] LABS: PLT ABN DIST 1; Platelet Count 36 X10*3/uL (160-400)
--- NOTE | 2021-08-20 04:52 | PC.NURSE ---
CARE ASSUMED 23:15..REMAINS TUBED/VENTED...PROPOFOL/LEVOPHED DRIPS PER APR..REMAINS WITH BLOODY SECRETIONS VIA ETT...TUBE FEEDS HELD PER CPOE PREOP ORDER...NSR..HR 60'S...GLUCOSE LEVELS REMAIN ELEVATED...RECEIVED PULSE STEROID THERAPY 08/19 (SOLUMEDROL 1000mg IV)...poc 483 2335...insulin 20 units iv given..poc 430 0040...lispro insulin 15 units sc per icu pa...03:30 [id number]..STARTED INSULIN DRIP 10 UNITS/HR 0340 PER ICU PA DURING SYSTEM DOWN-TIME...AM LABS DRAWN 4AM PER PA AND PENDING
[2021-08-20 05:06] LABS: Glucose, Whole Blood 480 mg/dL (60-115)
[2021-08-20 05:19] LABS: Alanine Aminotransferase 9 U/L (0-40); Albumin Level 2.8 g/dL (3.5-5.0); Alkaline Phosphatase 94 U/L (39-117); Anion Gap 18 (12-20); Aspartate Amino Transferase 42 U/L (5-37); Bilirubin Direct 1.8 mg/dL (0.0-0.5); Bilirubin Total 2.7 mg/dL (0.0-1.0); Calcium 7.7 mg/dL (8.4-10.2); Carbon Dioxide 21 mmol/L (22-29); Chloride 111 mmol/L (96-108); Creatinine Clr Calc Pharmacy 35.2; Estimated Glomerular Filt Rate 27; Glucose Random 594 mg/dL (60-115); Magnesium 2.8 mg/dL (1.6-2.6); Phosphorus 6.2 mg/dL (2.7-4.5); Potassium 3.7 mmol/L (3.3-5.1); Sodium 146 mmol/L (135-145)
[2021-08-20 05:23] LABS: SLIDE REVIEW VERIFIED
[2021-08-20 05:24] LABS: INTERNATIONAL NORM RATIO 1.5 (0.9-1.1); Prothrombin Time 17.6 SEC (10.0-13.1)
[2021-08-20 05:26] LABS: Partial Thromboplastin Time 39.1 SEC (24.1-38.0)
[2021-08-20 05:31] LABS: Blood Urea Nitrogen 143 mg/dL (9-16)
[2021-08-20 06:09] LABS: Glucose, Whole Blood 448 mg/dL (60-115)
[2021-08-20] MEDS: Lactated Ringers 1,000 ML 50 ML IVCONT (06:36)
[2021-08-20 07:05] LABS: Glucose, Whole Blood 376 mg/dL (60-115)
[2021-08-20] MEDS: Insulin Regular/NS 100 UNIT/100 ML PLAST..BAG 20 UNIT IVCONT (08:00)
[2021-08-20 08:08] LABS: Glucose, Whole Blood 358 mg/dL (60-115)
[2021-08-20] MEDS: Chlorhexidine Gluc Oral Rinse 15 ML MOUTHWASH BUCCAL ×3 (08:14→20:06)
[2021-08-20] MEDS: Insulin Glargine,Hum.rec.anlog 100 UNIT/ML 10 ML VIAL 20 UNIT SUBCUT (08:14)
[2021-08-20] MEDS: Lidocaine 4 % Patch ADH..PATCH 1 PATCH TRANSDERMA (08:16)
[2021-08-20 08:23] LABS: EOS Counted 0 CELLS; EOS QC POS YES; EOS Stain Quality OK YES; WBC, Counted 0 CELLS
--- NOTE | 2021-08-20 08:59 | MHC.CLN ---
Addendum entered by Linda Cheng, RD 08/20/21 09:38: DISCUSSED AT ROUND WITH ROYAL AND PT PROCEDURE POSTPONED UNTIL TOMORROW RE-STARTING TF NEPRO AT MAX GOAL OF 35ML/HR (SEE BELOW) Original Note: F/U PT REMAINS INTUBATED AND SEDATED PT IS CURRENTLY NPO FOR SCHEDULED PROCEDURE WHEN TF TO RE-START RECOMMEND NEPRO AT MAX GOAL RATE 35ML/HR WITH 300ML FREE WATER FLUSHES Q 4 HRS TO PROVIDE 1512KCALS (1957KCALS WITH SEDATION; 25KCALS/KG), 68G PROTEIN (.8G/KG), 2410ML TOTAL WATER FROM FORMULA AND FLUSHES (30.5ML/KG) MONITOR TOLERANCE, RESIDUALS AND LYTES
[2021-08-20 09:05] LABS: Glucose, Whole Blood 334 mg/dL (60-115)
[2021-08-20] MEDS: methylPREDNISolone Sod Succ 1,000 MG in 0.9 % Sodium Chloride 50 ML 66 MG IV (09:08)
[2021-08-20] MEDS: 0.9 % Sodium Chloride Flush 3 ML SYRINGE IVFLUSH ×3 (09:14→23:58)
--- NOTE | 2021-08-20 09:54 | OP_ITS ---
SURGEON: Sanchez Wills MD PREOPERATIVE DIAGNOSIS: Hemoptysis, question diffuse alveolar hemorrhage. POSTOPERATIVE DIAGNOSIS: Diffuse alveolar hemorrhage. PROCEDURE PERFORMED: ESTIMATED BLOOD LOSS: There was already spontaneous bleeding about 10 mL. No epinephrine was used, but iced saline was administered with the washings. COMPLICATIONS: None. ANESTHESIA: Patient was already intubated and on sedation. The consent was obtained from the patient's older daughter. He is not legally . There was a question of a proxy that was done with his sister, but the proxy paperwork cannot be located at this time. Therefore, the next of kin will be the older daughter Angelita Del Toro. She understands the risks and the benefits of the procedure and she consented to pursue the bronchoscopy. ASSISTANTS: SPECIMENS: ASA CLASSIFICATION: 4. INTERPRETATION: 1. Evidence of diffuse alveolar hemorrhage based on BL and also direct inspection of the airways. 2. Status post biopsy of endobronchial lesion in the right lower lobe. No evidence of any bleeding after the biopsy. DESCRIPTION OF PROCEDURE: After the patient was comfortable, his ventilator was placed on 100%, alarms were turned off. The bronchoscope was navigated through the ET tube to the level of the main prince. There were some blood clots already of the main prince noted. There was also some evidence of bleeding around the endotracheal tube. The bronchoscope was navigated to the entire tracheobronchial tree but some slight irregularity to the right lower lobe mucosa what appeared to be some ulceration but not actively bleeding. Otherwise, no other endobronchial lesions noted. The patient was oozing frothy looking blood from the right upper lobe, also the right middle lobe, superior segment, the lingula, and also the left lower lobe area. Those areas were washed out and additional frothy blood was then reoccurring. Bronchial washings were collected for cytology and also for microbiology. The bronchoscope was navigated to the right middle lobe, where a bronchoalveolar lavage was done with 50 mL of normal saline recovering back around 25 mL of serosanguineous fluid consistent with diffuse alveolar hemorrhage. We did not do any additional aliquot for further cell counting due to the fact that the patient is already in a decompensated state and was having some difficulties with the procedure. Therefore, the BL was terminated. Afterwards, we did notice the right lower lobe ulcerated areas. Therefore, using forceps, endobronchial biopsies were collected x2 and sent in formalin to the pathologist to look at. Otherwise, the patient tolerated the procedure well. Vital signs were stable. The patient was bucking the ventilator that was uncomfortable. The bronchoscope then was then removed. The total endoscopic time approximately 10 minutes. MD LUC Rosenbaum/SAEED / [id number]
[2021-08-20 10:04] LABS: Glucose, Whole Blood 301 mg/dL (60-115)
[2021-08-20 12:06] LABS: Glucose, Whole Blood 250 mg/dL (60-115)
[2021-08-20] MEDS: Sevelamer Carbonate Powder 800 MG POWD.PACK PO ×2 (12:10→17:23)
--- NOTE | 2021-08-20 12:14 | PM.CCPN ---
Subjective Subjective Date of Service: 08/20/21 Interval History: 66-year-old male with altered mental status and hypoxic respiratory failure requiring intubation for the 2 noted to have diffuse alveolar hemorrhage clinically and on bronchoscopy as well as on on chest CT scan with a diffuse purpuric rash and combined renal and pulmonary failure and a sed rate of 109 as we await the balance of his vasculitic workup including biopsy of the skin a pending biopsy of his kidney and also outstanding be AL specimens from his bronchoscopy and being covered by broad-spectrum antibiotics and all this in the in the face of having underlying 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 and methicillin sensitive Staph aureus bacteremia and that was spanning 2-3 days and 5 different cultures it was consistent and currently being covered with a cephalosporin Skin biopsy does demonstrate vasculitis but no further staining such as IgA has been performed yet in renal biopsy is pending With sedation holiday he did respond by opening his eyes to the command and he was calm and actually looked over lock eyes so cognitive function seemingly preserved Critical Care Time (minutes): 45 Physical Exam Vital Signs: Vital Signs: Last Vital Signs Temp 96.0 F L 08/20/21 09:49 Pulse 69 08/20/21 11:00 Resp 13 08/20/21 11:00 BP 154/59 H 08/20/21 11:00 Pulse Ox 98 08/20/21 11:00 O2 Del Method 08/20/21 11:00 O2 Flow Rate 55 08/14/21 22:00 FiO2 40 08/20/21 11:42 BMI result Body Mass Index 35.4 II question the presence of fluctuance in the bottom of the left foot and might require incision and drainage that will be seen by surgery All 4 extremities a rather distended and I am going to ultrasound edges to look for any indication of deep vein thrombosis which might enhance the possibility of a of vasculitic process and/or antiphospholipid process Nonfocal neurologic it seemingly preserve cognitive function Abdomen somewhat distended but good bowel sounds nontender no organomegaly Lungs with diminished bilateral breath sounds no accessory muscle use Skin is no livedo just persistent per per a Cardiac exam preserved by echo Objective Data Labs CBC & Chem 7: 08/20/21 03:55 08/20/21 03:55 Labs: Laboratory Results - last 24 hr 08/13/21 08/18/21 08/19/21 08:09 08:48 06:12 WBC RBC Hgb Hct MCV MCH MCHC RDW Plt Count MPV Immature Gran % (Auto) Neut % (Auto) Lymph % (Auto) [place] % (Auto) Eos % (Auto) Baso % (Auto) Lymph # (Auto) [place] # (Auto) Eos # (Auto) Baso # (Auto) Abs Immat Gran (auto) Absolute Neuts (auto) Absolute Nucleated RBC Nucleated RBC % (auto) Smear Tech's Comments PT INR APTT VBG pH VBG pCO2 VBG pO2 VBG HCO3 VBG O2 Saturation VBG Base Excess Sodium Potassium Chloride Carbon Dioxide Anion Gap BUN Creatinine Estim Creat Clear Calc Estimated GFR POC Glucose Random Glucose Calcium Phosphorus Magnesium Total Bilirubin Direct Bilirubin AST ALT Alkaline Phosphatase Total Protein Albumin Mitochondrial AB Titer TNP Urine Eosinophils % U Random Total Protein Complement C3 30 L Complement C4 10 L Blood Type A Positive Antibody Screen NEGATIVE JEFF, Polyspecific NEGATIVE Positive JEFF Work-up TNP Crossmatch See Detail 08/19/21 08/19/21 08/19/21 12:10 14:47 17:48 WBC 14.8 H RBC 2.81 L D Hgb 8.5 L D Hct 26.0 L D MCV 92.5 MCH 30.2 MCHC 32.7 RDW 16.6 H Plt Count 45 L D MPV 12.4 Immature Gran % (Auto) 0.9 H Neut % (Auto) 93.4 H Lymph % (Auto) 4.1 L [place] % (Auto) 1.5 L Eos % (Auto) 0.1 Baso % (Auto) 0.0 Lymph # (Auto) 0.6 L [place] # (Auto) 0.2 Eos # (Auto) 0.0 Baso # (Auto) 0.0 Abs Immat Gran (auto) 0.13 H Absolute Neuts (auto) 13.8 H Absolute Nucleated RBC 0.040 H Nucleated RBC % (auto) 0.3 H Smear Tech's Comments VERIFIED PT INR APTT VBG pH VBG pCO2 VBG pO2 VBG HCO3 VBG O2 Saturation VBG Base Excess Sodium Potassium Chloride Carbon Dioxide Anion Gap BUN Creatinine Estim Creat Clear Calc Estimated GFR POC Glucose 377 H* 411 H* Random Glucose Calcium Phosphorus Magnesium Total Bilirubin Direct Bilirubin AST ALT Alkaline Phosphatase Total Protein Albumin Mitochondrial AB Titer Urine Eosinophils % U Random Total Protein Complement C3 Complement C4 Blood Type Antibody Screen JEFF, Polyspecific Positive JEFF Work-up Crossmatch 06/08/19/21 08/19/21 18:06 18:06 23:35 WBC RBC Hgb Hct MCV MCH MCHC RDW Plt Count MPV Immature Gran % (Auto) Neut % (Auto) Lymph % (Auto) [place] % (Auto) Eos % (Auto) Baso % (Auto) Lymph # (Auto) [place] # (Auto) Eos # (Auto) Baso # (Auto) Abs Immat Gran (auto) Absolute Neuts (auto) Absolute Nucleated RBC Nucleated RBC % (auto) Smear Tech's Comments PT INR APTT VBG pH VBG pCO2 VBG pO2 VBG HCO3 VBG O2 Saturation VBG Base Excess Sodium Potassium Chloride Carbon Dioxide Anion Gap BUN Creatinine Estim Creat Clear Calc Estimated GFR POC Glucose 483 H* Random Glucose Calcium Phosphorus Magnesium Total Bilirubin Direct Bilirubin AST ALT Alkaline Phosphatase Total Protein Albumin Mitochondrial AB Titer Urine Eosinophils % 0.0 U Random Total Protein 64 H Complement C3 Complement C4 Blood Type Antibody Screen JEFF, Polyspecific Positive JEFF Work-up Crossmatch 08/20/21 08/20/21 08/20/21 00:39 03:26 03:28 WBC RBC Hgb Hct MCV MCH MCHC RDW Plt Count MPV Immature Gran % (Auto) Neut % (Auto) Lymph % (Auto) [place] % (Auto) Eos % (Auto) Baso % (Auto) Lymph # (Auto) [place] # (Auto) Eos # (Auto) Baso # (Auto) Abs Immat Gran (auto) Absolute Neuts (auto) Absolute Nucleated RBC Nucleated RBC % (auto) Smear Tech's Comments PT INR APTT VBG pH VBG pCO2 VBG pO2 VBG HCO3 VBG O2 Saturation VBG Base Excess Sodium Potassium Chloride Carbon Dioxide Anion Gap BUN Creatinine Estim Creat Clear Calc Estimated GFR POC Glucose 430 H* 505 H* 473 H* Random Glucose Calcium Phosphorus Magnesium Total Bilirubin Direct Bilirubin AST ALT Alkaline Phosphatase Total Protein Albumin Mitochondrial AB Titer Urine Eosinophils % U Random Total Protein Complement C3 Complement C4 Blood Type Antibody Screen JEFF, Polyspecific Positive JEFF Work-up Crossmatch 08/20/21 08/20/21 08/20/21 03:55 03:55 03:55 WBC 10.5 RBC 2.79 L Hgb 8.5 L Hct 25.9 L MCV 92.8 MCH 30.5 MCHC 32.8 RDW 16.8 H Plt Count 36 L MPV 13.9 H Immature Gran % (Auto) 0.7 H Neut % (Auto) 93.9 H Lymph % (Auto) 4.3 L [place] % (Auto) 1.0 L Eos % (Auto) 0.0 Baso % (Auto) 0.1 Lymph # (Auto) 0.5 L [place] # (Auto) 0.1 Eos # (Auto) 0.0 Baso # (Auto) 0.0 Abs Immat Gran (auto) 0.07 H Absolute Neuts (auto) 9.8 H Absolute Nucleated RBC 0.020 H Nucleated RBC % (auto) 0.2 Smear Tech's Comments VERIFIED PT 17.6 H INR 1.5 H APTT 39.1 H VBG pH VBG pCO2 VBG pO2 VBG HCO3 VBG O2 Saturation VBG Base Excess Sodium 146 H Potassium 3.7 Chloride 111 H Carbon Dioxide 21 L Anion Gap 18 BUN 143 H Creatinine 2.37 H Estim Creat Clear Calc 35.2 Estimated GFR 27 POC Glucose Random Glucose 594 H* Calcium 7.7 L Phosphorus 6.2 H Magnesium 2.8 H Total Bilirubin 2.7 H Direct Bilirubin 1.8 H AST 42 H ALT 9 Alkaline Phosphatase 94 Total Protein 8.0 Albumin 2.8 L Mitochondrial AB Titer Urine Eosinophils % U Random Total Protein Complement C3 Complement C4 Blood Type Antibody Screen JEFF, Polyspecific Positive JEFF Work-up Crossmatch 08/20/21 08/20/21 08/20/21 04:01 04:06 05:02 WBC RBC Hgb Hct MCV MCH MCHC RDW Plt Count MPV Immature Gran % (Auto) Neut % (Auto) Lymph % (Auto) [place] % (Auto) Eos % (Auto) Baso % (Auto) Lymph # (Auto) [place] # (Auto) Eos # (Auto) Baso # (Auto) Abs Immat Gran (auto) Absolute Neuts (auto) Absolute Nucleated RBC Nucleated RBC % (auto) Smear Tech's Comments PT INR APTT VBG pH 7.35 VBG pCO2 39 VBG pO2 65 VBG HCO3 22 VBG O2 Saturation 89.0 VBG Base Excess -2.8 Sodium Potassium Chloride Carbon Dioxide Anion Gap BUN Creatinine Estim Creat Clear Calc Estimated GFR POC Glucose 447 H* 480 H* Random Glucose Calcium Phosphorus Magnesium Total Bilirubin Direct Bilirubin AST ALT Alkaline Phosphatase Total Protein Albumin Mitochondrial AB Titer Urine Eosinophils % U Random Total Protein Complement C3 Complement C4 Blood Type Antibody Screen JEFF, Polyspecific Positive JEFF Work-up Crossmatch 08/20/21 08/20/21 08/20/21 06:05 07:02 08:04 WBC RBC Hgb Hct MCV MCH MCHC RDW Plt Count MPV Immature Gran % (Auto) Neut % (Auto) Lymph % (Auto) [place] % (Auto) Eos % (Auto) Baso % (Auto) Lymph # (Auto) [place] # (Auto) Eos # (Auto) Baso # (Auto) Abs Immat Gran (auto) Absolute Neuts (auto) Absolute Nucleated RBC Nucleated RBC % (auto) Smear Tech's Comments PT INR APTT VBG pH VBG pCO2 VBG pO2 VBG HCO3 VBG O2 Saturation VBG Base Excess Sodium Potassium Chloride Carbon Dioxide Anion Gap BUN Creatinine Estim Creat Clear Calc Estimated GFR POC Glucose 448 H* 376 H* 358 H* Random Glucose Calcium Phosphorus Magnesium Total Bilirubin Direct Bilirubin AST ALT Alkaline Phosphatase Total Protein Albumin Mitochondrial AB Titer Urine Eosinophils % U Random Total Protein Complement C3 Complement C4 Blood Type Antibody Screen JEFF, Polyspecific Positive JEFF Work-up Crossmatch 08/20/21 08/20/21 08/20/21 09:02 10:00 12:02 WBC RBC Hgb Hct MCV MCH MCHC RDW Plt Count MPV Immature Gran % (Auto) Neut % (Auto) Lymph % (Auto) [place] % (Auto) Eos % (Auto) Baso % (Auto) Lymph # (Auto) [place] # (Auto) Eos # (Auto) Baso # (Auto) Abs Immat Gran (auto) Absolute Neuts (auto) Absolute Nucleated RBC Nucleated RBC % (auto) Smear Tech's Comments PT INR APTT VBG pH VBG pCO2 VBG pO2 VBG HCO3 VBG O2 Saturation VBG Base Excess Sodium Potassium Chloride Carbon Dioxide Anion Gap BUN Creatinine Estim Creat Clear Calc Estimated GFR POC Glucose 334 H 301 H 250 H Random Glucose Calcium Phosphorus Magnesium Total Bilirubin Direct Bilirubin AST ALT Alkaline Phosphatase Total Protein Albumin Mitochondrial AB Titer Urine Eosinophils % U Random Total Protein Complement C3 Complement C4 Blood Type Antibody Screen JEFF, Polyspecific Positive JEFF Work-up Crossmatch Microbiology Microbiology Results: Microbiology 08/19/21 08:37 Washing - Bronchial Gram Stain - Final 08/18/21 23:22 Foot Left Gram Stain - Final 08/17/21 05:48 Blood - Venous Blood Culture - Preliminary No growth after 48 hours. 08/17/21 05:48 Blood - Venous Blood Culture - Preliminary No growth after 48 hours. 08/15/21 05:22 Blood - Venous Blood Culture - Final Staphylococcus aureus 08/15/21 05:22 Blood - Venous Blood Culture - Final Staphylococcus aureus 08/14/21 23:17 Sputum - Induced Gram Stain - Final 08/14/21 23:17 Sputum - Induced Sputum Culture - Final 08/13/21 08:09 Blood - Venous Blood Culture - Final Staphylococcus aureus 08/13/21 08:09 Blood - Venous Blood Culture - Final Staphylococcus aureus 08/11/21 01:50 Blood - Venous Blood Culture - Final Staphylococcus aureus 08/11/21 01:50 Blood - Venous Blood Culture - Final Staphylococcus aureus Progress Note: A&P Assessment and plan (1) Palpable purpura: Status: Acute (2) Hypernatremia: Status: Acute (3) Pneumonia: Status: Acute (4) Hemoptysis: Status: Acute (5) Thrombocytopenia: Status: Acute (6) SOB (shortness of breath): Status: Acute (7) MSSA bacteremia: Status: Acute (8) Fall: Status: Acute (9) Acute hyponatremia: Status: Acute (10) Acute kidney injury: Status: Acute (11) Chronic kidney disease: Status: Acute (12) Atrial fibrillation, new onset: Status: Acute (13) Hyperlipidemia LDL goal <70: Status: Acute (14) 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: Status: Acute (15) Obesity (BMI 30-39.9): Status: Acute (16) CKD (chronic kidney disease) stage 3, GFR 30-59 ml/min: Status: Acute (17) Other and unspecified hyperlipidemia: Status: Acute (18) Type 2 diabetes mellitus with hyperglycemia, with long-term current use of insulin: Status: Acute (19) Type 2 diabetes mellitus with chronic kidney disease: Status: Acute (20) Essential hypertension: Status: Acute (21) 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: Status: Acute Plan So at this point the purpuric may might still be septic emboli and we still await the ANCA serology as well as the antiphospholipid studies and will do a surveillance ultrasound duplex of upper extremity and lower extremity deep veins see if there is an associated thrombotic process and continue with the pulsed high-dose steroid switch antibiotic from Kefzol to nafcillin and awaiting renal biopsy Quality Stroke Does the patient have a stroke diagnosis?: No VTE Prior VTE?: No VTE Risk Level:: Medical - moderate - high VTE Device Contraindication: Treatment Not Indicated VTE Drug Contraindication: N/A - Med Ordered
[2021-08-20 13:23] LABS: Glucose, Whole Blood 225 mg/dL (60-115)
[2021-08-20 13:41] LABS: INTERNATIONAL NORM RATIO 1.5 (0.9-1.1); Prothrombin Time 17.4 SEC (10.0-13.1)
--- NOTE | 2021-08-20 13:42 | MHC.CM.PN ---
Pt continues care in ICU where he is vented. Plans are for a sedation vacation today and gradual wean from the vent. Pt is also going to have a renal bx on 08/21. Initial d/c plans were for a return to home with possible VNA and family support however, pt will likely need STR placement with HD. Pt does not have a HCP and will need to complete one when he regains cognitive fx. Broad referrals have been made. CM to follow
[2021-08-20 13:43] LABS: Partial Thromboplastin Time 37.2 SEC (24.1-38.0)
[2021-08-20 14:02] LABS: Glucose, Whole Blood 210 mg/dL (60-115)
[2021-08-20] MEDS: Insulin Regular/NS 100 UNIT/100 ML PLAST..BAG 8 UNIT IVCONT (14:10)
[2021-08-20 14:31] LABS: Anti Nuclear Antibody Screen NEGATIVE (NEGATIVE)
[2021-08-20] MEDS: Nafcillin Sodium 2 GM in 0.9 % Sodium Chloride 100 ML IV ×3 (15:37→23:55)
[2021-08-20 16:07] LABS: Glucose, Whole Blood 165 mg/dL (60-115)
--- NOTE | 2021-08-20 16:47 | PM.PNNEP ---
Subjective Subjective Date of Service: 08/20/21 Principal diagnosis: AF Interval history: Chart Reviewed. Events noted. Physical Exam Vital Signs: Vital Signs: Last Vital Signs Temp 96.4 F L 08/20/21 16:00 Pulse 71 08/20/21 16:00 Resp 13 08/20/21 16:00 BP 143/61 H 08/20/21 16:00 Pulse Ox 93 08/20/21 16:00 O2 Del Method 08/20/21 16:00 O2 Flow Rate 55 08/14/21 22:00 FiO2 40 08/20/21 15:23 BMI result Body Mass Index 35.4 Const: General: no acute distress HEENT: Head: Yes normocephalic and Yes atraumatic Neck: Neck: Yes no JVD Resp: Auscultation: crackles Cardio: Jugular venous distension: no JVD Rate: regular rate Rhythm: regular rhythm Heart sounds: S1 normal heart sound present and S2 normal heart sound present GI: Auscultation: normal bowel sounds Extrem: General: Yes edema Objective Data Labs CBC & Chem 7: 08/20/21 03:55 08/20/21 03:55 Labs: Laboratory Results - last 24 hr 08/13/21 08/18/21 08/19/21 08:09 08:48 06:12 WBC RBC Hgb Hct MCV MCH MCHC RDW Plt Count MPV Immature Gran % (Auto) Neut % (Auto) Lymph % (Auto) [place] % (Auto) Eos % (Auto) Baso % (Auto) Lymph # (Auto) [place] # (Auto) Eos # (Auto) Baso # (Auto) Abs Immat Gran (auto) Absolute Neuts (auto) Absolute Nucleated RBC Nucleated RBC % (auto) Smear Tech's Comments PT INR APTT VBG pH VBG pCO2 VBG pO2 VBG HCO3 VBG O2 Saturation VBG Base Excess Sodium Potassium Chloride Carbon Dioxide Anion Gap BUN Creatinine Estim Creat Clear Calc Estimated GFR POC Glucose Random Glucose Calcium Phosphorus Magnesium Total Bilirubin Direct Bilirubin AST ALT Alkaline Phosphatase Total Protein Albumin Mitochondrial AB Titer TNP Urine Eosinophils % U Random Total Protein ZAYDA Screen NEGATIVE Blood Type A Positive Antibody Screen NEGATIVE JEFF, Polyspecific NEGATIVE Positive JEFF Work-up TNP Crossmatch See Detail 08/19/21 08/19/21 08/19/21 17:48 18:06 18:06 WBC RBC Hgb Hct MCV MCH MCHC RDW Plt Count MPV Immature Gran % (Auto) Neut % (Auto) Lymph % (Auto) [place] % (Auto) Eos % (Auto) Baso % (Auto) Lymph # (Auto) [place] # (Auto) Eos # (Auto) Baso # (Auto) Abs Immat Gran (auto) Absolute Neuts (auto) Absolute Nucleated RBC Nucleated RBC % (auto) Smear Tech's Comments PT INR APTT VBG pH VBG pCO2 VBG pO2 VBG HCO3 VBG O2 Saturation VBG Base Excess Sodium Potassium Chloride Carbon Dioxide Anion Gap BUN Creatinine Estim Creat Clear Calc Estimated GFR POC Glucose 411 H* Random Glucose Calcium Phosphorus Magnesium Total Bilirubin Direct Bilirubin AST ALT Alkaline Phosphatase Total Protein Albumin Mitochondrial AB Titer Urine Eosinophils % 0.0 U Random Total Protein 64 H ZAYDA Screen Blood Type Antibody Screen JEFF, Polyspecific Positive JEFF Work-up Crossmatch 08/19/21 08/20/21 08/20/21 23:35 00:39 03:26 WBC RBC Hgb Hct MCV MCH MCHC RDW Plt Count MPV Immature Gran % (Auto) Neut % (Auto) Lymph % (Auto) [place] % (Auto) Eos % (Auto) Baso % (Auto) Lymph # (Auto) [place] # (Auto) Eos # (Auto) Baso # (Auto) Abs Immat Gran (auto) Absolute Neuts (auto) Absolute Nucleated RBC Nucleated RBC % (auto) Smear Tech's Comments PT INR APTT VBG pH VBG pCO2 VBG pO2 VBG HCO3 VBG O2 Saturation VBG Base Excess Sodium Potassium Chloride Carbon Dioxide Anion Gap BUN Creatinine Estim Creat Clear Calc Estimated GFR POC Glucose 483 H* 430 H* 505 H* Random Glucose Calcium Phosphorus Magnesium Total Bilirubin Direct Bilirubin AST ALT Alkaline Phosphatase Total Protein Albumin Mitochondrial AB Titer Urine Eosinophils % U Random Total Protein ZAYDA Screen Blood Type Antibody Screen JEFF, Polyspecific Positive JEFF Work-up Crossmatch 08/20/21 08/20/21 08/20/21 03:28 03:55 03:55 WBC 10.5 RBC 2.79 L Hgb 8.5 L Hct 25.9 L MCV 92.8 MCH 30.5 MCHC 32.8 RDW 16.8 H Plt Count 36 L MPV 13.9 H Immature Gran % (Auto) 0.7 H Neut % (Auto) 93.9 H Lymph % (Auto) 4.3 L [place] % (Auto) 1.0 L Eos % (Auto) 0.0 Baso % (Auto) 0.1 Lymph # (Auto) 0.5 L [place] # (Auto) 0.1 Eos # (Auto) 0.0 Baso # (Auto) 0.0 Abs Immat Gran (auto) 0.07 H Absolute Neuts (auto) 9.8 H Absolute Nucleated RBC 0.020 H Nucleated RBC % (auto) 0.2 Smear Tech's Comments VERIFIED PT 17.6 H INR 1.5 H APTT 39.1 H VBG pH VBG pCO2 VBG pO2 VBG HCO3 VBG O2 Saturation VBG Base Excess Sodium Potassium Chloride Carbon Dioxide Anion Gap BUN Creatinine Estim Creat Clear Calc Estimated GFR POC Glucose 473 H* Random Glucose Calcium Phosphorus Magnesium Total Bilirubin Direct Bilirubin AST ALT Alkaline Phosphatase Total Protein Albumin Mitochondrial AB Titer Urine Eosinophils % U Random Total Protein ZAYDA Screen Blood Type Antibody Screen JEFF, Polyspecific Positive JEFF Work-up Crossmatch 08/20/21 08/20/21 08/20/21 03:55 04:01 04:06 WBC RBC Hgb Hct MCV MCH MCHC RDW Plt Count MPV Immature Gran % (Auto) Neut % (Auto) Lymph % (Auto) [place] % (Auto) Eos % (Auto) Baso % (Auto) Lymph # (Auto) [place] # (Auto) Eos # (Auto) Baso # (Auto) Abs Immat Gran (auto) Absolute Neuts (auto) Absolute Nucleated RBC Nucleated RBC % (auto) Smear Tech's Comments PT INR APTT VBG pH 7.35 VBG pCO2 39 VBG pO2 65 VBG HCO3 22 VBG O2 Saturation 89.0 VBG Base Excess -2.8 Sodium 146 H Potassium 3.7 Chloride 111 H Carbon Dioxide 21 L Anion Gap 18 BUN 143 H Creatinine 2.37 H Estim Creat Clear Calc 35.2 Estimated GFR 27 POC Glucose 447 H* Random Glucose 594 H* Calcium 7.7 L Phosphorus 6.2 H Magnesium 2.8 H Total Bilirubin 2.7 H Direct Bilirubin 1.8 H AST 42 H ALT 9 Alkaline Phosphatase 94 Total Protein 8.0 Albumin 2.8 L Mitochondrial AB Titer Urine Eosinophils % U Random Total Protein ZAYDA Screen Blood Type Antibody Screen JEFF, Polyspecific Positive JEFF Work-up Crossmatch 08/20/21 08/20/21 08/20/21 05:02 06:05 07:02 WBC RBC Hgb Hct MCV MCH MCHC RDW Plt Count MPV Immature Gran % (Auto) Neut % (Auto) Lymph % (Auto) [place] % (Auto) Eos % (Auto) Baso % (Auto) Lymph # (Auto) [place] # (Auto) Eos # (Auto) Baso # (Auto) Abs Immat Gran (auto) Absolute Neuts (auto) Absolute Nucleated RBC Nucleated RBC % (auto) Smear Tech's Comments PT INR APTT VBG pH VBG pCO2 VBG pO2 VBG HCO3 VBG O2 Saturation VBG Base Excess Sodium Potassium Chloride Carbon Dioxide Anion Gap BUN Creatinine Estim Creat Clear Calc Estimated GFR POC Glucose 480 H* 448 H* 376 H* Random Glucose Calcium Phosphorus Magnesium Total Bilirubin Direct Bilirubin AST ALT Alkaline Phosphatase Total Protein Albumin Mitochondrial AB Titer Urine Eosinophils % U Random Total Protein ZAYDA Screen Blood Type Antibody Screen JEFF, Polyspecific Positive JEFF Work-up Crossmatch 08/20/21 08/20/21 08/20/21 08:04 09:02 10:00 WBC RBC Hgb Hct MCV MCH MCHC RDW Plt Count MPV Immature Gran % (Auto) Neut % (Auto) Lymph % (Auto) [place] % (Auto) Eos % (Auto) Baso % (Auto) Lymph # (Auto) [place] # (Auto) Eos # (Auto) Baso # (Auto) Abs Immat Gran (auto) Absolute Neuts (auto) Absolute Nucleated RBC Nucleated RBC % (auto) Smear Tech's Comments PT INR APTT VBG pH VBG pCO2 VBG pO2 VBG HCO3 VBG O2 Saturation VBG Base Excess Sodium Potassium Chloride Carbon Dioxide Anion Gap BUN Creatinine Estim Creat Clear Calc Estimated GFR POC Glucose 358 H* 334 H 301 H Random Glucose Calcium Phosphorus Magnesium Total Bilirubin Direct Bilirubin AST ALT Alkaline Phosphatase Total Protein Albumin Mitochondrial AB Titer Urine Eosinophils % U Random Total Protein ZAYDA Screen Blood Type Antibody Screen JEFF, Polyspecific Positive JEFF Work-up Crossmatch 08/20/21 08/20/21 08/20/21 12:02 13:19 13:21 WBC RBC Hgb Hct MCV MCH MCHC RDW Plt Count MPV Immature Gran % (Auto) Neut % (Auto) Lymph % (Auto) [place] % (Auto) Eos % (Auto) Baso % (Auto) Lymph # (Auto) [place] # (Auto) Eos # (Auto) Baso # (Auto) Abs Immat Gran (auto) Absolute Neuts (auto) Absolute Nucleated RBC Nucleated RBC % (auto) Smear Tech's Comments PT 17.4 H INR 1.5 H APTT 37.2 VBG pH VBG pCO2 VBG pO2 VBG HCO3 VBG O2 Saturation VBG Base Excess Sodium Potassium Chloride Carbon Dioxide Anion Gap BUN Creatinine Estim Creat Clear Calc Estimated GFR POC Glucose 250 H 225 H Random Glucose Calcium Phosphorus Magnesium Total Bilirubin Direct Bilirubin AST ALT Alkaline Phosphatase Total Protein Albumin Mitochondrial AB Titer Urine Eosinophils % U Random Total Protein ZAYDA Screen Blood Type Antibody Screen JEFF, Polyspecific Positive JEFF Work-up Crossmatch 08/20/21 08/20/21 14:00 15:56 WBC RBC Hgb Hct MCV MCH MCHC RDW Plt Count MPV Immature Gran % (Auto) Neut % (Auto) Lymph % (Auto) [place] % (Auto) Eos % (Auto) Baso % (Auto) Lymph # (Auto) [place] # (Auto) Eos # (Auto) Baso # (Auto) Abs Immat Gran (auto) Absolute Neuts (auto) Absolute Nucleated RBC Nucleated RBC % (auto) Smear Tech's Comments PT INR APTT VBG pH VBG pCO2 VBG pO2 VBG HCO3 VBG O2 Saturation VBG Base Excess Sodium Potassium Chloride Carbon Dioxide Anion Gap BUN Creatinine Estim Creat Clear Calc Estimated GFR POC Glucose 210 H 165 H Random Glucose Calcium Phosphorus Magnesium Total Bilirubin Direct Bilirubin AST ALT Alkaline Phosphatase Total Protein Albumin Mitochondrial AB Titer Urine Eosinophils % U Random Total Protein ZAYDA Screen Blood Type Antibody Screen JEFF, Polyspecific Positive JEFF Work-up Crossmatch Microbiology Microbiology Results: Microbiology 08/19/21 08:37 Washing - Bronchial Gram Stain - Final 08/19/21 08:37 Washing - Bronchial - Preliminary Culture in progress. 08/18/21 23:22 Foot Left Gram Stain - Final 08/18/21 23:22 Foot Left Routine Culture - Preliminary Staphylococcus aureus 08/17/21 05:48 Blood - Venous Blood Culture - Preliminary No growth after 48 hours. 08/17/21 05:48 Blood - Venous Blood Culture - Preliminary No growth after 48 hours. 08/15/21 05:22 Blood - Venous Blood Culture - Final Staphylococcus aureus 08/15/21 05:22 Blood - Venous Blood Culture - Final Staphylococcus aureus 08/14/21 23:17 Sputum - Induced Gram Stain - Final 08/14/21 23:17 Sputum - Induced Sputum Culture - Final 08/13/21 08:09 Blood - Venous Blood Culture - Final Staphylococcus aureus 08/13/21 08:09 Blood - Venous Blood Culture - Final Staphylococcus aureus 08/11/21 01:50 Blood - Venous Blood Culture - Final Staphylococcus aureus 08/11/21 01:50 Blood - Venous Blood Culture - Final Staphylococcus aureus Procedures Date of Service Date of Service: 08/20/21 Assessment & Plan Assessment and plan (1) Hypernatremia: Status: Acute (2) Acute kidney injury: Status: Acute Assessment and Plan: #) Acute kidney injury due to tubular injury superimposed on chronic kidney disease Had adequate diuresis with supportive care. Provide FW replacement with D5W ~ 3L deficit. Prn loop diuretics ok to maintain I=O. BUN elevated. trend. will reassess for potential DOCK BOSS needs. Noted moni, anemia, c3/c4 low complements, purpura noted on skin exam. Renal biopsy ordered. IR to perform on 08/21. Hyperphosphatemia. Binder/powder added. Time Spent With Patient Time: Total time spent is greater than 50% in coordination of care (as documented) at patient's floor/unit and/or counseling patient: Progress Note: Quality Stroke Does the patient have a stroke diagnosis?: No
[2021-08-20 17:08] LABS: Glucose, Whole Blood 151 mg/dL (60-115)
[2021-08-20 18:11] LABS: Glucose, Whole Blood 133 mg/dL (60-115)
[2021-08-20 19:08] LABS: Glucose, Whole Blood 153 mg/dL (60-115)
--- NOTE | 2021-08-20 19:18 | PC.NURSE ---
SEDATION VACATION STARTED AT 0941 AND REMAINS OFF. PATIENT PARTIALLY OPENS EYES TO STIMULI, DOES NOT FOLLOW COMMANDS. LEVOPHED AND INSULIN GTT ABLE TO BE TITRATED OFF. KO FEED UNABLE TO FLUSH AT 1800 - PA NOTIFIED. TUBE FEEDS ON HOLD AT THIS TIME. UNABLE TO GIVE LACTULOSE AT THIS TIME. BLOODY INLINE AND ORAL SECRETIONS REMAIN - MD AWARE. PLATELETS X 1 ADMINISTERED AND TOLERATED WELL. FAMILY UPDATED BY THIS RN.
--- NOTE | 2021-08-20 19:27 | P.PNPL_ITS ---
Subjective Subjective Date of Service: 08/20/21 Principal diagnosis: AF Interval history: THe patient was seen and examined. Less bloody secretions noted today. Bro nchoscopy consistent with DAH. Given solumedrol 1gm IV x1. Biopsy of the skin prelim demonstrating vasculitis. Renal biopsy pending. ANCA pending. Objective Data Labs CBC & Chem 7: 08/20/21 03:55 08/20/21 03:55 Labs: Laboratory Results - last 24 hr 08/13/21 08/18/21 08/19/21 08:09 08:48 06:12 WBC RBC Hgb Hct MCV MCH MCHC RDW Plt Count MPV Immature Gran % (Auto) Neut % (Auto) Lymph % (Auto) [place] % (Auto) Eos % (Auto) Baso % (Auto) Lymph # (Auto) [place] # (Auto) Eos # (Auto) Baso # (Auto) Abs Immat Gran (auto) Absolute Neuts (auto) Absolute Nucleated RBC Nucleated RBC % (auto) Smear Tech's Comments PT INR APTT VBG pH VBG pCO2 VBG pO2 VBG HCO3 VBG O2 Saturation VBG Base Excess Sodium Potassium Chloride Carbon Dioxide Anion Gap BUN Creatinine Estim Creat Clear Calc Estimated GFR POC Glucose Random Glucose Calcium Phosphorus Magnesium Total Bilirubin Direct Bilirubin AST ALT Alkaline Phosphatase Total Protein Albumin Mitochondrial AB Titer TNP Urine Eosinophils % ZAYDA Screen NEGATIVE Blood Type A Positive Antibody Screen NEGATIVE JEFF, Polyspecific NEGATIVE Positive JEFF Work-up TNP Crossmatch See Detail 08/19/21 08/19/21 08/20/21 18:06 23:35 00:39 WBC RBC Hgb Hct MCV MCH MCHC RDW Plt Count MPV Immature Gran % (Auto) Neut % (Auto) Lymph % (Auto) [place] % (Auto) Eos % (Auto) Baso % (Auto) Lymph # (Auto) [place] # (Auto) Eos # (Auto) Baso # (Auto) Abs Immat Gran (auto) Absolute Neuts (auto) Absolute Nucleated RBC Nucleated RBC % (auto) Smear Tech's Comments PT INR APTT VBG pH VBG pCO2 VBG pO2 VBG HCO3 VBG O2 Saturation VBG Base Excess Sodium Potassium Chloride Carbon Dioxide Anion Gap BUN Creatinine Estim Creat Clear Calc Estimated GFR POC Glucose 483 H* 430 H* Random Glucose Calcium Phosphorus Magnesium Total Bilirubin Direct Bilirubin AST ALT Alkaline Phosphatase Total Protein Albumin Mitochondrial AB Titer Urine Eosinophils % 0.0 ZAYDA Screen Blood Type Antibody Screen JEFF, Polyspecific Positive JEFF Work-up Crossmatch 08/20/21 08/20/21 08/20/21 03:26 03:28 03:55 WBC 10.5 RBC 2.79 L Hgb 8.5 L Hct 25.9 L MCV 92.8 MCH 30.5 MCHC 32.8 RDW 16.8 H Plt Count 36 L MPV 13.9 H Immature Gran % (Auto) 0.7 H Neut % (Auto) 93.9 H Lymph % (Auto) 4.3 L [place] % (Auto) 1.0 L Eos % (Auto) 0.0 Baso % (Auto) 0.1 Lymph # (Auto) 0.5 L [place] # (Auto) 0.1 Eos # (Auto) 0.0 Baso # (Auto) 0.0 Abs Immat Gran (auto) 0.07 H Absolute Neuts (auto) 9.8 H Absolute Nucleated RBC 0.020 H Nucleated RBC % (auto) 0.2 Smear Tech's Comments VERIFIED PT INR APTT VBG pH VBG pCO2 VBG pO2 VBG HCO3 VBG O2 Saturation VBG Base Excess Sodium Potassium Chloride Carbon Dioxide Anion Gap BUN Creatinine Estim Creat Clear Calc Estimated GFR POC Glucose 505 H* 473 H* Random Glucose Calcium Phosphorus Magnesium Total Bilirubin Direct Bilirubin AST ALT Alkaline Phosphatase Total Protein Albumin Mitochondrial AB Titer Urine Eosinophils % ZAYDA Screen Blood Type Antibody Screen JEFF, Polyspecific Positive JEFF Work-up Crossmatch 08/20/21 08/20/21 08/20/21 03:55 03:55 04:01 WBC RBC Hgb Hct MCV MCH MCHC RDW Plt Count MPV Immature Gran % (Auto) Neut % (Auto) Lymph % (Auto) [place] % (Auto) Eos % (Auto) Baso % (Auto) Lymph # (Auto) [place] # (Auto) Eos # (Auto) Baso # (Auto) Abs Immat Gran (auto) Absolute Neuts (auto) Absolute Nucleated RBC Nucleated RBC % (auto) Smear Tech's Comments PT 17.6 H INR 1.5 H APTT 39.1 H VBG pH VBG pCO2 VBG pO2 VBG HCO3 VBG O2 Saturation VBG Base Excess Sodium 146 H Potassium 3.7 Chloride 111 H Carbon Dioxide 21 L Anion Gap 18 BUN 143 H Creatinine 2.37 H Estim Creat Clear Calc 35.2 Estimated GFR 27 POC Glucose 447 H* Random Glucose 594 H* Calcium 7.7 L Phosphorus 6.2 H Magnesium 2.8 H Total Bilirubin 2.7 H Direct Bilirubin 1.8 H AST 42 H ALT 9 Alkaline Phosphatase 94 Total Protein 8.0 Albumin 2.8 L Mitochondrial AB Titer Urine Eosinophils % ZAYDA Screen Blood Type Antibody Screen JEFF, Polyspecific Positive JEFF Work-up Crossmatch 08/20/21 08/20/21 08/20/21 04:06 05:02 06:05 WBC RBC Hgb Hct MCV MCH MCHC RDW Plt Count MPV Immature Gran % (Auto) Neut % (Auto) Lymph % (Auto) [place] % (Auto) Eos % (Auto) Baso % (Auto) Lymph # (Auto) [place] # (Auto) Eos # (Auto) Baso # (Auto) Abs Immat Gran (auto) Absolute Neuts (auto) Absolute Nucleated RBC Nucleated RBC % (auto) Smear Tech's Comments PT INR APTT VBG pH 7.35 VBG pCO2 39 VBG pO2 65 VBG HCO3 22 VBG O2 Saturation 89.0 VBG Base Excess -2.8 Sodium Potassium Chloride Carbon Dioxide Anion Gap BUN Creatinine Estim Creat Clear Calc Estimated GFR POC Glucose 480 H* 448 H* Random Glucose Calcium Phosphorus Magnesium Total Bilirubin Direct Bilirubin AST ALT Alkaline Phosphatase Total Protein Albumin Mitochondrial AB Titer Urine Eosinophils % ZAYDA Screen Blood Type Antibody Screen JEFF, Polyspecific Positive JEFF Work-up Crossmatch 08/20/21 08/20/21 08/20/21 07:02 08:04 09:02 WBC RBC Hgb Hct MCV MCH MCHC RDW Plt Count MPV Immature Gran % (Auto) Neut % (Auto) Lymph % (Auto) [place] % (Auto) Eos % (Auto) Baso % (Auto) Lymph # (Auto) [place] # (Auto) Eos # (Auto) Baso # (Auto) Abs Immat Gran (auto) Absolute Neuts (auto) Absolute Nucleated RBC Nucleated RBC % (auto) Smear Tech's Comments PT INR APTT VBG pH VBG pCO2 VBG pO2 VBG HCO3 VBG O2 Saturation VBG Base Excess Sodium Potassium Chloride Carbon Dioxide Anion Gap BUN Creatinine Estim Creat Clear Calc Estimated GFR POC Glucose 376 H* 358 H* 334 H Random Glucose Calcium Phosphorus Magnesium Total Bilirubin Direct Bilirubin AST ALT Alkaline Phosphatase Total Protein Albumin Mitochondrial AB Titer Urine Eosinophils % ZAYDA Screen Blood Type Antibody Screen JEFF, Polyspecific Positive JEFF Work-up Crossmatch 08/20/21 08/20/21 08/20/21 10:00 12:02 13:19 WBC RBC Hgb Hct MCV MCH MCHC RDW Plt Count MPV Immature Gran % (Auto) Neut % (Auto) Lymph % (Auto) [place] % (Auto) Eos % (Auto) Baso % (Auto) Lymph # (Auto) [place] # (Auto) Eos # (Auto) Baso # (Auto) Abs Immat Gran (auto) Absolute Neuts (auto) Absolute Nucleated RBC Nucleated RBC % (auto) Smear Tech's Comments PT INR APTT VBG pH VBG pCO2 VBG pO2 VBG HCO3 VBG O2 Saturation VBG Base Excess Sodium Potassium Chloride Carbon Dioxide Anion Gap BUN Creatinine Estim Creat Clear Calc Estimated GFR POC Glucose 301 H 250 H 225 H Random Glucose Calcium Phosphorus Magnesium Total Bilirubin Direct Bilirubin AST ALT Alkaline Phosphatase Total Protein Albumin Mitochondrial AB Titer Urine Eosinophils % ZAYDA Screen Blood Type Antibody Screen JEFF, Polyspecific Positive JEFF Work-up Crossmatch 08/20/21 08/20/21 08/20/21 13:21 14:00 15:56 WBC RBC Hgb Hct MCV MCH MCHC RDW Plt Count MPV Immature Gran % (Auto) Neut % (Auto) Lymph % (Auto) [place] % (Auto) Eos % (Auto) Baso % (Auto) Lymph # (Auto) [place] # (Auto) Eos # (Auto) Baso # (Auto) Abs Immat Gran (auto) Absolute Neuts (auto) Absolute Nucleated RBC Nucleated RBC % (auto) Smear Tech's Comments PT 17.4 H INR 1.5 H APTT 37.2 VBG pH VBG pCO2 VBG pO2 VBG HCO3 VBG O2 Saturation VBG Base Excess Sodium Potassium Chloride Carbon Dioxide Anion Gap BUN Creatinine Estim Creat Clear Calc Estimated GFR POC Glucose 210 H 165 H Random Glucose Calcium Phosphorus Magnesium Total Bilirubin Direct Bilirubin AST ALT Alkaline Phosphatase Total Protein Albumin Mitochondrial AB Titer Urine Eosinophils % ZAYDA Screen Blood Type Antibody Screen JEFF, Polyspecific Positive JEFF Work-up Crossmatch 08/20/21 08/20/21 08/20/21 17:03 18:06 19:05 WBC RBC Hgb Hct MCV MCH MCHC RDW Plt Count MPV Immature Gran % (Auto) Neut % (Auto) Lymph % (Auto) [place] % (Auto) Eos % (Auto) Baso % (Auto) Lymph # (Auto) [place] # (Auto) Eos # (Auto) Baso # (Auto) Abs Immat Gran (auto) Absolute Neuts (auto) Absolute Nucleated RBC Nucleated RBC % (auto) Smear Tech's Comments PT INR APTT VBG pH VBG pCO2 VBG pO2 VBG HCO3 VBG O2 Saturation VBG Base Excess Sodium Potassium Chloride Carbon Dioxide Anion Gap BUN Creatinine Estim Creat Clear Calc Estimated GFR POC Glucose 151 H 133 H 153 H Random Glucose Calcium Phosphorus Magnesium Total Bilirubin Direct Bilirubin AST ALT Alkaline Phosphatase Total Protein Albumin Mitochondrial AB Titer Urine Eosinophils % ZAYDA Screen Blood Type Antibody Screen JEFF, Polyspecific Positive JEFF Work-up Crossmatch Microbiology Microbiology Results: Microbiology 08/19/21 08:37 Washing - Bronchial Gram Stain - Final 08/19/21 08:37 Washing - Bronchial - Preliminary Culture in progress. 08/18/21 23:22 Foot Left Gram Stain - Final 08/18/21 23:22 Foot Left Routine Culture - Preliminary Staphylococcus aureus 08/17/21 05:48 Blood - Venous Blood Culture - Preliminary No growth after 48 hours. 08/17/21 05:48 Blood - Venous Blood Culture - Preliminary No growth after 48 hours. 08/15/21 05:22 Blood - Venous Blood Culture - Final Staphylococcus aureus 08/15/21 05:22 Blood - Venous Blood Culture - Final Staphylococcus aureus 08/14/21 23:17 Sputum - Induced Gram Stain - Final 08/14/21 23:17 Sputum - Induced Sputum Culture - Final 08/13/21 08:09 Blood - Venous Blood Culture - Final Staphylococcus aureus 08/13/21 08:09 Blood - Venous Blood Culture - Final Staphylococcus aureus 08/11/21 01:50 Blood - Venous Blood Culture - Final Staphylococcus aureus 08/11/21 01:50 Blood - Venous Blood Culture - Final Staphylococcus aureus Review of Systems Review of Systems Yes unobtainable due to endotracheal tube Physical Exam Vital Signs: Vital Signs: Last Vital Signs Temp 96.8 F 08/20/21 19:00 Pulse 65 08/20/21 19:00 Resp 13 08/20/21 19:00 BP 136/60 08/20/21 19:00 Pulse Ox 97 08/20/21 19:00 O2 Del Method 08/20/21 19:00 O2 Flow Rate 55 08/14/21 22:00 FiO2 70 08/20/21 19:00 BMI result Body Mass Index 35.4 Const: General: other (sedated) Neck: Neck: Yes supple Chest: Chest palpation & inspection: normal inspection of the chest Resp: Auscultation: diminished lung sounds Cardio: Rate: regular rate Rhythm: regular rhythm Heart sounds: S1 normal heart sound present and S2 normal heart sound present Skin: General skin exam: petechiae and purpura Procedures Date of Service Date of Service: 08/20/21 Assessment and Plan Assessment and plan (1) Acute respiratory failure: Status: Acute (2) Diffuse pulmonary alveolar hemorrhage: Status: Acute (3) 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
[2021-08-20 19:38] LABS: Hematocrit 24.9 % (42.0-52.0); SCAN SMEAR FLAG 1
[2021-08-20 19:40] LABS: Basophils Percent Auto 0.1 % (0-2); Imm Gran Abs Auto 0.06 X10*3/uL (0.00-0.03); Imm Gran Pct Auto 0.5 % (0.0-0.4); Lymphocytes Absolute Auto 0.4 X10*3/uL (1.2-4.9); Lymphocytes Percent Auto 3.4 % (20-40); MANUAL DIFF FLAG SCAN; Mean Corpuscular HGB Conc 32.1 g/dl (31.0-36.0); Mean Corpuscular Hemoglobin 29.7 pg (27.0-33.0); Mean Corpuscular Volume 92.6 fL (80.0-98.0); Monocytes Absolute Auto 0.5 X10*3/uL (0.1-1.2); Monocytes Percent Auto 4.2 % (2-11); NRBC Pct Auto 0.3 /100WBC (0.0-0.2); Neutrophils Absolute Auto 10.8 x10*3/uL (2.0-8.3); Neutrophils Percent Auto 91.8 % (45-73); Red Blood Count 2.69 X10*6/uL (4.60-5.80); Red Cell Distribution Width 16.9 % (11.0-16.0); White Blood Count 11.7 X10*3/uL (4.8-10.8)
[2021-08-20 19:43] LABS: Platelet Count 38 X10*3/uL (160-400)
[2021-08-20 19:44] LABS: PLT ABN DIST 1
[2021-08-20 20:23] LABS: SLIDE REVIEW VERIFIED
[2021-08-20 21:18] LABS: Glucose, Whole Blood 170 mg/dL (60-115)
[2021-08-21] VITALS (38 sets, daily range): BP systolic 105–140; BP diastolic 37–90; PULSE 54–83; RESP 10–20; TEMP 34.4–36.7; O2SAT 1–96; BMI 36.3
[2021-08-21 00:13] LABS: Glucose, Whole Blood 162 mg/dL (60-115)
[2021-08-21] MEDS: Lactated Ringers 1,000 ML 50 ML IVCONT (00:31)
[2021-08-21 02:05] LABS: Glucose, Whole Blood 174 mg/dL (60-115)
[2021-08-21] MEDS: propofoL 1,000 MG/100 ML VIAL 11.24 MG IVCONT ×3 (02:15→16:46)
[2021-08-21] MEDS: Nafcillin Sodium 2 GM in 0.9 % Sodium Chloride 100 ML IV ×6 (02:26→22:39)
[2021-08-21 04:03] LABS: VBG Base Excess -1.2 mmol/L; VBG HCO3 23 mmol/L (22-26); VBG pCO2 36 mmHg; VBG pO2 54 mmHg
[2021-08-21 04:18] LABS: Basophils Percent Auto 0.1 % (0-2); Hematocrit 21.6 % (42.0-52.0); Imm Gran Abs Auto 0.04 X10*3/uL (0.00-0.03); Imm Gran Pct Auto 0.4 % (0.0-0.4); Lymphocytes Absolute Auto 0.4 X10*3/uL (1.2-4.9); Lymphocytes Percent Auto 3.7 % (20-40); MANUAL DIFF FLAG SCAN; Mean Corpuscular HGB Conc 32.4 g/dl (31.0-36.0); Mean Corpuscular Hemoglobin 29.9 pg (27.0-33.0); Mean Corpuscular Volume 92.3 fL (80.0-98.0); Mean Platelet Volume 11.3 fL (9.4-12.4); Monocytes Absolute Auto 0.3 X10*3/uL (0.1-1.2); Monocytes Percent Auto 2.8 % (2-11); NRBC Pct Auto 0.3 /100WBC (0.0-0.2); Neutrophils Absolute Auto 10.5 x10*3/uL (2.0-8.3); Red Blood Count 2.34 X10*6/uL (4.60-5.80); Red Cell Distribution Width 16.8 % (11.0-16.0); SCAN SMEAR FLAG 1; White Blood Count 11.3 X10*3/uL (4.8-10.8)
[2021-08-21 04:24] LABS: Platelet Count 56 X10*3/uL (160-400)
[2021-08-21 04:25] LABS: Fibrinogen 215 MG/DL (259-690); INTERNATIONAL NORM RATIO 1.5 (0.9-1.1); Prothrombin Time 17.8 SEC (10.0-13.1)
[2021-08-21 04:26] LABS: Venous Blood Gas Refer to POC result
[2021-08-21 04:28] LABS: Partial Thromboplastin Time 35.7 SEC (24.1-38.0)
[2021-08-21 04:37] LABS: SLIDE REVIEW VERIFIED
[2021-08-21 04:46] LABS: Alanine Aminotransferase 7 U/L (0-40); Albumin Level 2.3 g/dL (3.5-5.0); Alkaline Phosphatase 76 U/L (39-117); Anion Gap 16 (12-20); Aspartate Amino Transferase 41 U/L (5-37); Bilirubin Direct 2.7 mg/dL (0.0-0.5); Bilirubin Total 3.5 mg/dL (0.0-1.0); Calcium 7.4 mg/dL (8.4-10.2); Carbon Dioxide 23 mmol/L (22-29); Chloride 115 mmol/L (96-108); Creatinine Clr Calc Pharmacy 43.5; Estimated Glomerular Filt Rate 35; Glucose Random 208 mg/dL (60-115); Magnesium 2.5 mg/dL (1.6-2.6); Phosphorus 7.1 mg/dL (2.7-4.5); Potassium 3.7 mmol/L (3.3-5.1); Sodium 150 mmol/L (135-145); Total Protein 6.5 g/dL (6.5-8.0)
[2021-08-21 04:51] LABS: Ammonia 103 umol/L (13-55)
[2021-08-21 04:59] LABS: TSH reflex Free T4 0.03 uIU/mL (0.32-4.0)
[2021-08-21 05:02] LABS: Blood Urea Nitrogen 144 mg/dL (9-16)
[2021-08-21 05:36] LABS: Free T4 (Free Thyroxine) 0.46 ng/dL (0.71-1.85)
[2021-08-21 06:25] LABS: Glucose, Whole Blood 193 mg/dL (60-115)
[2021-08-21] MEDS: 0.9 % Sodium Chloride Flush 3 ML SYRINGE IVFLUSH ×3 (07:46→22:42)
[2021-08-21] MEDS: Insulin Glargine,Hum.rec.anlog 100 UNIT/ML 10 ML VIAL 20 UNIT SUBCUT (08:49)
[2021-08-21] MEDS: Chlorhexidine Gluc Oral Rinse 15 ML MOUTHWASH BUCCAL ×3 (08:49→21:41)
[2021-08-21 09:04] LABS: Glucose, Whole Blood 192 mg/dL (60-115)
[2021-08-21] MEDS: KCl 20 mEq in 0.45% Sod 20 MEQ/1,000 ML IV.SOLN 150 MEQ IVCONT ×2 (09:05→15:12)
[2021-08-21] MEDS: Sevelamer Carbonate Powder 800 MG POWD.PACK PO ×3 (09:08→16:14)
[2021-08-21] MEDS: Sodium Bicarbonate 650 MG TABLET G-TUBE ×3 (09:08→21:40)
[2021-08-21] MEDS: Thiamine HCL 100 MG TABLET PO (09:08)
[2021-08-21] MEDS: methylPREDNISolone Sod Succ 1,000 MG in 0.9 % Sodium Chloride 50 ML 66 MG IV (09:50)
[2021-08-21] MEDS: Levothyroxine Sodium 100 MCG/5 ML VIAL IVPUSH (10:58)
[2021-08-21 11:07] LABS: Glucose, Whole Blood 187 mg/dL (60-115)
--- NOTE | 2021-08-21 11:30 | P.PNCC_ITS ---
Subjective Subjective Date of Service: 08/21/21 Interval History: 66-year-old male very complicated type 2 diabetic with moderate obesity has Charcot feet bilaterally but with fractures on the left side clearly there is there is a callus and there there is a a collection of probably infected fluid and we did document that methicillin sensitive Staph aureus grew from there and then he from there developed the bacteremia but 4 days of consecutive positive cultures before attaining negativity currently on nafcillin and he had acute on chronic stage IV renal disease which is now slightly improved at a level of considerable azotemia but not uremic. 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 Hematology consult never came and I had a discussion with Rheumatology and we were going to do a renal biopsy today but platelet counts of barely 50,000 and he still has a continued bleeding diathesis from his scan but there is no demonstration of a consumptive coagulopathy and is no evidence of microangiopathy so we have ruled out DIC we have ruled out TTP no evidence of any form of deep vein thrombosis that we have noticed I doubt and antiphospholipid syndrome but vasculitis still very possible with combined renal and lung issues Currently on FiO2 of 40% and he woke up appropriately yesterday with good cognitive function off the propofol so encephalopathy appears to be resolved and creatinine has diminished from 2.5-1.9 and today is the 3rd day of a 1 g of Solu-Medrol but we also noticed a very low TSH and free T4 raising the question of of again in autoimmune or may be vasculitic issue causing pituitary inflammation and hypopituitarism so in addition to the Solu-Medrol pulse dose Re giving him 100 mcg of IV Synthroid and will probably give him a maintenance dose of hydrocortisone following this until we receive the rest of the vasculitic immunologic workup Critical Care Time (minutes): 60 Physical Exam Vital Signs: Vital Signs: Last Vital Signs Temp 95.4 F L 08/21/21 08:00 Pulse 63 08/21/21 11:00 Resp 12 08/21/21 11:00 BP 117/50 L 08/21/21 11:00 Pulse Ox 95 08/21/21 11:00 O2 Del Method 08/21/21 11:00 O2 Flow Rate 55 08/14/21 22:00 FiO2 40 08/21/21 11:00 BMI result Body Mass Index 36.3 Appropriate cognitive function and nonfocal neurologically Excellent cardiovascular function with no evidence of valve disease on bedside echo CT scan appearance of his lungs with somewhat diminished pleural effusions but still has a multilobar bilateral picture certainly in ARDS/diffuse alveolar hemorrhage picture Abdomen distended but positive bowel sounds no evidence of ileus Objective Data Labs CBC & Chem 7: 08/21/21 03:53 08/21/21 03:53 Labs: Laboratory Results - last 24 hr 08/18/21 08/19/21 08/20/21 08:48 06:12 12:02 WBC RBC Hgb Hct MCV MCH MCHC RDW Plt Count MPV Immature Gran % (Auto) Neut % (Auto) Lymph % (Auto) [place] % (Auto) Eos % (Auto) Baso % (Auto) Lymph # (Auto) [place] # (Auto) Eos # (Auto) Baso # (Auto) Abs Immat Gran (auto) Absolute Neuts (auto) Absolute Nucleated RBC Nucleated RBC % (auto) Smear Tech's Comments PT INR APTT Fibrinogen VBG pH VBG pCO2 VBG pO2 VBG HCO3 VBG O2 Saturation VBG Base Excess Sodium Potassium Chloride Carbon Dioxide Anion Gap BUN Creatinine Estim Creat Clear Calc Estimated GFR POC Glucose 250 H Random Glucose Calcium Phosphorus Magnesium Total Bilirubin Direct Bilirubin AST ALT Alkaline Phosphatase Ammonia Total Protein Albumin TSH Free T4 ZAYDA Screen NEGATIVE Blood Type A Positive Antibody Screen NEGATIVE JEFF, Polyspecific NEGATIVE Positive JEFF Work-up TNP Crossmatch See Detail 08/20/21 08/20/21 08/20/21 13:19 13:21 14:00 WBC RBC Hgb Hct MCV MCH MCHC RDW Plt Count MPV Immature Gran % (Auto) Neut % (Auto) Lymph % (Auto) [place] % (Auto) Eos % (Auto) Baso % (Auto) Lymph # (Auto) [place] # (Auto) Eos # (Auto) Baso # (Auto) Abs Immat Gran (auto) Absolute Neuts (auto) Absolute Nucleated RBC Nucleated RBC % (auto) Smear Tech's Comments PT 17.4 H INR 1.5 H APTT 37.2 Fibrinogen VBG pH VBG pCO2 VBG pO2 VBG HCO3 VBG O2 Saturation VBG Base Excess Sodium Potassium Chloride Carbon Dioxide Anion Gap BUN Creatinine Estim Creat Clear Calc Estimated GFR POC Glucose 225 H 210 H Random Glucose Calcium Phosphorus Magnesium Total Bilirubin Direct Bilirubin AST ALT Alkaline Phosphatase Ammonia Total Protein Albumin TSH Free T4 ZAYDA Screen Blood Type Antibody Screen JEFF, Polyspecific Positive JEFF Work-up Crossmatch 08/20/21 08/20/21 08/20/21 15:56 17:03 18:06 WBC RBC Hgb Hct MCV MCH MCHC RDW Plt Count MPV Immature Gran % (Auto) Neut % (Auto) Lymph % (Auto) [place] % (Auto) Eos % (Auto) Baso % (Auto) Lymph # (Auto) [place] # (Auto) Eos # (Auto) Baso # (Auto) Abs Immat Gran (auto) Absolute Neuts (auto) Absolute Nucleated RBC Nucleated RBC % (auto) Smear Tech's Comments PT INR APTT Fibrinogen VBG pH VBG pCO2 VBG pO2 VBG HCO3 VBG O2 Saturation VBG Base Excess Sodium Potassium Chloride Carbon Dioxide Anion Gap BUN Creatinine Estim Creat Clear Calc Estimated GFR POC Glucose 165 H 151 H 133 H Random Glucose Calcium Phosphorus Magnesium Total Bilirubin Direct Bilirubin AST ALT Alkaline Phosphatase Ammonia Total Protein Albumin TSH Free T4 ZAYDA Screen Blood Type Antibody Screen JEFF, Polyspecific Positive JEFF Work-up Crossmatch 08/20/21 08/20/21 08/20/21 19:05 19:32 21:02 WBC 11.7 H RBC 2.69 L Hgb 8.0 L Hct 24.9 L MCV 92.6 MCH 29.7 MCHC 32.1 RDW 16.9 H Plt Count 38 L MPV Not Reportable Immature Gran % (Auto) 0.5 H Neut % (Auto) 91.8 H Lymph % (Auto) 3.4 L [place] % (Auto) 4.2 Eos % (Auto) 0.0 Baso % (Auto) 0.1 Lymph # (Auto) 0.4 L [place] # (Auto) 0.5 Eos # (Auto) 0.0 Baso # (Auto) 0.0 Abs Immat Gran (auto) 0.06 H Absolute Neuts (auto) 10.8 H Absolute Nucleated RBC 0.040 H Nucleated RBC % (auto) 0.3 H Smear Tech's Comments VERIFIED PT INR APTT Fibrinogen VBG pH VBG pCO2 VBG pO2 VBG HCO3 VBG O2 Saturation VBG Base Excess Sodium Potassium Chloride Carbon Dioxide Anion Gap BUN Creatinine Estim Creat Clear Calc Estimated GFR POC Glucose 153 H 170 H Random Glucose Calcium Phosphorus Magnesium Total Bilirubin Direct Bilirubin AST ALT Alkaline Phosphatase Ammonia Total Protein Albumin TSH Free T4 ZAYDA Screen Blood Type Antibody Screen JEFF, Polyspecific Positive JEFF Work-up Crossmatch 08/21/21 08/21/21 08/21/21 00:09 02:01 03:53 WBC RBC Hgb Hct MCV MCH MCHC RDW Plt Count MPV Immature Gran % (Auto) Neut % (Auto) Lymph % (Auto) [place] % (Auto) Eos % (Auto) Baso % (Auto) Lymph # (Auto) [place] # (Auto) Eos # (Auto) Baso # (Auto) Abs Immat Gran (auto) Absolute Neuts (auto) Absolute Nucleated RBC Nucleated RBC % (auto) Smear Tech's Comments PT INR APTT Fibrinogen VBG pH VBG pCO2 VBG pO2 VBG HCO3 VBG O2 Saturation VBG Base Excess Sodium Potassium Chloride Carbon Dioxide Anion Gap BUN Creatinine Estim Creat Clear Calc Estimated GFR POC Glucose 162 H 174 H Random Glucose Calcium Phosphorus Magnesium Total Bilirubin Direct Bilirubin AST ALT Alkaline Phosphatase Ammonia Total Protein Albumin TSH 0.03 L Free T4 0.46 L ZAYDA Screen Blood Type Antibody Screen JEFF, Polyspecific Positive JEFF Work-up Crossmatch 08/21/21 08/21/21 08/21/21 03:53 03:53 03:53 WBC 11.3 H RBC 2.34 L Hgb 7.0 L* Hct 21.6 L MCV 92.3 MCH 29.9 MCHC 32.4 RDW 16.8 H Plt Count 56 L D MPV 11.3 Immature Gran % (Auto) 0.4 Neut % (Auto) 93.0 H Lymph % (Auto) 3.7 L [place] % (Auto) 2.8 Eos % (Auto) 0.0 Baso % (Auto) 0.1 Lymph # (Auto) 0.4 L [place] # (Auto) 0.3 Eos # (Auto) 0.0 Baso # (Auto) 0.0 Abs Immat Gran (auto) 0.04 H Absolute Neuts (auto) 10.5 H Absolute Nucleated RBC 0.030 H Nucleated RBC % (auto) 0.3 H Smear Tech's Comments VERIFIED PT 17.8 H INR 1.5 H APTT 35.7 Fibrinogen VBG pH VBG pCO2 VBG pO2 VBG HCO3 VBG O2 Saturation VBG Base Excess Sodium 150 H Potassium 3.7 Chloride 115 H Carbon Dioxide 23 Anion Gap 16 BUN 144 H Creatinine 1.91 H Estim Creat Clear Calc 43.5 Estimated GFR 35 POC Glucose Random Glucose 208 H D Calcium 7.4 L Phosphorus 7.1 H Magnesium 2.5 Total Bilirubin 3.5 H Direct Bilirubin 2.7 H AST 41 H ALT 7 Alkaline Phosphatase 76 Ammonia Total Protein 6.5 Albumin 2.3 L TSH Free T4 ZAYDA Screen Blood Type Antibody Screen JEFF, Polyspecific Positive JEFF Work-up Crossmatch 08/21/21 08/21/21 08/21/21 03:53 03:53 03:58 WBC RBC Hgb Hct MCV MCH MCHC RDW Plt Count MPV Immature Gran % (Auto) Neut % (Auto) Lymph % (Auto) [place] % (Auto) Eos % (Auto) Baso % (Auto) Lymph # (Auto) [place] # (Auto) Eos # (Auto) Baso # (Auto) Abs Immat Gran (auto) Absolute Neuts (auto) Absolute Nucleated RBC Nucleated RBC % (auto) Smear Tech's Comments PT INR APTT Fibrinogen 215 L VBG pH 7.40 VBG pCO2 36 VBG pO2 54 VBG HCO3 23 VBG O2 Saturation 82.0 VBG Base Excess -1.2 Sodium Potassium Chloride Carbon Dioxide Anion Gap BUN Creatinine Estim Creat Clear Calc Estimated GFR POC Glucose Random Glucose Calcium Phosphorus Magnesium Total Bilirubin Direct Bilirubin AST ALT Alkaline Phosphatase Ammonia 103 H Total Protein Albumin TSH Free T4 ZAYDA Screen Blood Type Antibody Screen JEFF, Polyspecific Positive JEFF Work-up Crossmatch 08/21/21 08/21/21 08/21/21 05:59 08:59 11:04 WBC RBC Hgb Hct MCV MCH MCHC RDW Plt Count MPV Immature Gran % (Auto) Neut % (Auto) Lymph % (Auto) [place] % (Auto) Eos % (Auto) Baso % (Auto) Lymph # (Auto) [place] # (Auto) Eos # (Auto) Baso # (Auto) Abs Immat Gran (auto) Absolute Neuts (auto) Absolute Nucleated RBC Nucleated RBC % (auto) Smear Tech's Comments PT INR APTT Fibrinogen VBG pH VBG pCO2 VBG pO2 VBG HCO3 VBG O2 Saturation VBG Base Excess Sodium Potassium Chloride Carbon Dioxide Anion Gap BUN Creatinine Estim Creat Clear Calc Estimated GFR POC Glucose 193 H 192 H 187 H Random Glucose Calcium Phosphorus Magnesium Total Bilirubin Direct Bilirubin AST ALT Alkaline Phosphatase Ammonia Total Protein Albumin TSH Free T4 ZAYDA Screen Blood Type Antibody Screen JEFF, Polyspecific Positive JEFF Work-up Crossmatch Microbiology Microbiology Results: Microbiology 08/18/21 23:22 Foot Left Gram Stain - Final 08/18/21 23:22 Foot Left Routine Culture - Preliminary Staphylococcus aureus 08/19/21 08:37 Washing - Bronchial Gram Stain - Final 08/19/21 08:37 Washing - Bronchial - Preliminary Yeast 08/17/21 05:48 Blood - Venous Blood Culture - Preliminary No growth after 48 hours. 08/17/21 05:48 Blood - Venous Blood Culture - Preliminary No growth after 48 hours. 08/15/21 05:22 Blood - Venous Blood Culture - Final Staphylococcus aureus 08/15/21 05:22 Blood - Venous Blood Culture - Final Staphylococcus aureus 08/14/21 23:17 Sputum - Induced Gram Stain - Final 08/14/21 23:17 Sputum - Induced Sputum Culture - Final 08/13/21 08:09 Blood - Venous Blood Culture - Final Staphylococcus aureus 08/13/21 08:09 Blood - Venous Blood Culture - Final Staphylococcus aureus 08/11/21 01:50 Blood - Venous Blood Culture - Final Staphylococcus aureus 08/11/21 01:50 Blood - Venous Blood Culture - Final Staphylococcus aureus Progress Note: A&P Assessment and plan (1) Acute respiratory failure: Status: Acute (2) Diffuse pulmonary alveolar hemorrhage: Status: Acute (3) 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: Status: Acute (4) Palpable purpura: Status: Acute (5) Hypernatremia: Status: Acute (6) Pneumonia: Status: Acute (7) Hemoptysis: Status: Acute (8) Thrombocytopenia: Status: Acute (9) SOB (shortness of breath): Status: Acute (10) MSSA bacteremia: Status: Acute (11) Fall: Status: Acute (12) Acute hyponatremia: Status: Acute (13) Acute kidney injury: Status: Acute (14) Chronic kidney disease: Status: Acute (15) Atrial fibrillation, new onset: Status: Acute (16) 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: Status: Acute (17) Hyperlipidemia LDL goal <70: Status: Acute (18) Obesity (BMI 30-39.9): Status: Acute (19) CKD (chronic kidney disease) stage 3, GFR 30-59 ml/min: Status: Acute (20) Other and unspecified hyperlipidemia: Status: Acute (21) Type 2 diabetes mellitus with hyperglycemia, with long-term current use of insulin: Status: Acute (22) Type 2 diabetes mellitus with chronic kidney disease: Status: Acute (23) Essential hypertension: Status: Acute Plan So the plan for the hypopituitarism is in an initial dose now off Synthroid at 100 mcg and probably put him on a maintenance of hydrocortisone as we await the rest of the vasculitic workup Quality Stroke Does the patient have a stroke diagnosis?: No VTE Prior VTE?: No VTE Risk Level:: Medical - moderate - high VTE Device Contraindication: Treatment Not Indicated VTE Drug Contraindication: N/A - Med Ordered
[2021-08-21] MEDS: Caspofungin Acetate 70 MG in 0.9 % Sodium Chloride 250 ML 250 MG IV (11:37)
[2021-08-21 12:09] LABS: Basophils Percent Auto 0.1 % (0-2); Hematocrit 25.2 % (42.0-52.0); Hemoglobin 8.3 g/dl (14.0-18.0); Imm Gran Abs Auto 0.06 X10*3/uL (0.00-0.03); Imm Gran Pct Auto 0.6 % (0.0-0.4); Lymphocytes Absolute Auto 0.3 X10*3/uL (1.2-4.9); Lymphocytes Percent Auto 3.4 % (20-40); MANUAL DIFF FLAG SCAN; Mean Corpuscular HGB Conc 32.9 g/dl (31.0-36.0); Mean Corpuscular Hemoglobin 30.3 pg (27.0-33.0); Mean Platelet Volume 12.8 fL (9.4-12.4); Monocytes Absolute Auto 0.3 X10*3/uL (0.1-1.2); Monocytes Percent Auto 2.7 % (2-11); NRBC Pct Auto 0.2 /100WBC (0.0-0.2); Neutrophils Absolute Auto 8.7 x10*3/uL (2.0-8.3); Neutrophils Percent Auto 93.2 % (45-73); Red Blood Count 2.74 X10*6/uL (4.60-5.80); Red Cell Distribution Width 16.3 % (11.0-16.0); SCAN SMEAR FLAG 1; White Blood Count 9.3 X10*3/uL (4.8-10.8)
[2021-08-21 12:14] LABS: Platelet Count 47 X10*3/uL (160-400)
--- NOTE | 2021-08-21 12:18 | MHC.CM.PN ---
Pt continues intubation in ICU: no plans to d/c - pt will need STR following his prolonged ICU stay. Pt does not have a HCP and will need to name an agent prior to transfer or he may require a guardianship. CM to follow
[2021-08-21 12:42] LABS: Anion Gap 14 (12-20); Calcium 7.5 mg/dL (8.4-10.2); Carbon Dioxide 23 mmol/L (22-29); Chloride 113 mmol/L (96-108); Creatinine Clr Calc Pharmacy 41.3; Estimated Glomerular Filt Rate 33; Glucose Random 212 mg/dL (60-115); Potassium 3.9 mmol/L (3.3-5.1); Sodium 146 mmol/L (135-145)
[2021-08-21 12:43] LABS: SLIDE REVIEW VERIFIED
[2021-08-21 13:00] LABS: Blood Urea Nitrogen 152 mg/dL (9-16)
[2021-08-21 13:07] LABS: Glucose, Whole Blood 189 mg/dL (60-115)
[2021-08-21 14:51] LABS: Haptoglobin 96 mg/dL (43-212)
[2021-08-21] MEDS: rifAXIMin 550 MG TABLET PO ×2 (15:12→21:41)
[2021-08-21] MEDS: Insulin Regular/NS 100 UNIT/100 ML PLAST..BAG IVCONT (15:14)
[2021-08-21 15:22] LABS: Glucose, Whole Blood 186 mg/dL (60-115)
[2021-08-21] MEDS: Furosemide 100 MG/10 ML VIAL 80 MG IVPUSH (15:44)
[2021-08-21] MEDS: fentaNYL citrate/PF 100 MCG/2 ML VIAL 75 MCG IVPUSH (16:12)
[2021-08-21] MEDS: Furosemide 200 MG in 0.9 % Sodium Chloride 80 ML IVCONT (16:32)
--- NOTE | 2021-08-21 16:44 | PM.PNGS ---
Subjective Subjective Date of Service: 08/21/21 Interval history: Patient intubated and sedated Physical Exam Vital Signs: Vital Signs: Last Vital Signs Temp 97.5 F 08/21/21 16:00 Pulse 83 08/21/21 16:00 Resp 13 08/21/21 16:00 BP 140/51 H 08/21/21 16:00 Pulse Ox 91 L 08/21/21 16:00 O2 Del Method 08/21/21 16:00 O2 Flow Rate 55 08/14/21 22:00 FiO2 50 08/21/21 16:00 BMI result Body Mass Index 36.3 Const: General: patient obtunded Nutritional Appearance: well nourished Orientation/consciousness: patient obtunded Resp: Other: Breathing on vent sats 91-92 % Neuro: General: patient obtunded Extrem: Other: Swelling noted at the dorsum plantar surface of the left foot with a callus at this location. There is a bogginess to palpation but no definite fluctuance. Objective Data Active Medications Atorvastatin Calcium (Atorvastatin Calcium 40 Mg Tablet) 40 mg PO BEDTIME MENG Last Admin: 08/20/21 21:17 Dose: Not Given Documented By: NELI Non-Admin Reason: wm tube not patent Chlorhexidine Gluconate (Chlorhexidine Gluc Oral Rinse 15 Ml Mouthwash) 15 ml BUCCAL TID MENG Last Admin: 08/21/21 15:12 Dose: 15 ml Documented By: MELODIE Dextrose (Dextrose 50 % 25 Gm/50 Ml Syringe) 25 gm IVPUSH Q30M PRN PRN Reason: Nursing Actions in Insulin Infusion Protocol Hydrocortisone Sodium Succinate (Hydrocortisone Sod Succ/Pf 100 Mg Vial) 25 mg IVPUSH Q12H MENG Norepinephrine Bitartrate (Levophed) 8 mg in 250 mls @ 0 mls/hr IVCONT .Q0M MENG; Protocol Last Titration: 08/20/21 13:00 Dose: 0 mcg/kg/min, 0 mls/hr Documented By: JUANA Propofol (Diprivan) 1,000 mg in 100 mls @ 0 mls/hr IVCONT .Q0M MENG; Protocol Last Admin: 08/21/21 08:48 Dose: 20 mcg/kg/min, 11.24 mls/hr Documented By: MELODIE Insulin Human Regular (Myxredlin) 100 unit in 100 mls @ 0 mls/hr IVCONT .Q0M MENG; Protocol Last Admin: 08/21/21 15:14 Dose: 4 unit/hr, 4 mls/hr Documented By: MELODIE Co-signed By: GERMAINE Nafcillin Sodium 2 gm/ Sodium (Chloride) 100 mls @ 200 mls/hr IV Q4H MENG Last Infusion: 08/21/21 15:42 Dose: 0 mls/hr Documented By: MELODIE Furosemide 200 mg/ Sodium (Chloride) 100 mls @ 5 mls/hr IVCONT .Q20H MENG Last Admin: 08/21/21 16:32 Dose: 10 mg/hr, 5 mls/hr Documented By: MELODIE Insulin Glargine (Insulin Glargine,Hum.Rec.Anlog 100 Unit/Ml 10 Ml Vial) 20 unit SUBCUT DAILY MENG Last Admin: 08/21/21 08:49 Dose: 20 unit Documented By: MELODIE Lidocaine (Lidocaine 4 % Patch Adh..Patch) 1 patch TRANSDERMA DAILY MENG; Protocol Last Admin: 08/20/21 08:16 Dose: 1 patch Documented By: JUANA Rifaximin (Rifaximin 550 Mg Tablet) 550 mg PO TID MENG Last Admin: 08/21/21 15:12 Dose: 550 mg Documented By: MELODIE Sevelamer Carbonate (Sevelamer Carbonate Powder 800 Mg Powd.Pack) 800 mg PO TIDWM MENG Last Admin: 08/21/21 16:14 Dose: 800 mg Documented By: MELODIE Sodium Bicarbonate (Sodium Bicarbonate 650 Mg Tablet) 650 mg G-TUBE Q6H MENG Last Admin: 08/21/21 15:12 Dose: 650 mg Documented By: MELODIE Sodium Chloride (0.9 % Sodium Chloride Flush 3 Ml Syringe) 3 ml IVFLUSH QSHIFT MENG Last Admin: 08/21/21 15:12 Dose: 3 ml Documented By: MELODIE Thiamine HCl (Thiamine Hcl 100 Mg Tablet) 100 mg PO DAILY MENG Last Admin: 08/21/21 09:08 Dose: 100 mg Documented By: MELODIE Labs CBC & Chem 7: 08/21/21 12:02 08/21/21 12:02 Labs: Laboratory Results - last 24 hr 08/18/21 08/19/21 08/19/21 08:48 05:51 06:12 MCV MCH MCHC RDW Plt Count MPV Immature Gran % (Auto) Neut % (Auto) Lymph % (Auto) [place] % (Auto) Eos % (Auto) Baso % (Auto) Lymph # (Auto) [place] # (Auto) Eos # (Auto) Baso # (Auto) Abs Immat Gran (auto) Absolute Neuts (auto) Absolute Nucleated RBC Nucleated RBC % (auto) Smear Tech's Comments Haptoglobin 96 PT INR APTT Fibrinogen VBG pH VBG pCO2 VBG pO2 VBG HCO3 VBG O2 Saturation VBG Base Excess Anion Gap Estim Creat Clear Calc Estimated GFR POC Glucose Random Glucose Calcium Phosphorus Magnesium Total Bilirubin Direct Bilirubin AST ALT Alkaline Phosphatase Ammonia Total Protein Albumin TSH Free T4 Urine Immunofixation ZAYDA Titer TNP ZAYDA Titer 2 TNP ZAYDA Titer 3 TNP ZAYDA Pattern TNP ZAYDA Pattern 2 TNP ZAYDA Pattern 3 TNP Blood Type A Positive Antibody Screen NEGATIVE JEFF, Polyspecific NEGATIVE Positive JEFF Work-up TNP Crossmatch See Detail 08/19/21 08/20/21 08/20/21 18:06 17:03 18:06 MCV MCH MCHC RDW Plt Count MPV Immature Gran % (Auto) Neut % (Auto) Lymph % (Auto) [place] % (Auto) Eos % (Auto) Baso % (Auto) Lymph # (Auto) [place] # (Auto) Eos # (Auto) Baso # (Auto) Abs Immat Gran (auto) Absolute Neuts (auto) Absolute Nucleated RBC Nucleated RBC % (auto) Smear Tech's Comments Haptoglobin PT INR APTT Fibrinogen VBG pH VBG pCO2 VBG pO2 VBG HCO3 VBG O2 Saturation VBG Base Excess Anion Gap Estim Creat Clear Calc Estimated GFR POC Glucose 151 H 133 H Random Glucose Calcium Phosphorus Magnesium Total Bilirubin Direct Bilirubin AST ALT Alkaline Phosphatase Ammonia Total Protein Albumin TSH Free T4 Urine Immunofixation ZAYDA Titer ZAYDA Titer 2 ZAYDA Titer 3 ZAYDA Pattern ZAYDA Pattern 2 ZAYDA Pattern 3 Blood Type Antibody Screen JEFF, Polyspecific Positive JEFF Work-up Crossmatch 08/20/21 08/20/21 08/20/21 19:05 19:32 21:02 MCV 92.6 MCH 29.7 MCHC 32.1 RDW 16.9 H Plt Count 38 L MPV Not Reportable Immature Gran % (Auto) 0.5 H Neut % (Auto) 91.8 H Lymph % (Auto) 3.4 L [place] % (Auto) 4.2 Eos % (Auto) 0.0 Baso % (Auto) 0.1 Lymph # (Auto) 0.4 L [place] # (Auto) 0.5 Eos # (Auto) 0.0 Baso # (Auto) 0.0 Abs Immat Gran (auto) 0.06 H Absolute Neuts (auto) 10.8 H Absolute Nucleated RBC 0.040 H Nucleated RBC % (auto) 0.3 H Smear Tech's Comments VERIFIED Haptoglobin PT INR APTT Fibrinogen VBG pH VBG pCO2 VBG pO2 VBG HCO3 VBG O2 Saturation VBG Base Excess Anion Gap Estim Creat Clear Calc Estimated GFR POC Glucose 153 H 170 H Random Glucose Calcium Phosphorus Magnesium Total Bilirubin Direct Bilirubin AST ALT Alkaline Phosphatase Ammonia Total Protein Albumin TSH Free T4 Urine Immunofixation ZAYDA Titer ZAYDA Titer 2 ZAYDA Titer 3 ZAYDA Pattern ZAYDA Pattern 2 ZAYDA Pattern 3 Blood Type Antibody Screen JEFF, Polyspecific Positive JEFF Work-up Crossmatch 08/21/21 08/21/21 08/21/21 00:09 02:01 03:53 MCV MCH MCHC RDW Plt Count MPV Immature Gran % (Auto) Neut % (Auto) Lymph % (Auto) [place] % (Auto) Eos % (Auto) Baso % (Auto) Lymph # (Auto) [place] # (Auto) Eos # (Auto) Baso # (Auto) Abs Immat Gran (auto) Absolute Neuts (auto) Absolute Nucleated RBC Nucleated RBC % (auto) Smear Tech's Comments Haptoglobin PT INR APTT Fibrinogen VBG pH VBG pCO2 VBG pO2 VBG HCO3 VBG O2 Saturation VBG Base Excess Anion Gap Estim Creat Clear Calc Estimated GFR POC Glucose 162 H 174 H Random Glucose Calcium Phosphorus Magnesium Total Bilirubin Direct Bilirubin AST ALT Alkaline Phosphatase Ammonia Total Protein Albumin TSH 0.03 L Free T4 0.46 L Urine Immunofixation ZAYDA Titer ZAYDA Titer 2 ZAYDA Titer 3 ZAYDA Pattern ZAYDA Pattern 2 ZAYDA Pattern 3 Blood Type Antibody Screen JEFF, Polyspecific Positive JEFF Work-up Crossmatch 08/21/21 08/21/21 08/21/21 03:53 03:53 03:53 MCV 92.3 MCH 29.9 MCHC 32.4 RDW 16.8 H Plt Count 56 L D MPV 11.3 Immature Gran % (Auto) 0.4 Neut % (Auto) 93.0 H Lymph % (Auto) 3.7 L [place] % (Auto) 2.8 Eos % (Auto) 0.0 Baso % (Auto) 0.1 Lymph # (Auto) 0.4 L [place] # (Auto) 0.3 Eos # (Auto) 0.0 Baso # (Auto) 0.0 Abs Immat Gran (auto) 0.04 H Absolute Neuts (auto) 10.5 H Absolute Nucleated RBC 0.030 H Nucleated RBC % (auto) 0.3 H Smear Tech's Comments VERIFIED Haptoglobin PT 17.8 H INR 1.5 H APTT 35.7 Fibrinogen VBG pH VBG pCO2 VBG pO2 VBG HCO3 VBG O2 Saturation VBG Base Excess Anion Gap 16 Estim Creat Clear Calc 43.5 Estimated GFR 35 POC Glucose Random Glucose 208 H D Calcium 7.4 L Phosphorus 7.1 H Magnesium 2.5 Total Bilirubin 3.5 H Direct Bilirubin 2.7 H AST 41 H ALT 7 Alkaline Phosphatase 76 Ammonia Total Protein 6.5 Albumin 2.3 L TSH Free T4 Urine Immunofixation ZAYDA Titer ZAYDA Titer 2 ZAYDA Titer 3 ZAYDA Pattern ZAYDA Pattern 2 ZAYDA Pattern 3 Blood Type Antibody Screen JEFF, Polyspecific Positive JEFF Work-up Crossmatch 08/21/21 08/21/21 08/21/21 03:53 03:53 03:58 MCV MCH MCHC RDW Plt Count MPV Immature Gran % (Auto) Neut % (Auto) Lymph % (Auto) [place] % (Auto) Eos % (Auto) Baso % (Auto) Lymph # (Auto) [place] # (Auto) Eos # (Auto) Baso # (Auto) Abs Immat Gran (auto) Absolute Neuts (auto) Absolute Nucleated RBC Nucleated RBC % (auto) Smear Tech's Comments Haptoglobin PT INR APTT Fibrinogen 215 L VBG pH 7.40 VBG pCO2 36 VBG pO2 54 VBG HCO3 23 VBG O2 Saturation 82.0 VBG Base Excess -1.2 Anion Gap Estim Creat Clear Calc Estimated GFR POC Glucose Random Glucose Calcium Phosphorus Magnesium Total Bilirubin Direct Bilirubin AST ALT Alkaline Phosphatase Ammonia 103 H Total Protein Albumin TSH Free T4 Urine Immunofixation ZAYDA Titer ZAYDA Titer 2 ZAYDA Titer 3 ZAYDA Pattern ZAYDA Pattern 2 ZAYDA Pattern 3 Blood Type Antibody Screen JEFF, Polyspecific Positive JEFF Work-up Crossmatch 08/21/21 08/21/21 08/21/21 05:59 08:59 11:04 MCV MCH MCHC RDW Plt Count MPV Immature Gran % (Auto) Neut % (Auto) Lymph % (Auto) [place] % (Auto) Eos % (Auto) Baso % (Auto) Lymph # (Auto) [place] # (Auto) Eos # (Auto) Baso # (Auto) Abs Immat Gran (auto) Absolute Neuts (auto) Absolute Nucleated RBC Nucleated RBC % (auto) Smear Tech's Comments Haptoglobin PT INR APTT Fibrinogen VBG pH VBG pCO2 VBG pO2 VBG HCO3 VBG O2 Saturation VBG Base Excess Anion Gap Estim Creat Clear Calc Estimated GFR POC Glucose 193 H 192 H 187 H Random Glucose Calcium Phosphorus Magnesium Total Bilirubin Direct Bilirubin AST ALT Alkaline Phosphatase Ammonia Total Protein Albumin TSH Free T4 Urine Immunofixation ZAYDA Titer ZAYDA Titer 2 ZAYDA Titer 3 ZAYDA Pattern ZAYDA Pattern 2 ZAYDA Pattern 3 Blood Type Antibody Screen JEFF, Polyspecific Positive JEFF Work-up Crossmatch 08/21/21 08/21/21 08/21/21 12:02 12:02 13:02 MCV 92.0 MCH 30.3 MCHC 32.9 RDW 16.3 H Plt Count 47 L MPV 12.8 H Immature Gran % (Auto) 0.6 H Neut % (Auto) 93.2 H Lymph % (Auto) 3.4 L [place] % (Auto) 2.7 Eos % (Auto) 0.0 Baso % (Auto) 0.1 Lymph # (Auto) 0.3 L [place] # (Auto) 0.3 Eos # (Auto) 0.0 Baso # (Auto) 0.0 Abs Immat Gran (auto) 0.06 H Absolute Neuts (auto) 8.7 H Absolute Nucleated RBC 0.020 H Nucleated RBC % (auto) 0.2 Smear Tech's Comments VERIFIED Haptoglobin PT INR APTT Fibrinogen VBG pH VBG pCO2 VBG pO2 VBG HCO3 VBG O2 Saturation VBG Base Excess Anion Gap 14 Estim Creat Clear Calc 41.3 Estimated GFR 33 POC Glucose 189 H Random Glucose 212 H Calcium 7.5 L Phosphorus Magnesium Total Bilirubin Direct Bilirubin AST ALT Alkaline Phosphatase Ammonia Total Protein Albumin TSH Free T4 Urine Immunofixation ZAYDA Titer ZAYDA Titer 2 ZAYDA Titer 3 ZAYDA Pattern ZAYDA Pattern 2 ZAYDA Pattern 3 Blood Type Antibody Screen JEFF, Polyspecific Positive JEFF Work-up Crossmatch 08/21/21 15:18 MCV MCH MCHC RDW Plt Count MPV Immature Gran % (Auto) Neut % (Auto) Lymph % (Auto) [place] % (Auto) Eos % (Auto) Baso % (Auto) Lymph # (Auto) [place] # (Auto) Eos # (Auto) Baso # (Auto) Abs Immat Gran (auto) Absolute Neuts (auto) Absolute Nucleated RBC Nucleated RBC % (auto) Smear Tech's Comments Haptoglobin PT INR APTT Fibrinogen VBG pH VBG pCO2 VBG pO2 VBG HCO3 VBG O2 Saturation VBG Base Excess Anion Gap Estim Creat Clear Calc Estimated GFR POC Glucose 186 H Random Glucose Calcium Phosphorus Magnesium Total Bilirubin Direct Bilirubin AST ALT Alkaline Phosphatase Ammonia Total Protein Albumin TSH Free T4 Urine Immunofixation ZAYDA Titer ZAYDA Titer 2 ZAYDA Titer 3 ZAYDA Pattern ZAYDA Pattern 2 ZAYDA Pattern 3 Blood Type Antibody Screen JEFF, Polyspecific Positive JEFF Work-up Crossmatch Microbiology Microbiology Results: Microbiology 08/18/21 23:22 Gram Stain - Final Foot Left Routine Culture - Preliminary Staphylococcus aureus 08/19/21 08:37 Gram Stain - Final Washing - Bronchial - Preliminary Yeast Procedures Date of Service Date of Service: 08/21/21 Abscess I/D Consent for Procedure: Elective - informed consent obtained Site: foot Side (if applicable): left Anesthetic used: lidocaine 1% Technique: incised with #11 blade Amount of fluid (mL): 5 Irrigation: Yes Packing used?: plain Progress Note: A&P Assessment and plan (1) Abscess of left foot: Status: Acute Plan 58-year-old male patient presenting with an area of swelling and callus in the foot. Review of CT of the left leg and foot confirms a fluid collection in the foot which may be extending up towards the calf. Findings are suggestive of an abscess. I recommended incision and drainage of this abscess. I reviewed procedure, alternatives, and risks with the patient's and she consents to the surgery. This will be performed at the bedside under local anesthesia. Procedure was performed and a large collection of pus identified. Wound cultures were obtained. Wounds were packed with quarter-inch Nu Gauze and covered with dry sterile dressings. Dressings may be changed as necessary. Time Spent With Patient Time: Total time spent is greater than 50% in coordination of care (as documented) at patient's floor/unit and/or counseling patient: Quality Stroke Does the patient have a stroke diagnosis?: No VTE Prior VTE?: No VTE Risk Level:: Medical - moderate - high VTE Device Contraindication: Treatment Not Indicated VTE Drug Contraindication: N/A - Med Ordered
[2021-08-21 17:16] LABS: Glucose, Whole Blood 188 mg/dL (60-115)
--- NOTE | 2021-08-21 18:03 | PM.PNNEP ---
Subjective Subjective Date of Service: 08/21/21 Principal diagnosis: AF Interval history: Chart Reviewed. Events noted. Physical Exam Vital Signs: Vital Signs: Last Vital Signs Temp 97.2 F 08/21/21 17:00 Pulse 73 08/21/21 17:00 Resp 14 08/21/21 17:00 BP 127/56 L 08/21/21 17:00 Pulse Ox 96 08/21/21 17:00 O2 Del Method 08/21/21 17:00 O2 Flow Rate 55 08/14/21 22:00 FiO2 55 08/21/21 17:00 BMI result Body Mass Index 36.3 Const: Other: Sedated General: no acute distress Nutritional Appearance: Edematous HEENT: Head: Yes normocephalic and Yes atraumatic Neck: Neck: Yes no JVD Resp: Other: Mechanical Breath sounds Cardio: Jugular venous distension: no JVD Rate: regular rate Rhythm: regular rhythm Heart sounds: S1 normal heart sound present and S2 normal heart sound present GI: Auscultation: normal bowel sounds Skin: General skin exam: petechiae and purpura Neuro: Other: Sedated Extrem: General: Yes edema Objective Data Labs CBC & Chem 7: 08/21/21 12:02 08/21/21 12:02 Labs: Laboratory Results - last 24 hr 08/18/21 08/19/21 08/19/21 08:48 05:51 06:12 WBC RBC Hgb Hct MCV MCH MCHC RDW Plt Count MPV Immature Gran % (Auto) Neut % (Auto) Lymph % (Auto) Summers % (Auto) Eos % (Auto) Baso % (Auto) Lymph # (Auto) Summers # (Auto) Eos # (Auto) Baso # (Auto) Abs Immat Gran (auto) Absolute Neuts (auto) Absolute Nucleated RBC Nucleated RBC % (auto) Smear Tech's Comments Haptoglobin 96 PT INR APTT Fibrinogen VBG pH VBG pCO2 VBG pO2 VBG HCO3 VBG O2 Saturation VBG Base Excess Sodium Potassium Chloride Carbon Dioxide Anion Gap BUN Creatinine Estim Creat Clear Calc Estimated GFR POC Glucose Random Glucose Calcium Phosphorus Magnesium Total Bilirubin Direct Bilirubin AST ALT Alkaline Phosphatase Ammonia Total Protein Albumin TSH Free T4 Urine Immunofixation ZAYDA Titer TNP ZAYDA Titer 2 TNP ZAYDA Titer 3 TNP ZAYDA Pattern TNP ZAYDA Pattern 2 TNP ZAYDA Pattern 3 TNP Blood Type A Positive Antibody Screen NEGATIVE JEFF, Polyspecific NEGATIVE Positive JEFF Work-up TNP Crossmatch See Detail 08/19/21 08/20/21 08/20/21 18:06 18:06 19:05 WBC RBC Hgb Hct MCV MCH MCHC RDW Plt Count MPV Immature Gran % (Auto) Neut % (Auto) Lymph % (Auto) Summers % (Auto) Eos % (Auto) Baso % (Auto) Lymph # (Auto) Summers # (Auto) Eos # (Auto) Baso # (Auto) Abs Immat Gran (auto) Absolute Neuts (auto) Absolute Nucleated RBC Nucleated RBC % (auto) Smear Tech's Comments Haptoglobin PT INR APTT Fibrinogen VBG pH VBG pCO2 VBG pO2 VBG HCO3 VBG O2 Saturation VBG Base Excess Sodium Potassium Chloride Carbon Dioxide Anion Gap BUN Creatinine Estim Creat Clear Calc Estimated GFR POC Glucose 133 H 153 H Random Glucose Calcium Phosphorus Magnesium Total Bilirubin Direct Bilirubin AST ALT Alkaline Phosphatase Ammonia Total Protein Albumin TSH Free T4 Urine Immunofixation ZAYDA Titer ZAYDA Titer 2 ZAYDA Titer 3 ZAYDA Pattern ZAYDA Pattern 2 ZAYDA Pattern 3 Blood Type Antibody Screen JEFF, Polyspecific Positive JEFF Work-up Crossmatch 08/20/21 08/20/21 08/21/21 19:32 21:02 00:09 WBC 11.7 H RBC 2.69 L Hgb 8.0 L Hct 24.9 L MCV 92.6 MCH 29.7 MCHC 32.1 RDW 16.9 H Plt Count 38 L MPV Not Reportable Immature Gran % (Auto) 0.5 H Neut % (Auto) 91.8 H Lymph % (Auto) 3.4 L Summers % (Auto) 4.2 Eos % (Auto) 0.0 Baso % (Auto) 0.1 Lymph # (Auto) 0.4 L Summers # (Auto) 0.5 Eos # (Auto) 0.0 Baso # (Auto) 0.0 Abs Immat Gran (auto) 0.06 H Absolute Neuts (auto) 10.8 H Absolute Nucleated RBC 0.040 H Nucleated RBC % (auto) 0.3 H Smear Tech's Comments VERIFIED Haptoglobin PT INR APTT Fibrinogen VBG pH VBG pCO2 VBG pO2 VBG HCO3 VBG O2 Saturation VBG Base Excess Sodium Potassium Chloride Carbon Dioxide Anion Gap BUN Creatinine Estim Creat Clear Calc Estimated GFR POC Glucose 170 H 162 H Random Glucose Calcium Phosphorus Magnesium Total Bilirubin Direct Bilirubin AST ALT Alkaline Phosphatase Ammonia Total Protein Albumin TSH Free T4 Urine Immunofixation ZAYDA Titer ZAYDA Titer 2 ZAYDA Titer 3 ZAYDA Pattern ZAYDA Pattern 2 ZAYDA Pattern 3 Blood Type Antibody Screen JEFF, Polyspecific Positive JEFF Work-up Crossmatch 08/21/21 08/21/21 08/21/21 02:01 03:53 03:53 WBC 11.3 H RBC 2.34 L Hgb 7.0 L* Hct 21.6 L MCV 92.3 MCH 29.9 MCHC 32.4 RDW 16.8 H Plt Count 56 L D MPV 11.3 Immature Gran % (Auto) 0.4 Neut % (Auto) 93.0 H Lymph % (Auto) 3.7 L Summers % (Auto) 2.8 Eos % (Auto) 0.0 Baso % (Auto) 0.1 Lymph # (Auto) 0.4 L Summers # (Auto) 0.3 Eos # (Auto) 0.0 Baso # (Auto) 0.0 Abs Immat Gran (auto) 0.04 H Absolute Neuts (auto) 10.5 H Absolute Nucleated RBC 0.030 H Nucleated RBC % (auto) 0.3 H Smear Tech's Comments VERIFIED Haptoglobin PT INR APTT Fibrinogen VBG pH VBG pCO2 VBG pO2 VBG HCO3 VBG O2 Saturation VBG Base Excess Sodium Potassium Chloride Carbon Dioxide Anion Gap BUN Creatinine Estim Creat Clear Calc Estimated GFR POC Glucose 174 H Random Glucose Calcium Phosphorus Magnesium Total Bilirubin Direct Bilirubin AST ALT Alkaline Phosphatase Ammonia Total Protein Albumin TSH 0.03 L Free T4 0.46 L Urine Immunofixation ZAYDA Titer ZAYDA Titer 2 ZAYDA Titer 3 ZAYDA Pattern ZAYDA Pattern 2 ZAYDA Pattern 3 Blood Type Antibody Screen JEFF, Polyspecific Positive JEFF Work-up Crossmatch 08/21/21 08/21/21 08/21/21 03:53 03:53 03:53 WBC RBC Hgb Hct MCV MCH MCHC RDW Plt Count MPV Immature Gran % (Auto) Neut % (Auto) Lymph % (Auto) Summers % (Auto) Eos % (Auto) Baso % (Auto) Lymph # (Auto) Summers # (Auto) Eos # (Auto) Baso # (Auto) Abs Immat Gran (auto) Absolute Neuts (auto) Absolute Nucleated RBC Nucleated RBC % (auto) Smear Tech's Comments Haptoglobin PT 17.8 H INR 1.5 H APTT 35.7 Fibrinogen VBG pH VBG pCO2 VBG pO2 VBG HCO3 VBG O2 Saturation VBG Base Excess Sodium 150 H Potassium 3.7 Chloride 115 H Carbon Dioxide 23 Anion Gap 16 BUN 144 H Creatinine 1.91 H Estim Creat Clear Calc 43.5 Estimated GFR 35 POC Glucose Random Glucose 208 H D Calcium 7.4 L Phosphorus 7.1 H Magnesium 2.5 Total Bilirubin 3.5 H Direct Bilirubin 2.7 H AST 41 H ALT 7 Alkaline Phosphatase 76 Ammonia 103 H Total Protein 6.5 Albumin 2.3 L TSH Free T4 Urine Immunofixation ZAYDA Titer ZAYDA Titer 2 ZAYDA Titer 3 ZAYDA Pattern ZAYDA Pattern 2 ZAYDA Pattern 3 Blood Type Antibody Screen JEFF, Polyspecific Positive JEFF Work-up Crossmatch 08/21/21 08/21/21 08/21/21 03:53 03:58 05:59 WBC RBC Hgb Hct MCV MCH MCHC RDW Plt Count MPV Immature Gran % (Auto) Neut % (Auto) Lymph % (Auto) Summers % (Auto) Eos % (Auto) Baso % (Auto) Lymph # (Auto) Summers # (Auto) Eos # (Auto) Baso # (Auto) Abs Immat Gran (auto) Absolute Neuts (auto) Absolute Nucleated RBC Nucleated RBC % (auto) Smear Tech's Comments Haptoglobin PT INR APTT Fibrinogen 215 L VBG pH 7.40 VBG pCO2 36 VBG pO2 54 VBG HCO3 23 VBG O2 Saturation 82.0 VBG Base Excess -1.2 Sodium Potassium Chloride Carbon Dioxide Anion Gap BUN Creatinine Estim Creat Clear Calc Estimated GFR POC Glucose 193 H Random Glucose Calcium Phosphorus Magnesium Total Bilirubin Direct Bilirubin AST ALT Alkaline Phosphatase Ammonia Total Protein Albumin TSH Free T4 Urine Immunofixation ZAYDA Titer ZAYDA Titer 2 ZAYDA Titer 3 ZAYDA Pattern ZAYDA Pattern 2 ZAYDA Pattern 3 Blood Type Antibody Screen JEFF, Polyspecific Positive JEFF Work-up Crossmatch 08/21/21 08/21/21 08/21/21 08:59 11:04 12:02 WBC 9.3 RBC 2.74 L Hgb 8.3 L Hct 25.2 L MCV 92.0 MCH 30.3 MCHC 32.9 RDW 16.3 H Plt Count 47 L MPV 12.8 H Immature Gran % (Auto) 0.6 H Neut % (Auto) 93.2 H Lymph % (Auto) 3.4 L Summers % (Auto) 2.7 Eos % (Auto) 0.0 Baso % (Auto) 0.1 Lymph # (Auto) 0.3 L Summers # (Auto) 0.3 Eos # (Auto) 0.0 Baso # (Auto) 0.0 Abs Immat Gran (auto) 0.06 H Absolute Neuts (auto) 8.7 H Absolute Nucleated RBC 0.020 H Nucleated RBC % (auto) 0.2 Smear Tech's Comments VERIFIED Haptoglobin PT INR APTT Fibrinogen VBG pH VBG pCO2 VBG pO2 VBG HCO3 VBG O2 Saturation VBG Base Excess Sodium Potassium Chloride Carbon Dioxide Anion Gap BUN Creatinine Estim Creat Clear Calc Estimated GFR POC Glucose 192 H 187 H Random Glucose Calcium Phosphorus Magnesium Total Bilirubin Direct Bilirubin AST ALT Alkaline Phosphatase Ammonia Total Protein Albumin TSH Free T4 Urine Immunofixation ZAYDA Titer ZAYDA Titer 2 ZAYDA Titer 3 ZAYDA Pattern ZAYDA Pattern 2 ZAYDA Pattern 3 Blood Type Antibody Screen JEFF, Polyspecific Positive JEFF Work-up Crossmatch 08/21/21 08/21/21 08/21/21 12:02 13:02 15:18 WBC RBC Hgb Hct MCV MCH MCHC RDW Plt Count MPV Immature Gran % (Auto) Neut % (Auto) Lymph % (Auto) Summers % (Auto) Eos % (Auto) Baso % (Auto) Lymph # (Auto) Summers # (Auto) Eos # (Auto) Baso # (Auto) Abs Immat Gran (auto) Absolute Neuts (auto) Absolute Nucleated RBC Nucleated RBC % (auto) Smear Tech's Comments Haptoglobin PT INR APTT Fibrinogen VBG pH VBG pCO2 VBG pO2 VBG HCO3 VBG O2 Saturation VBG Base Excess Sodium 146 H Potassium 3.9 Chloride 113 H Carbon Dioxide 23 Anion Gap 14 BUN 152 H Creatinine 2.04 H Estim Creat Clear Calc 41.3 Estimated GFR 33 POC Glucose 189 H 186 H Random Glucose 212 H Calcium 7.5 L Phosphorus Magnesium Total Bilirubin Direct Bilirubin AST ALT Alkaline Phosphatase Ammonia Total Protein Albumin TSH Free T4 Urine Immunofixation ZAYDA Titer ZAYDA Titer 2 ZAYDA Titer 3 ZAYDA Pattern ZAYDA Pattern 2 ZAYDA Pattern 3 Blood Type Antibody Screen JEFF, Polyspecific Positive JEFF Work-up Crossmatch 08/21/21 17:09 WBC RBC Hgb Hct MCV MCH MCHC RDW Plt Count MPV Immature Gran % (Auto) Neut % (Auto) Lymph % (Auto) Summers % (Auto) Eos % (Auto) Baso % (Auto) Lymph # (Auto) Summers # (Auto) Eos # (Auto) Baso # (Auto) Abs Immat Gran (auto) Absolute Neuts (auto) Absolute Nucleated RBC Nucleated RBC % (auto) Smear Tech's Comments Haptoglobin PT INR APTT Fibrinogen VBG pH VBG pCO2 VBG pO2 VBG HCO3 VBG O2 Saturation VBG Base Excess Sodium Potassium Chloride Carbon Dioxide Anion Gap BUN Creatinine Estim Creat Clear Calc Estimated GFR POC Glucose 188 H Random Glucose Calcium Phosphorus Magnesium Total Bilirubin Direct Bilirubin AST ALT Alkaline Phosphatase Ammonia Total Protein Albumin TSH Free T4 Urine Immunofixation ZAYDA Titer ZAYDA Titer 2 ZAYDA Titer 3 ZAYDA Pattern ZAYDA Pattern 2 ZAYDA Pattern 3 Blood Type Antibody Screen JEFF, Polyspecific Positive JEFF Work-up Crossmatch Microbiology Microbiology Results: Microbiology 08/17/21 05:48 Blood - Venous Blood Culture - Preliminary Prelim: GPC Gram Stain only 08/18/21 23:22 Foot Left Gram Stain - Final 08/18/21 23:22 Foot Left Routine Culture - Preliminary Staphylococcus aureus 08/19/21 08:37 Washing - Bronchial Gram Stain - Final 08/19/21 08:37 Washing - Bronchial - Preliminary Yeast 08/17/21 05:48 Blood - Venous Blood Culture - Preliminary No growth after 48 hours. 08/15/21 05:22 Blood - Venous Blood Culture - Final Staphylococcus aureus 08/15/21 05:22 Blood - Venous Blood Culture - Final Staphylococcus aureus 08/14/21 23:17 Sputum - Induced Gram Stain - Final 08/14/21 23:17 Sputum - Induced Sputum Culture - Final 08/13/21 08:09 Blood - Venous Blood Culture - Final Staphylococcus aureus 08/13/21 08:09 Blood - Venous Blood Culture - Final Staphylococcus aureus 08/11/21 01:50 Blood - Venous Blood Culture - Final Staphylococcus aureus 08/11/21 01:50 Blood - Venous Blood Culture - Final Staphylococcus aureus Procedures Date of Service Date of Service: 08/21/21 Assessment & Plan Assessment and plan (1) Abscess of left foot: Status: Acute (2) Hypernatremia: Status: Acute (3) 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: Status: Acute (4) Acute kidney injury: Status: Acute Plan #) Acute kidney injury due to tubular injury superimposed on chronic kidney disease Provide FW replacement with D5W ~ 3L deficit. Furosemide infusion appropriate due to soft bp's. Maintain I<O for now. BUN elevated. Monitor. Will reassess for potential [employer] needs. Noted moni, anemia, c3/c4 low complements, purpura noted on skin exam. 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 Renal biopsy held x 2 days due to thrombocytopenia. Additional serologies pending. 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 Rest per primary team. Time Spent With Patient Time: Total time spent is greater than 50% in coordination of care (as documented) at patient's floor/unit and/or counseling patient: Progress Note: Quality Stroke Does the patient have a stroke diagnosis?: No
[2021-08-21 19:04] LABS: Glucose, Whole Blood 205 mg/dL (60-115)
[2021-08-21 20:24] LABS: Glucose, Whole Blood 201 mg/dL (60-115)
[2021-08-21 21:10] LABS: Glucose, Whole Blood 193 mg/dL (60-115)
[2021-08-21 21:36] LABS: Prot Elec - Albumin 2.9 g/dL (3.8-4.8); Prot Elec - Alpha1 0.3 g/dL (0.2-0.3); Prot Elec - Alpha2 0.5 g/dL (0.5-0.9); Prot Elec - Beta 1 0.3 g/dL (0.4-0.6); Prot Elec - Beta 2 0.8 g/dL (0.2-0.5); Prot Elec - Gamma 2.6 g/dL (0.8-1.7); Prot Elec - Total Protein 7.4 g/dL (6.1-8.1)
[2021-08-21] MEDS: Atorvastatin Calcium 40 MG TABLET PO (21:41)
[2021-08-21 22:05] LABS: Glucose, Whole Blood 191 mg/dL (60-115)
[2021-08-21 22:26] LABS: Anti Glomerular Basement Memb <1.0 AI
[2021-08-21 23:15] LABS: Glucose, Whole Blood 194 mg/dL (60-115)
[2021-08-22] VITALS (24 sets, daily range): BP systolic 110–145; BP diastolic 45–57; PULSE 71–97; RESP 12–19; TEMP 34.9–37.1; O2SAT 91–97; BMI 34.8
[2021-08-22 00:14] LABS: Glucose, Whole Blood 178 mg/dL (60-115)
[2021-08-22] MEDS: propofoL 1,000 MG/100 ML VIAL 11.24 MG IVCONT ×3 (01:00→14:23)
[2021-08-22 02:13] LABS: Glucose, Whole Blood 165 mg/dL (60-115)
[2021-08-22] MEDS: Nafcillin Sodium 2 GM in 0.9 % Sodium Chloride 100 ML IV ×5 (03:10→17:47)
[2021-08-22] MEDS: Sodium Bicarbonate 650 MG TABLET G-TUBE ×3 (03:13→14:20)
[2021-08-22] MEDS: Insulin Regular/NS 100 UNIT/100 ML PLAST..BAG 10 UNIT IVCONT (03:50)
[2021-08-22 04:03] LABS: Glucose, Whole Blood 162 mg/dL (60-115)
[2021-08-22 05:26] LABS: Hematocrit 25.6 % (42.0-52.0); Hemoglobin 8.6 g/dl (14.0-18.0); Imm Gran Abs Auto 0.12 X10*3/uL (0.00-0.03); Lymphocytes Absolute Auto 0.3 X10*3/uL (1.2-4.9); Lymphocytes Percent Auto 2.7 % (20-40); MANUAL DIFF FLAG SCAN; Mean Corpuscular HGB Conc 33.6 g/dl (31.0-36.0); Mean Corpuscular Hemoglobin 30.9 pg (27.0-33.0); Mean Corpuscular Volume 92.1 fL (80.0-98.0); Mean Platelet Volume 12.5 fL (9.4-12.4); Monocytes Absolute Auto 0.4 X10*3/uL (0.1-1.2); Monocytes Percent Auto 3.8 % (2-11); NRBC Pct Auto 0.2 /100WBC (0.0-0.2); Neutrophils Absolute Auto 10.7 x10*3/uL (2.0-8.3); Neutrophils Percent Auto 92.5 % (45-73); Red Blood Count 2.78 X10*6/uL (4.60-5.80); Red Cell Distribution Width 16.7 % (11.0-16.0); SCAN SMEAR FLAG 1; White Blood Count 11.5 X10*3/uL (4.8-10.8)
[2021-08-22 05:29] LABS: VBG Base Excess -1.4 mmol/L; VBG HCO3 23 mmol/L (22-26); VBG pCO2 39 mmHg; VBG pH 7.37 (7.32-7.43); VBG pO2 60 mmHg
[2021-08-22 05:29] LABS: Platelet Count 47 X10*3/uL (160-400)
[2021-08-22 05:30] LABS: Venous Blood Gas Refer to POC result
[2021-08-22 05:33] LABS: Fibrinogen 201 MG/DL (259-690); INTERNATIONAL NORM RATIO 1.4 (0.9-1.1); Prothrombin Time 16.5 SEC (10.0-13.1)
[2021-08-22 05:36] LABS: Partial Thromboplastin Time 31.8 SEC (24.1-38.0)
[2021-08-22 05:46] LABS: SLIDE REVIEW VERIFIED
[2021-08-22 05:57] LABS: Alanine Aminotransferase < 6 U/L (0-40); Albumin Level 2.2 g/dL (3.5-5.0); Alkaline Phosphatase 81 U/L (39-117); Anion Gap 16 (12-20); Aspartate Amino Transferase 50 U/L (5-37); Bilirubin Direct 3.8 mg/dL (0.0-0.5); Bilirubin Total 4.8 mg/dL (0.0-1.0); Blood Urea Nitrogen 159 mg/dL (9-16); Calcium 7.2 mg/dL (8.4-10.2); Carbon Dioxide 22 mmol/L (22-29); Chloride 110 mmol/L (96-108); Estimated Glomerular Filt Rate 27; Glucose Random 174 mg/dL (60-115); Magnesium 2.4 mg/dL (1.6-2.6); Phosphorus 7.3 mg/dL (2.7-4.5); Potassium 3.6 mmol/L (3.3-5.1); Sodium 144 mmol/L (135-145); Total Protein 6.9 g/dL (6.5-8.0)
[2021-08-22 05:59] LABS: Glucose, Whole Blood 149 mg/dL (60-115)
[2021-08-22 06:04] LABS: Ferritin 1070 ng/mL (20-250)
[2021-08-22] MEDS: Levothyroxine Sodium 100 MCG/5 ML VIAL IVPUSH (06:43)
[2021-08-22] MEDS: fentaNYL citrate/PF 100 MCG/2 ML VIAL 50 MCG IVPUSH (08:30)
[2021-08-22 08:51] LABS: PEU-Protein Creat Ratio Rand 1.042 (0.022-0.128); PEU-Rand. Prot/Creat Ratio 1042 mg/g creat (22-128); PEU-Random Ur. Gamma Globulin 37 %; PEU-Random Urine A1 Globulin 2 %; PEU-Random Urine A2 Globulin 4 %; PEU-Random Urine Albumin 44 %; PEU-Random Urine Beta Globulin 13 %; PEU-Random Urine Creatinine 71 mg/dL (20-320); PEU-Random Urine Protein 74 mg/dL (5-25)
[2021-08-22] MEDS: Sevelamer Carbonate Powder 800 MG POWD.PACK PO ×3 (09:14→16:32)
[2021-08-22] MEDS: Hydrocortisone Sod Succ/PF 100 MG VIAL 25 MG IVPUSH (09:15)
[2021-08-22] MEDS: Chlorhexidine Gluc Oral Rinse 15 ML MOUTHWASH BUCCAL ×2 (09:15→14:20)
[2021-08-22] MEDS: Thiamine HCL 100 MG TABLET PO (09:15)
[2021-08-22] MEDS: Insulin Glargine,Hum.rec.anlog 100 UNIT/ML 10 ML VIAL 20 UNIT SUBCUT (09:15)
[2021-08-22] MEDS: rifAXIMin 550 MG TABLET PO ×2 (09:15→14:20)
[2021-08-22] MEDS: 0.9 % Sodium Chloride Flush 3 ML SYRINGE IVFLUSH ×2 (09:16→14:21)
[2021-08-22 09:18] LABS: Glucose, Whole Blood 134 mg/dL (60-115)
--- NOTE | 2021-08-22 09:44 | P.PNPL_ITS ---
Subjective Subjective Date of Service: 08/22/21 Principal diagnosis: AF Interval history: The patient was seen on exam. He still vented. Now with worsening renal f ailure and will be starting dialysis. Still has evidencerhage even after the 3 doses of Solu-Medrol 1 g. He did have a CT scan of the chest yesterday demonstrating extensive airspace disease consistent with his diffuse alveolar hemorrhage and vasculitis. His cultures actually negative for any lower respiratory infections. The ICU team is actively trying to get him transferred to a tertiary center in view of his multiorgan failure and complicated state. In the meantime with the ongoing active vasculitis the patient needs additional therapy. Objective Data Labs CBC & Chem 7: 08/22/21 05:15 08/22/21 05:15 Labs: Laboratory Results - last 24 hr 08/18/21 08/19/21 08/19/21 08:48 05:51 18:06 WBC RBC Hgb Hct MCV MCH MCHC RDW Plt Count MPV Immature Gran % (Auto) Neut % (Auto) Lymph % (Auto) [place] % (Auto) Eos % (Auto) Baso % (Auto) Lymph # (Auto) [place] # (Auto) Eos # (Auto) Baso # (Auto) Abs Immat Gran (auto) Absolute Neuts (auto) Absolute Nucleated RBC Nucleated RBC % (auto) Smear Tech's Comments Haptoglobin 96 PT INR APTT Fibrinogen VBG pH VBG pCO2 VBG pO2 VBG HCO3 VBG O2 Saturation VBG Base Excess Sodium Potassium Chloride Carbon Dioxide Anion Gap BUN Creatinine Estim Creat Clear Calc Estimated GFR POC Glucose Random Glucose Calcium Phosphorus Magnesium Ferritin Total Bilirubin Direct Bilirubin AST ALT Alkaline Phosphatase Total Protein Total Protein (PEP) Albumin Albumin (PEP) Brpng-8-Auryuteqz Zhcru-8-Sqwidqddw Jcgx-4-Qduadydv Mckn-7-Lyklftgu Gamma Globulins PEP Interpretation U [place] Prot/Creat Ratio 1.042 H Ur Creatinine mg/dL 71 U Total Protein mg/dL 74 H Protein/Creatinin Ratio 1042 H Urine Albumin (%) 44 U Xbjra-3-Avnfhzow (%) 2 U Pfjqr-9-Nfnzvxfv (%) 4 U Beta Globulin (%) 13 U Gamma Globulin (%) 37 Urine PEP Interpret Urine Immunofixation ZAYDA Titer TNP ZAYDA Titer 2 TNP ZAYDA Titer 3 TNP ZAYDA Pattern TNP ZAYDA Pattern 2 TNP ZAYDA Pattern 3 TNP Glomerular Base Memb Ab 08/19/21 08/21/21 08/21/21 18:15 11:04 12:02 WBC 9.3 RBC 2.74 L Hgb 8.3 L Hct 25.2 L MCV 92.0 MCH 30.3 MCHC 32.9 RDW 16.3 H Plt Count 47 L MPV 12.8 H Immature Gran % (Auto) 0.6 H Neut % (Auto) 93.2 H Lymph % (Auto) 3.4 L [place] % (Auto) 2.7 Eos % (Auto) 0.0 Baso % (Auto) 0.1 Lymph # (Auto) 0.3 L [place] # (Auto) 0.3 Eos # (Auto) 0.0 Baso # (Auto) 0.0 Abs Immat Gran (auto) 0.06 H Absolute Neuts (auto) 8.7 H Absolute Nucleated RBC 0.020 H Nucleated RBC % (auto) 0.2 Smear Tech's Comments VERIFIED Haptoglobin PT INR APTT Fibrinogen VBG pH VBG pCO2 VBG pO2 VBG HCO3 VBG O2 Saturation VBG Base Excess Sodium Potassium Chloride Carbon Dioxide Anion Gap BUN Creatinine Estim Creat Clear Calc Estimated GFR POC Glucose 187 H Random Glucose Calcium Phosphorus Magnesium Ferritin Total Bilirubin Direct Bilirubin AST ALT Alkaline Phosphatase Total Protein Total Protein (PEP) 7.4 Albumin Albumin (PEP) 2.9 L Iwnuj-0-Xswuhfoyq 0.3 Ilcby-0-Qqmskgspt 0.5 Flwb-3-Lutsfard 0.3 L Dpwk-1-Kjzkzquk 0.8 H Gamma Globulins 2.6 H PEP Interpretation SEE NOTE U [place] Prot/Creat Ratio Ur Creatinine mg/dL U Total Protein mg/dL Protein/Creatinin Ratio Urine Albumin (%) U Iudpt-4-Injonwea (%) U Dnjjp-6-Bivnzjcd (%) U Beta Globulin (%) U Gamma Globulin (%) Urine PEP Interpret Urine Immunofixation ZAYDA Titer ZAYDA Titer 2 ZAYDA Titer 3 ZAYDA Pattern ZAYDA Pattern 2 ZAYDA Pattern 3 Glomerular Base Memb Ab <1.0 08/21/21 08/21/21 08/21/21 12:02 13:02 15:18 WBC RBC Hgb Hct MCV MCH MCHC RDW Plt Count MPV Immature Gran % (Auto) Neut % (Auto) Lymph % (Auto) [place] % (Auto) Eos % (Auto) Baso % (Auto) Lymph # (Auto) [place] # (Auto) Eos # (Auto) Baso # (Auto) Abs Immat Gran (auto) Absolute Neuts (auto) Absolute Nucleated RBC Nucleated RBC % (auto) Smear Tech's Comments Haptoglobin PT INR APTT Fibrinogen VBG pH VBG pCO2 VBG pO2 VBG HCO3 VBG O2 Saturation VBG Base Excess Sodium 146 H Potassium 3.9 Chloride 113 H Carbon Dioxide 23 Anion Gap 14 BUN 152 H Creatinine 2.04 H Estim Creat Clear Calc 41.3 Estimated GFR 33 POC Glucose 189 H 186 H Random Glucose 212 H Calcium 7.5 L Phosphorus Magnesium Ferritin Total Bilirubin Direct Bilirubin AST ALT Alkaline Phosphatase Total Protein Total Protein (PEP) Albumin Albumin (PEP) Pitii-6-Bhfilvnik Vfnyh-1-Fevrhqley Gylh-9-Frbdhiew Exid-9-Hgynfrxl Gamma Globulins PEP Interpretation U [place] Prot/Creat Ratio Ur Creatinine mg/dL U Total Protein mg/dL Protein/Creatinin Ratio Urine Albumin (%) U Xnktv-3-Unvhbbai (%) U Wgfrm-6-Ojpumicr (%) U Beta Globulin (%) U Gamma Globulin (%) Urine PEP Interpret Urine Immunofixation ZAYDA Titer ZAYDA Titer 2 ZAYDA Titer 3 ZAYDA Pattern ZAYDA Pattern 2 ZAYDA Pattern 3 Glomerular Base Memb Ab 08/21/21 08/21/21 08/21/21 17:09 19:01 20:16 WBC RBC Hgb Hct MCV MCH MCHC RDW Plt Count MPV Immature Gran % (Auto) Neut % (Auto) Lymph % (Auto) [place] % (Auto) Eos % (Auto) Baso % (Auto) Lymph # (Auto) [place] # (Auto) Eos # (Auto) Baso # (Auto) Abs Immat Gran (auto) Absolute Neuts (auto) Absolute Nucleated RBC Nucleated RBC % (auto) Smear Tech's Comments Haptoglobin PT INR APTT Fibrinogen VBG pH VBG pCO2 VBG pO2 VBG HCO3 VBG O2 Saturation VBG Base Excess Sodium Potassium Chloride Carbon Dioxide Anion Gap BUN Creatinine Estim Creat Clear Calc Estimated GFR POC Glucose 188 H 205 H 201 H Random Glucose Calcium Phosphorus Magnesium Ferritin Total Bilirubin Direct Bilirubin AST ALT Alkaline Phosphatase Total Protein Total Protein (PEP) Albumin Albumin (PEP) Tzecx-3-Jlmhkqvri Mfxyy-2-Zqgvvnzuk Qosq-3-Fidjjfbv Wpkx-9-Snfscpgq Gamma Globulins PEP Interpretation U [place] Prot/Creat Ratio Ur Creatinine mg/dL U Total Protein mg/dL Protein/Creatinin Ratio Urine Albumin (%) U Ramou-1-Okdqxjcs (%) U Ullzy-1-Niudmubq (%) U Beta Globulin (%) U Gamma Globulin (%) Urine PEP Interpret Urine Immunofixation ZAYDA Titer ZAYDA Titer 2 ZAYDA Titer 3 ZAYDA Pattern ZAYDA Pattern 2 ZAYDA Pattern 3 Glomerular Base Memb Ab 08/21/21 08/21/21 08/21/21 21:06 22:01 23:11 WBC RBC Hgb Hct MCV MCH MCHC RDW Plt Count MPV Immature Gran % (Auto) Neut % (Auto) Lymph % (Auto) [place] % (Auto) Eos % (Auto) Baso % (Auto) Lymph # (Auto) [place] # (Auto) Eos # (Auto) Baso # (Auto) Abs Immat Gran (auto) Absolute Neuts (auto) Absolute Nucleated RBC Nucleated RBC % (auto) Smear Tech's Comments Haptoglobin PT INR APTT Fibrinogen VBG pH VBG pCO2 VBG pO2 VBG HCO3 VBG O2 Saturation VBG Base Excess Sodium Potassium Chloride Carbon Dioxide Anion Gap BUN Creatinine Estim Creat Clear Calc Estimated GFR POC Glucose 193 H 191 H 194 H Random Glucose Calcium Phosphorus Magnesium Ferritin Total Bilirubin Direct Bilirubin AST ALT Alkaline Phosphatase Total Protein Total Protein (PEP) Albumin Albumin (PEP) Rstno-0-Tnwedwhjj Qfaju-8-Pyravhmih Uzcm-9-Jgadjajq Mgwb-2-Dtzokgzt Gamma Globulins PEP Interpretation U [place] Prot/Creat Ratio Ur Creatinine mg/dL U Total Protein mg/dL Protein/Creatinin Ratio Urine Albumin (%) U Boeei-0-Fyykyuaw (%) U Jrolw-7-Gcolynxu (%) U Beta Globulin (%) U Gamma Globulin (%) Urine PEP Interpret Urine Immunofixation ZAYDA Titer ZAYDA Titer 2 ZAYDA Titer 3 ZAYDA Pattern ZAYDA Pattern 2 ZAYDA Pattern 3 Glomerular Base Memb Ab 08/22/21 08/22/21 08/22/21 00:10 02:09 03:59 WBC RBC Hgb Hct MCV MCH MCHC RDW Plt Count MPV Immature Gran % (Auto) Neut % (Auto) Lymph % (Auto) [place] % (Auto) Eos % (Auto) Baso % (Auto) Lymph # (Auto) [place] # (Auto) Eos # (Auto) Baso # (Auto) Abs Immat Gran (auto) Absolute Neuts (auto) Absolute Nucleated RBC Nucleated RBC % (auto) Smear Tech's Comments Haptoglobin PT INR APTT Fibrinogen VBG pH VBG pCO2 VBG pO2 VBG HCO3 VBG O2 Saturation VBG Base Excess Sodium Potassium Chloride Carbon Dioxide Anion Gap BUN Creatinine Estim Creat Clear Calc Estimated GFR POC Glucose 178 H 165 H 162 H Random Glucose Calcium Phosphorus Magnesium Ferritin Total Bilirubin Direct Bilirubin AST ALT Alkaline Phosphatase Total Protein Total Protein (PEP) Albumin Albumin (PEP) Uwiel-4-Zfyzkxaas Dkshl-9-Jsxqpyaix Dwgc-8-Afdbjtpk Fnuv-3-Jxsfwltf Gamma Globulins PEP Interpretation U [place] Prot/Creat Ratio Ur Creatinine mg/dL U Total Protein mg/dL Protein/Creatinin Ratio Urine Albumin (%) U Cimcn-9-Wijkxlxp (%) U Fbusa-2-Snoledie (%) U Beta Globulin (%) U Gamma Globulin (%) Urine PEP Interpret Urine Immunofixation ZAYDA Titer ZAYDA Titer 2 ZAYDA Titer 3 ZAYDA Pattern ZAYDA Pattern 2 ZAYDA Pattern 3 Glomerular Base Memb Ab 08/22/21 08/22/21 08/22/21 05:15 05:15 05:15 WBC 11.5 H RBC 2.78 L Hgb 8.6 L Hct 25.6 L MCV 92.1 MCH 30.9 MCHC 33.6 RDW 16.7 H Plt Count 47 L MPV 12.5 H Immature Gran % (Auto) 1.0 H Neut % (Auto) 92.5 H Lymph % (Auto) 2.7 L [place] % (Auto) 3.8 Eos % (Auto) 0.0 Baso % (Auto) 0.0 Lymph # (Auto) 0.3 L [place] # (Auto) 0.4 Eos # (Auto) 0.0 Baso # (Auto) 0.0 Abs Immat Gran (auto) 0.12 H Absolute Neuts (auto) 10.7 H Absolute Nucleated RBC 0.020 H Nucleated RBC % (auto) 0.2 Smear Tech's Comments VERIFIED Haptoglobin PT 16.5 H INR 1.4 H APTT 31.8 Fibrinogen 201 L VBG pH VBG pCO2 VBG pO2 VBG HCO3 VBG O2 Saturation VBG Base Excess Sodium 144 Potassium 3.6 Chloride 110 H Carbon Dioxide 22 Anion Gap 16 BUN 159 H Creatinine 2.41 H Estim Creat Clear Calc 35.0 Estimated GFR 27 POC Glucose Random Glucose 174 H Calcium 7.2 L Phosphorus 7.3 H Magnesium 2.4 Ferritin 1070 H Total Bilirubin 4.8 H Direct Bilirubin 3.8 H AST 50 H ALT < 6 Alkaline Phosphatase 81 Total Protein 6.9 Total Protein (PEP) Albumin 2.2 L Albumin (PEP) Xekso-4-Ucmtjesxc Qxrhz-9-Sdpkfhuek Uapn-2-Irfzjjhm Pbnd-3-Gjxetokz Gamma Globulins PEP Interpretation U [place] Prot/Creat Ratio Ur Creatinine mg/dL U Total Protein mg/dL Protein/Creatinin Ratio Urine Albumin (%) U Lmckp-0-Dhggviso (%) U Xixkq-6-Eabrgzps (%) U Beta Globulin (%) U Gamma Globulin (%) Urine PEP Interpret Urine Immunofixation ZAYDA Titer ZAYDA Titer 2 ZAYDA Titer 3 ZAYDA Pattern ZAYDA Pattern 2 ZAYDA Pattern 3 Glomerular Base Memb Ab 08/22/21 08/22/21 08/22/21 05:24 05:55 09:13 WBC RBC Hgb Hct MCV MCH MCHC RDW Plt Count MPV Immature Gran % (Auto) Neut % (Auto) Lymph % (Auto) [place] % (Auto) Eos % (Auto) Baso % (Auto) Lymph # (Auto) [place] # (Auto) Eos # (Auto) Baso # (Auto) Abs Immat Gran (auto) Absolute Neuts (auto) Absolute Nucleated RBC Nucleated RBC % (auto) Smear Tech's Comments Haptoglobin PT INR APTT Fibrinogen VBG pH 7.37 VBG pCO2 39 VBG pO2 60 VBG HCO3 23 VBG O2 Saturation 86.0 VBG Base Excess -1.4 Sodium Potassium Chloride Carbon Dioxide Anion Gap BUN Creatinine Estim Creat Clear Calc Estimated GFR POC Glucose 149 H 134 H Random Glucose Calcium Phosphorus Magnesium Ferritin Total Bilirubin Direct Bilirubin AST ALT Alkaline Phosphatase Total Protein Total Protein (PEP) Albumin Albumin (PEP) Ojgsv-0-Gechmmozo Aktma-7-Smegbvprx Pohi-8-Tskguptj Hdex-2-Wbmouybo Gamma Globulins PEP Interpretation U [place] Prot/Creat Ratio Ur Creatinine mg/dL U Total Protein mg/dL Protein/Creatinin Ratio Urine Albumin (%) U [place]-1-Fwkqwspx (%) U Oorsf-9-Uzdsunnj (%) U Beta Globulin (%) U Gamma Globulin (%) Urine PEP Interpret Urine Immunofixation ZAYDA Titer ZAYDA Titer 2 ZAYDA Titer 3 ZAYDA Pattern ZAYDA Pattern 2 ZAYDA Pattern 3 Glomerular Base Memb Ab Microbiology Microbiology Results: Microbiology 08/17/21 05:48 Blood - Venous Blood Culture - Preliminary Prelim: GPC Gram Stain only 08/21/21 16:36 Foot - Abscess Gram Stain - Final 08/21/21 16:36 Foot - Abscess Routine Culture - Preliminary Culture in progress. 08/19/21 08:37 Washing - Bronchial Gram Stain - Final 08/19/21 08:37 Washing - Bronchial - Final Alivia parapsilosis 08/18/21 23:22 Foot Left Gram Stain - Final 08/18/21 23:22 Foot Left Routine Culture - Final Staphylococcus aureus 08/17/21 05:48 Blood - Venous Blood Culture - Preliminary Prelim: GPC Gram Stain only 08/15/21 05:22 Blood - Venous Blood Culture - Final Staphylococcus aureus 08/15/21 05:22 Blood - Venous Blood Culture - Final Staphylococcus aureus 08/14/21 23:17 Sputum - Induced Gram Stain - Final 08/14/21 23:17 Sputum - Induced Sputum Culture - Final 08/13/21 08:09 Blood - Venous Blood Culture - Final Staphylococcus aureus 08/13/21 08:09 Blood - Venous Blood Culture - Final Staphylococcus aureus 08/11/21 01:50 Blood - Venous Blood Culture - Final Staphylococcus aureus 08/11/21 01:50 Blood - Venous Blood Culture - Final Staphylococcus aureus Review of Systems Review of Systems Yes unobtainable due to endotracheal tube Physical Exam Vital Signs: Vital Signs: Last Vital Signs Temp 98.5 F 08/22/21 08:00 Pulse 80 08/22/21 09:00 Resp 12 08/22/21 09:00 BP 124/51 L 08/22/21 09:00 Pulse Ox 95 08/22/21 09:00 O2 Del Method 08/22/21 09:00 O2 Flow Rate 55 08/14/21 22:00 FiO2 55 08/22/21 09:00 BMI result Body Mass Index 34.8 Const: Other: Sedated General: ill appearing Nutritional Appearance: Edematous HEENT: Head: Yes normocephalic and Yes atraumatic Neck: Neck: Yes no JVD Chest: Chest palpation & inspection: normal inspection of the chest Resp: Other: Mechanical Breath sounds Auscultation: diminished lung sounds Cardio: Jugular venous distension: no JVD Rate: regular rate Rhythm: regular rhythm Heart sounds: S1 normal heart sound present and S2 normal heart sound present GI: Inspection: Yes normal to inspection Auscultation: normal bowel sounds Skin: General skin exam: petechiae and purpura Neuro: Other: Sedated Extrem: General: Yes edema Procedures Date of Service Date of Service: 08/22/21 Assessment and Plan Assessment and plan (1) Acute respiratory failure: Status: Acute (2) Diffuse pulmonary alveolar hemorrhage: Status: Acute (3) 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 I do believe rituximab would be the best option for him. I did reach out to pharmacy to start looking at the process. I do agree the patient is gravely ill and he also would benefi from tertiary center care. Apparently Cytoxan is also an option but is not able to be provided as an in-patient by our staff. Awaiting bloodwork pending The patient will be starting dialysis. Unfortunately he did not get a renal biopsy. Still with skin biopsy showing the vasculitis and is evidence of diffusing alveolar hemorrhage now on dialysis. 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 Awaiting cultures Critical condition Time Spent With Patient Time: Total time spent is greater than 50% in coordination of care (as documented) at patient's floor/unit and/or counseling patient: Progress Note: Quality Stroke Does the patient have a stroke diagnosis?: No
--- NOTE | 2021-08-22 10:16 | P.PNNP_ITS ---
Subjective Subjective Date of Service: 08/22/21 Principal diagnosis: AF Interval history: Chart Reviewed. Events noted. Pt made 600 cc overnight with lasix bolus and drip Discussed with ICU attending initiation of dialysis and transfer to [facility] Physical Exam Vital Signs: Vital Signs: Last Vital Signs Temp 98.5 F 08/22/21 08:00 Pulse 80 08/22/21 09:00 Resp 12 08/22/21 09:00 BP 124/51 L 08/22/21 09:00 Pulse Ox 95 08/22/21 09:00 O2 Del Method 08/22/21 09:00 O2 Flow Rate 55 08/14/21 22:00 FiO2 55 08/22/21 09:00 BMI result Body Mass Index 34.8 Const: Other: Pt intubated CVP 17 HEENT: Other: Anicteric Resp: Other: Diffuse Rales anterior lung holm Cardio: Jugular venous distension: JVD Rate: regular rate Heart sounds: S1 normal heart sound present and S2 normal heart sound present Peripheral pulses: brachial pulses present and radial pulses present GI: Inspection: Yes distended Percussion: Yes normal to percussion Auscultation: normal bowel sounds Skin: Other: Purpuric rash over abdomen and upper thighs, ?embolic lesion right foot; r foot wrapped after debridement yesterday Objective Data Labs CBC & Chem 7: 08/22/21 05:15 08/22/21 05:15 Labs: Laboratory Results - last 24 hr 08/18/21 08/19/21 08/19/21 08:48 05:51 18:06 WBC RBC Hgb Hct MCV MCH MCHC RDW Plt Count MPV Immature Gran % (Auto) Neut % (Auto) Lymph % (Auto) Mcnairy % (Auto) Eos % (Auto) Baso % (Auto) Lymph # (Auto) Mcnairy # (Auto) Eos # (Auto) Baso # (Auto) Abs Immat Gran (auto) Absolute Neuts (auto) Absolute Nucleated RBC Nucleated RBC % (auto) Smear Tech's Comments Haptoglobin 96 PT INR APTT Fibrinogen VBG pH VBG pCO2 VBG pO2 VBG HCO3 VBG O2 Saturation VBG Base Excess Sodium Potassium Chloride Carbon Dioxide Anion Gap BUN Creatinine Estim Creat Clear Calc Estimated GFR POC Glucose Random Glucose Calcium Phosphorus Magnesium Ferritin Total Bilirubin Direct Bilirubin AST ALT Alkaline Phosphatase Total Protein Total Protein (PEP) Albumin Albumin (PEP) Spauj-8-Jevvvjqob Edtbp-2-Ygnnhnomc Khss-4-Gadiuftp Mwqu-4-Jwzpezka Gamma Globulins PEP Interpretation U [place] Prot/Creat Ratio 1.042 H Ur Creatinine mg/dL 71 U Total Protein mg/dL 74 H Protein/Creatinin Ratio 1042 H Urine Albumin (%) 44 U Iqgzy-6-Gecdrqzk (%) 2 U Twhks-2-Jkcyurvx (%) 4 U Beta Globulin (%) 13 U Gamma Globulin (%) 37 Urine PEP Interpret Urine Immunofixation ZAYDA Titer TNP ZAYDA Titer 2 TNP ZAYDA Titer 3 TNP ZAYDA Pattern TNP ZAYDA Pattern 2 TNP ZAYDA Pattern 3 TNP Glomerular Base Memb Ab 08/19/21 08/21/21 08/21/21 18:15 11:04 12:02 WBC 9.3 RBC 2.74 L Hgb 8.3 L Hct 25.2 L MCV 92.0 MCH 30.3 MCHC 32.9 RDW 16.3 H Plt Count 47 L MPV 12.8 H Immature Gran % (Auto) 0.6 H Neut % (Auto) 93.2 H Lymph % (Auto) 3.4 L Mcnairy % (Auto) 2.7 Eos % (Auto) 0.0 Baso % (Auto) 0.1 Lymph # (Auto) 0.3 L Mcnairy # (Auto) 0.3 Eos # (Auto) 0.0 Baso # (Auto) 0.0 Abs Immat Gran (auto) 0.06 H Absolute Neuts (auto) 8.7 H Absolute Nucleated RBC 0.020 H Nucleated RBC % (auto) 0.2 Smear Tech's Comments VERIFIED Haptoglobin PT INR APTT Fibrinogen VBG pH VBG pCO2 VBG pO2 VBG HCO3 VBG O2 Saturation VBG Base Excess Sodium Potassium Chloride Carbon Dioxide Anion Gap BUN Creatinine Estim Creat Clear Calc Estimated GFR POC Glucose 187 H Random Glucose Calcium Phosphorus Magnesium Ferritin Total Bilirubin Direct Bilirubin AST ALT Alkaline Phosphatase Total Protein Total Protein (PEP) 7.4 Albumin Albumin (PEP) 2.9 L Kaglj-7-Yqbjxdvar 0.3 Vganu-1-Xtpfphtxj 0.5 Uhfy-5-Huyglbqk 0.3 L Evnn-7-Cwihfkui 0.8 H Gamma Globulins 2.6 H PEP Interpretation SEE NOTE U [place] Prot/Creat Ratio Ur Creatinine mg/dL U Total Protein mg/dL Protein/Creatinin Ratio Urine Albumin (%) U Qsjqd-6-Yqflpnkj (%) U Otwsc-0-Vovvkmyt (%) U Beta Globulin (%) U Gamma Globulin (%) Urine PEP Interpret Urine Immunofixation ZAYDA Titer ZAYAD Titer 2 ZAYDA Titer 3 ZAYDA Pattern ZAYDA Pattern 2 ZAYDA Pattern 3 Glomerular Base Memb Ab <1.0 08/21/21 08/21/21 08/21/21 12:02 13:02 15:18 WBC RBC Hgb Hct MCV MCH MCHC RDW Plt Count MPV Immature Gran % (Auto) Neut % (Auto) Lymph % (Auto) Mcnairy % (Auto) Eos % (Auto) Baso % (Auto) Lymph # (Auto) Mcnairy # (Auto) Eos # (Auto) Baso # (Auto) Abs Immat Gran (auto) Absolute Neuts (auto) Absolute Nucleated RBC Nucleated RBC % (auto) Smear Tech's Comments Haptoglobin PT INR APTT Fibrinogen VBG pH VBG pCO2 VBG pO2 VBG HCO3 VBG O2 Saturation VBG Base Excess Sodium 146 H Potassium 3.9 Chloride 113 H Carbon Dioxide 23 Anion Gap 14 BUN 152 H Creatinine 2.04 H Estim Creat Clear Calc 41.3 Estimated GFR 33 POC Glucose 189 H 186 H Random Glucose 212 H Calcium 7.5 L Phosphorus Magnesium Ferritin Total Bilirubin Direct Bilirubin AST ALT Alkaline Phosphatase Total Protein Total Protein (PEP) Albumin Albumin (PEP) Ctkhg-0-Fzfsuydlf Mofvp-2-Sbagxaigc Kpvr-2-Lhgcyvsb Aatn-6-Ucdddgbe Gamma Globulins PEP Interpretation U [place] Prot/Creat Ratio Ur Creatinine mg/dL U Total Protein mg/dL Protein/Creatinin Ratio Urine Albumin (%) U Odqpm-1-Awaqxgpb (%) U Sklpk-8-Kauxerqq (%) U Beta Globulin (%) U Gamma Globulin (%) Urine PEP Interpret Urine Immunofixation ZAYDA Titer ZAYDA Titer 2 ZAYDA Titer 3 ZAYDA Pattern ZAYDA Pattern 2 ZAYDA Pattern 3 Glomerular Base Memb Ab 08/21/21 08/21/21 08/21/21 17:09 19:01 20:16 WBC RBC Hgb Hct MCV MCH MCHC RDW Plt Count MPV Immature Gran % (Auto) Neut % (Auto) Lymph % (Auto) Mcn[place] % (Auto) Eos % (Auto) Baso % (Auto) Lymph # (Auto) Mcn[place] # (Auto) Eos # (Auto) Baso # (Auto) Abs Immat Gran (auto) Absolute Neuts (auto) Absolute Nucleated RBC Nucleated RBC % (auto) Smear Tech's Comments Haptoglobin PT INR APTT Fibrinogen VBG pH VBG pCO2 VBG pO2 VBG HCO3 VBG O2 Saturation VBG Base Excess Sodium Potassium Chloride Carbon Dioxide Anion Gap BUN Creatinine Estim Creat Clear Calc Estimated GFR POC Glucose 188 H 205 H 201 H Random Glucose Calcium Phosphorus Magnesium Ferritin Total Bilirubin Direct Bilirubin AST ALT Alkaline Phosphatase Total Protein Total Protein (PEP) Albumin Albumin (PEP) Nypio-2-Kkhglmhlf Tzmdn-5-Gmiscaecq Fmlo-3-Hikuaiay Wbmd-5-Bbonmhun Gamma Globulins PEP Interpretation U [place] Prot/Creat Ratio Ur Creatinine mg/dL U Total Protein mg/dL Protein/Creatinin Ratio Urine Albumin (%) U Kdcdc-4-Piyetano (%) U Ngwky-8-Hqbkdwkt (%) U Beta Globulin (%) U Gamma Globulin (%) Urine PEP Interpret Urine Immunofixation ZAYDA Titer ZAYDA Titer 2 ZAYDA Titer 3 ZAYDA Pattern ZAYDA Pattern 2 ZAYDA Pattern 3 Glomerular Base Memb Ab 08/21/21 08/21/21 08/21/21 21:06 22:01 23:11 WBC RBC Hgb Hct MCV MCH MCHC RDW Plt Count MPV Immature Gran % (Auto) Neut % (Auto) Lymph % (Auto) Mcnairy % (Auto) Eos % (Auto) Baso % (Auto) Lymph # (Auto) Mcn[place] # (Auto) Eos # (Auto) Baso # (Auto) Abs Immat Gran (auto) Absolute Neuts (auto) Absolute Nucleated RBC Nucleated RBC % (auto) Smear Tech's Comments Haptoglobin PT INR APTT Fibrinogen VBG pH VBG pCO2 VBG pO2 VBG HCO3 VBG O2 Saturation VBG Base Excess Sodium Potassium Chloride Carbon Dioxide Anion Gap BUN Creatinine Estim Creat Clear Calc Estimated GFR POC Glucose 193 H 191 H 194 H Random Glucose Calcium Phosphorus Magnesium Ferritin Total Bilirubin Direct Bilirubin AST ALT Alkaline Phosphatase Total Protein Total Protein (PEP) Albumin Albumin (PEP) Mpmij-0-Ikrzglfpr Pnxdd-1-Pwdfqufmu Nxgs-2-Tfpbtvqk Cojn-6-Brtxyxoo Gamma Globulins PEP Interpretation U [place] Prot/Creat Ratio Ur Creatinine mg/dL U Total Protein mg/dL Protein/Creatinin Ratio Urine Albumin (%) U Odshn-1-Flaltmew (%) U Pfxou-2-Vgdnbrkm (%) U Beta Globulin (%) U Gamma Globulin (%) Urine PEP Interpret Urine Immunofixation ZAYDA Titer ZAYDA Titer 2 ZAYDA Titer 3 ZAYDA Pattern ZAYDA Pattern 2 ZAYDA Pattern 3 Glomerular Base Memb Ab 08/22/21 08/22/21 08/22/21 00:10 02:09 03:59 WBC RBC Hgb Hct MCV MCH MCHC RDW Plt Count MPV Immature Gran % (Auto) Neut % (Auto) Lymph % (Auto) [place] % (Auto) Eos % (Auto) Baso % (Auto) Lymph # (Auto) [place] # (Auto) Eos # (Auto) Baso # (Auto) Abs Immat Gran (auto) Absolute Neuts (auto) Absolute Nucleated RBC Nucleated RBC % (auto) Smear Tech's Comments Haptoglobin PT INR APTT Fibrinogen VBG pH VBG pCO2 VBG pO2 VBG HCO3 VBG O2 Saturation VBG Base Excess Sodium Potassium Chloride Carbon Dioxide Anion Gap BUN Creatinine Estim Creat Clear Calc Estimated GFR POC Glucose 178 H 165 H 162 H Random Glucose Calcium Phosphorus Magnesium Ferritin Total Bilirubin Direct Bilirubin AST ALT Alkaline Phosphatase Total Protein Total Protein (PEP) Albumin Albumin (PEP) Hfwnz-2-Mlaxrndzd Ibayj-4-Ohaypqbyh Exbm-8-Ursooqia Prih-4-Ecvzsprb Gamma Globulins PEP Interpretation U [place] Prot/Creat Ratio Ur Creatinine mg/dL U Total Protein mg/dL Protein/Creatinin Ratio Urine Albumin (%) U Ldijx-2-Kjttuusj (%) U Brbnk-7-Cyeatrii (%) U Beta Globulin (%) U Gamma Globulin (%) Urine PEP Interpret Urine Immunofixation ZAYDA Titer ZAYDA Titer 2 ZAYDA Titer 3 ZAYDA Pattern ZAYDA Pattern 2 ZAYDA Pattern 3 Glomerular Base Memb Ab 08/22/21 08/22/21 08/22/21 05:15 05:15 05:15 WBC 11.5 H RBC 2.78 L Hgb 8.6 L Hct 25.6 L MCV 92.1 MCH 30.9 MCHC 33.6 RDW 16.7 H Plt Count 47 L MPV 12.5 H Immature Gran % (Auto) 1.0 H Neut % (Auto) 92.5 H Lymph % (Auto) 2.7 L Mcnairy % (Auto) 3.8 Eos % (Auto) 0.0 Baso % (Auto) 0.0 Lymph # (Auto) 0.3 L [place] # (Auto) 0.4 Eos # (Auto) 0.0 Baso # (Auto) 0.0 Abs Immat Gran (auto) 0.12 H Absolute Neuts (auto) 10.7 H Absolute Nucleated RBC 0.020 H Nucleated RBC % (auto) 0.2 Smear Tech's Comments VERIFIED Haptoglobin PT 16.5 H INR 1.4 H APTT 31.8 Fibrinogen 201 L VBG pH VBG pCO2 VBG pO2 VBG HCO3 VBG O2 Saturation VBG Base Excess Sodium 144 Potassium 3.6 Chloride 110 H Carbon Dioxide 22 Anion Gap 16 BUN 159 H Creatinine 2.41 H Estim Creat Clear Calc 35.0 Estimated GFR 27 POC Glucose Random Glucose 174 H Calcium 7.2 L Phosphorus 7.3 H Magnesium 2.4 Ferritin 1070 H Total Bilirubin 4.8 H Direct Bilirubin 3.8 H AST 50 H ALT < 6 Alkaline Phosphatase 81 Total Protein 6.9 Total Protein (PEP) Albumin 2.2 L Albumin (PEP) Qgiix-8-Cahfgiypi Ffhgw-6-Pbvqyholc Zqdn-1-Yuecxclh Ubyj-2-Vbvtuody Gamma Globulins PEP Interpretation U [place] Prot/Creat Ratio Ur Creatinine mg/dL U Total Protein mg/dL Protein/Creatinin Ratio Urine Albumin (%) U Rnuom-3-Lxlsvrgu (%) U Hjapl-2-Ytfnhhbe (%) U Beta Globulin (%) U Gamma Globulin (%) Urine PEP Interpret Urine Immunofixation ZAYDA Titer ZAYDA Titer 2 ZAYDA Titer 3 ZAYDA Pattern ZAYDA Pattern 2 ZAYDA Pattern 3 Glomerular Base Memb Ab 08/22/21 08/22/21 08/22/21 05:24 05:55 09:13 WBC RBC Hgb Hct MCV MCH MCHC RDW Plt Count MPV Immature Gran % (Auto) Neut % (Auto) Lymph % (Auto) [place] % (Auto) Eos % (Auto) Baso % (Auto) Lymph # (Auto) [place] # (Auto) Eos # (Auto) Baso # (Auto) Abs Immat Gran (auto) Absolute Neuts (auto) Absolute Nucleated RBC Nucleated RBC % (auto) Smear Tech's Comments Haptoglobin PT INR APTT Fibrinogen VBG pH 7.37 VBG pCO2 39 VBG pO2 60 VBG HCO3 23 VBG O2 Saturation 86.0 VBG Base Excess -1.4 Sodium Potassium Chloride Carbon Dioxide Anion Gap BUN Creatinine Estim Creat Clear Calc Estimated GFR POC Glucose 149 H 134 H Random Glucose Calcium Phosphorus Magnesium Ferritin Total Bilirubin Direct Bilirubin AST ALT Alkaline Phosphatase Total Protein Total Protein (PEP) Albumin Albumin (PEP) Soqoo-9-Ttfnhddpq Gdiwv-0-Wlecmduei Zyul-5-Khzwhyoo Tayr-1-Egquccdz Gamma Globulins PEP Interpretation U [place] Prot/Creat Ratio Ur Creatinine mg/dL U Total Protein mg/dL Protein/Creatinin Ratio Urine Albumin (%) U Skbvc-8-Huwkiwou (%) U Mgxhm-2-Vwfkyoiy (%) U Beta Globulin (%) U Gamma Globulin (%) Urine PEP Interpret Urine Immunofixation ZAYDA Titer ZAYDA Titer 2 ZAYDA Titer 3 ZAYDA Pattern ZAYDA Pattern 2 ZAYDA Pattern 3 Glomerular Base Memb Ab Imaging CT scan - chest: My impression: Multifocal consolidations Microbiology Microbiology Results: Microbiology 08/17/21 05:48 Blood - Venous Blood Culture - Preliminary Staphylococcus aureus 08/17/21 05:48 Blood - Venous Blood Culture - Preliminary Prelim: GPC Gram Stain only 08/21/21 16:36 Foot - Abscess Gram Stain - Final 08/21/21 16:36 Foot - Abscess Routine Culture - Preliminary Culture in progress. 08/19/21 08:37 Washing - Bronchial Gram Stain - Final 08/19/21 08:37 Washing - Bronchial - Final Alivia parapsilosis 08/18/21 23:22 Foot Left Gram Stain - Final 08/18/21 23:22 Foot Left Routine Culture - Final Staphylococcus aureus 08/15/21 05:22 Blood - Venous Blood Culture - Final Staphylococcus aureus 08/15/21 05:22 Blood - Venous Blood Culture - Final Staphylococcus aureus 08/14/21 23:17 Sputum - Induced Gram Stain - Final 08/14/21 23:17 Sputum - Induced Sputum Culture - Final 08/13/21 08:09 Blood - Venous Blood Culture - Final Staphylococcus aureus 08/13/21 08:09 Blood - Venous Blood Culture - Final Staphylococcus aureus 08/11/21 01:50 Blood - Venous Blood Culture - Final Staphylococcus aureus 08/11/21 01:50 Blood - Venous Blood Culture - Final Staphylococcus aureus Procedures Date of Service Date of Service: 08/22/21 Assessment & Plan Assessment and plan (1) Acute kidney injury: Status: Acute Assessment and Plan: EIMGDIO in the setting of s.auresus bacteremia, vasculitis purpuric rash and pulm h emorrhage. UA is not nephritic by lab report; warrants microscopy; creat actually at baseline but marked azotemia now and poor response to diuretic challenge and hypervolemic with CVP 17 and worsening pulm status with pulm hemorrhage on bronch and now pos sputum for alivia p. Received three pulses of solumedrol. DDX of EMIGDIO includes ATN due to sepsis, less likely would be postinfectious GN (UA non-nephritic but hypocomplementemic), vasculitis (UA nonnephritic but skin vasculitis), microangiopathy (thrombocytopenia but no evidence of MAHA), AIN from nafcillin (recheck uA). Will plan to dialyze for vol removal and azotemia today. Discussed Case with Dr. 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: Status: Acute Assessment and Plan: Received three pulses of solumedrol 1 gram; would start solumedrol 100 mg daily and hold further immunosuppression until we have a lung or renal tissue diagnosis (4) Palpable purpura: Status: Acute Assessment and Plan: Steroids: 100 mg IV solumedrol; treat infection (5) Type 2 diabetes mellitus with chronic kidney disease: Status: Acute Plan Dialysis today Transfer to [facility] Solumedrol 100 mg daily Heme and ID consult Await ANCA, anti-GBM ab Repeat UA nd blood cultures Time Spent With Patient Time: Total time spent is greater than 50% in coordination of care (as documented) at patient's floor/unit and/or counseling patient: Progress Note: Quality Stroke Does the patient have a stroke diagnosis?: No
[2021-08-22] MEDS: Furosemide 200 MG in 0.9 % Sodium Chloride 80 ML IVCONT (10:21)
[2021-08-22 10:55] LABS: HBsAGNum1 0.27 S/CO (0.00-0.99); Hepatitis B Surface Antigen Negative (Negative)
[2021-08-22 11:05] LABS: Glucose, Whole Blood 122 mg/dL (60-115)
--- NOTE | 2021-08-22 11:45 | MHC.CM.PN ---
Pt will transfer to [facility] for continued care and treatment today once a bed becomes available. MD has notified family of plan.
[2021-08-22] MEDS: dilTIAZem HCL 50 MG/10 ML VIAL 25 MG IVPUSH (12:50)
[2021-08-22 13:23] LABS: Cardiolipin IgG Ab <2.0 GPL-U/mL; Cardiolipin IgM Ab <2.0 MPL-U/mL
--- NOTE | 2021-08-22 13:27 | MHC.CLN ---
F/U PT REMAINS INTUBATED AND SEDATED. PLAN IS FOR DIALYSIS TODAY AND TRANSFER TO [facility] ICU. SODIUM WNL AND RECOMMEND DECREASE FLUSH TO 240 ML Q 4 HOURS. TF RUNNING NEPRO AT MAX GOAL RATE 35ML/HR WITH 240ML FREE WATER FLUSHES Q 4 HRS TO PROVIDE 1512KCALS (1809KCALS WITH SEDATION; 25.8KCALS/KG IBW), 68G PROTEIN (.97G/KG IBW), 2050ML TOTAL WATER FROM FORMULA AND FLUSHES (29.3ML/KG IBW) TOLERATING CURRENT TUBE FEED WITH LOW RESIDUALS. CONTINUE CURRENT TUBE FEED WITH DECREASE TO FREE WATER FLUSH 240 ML Q 4 HOURS. MONITOR TOLERANCE, RESIDUALS, AND LYTES.
[2021-08-22 13:31] LABS: Adrenocorticotropic Hormone 9 pg/mL (6-50)
[2021-08-22] MEDS: Insulin Regular/NS 100 UNIT/100 ML PLAST..BAG 9 UNIT IVCONT (13:33)
[2021-08-22 13:39] LABS: Glucose, Whole Blood 124 mg/dL (60-115)
--- NOTE | 2021-08-22 14:17 | P.DS_ITS ---
DS: Providers Provider Date of Service: 08/22/21 Date of admission: 08/09/21 10:13 Date of discharge: 08/22/21 Primary care physician: Ada Urias NP Admitting clinician: Diego Lopez Attending physician on admission: Diego Lopez Consults: 08/09/21 10:46 Consult to Nephrology Routine Consulting Provider: Augustus Medina Reason for consultation: moni Has provider been notified: No 08/09/21 10:47 Consult to Cardiology Routine Consulting Provider: Solomon Ferrer Reason for consultation: new onset atfib Has provider been notified: No 08/09/21 10:50 Consult to Care Team Routine Comment: Reason for consultation: eton use 08/10/21 11:55 Addiction Medicine Routine Consulting Provider: Heather Bess Reason for consultation: excess etoh 08/11/21 10:22 Consult to Infectious Diseases Routine Consulting Provider: Kelin Dickens Reason for consultation: sepsis ?source 08/11/21 15:44 Consult to Gastroenterology Routine Consulting Provider: [facility] Reason for consultation: new dx cirrhosis 08/12/21 03:37 Consult to Psychiatry Routine Consulting Provider: Psych Covering Reason for consultation: HOMICIDAL 08/14/21 08:13 Consult to Cardiology Routine Consulting Provider: Mikey Aquino Reason for consultation: Persistent MSSA bacteremia. GIL? 08/14/21 11:44 Consult for Sitter Routine Reason for consultation: SI Consult to Psychiatry Routine Consulting Provider: Psych Covering Reason for consultation: SI 08/16/21 16:35 Consult to Infectious Diseases Routine Consulting Provider: Kelin Dickens Reason for consultation: Recurrent positive blood cultures Has provider been notified: Yes 08/18/21 08:01 Consult to General Surgery Routine Consulting Provider: Macario Jackson Reason for consultation: skin bopsy-palpable purpura Has provider been notified: Yes 08/18/21 08:22 Consult to Hematology / Oncology Routine Consulting Provider: Lindsay Maravilla Reason for consultation: diffuse purpuric rash with anemia/thrombocytopenia Has provider been notified: Yes 08/18/21 09:43 Consult to Pulmonology Routine Consulting Provider: Sanchez Wills Reason for consultation: alveolar hemorrhage Has provider been notified: Yes Attending physician on discharge: Sadia Cano Discharging clinician: Sadia Cano DS: Transfer Hospital Acceptance Reason for Transfer: Complicated vasculitic process with acute pulmonary/renal failure with possible need for plasmapheresis Name of Facility: [facility] Accepting Provider: Dr. Batsheva Guy DS: Diagnosis Discharge Diagnosis (1) Acute kidney injury: Status: Acute (2) MSSA bacteremia: Status: Acute (3) 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: Status: Acute (4) Palpable purpura: Status: Acute (5) Type 2 diabetes mellitus with chronic kidney disease: Status: Acute DS: Summary Hospital Course Hospital Course: 66-year-old type 2 diabetic with chronic stage III diabetic nephropathy has bilateral Charcot feet and had been falling lately so he presented to the emergency room and it was noted that he had a left foot abscess positive for methicillin sensitive Staph aureus as well as MSSA Staph bacteremia on all cultures spanning 5 days between the and the of of this month despite being on nafcillin and then the latest cultures from the were finally negative remaining on nafcillin at this point He developed an agitated delirium and hypoxic respiratory failure presenting with a multi lobar picture which jewel bearing turner to be diffuse alveolar hemorrhage along with progressive and now hemodialysis Dre requiring renal failure with significant azotemia but not frankly uremic but marked fluid overload with considerably elevated central venous pressure which went up to about 15 at clearly with increased chest infiltration probably consistent with pulmonary edema superimposed on the hemorrhagic picture He also developed a diffuse picture of palpable purpura and 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 and the ANCA immunology workup is still pending and he has received 3 days of high-dose pulsed steroids with methylprednisolone at a 1000 mg daily for 3 days and in addition he had also came in anemic and thrombocytopenic both of which intermittently becoming progressively worse and this was not a microangiopathic picture and this was not a picture of consumptive coagulopathy all determined Lila by his in a peripheral smear and he required multiple units of platelet transfusion and several units of red cell transfusion but the last 24 hours both his hemoglobin stabilizing at 8.6 and his platelet stabilizing at 47,000 for the 1st time Today because of fluid overload I placed a dialysis catheter he had 3 hours of dialysis and they removed 2500 cc of fluid CVP came down to 8 respiratory status looks comfortable In addition he has paroxysmal atrial fibrillation that response to Cardizem currently in normal sinus rhythm Time spent discussing smoking cessation with patient: more than 10 minutes Time Spent with Patient Time attestation: Total time spent providing and/or coordinating discharge services: Discharge coordination time: Greater than 30 minutes Quality: Safe Use of Opioids Does Pt have an Active Cancer Diagnosis on the Problem List?: No Quality: Stroke Does the patient have a stroke diagnosis?: No Physical Exam Vital Signs: Vital Signs: Last Vital Signs Temp 98.8 F 08/22/21 12:00 Pulse 71 08/22/21 14:00 Resp 12 08/22/21 14:00 BP 113/48 L 08/22/21 14:00 Pulse Ox 96 08/22/21 14:00 O2 Del Method 08/22/21 14:00 O2 Flow Rate 55 08/14/21 22:00 FiO2 55 08/22/21 14:00 BMI result Body Mass Index 34.8 Unsupported blood pressure 113/48 with a mean of 74 and on FiO2 of 50% his sat is 95% and he is in normal sinus rhythm at a rate of 71 He has awakened on several sedation holidays with appropriate cognitive function Bedside echo demonstrating clean valves normal LV function Lungs with coarse bilateral rales but no adventitious sounds otherwise and no accessory muscle use Abdomen distended but soft and nontender no organomegaly Skin he has got the anasarca and and he has got some residual of his rash namely the palpable purpura DS: Data Data Completed and Pending Completed studies during hospitalization [Text1]: Pending at discharge 08/18/21 16:53 Surgical [PTH] Routine 08/19/21 08:33 Surgical Path [Surgical] [PTH] Routine 08/19/21 09:05 Cytology [PTH] Urgent Labs on day of discharge: Laboratory Results - last 24 hr 08/19/21 08/19/21 08/19/21 05:51 18:06 18:15 WBC RBC Hgb Hct MCV MCH MCHC RDW Plt Count MPV Immature Gran % (Auto) Neut % (Auto) Lymph % (Auto) [place] % (Auto) Eos % (Auto) Baso % (Auto) Lymph # (Auto) [place] # (Auto) Eos # (Auto) Baso # (Auto) Abs Immat Gran (auto) Absolute Neuts (auto) Absolute Nucleated RBC Nucleated RBC % (auto) Smear Tech's Comments Haptoglobin 96 PT INR APTT Fibrinogen VBG pH VBG pCO2 VBG pO2 VBG HCO3 VBG O2 Saturation VBG Base Excess Sodium Potassium Chloride Carbon Dioxide Anion Gap BUN Creatinine Estim Creat Clear Calc Estimated GFR POC Glucose Random Glucose Calcium Phosphorus Magnesium Ferritin Total Bilirubin Direct Bilirubin AST ALT Alkaline Phosphatase Total Protein Total Protein (PEP) 7.4 Albumin Albumin (PEP) 2.9 L Uxiws-0-Cdcicvznc 0.3 Ztlyu-3-Lmxowcupb 0.5 Xwgn-0-Omhraapz 0.3 L Fjlh-0-Jmvgpape 0.8 H Gamma Globulins 2.6 H PEP Interpretation SEE NOTE ACTH U [place] Prot/Creat Ratio 1.042 H Ur Creatinine mg/dL 71 U Total Protein mg/dL 74 H Protein/Creatinin Ratio 1042 H Urine Albumin (%) 44 U Grxbu-2-Gocdjlab (%) 2 U Sgysi-7-Mmvmogej (%) 4 U Beta Globulin (%) 13 U Gamma Globulin (%) 37 U Abnormal Prot Band 1 TNP U Abnormal Prot Band 2 TNP U Abnormal Prot Band 3 TNP Urine PEP Interpret Glomerular Base Memb Ab <1.0 Anti-Cardiolipin IgG Ab Anti-Cardiolipin IgM Ab Hep Bs Antigen 08/20/21 08/21/21 08/21/21 13:21 08:31 15:18 WBC RBC Hgb Hct MCV MCH MCHC RDW Plt Count MPV Immature Gran % (Auto) Neut % (Auto) Lymph % (Auto) [place] % (Auto) Eos % (Auto) Baso % (Auto) Lymph # (Auto) [place] # (Auto) Eos # (Auto) Baso # (Auto) Abs Immat Gran (auto) Absolute Neuts (auto) Absolute Nucleated RBC Nucleated RBC % (auto) Smear Tech's Comments Haptoglobin PT INR APTT Fibrinogen VBG pH VBG pCO2 VBG pO2 VBG HCO3 VBG O2 Saturation VBG Base Excess Sodium Potassium Chloride Carbon Dioxide Anion Gap BUN Creatinine Estim Creat Clear Calc Estimated GFR POC Glucose 186 H Random Glucose Calcium Phosphorus Magnesium Ferritin Total Bilirubin Direct Bilirubin AST ALT Alkaline Phosphatase Total Protein Total Protein (PEP) Albumin Albumin (PEP) Nhrak-7-Ewtzolzwe Zcaio-0-Mcjbivahf Xlby-7-Ejmjdsrr Vylt-9-Fspocwdx Gamma Globulins PEP Interpretation ACTH 9 U [place] Prot/Creat Ratio Ur Creatinine mg/dL U Total Protein mg/dL Protein/Creatinin Ratio Urine Albumin (%) U Nobfq-8-Fdjthmpg (%) U Juecv-7-Omwsmtwm (%) U Beta Globulin (%) U Gamma Globulin (%) U Abnormal Prot Band 1 U Abnormal Prot Band 2 U Abnormal Prot Band 3 Urine PEP Interpret Glomerular Base Memb Ab Anti-Cardiolipin IgG Ab <2.0 Anti-Cardiolipin IgM Ab <2.0 Hep Bs Antigen 08/21/21 08/21/21 08/21/21 17:09 19:01 20:16 WBC RBC Hgb Hct MCV MCH MCHC RDW Plt Count MPV Immature Gran % (Auto) Neut % (Auto) Lymph % (Auto) [place] % (Auto) Eos % (Auto) Baso % (Auto) Lymph # (Auto) [place] # (Auto) Eos # (Auto) Baso # (Auto) Abs Immat Gran (auto) Absolute Neuts (auto) Absolute Nucleated RBC Nucleated RBC % (auto) Smear Tech's Comments Haptoglobin PT INR APTT Fibrinogen VBG pH VBG pCO2 VBG pO2 VBG HCO3 VBG O2 Saturation VBG Base Excess Sodium Potassium Chloride Carbon Dioxide Anion Gap BUN Creatinine Estim Creat Clear Calc Estimated GFR POC Glucose 188 H 205 H 201 H Random Glucose Calcium Phosphorus Magnesium Ferritin Total Bilirubin Direct Bilirubin AST ALT Alkaline Phosphatase Total Protein Total Protein (PEP) Albumin Albumin (PEP) Akjob-9-Vkwofshhe Pxgmg-8-Cqlixnitt Mrqh-3-Brsqufqx Xjbf-1-Ylrizhis Gamma Globulins PEP Interpretation ACTH U [place] Prot/Creat Ratio Ur Creatinine mg/dL U Total Protein mg/dL Protein/Creatinin Ratio Urine Albumin (%) U Ugucc-8-Qulqycaa (%) U Aggob-3-Wxcjbzez (%) U Beta Globulin (%) U Gamma Globulin (%) U Abnormal Prot Band 1 U Abnormal Prot Band 2 U Abnormal Prot Band 3 Urine PEP Interpret Glomerular Base Memb Ab Anti-Cardiolipin IgG Ab Anti-Cardiolipin IgM Ab Hep Bs Antigen 08/21/21 08/21/21 08/21/21 21:06 22:01 23:11 WBC RBC Hgb Hct MCV MCH MCHC RDW Plt Count MPV Immature Gran % (Auto) Neut % (Auto) Lymph % (Auto) [place] % (Auto) Eos % (Auto) Baso % (Auto) Lymph # (Auto) [place] # (Auto) Eos # (Auto) Baso # (Auto) Abs Immat Gran (auto) Absolute Neuts (auto) Absolute Nucleated RBC Nucleated RBC % (auto) Smear Tech's Comments Haptoglobin PT INR APTT Fibrinogen VBG pH VBG pCO2 VBG pO2 VBG HCO3 VBG O2 Saturation VBG Base Excess Sodium Potassium Chloride Carbon Dioxide Anion Gap BUN Creatinine Estim Creat Clear Calc Estimated GFR POC Glucose 193 H 191 H 194 H Random Glucose Calcium Phosphorus Magnesium Ferritin Total Bilirubin Direct Bilirubin AST ALT Alkaline Phosphatase Total Protein Total Protein (PEP) Albumin Albumin (PEP) Ojsvd-6-Iduqyiqbq Vvtxr-7-Kuuliwxwv Qtzk-4-Mymybkzb Txzf-7-Oowfmfri Gamma Globulins PEP Interpretation ACTH U [place] Prot/Creat Ratio Ur Creatinine mg/dL U Total Protein mg/dL Protein/Creatinin Ratio Urine Albumin (%) U Bpuvz-3-Hdmwzttp (%) U Ynjug-1-Zqpzsopj (%) U Beta Globulin (%) U Gamma Globulin (%) U Abnormal Prot Band 1 U Abnormal Prot Band 2 U Abnormal Prot Band 3 Urine PEP Interpret Glomerular Base Memb Ab Anti-Cardiolipin IgG Ab Anti-Cardiolipin IgM Ab Hep Bs Antigen 08/22/21 08/22/21 08/22/21 00:10 02:09 03:59 WBC RBC Hgb Hct MCV MCH MCHC RDW Plt Count MPV Immature Gran % (Auto) Neut % (Auto) Lymph % (Auto) [place] % (Auto) Eos % (Auto) Baso % (Auto) Lymph # (Auto) [place] # (Auto) Eos # (Auto) Baso # (Auto) Abs Immat Gran (auto) Absolute Neuts (auto) Absolute Nucleated RBC Nucleated RBC % (auto) Smear Tech's Comments Haptoglobin PT INR APTT Fibrinogen VBG pH VBG pCO2 VBG pO2 VBG HCO3 VBG O2 Saturation VBG Base Excess Sodium Potassium Chloride Carbon Dioxide Anion Gap BUN Creatinine Estim Creat Clear Calc Estimated GFR POC Glucose 178 H 165 H 162 H Random Glucose Calcium Phosphorus Magnesium Ferritin Total Bilirubin Direct Bilirubin AST ALT Alkaline Phosphatase Total Protein Total Protein (PEP) Albumin Albumin (PEP) Imfqr-2-Zsirarins Wcbln-1-Myxnilssg Satc-8-Dzzmjuot Rjya-6-Cljjokqe Gamma Globulins PEP Interpretation ACTH U [place] Prot/Creat Ratio Ur Creatinine mg/dL U Total Protein mg/dL Protein/Creatinin Ratio Urine Albumin (%) U Jvkoi-4-Yxoezxoe (%) U Pkyob-2-Jllnofks (%) U Beta Globulin (%) U Gamma Globulin (%) U Abnormal Prot Band 1 U Abnormal Prot Band 2 U Abnormal Prot Band 3 Urine PEP Interpret Glomerular Base Memb Ab Anti-Cardiolipin IgG Ab Anti-Cardiolipin IgM Ab Hep Bs Antigen 08/22/21 08/22/21 08/22/21 05:15 05:15 05:15 WBC 11.5 H RBC 2.78 L Hgb 8.6 L Hct 25.6 L MCV 92.1 MCH 30.9 MCHC 33.6 RDW 16.7 H Plt Count 47 L MPV 12.5 H Immature Gran % (Auto) 1.0 H Neut % (Auto) 92.5 H Lymph % (Auto) 2.7 L [place] % (Auto) 3.8 Eos % (Auto) 0.0 Baso % (Auto) 0.0 Lymph # (Auto) 0.3 L [place] # (Auto) 0.4 Eos # (Auto) 0.0 Baso # (Auto) 0.0 Abs Immat Gran (auto) 0.12 H Absolute Neuts (auto) 10.7 H Absolute Nucleated RBC 0.020 H Nucleated RBC % (auto) 0.2 Smear Tech's Comments VERIFIED Haptoglobin PT 16.5 H INR 1.4 H APTT 31.8 Fibrinogen 201 L VBG pH VBG pCO2 VBG pO2 VBG HCO3 VBG O2 Saturation VBG Base Excess Sodium 144 Potassium 3.6 Chloride 110 H Carbon Dioxide 22 Anion Gap 16 BUN 159 H Creatinine 2.41 H Estim Creat Clear Calc 35.0 Estimated GFR 27 POC Glucose Random Glucose 174 H Calcium 7.2 L Phosphorus 7.3 H Magnesium 2.4 Ferritin 1070 H Total Bilirubin 4.8 H Direct Bilirubin 3.8 H AST 50 H ALT < 6 Alkaline Phosphatase 81 Total Protein 6.9 Total Protein (PEP) Albumin 2.2 L Albumin (PEP) Xeupd-1-Itjmnwftv Wavka-8-Reuvpbnva Oppe-4-Hctrkmgf Yfwg-6-Wsryjzzl Gamma Globulins PEP Interpretation ACTH U [place] Prot/Creat Ratio Ur Creatinine mg/dL U Total Protein mg/dL Protein/Creatinin Ratio Urine Albumin (%) U Xdmjp-6-Betsuozt (%) U Slsse-9-Ygoqtvlx (%) U Beta Globulin (%) U Gamma Globulin (%) U Abnormal Prot Band 1 U Abnormal Prot Band 2 U Abnormal Prot Band 3 Urine PEP Interpret Glomerular Base Memb Ab Anti-Cardiolipin IgG Ab Anti-Cardiolipin IgM Ab Hep Bs Antigen 08/22/21 08/22/21 08/22/21 05:24 05:55 09:13 WBC RBC Hgb Hct MCV MCH MCHC RDW Plt Count MPV Immature Gran % (Auto) Neut % (Auto) Lymph % (Auto) [place] % (Auto) Eos % (Auto) Baso % (Auto) Lymph # (Auto) [place] # (Auto) Eos # (Auto) Baso # (Auto) Abs Immat Gran (auto) Absolute Neuts (auto) Absolute Nucleated RBC Nucleated RBC % (auto) Smear Tech's Comments Haptoglobin PT INR APTT Fibrinogen VBG pH 7.37 VBG pCO2 39 VBG pO2 60 VBG HCO3 23 VBG O2 Saturation 86.0 VBG Base Excess -1.4 Sodium Potassium Chloride Carbon Dioxide Anion Gap BUN Creatinine Estim Creat Clear Calc Estimated GFR POC Glucose 149 H 134 H Random Glucose Calcium Phosphorus Magnesium Ferritin Total Bilirubin Direct Bilirubin AST ALT Alkaline Phosphatase Total Protein Total Protein (PEP) Albumin Albumin (PEP) Fvpfz-9-Nchsajqdk Eaxei-4-Sdbjmobqa Wwxl-4-Uzjuqvxb Zefg-2-Sethjtwo Gamma Globulins PEP Interpretation ACTH U [place] Prot/Creat Ratio Ur Creatinine mg/dL U Total Protein mg/dL Protein/Creatinin Ratio Urine Albumin (%) U Nngrg-4-Khqzfatl (%) U Hhlzg-5-Jqlsqsxp (%) U Beta Globulin (%) U Gamma Globulin (%) U Abnormal Prot Band 1 U Abnormal Prot Band 2 U Abnormal Prot Band 3 Urine PEP Interpret Glomerular Base Memb Ab Anti-Cardiolipin IgG Ab Anti-Cardiolipin IgM Ab Hep Bs Antigen 08/22/21 08/22/21 08/22/21 10:09 11:01 13:36 WBC RBC Hgb Hct MCV MCH MCHC RDW Plt Count MPV Immature Gran % (Auto) Neut % (Auto) Lymph % (Auto) [place] % (Auto) Eos % (Auto) Baso % (Auto) Lymph # (Auto) [place] # (Auto) Eos # (Auto) Baso # (Auto) Abs Immat Gran (auto) Absolute Neuts (auto) Absolute Nucleated RBC Nucleated RBC % (auto) Smear Tech's Comments Haptoglobin PT INR APTT Fibrinogen VBG pH VBG pCO2 VBG pO2 VBG HCO3 VBG O2 Saturation VBG Base Excess Sodium Potassium Chloride Carbon Dioxide Anion Gap BUN Creatinine Estim Creat Clear Calc Estimated GFR POC Glucose 122 H 124 H Random Glucose Calcium Phosphorus Magnesium Ferritin Total Bilirubin Direct Bilirubin AST ALT Alkaline Phosphatase Total Protein Total Protein (PEP) Albumin Albumin (PEP) Ghsem-6-Xjhbfzfly Hundf-9-Vylkrrehp Byuf-8-Qudwjxxb Cmcl-2-Nofcqztk Gamma Globulins PEP Interpretation ACTH U [place] Prot/Creat Ratio Ur Creatinine mg/dL U Total Protein mg/dL Protein/Creatinin Ratio Urine Albumin (%) U Nzoun-7-Dsnaroqo (%) U Jxsjn-0-Upcutgdo (%) U Beta Globulin (%) U Gamma Globulin (%) U Abnormal Prot Band 1 U Abnormal Prot Band 2 U Abnormal Prot Band 3 Urine PEP Interpret Glomerular Base Memb Ab Anti-Cardiolipin IgG Ab Anti-Cardiolipin IgM Ab Hep Bs Antigen Negative Preliminary micro results at discharge 08/17/21 05:48 Blood Culture - Preliminary Blood - Venous Staphylococcus aureus 08/17/21 05:48 Blood Culture - Preliminary Blood - Venous Prelim: GPC Gram Stain only 08/21/21 16:36 Routine Culture - Preliminary Foot - Abscess Culture in progress. Discharge Plan Discharge Patient Disposition: er [facility] Discharge Diagnosis: Acute hypoxemic respiratory failure Diffuse alveolar hemorrhage Vasculitic/purpuric rash Acute on chronic now hemodialysis requiring renal failure Methicillin sensitive Staph aureus bacteremia Staphylococcal abscess left foot Type 2 diabetes mellitus with chronic nephropathy Paroxysmal atrial fibrillation Anemia Thrombocytopenia Referrals: Physician,Unknown J [Physician] - 1 Week Discharge Medications: No Action metformin 500 mg tablet extended release 24 hr 1,000 mg PO BID Qty: 120 2RF atorvastatin 40 mg tablet 1 tab PO BEDTIME insulin aspart U-100 [Novolog Flexpen U-100 Insulin] 100 unit/mL (3 mL) insulin pen 35 unit subcut TIDAC Trulicity 0.75 mg/0.5 mL pen injector 0.75 mg subcut WE Gabejeo Max U-300 SoloStar 300 unit/mL (3 mL) insulin pen 135 unit subcut DAILY spironolactone 25 mg tablet 25 mg PO DAILY (DME) lancets 33 gauge misc See Rx Instructions .ROUTE .MEDSUPPLY Qty: 100 Rx Instructions: As directed (DME) FreeStyle Lite Strips Strip See Rx Instructions Not Applicable .MEDSUPPLY Qty: 10 Rx Instructions: As directed aspirin 81 mg tablet,delayed release (DR/EC) 81 mg PO BEDTIME atorvastatin 40 mg tablet 40 mg PO DAILY hydrochlorothiazide 25 mg tablet 25 mg PO DAILY losartan 100 mg tablet 100 mg PO QAM furosemide 20 mg tablet 20 mg PO DAILY omeprazole 20 mg capsule,delayed release(DR/EC) 20 mg PO QAM amlodipine 5 mg tablet 5 mg PO DAILY metoprolol succinate 200 mg tablet extended release 24 hr 200 mg PO BEDTIME sildenafil 100 mg tablet 100 mg PO DAILY PRN (Reason: Sexual Activity) calcium carbonate-vitamin D3 600 mg-10 mcg (400 unit) tablet 1 tab PO DAILY Baqsimi 3 mg/actuation spray,non-aerosol 3 mg intranasal ONCE 30 Days Qty: 2 6RF Rx Instructions: [place] once for severe hypoglycemia when patient cannot self-treat with glucose. Afterwards turn on side. May repeat after 15 minutes if patient does not respond. glucose [Dex4 Glucose] 4 gram tablet,chewable 12 g PO Q15M PRN (Reason: hypoglycemia) Qty: 60 2RF Rx Instructions: until symptoms of low blood sugar are controlled Discharge Orders: Discharge Order (Routine); Ordered 08/22/21 Ordered By: Sadia Cano Diet: Renal Activity on Discharge: Rest with bed elevated Stand Alone Forms: Patient Portal Discharge page Care Plan Goals: Transfer to [facility] for rheumatology and renal and immunology consult and possible need for plasmapheresis Health Concerns: Possible vasculitic origin to the combined pulmonary and renal failure and therefore possible need for renal biopsy Plan of Treatment: Renal biopsy and ongoing hemodialysis as needed and then possible need for plasma for basis Assessment: Stable for discharge post dialysis treatment with 2500 cc of fluid removal and improvement in his azotemia
--- NOTE | 2021-08-22 14:40 | W.PM.CCHP ---
Procedures Date of Service Date of Service: 08/22/21 Procedure Note Procedure Note: Because of progressive azotemia and marked fluid overload with increased CVP to 17 and increased FiO2 requirement on the ventilator we needed to place dialysis catheter and Nephrology consult agreed with hemodialysis treatments to start today So after sterile preparation and draping in the usual fashion utilizing ultrasound guidance and the right internal jugular vein I gained easy entry without complication to the right internal jugular vein passing retrograde with Seldinger technique J tipped guidewire to the right atrium over which a 13 Turkish and 20 cm length dialysis catheter was placed in excellent position in the superior vena cava according to postoperative chest x-ray with no evidence of complication no pneumothorax
[2021-08-22 14:46] LABS: Anion Gap 15 (12-20); Carbon Dioxide 21 mmol/L (22-29); Chloride 109 mmol/L (96-108); Creatinine Clr Calc Pharmacy 39.9; Estimated Glomerular Filt Rate 32; Glucose Random 138 mg/dL (60-115); Potassium 3.5 mmol/L (3.3-5.1); Sodium 141 mmol/L (135-145)
--- NOTE | 2021-08-22 15:08 | PC.NURSE ---
1241 - patient converted from SR to AFIB RVR HR up to 170's, VSS - Cardizem 25mg IVP administered by Dr Hu and GTT ordered. 1301 - patient converted back to SR HR 70's, no ectopy - gtt never started at that time. notified.
[2021-08-22 15:14] LABS: Glucose, Whole Blood 117 mg/dL (60-115)
[2021-08-22 15:19] LABS: Blood Urea Nitrogen 123 mg/dL (9-16)
[2021-08-22 16:36] LABS: Myeloperoxidase Antibody <1.0 AI; Proteinase 3 PR3 Antibodies <1.0 AI
[2021-08-22 17:10] LABS: Glucose, Whole Blood 150 mg/dL (60-115)
[2021-08-23 06:57] LABS: Triiodothyronine T3 Free 0.7 pg/mL (2.3-4.2)
[2021-08-23 06:57] LABS: Prolactin 32.6 ng/mL (2.0-18.0)
[2021-08-23 13:12] LABS: IgA 1575 mg/dL (70-320); IgG 2257 mg/dL (600-1540); IgM 88 mg/dL (50-300)
[2021-08-24 14:22] LABS: Complement Total CH50 <10 U/mL (31-60)
[2021-08-26 11:16] LABS: Human Growth Hormone 0.4 ng/mL (< OR = 7.1)
[2021-08-26 13:16] LABS: C1Q Complement Component 8.1 mg/dL (5.0-8.6)
[2021-08-26 14:31] LABS: Histone Antibody <1.0 U (<1.0)
[2021-08-28 06:35] LABS: DRVVT Confirmation Negative (Negative); Hexagonal Phase Neutralization Weak Positive (Negative)
[2021-08-28 07:13] LABS: DRVVT 1:1 Mix Interpretation Not Indicated; PTT (LAC) Screen 50 sec (<=40); Thrombin Clotting Time 28 sec (13-19)
[2021-08-30 01:11] LABS: Prothrombin 20210A NEGATIVE
[2021-08-30 22:16] LABS: Factor V Leiden NEGATIVE
== END 2021-08-22 19:02 | disposition short-term general hospital (02) | DRG 682 ==
LOC: HO.ED 07:30 → HO.EDOVER 10:18 → HO.IMC 11:42 → HO.ICU 08-14 12:38
PROVIDERS: Anesthesiology; Family Medicine; Hospitalist; Internal Medicine; Internal Medicine Gastroenterology; Internal Medicine Nephrology; Physician Assistant; Physician Assistant Medical; Student in an Organized Health Care Education/Training Program; Admitting Provider Hospitalist; Emergency Provider Emergency Medicine Emergency Medical Services; PCP Hospitalist; Visit Provider Internal Medicine Cardiovascular Disease
PROC: 0BJ08ZZ Inspection of Tracheobronchial Tree, Via Natural or Artificial Opening Endoscopic (ICD-10-PCS; CPT 31622; principal; 2021-08-19 08:00)
DX: N17.0 Acute kidney failure with tubular necrosis (principal); R65.20 Severe sepsis without septic shock; G93.41 Metabolic encephalopathy; J15.211 Pneumonia due to Methicillin susceptible Staphylococcus aureus; J96.01 Acute respiratory failure with hypoxia; A41.01 Sepsis due to Methicillin susceptible Staphylococcus aureus; E87.1 Hypo-osmolality and hyponatremia; E87.2 Acidosis; D68.4 Acquired coagulation factor deficiency; F05 Delirium due to known physiological condition; M31.0 Hypersensitivity angiitis; R04.2 Hemoptysis; R04.89 Hemorrhage from other sites in respiratory passages; E23.0 Hypopituitarism; L02.612 Cutaneous abscess of left foot; I12.9 Hypertensive chronic kidney disease with stage 1 through stage 4 chronic kidney disease, or unspecified chronic kidney disease; I48.0 Paroxysmal atrial fibrillation; N18.30 Chronic kidney disease, stage 3 unspecified; G47.33 Obstructive sleep apnea (adult) (pediatric); D69.59 Other secondary thrombocytopenia; R29.6 Repeated falls; D63.1 Anemia in chronic kidney disease; E87.5 Hyperkalemia; K70.11 Alcoholic hepatitis with ascites; E11.22 Type 2 diabetes mellitus with diabetic chronic kidney disease; Z91.81 History of falling; I95.9 Hypotension, unspecified; R45.850 Homicidal ideations; E86.1 Hypovolemia; E78.5 Hyperlipidemia, unspecified; K08.89 Other specified disorders of teeth and supporting structures; E66.9 Obesity, unspecified; Z68.34 Body mass index [BMI] 34.0-34.9, adult; D69.2 Other nonthrombocytopenic purpura; E11.610 Type 2 diabetes mellitus with diabetic neuropathic arthropathy; K70.31 Alcoholic cirrhosis of liver with ascites; Z20.822 Contact with and (suspected) exposure to COVID-19; Z86.010 Personal history of colon polyps; Z79.82 Long term (current) use of aspirin; E11.65 Type 2 diabetes mellitus with hyperglycemia; Z79.890 Hormone replacement therapy; Z79.4 Long term (current) use of insulin; Z79.899 Other long term (current) drug therapy
CPT/HCPCS: 36415; 36430; 70450; 71045; 71250; 72125; 72156; 73700; 74176; 76700; 80048; 80053; 80076; 80202; 81003; 81240; 81241; 82024; 82077; 82140; 82272; 82570; 82595; 82728; 82784; 82803; 82947; 83003; 83010; 83516; 83520; 83540; 83605; 83615; 83690; 83735; 83880; 83930; 83935; 84100; 84145; 84146; 84156; 84165; 84166; 84300; 84425; 84439; 84443; 84481; 84484; 85007; 85025; 85027; 85384; 85597; 85610; 85613; 85652; 85730; 86015; 86021; 86038; 86039; 86140; 86147; 86160; 86162; 86255; 86256; 86334; 86335; 86431; 86704; 86706; 86803; 86850; 86880; 86900; 86901; 86923; 87040; 87070; 87071; 87077; 87147; 87186; 87205; 87340; 87389; 87493; 87635; 88112; 88305; 88313; 89190; 90999; 92526; 92610; 93005; 93306; 93312; 93970; 93971; 94002; 94003; 94640; 94799; 96361; 96374; 97110; 97163; 99285; A9585; C1758; J0171; J0637; J0690; J0692; J0696; J1170; J1200; J1940; J2270; J2543; J2920; J2930; J3010; J3370; J3411; J3430; P9016; P9035; P9047; P9073; Q9957